=== PATIENT | male | born 1935 | race Hispanic/Latino ===

== ENCOUNTER 2016-05-22 13:51 | Inpatient (IN) | payer MEDICARE ==
[2016-05-22] MEDS ORDERED: PROVENTIL IH ONE ×2 (14:00→14:07)
[2016-05-22] MEDS ORDERED: NACL 0.9% 1000 ML 1,000 ML IV ONE (14:00)
[2016-05-22] MEDS ORDERED: ATROVENT IH ONE (14:08)
--- NOTE | 2016-05-22 14:25 | Emergency Department Report ---
ED Shortness of Breath HPI - General Chief Complaint: Dyspnea/Respdistress Stated Complaint: PRINCE Time Seen by Provider: 05/22/16 14:02 Source: police, EMS Mode of arrival: Stretcher Limitations: No Limitations - History of Present Illness Initial Comments: 80-year-old male presents to the emergency department via EMS complaining of difficulty breathing. Patient reports symptoms have been present for the past 3 days and have progressively gotten worse. He reports occasional cough productive of white sputum. He denies chest pain, fever, nausea, or vomiting. Patient normally wears 3 L of oxygen at home via nasal cannula. EMS administered 5 mg of albuterol, 125 mg of site Medrol, and 2 g of IV magnesium prior to arrival. There are no other complaints. MD Complaint: shortness of breath, cough -: Gradual, days(s) (3) Severity: severe Pain Scale: 0 Consistency: constant Improves With: nothing Worsens With: nothing Known History Of: COPD, diabetes Associated Symptoms: denies other symptoms Treatments Prior to Arrival: oxygen, bronchodilator - Related Data Home Oxygen Therapy: Yes Home Oxygen Amount: 3 Liters Allergies Allergy/AdvReac Type Severity Reaction Status Date / Time No Known Allergies Allergy Unverified 05/22/16 14:00 ED Review of Systems ROS: Stated complaint: PRINCE Other details as noted in HPI Comment: All other systems reviewed and negative Respiratory: cough, shortness of breath ED Past Medical Hx - Past Medical History Previous Medical History?: Yes Hx Hypertension: Yes Hx Diabetes: Yes Hx COPD: Yes - Surgical History Additional Surgical History: unknown - Family History Family history: no significant - Social History Smoking Status: Unknown if ever smoked Substance Use Type: None ED Physical Exam - General Limitations: Physical Limitation General appearance: alert, in distress (moderate respiratory distress) - Head Head exam: Present: atraumatic, normocephalic - Eye Eye exam: Present: normal appearance, PERRL, EOMI - ENT ENT exam: Present: normal exam, normal orophraynx, mucous membranes moist - Neck Neck exam: Present: normal inspection, full ROM. Absent: tenderness - Respiratory Respiratory exam: Present: respiratory distress (moderate tachypnea), wheezes ( diffuse posterior), accessory muscle use - Cardiovascular Cardiovascular Exam: Present: normal rhythm, tachycardia, normal heart sounds - GI/Abdominal GI/Abdominal exam: Present: soft, normal bowel sounds. Absent: distended, tenderness - Extremities Exam Extremities exam: Present: normal inspection, full ROM. Absent: tenderness - Back Exam Back exam: Present: normal inspection, full ROM. Absent: tenderness - Neurological Exam Neurological exam: Present: alert, oriented X3. Absent: motor sensory deficit - Skin Skin exam: Present: warm, dry, intact ED Course Vital Signs 05/22/16 05/22/16 05/22/16 13:57 14:01 14:05 Temperature 97.3 F L Pulse Rate 138 H 115 H Pulse Rate [ Anterior Bilateral Throughout] Respiratory 44 H 28 H Rate Respiratory Rate [Anterior Bilateral Throughout] Blood Pressure 170/110 O2 Sat by Pulse 90 100 Oximetry 05/22/16 05/22/16 05/22/16 14:18 15:17 15:19 Temperature Pulse Rate 108 H Pulse Rate [ 113 H 107 H Anterior Bilateral Throughout] Respiratory 31 H Rate Respiratory 34 H 31 H Rate [Anterior Bilateral Throughout] Blood Pressure 111/62 O2 Sat by Pulse 100 Oximetry 05/22/16 15:22 Temperature Pulse Rate Pulse Rate [ Anterior Bilateral Throughout] Respiratory Rate Respiratory Rate [Anterior Bilateral Throughout] Blood Pressure O2 Sat by Pulse 99 Oximetry - Reevaluation(s) Reevaluation #1: 05/22/16 14:24 Patient was immediately placed on NIPPV on arrival. This resulted in a decreased work of breathing. Administering an hour long nebulizer treatment. We will continue to monitor. Reevaluation #2: 05/22/16 15:35 Lab and imaging results reviewed and discussed with the patient. Patient reported feeling better on the BiPAP machine. Patient was given a trial off of the BiPAP, but certainly began having increased work of breathing and worsening shortness of breath. Patient will be placed back on the BiPAP machine. Having IV Levaquin. Patient is to be admitted by the hospitalist. ED Medical Decision Making - Lab Data Result diagrams: 05/22/16 14:25 05/22/16 14:24 - EKG Data -: EKG Interpreted by Me EKG shows normal: sinus rhythm, axis, QRS complexes Rate: tachycardia - EKG Data When compared to previous EKG there are: previous EKG unavailable Interpretation: nonspecific ST-T wave juan c, other (sinus tachycardia with first- degree AV block) - Radiology Data Radiology results: report reviewed, image reviewed Chest x-ray shows changes consistent with COPD. There is no acute cardiopulmonary abnormality. - Differential Diagnosis COPD exacerbation, pneumonia, ACS Critical care attestation.: If time is entered above; I have spent that time in minutes in the direct care of this critically ill patient, excluding procedure time. ED Disposition Clinical Impression: COPD exacerbation Disposition: OP ADMITTED IP TO THIS HOSP Is pt being admited?: Yes Condition: Stable Instructions: Chronic Obstructive Pulmonary Disease (ED) Time of Disposition: 15:36
[2016-05-22 14:33] LABS: Basophils % (Auto) 0.6 % (0.0-1.8); Eosinophils % (Auto) 1.1 % (0.0-4.3); Hematocrit 28.7 % (35.5-45.6); Hemoglobin 9.5 gm/dl (11.8-15.2); Mean Corpuscular HGB Conc 33 % (32-34); Mean Corpuscular Hemoglobin 29 pg (28-32); Mean Corpuscular Volume 88 fl (84-94); Platelet Count 272 K/mm3 (140-440); Red Blood Count 3.24 M/mm3 (3.65-5.03); Red Cell Distribution Width 15.5 % (13.2-15.2)
[2016-05-22 14:43] LABS: INR 1.09 (0.87-1.13)
--- NOTE | 2016-05-22 14:52 | XRay Report ---
AP CHEST: HISTORY: Sepsis AP view of the chest demonstrates a normal mediastinal and cardiac contour with clear lungs and normal bony and soft tissue structures. IMPRESSION: No acute cardiopulmonary process appreciated.
[2016-05-22 14:59] LABS: Creatine Kinase MB 2.1 ng/mL (0.0-4.0)
[2016-05-22 15:02] LABS: Albumin 3.5 g/dL (3.9-5); Albumin/Globulin Ratio 1.1 %; BUN/Creatinine Ratio 14.61; Bilirubin,Total 0.2 mg/dL (0.1-1.2); Calcium 8.5 mg/dL (8.4-10.2); Chloride 93.4 mmol/L (98-107); Potassium 4.3 mmol/L (3.6-5.0); Total Protein 6.8 g/dL (6.3-8.2)
[2016-05-22] MEDS ORDERED: LEVAQUIN 750MG/150ML 150 ML IV ONE (15:31)
[2016-05-22 23:46] LABS: Bilirubin,Urine NEG (Negative); Blood,Urine NEG (Negative); Ketones,Urine TR mg/dL (Negative); Leukocyte Esterase,Urine NEG (Negative); Mucus,Urine FEW /HPF; Nitrite,Urine NEG (Negative); Urobilinogen,Urine < 2.0 mg/dL (<2.0)
[2016-05-23] MEDS: ATIVAN IV PRN ×2 (03:16→14:20)
--- NOTE | 2016-05-23 04:10 | Event Note ---
Date: 05/22/16 See H/p in reports COPD exacerbation HTN T2DM HLD
[2016-05-23] MEDS ORDERED: PROAIR IH PRN (04:19)
[2016-05-23] MEDS ORDERED: ZOFRAN IV PRN (04:22)
[2016-05-23] MEDS ORDERED: DULCOLAX PR PRN (04:22)
[2016-05-23] MEDS ORDERED: MILK OF MAGNESIA PO PRN (04:22)
[2016-05-23] MEDS ORDERED: TYLENOL PO PRN (04:22)
[2016-05-23] MEDS ORDERED: PERCOCET 5/325 PO PRN (04:22)
[2016-05-23] MEDS ORDERED: DUONEB 0.5 MG-3 MG/3 ML SOLN IH PRN (04:24)
[2016-05-23] MEDS ORDERED: PROVENTIL IH PRN ×2 (04:32→09:04)
--- NOTE | 2016-05-23 05:05 | History and Physical Report ---
CHIEF COMPLAINT: Difficulty breathing. HISTORY OF PRESENT ILLNESS: An 80-year-old male, who presents via EMS for progressively worsening shortness of breath for three days. Reports cough, productive of mucoid sputum. Denies fever or chills. He was having shortness of breath. Normally wears 3 liters of oxygen at home via nasal cannula. The patient continues to be short of breath. EMS gave a nebulizer treatment and was Solu-Medrol and IV magnesium, but with no relief. Worsening shortness of breath. PAST MEDICAL HISTORY: Significant for hypertension, diabetes, COPD, hyperlipidemia, asthma, and vitamin D deficiency. PAST SURGICAL HISTORY: None known. FAMILY HISTORY: No hypertension. SOCIAL HISTORY: Does not smoke. No alcohol, no recreational drugs. REVIEW OF SYSTEMS: Significant for worsening shortness of breath. Cough productive of mucoid sputum. PHYSICAL EXAMINATION: GENERAL: On examination, well-developed, well-nourished male, in moderate respiratory distress. VITAL SIGNS: Blood pressure is 111/62, temperature is 97.3, blood pressure is 170/110, it has come down to 111/62, respiratory rate is 34. HEENT: Unremarkable. Pupils equal and reactive. NECK: Supple, no lymphadenopathy, no thyromegaly. Accessory muscles of respiration are prominent. LUNGS: Bilateral inspiratory and expiratory rhonchi present. CARDIOVASCULAR: S1, S2 heard. No gallop, no murmur, no rub. Apical impulse in left fifth intercostal space and midclavicular line. ABDOMEN: Soft and benign. No hepatosplenomegaly. No guarding, no rigidity. Hernial orifices are normal. EXTREMITIES: Good pedal pulses. No pedal edema. CENTRAL NERVOUS SYSTEM: Alert and oriented x 4, nonfocal exam. SKIN: Normal. LABORATORY DATA: White count is 6000, H and H is 9.5 and 28.7, platelet count is 272,000. Sodium is 133, potassium is 4.3, chloride is 93.4, bicarbonate is 19, BUN and creatinine is 19 and 1.3, glucose is 121, total CK is 53. Urine was negative. EKG shows normal sinus rhythm, nonspecific ST-T wave changes. Sinus tachycardia with first-degree AV block present. Chest x-ray shows changes consistent with COPD. No infiltrates. ASSESSMENT AND PLAN: 1. Chronic obstructive pulmonary disease excerebration with hypoxia. The patient on BiPAP. Continue DuoNeb, Solu-Medrol and Levaquin. Pulmonary consult by requested. 2. Hypertension. Continue Maxzide 37.5/25 and diltiazem 120 mg p.o. b.i.d. 3. Hyperlipidemia. Continue pravastatin 40 mg p.o. daily. 4. Non insulin-dependent diabetes. Continue metformin 500 mg twice a day. 5. Asthma/chronic obstructive pulmonary disease. Continue Singulair 10 mg daily, and Flonase 2 sprays daily and Advair Diskus 500/50, 1 puff b.i.d. 6. Allergic rhinitis. Loratadine 10 mg daily. 7. Deep venous thrombosis prophylaxis, Lovenox 40 mg subcutaneous daily. JOB# [id number] LARRY/ROQUE
[2016-05-23] MEDS: DUONEB 0.5 MG-3 MG/3 ML SOLN IH SCH ×4 (05:46→20:35)
[2016-05-23] MEDS ORDERED: PULMICORT IH SCH (08:00)
[2016-05-23] MEDS ORDERED: BROVANA NEBU IH SCH ×2 (08:00→20:00)
[2016-05-23] MEDS ORDERED: NON-FORMULARY (Fluticasone/Salmeterol [Advair Diskus 500-50 Mcg] 1 PUFF) IH SCH (10:00)
[2016-05-23] MEDS: LEVAQUIN 750MG/150ML 150 ML IV SCH (10:45)
[2016-05-23] MEDS: COZAAR PO SCH (10:46)
[2016-05-23] MEDS: MAXZIDE-25 PO SCH (10:47)
[2016-05-23] MEDS: CARDIZEM CD PO SCH ×2 (10:47→22:50)
[2016-05-23] MEDS: VITAMIN D2 PO SCH (10:47)
[2016-05-23] MEDS: ASPIRIN PO SCH (10:47)
[2016-05-23] MEDS: FLONASE NS SCH (10:48)
[2016-05-23] MEDS: NOVOLOG SUB-Q SCH ×4 (10:49→23:45)
[2016-05-23] MEDS: GLUCOPHAGE PO SCH ×2 (10:51→17:12)
--- NOTE | 2016-05-23 11:17 | Consultation ---
History of Present Illness Consult date: 05/23/16 Requesting physician: NOMI BAUTISTA Reason for consult: COPD History of present illness: PULMONARY/CCM CONSULT NOTE (Full dictation # [id number]) Please see dictated notes for full details Medications and Allergies Allergies Allergy/AdvReac Type Severity Reaction Status Date / Time No Known Allergies Allergy Unverified 05/22/16 14:00 Home Medications Medication Instructions Recorded Confirmed Last Taken Type Albuterol Sulfate [Ventolin HFA] 2 puff IH Q4H PRN 05/22/16 05/22/16 05/21/16 History Alendronate Sodium [Fosamax] 70 mg PO QWEEK 05/22/16 05/22/16 05/21/16 History Aspirin [Aspirin TAB] 325 mg PO QDAY 05/22/16 05/22/16 05/21/16 History Diltiazem HCl [Diltiazem ER] 120 mg PO BID 05/22/16 05/22/16 05/21/16 History Ergocalciferol [Vitamin D2] 1 cap PO QWEEK 05/22/16 05/22/16 05/21/16 History Fluticasone [Flonase] 2 spray NS QDAY 05/22/16 05/22/16 05/21/16 History Fluticasone/Salmeterol [Advair 1 puff IH BID 05/22/16 05/22/16 05/21/16 History Diskus 500-50 mcg] Ipratropium/Albuterol Sulfate 1 ampul IH Q6HR PRN 05/22/16 05/22/16 05/21/16 History [Duoneb 0.5 mg-3 mg/3 ml Soln] Ketoconazole 2% [Nizoral] 1 applicatio TP QDAY 05/22/16 05/22/16 05/21/16 History Loratadine [Claritin] 10 mg PO DAILY 05/22/16 05/22/16 05/21/16 History Losartan [Cozaar] 50 mg PO QDAY 05/22/16 05/22/16 05/21/16 History Meclizine HCl [Meclizine CHEW] 25 mg PO QDAY PRN 05/22/16 05/22/16 05/21/16 History Montelukast [Singulair] 10 mg PO QPM 05/22/16 05/22/16 05/21/16 History Pravastatin Sodium [Pravastatin] 40 mg PO QHS 05/22/16 05/22/16 05/21/16 History Triamter/Hctz 37.5-25 mg 1 tab PO QDAY 05/22/16 05/22/16 05/21/16 History [Maxzide-25] metFORMIN [Glucophage] 500 mg PO BID 05/22/16 05/22/16 05/21/16 History Active Meds: Active Medications Acetaminophen (Tylenol) 650 mg PO Q4H PRN PRN Reason: Pain MILD(1-3)/Fever >100.5/PÉREZ Albuterol (Proventil) 2.5 mg IH Q4HRT PRN PRN Reason: Shortness Of Breath Albuterol/Ipratropium (Duoneb 0.5 Mg-3 Mg/3 Ml Soln) 1 ampul IH Q6HRT [facility] Arformoterol Tartrate (Brovana Nebu) 15 mcg IH Q12HRT [facility] Aspirin (Aspirin) 325 mg PO QDAY [facility] Last Admin: 05/23/16 10:47 Dose: 325 mg Bisacodyl (Dulcolax) 10 mg NE QDAY PRN PRN Reason: Constipation unrelieved by MOM Budesonide (Pulmicort) 0.5 mg IH Q12HRT [facility] Diltiazem HCl (Cardizem Cd) 120 mg PO BID [facility] Last Admin: 05/23/16 10:47 Dose: 120 mg Ergocalciferol (Vitamin D2) 50,000 unit PO Sa [facility] Last Admin: 05/23/16 10:47 Dose: 50,000 unit Fluticasone Propionate (Flonase) 100 mcg NS QDAY [facility] Last Admin: 05/23/16 10:48 Dose: 100 mcg Hydromorphone HCl (Dilaudid) 0.5 mg IV Q3H PRN PRN Reason: Pain , Severe (7-10) Levofloxacin/Dextrose (Levaquin 750mg/150ml) 150 mls @ 100 mls/hr IV Q24HR [facility] PRN Reason: Protocol Last Admin: 05/23/16 10:45 Dose: 100 mls/hr Insulin Aspart (Novolog) 0 units SUB-Q ACHS [facility] PRN Reason: Protocol Last Admin: 05/23/16 10:49 Dose: Not Given Lorazepam (Ativan) 1 mg IV Q2H PRN PRN Reason: Anxiety Last Admin: 05/23/16 03:16 Dose: 1 mg Losartan Potassium (Cozaar) 50 mg PO QDAY [facility] Last Admin: 05/23/16 10:46 Dose: 50 mg Magnesium Hydroxide (Milk Of Magnesia) 30 ml PO Q4H PRN PRN Reason: Constipation Metformin HCl (Glucophage) 500 mg PO BIDDIAB [facility] Last Admin: 05/23/16 10:51 Dose: 500 mg Methylprednisolone Sodium Succinate (Solu-Medrol) 60 mg IV Q8HR [facility] Last Admin: 05/23/16 05:21 Dose: 60 mg Montelukast Sodium (Singulair) 10 mg PO QPM [facility] Ondansetron HCl (Zofran) 4 mg IV Q8H PRN PRN Reason: N/V unrelieved by Reglan Oxycodone/Acetaminophen (Percocet 5/325) 1 tab PO Q6H PRN PRN Reason: Pain, Moderate (4-6) Simvastatin (Zocor) 20 mg PO QHS [facility] Triamterene/HCTZ (Maxzide-25) 1 each PO QDAY [facility] Last Admin: 05/23/16 10:47 Dose: 1 each Physical Examination Vital signs: Vital Signs Temp Pulse BP Pulse Ox 97.3 F L 138 H 170/110 90 05/22/16 13:57 05/22/16 13:57 05/22/16 13:57 05/22/16 13:57 Results - Laboratory Findings CBC and BMP: 05/22/16 14:25 05/22/16 14:24 PT/INR, D-dimer PT 14.0 Sec. (12.2-14.9) 05/22/16 14:24 INR 1.09 (0.87-1.13) 05/22/16 14:24 Abnormal lab findings: Abnormal Labs 05/23/16 06:02 Hemoglobin A1c 6.4 H
--- NOTE | 2016-05-23 13:16 | Progress Note ---
Assessment and Plan Assessment and plan: 80-year-old male admitted with shortness of breath for 3 days reported cough with productive sputum on admission. With no chills. Normally on 3 L of oxygen at home. Requiring BiPAP. * Acute on chronic hypoxic respiratory failure * COPD exacerbation/+-asthma * Diabetes mellitus uncontrolled * Hypertension * Tremor * Hyperlipidemia * Allergic rhinitis * Metabolic acidosis * Sinus tachycardia Plan * Patient currently on BiPAP will continue this point suspicion does not have good air movement. Continues on Solu-Medrol with Levaquin. * Pulmonary input appreciated * Continue systemic IV steroids and inhaled steroids and also nebulizer treatments * We'll continue to monitor blood glucose is 6. * Prognosis guarded * SODIUM bicarbonate medication list monitor. * Tremor noted with movement patient denies history of Parkinson oral require further evaluation of the patient's versus if this is secondary to steroids I doubt the latter. * DVT and GI prophylaxis * The high probability of a clinically significant, sudden or life threatening deterioration of the [respiratory] system(s) required my full and direct attention, intervention and personal management. The aggregate critical care time was [35] minutes. This time is in addition to time spent performing reported procedures but includes the following: [x] Data Review and interpretation [x] Patient assessment and monitoring of vital signs [x] Documentation [x] Medication orders and management History Interval history: Patient seen and examined this morning in moderate respiratory distress Denies any chest pain, nausea, vomiting, diarrhea, but patient still has significant shortness of breath continues on BiPAP. No fever noted blood pressure controlled No adverse events reported to me by nursing staff Hospitalist Physical - Physical exam Narrative exam: VITAL SIGNS: Reviewed. GENERAL: The patient appeared well nourished and normally developed on BiPAP, anxious moderate respiratory distress. Vital signs as documented. HEAD: No signs of head trauma. EYES: Pupils are equal. Extraocular motions intact. EARS: Hearing grossly intact. MOUTH: Oropharynx is normal. NECK: No adenopathy, no JVD. CHEST: Chest with diminished with expiratory wheezes breath sounds bilaterally CARDIAC: Regular rate and rhythm. S1 and S2, without murmurs, gallops, or rubs. VASCULAR: No Edema. Peripheral pulses normal and equal in all extremities. ABDOMEN: Soft, without detectable tenderness. No sign of distention. No rebound or guarding, and no masses palpated. Bowel Sounds normal. MUSCULOSKELETAL: Good range of motion of all major joints. Extremities without clubbing, cyanosis or edema. NEUROLOGIC EXAM: Alert and oriented x 3. No focal sensory or strength deficits. Speech normal. Follows commands. PSYCHIATRIC: Mood normal. SKIN: No rash or lesions. - Constitutional Vitals: Temp Pulse Resp BP Pulse Ox 98.6 F 131 H 29 H 134/93 99 05/23/16 12:32 05/23/16 12:32 05/23/16 12:32 05/23/16 12:32 05/23/16 10:39 Results - Labs CBC & Chem 7: 05/22/16 14:25 05/22/16 14:24 Labs: Laboratory Last Values WBC 6.0 K/mm3 (4.5-11.0) 05/22/16 14:25 RBC 3.24 M/mm3 (3.65-5.03) L 05/22/16 14:25 Hgb 9.5 gm/dl (11.8-15.2) L 05/22/16 14:25 Hct 28.7 % (35.5-45.6) L 05/22/16 14:25 MCV 88 fl (84-94) 05/22/16 14:25 MCH 29 pg (28-32) 05/22/16 14:25 MCHC 33 % (32-34) 05/22/16 14:25 RDW 15.5 % (13.2-15.2) H 05/22/16 14:25 Plt Count 272 K/mm3 (140-440) 05/22/16 14:25 Lymph % (Auto) 13.0 % (13.4-35.0) L 05/22/16 14:25 [place] % (Auto) 13.1 % (0.0-7.3) H 05/22/16 14:25 Eos % (Auto) 1.1 % (0.0-4.3) 05/22/16 14:25 Baso % (Auto) 0.6 % (0.0-1.8) 05/22/16 14:25 Lymph # 0.8 K/mm3 (1.2-5.4) L 05/22/16 14:25 [place] # 0.8 K/mm3 (0.0-0.8) 05/22/16 14:25 Eos # 0.1 K/mm3 (0.0-0.4) 05/22/16 14:25 Baso # 0.0 K/mm3 (0.0-0.1) 05/22/16 14:25 Seg Neutrophils % 72.2 % (40.0-70.0) H 05/22/16 14:25 Seg Neutrophils # 4.4 K/mm3 (1.8-7.7) 05/22/16 14:25 PT 14.0 Sec. (12.2-14.9) 05/22/16 14:24 INR 1.09 (0.87-1.13) 05/22/16 14:24 VBG pH 7.403 (7.320-7.420) 05/22/16 14:24 Sodium 133 mmol/L (137-145) L 05/22/16 14:24 Potassium 4.3 mmol/L (3.6-5.0) 05/22/16 14:24 Chloride 93.4 mmol/L (98-107) L 05/22/16 14:24 Carbon Dioxide 19 mmol/L (22-30) L 05/22/16 14:24 Anion Gap 25 mmol/L 05/22/16 14:24 BUN 19 mg/dL (9-20) 05/22/16 14:24 Creatinine 1.3 mg/dL (0.8-1.5) 05/22/16 14:24 Estimated GFR 53 ml/min 05/22/16 14:24 BUN/Creatinine Ratio 14.61 % 05/22/16 14:24 Glucose 121 mg/dL (75-100) H 05/22/16 14:24 Hemoglobin A1c 6.4 % (4-6) H 05/23/16 06:02 Lactic Acid 1.5 mmol/L (0.7-2.0) 05/22/16 17:24 Calcium 8.5 mg/dL (8.4-10.2) 05/22/16 14:24 Total Bilirubin 0.2 mg/dL (0.1-1.2) 05/22/16 14:24 AST 16 units/L (5-40) 05/22/16 14:24 ALT 12 units/L (7-56) 05/22/16 14:24 Alkaline Phosphatase 107 units/L (35-129) 05/22/16 14:24 Total Creatine Kinase 53 units/L (55-170) L 05/22/16 14:24 CK-MB (CK-2) 2.1 ng/mL (0.0-4.0) 05/22/16 14:24 CK-MB (CK-2) Rel Index 3.9 (0-4) 05/22/16 14:24 Troponin T 0.023 ng/mL (0.00-0.029) 05/22/16 14:24 NT-Pro-B Natriuret Pep 316.0 pg/mL (0-900) 05/22/16 14:24 Total Protein 6.8 g/dL (6.3-8.2) 05/22/16 14:24 Albumin 3.5 g/dL (3.9-5) L 05/22/16 14:24 Albumin/Globulin Ratio 1.1 % 05/22/16 14:24 Urine Color Yellow (Yellow) 05/22/16 22:30 Urine Turbidity Clear (Clear) 05/22/16 22:30 Urine pH 5.0 (5.0-7.0) 05/22/16 22:30 Ur Specific [place] 1.016 (1.003-1.030) 05/22/16 22:30 Urine Protein 30 mg/dl mg/dL (Negative) 05/22/16 22:30 Urine Glucose (UA) Neg mg/dL (Negative) 05/22/16 22:30 Urine Ketones Tr mg/dL (Negative) 05/22/16 22:30 Urine Blood Neg (Negative) 05/22/16 22:30 Urine Nitrite Neg (Negative) 05/22/16 22:30 Urine Bilirubin Neg (Negative) 05/22/16 22:30 Urine Urobilinogen < 2.0 mg/dL (<2.0) 05/22/16 22:30 Ur Leukocyte Esterase Neg (Negative) 05/22/16 22:30 Urine WBC (Auto) 3.0 /HPF (0.0-6.0) 05/22/16 22:30 Urine RBC (Auto) 1.0 /HPF (0.0-6.0) 05/22/16 22:30 U Epithel Cells (Auto) < 1.0 /HPF (0-13.0) 05/22/16 22:30 Hyaline Casts 1 /LPF 05/22/16 22:30 Urine Mucus Few /HPF 05/22/16 22:30 - Imaging and Cardiology EKG: image reviewed (sinus tachycardia) Chest x-ray: image reviewed (personally reviewed chest x-ray COPD appearance of the)
[2016-05-23] MEDS: SINGULAIR PO SCH (17:12)
[2016-05-23] MEDS: PEPCID IV SCH (17:14)
[2016-05-23] MEDS: PULMICORT IH SCH (20:35)
[2016-05-23] MEDS: ZOCOR PO SCH (22:50)
[2016-05-23] MEDS: LOVENOX SUB-Q SCH (22:51)
[2016-05-24] MEDS: DUONEB 0.5 MG-3 MG/3 ML SOLN IH SCH ×4 (01:47→21:34)
[2016-05-24] MEDS: ATIVAN IV PRN ×3 (04:03→20:01)
[2016-05-24] MEDS: PULMICORT IH SCH ×2 (07:14→21:34)
[2016-05-24 09:04] LABS: Hematocrit 28.6 % (35.5-45.6); Hemoglobin 9.6 gm/dl (11.8-15.2); Mean Corpuscular HGB Conc 34 % (32-34); Mean Corpuscular Hemoglobin 30 pg (28-32); Mean Corpuscular Volume 88 fl (84-94); Platelet Count 323 K/mm3 (140-440); Red Blood Count 3.24 M/mm3 (3.65-5.03); Red Cell Distribution Width 15.7 % (13.2-15.2); White Blood Count 10.8 K/mm3 (4.5-11.0)
[2016-05-24 09:11] LABS: BUN/Creatinine Ratio 27.85; Calcium 8.6 mg/dL (8.4-10.2); Chloride 93.9 mmol/L (98-107); Potassium 4.3 mmol/L (3.6-5.0)
[2016-05-24 11:06] LABS: Basophils % (Manual) 0 % (0.0-1.8); Blastocytes % (Manual) 0 %; Eosinophils % (Manual) 0 % (0.0-4.3)
[2016-05-24 11:07] LABS: Anisocytosis 1+; Diff Status Complete; Tear Drop Cells Rare
[2016-05-24] MEDS: ASPIRIN PO SCH (11:30)
[2016-05-24] MEDS: COZAAR PO SCH (11:31)
[2016-05-24] MEDS: CARDIZEM CD PO SCH ×2 (11:31→22:40)
[2016-05-24] MEDS: PEPCID IV SCH (11:32)
[2016-05-24] MEDS: LEVAQUIN 750MG/150ML 150 ML IV SCH (11:32)
[2016-05-24] MEDS: NOVOLOG SUB-Q SCH ×3 (11:33→23:55)
--- NOTE | 2016-05-24 12:04 | Consultation ---
CONSULTING PHYSICIAN: Dr. Romo. REASON FOR CONSULTATION: Acute on chronic respiratory failure, hypoxemic, acute COPD exacerbation. CHIEF COMPLAINT AND HISTORY OF PRESENT ILLNESS: The patient is an 80-year-old male with past medical history significant amongst other things with a diagnosis of COPD-home oxygen dependent. He came in complaining of increasing shortness of breath, it had been going on over 3-4 days. He denied any sudden onset of the symptoms, he denied any chest pain. He denied any hemoptysis. He was producing white sputum more than his usual baseline. He did admit to some sick contacts at home. He denies running out of his home oxygen or bronchodilators. In the Emergency Room, he was found to indeed be significantly short of breath, placed on BiPAP and admitted to telemetry floor. When I stopped by to see him, he remained on the BiPAP mask was feeling a little bit better, but states that he needed the mask to breathe at this time. He denied any nausea, vomiting. Denied fevers or chills. When asked about his tobacco use or abuse history he has a 30+ pack year tobacco smoking history, but quit smoking in 2011. Really this is much of the history at presentation as I have. PAST MEDICAL HISTORY: Chronic obstructive lung disease, diabetes. He is obese. He also has a history of hypertension. PAST SURGICAL HISTORY: Unknown. MEDICATIONS: He was on at the time I stopped by to see him, according to the medication administration record included the following: Tylenol 650 mg p.o. q.4 hours p.r.n., DuoNeb treatments scheduled q.6 hours, aspirin 325 mg p.o. daily, p.r.n. Dulcolax, Pulmicort 0.5 mg inhaled q.12 hours, Cardizem CD 120 mg p.o. b.i.d., vitamin D2 of 50,000 units p.o. I believe once a week, Flonase 100 mcg each nostril daily, Dilaudid 0.5 mg IV q.3 hours p.r.n., insulin via sliding scale, Levaquin 750 mg IV daily, lorazepam 1 mg IV q.12 hours p.r.n. anxiety, losartan 50 mg p.o. daily, p.r.n. milk of magnesia, Glucophage 500 mg p.o. b.i.d., Solu-Medrol 60 mg IV q.8 hours, Singulair 10 mg p.o. at bedtime, Zofran 4 mg IV q.8 hours p.r.n. nausea and vomiting, p.r.n. Percocet 1 tablet q.6 hours p.r.n. moderate pain, Zocor 20 mg p.o. at bedtime, and Maxzide 25 one tablet p.o. daily. ALLERGIES: No known drug allergies. DIET: Obese gentleman. Denies significant weight loss or gain preceding few weeks to months. FAMILY AND SOCIAL HISTORY: Lives in the community, 30+ pack year tobacco smoking history. Denies alcohol or illicit drug use or abuse. REVIEW OF SYSTEMS: No loss of consciousness. No new onset seizures. No new onset focal weakness. No gross hematochezia or melena. No gross hematuria or dysuria. No hematemesis. No hemoptysis. No palpitations. Complete review of systems obtained. Pertinent positives and/or negatives as in body of history above, otherwise they are noncontributory. PHYSICAL EXAMINATION: VITAL SIGNS: At initial presentation in the Emergency Room review of his vital signs shows that he was afebrile, temperature 97.3, pulse was 138, respiratory rate 40, short of breath, accessory muscle use, nasal flaring, blood pressure 170/110, oxygen sats were 90%, inspired oxygen concentration was not recorded. HEAD, EYES, EARS, NOSE AND THROAT: Pupils are equal, round, about 4 mm, reactive to light. Extraocular muscle movements are intact. Oropharynx is a Mallampati 3. Oropharynx with mild oropharyngeal pallor. Grossly, no palpable lymph nodes in the supraclavicular or submandibular lymph node chains. No gross jugular venous distention. LUNGS: Auscultation of both lung wilson significant for diminished bilateral breath sounds, prolonged expiratory phase, faint expiratory wheezing in the upper lung zones and occasional basilar rales. HEART: Heart sounds 1 and 2 are heard at the time of my evaluation, regular rate and rhythm. ABDOMEN: Soft, bowel sounds are positive, did not appear tender. EXTREMITIES: Without overt digital clubbing, cyanosis, or pedal edema. NEUROLOGIC: The exam was grossly nonfocal. LABORATORY DATA: From my review, white cell count 6000, hemoglobin 9.5, hematocrit 28.7, platelets 272. INR 1.09. Venous blood gas was 7.40 in the pH, serum sodium 133, potassium 4.3, chloride 93, bicarb 19, BUN 19, creatinine 1.3, glucose 121. Hemoglobin A1c is slightly elevated at 6.4, cardiac enzymes essentially within normal limits. Liver function tests essentially within normal limits. Urine nitrites and leukocyte esterase are negative ____. Radiographic studies have been reviewed. I have also reviewed the radiologist's interpretation and certainly, no acute cardiopulmonary process, but chronic increased interstitial markings in a chronic looking pattern, flattening of both hemidiaphragms, consistent with the hyperinflation. No gross pneumothorax, no gross bony fracture. ASSESSMENT AND PLAN: We have an elderly gentleman in with an acute chronic obstructive pulmonary disease exacerbation. It is unclear if there is hypercapnia included and this we will find out. We will get an arterial blood gas and use those to adjust the bilevel positive air pressure ventilation settings as necessary, he is currently on 16 I believe and tolerating well. We will continue the same. Aspiration precautions will be maintained. Bronchodilators will be continued, ____ short acting. I will also add long acting bronchodilators in the form of Brovana and systemic steroids will be continued for now. He will be placed on gastrointestinal prophylaxis as well as deep venous thrombosis prophylaxis. D-dimer level will be ordered. ____ rule out venous thromboembolic phenomenon. Flu and pneumonia will be per protocol vaccination. Thank you very much for the consult. I should mention he quit smoking in 2011. He is up to date on his flu and pneumonia vaccination. We will follow along. We will make further recommendations as picture progresses/becomes clearer. JOB# [id number] AJTrinity/[email or web address]
[2016-05-24] MEDS ORDERED: D50W (25GM) IV PRN (12:30)
--- NOTE | 2016-05-24 13:30 | Progress Note ---
Assessment and Plan Assessment and plan: 80-year-old male admitted with shortness of breath for 3 days reported cough with productive sputum on admission. With no chills. Normally on 3 L of oxygen at home. Requiring BiPAP. * Acute on chronic hypoxic respiratory failure * COPD exacerbation/+-asthma * Diabetes mellitus uncontrolled * Elevated d-dimer * Hypertension * Tremor * Hyperlipidemia * Allergic rhinitis * Metabolic acidosis * Sinus tachycardia Plan * Patient currently on BiPAP will continue this point suspicion does not have good air movement. Continues on Solu-Medrol with Levaquin. * Pulmonary input appreciated * We'll obtain a stat CTA to rule out PE * Continue systemic IV steroids and inhaled steroids and also nebulizer treatments * We'll continue to monitor blood glucose . * Prognosis guarded * SODIUM bicarbonate medication list monitor. * Tremor noted with movement patient denies history of Parkinson oral require further evaluation of the patient's versus if this is secondary to steroids I doubt the latter. * DVT and GI prophylaxis * The high probability of a clinically significant, sudden or life threatening deterioration of the [respiratory] system(s) required my full and direct attention, intervention and personal management. The aggregate critical care time was [35] minutes. This time is in addition to time spent performing reported procedures but includes the following: [x] Data Review and interpretation [x] Patient assessment and monitoring of vital signs [x] Documentation [x] Medication orders and management History Interval history: Patient seen and examined this morning in moderate respiratory distress Denies any chest pain, nausea, vomiting, diarrhea, but patient still has significant shortness of breath continues on BiPAP. No fever noted blood pressure controlled No adverse events reported to me by nursing staff Hospitalist Physical - Physical exam Narrative exam: VITAL SIGNS: Reviewed. GENERAL: The patient appeared well nourished and normally developed on BiPAP, moderate respiratory distress. Vital signs as documented. HEAD: No signs of head trauma. EYES: Pupils are equal. Extraocular motions intact. EARS: Hearing grossly intact. MOUTH: Oropharynx is normal. NECK: No adenopathy, no JVD. CHEST: Chest with diminished with expiratory wheezes breath sounds bilaterally , with increased work of breathing CARDIAC: Regular rate and rhythm. S1 and S2, without murmurs, gallops, or rubs. VASCULAR: No Edema. Peripheral pulses normal and equal in all extremities. ABDOMEN: Soft, without detectable tenderness. No sign of distention. No rebound or guarding, and no masses palpated. Bowel Sounds normal. MUSCULOSKELETAL: Good range of motion of all major joints. Extremities without clubbing, cyanosis or edema. NEUROLOGIC EXAM: Alert and oriented x 3. No focal sensory or strength deficits. Speech normal. Follows commands. PSYCHIATRIC: Mood normal. SKIN: No rash or lesions. - Constitutional Vitals: Temp Pulse Resp BP Pulse Ox 97.6 F 104 H 18 160/74 93 05/24/16 11:30 05/24/16 11:31 05/24/16 11:30 05/24/16 11:31 05/24/16 08:00 Results - Labs CBC & Chem 7: 05/24/16 08:08 05/24/16 08:08 Labs: Laboratory Last Values WBC 10.8 K/mm3 (4.5-11.0) 05/24/16 08:08 RBC 3.24 M/mm3 (3.65-5.03) L 05/24/16 08:08 Hgb 9.6 gm/dl (11.8-15.2) L 05/24/16 08:08 Hct 28.6 % (35.5-45.6) L 05/24/16 08:08 MCV 88 fl (84-94) 05/24/16 08:08 MCH 30 pg (28-32) 05/24/16 08:08 MCHC 34 % (32-34) 05/24/16 08:08 RDW 15.7 % (13.2-15.2) H 05/24/16 08:08 Plt Count 323 K/mm3 (140-440) 05/24/16 08:08 Lymph % (Auto) 13.0 % (13.4-35.0) L 05/22/16 14:25 [place] % (Auto) 13.1 % (0.0-7.3) H 05/22/16 14:25 Eos % (Auto) 1.1 % (0.0-4.3) 05/22/16 14:25 Baso % (Auto) 0.6 % (0.0-1.8) 05/22/16 14:25 Lymph # 0.8 K/mm3 (1.2-5.4) L 05/22/16 14:25 [place] # 0.8 K/mm3 (0.0-0.8) 05/22/16 14:25 Eos # 0.1 K/mm3 (0.0-0.4) 05/22/16 14:25 Baso # 0.0 K/mm3 (0.0-0.1) 05/22/16 14:25 Add Manual Diff Complete 05/24/16 08:08 Total Counted 100 05/24/16 08:08 Seg Neutrophils % Rehabilitation Program Manager 05/24/16 08:08 Seg Neuts % (Manual) 71.0 % (40.0-70.0) H 05/24/16 08:08 Band Neutrophils % 19.0 % 05/24/16 08:08 Lymphocytes % (Manual) 7.0 % (13.4-35.0) L 05/24/16 08:08 Reactive Lymphs % (Man) 0 % 05/24/16 08:08 Monocytes % (Manual) 3.0 % (0.0-7.3) 05/24/16 08:08 Eosinophils % (Manual) 0 % (0.0-4.3) 05/24/16 08:08 Basophils % (Manual) 0 % (0.0-1.8) 05/24/16 08:08 Metamyelocytes % 0 % 05/24/16 08:08 Myelocytes % 0 % 05/24/16 08:08 Promyelocytes % 0 % 05/24/16 08:08 Blast Cells % 0 % 05/24/16 08:08 Nucleated RBC % Not Reportable 05/24/16 08:08 Seg Neutrophils # 4.4 K/mm3 (1.8-7.7) 05/22/16 14:25 Seg Neutrophils # Man 7.7 K/mm3 (1.8-7.7) 05/24/16 08:08 Band Neutrophils # 2.1 K/mm3 05/24/16 08:08 Lymphocytes # (Manual) 0.8 K/mm3 (1.2-5.4) L 05/24/16 08:08 Abs React Lymphs (Man) 0.0 K/mm3 05/24/16 08:08 Monocytes # (Manual) 0.3 K/mm3 (0.0-0.8) 05/24/16 08:08 Eosinophils # (Manual) 0.0 K/mm3 (0.0-0.4) 05/24/16 08:08 Basophils # (Manual) 0.0 K/mm3 (0.0-0.1) 05/24/16 08:08 Metamyelocytes # 0.0 K/mm3 05/24/16 08:08 Myelocytes # 0.0 K/mm3 05/24/16 08:08 Promyelocytes # 0.0 K/mm3 05/24/16 08:08 Blast Cells # 0.0 K/mm3 05/24/16 08:08 WBC Morphology Not Reportable 05/24/16 08:08 Hypersegmented Neuts Not Reportable 05/24/16 08:08 Hyposegmented Neuts Not Reportable 05/24/16 08:08 Hypogranular Neuts Not Reportable 05/24/16 08:08 Smudge Cells Not Reportable 05/24/16 08:08 Toxic Granulation Not Reportable 05/24/16 08:08 Toxic Vacuolation Not Reportable 05/24/16 08:08 Dohle Bodies Not Reportable 05/24/16 08:08 Pelger-Huet Anomaly Not Reportable 05/24/16 08:08 Bari Rods Not Reportable 05/24/16 08:08 Platelet Estimate Not Reportable 05/24/16 08:08 Clumped Platelets Not Reportable 05/24/16 08:08 Plt Clumps, EDTA Not Reportable 05/24/16 08:08 Large Platelets Not Reportable 05/24/16 08:08 Giant Platelets Not Reportable 05/24/16 08:08 Platelet Satelliting Not Reportable 05/24/16 08:08 Plt Morphology Comment Not Reportable 05/24/16 08:08 RBC Morphology Not Reportable 05/24/16 08:08 Dimorphic RBCs Not Reportable 05/24/16 08:08 Polychromasia Not Reportable 05/24/16 08:08 Hypochromasia Not Reportable 05/24/16 08:08 Poikilocytosis Not Reportable 05/24/16 08:08 Anisocytosis 1+ 05/24/16 08:08 Microcytosis Not Reportable 05/24/16 08:08 Macrocytosis Not Reportable 05/24/16 08:08 Spherocytes Not Reportable 05/24/16 08:08 Pappenheimer Bodies Not Reportable 05/24/16 08:08 Sickle Cells Not Reportable 05/24/16 08:08 Target Cells Not Reportable 05/24/16 08:08 Tear Drop Cells Rare 05/24/16 08:08 Ovalocytes Not Reportable 05/24/16 08:08 Helmet Cells Not Reportable 05/24/16 08:08 [place] Bodies Not Reportable 05/24/16 08:08 [place] Rings Not Reportable 05/24/16 08:08 [place] Cells Not Reportable 05/24/16 08:08 Bite Cells Not Reportable 05/24/16 08:08 Crenated Cell Not Reportable 05/24/16 08:08 Elliptocytes Not Reportable 05/24/16 08:08 Acanthocytes (Spur) Not Reportable 05/24/16 08:08 Rouleaux Not Reportable 05/24/16 08:08 Hemoglobin C Crystals Not Reportable 05/24/16 08:08 Schistocytes Not Reportable 05/24/16 08:08 Malaria parasites Not Reportable 05/24/16 08:08 Andrea Bodies Not Reportable 05/24/16 08:08 Hem Pathologist Commnt No 05/24/16 08:08 PT 14.0 Sec. (12.2-14.9) 05/22/16 14:24 INR 1.09 (0.87-1.13) 05/22/16 14:24 D-Dimer 239.48 ng/mlDDU (0-234) H 05/23/16 14:16 VBG pH 7.403 (7.320-7.420) 05/22/16 14:24 Sodium 132 mmol/L (137-145) L 05/24/16 08:08 Potassium 4.3 mmol/L (3.6-5.0) 05/24/16 08:08 Chloride 93.9 mmol/L (98-107) L 05/24/16 08:08 Carbon Dioxide 18 mmol/L (22-30) L 05/24/16 08:08 Anion Gap 24 mmol/L 05/24/16 08:08 BUN 39 mg/dL (9-20) H 05/24/16 08:08 Creatinine 1.4 mg/dL (0.8-1.5) 05/24/16 08:08 Estimated GFR 49 ml/min 05/24/16 08:08 BUN/Creatinine Ratio 27.85 % 05/24/16 08:08 Glucose 166 mg/dL (75-100) H 05/24/16 08:08 POC Glucose 173 (70-105) H 05/24/16 08:19 Hemoglobin A1c 6.4 % (4-6) H 05/23/16 06:02 Lactic Acid 1.5 mmol/L (0.7-2.0) 05/22/16 17:24 Calcium 8.6 mg/dL (8.4-10.2) 05/24/16 08:08 Total Bilirubin 0.2 mg/dL (0.1-1.2) 05/22/16 14:24 AST 16 units/L (5-40) 05/22/16 14:24 ALT 12 units/L (7-56) 05/22/16 14:24 Alkaline Phosphatase 107 units/L (35-129) 05/22/16 14:24 Total Creatine Kinase 53 units/L (55-170) L 05/22/16 14:24 CK-MB (CK-2) 2.1 ng/mL (0.0-4.0) 05/22/16 14:24 CK-MB (CK-2) Rel Index 3.9 (0-4) 05/22/16 14:24 Troponin T 0.023 ng/mL (0.00-0.029) 05/22/16 14:24 NT-Pro-B Natriuret Pep 316.0 pg/mL (0-900) 05/22/16 14:24 Total Protein 6.8 g/dL (6.3-8.2) 05/22/16 14:24 Albumin 3.5 g/dL (3.9-5) L 05/22/16 14:24 Albumin/Globulin Ratio 1.1 % 05/22/16 14:24 Urine Color Yellow (Yellow) 05/22/16 22:30 Urine Turbidity Clear (Clear) 05/22/16 22:30 Urine pH 5.0 (5.0-7.0) 05/22/16 22:30 Ur Specific [place] 1.016 (1.003-1.030) 05/22/16 22:30 Urine Protein 30 mg/dl mg/dL (Negative) 05/22/16 22:30 Urine Glucose (UA) Neg mg/dL (Negative) 05/22/16 22:30 Urine Ketones Tr mg/dL (Negative) 05/22/16 22:30 Urine Blood Neg (Negative) 05/22/16 22:30 Urine Nitrite Neg (Negative) 05/22/16 22:30 Urine Bilirubin Neg (Negative) 05/22/16 22:30 Urine Urobilinogen < 2.0 mg/dL (<2.0) 05/22/16 22:30 Ur Leukocyte Esterase Neg (Negative) 05/22/16 22:30 Urine WBC (Auto) 3.0 /HPF (0.0-6.0) 05/22/16 22:30 Urine RBC (Auto) 1.0 /HPF (0.0-6.0) 05/22/16 22:30 U Epithel Cells (Auto) < 1.0 /HPF (0-13.0) 05/22/16 22:30 Hyaline Casts 1 /LPF 05/22/16 22:30 Urine Mucus Few /HPF 05/22/16 22:30
--- NOTE | 2016-05-24 14:02 | Progress Note ---
Assessment and Plan - Patient Problems (1) Acute exacerbation of chronic obstructive pulmonary disease (COPD) Current Visit: Yes Status: Acute Plan to address problem: - continue supplemental oxygen to keep sats >/= 92% - continue empiric AB's and follow cultures - continue qhs & prn BIPAP in daytime - continue ALIN and LABA - systemic steroids slow taper - complete VTE w/up (2) Acute on chronic respiratory failure with hypoxemia Current Visit: Yes Status: Acute Plan to address problem: - as above (3) Obesity Current Visit: Yes Status: Acute Plan to address problem: - weight loss - outpatient PSG Subjective Date of service: 05/24/16 Principal diagnosis: Acute on Chronic Hypoxemic Respiratory Failure Interval history: Seen and examined at bedside; 24 hour events reviewed; nursing and respiratory care staff consulted; no adverse overnight events reported to me; sitting in bed ; on BIPAP but wants to come off to eat; feels a little better; no N/V/F/C Objective Vital Signs - 12hr 05/24/16 05/24/16 05/24/16 06:00 07:11 07:15 Temperature 97.8 F Pulse Rate 109 H Pulse Rate [ 105 H Anterior Bilateral Middle Lobe] Pulse Rate [ From Monitor] Pulse Rate [ 104 H Left Radial] Respiratory 30 H 31 H Rate Respiratory 23 Rate [Anterior Bilateral Middle Lobe] Blood Pressure Blood Pressure 139/77 [Left Arm] O2 Sat by Pulse 100 Oximetry 05/24/16 05/24/16 05/24/16 07:27 08:00 11:30 Temperature 97.8 F 97.6 F Pulse Rate Pulse Rate [ 107 H Anterior Bilateral Middle Lobe] Pulse Rate [ 105 H From Monitor] Pulse Rate [ 110 H Left Radial] Respiratory 20 18 Rate Respiratory 25 H Rate [Anterior Bilateral Middle Lobe] Blood Pressure Blood Pressure 160/74 154/83 [Left Arm] O2 Sat by Pulse 93 Oximetry 05/24/16 11:31 Temperature Pulse Rate 101 H Pulse Rate [ Anterior Bilateral Middle Lobe] Pulse Rate [ From Monitor] Pulse Rate [ Left Radial] Respiratory Rate Respiratory Rate [Anterior Bilateral Middle Lobe] Blood Pressure 160/74 Blood Pressure [Left Arm] O2 Sat by Pulse Oximetry Constitutional: alert, appears uncomfortable Eyes: non-icteric ENT: oropharynx moist Neck: supple, no lymphadenopathy Effort: mildly labored Ascultation: Bilateral: diminished breath sounds, rhonchi Cardiovascular: regular rate and rhythm Gastrointestinal: normoactive bowel sounds, soft, non-tender, non-distended Integumentary: normal Extremities: no cyanosis, no edema, pink and warm, pulses normal Neurologic: normal mental status, non-focal exam, pupils equal and round, motor strength normal and Psychiatric: mood appropriate, affect normal CBC and BMP: 05/24/16 08:08 05/24/16 08:08 ABG, PT/INR, D-dimer: PT/INR, D-dimer PT 14.0 Sec. (12.2-14.9) 05/22/16 14:24 INR 1.09 (0.87-1.13) 05/22/16 14:24 D-Dimer 239.48 ng/mlDDU (0-234) H 05/23/16 14:16 Abnormal lab findings: Abnormal Labs 05/23/16 05/23/16 05/23/16 06:02 09:35 11:22 RBC Hgb Hct RDW Seg Neuts % (Manual) Lymphocytes % (Manual) Lymphocytes # (Manual) D-Dimer Sodium Chloride Carbon Dioxide BUN Glucose POC Glucose 174 H 232 H Hemoglobin A1c 6.4 H 05/23/16 05/23/16 05/23/16 14:16 16:07 22:23 RBC Hgb Hct RDW Seg Neuts % (Manual) Lymphocytes % (Manual) Lymphocytes # (Manual) D-Dimer 239.48 H Sodium Chloride Carbon Dioxide BUN Glucose POC Glucose 126 H 171 H Hemoglobin A1c 05/24/16 05/24/16 05/24/16 08:08 08:08 08:19 RBC 3.24 L Hgb 9.6 L Hct 28.6 L RDW 15.7 H Seg Neuts % (Manual) 71.0 H Lymphocytes % (Manual) 7.0 L Lymphocytes # (Manual) 0.8 L D-Dimer Sodium 132 L Chloride 93.9 L Carbon Dioxide 18 L BUN 39 H Glucose 166 H POC Glucose 173 H Hemoglobin A1c Chest x-ray: image reviewed
[2016-05-24] MEDS ORDERED: LEVEMIR SUB-Q SCH (22:00)
[2016-05-24] MEDS: LOVENOX SUB-Q SCH (22:41)
[2016-05-24] MEDS: ZOCOR PO SCH (22:42)
[2016-05-25] MEDS: DUONEB 0.5 MG-3 MG/3 ML SOLN IH SCH ×4 (02:51→19:50)
[2016-05-25] MEDS: ATIVAN IV PRN (04:02)
[2016-05-25] MEDS: PULMICORT IH SCH ×2 (09:14→19:50)
[2016-05-25] MEDS: FLONASE NS SCH (09:32)
[2016-05-25] MEDS: MAXZIDE-25 PO SCH (09:33)
[2016-05-25] MEDS: NOVOLOG SUB-Q SCH ×4 (09:34→21:49)
[2016-05-25] MEDS: ASPIRIN PO SCH (09:35)
[2016-05-25] MEDS: COZAAR PO SCH (09:35)
[2016-05-25] MEDS: CARDIZEM CD PO SCH ×2 (09:35→21:45)
[2016-05-25] MEDS: LEVAQUIN PO SCH (09:36)
[2016-05-25] MEDS: PEPCID PO SCH (09:36)
--- NOTE | 2016-05-25 12:12 | Progress Note ---
Assessment and Plan Assessment and plan: 80-year-old male admitted with shortness of breath for 3 days reported cough with productive sputum on admission. With no chills. Normally on 3 L of oxygen at home. Requiring BiPAP. * Acute on chronic hypoxic respiratory failure * COPD exacerbation/+-asthma * Diabetes mellitus uncontrolled * Elevated d-dimer * Hypertension * Tremor * Hyperlipidemia * Allergic rhinitis * Metabolic acidosis * Sinus tachycardia Plan * Patient currently on BiPAP will continue this point suspicion does not have good air movement. Continues on Solu-Medrol with Levaquin. * Pulmonary input appreciated * CT chest could not be obtained due to COPD and down VQ scan is ordered. I within the VQ scan report. * Continue systemic IV steroids and inhaled steroids and also nebulizer treatments * We'll continue to monitor blood glucose . * Prognosis guarded * SODIUM bicarbonate medication list monitor. * Tremor noted with movement patient denies history of Parkinson oral require further evaluation of the patient's versus if this is secondary to steroids I doubt the latter. * DVT and GI prophylaxis History Interval history: Patient seen and examined this morning in moderate respiratory distress Denies any chest pain, nausea, vomiting, diarrhea, but patient still has significant shortness of breath continues on BiPAP. No fever noted blood pressure controlled No adverse events reported to me by nursing staff Hospitalist Physical - Physical exam Narrative exam: VITAL SIGNS: Reviewed. GENERAL: The patient appeared well nourished and normally developed on BiPAP, moderate respiratory distress. Vital signs as documented. HEAD: No signs of head trauma. EYES: Pupils are equal. Extraocular motions intact. EARS: Hearing grossly intact. MOUTH: Oropharynx is normal. NECK: No adenopathy, no JVD. CHEST: Chest with diminished with expiratory wheezes breath sounds bilaterally , with increased work of breathing CARDIAC: Regular rate and rhythm. S1 and S2, without murmurs, gallops, or rubs. VASCULAR: No Edema. Peripheral pulses normal and equal in all extremities. ABDOMEN: Soft, without detectable tenderness. No sign of distention. No rebound or guarding, and no masses palpated. Bowel Sounds normal. MUSCULOSKELETAL: Good range of motion of all major joints. Extremities without clubbing, cyanosis or edema. NEUROLOGIC EXAM: Alert and oriented x 3. No focal sensory or strength deficits. Speech normal. Follows commands. PSYCHIATRIC: Mood normal. SKIN: No rash or lesions. - Constitutional Vitals: Temp Pulse Resp BP Pulse Ox 97.8 F 119 H 18 186/89 99 05/25/16 09:14 05/25/16 09:35 05/25/16 09:14 05/25/16 09:35 05/25/16 09:14 Results - Labs CBC & Chem 7: 05/24/16 08:08 05/24/16 08:08 Labs: Laboratory Last Values WBC 10.8 K/mm3 (4.5-11.0) 05/24/16 08:08 RBC 3.24 M/mm3 (3.65-5.03) L 05/24/16 08:08 Hgb 9.6 gm/dl (11.8-15.2) L 05/24/16 08:08 Hct 28.6 % (35.5-45.6) L 05/24/16 08:08 MCV 88 fl (84-94) 05/24/16 08:08 MCH 30 pg (28-32) 05/24/16 08:08 MCHC 34 % (32-34) 05/24/16 08:08 RDW 15.7 % (13.2-15.2) H 05/24/16 08:08 Plt Count 323 K/mm3 (140-440) 05/24/16 08:08 Lymph % (Auto) 13.0 % (13.4-35.0) L 05/22/16 14:25 [place] % (Auto) 13.1 % (0.0-7.3) H 05/22/16 14:25 Eos % (Auto) 1.1 % (0.0-4.3) 05/22/16 14:25 Baso % (Auto) 0.6 % (0.0-1.8) 05/22/16 14:25 Lymph # 0.8 K/mm3 (1.2-5.4) L 05/22/16 14:25 [place] # 0.8 K/mm3 (0.0-0.8) 05/22/16 14:25 Eos # 0.1 K/mm3 (0.0-0.4) 05/22/16 14:25 Baso # 0.0 K/mm3 (0.0-0.1) 05/22/16 14:25 Add Manual Diff Complete 05/24/16 08:08 Total Counted 100 05/24/16 08:08 Seg Neutrophils % [employer] 05/24/16 08:08 Seg Neuts % (Manual) 71.0 % (40.0-70.0) H 05/24/16 08:08 Band Neutrophils % 19.0 % 05/24/16 08:08 Lymphocytes % (Manual) 7.0 % (13.4-35.0) L 05/24/16 08:08 Reactive Lymphs % (Man) 0 % 05/24/16 08:08 Monocytes % (Manual) 3.0 % (0.0-7.3) 05/24/16 08:08 Eosinophils % (Manual) 0 % (0.0-4.3) 05/24/16 08:08 Basophils % (Manual) 0 % (0.0-1.8) 05/24/16 08:08 Metamyelocytes % 0 % 05/24/16 08:08 Myelocytes % 0 % 05/24/16 08:08 Promyelocytes % 0 % 05/24/16 08:08 Blast Cells % 0 % 05/24/16 08:08 Nucleated RBC % Not Reportable 05/24/16 08:08 Seg Neutrophils # 4.4 K/mm3 (1.8-7.7) 05/22/16 14:25 Seg Neutrophils # Man 7.7 K/mm3 (1.8-7.7) 05/24/16 08:08 Band Neutrophils # 2.1 K/mm3 05/24/16 08:08 Lymphocytes # (Manual) 0.8 K/mm3 (1.2-5.4) L 05/24/16 08:08 Abs React Lymphs (Man) 0.0 K/mm3 05/24/16 08:08 Monocytes # (Manual) 0.3 K/mm3 (0.0-0.8) 05/24/16 08:08 Eosinophils # (Manual) 0.0 K/mm3 (0.0-0.4) 05/24/16 08:08 Basophils # (Manual) 0.0 K/mm3 (0.0-0.1) 05/24/16 08:08 Metamyelocytes # 0.0 K/mm3 05/24/16 08:08 Myelocytes # 0.0 K/mm3 05/24/16 08:08 Promyelocytes # 0.0 K/mm3 05/24/16 08:08 Blast Cells # 0.0 K/mm3 05/24/16 08:08 WBC Morphology Not Reportable 05/24/16 08:08 Hypersegmented Neuts Not Reportable 05/24/16 08:08 Hyposegmented Neuts Not Reportable 05/24/16 08:08 Hypogranular Neuts Not Reportable 05/24/16 08:08 Smudge Cells Not Reportable 05/24/16 08:08 Toxic Granulation Not Reportable 05/24/16 08:08 Toxic Vacuolation Not Reportable 05/24/16 08:08 Dohle Bodies Not Reportable 05/24/16 08:08 Pelger-Huet Anomaly Not Reportable 05/24/16 08:08 Bari Rods Not Reportable 05/24/16 08:08 Platelet Estimate Not Reportable 05/24/16 08:08 Clumped Platelets Not Reportable 05/24/16 08:08 Plt Clumps, EDTA Not Reportable 05/24/16 08:08 Large Platelets Not Reportable 05/24/16 08:08 Giant Platelets Not Reportable 05/24/16 08:08 Platelet Satelliting Not Reportable 05/24/16 08:08 Plt Morphology Comment Not Reportable 05/24/16 08:08 RBC Morphology Not Reportable 05/24/16 08:08 Dimorphic RBCs Not Reportable 05/24/16 08:08 Polychromasia Not Reportable 05/24/16 08:08 Hypochromasia Not Reportable 05/24/16 08:08 Poikilocytosis Not Reportable 05/24/16 08:08 Anisocytosis 1+ 05/24/16 08:08 Microcytosis Not Reportable 05/24/16 08:08 Macrocytosis Not Reportable 05/24/16 08:08 Spherocytes Not Reportable 05/24/16 08:08 Pappenheimer Bodies Not Reportable 05/24/16 08:08 Sickle Cells Not Reportable 05/24/16 08:08 Target Cells Not Reportable 05/24/16 08:08 Tear Drop Cells Rare 05/24/16 08:08 Ovalocytes Not Reportable 05/24/16 08:08 Helmet Cells Not Reportable 05/24/16 08:08 [place] Bodies Not Reportable 05/24/16 08:08 [place] Rings Not Reportable 05/24/16 08:08 [place] Cells Not Reportable 05/24/16 08:08 Bite Cells Not Reportable 05/24/16 08:08 Crenated Cell Not Reportable 05/24/16 08:08 Elliptocytes Not Reportable 05/24/16 08:08 Acanthocytes (Spur) Not Reportable 05/24/16 08:08 Rouleaux Not Reportable 05/24/16 08:08 Hemoglobin C Crystals Not Reportable 05/24/16 08:08 Schistocytes Not Reportable 05/24/16 08:08 Malaria parasites Not Reportable 05/24/16 08:08 Andrea Bodies Not Reportable 05/24/16 08:08 Hem Pathologist Commnt No 05/24/16 08:08 PT 14.0 Sec. (12.2-14.9) 05/22/16 14:24 INR 1.09 (0.87-1.13) 05/22/16 14:24 D-Dimer 239.48 ng/mlDDU (0-234) H 05/23/16 14:16 VBG pH 7.403 (7.320-7.420) 05/22/16 14:24 Sodium 132 mmol/L (137-145) L 05/24/16 08:08 Potassium 4.3 mmol/L (3.6-5.0) 05/24/16 08:08 Chloride 93.9 mmol/L (98-107) L 05/24/16 08:08 Carbon Dioxide 18 mmol/L (22-30) L 05/24/16 08:08 Anion Gap 24 mmol/L 05/24/16 08:08 BUN 39 mg/dL (9-20) H 05/24/16 08:08 Creatinine 1.4 mg/dL (0.8-1.5) 05/24/16 08:08 Estimated GFR 49 ml/min 05/24/16 08:08 BUN/Creatinine Ratio 27.85 % 05/24/16 08:08 Glucose 166 mg/dL (75-100) H 05/24/16 08:08 POC Glucose 163 (70-105) H 05/24/16 22:18 Hemoglobin A1c 6.4 % (4-6) H 05/23/16 06:02 Lactic Acid 1.5 mmol/L (0.7-2.0) 05/22/16 17:24 Calcium 8.6 mg/dL (8.4-10.2) 05/24/16 08:08 Total Bilirubin 0.2 mg/dL (0.1-1.2) 05/22/16 14:24 AST 16 units/L (5-40) 05/22/16 14:24 ALT 12 units/L (7-56) 05/22/16 14:24 Alkaline Phosphatase 107 units/L (35-129) 05/22/16 14:24 Total Creatine Kinase 53 units/L (55-170) L 05/22/16 14:24 CK-MB (CK-2) 2.1 ng/mL (0.0-4.0) 05/22/16 14:24 CK-MB (CK-2) Rel Index 3.9 (0-4) 05/22/16 14:24 Troponin T 0.023 ng/mL (0.00-0.029) 05/22/16 14:24 NT-Pro-B Natriuret Pep 316.0 pg/mL (0-900) 05/22/16 14:24 Total Protein 6.8 g/dL (6.3-8.2) 05/22/16 14:24 Albumin 3.5 g/dL (3.9-5) L 05/22/16 14:24 Albumin/Globulin Ratio 1.1 % 05/22/16 14:24 Urine Color Yellow (Yellow) 05/22/16 22:30 Urine Turbidity Clear (Clear) 05/22/16 22:30 Urine pH 5.0 (5.0-7.0) 05/22/16 22:30 Ur Specific [place] 1.016 (1.003-1.030) 05/22/16 22:30 Urine Protein 30 mg/dl mg/dL (Negative) 05/22/16 22:30 Urine Glucose (UA) Neg mg/dL (Negative) 05/22/16 22:30 Urine Ketones Tr mg/dL (Negative) 05/22/16 22:30 Urine Blood Neg (Negative) 05/22/16 22:30 Urine Nitrite Neg (Negative) 05/22/16 22:30 Urine Bilirubin Neg (Negative) 05/22/16 22:30 Urine Urobilinogen < 2.0 mg/dL (<2.0) 05/22/16 22:30 Ur Leukocyte Esterase Neg (Negative) 05/22/16 22:30 Urine WBC (Auto) 3.0 /HPF (0.0-6.0) 05/22/16 22:30 Urine RBC (Auto) 1.0 /HPF (0.0-6.0) 05/22/16 22:30 U Epithel Cells (Auto) < 1.0 /HPF (0-13.0) 05/22/16 22:30 Hyaline Casts 1 /LPF 05/22/16 22:30 Urine Mucus Few /HPF 05/22/16 22:30
[2016-05-25] MEDS ORDERED: HEPARIN 10,000 UNITS/10 ML IV ONE (13:21)
[2016-05-25 14:13] LABS: Hematocrit 30.4 % (35.5-45.6)
[2016-05-25 14:21] LABS: INR 1.03 (0.87-1.13); Partial Thromboplastin Time 29.5 Sec. (24.2-36.6)
--- NOTE | 2016-05-25 14:56 | Progress Note ---
Assessment and Plan Patient resting on BIPAP. Tolerating Alright. No acute respiratory distress. - Patient Problems (1) Acute exacerbation of chronic obstructive pulmonary disease (COPD) Current Visit: Yes Status: Acute Plan to address problem: Albuterol/atrovent aerosol treatments q 6 hours. Continue I/V solumedral. (2) Acute on chronic respiratory failure with hypoxemia Current Visit: Yes Status: Acute Plan to address problem: Continue BIPAP Continue S/C Lovenox. Continue Pepcid. (3) Obesity Current Visit: Yes Status: Acute Plan to address problem: Consult nutrition for weight reduction diet. (4) Elevated d-dimer Current Visit: Yes Status: Acute Plan to address problem: V/Q scan Venous doppler studies of legs. Subjective Date of service: 05/25/16 Principal diagnosis: Acute on Chronic Hypoxemic Respiratory Failure Interval history: Patient resting on BIPAP. Tolerating Alright. No acute respiratory distress. Objective Vital Signs - 12hr 05/25/16 05/25/16 05/25/16 02:56 09:14 09:25 Temperature 97.8 F Pulse Rate Pulse Rate [ 90 115 H 120 H Anterior Bilateral Throughout] Pulse Rate [ 119 H Right Dorsalis Pedis] Respiratory 18 Rate Respiratory 20 20 20 Rate [Anterior Bilateral Throughout] Blood Pressure Blood Pressure 186/89 [Left Arm] O2 Sat by Pulse 100 Oximetry 05/25/16 09:35 Temperature Pulse Rate 119 H Pulse Rate [ Anterior Bilateral Throughout] Pulse Rate [ Right Dorsalis Pedis] Respiratory Rate Respiratory Rate [Anterior Bilateral Throughout] Blood Pressure 186/89 Blood Pressure [Left Arm] O2 Sat by Pulse Oximetry Constitutional: alert, appears uncomfortable Eyes: non-icteric ENT: oropharynx moist Neck: supple, no lymphadenopathy Effort: mildly labored Ascultation: Bilateral: diminished breath sounds, rhonchi Cardiovascular: regular rate and rhythm Gastrointestinal: normoactive bowel sounds, soft, non-tender, non-distended Integumentary: normal Extremities: no cyanosis, no edema, pink and warm, pulses normal Neurologic: normal mental status, non-focal exam, pupils equal and round, motor strength normal and Psychiatric: mood appropriate, affect normal CBC and BMP: 05/25/16 13:38 05/24/16 08:08 ABG, PT/INR, D-dimer: PT/INR, D-dimer PT 13.4 Sec. (12.2-14.9) 05/25/16 13:38 INR 1.03 (0.87-1.13) 05/25/16 13:38 D-Dimer 239.48 ng/mlDDU (0-234) H 05/23/16 14:16 Abnormal lab findings: Abnormal Labs 05/23/16 05/23/16 05/23/16 06:02 09:35 11:22 RBC Hgb Hct RDW Seg Neuts % (Manual) Lymphocytes % (Manual) Lymphocytes # (Manual) D-Dimer Sodium Chloride Carbon Dioxide BUN Glucose POC Glucose 174 H 232 H Hemoglobin A1c 6.4 H 05/23/16 05/23/16 05/23/16 14:16 16:07 22:23 RBC Hgb Hct RDW Seg Neuts % (Manual) Lymphocytes % (Manual) Lymphocytes # (Manual) D-Dimer 239.48 H Sodium Chloride Carbon Dioxide BUN Glucose POC Glucose 126 H 171 H Hemoglobin A1c 05/24/16 05/24/16 05/24/16 08:08 08:08 08:19 RBC 3.24 L Hgb 9.6 L Hct 28.6 L RDW 15.7 H Seg Neuts % (Manual) 71.0 H Lymphocytes % (Manual) 7.0 L Lymphocytes # (Manual) 0.8 L D-Dimer Sodium 132 L Chloride 93.9 L Carbon Dioxide 18 L BUN 39 H Glucose 166 H POC Glucose 173 H Hemoglobin A1c 05/24/16 05/24/16 05/24/16 11:55 17:15 22:18 RBC Hgb Hct RDW Seg Neuts % (Manual) Lymphocytes % (Manual) Lymphocytes # (Manual) D-Dimer Sodium Chloride Carbon Dioxide BUN Glucose POC Glucose 210 H 147 H 163 H Hemoglobin A1c 05/25/16 13:38 RBC Hgb 10.0 L Hct 30.4 L RDW Seg Neuts % (Manual) Lymphocytes % (Manual) Lymphocytes # (Manual) D-Dimer Sodium Chloride Carbon Dioxide BUN Glucose POC Glucose Hemoglobin A1c Chest x-ray: report reviewed (No acute cardiopulmonary process.), image reviewed
[2016-05-25] MEDS: HEPARIN/ 0.45% NACL-25,000 UNIT/500 ML 500 ML IV SCH (15:56)
[2016-05-25 16:41] LABS: ISTAT Base Excess -2; ISTAT HCO3 22.2; ISTAT PCO2 34.3 (35-45); ISTAT PH 7.418 (7.35-7.45); ISTAT PO2 114 (80-105); ISTAT SO2 99; ISTAT TCO2 23
[2016-05-25] MEDS: SINGULAIR PO SCH (19:38)
[2016-05-25] MEDS: ZOCOR PO SCH (21:45)
[2016-05-25] MEDS: LEVEMIR SUB-Q SCH (21:46)
[2016-05-25] MEDS: LOVENOX SUB-Q SCH (21:46)
[2016-05-26] MEDS: ATIVAN IV PRN (00:35)
[2016-05-26] MEDS: DUONEB 0.5 MG-3 MG/3 ML SOLN IH SCH ×4 (02:10→20:21)
[2016-05-26] MEDS: NOVOLOG SUB-Q SCH ×4 (04:21→22:19)
[2016-05-26] MEDS: SINGULAIR PO SCH ×2 (04:21→19:19)
[2016-05-26] MEDS: MAXZIDE-25 PO SCH (04:21)
[2016-05-26] MEDS: FLONASE NS SCH (04:22)
[2016-05-26] MEDS: PULMICORT IH SCH ×2 (07:26→20:21)
[2016-05-26] MEDS: ASPIRIN PO SCH (10:09)
[2016-05-26] MEDS: LEVAQUIN PO SCH (10:09)
[2016-05-26] MEDS: PEPCID PO SCH (10:09)
[2016-05-26] MEDS: COZAAR PO SCH (10:10)
[2016-05-26] MEDS: CARDIZEM CD PO SCH (10:11)
[2016-05-26] MEDS ORDERED: NACL 0.9% 1000 ML 1,000 ML ONE (12:21)
[2016-05-26] MEDS ORDERED: NACL 0.9% 500 ML 500 ML IV ONE ×2 (12:30→16:33)
[2016-05-26 12:58] LABS: ISTAT Base Excess -13; ISTAT HCO3 13.6; ISTAT PCO2 27.8 (35-45); ISTAT PH 7.298 (7.35-7.45); ISTAT PO2 132 (80-105); ISTAT SO2 99; ISTAT TCO2 14
[2016-05-26] MEDS ORDERED: LEVOPHED DRIP 4 MG/NS 250 ML 250 ML IV ONE (14:00)
[2016-05-26] MEDS: LEVOPHED DRIP 4 MG/NS 250 ML 250 ML IV SCH ×5 (14:00→23:07)
[2016-05-26 14:15] LABS: Hematocrit 23.2 % (35.5-45.6); Hemoglobin 7.4 gm/dl (11.8-15.2); Mean Corpuscular HGB Conc 32 % (32-34); Mean Corpuscular Hemoglobin 29 pg (28-32); Mean Corpuscular Volume 91 fl (84-94); Platelet Count 354 K/mm3 (140-440); Red Blood Count 2.56 M/mm3 (3.65-5.03); Red Cell Distribution Width 15.8 % (13.2-15.2); White Blood Count 19.7 K/mm3 (4.5-11.0)
--- NOTE | 2016-05-26 14:33 | Progress Note ---
Assessment and Plan - Patient Problems (1) Acute exacerbation of chronic obstructive pulmonary disease (COPD) Current Visit: Yes Status: Acute Plan to address problem: - continue supplemental oxygen to keep sats >/= 92% - continue empiric AB's and follow cultures - transferred to ICU - continue ALIN and LABA - continue systemic steroids slow taper - complete VTE w/up - repeat ABG - short leash to intubate (2) Acute on chronic respiratory failure with hypoxemia Current Visit: Yes Status: Acute Plan to address problem: - as above - if intubated begin ventilator bundles (3) Obesity Current Visit: Yes Status: Acute Plan to address problem: - weight loss - outpatient PSG (4) Sepsis syndrome Current Visit: Yes Status: Acute Plan to address problem: - get CRP and lactate - hold on broadening AB's - get labs and r/o significant bleeding occultly - aggressive volume resuscitation - central venous access - get Arterial and venous blood gases re: SvO2 (5) Discharge planning issues Current Visit: Yes Status: Acute Plan to address problem: - hopefully can turn around and transfer back to floor shortly but if getes intubated may be a difficult wean re: severe COPD baseline ...he is critically ill on life sustaining interventions including MVS and at high risk for further deterioration including ...33' CCT Subjective Date of service: 05/26/16 Principal diagnosis: Acute on Chronic Hypoxemic Respiratory Failure Interval history: Seen and examined at bedside; 24 hour events reviewed; nursing and respiratory care staff consulted; no adverse overnight events reported to me; however decompensation earlier today with increased work of brerathinng, hypotension and AMS; transfered to ICU; No emesis or overt aspiration reported Objective Vital Signs - 12hr 05/26/16 05/26/16 05/26/16 03:00 05:37 07:00 Temperature 97.4 F L Pulse Rate 116 H 110 H Pulse Rate [ Anterior Bilateral Middle Lobe] Pulse Rate [ 114 H From Monitor] Pulse Rate [ Left Radial] Pulse Rate [ Right Radial] Respiratory 22 27 H Rate Respiratory Rate [Anterior Bilateral Middle Lobe] Blood Pressure Blood Pressure 153/92 [Left Arm] Blood Pressure [Right Arm] O2 Sat by Pulse 97 99 Oximetry 05/26/16 05/26/16 05/26/16 07:26 07:27 07:43 Temperature 97.4 F L Pulse Rate Pulse Rate [ 110 H Anterior Bilateral Middle Lobe] Pulse Rate [ From Monitor] Pulse Rate [ Left Radial] Pulse Rate [ 106 H Right Radial] Respiratory 26 H Rate Respiratory 25 H Rate [Anterior Bilateral Middle Lobe] Blood Pressure Blood Pressure [Left Arm] Blood Pressure 131/83 [Right Arm] O2 Sat by Pulse 99 Oximetry 05/26/16 05/26/16 05/26/16 10:00 10:10 10:11 Temperature Pulse Rate 106 H 106 H Pulse Rate [ Anterior Bilateral Middle Lobe] Pulse Rate [ 106 H From Monitor] Pulse Rate [ 106 H Left Radial] Pulse Rate [ Right Radial] Respiratory 24 Rate Respiratory Rate [Anterior Bilateral Middle Lobe] Blood Pressure 131/83 133/81 Blood Pressure [Left Arm] Blood Pressure [Right Arm] O2 Sat by Pulse 100 Oximetry 05/26/16 05/26/16 11:12 12:00 Temperature 97.4 F L Pulse Rate 112 H Pulse Rate [ Anterior Bilateral Middle Lobe] Pulse Rate [ From Monitor] Pulse Rate [ 96 H Left Radial] Pulse Rate [ Right Radial] Respiratory 32 H Rate Respiratory Rate [Anterior Bilateral Middle Lobe] Blood Pressure Blood Pressure 66/45 [Left Arm] Blood Pressure [Right Arm] O2 Sat by Pulse Oximetry Constitutional: lethargic, appears uncomfortable Eyes: non-icteric ENT: oropharynx moist Neck: supple, no lymphadenopathy Effort: mildly labored Ascultation: Bilateral: diminished breath sounds, rales Cardiovascular: regular rate and rhythm Gastrointestinal: normoactive bowel sounds, soft, non-tender, non-distended Integumentary: normal Extremities: no cyanosis, no edema, pink and warm, pulses normal Neurologic: normal mental status, non-focal exam, pupils equal and round, motor strength normal and Psychiatric: mood appropriate (to assess), other CBC and BMP: 05/26/16 17:53 05/24/16 08:08 ABG, PT/INR, D-dimer: ABG POC ABG pH 7.298 (7.35-7.45) L 05/26/16 12:38 POC ABG pCO2 27.8 (35-45) L 05/26/16 12:38 POC ABG pO2 132 (80-105) H 05/26/16 12:38 POC ABG HCO3 13.6 05/26/16 12:38 POC ABG Total CO2 14 05/26/16 12:38 POC ABG O2 Sat 99 05/26/16 12:38 PT/INR, D-dimer PT 13.4 Sec. (12.2-14.9) 05/25/16 13:38 INR 1.03 (0.87-1.13) 05/25/16 13:38 D-Dimer 239.48 ng/mlDDU (0-234) H 05/23/16 14:16 Abnormal lab findings: Abnormal Labs 05/23/16 05/23/16 05/23/16 06:02 09:35 11:22 WBC RBC Hgb Hct RDW Seg Neuts % (Manual) Lymphocytes % (Manual) Lymphocytes # (Manual) D-Dimer Heparin Anti-Xa Level POC ABG pH POC ABG pCO2 POC ABG pO2 Sodium Chloride Carbon Dioxide BUN Glucose POC Glucose 174 H 232 H Hemoglobin A1c 6.4 H 05/23/16 05/23/16 05/23/16 14:16 16:07 22:23 WBC RBC Hgb Hct RDW Seg Neuts % (Manual) Lymphocytes % (Manual) Lymphocytes # (Manual) D-Dimer 239.48 H Heparin Anti-Xa Level POC ABG pH POC ABG pCO2 POC ABG pO2 Sodium Chloride Carbon Dioxide BUN Glucose POC Glucose 126 H 171 H Hemoglobin A1c 05/24/16 05/24/16 05/24/16 08:08 08:08 08:19 WBC RBC 3.24 L Hgb 9.6 L Hct 28.6 L RDW 15.7 H Seg Neuts % (Manual) 71.0 H Lymphocytes % (Manual) 7.0 L Lymphocytes # (Manual) 0.8 L D-Dimer Heparin Anti-Xa Level POC ABG pH POC ABG pCO2 POC ABG pO2 Sodium 132 L Chloride 93.9 L Carbon Dioxide 18 L BUN 39 H Glucose 166 H POC Glucose 173 H Hemoglobin A1c 05/24/16 05/24/16 05/24/16 11:55 17:15 22:18 WBC RBC Hgb Hct RDW Seg Neuts % (Manual) Lymphocytes % (Manual) Lymphocytes # (Manual) D-Dimer Heparin Anti-Xa Level POC ABG pH POC ABG pCO2 POC ABG pO2 Sodium Chloride Carbon Dioxide BUN Glucose POC Glucose 210 H 147 H 163 H Hemoglobin A1c 05/25/16 05/25/16 05/25/16 08:43 13:38 14:19 WBC RBC Hgb 10.0 L Hct 30.4 L RDW Seg Neuts % (Manual) Lymphocytes % (Manual) Lymphocytes # (Manual) D-Dimer Heparin Anti-Xa Level POC ABG pH POC ABG pCO2 POC ABG pO2 Sodium Chloride Carbon Dioxide BUN Glucose POC Glucose 177 H 180 H Hemoglobin A1c 05/25/16 05/25/16 05/25/16 16:16 16:25 21:32 WBC RBC Hgb Hct RDW Seg Neuts % (Manual) Lymphocytes % (Manual) Lymphocytes # (Manual) D-Dimer Heparin Anti-Xa Level POC ABG pH POC ABG pCO2 34.3 L POC ABG pO2 114 H Sodium Chloride Carbon Dioxide BUN Glucose POC Glucose 193 H 183 H Hemoglobin A1c 05/26/16 05/26/16 05/26/16 00:06 07:42 10:17 WBC RBC Hgb Hct RDW Seg Neuts % (Manual) Lymphocytes % (Manual) Lymphocytes # (Manual) D-Dimer Heparin Anti-Xa Level 1.23 H 0.98 H POC ABG pH POC ABG pCO2 POC ABG pO2 Sodium Chloride Carbon Dioxide BUN Glucose POC Glucose 206 H Hemoglobin A1c 05/26/16 05/26/16 05/26/16 11:57 12:38 13:52 WBC 19.7 H RBC 2.56 L Hgb 7.4 L Hct 23.2 L D RDW 15.8 H Seg Neuts % (Manual) Lymphocytes % (Manual) Lymphocytes # (Manual) D-Dimer Heparin Anti-Xa Level POC ABG pH 7.298 L POC ABG pCO2 27.8 L POC ABG pO2 132 H Sodium Chloride Carbon Dioxide BUN Glucose POC Glucose 338 H Hemoglobin A1c
[2016-05-26] MEDS ORDERED: VASELINE LIP THERAPY TP PRN (14:36)
--- NOTE | 2016-05-26 14:59 | XRay Report ---
PORTABLE CHEST INDICATION: Right PICC placement. COMPARISON: 05/22/2016 FINDINGS: Portable, frontal chest radiograph demonstrates new right upper extremity PICC tip about the cavoatrial junction. Normal cardiomediastinal silhouette with aortic atherosclerotic calcifications, somewhat prominent lung markings and biapical scarring/pleural thickening again noted. No pleural effusion or CHF. Stable bones, including possible right humeral neck deformity. CONCLUSION: Interval uncomplicated right upper extremity PICC placement, as described. Thank you for the opportunity to participate in this patient's care.
[2016-05-26] MEDS ORDERED: VERSED/NS 100MG/100ML 100 ML IV SCH (15:00)
[2016-05-26] MEDS ORDERED: NACL 0.9% 500 ML IV SCH (15:00)
[2016-05-26] MEDS ORDERED: INTROPIN DRIP 800 MG/D5W 250 ML 250 ML IV ONE (15:16)
[2016-05-26] MEDS ORDERED: VERSED IV ONE (15:30)
[2016-05-26] MEDS: HEPARIN/ 0.45% NACL-25,000 UNIT/500 ML 500 ML IV SCH (15:37)
[2016-05-26] MEDS: PITRESSin 20 UNIT in NACL 0.9% 100 ML IV SCH ×2 (15:38→22:14)
[2016-05-26] MEDS ORDERED: INTROPIN DRIP 800 MG/D5W 250 ML 250 ML IV SCH (16:00)
--- NOTE | 2016-05-26 16:35 | Progress Note ---
Assessment and Plan Assessment and plan: 80-year-old male admitted with shortness of breath for 3 days reported cough with productive sputum on admission. With no chills. Normally on 3 L of oxygen at home. Requiring BiPAP. * Acute blood loss anemia -suspect possible GI bleed. Patient started on heparin for elevated d-dimer. * Acute on chronic hypoxic respiratory failure * COPD exacerbation/+-asthma * Diabetes mellitus uncontrolled * Elevated d-dimer * Hypertension * Tremor * Hyperlipidemia * Allergic rhinitis * Metabolic acidosis * Sinus tachycardia Plan * Transfer patient to ICU discussed with tobacco curer will discontinue heparin drip. In light of decrease in hemoglobin. We'll consult GI. We'll just send stool for occult blood. We'll transfuse 2 units packed red blood cells. We'll start patient on Protonix drip. * Patient currently on BiPAP will continue this point suspicion does not have good air movement. Continues on Solu-Medrol with Levaquin. * Pulmonary input appreciated * CT chest could not be obtained due to COPD and down VQ scan is ordered. I within the VQ scan report. * Continue systemic IV steroids and inhaled steroids and also nebulizer treatments * We'll continue to monitor blood glucose . * Prognosis guarded * SODIUM bicarbonate medication list monitor. * Tremor noted with movement patient denies history of Parkinson oral require further evaluation of the patient's versus if this is secondary to steroids I doubt the latter. * DVT and GI prophylaxis The high probability of a clinically significant, sudden or life threatening deterioration of the [pulmonary, hematologic] system(s) required my full and direct attention, intervention and personal management. The aggregate critical care time was [45] minutes. This time is in addition to time spent performing reported procedures but includes the following: [x] Data Review and interpretation [x] Patient assessment and monitoring of vital signs [x] Documentation [x] Medication orders and management History Interval history: Patient seen and examined this morning was an increase in distress. Also was noted to have systolic hypotension with blood pressure in the 60s. No fever noted blood pressure controlled No adverse events reported to me by nursing staff Hospitalist Physical - Physical exam Narrative exam: VITAL SIGNS: Reviewed. GENERAL: The patient appeared well nourished and normally developed on BiPAP, moderate respiratory distress. Vital signs as documented. HEAD: No signs of head trauma. EYES: Pupils are equal. Extraocular motions intact. EARS: Hearing grossly intact. MOUTH: Oropharynx is normal. NECK: No adenopathy, no JVD. CHEST: Chest with diminished with expiratory wheezes breath sounds bilaterally , with increased work of breathing CARDIAC: Regular rate and rhythm. S1 and S2, without murmurs, gallops, or rubs. VASCULAR: No Edema. Peripheral pulses normal and equal in all extremities. ABDOMEN: Soft, without detectable tenderness. No sign of distention. No rebound or guarding, and no masses palpated. Bowel Sounds normal. MUSCULOSKELETAL: Good range of motion of all major joints. Extremities without clubbing, cyanosis or edema. NEUROLOGIC EXAM: Very lethargic. Speech slow and not following commands PSYCHIATRIC: Mood normal. SKIN: No rash or lesions. - Constitutional Vitals: Temp Pulse Resp BP Pulse Ox 97.4 F L 97 H 32 H 86/32 99 05/26/16 12:00 05/26/16 15:51 05/26/16 12:00 05/26/16 15:51 05/26/16 15:51 Results - Labs CBC & Chem 7: 05/26/16 13:52 05/24/16 08:08 Labs: Laboratory Last Values WBC 19.7 K/mm3 (4.5-11.0) H 05/26/16 13:52 RBC 2.56 M/mm3 (3.65-5.03) L 05/26/16 13:52 Hgb 7.4 gm/dl (11.8-15.2) L 05/26/16 13:52 Hct 23.2 % (35.5-45.6) L D 05/26/16 13:52 MCV 91 fl (84-94) D 05/26/16 13:52 MCH 29 pg (28-32) 05/26/16 13:52 MCHC 32 % (32-34) 05/26/16 13:52 RDW 15.8 % (13.2-15.2) H 05/26/16 13:52 Plt Count 354 K/mm3 (140-440) 05/26/16 13:52 Lymph % (Auto) 13.0 % (13.4-35.0) L 05/22/16 14:25 [place] % (Auto) 13.1 % (0.0-7.3) H 05/22/16 14:25 Eos % (Auto) 1.1 % (0.0-4.3) 05/22/16 14:25 Baso % (Auto) 0.6 % (0.0-1.8) 05/22/16 14:25 Lymph # 0.8 K/mm3 (1.2-5.4) L 05/22/16 14:25 [place] # 0.8 K/mm3 (0.0-0.8) 05/22/16 14:25 Eos # 0.1 K/mm3 (0.0-0.4) 05/22/16 14:25 Baso # 0.0 K/mm3 (0.0-0.1) 05/22/16 14:25 Add Manual Diff Complete 05/24/16 08:08 Total Counted 100 05/24/16 08:08 Seg Neutrophils % Floral Arranger 05/24/16 08:08 Seg Neuts % (Manual) 71.0 % (40.0-70.0) H 05/24/16 08:08 Band Neutrophils % 19.0 % 05/24/16 08:08 Lymphocytes % (Manual) 7.0 % (13.4-35.0) L 05/24/16 08:08 Reactive Lymphs % (Man) 0 % 05/24/16 08:08 Monocytes % (Manual) 3.0 % (0.0-7.3) 05/24/16 08:08 Eosinophils % (Manual) 0 % (0.0-4.3) 05/24/16 08:08 Basophils % (Manual) 0 % (0.0-1.8) 05/24/16 08:08 Metamyelocytes % 0 % 05/24/16 08:08 Myelocytes % 0 % 05/24/16 08:08 Promyelocytes % 0 % 05/24/16 08:08 Blast Cells % 0 % 05/24/16 08:08 Nucleated RBC % Not Reportable 05/24/16 08:08 Seg Neutrophils # 4.4 K/mm3 (1.8-7.7) 05/22/16 14:25 Seg Neutrophils # Man 7.7 K/mm3 (1.8-7.7) 05/24/16 08:08 Band Neutrophils # 2.1 K/mm3 05/24/16 08:08 Lymphocytes # (Manual) 0.8 K/mm3 (1.2-5.4) L 05/24/16 08:08 Abs React Lymphs (Man) 0.0 K/mm3 05/24/16 08:08 Monocytes # (Manual) 0.3 K/mm3 (0.0-0.8) 05/24/16 08:08 Eosinophils # (Manual) 0.0 K/mm3 (0.0-0.4) 05/24/16 08:08 Basophils # (Manual) 0.0 K/mm3 (0.0-0.1) 05/24/16 08:08 Metamyelocytes # 0.0 K/mm3 05/24/16 08:08 Myelocytes # 0.0 K/mm3 05/24/16 08:08 Promyelocytes # 0.0 K/mm3 05/24/16 08:08 Blast Cells # 0.0 K/mm3 05/24/16 08:08 WBC Morphology Not Reportable 05/24/16 08:08 Hypersegmented Neuts Not Reportable 05/24/16 08:08 Hyposegmented Neuts Not Reportable 05/24/16 08:08 Hypogranular Neuts Not Reportable 05/24/16 08:08 Smudge Cells Not Reportable 05/24/16 08:08 Toxic Granulation Not Reportable 05/24/16 08:08 Toxic Vacuolation Not Reportable 05/24/16 08:08 Dohle Bodies Not Reportable 05/24/16 08:08 Pelger-Huet Anomaly Not Reportable 05/24/16 08:08 Bari Rods Not Reportable 05/24/16 08:08 Platelet Estimate Not Reportable 05/24/16 08:08 Clumped Platelets Not Reportable 05/24/16 08:08 Plt Clumps, EDTA Not Reportable 05/24/16 08:08 Large Platelets Not Reportable 05/24/16 08:08 Giant Platelets Not Reportable 05/24/16 08:08 Platelet Satelliting Not Reportable 05/24/16 08:08 Plt Morphology Comment Not Reportable 05/24/16 08:08 RBC Morphology Not Reportable 05/24/16 08:08 Dimorphic RBCs Not Reportable 05/24/16 08:08 Polychromasia Not Reportable 05/24/16 08:08 Hypochromasia Not Reportable 05/24/16 08:08 Poikilocytosis Not Reportable 05/24/16 08:08 Anisocytosis 1+ 05/24/16 08:08 Microcytosis Not Reportable 05/24/16 08:08 Macrocytosis Not Reportable 05/24/16 08:08 Spherocytes Not Reportable 05/24/16 08:08 Pappenheimer Bodies Not Reportable 05/24/16 08:08 Sickle Cells Not Reportable 05/24/16 08:08 Target Cells Not Reportable 05/24/16 08:08 Tear Drop Cells Rare 05/24/16 08:08 Ovalocytes Not Reportable 05/24/16 08:08 Helmet Cells Not Reportable 05/24/16 08:08 [place] Bodies Not Reportable 05/24/16 08:08 [place] Rings Not Reportable 05/24/16 08:08 [place] Cells Not Reportable 05/24/16 08:08 Bite Cells Not Reportable 05/24/16 08:08 Crenated Cell Not Reportable 05/24/16 08:08 Elliptocytes Not Reportable 05/24/16 08:08 Acanthocytes (Spur) Not Reportable 05/24/16 08:08 Rouleaux Not Reportable 05/24/16 08:08 Hemoglobin C Crystals Not Reportable 05/24/16 08:08 Schistocytes Not Reportable 05/24/16 08:08 Malaria parasites Not Reportable 05/24/16 08:08 Andrea Bodies Not Reportable 05/24/16 08:08 Hem Pathologist Commnt No 05/24/16 08:08 PT 13.4 Sec. (12.2-14.9) 05/25/16 13:38 INR 1.03 (0.87-1.13) 05/25/16 13:38 APTT 29.5 Sec. (24.2-36.6) 05/25/16 13:38 D-Dimer 239.48 ng/mlDDU (0-234) H 05/23/16 14:16 Heparin Anti-Xa Level 1.35 U.I./ml (0.3-0.7) H 05/26/16 15:47 POC ABG pH 7.298 (7.35-7.45) L 05/26/16 12:38 POC ABG pCO2 27.8 (35-45) L 05/26/16 12:38 POC ABG pO2 132 (80-105) H 05/26/16 12:38 POC ABG HCO3 13.6 05/26/16 12:38 POC ABG Total CO2 14 05/26/16 12:38 POC ABG O2 Sat 99 05/26/16 12:38 POC ABG Base Excess -13 05/26/16 12:38 VBG pH 7.403 (7.320-7.420) 05/22/16 14:24 FiO2 30 % 05/26/16 12:38 Sodium 132 mmol/L (137-145) L 05/24/16 08:08 Potassium 4.3 mmol/L (3.6-5.0) 05/24/16 08:08 Chloride 93.9 mmol/L (98-107) L 05/24/16 08:08 Carbon Dioxide 18 mmol/L (22-30) L 05/24/16 08:08 Anion Gap 24 mmol/L 05/24/16 08:08 BUN 39 mg/dL (9-20) H 05/24/16 08:08 Creatinine 1.4 mg/dL (0.8-1.5) 05/24/16 08:08 Estimated GFR 49 ml/min 05/24/16 08:08 BUN/Creatinine Ratio 27.85 % 05/24/16 08:08 Glucose 166 mg/dL (75-100) H 05/24/16 08:08 POC Glucose 338 (70-105) H 05/26/16 11:57 Hemoglobin A1c 6.4 % (4-6) H 05/23/16 06:02 Lactic Acid 1.5 mmol/L (0.7-2.0) 05/22/16 17:24 Calcium 8.6 mg/dL (8.4-10.2) 05/24/16 08:08 Total Bilirubin 0.2 mg/dL (0.1-1.2) 05/22/16 14:24 AST 16 units/L (5-40) 05/22/16 14:24 ALT 12 units/L (7-56) 05/22/16 14:24 Alkaline Phosphatase 107 units/L (35-129) 05/22/16 14:24 Total Creatine Kinase 53 units/L (55-170) L 05/22/16 14:24 CK-MB (CK-2) 2.1 ng/mL (0.0-4.0) 05/22/16 14:24 CK-MB (CK-2) Rel Index 3.9 (0-4) 05/22/16 14:24 Troponin T 0.023 ng/mL (0.00-0.029) 05/22/16 14:24 C-Reactive Protein 0.70 mg/dL (0.00-1.30) 05/26/16 15:47 NT-Pro-B Natriuret Pep 316.0 pg/mL (0-900) 05/22/16 14:24 Total Protein 6.8 g/dL (6.3-8.2) 05/22/16 14:24 Albumin 3.5 g/dL (3.9-5) L 05/22/16 14:24 Albumin/Globulin Ratio 1.1 % 05/22/16 14:24 Urine Color Yellow (Yellow) 05/22/16 22:30 Urine Turbidity Clear (Clear) 05/22/16 22:30 Urine pH 5.0 (5.0-7.0) 05/22/16 22:30 Ur Specific [place] 1.016 (1.003-1.030) 05/22/16 22:30 Urine Protein 30 mg/dl mg/dL (Negative) 05/22/16 22:30 Urine Glucose (UA) Neg mg/dL (Negative) 05/22/16 22:30 Urine Ketones Tr mg/dL (Negative) 05/22/16 22:30 Urine Blood Neg (Negative) 05/22/16 22:30 Urine Nitrite Neg (Negative) 05/22/16 22:30 Urine Bilirubin Neg (Negative) 05/22/16 22:30 Urine Urobilinogen < 2.0 mg/dL (<2.0) 05/22/16 22:30 Ur Leukocyte Esterase Neg (Negative) 05/22/16 22:30 Urine WBC (Auto) 3.0 /HPF (0.0-6.0) 05/22/16 22:30 Urine RBC (Auto) 1.0 /HPF (0.0-6.0) 05/22/16 22:30 U Epithel Cells (Auto) < 1.0 /HPF (0-13.0) 05/22/16 22:30 Hyaline Casts 1 /LPF 05/22/16 22:30 Urine Mucus Few /HPF 05/22/16 22:30 ABG reviewed in detail
[2016-05-26] MEDS ORDERED: BUMINATE-5 IV ONE (16:42)
[2016-05-26] MEDS ORDERED: NEO-SYNEPHRINE 100 MG in NACL 0.9% 90 ML IV SCH (16:45)
--- NOTE | 2016-05-26 17:11 | Consultation ---
History of Present Illness - Reason for Consult Consult date: 05/26/16 Anemia Medications and Allergies Allergies Allergy/AdvReac Type Severity Reaction Status Date / Time No Known Allergies Allergy Unverified 05/22/16 14:00 Home Medications Medication Instructions Recorded Confirmed Last Taken Type Albuterol Sulfate [Ventolin HFA] 2 puff IH Q4H PRN 05/22/16 05/22/16 05/21/16 History Alendronate Sodium [Fosamax] 70 mg PO QWEEK 05/22/16 05/22/16 05/21/16 History Aspirin [Aspirin TAB] 325 mg PO QDAY 05/22/16 05/22/16 05/21/16 History Diltiazem HCl [Diltiazem ER] 120 mg PO BID 05/22/16 05/22/16 05/21/16 History Ergocalciferol [Vitamin D2] 1 cap PO QWEEK 05/22/16 05/22/16 05/21/16 History Fluticasone [Flonase] 2 spray NS QDAY 05/22/16 05/22/16 05/21/16 History Fluticasone/Salmeterol [Advair 1 puff IH BID 05/22/16 05/22/16 05/21/16 History Diskus 500-50 mcg] Ipratropium/Albuterol Sulfate 1 ampul IH Q6HR PRN 05/22/16 05/22/16 05/21/16 History [Duoneb 0.5 mg-3 mg/3 ml Soln] Ketoconazole 2% [Nizoral] 1 applicatio TP QDAY 05/22/16 05/22/16 05/21/16 History Loratadine [Claritin] 10 mg PO DAILY 05/22/16 05/22/16 05/21/16 History Losartan [Cozaar] 50 mg PO QDAY 05/22/16 05/22/16 05/21/16 History Meclizine HCl [Meclizine CHEW] 25 mg PO QDAY PRN 05/22/16 05/22/16 05/21/16 History Montelukast [Singulair] 10 mg PO QPM 05/22/16 05/22/16 05/21/16 History Pravastatin Sodium [Pravastatin] 40 mg PO QHS 05/22/16 05/22/1605/21/16 History Triamter/Hctz 37.5-25 mg 1 tab PO QDAY 05/22/16 05/22/16 05/21/16 History [Maxzide-25] metFORMIN [Glucophage] 500 mg PO BID 05/22/16 05/22/16 05/21/16 History Active Meds: Active Medications Acetaminophen (Tylenol) 650 mg PO Q4H PRN PRN Reason: Pain MILD(1-3)/Fever >100.5/PÉREZ Albuterol (Proventil) 2.5 mg IH Q4HRT PRN PRN Reason: Shortness Of Breath Albuterol/Ipratropium (Duoneb 0.5 Mg-3 Mg/3 Ml Soln) 1 ampul IH Q6HRT [facility] Last Admin: 05/26/16 07:26 Dose: 1 ampul Bisacodyl (Dulcolax) 10 mg MS QDAY PRN PRN Reason: Constipation unrelieved by MOM Budesonide (Pulmicort) 0.5 mg IH Q12HRT [facility] Last Admin: 05/26/16 07:26 Dose: 0.5 mg Dextrose (D50w (25gm)) 50 ml IV PRN PRN PRN Reason: Hypoglycemia Ergocalciferol (Vitamin D2) 50,000 unit PO Sa [facility] Last Admin: 05/23/16 10:47 Dose: 50,000 unit Famotidine (Pepcid) 20 mg PO DAILY [facility] Last Admin: 05/26/16 10:09 Dose: 20 mg Fluticasone Propionate (Flonase) 100 mcg NS QDAY [facility] Last Admin: 05/26/16 04:22 Dose: Not Given Hydromorphone HCl (Dilaudid) 0.5 mg IV Q3H PRN PRN Reason: Pain , Severe (7-10) Hydrophilic Ointment (Vaseline Lip Therapy) 1 applic TP Q2HR PRN PRN Reason: Dry Lips Fentanyl Citrate (Fentanyl Drip Premix) 100 mls @ 4.1 mls/hr IV TITR ARLYN; 1 MCG /KG/HR PRN Reason: Protocol Midazolam HCl (Versed/Ns 100mg/100ml) 100 mls @ 1 mls/hr IV TITR ARLYN; 1 MG/HR PRN Reason: Protocol Norepinephrine (Levophed Drip 4 Mg/Ns 250 Ml) 250 mls @ 7.5 mls/hr IV TITR ARLYN ; 2 MCG/MIN PRN Reason: Protocol Last Titration: 05/26/16 15:30 Dose: 30 mcg/min Dopamine HCl/Dextrose (Intropin Drip 800 Mg/D5w 250 Ml) 250 mls @ 3.075 mls/hr IV TITR ARLYN; 2 MCG/KG/MIN PRN Reason: Protocol Last Admin: 05/26/16 15:30 Dose: 7.685 mls/hr Vasopressin 20 unit/ Sodium (Chloride) 101 mls @ 12.12 mls/hr IV TITR ARLYN; 0.04 UNITS/MIN PRN Reason: Protocol Last Admin: 05/26/16 15:38 Dose: 12.12 mls/hr Pantoprazole Sodium 80 mg/ (Sodium Chloride) 100 mls @ 10 mls/hr IV Q10H ARLYN PRN Reason: 8 MG/HR Phenylephrine HCl 100 mg/ (Sodium Chloride) 100 mls @ 3 mls/hr IV TITR ARLYN; 50 MCG/MIN PRN Reason: Protocol Insulin Aspart (Novolog) 0 units SUB-Q ACHS [facility] PRN Reason: Protocol Last Admin: 05/26/16 10:07 Dose: 3 units Insulin Detemir (Levemir) 10 units SUB-Q QHS [facility] Last Admin: 05/25/16 21:46 Dose: 10 units Levofloxacin (Levaquin) 750 mg PO Q24HR [facility] Last Admin: 05/26/16 10:09 Dose: 750 mg Magnesium Hydroxide (Milk Of Magnesia) 30 ml PO Q4H PRN PRN Reason: Constipation Methylprednisolone Sodium Succinate (Solu-Medrol) 60 mg IV Q8HR [facility] Last Admin: 05/26/16 15:10 Dose: 60 mg Montelukast Sodium (Singulair) 10 mg PO QPM [facility] Last Admin: 05/26/16 04:21 Dose: Not Given Multi-Ingred Cream/Lotion/Oil/Oint (Artificial Tears Ophth Oint) 1 applic OU Q4HR PRN PRN Reason: Dry Eye(s) Ondansetron HCl (Zofran) 4 mg IV Q8H PRN PRN Reason: N/V unrelieved by Reglan Oxycodone/Acetaminophen (Percocet 5/325) 1 tab PO Q6H PRN PRN Reason: Pain, Moderate (4-6) Simvastatin (Zocor) 20 mg PO QHS [facility] Last Admin: 05/25/16 21:45 Dose: 20 mg Sodium Chloride (Nacl 0.9% 500 Ml) 1 ml IV DIRECT ARLYN Exam - Constitutional Vitals: Temp Pulse Resp BP Pulse Ox 97.4 F L 97 H 32 H 86/32 99 05/26/16 12:00 05/26/16 15:51 05/26/16 12:00 05/26/16 15:51 05/26/16 15:51 Results - Labs CBC & Chem 7: 05/26/16 13:52 05/24/16 08:08 Labs: Abnormal lab results 05/25/16 05/25/16 05/25/16 Range/Units 08:43 14:19 16:25 WBC (4.5-11.0) K/mm3 RBC (3.65-5.03) M/mm3 Hgb (11.8-15.2) gm/dl Hct (35.5-45.6) % RDW (13.2-15.2) % Heparin Anti-Xa Level (0.3-0.7) U.I./ml POC ABG pH (7.35-7.45) POC ABG pCO2 (35-45) POC ABG pO2 (80-105) POC Glucose 177 H 180 H 193 H (70-105) Lactic Acid (0.7-2.0) mmol/L 05/25/16 05/26/16 05/26/16 Range/Units 21:32 00:06 07:42 WBC (4.5-11.0) K/mm3 RBC (3.65-5.03) M/mm3 Hgb (11.8-15.2) gm/dl Hct (35.5-45.6) % RDW (13.2-15.2) % Heparin Anti-Xa Level 1.23 H (0.3-0.7) U.I./ml POC ABG pH (7.35-7.45) POC ABG pCO2 (35-45) POC ABG pO2 (80-105) POC Glucose 183 H 206 H (70-105) Lactic Acid (0.7-2.0) mmol/L 05/26/16 05/26/16 05/26/16 Range/Units 10:17 11:57 12:38 WBC (4.5-11.0) K/mm3 RBC (3.65-5.03) M/mm3 Hgb (11.8-15.2) gm/dl Hct (35.5-45.6) % RDW (13.2-15.2) % Heparin Anti-Xa Level 0.98 H (0.3-0.7) U.I./ml POC ABG pH 7.298 L (7.35-7.45) POC ABG pCO2 27.8 L (35-45) POC ABG pO2 132 H (80-105) POC Glucose 338 H (70-105) Lactic Acid (0.7-2.0) mmol/L 05/26/16 05/26/16 05/26/16 Range/Units 13:52 15:47 15:47 WBC 19.7 H (4.5-11.0) K/mm3 RBC 2.56 L (3.65-5.03) M/mm3 Hgb 7.4 L (11.8-15.2) gm/dl Hct 23.2 L D (35.5-45.6) % RDW 15.8 H (13.2-15.2) % Heparin Anti-Xa Level 1.35 H (0.3-0.7) U.I./ml POC ABG pH (7.35-7.45) POC ABG pCO2 (35-45) POC ABG pO2 (80-105) POC Glucose (70-105) Lactic Acid 9.0 H* (0.7-2.0) mmol/L Assessment and Plan See Dictated Consult note. Pt with acute drop in H/H, and hypotension, who was admitted with COPD exacerbation and was on a heparin drip. Pt was on PUD prophylaxis with Pepcid. Currently intubated and unresponsive to verbal stimuli. Dobhoff aspirate - greenish debris, small amount. No raoul blood. Abd - benign Rectal - no masses, brown stool. No aroul blood. Imp - NO evidence of acute GI bleed Rec - Transfuse and monitor H/H - agree with empiric PPI, possibly bid - consider CT to exclude retroperitoneal hematoma Discussed with Dr. Couch.
--- NOTE | 2016-05-26 17:18 | Echocardiography Report ---
Transthoracic Echocardiogram Indication: HYPOTENSIVE BP: 66/45 HR: 96 Conclusions *This is a technically poor quality study due to limited echocardiographic windows. *Although the left ventricle is not adequately visualized, the left ventricular cavity appears normal in size with probably normal global systolic function. *There is grade 1 left ventricular diastolic dysfunction (impaired relaxation). *The right ventricle is not well visualized. *If further information about cardiac structure and function is required, RADHA may be helpful. Findings Procedure Info: The study quality is technically difficult. The study is technically limited due to poor acoustic windows. The study was technically limited due to the patient's inability to lay in the left lateral decubitus position. Left Ventricle: The left ventricle is not well visualized. The left ventricular chamber size is normal. Global left ventricular systolic function is normal. Abnormal left ventricular diastolic filling is observed, consistent with impaired relaxation. Left Atrium: The left atrium is not well visualized. Right Ventricle: The right ventricle is not well visualized. Right Atrium: The right atrium is not well visualized. Aortic Valve: The aortic valve is not well visualized. Mitral Valve: The mitral valve is not well visualized. There is no evidence of mitral regurgitation. Tricuspid Valve: The tricuspid valve is not well visualized. There is no evidence of tricuspid valve regurgitation. There is no tricuspid stenosis. Pulmonic Valve: The pulmonic valve is not well visualized. There is no pulmonic stenosis. Pericardium: There is no pericardial effusion. No pleural effusion is present. Aorta: The aortic root is not well visualized. Pulmonary Artery: The main pulmonary artery is not well visualized. Venous: The inferior vena cava appears normal in size. Measurements Diastolic/Systolic Function Name Value Normal Range MV E-wave Vmax 0.46 m/sec - MV deceleration time 398 msec - MV A-wave Vmax 0.86 m/sec - MV E:A ratio 0.5 ratio - Aortic Valve Name Value Normal Range AV VTI 14.3 cm - AV mean gradient 3 mmHg - LVOT diameter 2.1 cm - LVOT VTI 21.2 cm - LVOT mean gradient 4 mmHg - SV LVOT 73 ml - MARIANO (continuity VTI) 5.13 cm2 - Mitral Valve Name Value Normal Range MV Vmax 1.01 m/sec - MV VTI 28.1 cm - MV peak gradient 4 mmHg - MV mean gradient 1 mmHg - MVA (continuity VTI) 2.61 cm2 - Pulmonic Valve/Qp:Qs Name Value Normal Range PV Vmax 1.25 m/sec - PV peak gradient 6 mmHg - GA end-diastolic Vmax 1.27 m/sec - PV acceleration time 113 msec -
[2016-05-26] MEDS ORDERED: SODIUM BICARBONATE IV ONE ×2 (17:42→18:00)
[2016-05-26 18:07] LABS: ISTAT Base Excess -17; ISTAT HCO3 13.4; ISTAT PCO2 47.3 (35-45); ISTAT PH 7.061 (7.35-7.45); ISTAT PO2 35 (80-105); ISTAT SO2 45; ISTAT TCO2 15
[2016-05-26 18:07] LABS: ISTAT Base Excess -17; ISTAT HCO3 12.8; ISTAT PCO2 40.5 (35-45); ISTAT PH 7.108 (7.35-7.45); ISTAT PO2 287 (80-105); ISTAT SO2 100; ISTAT TCO2 14
[2016-05-26] MEDS: PROTONIX 80 MG in NACL 0.9% 100 ML IV SCH (18:13)
[2016-05-26 18:21] LABS: Hematocrit 22.3 % (35.5-45.6); Hemoglobin 6.7 gm/dl (11.8-15.2)
[2016-05-26] MEDS: SODIUM BICARBONATE 150 MEQ in D5W 1,000 ML IV SCH (19:39)
[2016-05-26] MEDS: DILAUDID IV PRN (19:58)
--- NOTE | 2016-05-26 21:16 | Event Note ---
Date: 05/26/16 seen and re-examined on levophed at 30 mics/min, vasopressin at 0.04units/min and dopamine at 15 mics /kg/min but now with acceptable MAP's - ABG revealed severe acidosis and bicarbonate supplementation ongoing - acute anemia (Likely ABLA) noted and receiving PRBC's which will also help blood pressure - stopped Heparin - responding appropriately - trend lactate
[2016-05-26] MEDS: LEVEMIR SUB-Q SCH (22:26)
[2016-05-26] MEDS: ZOCOR PO SCH (22:57)
[2016-05-26] MEDS ORDERED: SODIUM BICARBONATE IV STA (23:10)
[2016-05-26 23:19] LABS: ISTAT Base Excess -13; ISTAT HCO3 15.4; ISTAT PCO2 39.9 (35-45); ISTAT PH 7.195 (7.35-7.45); ISTAT PO2 129 (80-105); ISTAT SO2 98; ISTAT TCO2 17
[2016-05-27 00:31] LABS: ISTAT Base Excess -10; ISTAT HCO3 17.2; ISTAT PCO2 37.2 (35-45); ISTAT PH 7.273 (7.35-7.45); ISTAT PO2 80 (80-105); ISTAT SO2 94; ISTAT TCO2 18
[2016-05-27] MEDS: PITRESSin 20 UNIT in NACL 0.9% 100 ML IV SCH ×2 (01:50→06:45)
[2016-05-27] MEDS: LEVOPHED DRIP 4 MG/NS 250 ML 250 ML IV SCH ×6 (01:55→21:45)
--- NOTE | 2016-05-27 02:15 | Consultation ---
REASON FOR CONSULTATION: Anemia. REFERRING PHYSICIAN: David Couch MD HISTORY OF PRESENT ILLNESS: The patient is an 80-year-old man who presented to the Emergency Room on 05/22/2016 and was admitted on 05/23/2016 with COPD exacerbation and shortness of breath. This has been going on for 3 days prior to admission. He was normally on 3 liters of home O2. In the Emergency Room, he was placed on BiPAP and admitted to telemetry. Today, the patient was noted to decompensate with increased work of breathing, hypotension, and altered mental status. He was therefore transferred to the ICU and intubated. He had been on IV heparin drip for elevated D-dimer studies and workup for PE was ongoing. Today, his hemoglobin was noted to drop from 10 to 7 and because of that and hypotension, the patient was moved to the ICU, the heparin was stopped, and GI consultation was obtained. Of note, the patient was on GI prophylaxis with Pepcid, which was started on the day of admission. PAST HISTORY: Obtained from the chart as the patient is currently intubated and not responsive to verbal stimuli. He has a history of; 1. Hypertension. 2. Diabetes. 3. COPD-- on home O2 at 3 liters. 4. Hyperlipidemia. 5. Asthma. 6. No known surgery. ALLERGIES: He has no known drug allergies. HOME MEDICATIONS: Consist of vitamin D, Maxzide, Singulair, Ventolin, Glucophage, pravastatin, meclizine, Cozaar, Claritin, DuoNeb inhalers, Flonase, diltiazem, 325 mg aspirin, Fosamax, and Advair. FAMILY HISTORY: Unobtainable at the present time due to the patient being intubated. REVIEW OF SYSTEMS: Unobtainable at the present time due to the patient being intubated. PHYSICAL EXAMINATION: GENERAL: This is an obese elderly white male lying in bed, intubated, and on norepinephrine drip. VITAL SIGNS: He is afebrile with a heart rate of 88 and a blood pressure of 75/57. HEENT: He is anicteric. Pupils are round and reactive. Oropharynx shows ET tube in place with a Dobbhoff in place in the nose. LUNGS: Clear bilaterally anteriorly with decreased breath sounds. CARDIOVASCULAR: Regular with no extra heart sounds. ABDOMEN: Obese but soft, good bowel sounds and no organomegaly or tenderness to deep palpation. RECTAL: Revealed no masses and brownish yellow stool with no raoul blood noted. EXTREMITIES: Reveal no edema. LABORATORY DATA: His white count is 19.7, hemoglobin 7.4, hematocrit , MCV of 91, platelet count of 354,000. On admission, his hemoglobin was 9.5 and yesterday was 10.0. Blood gas today showed pH of 7.3, pCO2 of 28 and pO2 of 132. His BMP on 05/24/2016 showed sodium 132, potassium 4.3, chloride 18, bicarbonate 94, BUN ____, creatinine 1.4, glucose 166. On admission, his AST was 16, ALT 12, alkaline phosphatase 107, total bilirubin of 0.2 and albumin of 3.5. IMPRESSION: Anemia -- the patient has had an acute drop in H and H. Etiology is unclear, but worrisome for possible acute blood loss. The patient was on a heparin drip, which has been discontinued. His Dobbhoff was aspirated and had greenish liquid with some debris and no raoul blood. Based on this and the negative rectal exam, there is no evidence of severe acute GI bleed. However, his stool output should be monitored. Other possibilities to consider are a retroperitoneal bleed. Drop in a hemoglobin could be due to other factors such as hemodilution. RECOMMENDATIONS: 1. Monitor H and H and transfuse as needed. 2. Agree with stopping heparin. 3. IV PPI b.i.d. or daily is appropriate for now. 4. Monitor stool output for evidence of GI blood loss. 5. Consider CT scan when the patient is stable, to evaluate for retroperitoneal hematoma. Case was discussed with Dr. Couch. JOB# [id number] C/NTS
[2016-05-27] MEDS: DUONEB 0.5 MG-3 MG/3 ML SOLN IH SCH ×4 (02:32→20:38)
[2016-05-27] MEDS: PROTONIX 80 MG in NACL 0.9% 100 ML IV SCH (03:15)
[2016-05-27] MEDS: DILAUDID IV PRN ×3 (03:58→16:54)
[2016-05-27] MEDS ORDERED: PROTONIX 80 MG in NACL 0.9% 100 ML IV SCH (04:00)
[2016-05-27] MEDS: SODIUM BICARBONATE 150 MEQ in D5W 1,000 ML IV SCH (04:05)
[2016-05-27 05:33] LABS: ISTAT Base Excess -3; ISTAT HCO3 21.8; ISTAT PCO2 36.1 (35-45); ISTAT PO2 62 (80-105); ISTAT SO2 91; ISTAT TCO2 23
[2016-05-27 06:00] LABS: Hematocrit 23.1 % (35.5-45.6); Hemoglobin 7.6 gm/dl (11.8-15.2)
[2016-05-27] MEDS ORDERED: LEVOPHED DRIP 4 MG/NS 250 ML 250 ML IV SCH ×3 (06:00)
[2016-05-27] MEDS: NOVOLOG SUB-Q SCH ×4 (06:20→17:01)
[2016-05-27] MEDS ORDERED: NACL 0.9% 500 ML 500 ML IV ONE (06:37)
[2016-05-27] MEDS: PULMICORT IH SCH ×2 (08:11→20:38)
[2016-05-27 08:59] LABS: BUN/Creatinine Ratio 21.03; Bilirubin,Total 0.5 mg/dL (0.1-1.2); Calcium 6.3 mg/dL (8.4-10.2); Potassium 4.1 mmol/L (3.6-5.0); Total Protein 4.5 g/dL (6.3-8.2)
[2016-05-27 09:00] LABS: Chloride 94.8 mmol/L (98-107)
--- NOTE | 2016-05-27 09:45 | XRay Report ---
KUB for Dobbhoff tube placement. Findings: A Dobbhoff tube terminates in proximal stomach.
[2016-05-27] MEDS ORDERED: PEPCID PO SCH (10:00)
--- NOTE | 2016-05-27 10:55 | XRay Report ---
FINAL REPORT EXAM: XR CHEST 1V AP HISTORY: ETT placement TECHNIQUE: AP portable view of the chest PRIORS: None. FINDINGS: Lines, tubes, and devices: The endotracheal tube terminates at the level of the aortic arch, approximately 3.5 cm above the ziggy.. A feeding tube terminates in the left upper quadrant of the abdomen, likely in the stomach. A right subclavian venous catheter terminates in the mid superior vena cava. Lungs and pleura: Trachea is normal in position. Apical pleural thickening on the right is present. Lungs are clear of infiltrate, pleural effusion, vascular congestion, or pneumothorax. Cardiomediastinal silhouette: Calcification of the aortic arch is again noted. Cardiac and mediastinal silhouettes are unremarkable. Other: Bony structures are intact. IMPRESSION: Satisfactory lines and tubes placement. No acute cardiopulmonary process seen. Apical pleural thickening on the right is noted.
--- NOTE | 2016-05-27 11:31 | Progress Note ---
Assessment and Plan - Patient Problems (1) Acute exacerbation of chronic obstructive pulmonary disease (COPD) Current Visit: Yes Status: Acute Plan to address problem: - continue supplemental oxygen to keep sats >/= 92% - continue empiric AB's and follow cultures - transferred to ICU - continue ALIN and LABA - continue systemic steroids slow taper - complete VTE w/up - repeat ABG - intubated yesterday and on MVS - reduce set minute ventilation - hopefully weaning from tomorrow am (2) Acute on chronic respiratory failure with hypoxemia Current Visit: Yes Status: Acute Plan to address problem: - as above - continue aspiration precautions / VAP bundles - continue bronchodilators and pulmonary toilet (3) Obesity Current Visit: Yes Status: Acute Plan to address problem: - weight loss - outpatient PSG (4) Sepsis syndrome Current Visit: Yes Status: Acute Plan to address problem: - CRP unremarkable - Lactate trending down - hold on broadening AB's - get labs and r/o significant bleeding occultly - aggressive volume resuscitation - central venous access obtained - stop alkalanized fluids now - switch to more conservative volume management at this point (5) Anemia Current Visit: Yes Status: Acute Plan to address problem: - suspect inappropriate rise in Hb post 2 units PRBC's is due to hemodilution - will follow and hold on transfusion except Hb < 7.0 at this point - GI evaluation noted - change to bid PPI dosing (6) RUBIA (acute kidney injury) Current Visit: Yes Status: Acute Plan to address problem: - non oliguric - will consult nephrology sooner rather than later - likely ATN component in setting of IVVD (7) Discharge planning issues Current Visit: Yes Status: Acute Plan to address problem: - hopefully weans well; if does not may need LTAC evaluation but not at this point ...he is critically ill on life sustaining interventions including MVS and at high risk for further deterioration including ...35' CCT .....care plan discussed with relative at bedside (daughter) Subjective Date of service: 05/27/16 Principal diagnosis: Acute on Chronic Hypoxemic Respiratory Failure Interval history: Seen and examined at bedside; 24 hour events reviewed; nursing and respiratory care staff consulted; no adverse overnight events reported to me;doing better overall; AMS is improved and he is appropriate; no gross bleeding; weaning off vasopressors (Off dopamine); denies acute chest pains; no emesis or overt aspiration; no high grade fevers Objective Vital Signs - 12hr 05/26/16 05/26/16 05/26/16 23:31 23:40 23:58 Temperature 96.0 F L Pulse Rate 118 H 118 H 115 H Pulse Rate [ Anterior Bilateral Throughout] Pulse Rate [ From Monitor] Respiratory 18 18 Rate Respiratory Rate [Anterior Bilateral Throughout] Blood Pressure 125/58 125/58 114/55 O2 Sat by Pulse 100 100 100 Oximetry 05/27/16 05/27/16 05/27/16 00:00 00:01 00:21 Temperature 96.0 F L 97.7 F Pulse Rate 117 H 118 H 119 H Pulse Rate [ Anterior Bilateral Throughout] Pulse Rate [ From Monitor] Respiratory 19 18 21 Rate Respiratory Rate [Anterior Bilateral Throughout] Blood Pressure 107/60 107/60 127/64 O2 Sat by Pulse 100 100 100 Oximetry 05/27/16 05/27/16 05/27/16 00:31 00:45 01:00 Temperature 96.9 F L 96.9 F L Pulse Rate 121 H 118 H 114 H Pulse Rate [ Anterior Bilateral Throughout] Pulse Rate [ From Monitor] Respiratory 17 18 20 Rate Respiratory Rate [Anterior Bilateral Throughout] Blood Pressure 105/50 105/50 133/61 O2 Sat by Pulse 96 100 100 Oximetry 05/27/16 05/27/16 05/27/16 01:03 01:30 02:00 Temperature 96.9 F L 96.9 F L Pulse Rate 119 H 112 H 115 H Pulse Rate [ Anterior Bilateral Throughout] Pulse Rate [ From Monitor] Respiratory 18 25 H 21 Rate Respiratory Rate [Anterior Bilateral Throughout] Blood Pressure 131/56 113/54 126/54 O2 Sat by Pulse 100 100 100 Oximetry 05/27/16 05/27/16 05/27/16 02:30 02:39 02:50 Temperature 96.9 F L Pulse Rate 113 H Pulse Rate [ 115 H 113 H Anterior Bilateral Throughout] Pulse Rate [ From Monitor] Respiratory 19 Rate Respiratory 25 H 25 H Rate [Anterior Bilateral Throughout] Blood Pressure 115/57 O2 Sat by Pulse 100 Oximetry 05/27/16 05/27/16 05/27/16 03:00 03:11 03:13 Temperature 96.9 F L Pulse Rate 110 H 109 H 108 H Pulse Rate [ Anterior Bilateral Throughout] Pulse Rate [ From Monitor] Respiratory 18 16 21 Rate Respiratory Rate [Anterior Bilateral Throughout] Blood Pressure 130/67 130/67 130/67 O2 Sat by Pulse 100 100 100 Oximetry 05/27/16 05/27/16 05/27/16 03:17 03:21 03:30 Temperature 96.9 F L Pulse Rate 114 H 113 H 113 H Pulse Rate [ Anterior Bilateral Throughout] Pulse Rate [ From Monitor] Respiratory 20 26 H 26 H Rate Respiratory Rate [Anterior Bilateral Throughout] Blood Pressure 133/61 133/61 130/67 O2 Sat by Pulse 100 100 100 Oximetry 05/27/16 05/27/16 05/27/16 03:31 03:58 04:00 Temperature 98.7 F Pulse Rate 114 H 107 H Pulse Rate [ Anterior Bilateral Throughout] Pulse Rate [ From Monitor] Respiratory 31 H 25 H 22 Rate Respiratory Rate [Anterior Bilateral Throughout] Blood Pressure 108/75 145/55 O2 Sat by Pulse 99 98 Oximetry 05/27/16 05/27/16 05/27/16 04:15 04:28 04:30 Temperature Pulse Rate 96 H Pulse Rate [ Anterior Bilateral Throughout] Pulse Rate [ From Monitor] Respiratory 21 17 Rate Respiratory Rate [Anterior Bilateral Throughout] Blood Pressure 82/47 O2 Sat by Pulse 96 98 Oximetry 05/27/16 05/27/16 05/27/16 04:57 05:00 05:04 Temperature Pulse Rate 94 H 94 H 96 H Pulse Rate [ Anterior Bilateral Throughout] Pulse Rate [ From Monitor] Respiratory 21 17 Rate Respiratory Rate [Anterior Bilateral Throughout] Blood Pressure 90/50 98/49 98/49 O2 Sat by Pulse 97 97 96 Oximetry 05/27/16 05/27/16 05/27/16 05:21 05:30 06:00 Temperature Pulse Rate 92 H 92 H 97 H Pulse Rate [ Anterior Bilateral Throughout] Pulse Rate [ From Monitor] Respiratory 18 19 18 Rate Respiratory Rate [Anterior Bilateral Throughout] Blood Pressure 103/53 107/56 111/55 O2 Sat by Pulse 99 100 99 Oximetry 05/27/16 05/27/16 05/27/16 06:08 06:30 07:30 Temperature 97.5 F L Pulse Rate 93 H Pulse Rate [ Anterior Bilateral Throughout] Pulse Rate [ 92 H From Monitor] Respiratory 18 18 Rate Respiratory Rate [Anterior Bilateral Throughout] Blood Pressure 124/57 O2 Sat by Pulse 100 100 Oximetry 05/27/16 05/27/16 08:00 08:12 Temperature Pulse Rate 93 H Pulse Rate [ 94 H Anterior Bilateral Throughout] Pulse Rate [ From Monitor] Respiratory Rate Respiratory 28 H Rate [Anterior Bilateral Throughout] Blood Pressure 124/57 O2 Sat by Pulse 100 Oximetry Constitutional: no acute distress, other (somnolent) Eyes: non-icteric ENT: oropharynx moist Neck: supple, no lymphadenopathy Effort: mildly labored Ascultation: Bilateral: diminished breath sounds, rales Cardiovascular: regular rate and rhythm Gastrointestinal: normoactive bowel sounds, soft, non-tender, non-distended Integumentary: normal Extremities: no cyanosis, no edema, pink and warm, pulses normal Neurologic: normal mental status, non-focal exam, pupils equal and round, motor strength normal and Psychiatric: mood appropriate (to assess), other CBC and BMP: 05/27/16 05:50 05/27/16 08:30 ABG, PT/INR, D-dimer: ABG POC ABG pH 7.390 (7.35-7.45) 05/27/16 05:13 POC ABG pCO2 36.1 (35-45) 05/27/16 05:13 POC ABG pO2 62 (80-105) L 05/27/16 05:13 POC ABG HCO3 21.8 05/27/16 05:13 POC ABG Total CO2 23 05/27/16 05:13 POC ABG O2 Sat 91 05/27/16 05:13 PT/INR, D-dimer PT 13.4 Sec. (12.2-14.9) 05/25/16 13:38 INR 1.03 (0.87-1.13) 05/25/16 13:38 D-Dimer 239.48 ng/mlDDU (0-234) H 05/23/16 14:16 Abnormal lab findings: Abnormal Labs 05/23/16 05/23/16 05/23/16 06:02 09:35 11:22 WBC RBC Hgb Hct RDW Seg Neuts % (Manual) Lymphocytes % (Manual) Lymphocytes # (Manual) D-Dimer Heparin Anti-Xa Level POC ABG pH POC ABG pCO2 POC ABG pO2 Sodium Chloride Carbon Dioxide BUN Creatinine Glucose POC Glucose 174 H 232 H Hemoglobin A1c 6.4 H Lactic Acid Calcium AST ALT Total Protein Albumin Crossmatch 05/23/16 05/23/16 05/23/16 14:16 16:07 22:23 WBC RBC Hgb Hct RDW Seg Neuts % (Manual) Lymphocytes % (Manual) Lymphocytes # (Manual) D-Dimer 239.48 H Heparin Anti-Xa Level POC ABG pH POC ABG pCO2 POC ABG pO2 Sodium Chloride Carbon Dioxide BUN Creatinine Glucose POC Glucose 126 H 171 H Hemoglobin A1c Lactic Acid Calcium AST ALT Total Protein Albumin Crossmatch 05/24/16 05/24/16 05/24/16 08:08 08:08 08:19 WBC RBC 3.24 L Hgb 9.6 L Hct 28.6 L RDW 15.7 H Seg Neuts % (Manual) 71.0 H Lymphocytes % (Manual) 7.0 L Lymphocytes # (Manual) 0.8 L D-Dimer Heparin Anti-Xa Level POC ABG pH POC ABG pCO2 POC ABG pO2 Sodium 132 L Chloride 93.9 L Carbon Dioxide 18 L BUN 39 H Creatinine Glucose 166 H POC Glucose 173 H Hemoglobin A1c Lactic Acid Calcium AST ALT Total Protein Albumin Crossmatch 05/24/16 05/24/16 05/24/16 11:55 17:15 22:18 WBC RBC Hgb Hct RDW Seg Neuts % (Manual) Lymphocytes % (Manual) Lymphocytes # (Manual) D-Dimer Heparin Anti-Xa Level POC ABG pH POC ABG pCO2 POC ABG pO2 Sodium Chloride Carbon Dioxide BUN Creatinine Glucose POC Glucose 210 H 147 H 163 H Hemoglobin A1c Lactic Acid Calcium AST ALT Total Protein Albumin Crossmatch 05/25/16 05/25/16 05/25/16 08:43 13:38 14:19 WBC RBC Hgb 10.0 L Hct 30.4 L RDW Seg Neuts % (Manual) Lymphocytes % (Manual) Lymphocytes # (Manual) D-Dimer Heparin Anti-Xa Level POC ABG pH POC ABG pCO2 POC ABG pO2 Sodium Chloride Carbon Dioxide BUN Creatinine Glucose POC Glucose 177 H 180 H Hemoglobin A1c Lactic Acid Calcium AST ALT Total Protein Albumin Crossmatch 05/25/16 05/25/16 05/25/16 16:16 16:25 21:32 WBC RBC Hgb Hct RDW Seg Neuts % (Manual) Lymphocytes % (Manual) Lymphocytes # (Manual) D-Dimer Heparin Anti-Xa Level POC ABG pH POC ABG pCO2 34.3 L POC ABG pO2 114 H Sodium Chloride Carbon Dioxide BUN Creatinine Glucose POC Glucose 193 H 183 H Hemoglobin A1c Lactic Acid Calcium AST ALT Total Protein Albumin Crossmatch 05/26/16 05/26/16 05/26/16 00:06 07:42 10:17 WBC RBC Hgb Hct RDW Seg Neuts % (Manual) Lymphocytes % (Manual) Lymphocytes # (Manual) D-Dimer Heparin Anti-Xa Level 1.23 H 0.98 H POC ABG pH POC ABG pCO2 POC ABG pO2 Sodium Chloride Carbon Dioxide BUN Creatinine Glucose POC Glucose 206 H Hemoglobin A1c Lactic Acid Calcium AST ALT Total Protein Albumin Crossmatch 05/26/16 05/26/16 05/26/16 11:57 12:38 13:52 WBC 19.7 H RBC 2.56 L Hgb 7.4 L Hct 23.2 L D RDW 15.8 H Seg Neuts % (Manual) Lymphocytes % (Manual) Lymphocytes # (Manual) D-Dimer Heparin Anti-Xa Level POC ABG pH 7.298 L POC ABG pCO2 27.8 L POC ABG pO2 132 H Sodium Chloride Carbon Dioxide BUN Creatinine Glucose POC Glucose 338 H Hemoglobin A1c Lactic Acid Calcium AST ALT Total Protein Albumin Crossmatch 05/26/16 05/26/16 05/26/16 15:47 15:47 17:06 WBC RBC Hgb Hct RDW Seg Neuts % (Manual) Lymphocytes % (Manual) Lymphocytes # (Manual) D-Dimer Heparin Anti-Xa Level 1.35 H POC ABG pH 7.108 L POC ABG pCO2 POC ABG pO2 287 H Sodium Chloride Carbon Dioxide BUN Creatinine Glucose POC Glucose Hemoglobin A1c Lactic Acid 9.0 H* Calcium AST ALT Total Protein Albumin Crossmatch 05/26/16 05/26/16 05/26/16 17:12 17:15 17:53 WBC RBC Hgb Hct RDW Seg Neuts % (Manual) Lymphocytes % (Manual) Lymphocytes # (Manual) D-Dimer Heparin Anti-Xa Level POC ABG pH 7.061 L POC ABG pCO2 47.3 H POC ABG pO2 35 L Sodium Chloride Carbon Dioxide BUN Creatinine Glucose POC Glucose 275 H Hemoglobin A1c Lactic Acid Calcium AST ALT Total Protein Albumin Crossmatch See Detail 05/26/16 05/26/16 05/26/16 17:53 22:08 23:00 WBC RBC Hgb 6.7 L Hct 22.3 L RDW Seg Neuts % (Manual) Lymphocytes % (Manual) Lymphocytes # (Manual) D-Dimer Heparin Anti-Xa Level POC ABG pH 7.195 L POC ABG pCO2 POC ABG pO2 129 H Sodium Chloride Carbon Dioxide BUN Creatinine Glucose POC Glucose 250 H Hemoglobin A1c Lactic Acid Calcium AST ALT Total Protein Albumin Crossmatch 05/27/16 05/27/16 05/27/16 00:26 05:13 05:50 WBC RBC Hgb 7.6 L Hct 23.1 L RDW Seg Neuts % (Manual) Lymphocytes % (Manual) Lymphocytes # (Manual) D-Dimer Heparin Anti-Xa Level POC ABG pH 7.273 L POC ABG pCO2 POC ABG pO2 62 L Sodium Chloride Carbon Dioxide BUN Creatinine Glucose POC Glucose Hemoglobin A1c Lactic Acid Calcium AST ALT Total Protein Albumin Crossmatch 05/27/16 05/27/16 05/27/16 05:50 07:54 08:30 WBC RBC Hgb Hct RDW Seg Neuts % (Manual) Lymphocytes % (Manual) Lymphocytes # (Manual) D-Dimer Heparin Anti-Xa Level POC ABG pH POC ABG pCO2 POC ABG pO2 Sodium Chloride 94.8 L Carbon Dioxide BUN 61 H Creatinine 2.9 H D Glucose 411 H POC Glucose 385 H Hemoglobin A1c Lactic Acid 4.0 H* Calcium 6.3 L D AST 7200 H ALT 4300 H Total Protein 4.5 L D Albumin 3.0 L Crossmatch Chest x-ray: image reviewed
[2016-05-27] MEDS ORDERED: LEVEMIR SUB-Q ONE (12:00)
[2016-05-27] MEDS: HEPARIN SUB-Q SCH (12:51)
--- NOTE | 2016-05-27 12:55 | Consultation ---
History of Present Illness - Reason for Consult Consult date: 05/27/16 acute renal failure, metabolic acidosis - History of Present Illness Patient is a 80 year old WM with pmh significant for Obesity, DM type 2, HTN, COPD on home O2 and Hyperlipidemia presented to the ER via EMS complaining of difficulty breathing. Unable to obtain any history from patient and information obtained from previous documentation. Patient had symptoms for about 3 days prior to the ER visit. He was admitted for COPD exacerbation. He had an acute drop in Hb and became hypotensive requiring multiple pressors, IV fluids and tranfusion of PRBC. Curently he is on Levophed IV and ventilator. His creatinine went upto 2.9 today from 1.3 on admission. Past History Past Medical History: COPD, diabetes, hypertension, hyperlipidemia Medications and Allergies Allergies Allergy/AdvReac Type Severity Reaction Status Date / Time No Known Allergies Allergy Unverified 05/22/16 14:00 Home Medications Medication Instructions Recorded Confirmed Last Taken Type Albuterol Sulfate [Ventolin HFA] 2 puff IH Q4H PRN 05/22/16 05/22/16 05/21/16 History Alendronate Sodium [Fosamax] 70 mg PO QWEEK 05/22/16 05/22/16 05/21/16 History Aspirin [Aspirin TAB] 325 mg PO QDAY 05/22/16 05/22/16 05/21/16 History Diltiazem HCl [Diltiazem ER] 120 mg PO BID 05/22/16 05/22/16 05/21/16 History Ergocalciferol [Vitamin D2] 1 cap PO QWEEK 05/22/16 05/22/16 05/21/16 History Fluticasone [Flonase] 2 spray NS QDAY 05/22/16 05/22/16 05/21/16 History Fluticasone/Salmeterol [Advair 1 puff IH BID 05/22/16 05/22/16 05/21/16 History Diskus 500-50 mcg] Ipratropium/Albuterol Sulfate 1 ampul IH Q6HR PRN 05/22/16 05/22/16 05/21/16 History [Duoneb 0.5 mg-3 mg/3 ml Soln] Ketoconazole 2% [Nizoral] 1 applicatio TP QDAY 1205/22/16 05/21/16 History Loratadine [Claritin] 10 mg PO DAILY 05/22/16 05/22/16 05/21/16 History Losartan [Cozaar] 50 mg PO QDAY 05/22/16 05/22/16 05/21/16 History Meclizine HCl [Meclizine CHEW] 25 mg PO QDAY PRN 05/22/16 05/22/16 05/21/16 History Montelukast [Singulair] 10 mg PO QPM 05/22/16 05/22/16 05/21/16 History Pravastatin Sodium [Pravastatin] 40 mg PO QHS 05/22/16 05/22/16 05/21/16 History Triamter/Hctz 37.5-25 mg 1 tab PO QDAY 05/22/16 05/22/16 05/21/16 History [Maxzide-25] metFORMIN [Glucophage] 500 mg PO BID 05/22/16 05/22/16 05/21/16 History Active Meds: Active Medications Acetaminophen (Tylenol) 650 mg PO Q4H PRN PRN Reason: Pain MILD(1-3)/Fever >100.5/PÉREZ Albuterol (Proventil) 2.5 mg IH Q4HRT PRN PRN Reason: Shortness Of Breath Albuterol/Ipratropium (Duoneb 0.5 Mg-3 Mg/3 Ml Soln) 1 ampul IH Q6HRT [facility] Last Admin: 05/27/16 08:11 Dose: 1 ampul Bisacodyl (Dulcolax) 10 mg PA QDAY PRN PRN Reason: Constipation unrelieved by MOM Budesonide (Pulmicort) 0.5 mg IH Q12HRT [facility] Last Admin: 05/27/16 08:11 Dose: 0.5 mg Dextrose (D50w (25gm)) 50 ml IV PRN PRN PRN Reason: Hypoglycemia Ergocalciferol (Vitamin D2) 50,000 unit PO Sa [facility] Last Admin: 05/23/16 10:47 Dose: 50,000 unit Heparin Sodium (Porcine) (Heparin) 5,000 unit SUB-Q BID [facility] Last Admin: 05/27/16 12:51 Dose: 5,000 unit Hydromorphone HCl (Dilaudid) 0.5 mg IV Q3H PRN PRN Reason: Pain , Severe (7-10) Last Admin: 05/27/16 10:09 Dose: 0.5 mg Hydrophilic Ointment (Vaseline Lip Therapy) 1 applic TP Q2HR PRN PRN Reason: Dry Lips Fentanyl Citrate (Fentanyl Drip Premix) 100 mls @ 4.1 mls/hr IV TITR ARLYN; 1 MCG /KG/HR PRN Reason: Protocol Midazolam HCl (Versed/Ns 100mg/100ml) 100 mls @ 1 mls/hr IV TITR ARLYN; 1 MG/HR PRN Reason: Protocol Dopamine HCl/Dextrose (Intropin Drip 800 Mg/D5w 250 Ml) 250 mls @ 3.075 mls/hr IV TITR ARLYN; 2 MCG/KG/MIN PRN Reason: Protocol Last Titration: 05/27/16 03:00 Dose: 0 mcg/kg/min Vasopressin 20 unit/ Sodium (Chloride) 101 mls @ 12.12 mls/hr IV TITR ARLYN; 0.04 UNITS/MIN PRN Reason: Protocol Last Admin: 05/27/16 06:45 Dose: 12.12 mls/hr Phenylephrine HCl 100 mg/ (Sodium Chloride) 100 mls @ 3 mls/hr IV TITR ARLYN; 50 MCG/MIN PRN Reason: Protocol Norepinephrine (Levophed Drip 4 Mg/Ns 250 Ml) 250 mls @ 7.5 mls/hr IV TITR ARLYN ; 2 MCG/MIN PRN Reason: Protocol Last Admin: 05/27/16 12:45 Dose: 37.5 mls/hr Insulin Aspart (Novolog) 0 units SUB-Q ACHS ARLYN PRN Reason: Protocol Last Admin: 05/27/16 12:38 Dose: 8 units Insulin Detemir (Levemir) 20 units SUB-Q QHS ARLYN Magnesium Hydroxide (Milk Of Magnesia) 30 ml PO Q4H PRN PRN Reason: Constipation Methylprednisolone Sodium Succinate (Solu-Medrol) 60 mg IV Q8HR [facility] Last Admin: 05/27/16 05:12 Dose: 60 mg Montelukast Sodium (Singulair) 10 mg PO QPM [facility] Last Admin: 05/26/16 19:19 Dose: Not Given Multi-Ingred Cream/Lotion/Oil/Oint (Artificial Tears Ophth Oint) 1 applic OU Q4HR PRN PRN Reason: Dry Eye(s) Ondansetron HCl (Zofran) 4 mg IV Q8H PRN PRN Reason: N/V unrelieved by Reglan Oxycodone/Acetaminophen (Percocet 5/325) 1 tab PO Q6H PRN PRN Reason: Pain, Moderate (4-6) Pantoprazole Sodium (Protonix) 40 mg IV BID ARLYN Simvastatin (Zocor) 20 mg PO QHS ARLYN Last Admin: 05/26/16 22:57 Dose: Not Given Sodium Chloride (Nacl 0.9% 500 Ml) 1 ml IV DIRECT ARLYN Review of Systems ROS unobtainable: due to endotracheal tube Exam - Vital Signs Vital signs: Vital Signs Temp Pulse BP Pulse Ox 97.3 F L 138 H 170/110 90 05/22/16 13:57 05/22/16 13:57 05/22/16 13:57 05/22/16 13:57 - General Appearance General appearance: well-developed, well-nourished, obese, sedated on ventilator (FiO2 35%), intubated, other EENT: PERRL Neck: Present: neck supple Respiratory: Other (coarse breath sounds) Heart: regular, S1S2, no murmurs Gastrointestinal: Present: normoactive bowel sounds. Absent: tenderness, distended, guarding Integumentary: warm and dry Neurologic: other (sedated / not following any command) Musculoskeletal: Present: other (no edema) Results - Lab Results 05/27/16 05:50 05/27/16 08:30 Most recent lab results Calcium 6.3 mg/dL (8.4-10.2) L D 05/27/16 08:30 Assessment and Plan - Patient Problems (1) RUBIA (acute kidney injury) Current Visit: Yes Status: Acute Plan to address problem: Acute Kidney Injury in the setting of hypotension and anemia. Patient remain on levophed. Start on IV fluids. Urine studies ordered. CKD stage 3. (2) Shock Current Visit: Yes Status: Acute Plan to address problem: On levophed. (3) Lactic acidosis Current Visit: Yes Status: Acute (4) Acute on chronic respiratory failure with hypoxemia Current Visit: Yes Status: Acute (5) Anemia Current Visit: Yes Status: Acute Plan to address problem: S/p PRBC. (6) Shock liver Current Visit: Yes Status: Acute
[2016-05-27] MEDS ORDERED: PANCREAZE DR 10,500 UNIT FEEDTUBE PRN (13:07)
[2016-05-27] MEDS ORDERED: SIMPLE SYRUP FEEDTUBE PRN ×2 (13:07)
[2016-05-27] MEDS ORDERED: SODIUM BICARBONATE FEEDTUBE PRN (13:07)
--- NOTE | 2016-05-27 13:31 | Progress Note ---
Assessment and Plan Assessment and plan: 80-year-old male admitted with shortness of breath for 3 days reported cough with productive sputum on admission. With no chills. Normally on 3 L of oxygen at home. Requiring BiPAP. * Acute on chronic hypoxic respiratory failure * Acute blood loss anemia * Acute kidney injury * COPD exacerbation/+-asthma * Diabetes mellitus uncontrolled * Hypertension * Tremor * Hyperlipidemia * Allergic rhinitis * Metabolic acidosis * Sinus tachycardia Plan * Intubated-mechanical ventilator support * Consult assistant corporate controller * Discussed with nuclear physics professor and also with the pharmacy technologist * S/P 2 UNIT PRBC * HGB Relatively stable * continue to wean pressors * continue emperic PPI Drip, * no overt evidence of GI bleed, but will need definitive study to r/o retroperitoneal bleed * DVT and GI prophylaxis The high probability of a clinically significant, sudden or life threatening deterioration of the [pulmonary, hematologic] system(s) required my full and direct attention, intervention and personal management. The aggregate critical care time was [35] minutes. This time is in addition to time spent performing reported procedures but includes the following: [x] Data Review and interpretation [x] Patient assessment and monitoring of vital signs [x] Documentation [x] Medication orders and management History Interval history: Patient seen and examined this morning remains intubated, following commands, No adverse events reported to me by nursing staff Hospitalist Physical - Physical exam Narrative exam: VITAL SIGNS: Reviewed. GENERAL: intubated HEAD: No signs of head trauma. EYES: Pupils are equal. Extraocular motions intact. EARS: Hearing grossly intact. MOUTH: Oropharynx is normal. NECK: No adenopathy, no JVD. CHEST: Chest with clear, transmitted breath sounds bilaterally-Intubated CARDIAC: Regular rate and rhythm. S1 and S2, without murmurs, gallops, or rubs. VASCULAR: No Edema. Peripheral pulses normal and equal in all extremities. ABDOMEN: Soft, without detectable tenderness. No sign of distention. No rebound or guarding, and no masses palpated. Bowel Sounds normal. MUSCULOSKELETAL: Extremities without clubbing, cyanosis or edema. NEUROLOGIC EXAM: intubated PSYCHIATRIC: Mood normal. SKIN: No rash or lesions. - Constitutional Vitals: Temp Pulse Resp BP Pulse Ox 97.8 F 98 H 20 132/65 100 05/27/16 12:00 05/27/16 13:17 05/27/16 13:17 05/27/16 11:38 05/27/16 11:38 Results - Labs CBC & Chem 7: 05/27/16 17:15 05/27/16 08:30 Labs: Laboratory Last Values WBC 19.7 K/mm3 (4.5-11.0) H 05/26/16 13:52 RBC 2.56 M/mm3 (3.65-5.03) L 05/26/16 13:52 Hgb 7.6 gm/dl (11.8-15.2) L 05/27/16 05:50 Hct 23.1 % (35.5-45.6) L 05/27/16 05:50 MCV 91 fl (84-94) D 05/26/16 13:52 MCH 29 pg (28-32) 05/26/16 13:52 MCHC 32 % (32-34) 05/26/16 13:52 RDW 15.8 % (13.2-15.2) H 05/26/16 13:52 Plt Count 171 K/mm3 (140-440) 05/27/16 05:50 Lymph % (Auto) 13.0 % (13.4-35.0) L 05/22/16 14:25 [place] % (Auto) 13.1 % (0.0-7.3) H 05/22/16 14:25 Eos % (Auto) 1.1 % (0.0-4.3) 05/22/16 14:25 Baso % (Auto) 0.6 % (0.0-1.8) 05/22/16 14:25 Lymph # 0.8 K/mm3 (1.2-5.4) L 05/22/16 14:25 [place] # 0.8 K/mm3 (0.0-0.8) 05/22/16 14:25 Eos # 0.1 K/mm3 (0.0-0.4) 05/22/16 14:25 Baso # 0.0 K/mm3 (0.0-0.1) 05/22/16 14:25 Add Manual Diff Complete 05/24/16 08:08 Total Counted 100 05/24/16 08:08 Seg Neutrophils % Ham Facer 05/24/16 08:08 Seg Neuts % (Manual) 71.0 % (40.0-70.0) H 05/24/16 08:08 Band Neutrophils % 19.0 % 05/24/16 08:08 Lymphocytes % (Manual) 7.0 % (13.4-35.0) L 05/24/16 08:08 Reactive Lymphs % (Man) 0 % 05/24/16 08:08 Monocytes % (Manual) 3.0 % (0.0-7.3) 05/24/16 08:08 Eosinophils % (Manual) 0 % (0.0-4.3) 05/24/16 08:08 Basophils % (Manual) 0 % (0.0-1.8) 05/24/16 08:08 Metamyelocytes % 0 % 05/24/16 08:08 Myelocytes % 0 % 05/24/16 08:08 Promyelocytes % 0 % 05/24/16 08:08 Blast Cells % 0 % 05/24/16 08:08 Nucleated RBC % Not Reportable 05/24/16 08:08 Seg Neutrophils # 4.4 K/mm3 (1.8-7.7) 05/22/16 14:25 Seg Neutrophils # Man 7.7 K/mm3 (1.8-7.7) 05/24/16 08:08 Band Neutrophils # 2.1 K/mm3 05/24/16 08:08 Lymphocytes # (Manual) 0.8 K/mm3 (1.2-5.4) L 05/24/16 08:08 Abs React Lymphs (Man) 0.0 K/mm3 05/24/16 08:08 Monocytes # (Manual) 0.3 K/mm3 (0.0-0.8) 05/24/16 08:08 Eosinophils # (Manual) 0.0 K/mm3 (0.0-0.4) 05/24/16 08:08 Basophils # (Manual) 0.0 K/mm3 (0.0-0.1) 05/24/16 08:08 Metamyelocytes # 0.0 K/mm3 05/24/16 08:08 Myelocytes # 0.0 K/mm3 05/24/16 08:08 Promyelocytes # 0.0 K/mm3 05/24/16 08:08 Blast Cells # 0.0 K/mm3 05/24/16 08:08 WBC Morphology Not Reportable 05/24/16 08:08 Hypersegmented Neuts Not Reportable 05/24/16 08:08 Hyposegmented Neuts Not Reportable 05/24/16 08:08 Hypogranular Neuts Not Reportable 05/24/16 08:08 Smudge Cells Not Reportable 05/24/16 08:08 Toxic Granulation Not Reportable 05/24/16 08:08 Toxic Vacuolation Not Reportable 05/24/16 08:08 Dohle Bodies Not Reportable 05/24/16 08:08 Pelger-Huet Anomaly Not Reportable 05/24/16 08:08 Bari Rods Not Reportable 05/24/16 08:08 Platelet Estimate Not Reportable 05/24/16 08:08 Clumped Platelets Not Reportable 05/24/16 08:08 Plt Clumps, EDTA Not Reportable 05/24/16 08:08 Large Platelets Not Reportable 05/24/16 08:08 Giant Platelets Not Reportable 05/24/16 08:08 Platelet Satelliting Not Reportable 05/24/16 08:08 Plt Morphology Comment Not Reportable 05/24/16 08:08 RBC Morphology Not Reportable 05/24/16 08:08 Dimorphic RBCs Not Reportable 05/24/16 08:08 Polychromasia Not Reportable 05/24/16 08:08 Hypochromasia Not Reportable 05/24/16 08:08 Poikilocytosis Not Reportable 05/24/16 08:08 Anisocytosis 1+ 05/24/16 08:08 Microcytosis Not Reportable 05/24/16 08:08 Macrocytosis Not Reportable 05/24/16 08:08 Spherocytes Not Reportable 05/24/16 08:08 Pappenheimer Bodies Not Reportable 05/24/16 08:08 Sickle Cells Not Reportable 05/24/16 08:08 Target Cells Not Reportable 05/24/16 08:08 Tear Drop Cells Rare 05/24/16 08:08 Ovalocytes Not Reportable 05/24/16 08:08 Helmet Cells Not Reportable 05/24/16 08:08 [place] Bodies Not Reportable 05/24/16 08:08 [place] Rings Not Reportable 05/24/16 08:08 [place] Cells Not Reportable 05/24/16 08:08 Bite Cells Not Reportable 05/24/16 08:08 Crenated Cell Not Reportable 05/24/16 08:08 Elliptocytes Not Reportable 05/24/16 08:08 Acanthocytes (Spur) Not Reportable 05/24/16 08:08 Rouleaux Not Reportable 05/24/16 08:08 Hemoglobin C Crystals Not Reportable 05/24/16 08:08 Schistocytes Not Reportable 05/24/16 08:08 Malaria parasites Not Reportable 05/24/16 08:08 [place] Bodies Not Reportable 05/24/16 08:08 Hem Pathologist Commnt No 05/24/16 08:08 PT 13.4 Sec. (12.2-14.9) 05/25/16 13:38 INR 1.03 (0.87-1.13) 05/25/16 13:38 APTT 29.5 Sec. (24.2-36.6) 05/25/16 13:38 D-Dimer 239.48 ng/mlDDU (0-234) H 05/23/16 14:16 Heparin Anti-Xa Level 1.35 U.I./ml (0.3-0.7) H 05/26/16 15:47 POC ABG pH 7.390 (7.35-7.45) 05/27/16 05:13 POC ABG pCO2 36.1 (35-45) 05/27/16 05:13 POC ABG pO2 62 (80-105) L 05/27/16 05:13 POC ABG HCO3 21.8 05/27/16 05:13 POC ABG Total CO2 23 05/27/16 05:13 POC ABG O2 Sat 91 05/27/16 05:13 POC ABG Base Excess -3 05/27/16 05:13 VBG pH 7.403 (7.320-7.420) 05/22/16 14:24 FiO2 30 % 05/27/16 05:13 Sodium 138 mmol/L (137-145) 05/27/16 08:30 Potassium 4.1 mmol/L (3.6-5.0) 05/27/16 08:30 Chloride 94.8 mmol/L (98-107) L 05/27/16 08:30 Carbon Dioxide 24 mmol/L (22-30) 05/27/16 08:30 Anion Gap 23 mmol/L 05/27/16 08:30 BUN 61 mg/dL (9-20) H 05/27/16 08:30 Creatinine 2.9 mg/dL (0.8-1.5) H D 05/27/16 08:30 Estimated GFR 21 ml/min 05/27/16 08:30 BUN/Creatinine Ratio 21.03 % 05/27/16 08:30 Glucose 411 mg/dL (75-100) H 05/27/16 08:30 POC Glucose 394 (70-105) H 05/27/16 11:57 Hemoglobin A1c 6.4 % (4-6) H 05/23/16 06:02 Lactic Acid 4.0 mmol/L (0.7-2.0) H* 05/27/16 05:50 Calcium 6.3 mg/dL (8.4-10.2) L D 05/27/16 08:30 Total Bilirubin 0.5 mg/dL (0.1-1.2) 05/27/16 08:30 AST 7200 units/L (5-40) H 05/27/16 08:30 ALT 4300 units/L (7-56) H 05/27/16 08:30 Alkaline Phosphatase 58 units/L (35-129) 05/27/16 08:30 Total Creatine Kinase 53 units/L (55-170) L 05/22/16 14:24 CK-MB (CK-2) 2.1 ng/mL (0.0-4.0) 05/22/16 14:24 CK-MB (CK-2) Rel Index 3.9 (0-4) 05/22/16 14:24 Troponin T 0.023 ng/mL (0.00-0.029) 05/22/16 14:24 C-Reactive Protein 0.70 mg/dL (0.00-1.30) 05/26/16 15:47 NT-Pro-B Natriuret Pep 316.0 pg/mL (0-900) 05/22/16 14:24 Total Protein 4.5 g/dL (6.3-8.2) L D 05/27/16 08:30 Albumin 3.0 g/dL (3.9-5) L 05/27/16 08:30 Albumin/Globulin Ratio 2.0 % 05/27/16 08:30 Urine Color Yellow (Yellow) 05/22/16 22:30 Urine Turbidity Clear (Clear) 05/22/16 22:30 Urine pH 5.0 (5.0-7.0) 05/22/16 22:30 Ur Specific [place] 1.016 (1.003-1.030) 05/22/16 22:30 Urine Protein 30 mg/dl mg/dL (Negative) 05/22/16 22:30 Urine Glucose (UA) Neg mg/dL (Negative) 05/22/16 22:30 Urine Ketones Tr mg/dL (Negative) 05/22/16 22:30 Urine Blood Neg (Negative) 05/22/16 22:30 Urine Nitrite Neg (Negative) 05/22/16 22:30 Urine Bilirubin Neg (Negative) 05/22/16 22:30 Urine Urobilinogen < 2.0 mg/dL (<2.0) 05/22/16 22:30 Ur Leukocyte Esterase Neg (Negative) 05/22/16 22:30 Urine WBC (Auto) 3.0 /HPF (0.0-6.0) 05/22/16 22:30 Urine RBC (Auto) 1.0 /HPF (0.0-6.0) 05/22/16 22:30 U Epithel Cells (Auto) < 1.0 /HPF (0-13.0) 05/22/16 22:30 Hyaline Casts 1 /LPF 05/22/16 22:30 Urine Mucus Few /HPF 05/22/16 22:30 Blood Type O POSITIVE 05/26/16 17:53 Antibody Screen Negative 05/26/16 17:53 Crossmatch See Detail 05/26/16 17:53 - Imaging and Cardiology Chest x-ray: report reviewed
--- NOTE | 2016-05-27 16:03 | Gastroenterology Progress Note ---
<SAMSON CLARK - Last Filed: 05/27/16 16:03> Assessment and Plan 1. Anemia -S/P 2 units of PRBC, increase in H/H not appropriate 2/2 hemodilution -Pt with acute drop in H/H, and hypotension, who was admitted with COPD exacerbation and was on a heparin drip. Transferred to ICU requiring pressor support. Intubated. -Dobhoff in place. no evidence of bleeding. -Transfuse as needed -Empiric PPI -CT when stable to asses for RP bleeding. Subjective Date of service: 05/27/16 Principal diagnosis: Acute on Chronic Hypoxemic Respiratory Failure Interval history: Patient intubated. Currently being weaned off of presors. Objective - Constitutional Vitals: Temp Pulse Resp BP Pulse Ox 97.8 F 96 H 20 132/65 100 05/27/16 12:00 05/27/16 13:36 05/27/16 13:36 05/27/16 11:38 05/27/16 11:38 General appearance: mild distress - Respiratory Respiratory: bilateral: diminished - Cardiovascular Rhythm: regular (tachycardia) - Gastrointestinal General gastrointestinal: Present: non-tender, distended, hypoactive bowel sounds - Integumentary Integumentary: Present: warm, dry - Neurologic Neurological: other (intubated, agitated) - Labs CBC & Chem 7: 05/27/16 05:50 05/27/16 08:30 Labs: Laboratory Results - last 24 hr 05/26/16 05/26/16 05/26/16 15:47 15:47 15:47 Hgb Hct Plt Count Heparin Anti-Xa Level 1.35 H POC ABG pH POC ABG pCO2 POC ABG pO2 POC ABG HCO3 POC ABG Total CO2 POC ABG O2 Sat POC ABG Base Excess FiO2 Sodium Potassium Chloride Carbon Dioxide Anion Gap BUN Creatinine Estimated GFR BUN/Creatinine Ratio Glucose POC Glucose Lactic Acid 9.0 H* Calcium Total Bilirubin AST ALT Alkaline Phosphatase C-Reactive Protein 0.70 Total Protein Albumin Albumin/Globulin Ratio Blood Type Antibody Screen Crossmatch 05/26/16 05/26/16 05/26/16 17:06 17:12 17:15 Hgb Hct Plt Count Heparin Anti-Xa Level POC ABG pH 7.108 L 7.061 L POC ABG pCO2 40.5 47.3 H POC ABG pO2 287 H 35 L POC ABG HCO3 12.8 13.4 POC ABG Total CO2 14 15 POC ABG O2 Sat 100 45 POC ABG Base Excess -17 -17 FiO2 60 Sodium Potassium Chloride Carbon Dioxide Anion Gap BUN Creatinine Estimated GFR BUN/Creatinine Ratio Glucose POC Glucose 275 H Lactic Acid Calcium Total Bilirubin AST ALT Alkaline Phosphatase C-Reactive Protein Total Protein Albumin Albumin/Globulin Ratio Blood Type Antibody Screen Crossmatch 05/26/16 05/26/16 05/26/16 17:53 17:53 22:08 Hgb 6.7 L Hct 22.3 L Plt Count Heparin Anti-Xa Level POC ABG pH POC ABG pCO2 POC ABG pO2 POC ABG HCO3 POC ABG Total CO2 POC ABG O2 Sat POC ABG Base Excess FiO2 Sodium Potassium Chloride Carbon Dioxide Anion Gap BUN Creatinine Estimated GFR BUN/Creatinine Ratio Glucose POC Glucose 250 H Lactic Acid Calcium Total Bilirubin AST ALT Alkaline Phosphatase C-Reactive Protein Total Protein Albumin Albumin/Globulin Ratio Blood Type O POSITIVE Antibody Screen Negative Crossmatch See Detail 05/26/16 05/27/16 05/27/16 23:00 00:26 05:13 Hgb Hct Plt Count Heparin Anti-Xa Level POC ABG pH 7.195 L 7.273 L 7.390 POC ABG pCO2 39.9 37.2 36.1 POC ABG pO2 129 H 80 62 L POC ABG HCO3 15.4 17.2 21.8 POC ABG Total CO2 17 18 23 POC ABG O2 Sat 98 94 91 POC ABG Base Excess -13 -10 -3 FiO2 35 30 30 Sodium Potassium Chloride Carbon Dioxide Anion Gap BUN Creatinine Estimated GFR BUN/Creatinine Ratio Glucose POC Glucose Lactic Acid Calcium Total Bilirubin AST ALT Alkaline Phosphatase C-Reactive Protein Total Protein Albumin Albumin/Globulin Ratio Blood Type Antibody Screen Crossmatch 05/27/16 05/27/16 05/27/16 05:50 05:50 07:54 Hgb 7.6 L Hct 23.1 L Plt Count 171 Heparin Anti-Xa Level POC ABG pH POC ABG pCO2 POC ABG pO2 POC ABG HCO3 POC ABG Total CO2 POC ABG O2 Sat POC ABG Base Excess FiO2 Sodium Potassium Chloride Carbon Dioxide Anion Gap BUN Creatinine Estimated GFR BUN/Creatinine Ratio Glucose POC Glucose 385 H Lactic Acid 4.0 H* Calcium Total Bilirubin AST ALT Alkaline Phosphatase C-Reactive Protein Total Protein Albumin Albumin/Globulin Ratio Blood Type Antibody Screen Crossmatch 05/27/16 05/27/16 08:30 11:57 Hgb Hct Plt Count Heparin Anti-Xa Level POC ABG pH POC ABG pCO2 POC ABG pO2 POC ABG HCO3 POC ABG Total CO2 POC ABG O2 Sat POC ABG Base Excess FiO2 Sodium 138 Potassium 4.1 Chloride 94.8 L Carbon Dioxide 24 Anion Gap 23 BUN 61 H Creatinine 2.9 H D Estimated GFR 21 BUN/Creatinine Ratio 21.03 Glucose 411 H POC Glucose 394 H Lactic Acid Calcium 6.3 L D Total Bilirubin 0.5 AST 7200 H ALT 4300 H Alkaline Phosphatase 58 C-Reactive Protein Total Protein 4.5 L D Albumin 3.0 L Albumin/Globulin Ratio 2.0 Blood Type Antibody Screen Crossmatch <KENDAL EDMONDS R - Last Filed: 05/27/16 16:50> Assessment and Plan As per note. Discussed with Dr. Couch. Subjective Date of service: 05/27/16 Objective - Constitutional Vitals: Temp Pulse Resp BP Pulse Ox 98.1 F 112 H 20 94/43 100 05/27/16 16:00 05/27/16 16:00 05/27/16 13:36 05/27/16 16:00 05/27/16 16:00 - Labs CBC & Chem 7: 05/27/16 05:50 05/27/16 08:30 Labs: Laboratory Results - last 24 hr 05/26/16 05/26/16 05/26/16 15:47 17:06 17:12 Hgb Hct Plt Count POC ABG pH 7.108 L 7.061 L POC ABG pCO2 40.5 47.3 H POC ABG pO2 287 H 35 L POC ABG HCO3 12.8 13.4 POC ABG Total CO2 14 15 POC ABG O2 Sat 100 45 POC ABG Base Excess -17 -17 FiO2 60 Sodium Potassium Chloride Carbon Dioxide Anion Gap BUN Creatinine Estimated GFR BUN/Creatinine Ratio Glucose POC Glucose Lactic Acid 9.0 H* Calcium Total Bilirubin AST ALT Alkaline Phosphatase Total Protein Albumin Albumin/Globulin Ratio Blood Type Antibody Screen Crossmatch 05/26/16 05/26/16 05/26/16 17:15 17:53 17:53 Hgb 6.7 L Hct 22.3 L Plt Count POC ABG pH POC ABG pCO2 POC ABG pO2 POC ABG HCO3 POC ABG Total CO2 POC ABG O2 Sat POC ABG Base Excess FiO2 Sodium Potassium Chloride Carbon Dioxide Anion Gap BUN Creatinine Estimated GFR BUN/Creatinine Ratio Glucose POC Glucose 275 H Lactic Acid Calcium Total Bilirubin AST ALT Alkaline Phosphatase Total Protein Albumin Albumin/Globulin Ratio Blood Type O POSITIVE Antibody Screen Negative Crossmatch See Detail 05/26/16 05/26/16 05/27/16 22:08 23:00 00:26 Hgb Hct Plt Count POC ABG pH 7.195 L 7.273 L POC ABG pCO2 39.9 37.2 POC ABG pO2 129 H 80 POC ABG HCO3 15.4 17.2 POC ABG Total CO2 17 18 POC ABG O2 Sat 98 94 POC ABG Base Excess -13 -10 FiO2 35 30 Sodium Potassium Chloride Carbon Dioxide Anion Gap BUN Creatinine Estimated GFR BUN/Creatinine Ratio Glucose POC Glucose 250 H Lactic Acid Calcium Total Bilirubin AST ALT Alkaline Phosphatase Total Protein Albumin Albumin/Globulin Ratio Blood Type Antibody Screen Crossmatch 05/27/16 05/27/16 05/27/16 05:13 05:50 05:50 Hgb 7.6 L Hct 23.1 L Plt Count 171 POC ABG pH 7.390 POC ABG pCO2 36.1 POC ABG pO2 62 L POC ABG HCO3 21.8 POC ABG Total CO2 23 POC ABG O2 Sat 91 POC ABG Base Excess -3 FiO2 30 Sodium Potassium Chloride Carbon Dioxide Anion Gap BUN Creatinine Estimated GFR BUN/Creatinine Ratio Glucose POC Glucose Lactic Acid 4.0 H* Calcium Total Bilirubin AST ALT Alkaline Phosphatase Total Protein Albumin Albumin/Globulin Ratio Blood Type Antibody Screen Crossmatch 05/27/16 05/27/16 05/27/16 07:54 08:30 11:57 Hgb Hct Plt Count POC ABG pH POC ABG pCO2 POC ABG pO2 POC ABG HCO3 POC ABG Total CO2 POC ABG O2 Sat POC ABG Base Excess FiO2 Sodium 138 Potassium 4.1 Chloride 94.8 L Carbon Dioxide 24 Anion Gap 23 BUN 61 H Creatinine 2.9 H D Estimated GFR 21 BUN/Creatinine Ratio 21.03 Glucose 411 H POC Glucose 385 H 394 H Lactic Acid Calcium 6.3 L D Total Bilirubin 0.5 AST 7200 H ALT 4300 H Alkaline Phosphatase 58 Total Protein 4.5 L D Albumin 3.0 L Albumin/Globulin Ratio 2.0 Blood Type Antibody Screen Crossmatch 05/27/16 05/27/16 16:04 16:37 Hgb Hct Plt Count POC ABG pH 7.396 POC ABG pCO2 42.8 POC ABG pO2 98 POC ABG HCO3 26.2 POC ABG Total CO2 28 POC ABG O2 Sat 98 POC ABG Base Excess 1 FiO2 35 Sodium Potassium Chloride Carbon Dioxide Anion Gap BUN Creatinine Estimated GFR BUN/Creatinine Ratio Glucose POC Glucose 292 H Lactic Acid Calcium Total Bilirubin AST ALT Alkaline Phosphatase Total Protein Albumin Albumin/Globulin Ratio Blood Type Antibody Screen Crossmatch
[2016-05-27 16:42] LABS: ISTAT Base Excess 1; ISTAT HCO3 26.2; ISTAT PCO2 42.8 (35-45); ISTAT PH 7.396 (7.35-7.45); ISTAT PO2 98 (80-105); ISTAT SO2 98; ISTAT TCO2 28
[2016-05-27] MEDS: NACL 0.9% 1000 ML 1,000 ML IV SCH (16:55)
[2016-05-27] MEDS: SINGULAIR PO SCH (17:02)
[2016-05-27 17:49] LABS: Hematocrit 22.5 % (35.5-45.6); Hemoglobin 7.5 gm/dl (11.8-15.2)
[2016-05-27 19:09] LABS: Albumin 2.8 g/dL (3.9-5); Albumin/Globulin Ratio 1.6 %; Bilirubin,Direct 0.2 mg/dL (0-0.2); Bilirubin,Indirect 0.2 mg/dL; Bilirubin,Total 0.4 mg/dL (0.1-1.2); Total Protein 4.6 g/dL (6.3-8.2)
[2016-05-27] MEDS ORDERED: PROTONIX IV SCH (22:00)
[2016-05-28] MEDS: NOVOLOG SUB-Q SCH ×5 (00:36→22:41)
[2016-05-28] MEDS: HEPARIN SUB-Q SCH ×3 (00:40→22:40)
[2016-05-28 01:48] LABS: Hematocrit 24.6 % (35.5-45.6)
[2016-05-28] MEDS: DUONEB 0.5 MG-3 MG/3 ML SOLN IH SCH ×4 (02:29→20:19)
[2016-05-28 05:25] LABS: Hematocrit 23.3 % (35.5-45.6); Hemoglobin 7.6 gm/dl (11.8-15.2); Mean Corpuscular HGB Conc 33 % (32-34); Mean Corpuscular Hemoglobin 29 pg (28-32); Mean Corpuscular Volume 88 fl (84-94); Platelet Count 101 K/mm3 (140-440); Red Blood Count 2.66 M/mm3 (3.65-5.03); Red Cell Distribution Width 15.4 % (13.2-15.2); White Blood Count 19.9 K/mm3 (4.5-11.0)
[2016-05-28 05:36] LABS: Albumin 2.9 g/dL (3.9-5); Albumin/Globulin Ratio 1.5 %; BUN/Creatinine Ratio 20.25; Bilirubin,Total 0.5 mg/dL (0.1-1.2); Calcium 6.3 mg/dL (8.4-10.2); Chloride 99.2 mmol/L (98-107); Potassium 4.5 mmol/L (3.6-5.0); Total Protein 4.8 g/dL (6.3-8.2)
[2016-05-28 05:59] LABS: ISTAT Base Excess 1; ISTAT HCO3 25.3; ISTAT PCO2 38.8 (35-45); ISTAT PH 7.422 (7.35-7.45); ISTAT PO2 115 (80-105); ISTAT SO2 99; ISTAT TCO2 26
[2016-05-28] MEDS: LEVEMIR SUB-Q SCH ×2 (06:01→22:40)
[2016-05-28] MEDS: ZOCOR PO SCH ×2 (06:04→22:19)
[2016-05-28] MEDS: LEVOPHED DRIP 4 MG/NS 250 ML 250 ML IV SCH ×3 (06:16→22:12)
[2016-05-28] MEDS: PULMICORT IH SCH ×2 (07:49→20:19)
--- NOTE | 2016-05-28 08:13 | Progress Note ---
Assessment and Plan - Patient Problems (1) RUBIA (acute kidney injury) Current Visit: Yes Status: Acute Plan to address problem: Acute Kidney Injury in the setting of hypotension and anemia. Patient remain on levophed. Continue IV fluids. CKD stage 3. Creatinine continue to increase. Patient is non-oliguric. Elevated CK level noted. (2) Shock Current Visit: Yes Status: Acute Plan to address problem: On levophed. (3) Lactic acidosis Current Visit: Yes Status: Acute (4) Acute on chronic respiratory failure with hypoxemia Current Visit: Yes Status: Acute Plan to address problem: On vent. (5) Anemia Current Visit: Yes Status: Acute (6) Shock liver Current Visit: Yes Status: Acute Plan to address problem: LFTs improving. Subjective Date of service: 05/28/16 Principal diagnosis: Acute on Chronic Hypoxemic Respiratory Failure Interval history: Patient remain on the vent. Objective - Vital Signs Vital signs: Vital Signs - 12hr 05/27/16 05/27/16 05/27/16 20:15 20:31 20:40 Temperature Pulse Rate 117 H 114 H Pulse Rate [ 114 H Anterior Bilateral Throughout] Pulse Rate [ From Monitor] Respiratory 27 H 27 H Rate Respiratory 24 Rate [Anterior Bilateral Throughout] Blood Pressure 107/47 107/47 O2 Sat by Pulse 98 98 Oximetry 05/27/16 05/27/16 05/27/16 20:41 20:45 20:48 Temperature Pulse Rate 109 H 112 H Pulse Rate [ 118 H Anterior Bilateral Throughout] Pulse Rate [ From Monitor] Respiratory 20 Rate Respiratory 23 Rate [Anterior Bilateral Throughout] Blood Pressure 125/71 102/60 O2 Sat by Pulse 100 100 Oximetry 05/27/16 05/27/16 05/27/16 21:00 21:15 21:30 Temperature Pulse Rate 109 H 106 H 103 H Pulse Rate [ Anterior Bilateral Throughout] Pulse Rate [ From Monitor] Respiratory 17 17 17 Rate Respiratory Rate [Anterior Bilateral Throughout] Blood Pressure 102/60 116/54 105/54 O2 Sat by Pulse 100 100 100 Oximetry 05/27/16 05/27/16 05/27/16 21:45 22:00 22:15 Temperature Pulse Rate 105 H 103 H 99 H Pulse Rate [ Anterior Bilateral Throughout] Pulse Rate [ From Monitor] Respiratory 17 14 14 Rate Respiratory Rate [Anterior Bilateral Throughout] Blood Pressure 99/53 114/54 108/50 O2 Sat by Pulse 100 100 100 Oximetry 05/27/16 05/27/16 05/27/16 22:30 22:45 23:00 Temperature Pulse Rate 98 H 97 H 94 H Pulse Rate [ Anterior Bilateral Throughout] Pulse Rate [ From Monitor] Respiratory 16 15 12 Rate Respiratory Rate [Anterior Bilateral Throughout] Blood Pressure 113/56 117/53 117/55 O2 Sat by Pulse 100 100 100 Oximetry 05/27/16 05/27/16 05/27/16 23:15 23:22 23:30 Temperature Pulse Rate 95 H 106 H Pulse Rate [ Anterior Bilateral Throughout] Pulse Rate [ 110 H From Monitor] Respiratory 15 27 H Rate Respiratory Rate [Anterior Bilateral Throughout] Blood Pressure 119/54 119/54 O2 Sat by Pulse 100 98 100 Oximetry 05/27/16 05/28/16 05/28/16 23:45 00:00 00:01 Temperature 98.6 F Pulse Rate 105 H 120 H Pulse Rate [ Anterior Bilateral Throughout] Pulse Rate [ From Monitor] Respiratory 23 35 H Rate Respiratory Rate [Anterior Bilateral Throughout] Blood Pressure 112/80 112/80 O2 Sat by Pulse 100 97 Oximetry 05/28/16 05/28/16 05/28/16 00:15 00:31 00:35 Temperature Pulse Rate 120 H 126 H 124 H Pulse Rate [ Anterior Bilateral Throughout] Pulse Rate [ From Monitor] Respiratory 34 H 29 H Rate Respiratory Rate [Anterior Bilateral Throughout] Blood Pressure 98/48 141/90 135/65 O2 Sat by Pulse 99 97 98 Oximetry 05/28/16 05/28/16 05/28/16 00:45 01:01 01:15 Temperature Pulse Rate 122 H 120 H 120 H Pulse Rate [ Anterior Bilateral Throughout] Pulse Rate [ From Monitor] Respiratory 31 H 34 H 27 H Rate Respiratory Rate [Anterior Bilateral Throughout] Blood Pressure 113/86 116/53 126/57 O2 Sat by Pulse 100 98 99 Oximetry 05/28/16 05/28/16 05/28/16 01:31 01:45 02:00 Temperature Pulse Rate 122 H 119 H 120 H Pulse Rate [ Anterior Bilateral Throughout] Pulse Rate [ From Monitor] Respiratory 36 H 32 H 25 H Rate Respiratory Rate [Anterior Bilateral Throughout] Blood Pressure 130/58 138/54 128/55 O2 Sat by Pulse 99 100 99 Oximetry 05/28/16 05/28/16 05/28/16 02:15 02:30 02:31 Temperature Pulse Rate 119 H 118 H Pulse Rate [ 120 H Anterior Bilateral Throughout] Pulse Rate [ From Monitor] Respiratory 31 H 29 H Rate Respiratory 35 H Rate [Anterior Bilateral Throughout] Blood Pressure 126/53 138/55 O2 Sat by Pulse 100 100 Oximetry 05/28/16 05/28/16 05/28/16 02:45 02:47 03:00 Temperature Pulse Rate 117 H 117 H Pulse Rate [ 116 H Anterior Bilateral Throughout] Pulse Rate [ From Monitor] Respiratory 33 H 28 H Rate Respiratory 25 H Rate [Anterior Bilateral Throughout] Blood Pressure 132/56 136/52 O2 Sat by Pulse 100 99 Oximetry 05/28/16 05/28/16 05/28/16 03:05 03:15 03:31 Temperature Pulse Rate 120 H 118 H Pulse Rate [ Anterior Bilateral Throughout] Pulse Rate [ 121 H From Monitor] Respiratory 34 H 30 H Rate Respiratory Rate [Anterior Bilateral Throughout] Blood Pressure 127/64 136/51 O2 Sat by Pulse 99 99 99 Oximetry 05/28/16 05/28/16 05/28/16 03:45 04:00 04:15 Temperature 99.5 F Pulse Rate 119 H 120 H 121 H Pulse Rate [ Anterior Bilateral Throughout] Pulse Rate [ From Monitor] Respiratory 35 H 36 H 37 H Rate Respiratory Rate [Anterior Bilateral Throughout] Blood Pressure 139/62 145/61 136/64 O2 Sat by Pulse 99 99 99 Oximetry 05/28/16 05/28/16 05/28/16 04:30 04:45 05:01 Temperature Pulse Rate 122 H 122 H 121 H Pulse Rate [ Anterior Bilateral Throughout] Pulse Rate [ From Monitor] Respiratory 39 H 41 H 31 H Rate Respiratory Rate [Anterior Bilateral Throughout] Blood Pressure 128/54 131/61 143/65 O2 Sat by Pulse 98 98 99 Oximetry 05/28/16 05/28/16 05/28/16 05:15 05:16 05:31 Temperature Pulse Rate 122 H 123 H 125 H Pulse Rate [ Anterior Bilateral Throughout] Pulse Rate [ From Monitor] Respiratory 36 H 40 H Rate Respiratory Rate [Anterior Bilateral Throughout] Blood Pressure 143/65 157/75 O2 Sat by Pulse 98 98 99 Oximetry 05/28/16 05/28/16 05/28/16 05:45 06:01 06:15 Temperature Pulse Rate 122 H 124 H 117 H Pulse Rate [ Anterior Bilateral Throughout] Pulse Rate [ From Monitor] Respiratory 37 H 40 H 28 H Rate Respiratory Rate [Anterior Bilateral Throughout] Blood Pressure 155/72 148/67 134/56 O2 Sat by Pulse 99 99 99 Oximetry 05/28/16 05/28/16 05/28/16 06:31 06:45 07:00 Temperature Pulse Rate 124 H 124 H 123 H Pulse Rate [ Anterior Bilateral Throughout] Pulse Rate [ From Monitor] Respiratory 40 H 38 H 39 H Rate Respiratory Rate [Anterior Bilateral Throughout] Blood Pressure 140/62 140/62 143/66 O2 Sat by Pulse 98 98 99 Oximetry 05/28/16 05/28/16 05/28/16 07:15 07:31 07:45 Temperature Pulse Rate 128 H 124 H 119 H Pulse Rate [ Anterior Bilateral Throughout] Pulse Rate [ From Monitor] Respiratory 40 H 37 H 13 Rate Respiratory Rate [Anterior Bilateral Throughout] Blood Pressure 149/74 138/58 126/57 O2 Sat by Pulse 98 99 98 Oximetry 05/28/16 05/28/16 07:47 07:49 Temperature 98.7 F Pulse Rate Pulse Rate [ 117 H Anterior Bilateral Throughout] Pulse Rate [ From Monitor] Respiratory Rate Respiratory 39 H Rate [Anterior Bilateral Throughout] Blood Pressure O2 Sat by Pulse Oximetry - General Appearance General appearance: well-developed, well-nourished, obese, intubated (FiO2 25%) , other (alert) EENT: PERRL, mucous membranes moist Neck: supple Respiratory: Present: Other (coarse breath sounds) Cardiology: regular, S1S2, no murmurs Gastrointestinal: normoactive bowel sounds, no tenderness, no distended, no guarding Integumentary: no rash, warm and dry Neurologic: other (exam limited as patient is intubated) Musculoskeletal: other (no edema) - Lab 05/28/16 04:50 05/28/16 04:50 Most recent lab results Calcium 6.3 mg/dL (8.4-10.2) L 05/28/16 04:50 Urine Creatinine 69.9 mg/dL (0.1-20.0) H 05/27/16 18:00 Urine Sodium 46 mEq/L 05/27/16 18:00
--- NOTE | 2016-05-28 08:37 | XRay Report ---
Portable chest: There are no infiltrates or nodules identified. There is a slightly coarse overall interstitial pulmonary pattern throughout both lungs. Multiple life support lines are in good positions including right PICC line, endotracheal tube, nasogastric tube. Compared to prior study of May 26 there are no significant changes. Impression: Chronic pulmonary changes. Well-positioned life support tubes. No acute finding.
--- NOTE | 2016-05-28 08:52 | Vascular Lab Report ---
LOWER EXTREMITY VENOUS DUPLEX: REASON FOR EXAM: Elevated d-dimer. COMMENTS ON THE RIGHT: All veins visualized are freely compressible without evidence of internal echogenicity. Flow is spontaneous and phasic throughout. COMMENTS ON THE LEFT: All veins visualized are freely compressible without evidence of internal echogenicity. Flow is spontaneous and phasic throughout. IMPRESSION: No evidence of acute or chronic deep venous thrombosis in either lower extremity.
--- NOTE | 2016-05-28 09:06 | Progress Note ---
Assessment and Plan Assessment and plan: 80-year-old male admitted with shortness of breath for 3 days reported cough with productive sputum on admission. With no chills. Normally on 3 L of oxygen at home. Admitted as noted was no shortness of breath. Patient was also noted to have elevated d-dimer. Attempt to obtain CTA was delayed and was started on heparin drip until this could be ruled out. Patient subsequently decompensated with decreased blood pressure and hemoglobin are prior to this mario blood cells also to the ICU and was intubated for support. Continues to improve today within procedures have been started. * Acute on chronic hypoxic respiratory failure * Acute blood loss anemia * Acute kidney injury- creatning still increaseing, likely secondary to ATN. 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 The aggregate critical care time was [31] minutes. This time is in addition to time spent performing reported procedures but includes the following: [x] Data Review and interpretation [x] Patient assessment and monitoring of vital signs [x] Documentation [x] Medication orders and management History Interval history: Patient seen and examined this morning remains intubated, following commands, No adverse events reported to me by nursing staff Hospitalist Physical - Physical exam Narrative exam: VITAL SIGNS: Reviewed. GENERAL: intubated HEAD: No signs of head trauma. EYES: Pupils are equal. Extraocular motions intact. EARS: Hearing grossly intact. MOUTH: Oropharynx is normal. NECK: No adenopathy, no JVD. CHEST: Chest with clear, transmitted breath sounds bilaterally-Intubated CARDIAC: Regular rate and rhythm. S1 and S2, without murmurs, gallops, or rubs. VASCULAR: No Edema. Peripheral pulses normal and equal in all extremities. ABDOMEN: Soft, without detectable tenderness. Distended. No rebound or guarding, and no masses palpated. Bowel Sounds normal. MUSCULOSKELETAL: Extremities without clubbing, cyanosis or edema. NEUROLOGIC EXAM: intubated PSYCHIATRIC: Mood normal. SKIN: No rash or lesions. - Constitutional Vitals: Temp Pulse Resp BP Pulse Ox 98.7 F 119 H 36 H 126/57 100 05/28/16 07:47 05/28/16 08:19 05/28/16 08:18 05/28/16 08:19 05/28/16 08:19 Results - Labs CBC & Chem 7: 05/28/16 04:50 05/28/16 04:50 Labs: Laboratory Last Values WBC 19.9 K/mm3 (4.5-11.0) H 05/28/16 04:50 RBC 2.66 M/mm3 (3.65-5.03) L 05/28/16 04:50 Hgb 7.6 gm/dl (11.8-15.2) L 05/28/16 04:50 Hct 23.3 % (35.5-45.6) L 05/28/16 04:50 MCV 88 fl (84-94) D 05/28/16 04:50 MCH 29 pg (28-32) 05/28/16 04:50 MCHC 33 % (32-34) 05/28/16 04:50 RDW 15.4 % (13.2-15.2) H 05/28/16 04:50 Plt Count 101 K/mm3 (140-440) L 05/28/16 04:50 Lymph % (Auto) 13.0 % (13.4-35.0) L 05/22/16 14:25 Tucker % (Auto) 13.1 % (0.0-7.3) H 05/22/16 14:25 Eos % (Auto) 1.1 % (0.0-4.3) 05/22/16 14:25 Baso % (Auto) 0.6 % (0.0-1.8) 05/22/16 14:25 Lymph # 0.8 K/mm3 (1.2-5.4) L 05/22/16 14:25 Tucker # 0.8 K/mm3 (0.0-0.8) 05/22/16 14:25 Eos # 0.1 K/mm3 (0.0-0.4) 05/22/16 14:25 Baso # 0.0 K/mm3 (0.0-0.1) 05/22/16 14:25 Add Manual Diff Complete 05/24/16 08:08 Total Counted 100 05/24/16 08:08 Seg Neutrophils % Product Development Intern 05/24/16 08:08 Seg Neuts % (Manual) 71.0 % (40.0-70.0) H 05/24/16 08:08 Band Neutrophils % 19.0 % 05/24/16 08:08 Lymphocytes % (Manual) 7.0 % (13.4-35.0) L 05/24/16 08:08 Reactive Lymphs % (Man) 0 % 05/24/16 08:08 Monocytes % (Manual) 3.0 % (0.0-7.3) 05/24/16 08:08 Eosinophils % (Manual) 0 % (0.0-4.3) 05/24/16 08:08 Basophils % (Manual) 0 % (0.0-1.8) 05/24/16 08:08 Metamyelocytes % 0 % 05/24/16 08:08 Myelocytes % 0 % 05/24/16 08:08 Promyelocytes % 0 % 05/24/16 08:08 Blast Cells % 0 % 05/24/16 08:08 Nucleated RBC % Not Reportable 05/24/16 08:08 Seg Neutrophils # 4.4 K/mm3 (1.8-7.7) 05/22/16 14:25 Seg Neutrophils # Man 7.7 K/mm3 (1.8-7.7) 05/24/16 08:08 Band Neutrophils # 2.1 K/mm3 05/24/16 08:08 Lymphocytes # (Manual) 0.8 K/mm3 (1.2-5.4) L 05/24/16 08:08 Abs React Lymphs (Man) 0.0 K/mm3 05/24/16 08:08 Monocytes # (Manual) 0.3 K/mm3 (0.0-0.8) 05/24/16 08:08 Eosinophils # (Manual) 0.0 K/mm3 (0.0-0.4) 05/24/16 08:08 Basophils # (Manual) 0.0 K/mm3 (0.0-0.1) 05/24/16 08:08 Metamyelocytes # 0.0 K/mm3 05/24/16 08:08 Myelocytes # 0.0 K/mm3 05/24/16 08:08 Promyelocytes # 0.0 K/mm3 05/24/16 08:08 Blast Cells # 0.0 K/mm3 05/24/16 08:08 WBC Morphology Not Reportable 05/24/16 08:08 Hypersegmented Neuts Not Reportable 05/24/16 08:08 Hyposegmented Neuts Not Reportable 05/24/16 08:08 Hypogranular Neuts Not Reportable 05/24/16 08:08 Smudge Cells Not Reportable 05/24/16 08:08 Toxic Granulation Not Reportable 05/24/16 08:08 Toxic Vacuolation Not Reportable 05/24/16 08:08 Dohle Bodies Not Reportable 05/24/16 08:08 Pelger-Huet Anomaly Not Reportable 05/24/16 08:08 Bari Rods Not Reportable 05/24/16 08:08 Platelet Estimate Not Reportable 05/24/16 08:08 Clumped Platelets Not Reportable 05/24/16 08:08 Plt Clumps, EDTA Not Reportable 05/24/16 08:08 Large Platelets Not Reportable 05/24/16 08:08 Giant Platelets Not Reportable 05/24/16 08:08 Platelet Satelliting Not Reportable 05/24/16 08:08 Plt Morphology Comment Not Reportable 05/24/16 08:08 RBC Morphology Not Reportable 05/24/16 08:08 Dimorphic RBCs Not Reportable 05/24/16 08:08 Polychromasia Not Reportable 05/24/16 08:08 Hypochromasia Not Reportable 05/24/16 08:08 Poikilocytosis Not Reportable 05/24/16 08:08 Anisocytosis 1+ 05/24/16 08:08 Microcytosis Not Reportable 05/24/16 08:08 Macrocytosis Not Reportable 05/24/16 08:08 Spherocytes Not Reportable 05/24/16 08:08 Pappenheimer Bodies Not Reportable 05/24/16 08:08 Sickle Cells Not Reportable 05/24/16 08:08 Target Cells Not Reportable 05/24/16 08:08 Tear Drop Cells Rare 05/24/16 08:08 Ovalocytes Not Reportable 05/24/16 08:08 Helmet Cells Not Reportable 05/24/16 08:08 [place] Bodies Not Reportable 05/24/16 08:08 Lockney Rings Not Reportable 05/24/16 08:08 Benny Cells Not Reportable 05/24/16 08:08 Bite Cells Not Reportable 05/24/16 08:08 Crenated Cell Not Reportable 05/24/16 08:08 Elliptocytes Not Reportable 05/24/16 08:08 Acanthocytes (Spur) Not Reportable 05/24/16 08:08 Rouleaux Not Reportable 05/24/16 08:08 Hemoglobin C Crystals Not Reportable 05/24/16 08:08 Schistocytes Not Reportable 05/24/16 08:08 Malaria parasites Not Reportable 05/24/16 08:08 Andrea Bodies Not Reportable 05/24/16 08:08 Hem Pathologist Commnt No 05/24/16 08:08 PT 13.4 Sec. (12.2-14.9) 05/25/16 13:38 INR 1.03 (0.87-1.13) 05/25/16 13:38 APTT 29.5 Sec. (24.2-36.6) 05/25/16 13:38 D-Dimer 239.48 ng/mlDDU (0-234) H 05/23/16 14:16 Heparin Anti-Xa Level 1.35 U.I./ml (0.3-0.7) H 05/26/16 15:47 POC ABG pH 7.422 (7.35-7.45) 05/28/16 05:17 POC ABG pCO2 38.8 (35-45) 05/28/16 05:17 POC ABG pO2 115 (80-105) H 05/28/16 05:17 POC ABG HCO3 25.3 05/28/16 05:17 POC ABG Total CO2 26 05/28/16 05:17 POC ABG O2 Sat 99 05/28/16 05:17 POC ABG Base Excess 1 05/28/16 05:17 VBG pH 7.403 (7.320-7.420) 05/22/16 14:24 FiO2 35 % 05/28/16 05:17 Sodium 142 mmol/L (137-145) 05/28/16 04:50 Potassium 4.5 mmol/L (3.6-5.0) 05/28/16 04:50 Chloride 99.2 mmol/L (98-107) 05/28/16 04:50 Carbon Dioxide 25 mmol/L (22-30) 05/28/16 04:50 Anion Gap 22 mmol/L 05/28/16 04:50 BUN 79 mg/dL (9-20) H 05/28/16 04:50 Creatinine 3.9 mg/dL (0.8-1.5) H 05/28/16 04:50 Estimated GFR 15 ml/min 05/28/16 04:50 BUN/Creatinine Ratio 20.25 % 05/28/16 04:50 Glucose 166 mg/dL (75-100) H 05/28/16 04:50 POC Glucose 168 (70-105) H 05/28/16 07:38 Hemoglobin A1c 6.4 % (4-6) H 05/23/16 06:02 Lactic Acid 2.0 mmol/L (0.7-2.0) 05/28/16 04:50 Calcium 6.3 mg/dL (8.4-10.2) L 05/28/16 04:50 Total Bilirubin 0.5 mg/dL (0.1-1.2) 05/28/16 04:50 Direct Bilirubin 0.2 mg/dL (0-0.2) 05/27/16 18:25 Indirect Bilirubin 0.2 mg/dL 05/27/16 18:25 AST 5609 units/L (5-40) H 05/28/16 04:50 ALT 4060 units/L (7-56) H 05/28/16 04:50 Alkaline Phosphatase 68 units/L (35-129) 05/28/16 04:50 Total Creatine Kinase 929 units/L (55-170) H 05/28/16 04:50 CK-MB (CK-2) 2.1 ng/mL (0.0-4.0) 05/22/16 14:24 CK-MB (CK-2) Rel Index 3.9 (0-4) 05/22/16 14:24 Troponin T 0.023 ng/mL (0.00-0.029) 05/22/16 14:24 C-Reactive Protein 0.70 mg/dL (0.00-1.30) 05/26/16 15:47 NT-Pro-B Natriuret Pep 316.0 pg/mL (0-900) 05/22/16 14:24 Total Protein 4.8 g/dL (6.3-8.2) L 05/28/16 04:50 Albumin 2.9 g/dL (3.9-5) L 05/28/16 04:50 Albumin/Globulin Ratio 1.5 % 05/28/16 04:50 Urine Color Yellow (Yellow) 05/22/16 22:30 Urine Turbidity Clear (Clear) 05/22/16 22:30 Urine pH 5.0 (5.0-7.0) 05/22/16 22:30 Ur Specific [place] 1.016 (1.003-1.030) 05/22/16 22:30 Urine Protein 30 mg/dl mg/dL (Negative) 05/22/16 22:30 Urine Glucose (UA) Neg mg/dL (Negative) 05/22/16 22:30 Urine Ketones Tr mg/dL (Negative) 05/22/16 22:30 Urine Blood Neg (Negative) 05/22/16 22:30 Urine Nitrite Neg (Negative) 05/22/16 22:30 Urine Bilirubin Neg (Negative) 05/22/16 22:30 Urine Urobilinogen < 2.0 mg/dL (<2.0) 05/22/16 22:30 Ur Leukocyte Esterase Neg (Negative) 05/22/16 22:30 Urine WBC (Auto) 3.0 /HPF (0.0-6.0) 05/22/16 22:30 Urine RBC (Auto) 1.0 /HPF (0.0-6.0) 05/22/16 22:30 U Epithel Cells (Auto) < 1.0 /HPF (0-13.0) 05/22/16 22:30 Hyaline Casts 1 /LPF 05/22/16 22:30 Urine Mucus Few /HPF 05/22/16 22:30 Urine Creatinine 69.9 mg/dL (0.1-20.0) H 05/27/16 18:00 Urine Sodium 46 mEq/L 05/27/16 18:00 Blood Type O POSITIVE 05/26/16 17:53 Antibody Screen Negative 05/26/16 17:53 Crossmatch See Detail 05/26/16 17:53
[2016-05-28] MEDS: PROTONIX PO SCH ×2 (09:51→22:18)
[2016-05-28] MEDS: fentaNYL DRIP Premix 100 ML IV SCH ×2 (13:21→22:16)
--- NOTE | 2016-05-28 13:27 | Progress Note ---
Assessment and Plan - Patient Problems (1) Acute exacerbation of chronic obstructive pulmonary disease (COPD) Current Visit: Yes Status: Acute Plan to address problem: - continue supplemental oxygen to keep sats >/= 92% - continue empiric AB's and follow cultures - transferred to ICU - continue ALIN and LABA - continue systemic steroids slow taper - complete VTE w/up - repeat ABG - intubated yesterday and on MVS - reduce set minute ventilation - hopefully weaning from tomorrow am - add brovana (2) Acute on chronic respiratory failure with hypoxemia Current Visit: Yes Status: Acute Plan to address problem: - as above - continue aspiration precautions / VAP bundles - continue bronchodilators and pulmonary toilet - resume fentanyl drip for sedation/analgesia - get KUB and decompress abdomen if necessary (will give simethicone in short term +/- reglan) - add seroquel and prn xanax for anxiolysis (3) Obesity Current Visit: Yes Status: Acute Plan to address problem: - weight loss - outpatient PSG (4) Sepsis syndrome Current Visit: Yes Status: Acute Plan to address problem: - CRP unremarkable - Lactate trending down - hold on broadening AB's - get labs and r/o significant bleeding occultly - aggressive volume resuscitation - central venous access obtained - stopped alkalanized fluids - switch to more conservative volume management at this point (5) Anemia Current Visit: Yes Status: Acute Plan to address problem: - suspect inappropriate rise in Hb post 2 units PRBC's is due to hemodilution - will follow and hold on transfusion except Hb < 7.0 at this point - GI evaluation noted - change to bid PPI dosing - H&H holding (6) RUIBA (acute kidney injury) Current Visit: Yes Status: Acute Plan to address problem: - non oliguric - will consult nephrology sooner rather than later - likely ATN component in setting of IVVD - nephrology consulted and evaluation ongoing (7) Discharge planning issues Current Visit: Yes Status: Acute Plan to address problem: - weaning tenuously not unexpectedly so far; if does not wean well may need LTAC evaluation but not at this point ...he is critically ill on life sustaining interventions including MVS and at high risk for further deterioration including ...31' CCT Subjective Date of service: 05/28/16 Principal diagnosis: Acute on Chronic Hypoxemic Respiratory Failure Interval history: Seen and examined at bedside; 24 hour events reviewed; nursing and respiratory care staff consulted; no adverse overnight events reported to me; labored breathing on AC mode; tenuously tolerated weaning trial earlier; denies acute chest pains or increased SOB; looks anxious; abdomen distended, firm but not tense. Objective Vital Signs - 12hr 05/28/16 05/28/16 05/28/16 01:31 01:45 02:00 Temperature Pulse Rate 122 H 119 H 120 H Pulse Rate [ Anterior Bilateral Throughout] Pulse Rate [ From Monitor] Respiratory 36 H 32 H 25 H Rate Respiratory Rate [Anterior Bilateral Throughout] Blood Pressure 130/58 138/54 128/55 O2 Sat by Pulse 99 100 99 Oximetry 05/28/16 05/28/16 05/28/16 02:15 02:30 02:31 Temperature Pulse Rate 119 H 118 H Pulse Rate [ 120 H Anterior Bilateral Throughout] Pulse Rate [ From Monitor] Respiratory 31 H 29 H Rate Respiratory 35 H Rate [Anterior Bilateral Throughout] Blood Pressure 126/53 138/55 O2 Sat by Pulse 100 100 Oximetry 05/28/16 05/28/16 05/28/16 02:45 02:47 03:00 Temperature Pulse Rate 117 H 117 H Pulse Rate [ 116 H Anterior Bilateral Throughout] Pulse Rate [ From Monitor] Respiratory 33 H 28 H Rate Respiratory 25 H Rate [Anterior Bilateral Throughout] Blood Pressure 132/56 136/52 O2 Sat by Pulse 100 99 Oximetry 05/28/16 05/28/16 05/28/16 03:05 03:15 03:31 Temperature Pulse Rate 120 H 118 H Pulse Rate [ Anterior Bilateral Throughout] Pulse Rate [ 121 H From Monitor] Respiratory 34 H 30 H Rate Respiratory Rate [Anterior Bilateral Throughout] Blood Pressure 127/64 136/51 O2 Sat by Pulse 99 99 99 Oximetry 05/28/16 05/28/16 05/28/16 03:45 04:00 04:15 Temperature 99.5 F Pulse Rate 119 H 120 H 121 H Pulse Rate [ Anterior Bilateral Throughout] Pulse Rate [ From Monitor] Respiratory 35 H 36 H 37 H Rate Respiratory Rate [Anterior Bilateral Throughout] Blood Pressure 139/62 145/61 136/64 O2 Sat by Pulse 99 99 99 Oximetry 05/28/16 05/28/16 05/28/16 04:30 04:45 05:01 Temperature Pulse Rate 122 H 122 H 121 H Pulse Rate [ Anterior Bilateral Throughout] Pulse Rate [ From Monitor] Respiratory 39 H 41 H 31 H Rate Respiratory Rate [Anterior Bilateral Throughout] Blood Pressure 128/54 131/61 143/65 O2 Sat by Pulse 98 98 99 Oximetry 05/28/16 05/28/16 05/28/16 05:15 05:16 05:31 Temperature Pulse Rate 122 H 123 H 125 H Pulse Rate [ Anterior Bilateral Throughout] Pulse Rate [ From Monitor] Respiratory 36 H 40 H Rate Respiratory Rate [Anterior Bilateral Throughout] Blood Pressure 143/65 157/75 O2 Sat by Pulse 98 98 99 Oximetry 05/28/16 05/28/16 05/28/16 05:45 06:01 06:15 Temperature Pulse Rate 122 H 124 H 117 H Pulse Rate [ Anterior Bilateral Throughout] Pulse Rate [ From Monitor] Respiratory 37 H 40 H 28 H Rate Respiratory Rate [Anterior Bilateral Throughout] Blood Pressure 155/72 148/67 134/56 O2 Sat by Pulse 99 99 99 Oximetry 05/28/16 05/28/16 05/28/16 06:31 06:45 07:00 Temperature Pulse Rate 124 H 124 H 123 H Pulse Rate [ Anterior Bilateral Throughout] Pulse Rate [ From Monitor] Respiratory 40 H 38 H 39 H Rate Respiratory Rate [Anterior Bilateral Throughout] Blood Pressure 140/62 140/62 143/66 O2 Sat by Pulse 98 98 99 Oximetry 05/28/16 05/28/16 05/28/16 07:15 07:31 07:45 Temperature Pulse Rate 128 H 124 H 119 H Pulse Rate [ Anterior Bilateral Throughout] Pulse Rate [ From Monitor] Respiratory 40 H 37 H 13 Rate Respiratory Rate [Anterior Bilateral Throughout] Blood Pressure 149/74 138/58 126/57 O2 Sat by Pulse 98 99 98 Oximetry 05/28/16 05/28/16 05/28/16 07:46 07:47 07:49 Temperature 98.7 F Pulse Rate 117 H Pulse Rate [ 117 H Anterior Bilateral Throughout] Pulse Rate [ From Monitor] Respiratory 15 Rate Respiratory 39 H Rate [Anterior Bilateral Throughout] Blood Pressure 126/57 O2 Sat by Pulse 99 Oximetry 05/28/16 05/28/16 05/28/16 08:00 08:15 08:18 Temperature Pulse Rate 114 H 115 H Pulse Rate [ 115 H Anterior Bilateral Throughout] Pulse Rate [ 124 H From Monitor] Respiratory 16 19 Rate Respiratory 36 H Rate [Anterior Bilateral Throughout] Blood Pressure 126/58 126/58 O2 Sat by Pulse 100 100 Oximetry 05/28/16 05/28/16 05/28/16 08:19 08:30 08:45 Temperature Pulse Rate 119 H 113 H 115 H Pulse Rate [ Anterior Bilateral Throughout] Pulse Rate [ From Monitor] Respiratory 13 17 Rate Respiratory Rate [Anterior Bilateral Throughout] Blood Pressure 126/57 99/53 102/52 O2 Sat by Pulse 100 100 96 Oximetry 05/28/16 05/28/16 05/28/16 09:00 09:15 09:30 Temperature Pulse Rate 113 H 113 H 114 H Pulse Rate [ Anterior Bilateral Throughout] Pulse Rate [ From Monitor] Respiratory 11 L 16 13 Rate Respiratory Rate [Anterior Bilateral Throughout] Blood Pressure 94/47 84/48 95/44 O2 Sat by Pulse 95 80 L Oximetry 05/28/16 05/28/16 05/28/16 09:45 10:00 10:15 Temperature Pulse Rate 110 H 111 H 108 H Pulse Rate [ Anterior Bilateral Throughout] Pulse Rate [ From Monitor] Respiratory 12 12 10 L Rate Respiratory Rate [Anterior Bilateral Throughout] Blood Pressure 104/52 102/59 107/56 O2 Sat by Pulse Oximetry 05/28/16 05/28/16 05/28/16 10:30 10:42 10:45 Temperature Pulse Rate 116 H 117 H 123 H Pulse Rate [ Anterior Bilateral Throughout] Pulse Rate [ From Monitor] Respiratory 30 H 28 H Rate Respiratory Rate [Anterior Bilateral Throughout] Blood Pressure 104/65 126/57 104/65 O2 Sat by Pulse 100 92 Oximetry 05/28/16 05/28/16 05/28/16 11:01 11:15 11:31 Temperature Pulse Rate 129 H 130 H 129 H Pulse Rate [ Anterior Bilateral Throughout] Pulse Rate [ From Monitor] Respiratory 44 H 40 H 40 H Rate Respiratory Rate [Anterior Bilateral Throughout] Blood Pressure 155/101 155/101 148/63 O2 Sat by Pulse 91 92 93 Oximetry 05/28/16 05/28/16 05/28/16 11:45 12:01 12:15 Temperature Pulse Rate 130 H 130 H 129 H Pulse Rate [ Anterior Bilateral Throughout] Pulse Rate [ From Monitor] Respiratory 37 H 39 H 40 H Rate Respiratory Rate [Anterior Bilateral Throughout] Blood Pressure 148/63 155/76 155/76 O2 Sat by Pulse 93 93 94 Oximetry 05/28/16 05/28/16 05/28/16 12:31 12:45 13:00 Temperature 99.7 F H Pulse Rate 129 H 128 H Pulse Rate [ Anterior Bilateral Throughout] Pulse Rate [ From Monitor] Respiratory 39 H 39 H Rate Respiratory Rate [Anterior Bilateral Throughout] Blood Pressure 152/72 152/72 O2 Sat by Pulse 94 94 Oximetry 05/28/16 13:01 Temperature Pulse Rate 128 H Pulse Rate [ Anterior Bilateral Throughout] Pulse Rate [ From Monitor] Respiratory 39 H Rate Respiratory Rate [Anterior Bilateral Throughout] Blood Pressure 135/63 O2 Sat by Pulse 94 Oximetry Constitutional: no acute distress, other (anxious) Eyes: non-icteric ENT: oropharynx moist Neck: supple, no lymphadenopathy Effort: mildly labored Ascultation: Bilateral: diminished breath sounds, rales Cardiovascular: regular rate and rhythm Gastrointestinal: normoactive bowel sounds, non-tender, other (distended, firm but not tense) Integumentary: normal Extremities: no cyanosis, no edema, pink and warm, pulses normal Neurologic: normal mental status, non-focal exam, pupils equal and round, motor strength normal and Psychiatric: anxious CBC and BMP: 05/28/16 04:50 05/28/16 04:50 ABG, PT/INR, D-dimer: ABG POC ABG pH 7.422 (7.35-7.45) 05/28/16 05:17 POC ABG pCO2 38.8 (35-45) 05/28/16 05:17 POC ABG pO2 115 (80-105) H 05/28/16 05:17 POC ABG HCO3 25.3 05/28/16 05:17 POC ABG Total CO2 26 05/28/16 05:17 POC ABG O2 Sat 99 05/28/16 05:17 PT/INR, D-dimer PT 13.4 Sec. (12.2-14.9) 05/25/16 13:38 INR 1.03 (0.87-1.13) 05/25/16 13:38 D-Dimer 239.48 ng/mlDDU (0-234) H 05/23/16 14:16 Abnormal lab findings: Abnormal Labs 05/23/16 05/23/16 05/23/16 06:02 09:35 11:22 WBC RBC Hgb Hct RDW Plt Count Seg Neuts % (Manual) Lymphocytes % (Manual) Lymphocytes # (Manual) D-Dimer Heparin Anti-Xa Level POC ABG pH POC ABG pCO2 POC ABG pO2 Sodium Chloride Carbon Dioxide BUN Creatinine Glucose POC Glucose 174 H 232 H Hemoglobin A1c 6.4 H Lactic Acid Calcium AST ALT Total Creatine Kinase Total Protein Albumin Urine Creatinine Crossmatch 05/23/16 05/23/16 05/23/16 14:16 16:07 22:23 WBC RBC Hgb Hct RDW Plt Count Seg Neuts % (Manual) Lymphocytes % (Manual) Lymphocytes # (Manual) D-Dimer 239.48 H Heparin Anti-Xa Level POC ABG pH POC ABG pCO2 POC ABG pO2 Sodium Chloride Carbon Dioxide BUN Creatinine Glucose POC Glucose 126 H 171 H Hemoglobin A1c Lactic Acid Calcium AST ALT Total Creatine Kinase Total Protein Albumin Urine Creatinine Crossmatch 05/24/16 05/24/16 05/24/16 08:08 08:08 08:19 WBC RBC 3.24 L Hgb 9.6 L Hct 28.6 L RDW 15.7 H Plt Count Seg Neuts % (Manual) 71.0 H Lymphocytes % (Manual) 7.0 L Lymphocytes # (Manual) 0.8 L D-Dimer Heparin Anti-Xa Level POC ABG pH POC ABG pCO2 POC ABG pO2 Sodium 132 L Chloride 93.9 L Carbon Dioxide 18 L BUN 39 H Creatinine Glucose 166 H POC Glucose 173 H Hemoglobin A1c Lactic Acid Calcium AST ALT Total Creatine Kinase Total Protein Albumin Urine Creatinine Crossmatch 05/24/16 05/24/16 05/24/16 11:55 17:15 22:18 WBC RBC Hgb Hct RDW Plt Count Seg Neuts % (Manual) Lymphocytes % (Manual) Lymphocytes # (Manual) D-Dimer Heparin Anti-Xa Level POC ABG pH POC ABG pCO2 POC ABG pO2 Sodium Chloride Carbon Dioxide BUN Creatinine Glucose POC Glucose 210 H 147 H 163 H Hemoglobin A1c Lactic Acid Calcium AST ALT Total Creatine Kinase Total Protein Albumin Urine Creatinine Crossmatch 05/25/16 05/25/16 05/25/16 08:43 13:38 14:19 WBC RBC Hgb 10.0 L Hct 30.4 L RDW Plt Count Seg Neuts % (Manual) Lymphocytes % (Manual) Lymphocytes # (Manual) D-Dimer Heparin Anti-Xa Level POC ABG pH POC ABG pCO2 POC ABG pO2 Sodium Chloride Carbon Dioxide BUN Creatinine Glucose POC Glucose 177 H 180 H Hemoglobin A1c Lactic Acid Calcium AST ALT Total Creatine Kinase Total Protein Albumin Urine Creatinine Crossmatch 05/25/16 05/25/16 05/25/16 16:16 16:25 21:32 WBC RBC Hgb Hct RDW Plt Count Seg Neuts % (Manual) Lymphocytes % (Manual) Lymphocytes # (Manual) D-Dimer Heparin Anti-Xa Level POC ABG pH POC ABG pCO2 34.3 L POC ABG pO2 114 H Sodium Chloride Carbon Dioxide BUN Creatinine Glucose POC Glucose 193 H 183 H Hemoglobin A1c Lactic Acid Calcium AST ALT Total Creatine Kinase Total Protein Albumin Urine Creatinine Crossmatch 05/26/16 05/26/16 05/26/16 00:06 07:42 10:17 WBC RBC Hgb Hct RDW Plt Count Seg Neuts % (Manual) Lymphocytes % (Manual) Lymphocytes # (Manual) D-Dimer Heparin Anti-Xa Level 1.23 H 0.98 H POC ABG pH POC ABG pCO2 POC ABG pO2 Sodium Chloride Carbon Dioxide BUN Creatinine Glucose POC Glucose 206 H Hemoglobin A1c Lactic Acid Calcium AST ALT Total Creatine Kinase Total Protein Albumin Urine Creatinine Crossmatch 05/26/16 05/26/16 05/26/16 11:57 12:38 13:52 WBC 19.7 H RBC 2.56 L Hgb 7.4 L Hct 23.2 L D RDW 15.8 H Plt Count Seg Neuts % (Manual) Lymphocytes % (Manual) Lymphocytes # (Manual) D-Dimer Heparin Anti-Xa Level POC ABG pH 7.298 L POC ABG pCO2 27.8 L POC ABG pO2 132 H Sodium Chloride Carbon Dioxide BUN Creatinine Glucose POC Glucose 338 H Hemoglobin A1c Lactic Acid Calcium AST ALT Total Creatine Kinase Total Protein Albumin Urine Creatinine Crossmatch 05/26/16 05/26/16 05/26/16 15:47 15:47 17:06 WBC RBC Hgb Hct RDW Plt Count Seg Neuts % (Manual) Lymphocytes % (Manual) Lymphocytes # (Manual) D-Dimer Heparin Anti-Xa Level 1.35 H POC ABG pH 7.108 L POC ABG pCO2 POC ABG pO2 287 H Sodium Chloride Carbon Dioxide BUN Creatinine Glucose POC Glucose Hemoglobin A1c Lactic Acid 9.0 H* Calcium AST ALT Total Creatine Kinase Total Protein Albumin Urine Creatinine Crossmatch 05/26/16 05/26/16 05/26/16 17:12 17:15 17:53 WBC RBC Hgb Hct RDW Plt Count Seg Neuts % (Manual) Lymphocytes % (Manual) Lymphocytes # (Manual) D-Dimer Heparin Anti-Xa Level POC ABG pH 7.061 L POC ABG pCO2 47.3 H POC ABG pO2 35 L Sodium Chloride Carbon Dioxide BUN Creatinine Glucose POC Glucose 275 H Hemoglobin A1c Lactic Acid Calcium AST ALT Total Creatine Kinase Total Protein Albumin Urine Creatinine Crossmatch See Detail 05/26/16 05/26/16 05/26/16 17:53 22:08 23:00 WBC RBC Hgb 6.7 L Hct 22.3 L RDW Plt Count Seg Neuts % (Manual) Lymphocytes % (Manual) Lymphocytes # (Manual) D-Dimer Heparin Anti-Xa Level POC ABG pH 7.195 L POC ABG pCO2 POC ABG pO2 129 H Sodium Chloride Carbon Dioxide BUN Creatinine Glucose POC Glucose 250 H Hemoglobin A1c Lactic Acid Calcium AST ALT Total Creatine Kinase Total Protein Albumin Urine Creatinine Crossmatch 05/27/16 05/27/16 05/27/16 00:26 01:00 05:13 WBC RBC Hgb 8.0 L Hct 24.6 L RDW Plt Count Seg Neuts % (Manual) Lymphocytes % (Manual) Lymphocytes # (Manual) D-Dimer Heparin Anti-Xa Level POC ABG pH 7.273 L POC ABG pCO2 POC ABG pO2 62 L Sodium Chloride Carbon Dioxide BUN Creatinine Glucose POC Glucose Hemoglobin A1c Lactic Acid Calcium AST ALT Total Creatine Kinase Total Protein Albumin Urine Creatinine Crossmatch 05/27/16 05/27/16 05/27/16 05:50 05:50 07:54 WBC RBC Hgb 7.6 L Hct 23.1 L RDW Plt Count Seg Neuts % (Manual) Lymphocytes % (Manual) Lymphocytes # (Manual) D-Dimer Heparin Anti-Xa Level POC ABG pH POC ABG pCO2 POC ABG pO2 Sodium Chloride Carbon Dioxide BUN Creatinine Glucose POC Glucose 385 H Hemoglobin A1c Lactic Acid 4.0 H* Calcium AST ALT Total Creatine Kinase Total Protein Albumin Urine Creatinine Crossmatch 05/27/16 05/27/16 05/27/16 08:30 11:57 16:04 WBC RBC Hgb Hct RDW Plt Count Seg Neuts % (Manual) Lymphocytes % (Manual) Lymphocytes # (Manual) D-Dimer Heparin Anti-Xa Level POC ABG pH POC ABG pCO2 POC ABG pO2 Sodium Chloride 94.8 L Carbon Dioxide BUN 61 H Creatinine 2.9 H D Glucose 411 H POC Glucose 394 H 292 H Hemoglobin A1c Lactic Acid Calcium 6.3 L D AST 7200 H ALT 4300 H Total Creatine Kinase Total Protein 4.5 L D Albumin 3.0 L Urine Creatinine Crossmatch 05/27/16 05/27/16 05/27/16 17:15 18:00 18:25 WBC RBC Hgb 7.5 L Hct 22.5 L RDW Plt Count Seg Neuts % (Manual) Lymphocytes % (Manual) Lymphocytes # (Manual) D-Dimer Heparin Anti-Xa Level POC ABG pH POC ABG pCO2 POC ABG pO2 Sodium Chloride Carbon Dioxide BUN Creatinine Glucose POC Glucose Hemoglobin A1c Lactic Acid Calcium AST 8515 H ALT 4517 H Total Creatine Kinase Total Protein 4.6 L Albumin 2.8 L Urine Creatinine 69.9 H Crossmatch 05/27/16 05/28/16 05/28/16 21:44 04:50 04:50 WBC 19.9 H RBC 2.66 L Hgb 7.6 L Hct 23.3 L RDW 15.4 H Plt Count 101 L Seg Neuts % (Manual) Lymphocytes % (Manual) Lymphocytes # (Manual) D-Dimer Heparin Anti-Xa Level POC ABG pH POC ABG pCO2 POC ABG pO2 Sodium Chloride Carbon Dioxide BUN 79 H Creatinine 3.9 H Glucose 166 H POC Glucose 176 H Hemoglobin A1c Lactic Acid Calcium 6.3 L AST 5609 H ALT 4060 H Total Creatine Kinase 929 H Total Protein 4.8 L Albumin 2.9 L Urine Creatinine Crossmatch 05/28/16 05/28/16 05/28/16 05:17 07:38 12:41 WBC RBC Hgb Hct RDW Plt Count Seg Neuts % (Manual) Lymphocytes % (Manual) Lymphocytes # (Manual) D-Dimer Heparin Anti-Xa Level POC ABG pH POC ABG pCO2 POC ABG pO2 115 H Sodium Chloride Carbon Dioxide BUN Creatinine Glucose POC Glucose 168 H 173 H Hemoglobin A1c Lactic Acid Calcium AST ALT Total Creatine Kinase Total Protein Albumin Urine Creatinine Crossmatch Chest x-ray: image reviewed
--- NOTE | 2016-05-28 14:11 | Progress Note ---
Assessment and Plan 1. Anemia - drop in H/H acutely, of unclear etiology. no evid of active GI bleed. may have retroperitoneal hematoma given that he was on anticoagulation. Would get CT abd once stable. Meantime, monitor H/H and transfuse as needed. Empiric PPI. Subjective Date of service: 05/28/16 Principal diagnosis: Acute on Chronic Hypoxemic Respiratory Failure Interval history: No evidence of active GI bleed. Pt intubated. Denies abd pain. Objective - Constitutional Vitals: Vital Signs - 12hr 05/28/16 05/28/16 05/28/16 02:15 02:30 02:31 Temperature Pulse Rate 119 H 118 H Pulse Rate [ 120 H Anterior Bilateral Throughout] Pulse Rate [ From Monitor] Respiratory 31 H 29 H Rate Respiratory 35 H Rate [Anterior Bilateral Throughout] Blood Pressure 126/53 138/55 O2 Sat by Pulse 100 100 Oximetry 05/28/16 05/28/16 05/28/16 02:45 02:47 03:00 Temperature Pulse Rate 117 H 117 H Pulse Rate [ 116 H Anterior Bilateral Throughout] Pulse Rate [ From Monitor] Respiratory 33 H 28 H Rate Respiratory 25 H Rate [Anterior Bilateral Throughout] Blood Pressure 132/56 136/52 O2 Sat by Pulse 100 99 Oximetry 05/28/16 05/28/16 05/28/16 03:05 03:15 03:31 Temperature Pulse Rate 120 H 118 H Pulse Rate [ Anterior Bilateral Throughout] Pulse Rate [ 121 H From Monitor] Respiratory 34 H 30 H Rate Respiratory Rate [Anterior Bilateral Throughout] Blood Pressure 127/64 136/51 O2 Sat by Pulse 99 99 99 Oximetry 05/28/16 05/28/16 05/28/16 03:45 04:00 04:15 Temperature 99.5 F Pulse Rate 119 H 120 H 121 H Pulse Rate [ Anterior Bilateral Throughout] Pulse Rate [ From Monitor] Respiratory 35 H 36 H 37 H Rate Respiratory Rate [Anterior Bilateral Throughout] Blood Pressure 139/62 145/61 136/64 O2 Sat by Pulse 99 99 99 Oximetry 05/28/16 05/28/16 05/28/16 04:30 04:45 05:01 Temperature Pulse Rate 122 H 122 H 121 H Pulse Rate [ Anterior Bilateral Throughout] Pulse Rate [ From Monitor] Respiratory 39 H 41 H 31 H Rate Respiratory Rate [Anterior Bilateral Throughout] Blood Pressure 128/54 131/61 143/65 O2 Sat by Pulse 98 98 99 Oximetry 05/28/16 05/28/16 05/28/16 05:15 05:16 05:31 Temperature Pulse Rate 122 H 123 H 125 H Pulse Rate [ Anterior Bilateral Throughout] Pulse Rate [ From Monitor] Respiratory 36 H 40 H Rate Respiratory Rate [Anterior Bilateral Throughout] Blood Pressure 143/65 157/75 O2 Sat by Pulse 98 98 99 Oximetry 05/28/16 05/28/16 05/28/16 05:45 06:01 06:15 Temperature Pulse Rate 122 H 124 H 117 H Pulse Rate [ Anterior Bilateral Throughout] Pulse Rate [ From Monitor] Respiratory 37 H 40 H 28 H Rate Respiratory Rate [Anterior Bilateral Throughout] Blood Pressure 155/72 148/67 134/56 O2 Sat by Pulse 99 99 99 Oximetry 05/28/16 05/28/16 05/28/16 06:31 06:45 07:00 Temperature Pulse Rate 124 H 124 H 123 H Pulse Rate [ Anterior Bilateral Throughout] Pulse Rate [ From Monitor] Respiratory 40 H 38 H 39 H Rate Respiratory Rate [Anterior Bilateral Throughout] Blood Pressure 140/62 140/62 143/66 O2 Sat by Pulse 98 98 99 Oximetry 05/28/16 05/28/16 05/28/16 07:15 07:31 07:45 Temperature Pulse Rate 128 H 124 H 119 H Pulse Rate [ Anterior Bilateral Throughout] Pulse Rate [ From Monitor] Respiratory 40 H 37 H 13 Rate Respiratory Rate [Anterior Bilateral Throughout] Blood Pressure 149/74 138/58 126/57 O2 Sat by Pulse 98 99 98 Oximetry 05/28/16 05/28/16 05/28/16 07:46 07:47 07:49 Temperature 98.7 F Pulse Rate 117 H Pulse Rate [ 117 H Anterior Bilateral Throughout] Pulse Rate [ From Monitor] Respiratory 15 Rate Respiratory 39 H Rate [Anterior Bilateral Throughout] Blood Pressure 126/57 O2 Sat by Pulse 99 Oximetry 05/28/16 05/28/16 05/28/16 08:00 08:15 08:18 Temperature Pulse Rate 114 H 115 H Pulse Rate [ 115 H Anterior Bilateral Throughout] Pulse Rate [ 124 H From Monitor] Respiratory 16 19 Rate Respiratory 36 H Rate [Anterior Bilateral Throughout] Blood Pressure 126/58 126/58 O2 Sat by Pulse 100 100 Oximetry 05/28/16 05/28/16 05/28/16 08:19 08:30 08:45 Temperature Pulse Rate 119 H 113 H 115 H Pulse Rate [ Anterior Bilateral Throughout] Pulse Rate [ From Monitor] Respiratory 13 17 Rate Respiratory Rate [Anterior Bilateral Throughout] Blood Pressure 126/57 99/53 102/52 O2 Sat by Pulse 100 100 96 Oximetry 05/28/16 05/28/16 05/28/16 09:00 09:15 09:30 Temperature Pulse Rate 113 H 113 H 114 H Pulse Rate [ Anterior Bilateral Throughout] Pulse Rate [ From Monitor] Respiratory 11 L 16 13 Rate Respiratory Rate [Anterior Bilateral Throughout] Blood Pressure 94/47 84/48 95/44 O2 Sat by Pulse 95 80 L Oximetry 05/28/16 05/28/16 05/28/16 09:45 10:00 10:15 Temperature Pulse Rate 110 H 111 H 108 H Pulse Rate [ Anterior Bilateral Throughout] Pulse Rate [ From Monitor] Respiratory 12 12 10 L Rate Respiratory Rate [Anterior Bilateral Throughout] Blood Pressure 104/52 102/59 107/56 O2 Sat by Pulse Oximetry 05/28/16 05/28/16 05/28/16 10:30 10:42 10:45 Temperature Pulse Rate 116 H 117 H 123 H Pulse Rate [ Anterior Bilateral Throughout] Pulse Rate [ From Monitor] Respiratory 30 H 28 H Rate Respiratory Rate [Anterior Bilateral Throughout] Blood Pressure 104/65 126/57 104/65 O2 Sat by Pulse 100 92 Oximetry 05/28/16 05/28/16 05/28/16 11:01 11:15 11:31 Temperature Pulse Rate 129 H 130 H 129 H Pulse Rate [ Anterior Bilateral Throughout] Pulse Rate [ From Monitor] Respiratory 44 H 40 H 40 H Rate Respiratory Rate [Anterior Bilateral Throughout] Blood Pressure 155/101 155/101 148/63 O2 Sat by Pulse 91 92 93 Oximetry 05/28/16 05/28/16 05/28/16 11:45 12:01 12:15 Temperature Pulse Rate 130 H 130 H 129 H Pulse Rate [ Anterior Bilateral Throughout] Pulse Rate [ From Monitor] Respiratory 37 H 39 H 40 H Rate Respiratory Rate [Anterior Bilateral Throughout] Blood Pressure 148/63 155/76 155/76 O2 Sat by Pulse 93 93 94 Oximetry 05/28/16 05/28/16 05/28/16 12:31 12:45 13:00 Temperature 99.7 F H Pulse Rate 129 H 128 H Pulse Rate [ Anterior Bilateral Throughout] Pulse Rate [ From Monitor] Respiratory 39 H 39 H Rate Respiratory Rate [Anterior Bilateral Throughout] Blood Pressure 152/72 152/72 O2 Sat by Pulse 94 94 Oximetry 05/28/16 13:01 Temperature Pulse Rate 128 H Pulse Rate [ Anterior Bilateral Throughout] Pulse Rate [ From Monitor] Respiratory 39 H Rate Respiratory Rate [Anterior Bilateral Throughout] Blood Pressure 135/63 O2 Sat by Pulse 94 Oximetry General appearance: Present: no acute distress - EENT Eyes: PERRL, EOM intact ENT: hearing intact - Gastrointestinal General gastrointestinal: Present: non-tender, distended, hypoactive bowel sounds - Labs CBC & Chem 7: 05/28/16 04:50 05/28/16 04:50 Labs: Abnormal lab results 05/27/16 05/27/16 05/27/16 Range/Units 01:00 16:04 17:15 WBC (4.5-11.0) K/mm3 RBC (3.65-5.03) M/mm3 Hgb 8.0 L 7.5 L (11.8-15.2) gm/dl Hct 24.6 L 22.5 L (35.5-45.6) % RDW (13.2-15.2) % Plt Count (140-440) K/mm3 POC ABG pO2 (80-105) BUN (9-20) mg/dL Creatinine (0.8-1.5) mg/dL Glucose (75-100) mg/dL POC Glucose 292 H (70-105) Calcium (8.4-10.2) mg/dL AST (5-40) units/L ALT (7-56) units/L Total Creatine Kinase (55-170) units/L Total Protein (6.3-8.2) g/dL Albumin (3.9-5) g/dL Urine Creatinine (0.1-20.0) mg/dL 05/27/16 05/27/16 05/27/16 Range/Units 18:00 18:25 21:44 WBC (4.5-11.0) K/mm3 RBC (3.65-5.03) M/mm3 Hgb (11.8-15.2) gm/dl Hct (35.5-45.6) % RDW (13.2-15.2) % Plt Count (140-440) K/mm3 POC ABG pO2 (80-105) BUN (9-20) mg/dL Creatinine (0.8-1.5) mg/dL Glucose (75-100) mg/dL POC Glucose 176 H (70-105) Calcium (8.4-10.2) mg/dL AST 8515 H (5-40) units/L ALT 4517 H (7-56) units/L Total Creatine Kinase (55-170) units/L Total Protein 4.6 L (6.3-8.2) g/dL Albumin 2.8 L (3.9-5) g/dL Urine Creatinine 69.9 H (0.1-20.0) mg/dL 05/28/16 05/28/16 05/28/16 Range/Units 04:50 04:50 05:17 WBC 19.9 H (4.5-11.0) K/mm3 RBC 2.66 L (3.65-5.03) M/mm3 Hgb 7.6 L (11.8-15.2) gm/dl Hct 23.3 L (35.5-45.6) % RDW 15.4 H (13.2-15.2) % Plt Count 101 L (140-440) K/mm3 POC ABG pO2 115 H (80-105) BUN 79 H (9-20) mg/dL Creatinine 3.9 H (0.8-1.5) mg/dL Glucose 166 H (75-100) mg/dL POC Glucose (70-105) Calcium 6.3 L (8.4-10.2) mg/dL AST 5609 H (5-40) units/L ALT 4060 H (7-56) units/L Total Creatine Kinase 929 H (55-170) units/L Total Protein 4.8 L (6.3-8.2) g/dL Albumin 2.9 L (3.9-5) g/dL Urine Creatinine (0.1-20.0) mg/dL 05/28/16 05/28/16 Range/Units 07:38 12:41 WBC (4.5-11.0) K/mm3 RBC (3.65-5.03) M/mm3 Hgb (11.8-15.2) gm/dl Hct (35.5-45.6) % RDW (13.2-15.2) % Plt Count (140-440) K/mm3 POC ABG pO2 (80-105) BUN (9-20) mg/dL Creatinine (0.8-1.5) mg/dL Glucose (75-100) mg/dL POC Glucose 168 H 173 H (70-105) Calcium (8.4-10.2) mg/dL AST (5-40) units/L ALT (7-56) units/L Total Creatine Kinase (55-170) units/L Total Protein (6.3-8.2) g/dL Albumin (3.9-5) g/dL Urine Creatinine (0.1-20.0) mg/dL
[2016-05-28] MEDS: MYLICON FEEDTUBE SCH ×2 (14:46→22:11)
[2016-05-28] MEDS: REGLAN IV SCH (14:46)
--- NOTE | 2016-05-28 15:21 | XRay Report ---
KUB: Comparison is made to the prior study of May 26. There's a Dobbhoff catheter in the moderately dilated gas-filled stomach. There is generalized gaseous distention of small bowel. The colon is decompressed. No free air identified. The findings do not appear significantly different than the prior exam. Impressions: Diffuse gaseous distention. Small bowel obstruction cannot be excluded.
[2016-05-28] MEDS: SINGULAIR PO SCH (17:46)
[2016-05-28] MEDS: NACL 0.9% 1000 ML 1,000 ML IV SCH (19:15)
[2016-05-29] MEDS: DUONEB 0.5 MG-3 MG/3 ML SOLN IH SCH ×4 (02:39→19:57)
[2016-05-29] MEDS: MYLICON FEEDTUBE SCH ×3 (02:42→19:40)
[2016-05-29] MEDS: LEVOPHED DRIP 4 MG/NS 250 ML 250 ML IV SCH ×2 (05:00→22:00)
[2016-05-29] MEDS: REGLAN IV SCH ×2 (05:02→17:47)
[2016-05-29 05:04] LABS: Albumin 2.8 g/dL (3.9-5); Albumin/Globulin Ratio 1.6 %; BUN/Creatinine Ratio 20.85; Bilirubin,Total 0.3 mg/dL (0.1-1.2); Chloride 100.8 mmol/L (98-107); Potassium 4.8 mmol/L (3.6-5.0); Total Protein 4.5 g/dL (6.3-8.2)
[2016-05-29 05:12] LABS: Calcium 5.8 mg/dL (8.4-10.2)
[2016-05-29 06:41] LABS: ISTAT Base Excess -6; ISTAT HCO3 20.7; ISTAT PCO2 43.5 (35-45); ISTAT PH 7.285 (7.35-7.45); ISTAT PO2 63 (80-105); ISTAT SO2 89; ISTAT TCO2 22
--- NOTE | 2016-05-29 08:02 | Gastroenterology Progress Note ---
Addendum entered and electronically signed by SAMSON CLARK NP 05/29/16 08:04: LFTS trending down. Original Note: Assessment and Plan 1. Anemia -Follow up CBC today, no bleeding noted per nursing. -Pt with acute drop in H/H, and hypotension, who was admitted with COPD exacerbation and was on a heparin drip. Transferred to ICU requiring pressor support. Intubated/sedated -Dobhoff in place. no evidence of bleeding. -Transfuse as needed -Empiric PPI -CT when stable to asses for RP bleeding. Subjective Date of service: 05/29/16 Principal diagnosis: Acute on Chronic Hypoxemic Respiratory Failure Interval history: Patient intubated. Continues on Levophed and Sedation. Objective - Constitutional Vitals: Temp Pulse Resp BP Pulse Ox 98.3 F 97 H 13 101/48 93 05/29/16 07:45 05/29/16 06:00 05/29/16 06:00 05/29/16 06:00 05/29/16 06:00 General appearance: no acute distress, other (intubated, sedated) - Neck Neck: supple - Respiratory Respiratory: bilateral: diminished - Cardiovascular Rhythm: regular - Gastrointestinal General gastrointestinal: Present: soft, distended, normal bowel sounds - Integumentary Integumentary: Present: warm, dry - Labs CBC & Chem 7: 05/29/16 04:15 05/29/16 04:15 Labs: Laboratory Results - last 24 hr 05/28/16 05/28/16 05/28/16 12:41 16:12 21:45 Plt Count POC ABG pH POC ABG pCO2 POC ABG pO2 POC ABG HCO3 POC ABG Total CO2 POC ABG O2 Sat POC ABG Base Excess FiO2 Sodium Potassium Chloride Carbon Dioxide Anion Gap BUN Creatinine Estimated GFR BUN/Creatinine Ratio Glucose POC Glucose 173 H 210 H 221 H Calcium Total Bilirubin AST ALT Alkaline Phosphatase Total Creatine Kinase Total Protein Albumin Albumin/Globulin Ratio 05/29/16 05/29/16 05/29/16 04:15 04:15 06:14 Plt Count 71 L POC ABG pH 7.285 L POC ABG pCO2 43.5 POC ABG pO2 63 L POC ABG HCO3 20.7 POC ABG Total CO2 22 POC ABG O2 Sat 89 POC ABG Base Excess -6 FiO2 25 Sodium 142 Potassium 4.8 Chloride 100.8 Carbon Dioxide 21 L Anion Gap 25 BUN 98 H Creatinine 4.7 H Estimated GFR 12 BUN/Creatinine Ratio 20.85 Glucose 220 H POC Glucose Calcium 5.8 L* Total Bilirubin 0.3 AST 1464 H ALT 2628 H Alkaline Phosphatase 69 Total Creatine Kinase 792 H Total Protein 4.5 L Albumin 2.8 L Albumin/Globulin Ratio 1.6 05/29/16 07:28 Plt Count POC ABG pH POC ABG pCO2 POC ABG pO2 POC ABG HCO3 POC ABG Total CO2 POC ABG O2 Sat POC ABG Base Excess FiO2 Sodium Potassium Chloride Carbon Dioxide Anion Gap BUN Creatinine Estimated GFR BUN/Creatinine Ratio Glucose POC Glucose 232 H Calcium Total Bilirubin AST ALT Alkaline Phosphatase Total Creatine Kinase Total Protein Albumin Albumin/Globulin Ratio
[2016-05-29] MEDS: NOVOLOG SUB-Q SCH ×3 (08:05→19:43)
[2016-05-29] MEDS: PULMICORT IH SCH ×2 (08:13→19:57)
--- NOTE | 2016-05-29 08:21 | Progress Note ---
Assessment and Plan - Patient Problems (1) RUBIA (acute kidney injury) Current Visit: Yes Status: Acute Plan to address problem: Acute Kidney Injury superimpoed on CKD stage 3 in the setting of hypotension and anemia. Creatinine continue to increase. Renal US ordered. Patient remain on levophed. Continue IV fluids. Patient is non-oliguric. Monitor CK level. (2) Shock Current Visit: Yes Status: Acute Plan to address problem: On levophed. (3) Lactic acidosis Current Visit: Yes Status: Acute (4) Acute on chronic respiratory failure with hypoxemia Current Visit: Yes Status: Acute Plan to address problem: On vent. (5) Anemia Current Visit: Yes Status: Acute (6) Shock liver Current Visit: Yes Status: Acute Plan to address problem: LFTs improving. Subjective Date of service: 05/29/16 Principal diagnosis: Acute on Chronic Hypoxemic Respiratory Failure Interval history: Patient remain on the vent. Objective - Vital Signs Vital signs: Vital Signs - 12hr 05/28/16 05/28/16 05/28/16 20:22 20:30 20:45 Temperature Pulse Rate 97 H 100 H 98 H Pulse Rate [ 100 H Anterior Bilateral Throughout] Pulse Rate [ From Monitor] Respiratory 19 14 Rate Respiratory 16 Rate [Anterior Bilateral Throughout] Blood Pressure 115/53 94/58 100/46 O2 Sat by Pulse 96 100 95 Oximetry 05/28/16 05/28/16 05/28/16 21:00 21:15 21:31 Temperature Pulse Rate 103 H 113 H 116 H Pulse Rate [ Anterior Bilateral Throughout] Pulse Rate [ From Monitor] Respiratory 13 22 27 H Rate Respiratory Rate [Anterior Bilateral Throughout] Blood Pressure 97/49 97/49 121/52 O2 Sat by Pulse 88 84 84 Oximetry 05/28/16 05/28/16 05/28/16 21:45 22:00 22:15 Temperature Pulse Rate 118 H 115 H 112 H Pulse Rate [ Anterior Bilateral Throughout] Pulse Rate [ From Monitor] Respiratory 26 H 24 19 Rate Respiratory Rate [Anterior Bilateral Throughout] Blood Pressure 122/56 121/50 92/40 O2 Sat by Pulse 83 L 85 86 Oximetry 05/28/16 05/28/16 05/28/16 22:30 22:45 23:00 Temperature Pulse Rate 110 H 111 H 108 H Pulse Rate [ Anterior Bilateral Throughout] Pulse Rate [ From Monitor] Respiratory 16 19 14 Rate Respiratory Rate [Anterior Bilateral Throughout] Blood Pressure 88/39 87/42 81/41 O2 Sat by Pulse 87 83 L 89 Oximetry 05/28/16 05/28/16 05/28/16 23:13 23:15 23:24 Temperature Pulse Rate 106 H 106 H Pulse Rate [ Anterior Bilateral Throughout] Pulse Rate [ 105 H From Monitor] Respiratory 13 13 16 Rate Respiratory Rate [Anterior Bilateral Throughout] Blood Pressure 87/42 90/42 O2 Sat by Pulse 90 90 90 Oximetry 05/28/16 05/28/16 05/28/16 23:30 23:45 23:54 Temperature 98.0 F Pulse Rate 104 H 102 H Pulse Rate [ Anterior Bilateral Throughout] Pulse Rate [ From Monitor] Respiratory 14 13 Rate Respiratory Rate [Anterior Bilateral Throughout] Blood Pressure 94/43 97/47 O2 Sat by Pulse 91 91 Oximetry 05/29/16 05/29/16 05/29/16 00:00 00:05 00:15 Temperature Pulse Rate 101 H 102 H 101 H Pulse Rate [ Anterior Bilateral Throughout] Pulse Rate [ From Monitor] Respiratory 13 12 Rate Respiratory Rate [Anterior Bilateral Throughout] Blood Pressure 94/45 94/45 98/43 O2 Sat by Pulse 91 100 95 Oximetry 05/29/16 05/29/16 05/29/16 00:30 00:45 01:00 Temperature Pulse Rate 103 H 102 H 101 H Pulse Rate [ Anterior Bilateral Throughout] Pulse Rate [ From Monitor] Respiratory 14 12 11 L Rate Respiratory Rate [Anterior Bilateral Throughout] Blood Pressure 99/46 98/44 99/45 O2 Sat by Pulse 91 92 92 Oximetry 05/29/16 05/29/16 05/29/16 01:15 01:30 01:45 Temperature Pulse Rate 101 H 99 H 112 H Pulse Rate [ Anterior Bilateral Throughout] Pulse Rate [ From Monitor] Respiratory 10 L 14 17 Rate Respiratory Rate [Anterior Bilateral Throughout] Blood Pressure 97/42 104/45 120/59 O2 Sat by Pulse 91 92 84 Oximetry 05/29/16 05/29/16 05/29/16 02:00 02:12 02:15 Temperature Pulse Rate 108 H 104 H Pulse Rate [ 103 H Anterior Bilateral Throughout] Pulse Rate [ From Monitor] Respiratory 12 16 Rate Respiratory 16 Rate [Anterior Bilateral Throughout] Blood Pressure 105/47 96/45 O2 Sat by Pulse 89 93 Oximetry 05/29/16 05/29/16 05/29/16 02:22 02:30 02:43 Temperature Pulse Rate 100 H 99 H Pulse Rate [ 103 H Anterior Bilateral Throughout] Pulse Rate [ From Monitor] Respiratory 13 12 Rate Respiratory 15 Rate [Anterior Bilateral Throughout] Blood Pressure 103/50 105/47 O2 Sat by Pulse 100 100 Oximetry 05/29/16 05/29/16 05/29/16 02:45 03:00 03:15 Temperature Pulse Rate 100 H 100 H 99 H Pulse Rate [ Anterior Bilateral Throughout] Pulse Rate [ From Monitor] Respiratory 11 L 10 L 10 L Rate Respiratory Rate [Anterior Bilateral Throughout] Blood Pressure 104/51 95/45 105/47 O2 Sat by Pulse 97 92 93 Oximetry 05/29/16 05/29/16 05/29/16 03:30 03:45 04:00 Temperature Pulse Rate 99 H 100 H 98 H Pulse Rate [ Anterior Bilateral Throughout] Pulse Rate [ 95 H From Monitor] Respiratory 14 13 11 L Rate Respiratory Rate [Anterior Bilateral Throughout] Blood Pressure 102/48 102/49 101/49 O2 Sat by Pulse 92 92 92 Oximetry 05/29/16 05/29/16 05/29/16 04:15 04:22 04:31 Temperature Pulse Rate 100 H 113 H 111 H Pulse Rate [ Anterior Bilateral Throughout] Pulse Rate [ From Monitor] Respiratory 11 L 15 Rate Respiratory Rate [Anterior Bilateral Throughout] Blood Pressure 93/46 93/46 122/63 O2 Sat by Pulse 92 96 99 Oximetry 05/29/16 05/29/16 05/29/16 04:45 04:55 05:00 Temperature 98.5 F Pulse Rate 113 H 105 H Pulse Rate [ Anterior Bilateral Throughout] Pulse Rate [ From Monitor] Respiratory 17 13 Rate Respiratory Rate [Anterior Bilateral Throughout] Blood Pressure 122/63 103/38 O2 Sat by Pulse 82 L 93 Oximetry 05/29/16 05/29/16 05/29/16 05:15 05:30 05:45 Temperature Pulse Rate 101 H 100 H 97 H Pulse Rate [ Anterior Bilateral Throughout] Pulse Rate [ From Monitor] Respiratory 15 14 17 Rate Respiratory Rate [Anterior Bilateral Throughout] Blood Pressure 94/46 97/47 99/48 O2 Sat by Pulse 91 92 93 Oximetry 05/29/16 05/29/16 05/29/16 05:59 06:00 07:45 Temperature 98.3 F Pulse Rate 97 H 97 H Pulse Rate [ Anterior Bilateral Throughout] Pulse Rate [ From Monitor] Respiratory 14 13 Rate Respiratory Rate [Anterior Bilateral Throughout] Blood Pressure 99/48 101/48 O2 Sat by Pulse 93 93 Oximetry 05/29/16 05/29/16 08:09 08:13 Temperature Pulse Rate 101 H Pulse Rate [ 101 H Anterior Bilateral Throughout] Pulse Rate [ From Monitor] Respiratory Rate Respiratory 19 Rate [Anterior Bilateral Throughout] Blood Pressure 115/58 O2 Sat by Pulse 97 Oximetry - General Appearance General appearance: well-developed, well-nourished, obese, sedated on ventilator , intubated EENT: PERRL Neck: supple Respiratory: Present: Other (coarse breath sounds) Cardiology: regular, S1S2, no murmurs Gastrointestinal: normoactive bowel sounds, no tenderness, no distended, no guarding Integumentary: warm and dry Neurologic: other (sedated) Musculoskeletal: other (no edema) Psychiatric: other (sedated) - Lab 05/29/16 04:15 05/29/16 04:15 Most recent lab results Calcium 5.8 mg/dL (8.4-10.2) L* 05/29/16 04:15 Urine Creatinine 69.9 mg/dL (0.1-20.0) H 05/27/16 18:00 Urine Sodium 46 mEq/L 05/27/16 18:00
[2016-05-29] MEDS: fentaNYL DRIP Premix 100 ML IV SCH (09:00)
--- NOTE | 2016-05-29 09:00 | XRay Report ---
CHEST 1 VIEW INDICATION: Respiratory failure. COMPARISON: Yesterday. FINDINGS: Portable, frontal chest radiograph, 1:34 AM, 05/29/2016 reveals stable cardiomediastinal silhouette, supporting devices, appearance of the lungs and osseous structures, providing for the difference in technique. CONCLUSION: No significant interval change. Thank you for the opportunity to participate in this patient's care.
[2016-05-29] MEDS: NACL 0.9% 1000 ML 1,000 ML IV SCH ×2 (09:09→22:00)
[2016-05-29] MEDS: PROTONIX PO SCH (09:14)
--- NOTE | 2016-05-29 11:11 | XRay Report ---
Portable chest: There is a slightly coarse overall interstitial pattern bilaterally. There is focal apical pleural thickening on the right. No focal infiltrate or nodule noted. The heart is probably normal for positioning and is no vascular congestion. An endotracheal and nasogastric tube are both in good position as is a right PICC line. These findings are all unchanged from prior study of May 26. Impression: Chronic pulmonary findings. Well-positioned life-support tubes. No interval change.
--- NOTE | 2016-05-29 11:23 | Progress Note ---
Assessment and Plan - Patient Problems (1) Acute exacerbation of chronic obstructive pulmonary disease (COPD) Current Visit: Yes Status: Acute Plan to address problem: - continue supplemental oxygen to keep sats >/= 92% - continue empiric AB's and follow cultures - transferred to ICU - continue ALIN and LABA - continue systemic steroids slow taper - complete VTE w/up - repeat ABG - intubated yesterday and on MVS - reduce set minute ventilation - hopefully weaning from tomorrow am - added brovana - continue daily PSV trials - will hold on adjusting minute volumes acutely and accept current pH (2) Acute on chronic respiratory failure with hypoxemia Current Visit: Yes Status: Acute Plan to address problem: - as above - continue aspiration precautions / VAP bundles - continue bronchodilators and pulmonary toilet - resume fentanyl drip for sedation/analgesia - get KUB and decompress abdomen if necessary (will give simethicone in short term +/- reglan) - added seroquel and prn xanax for anxiolysis (3) Obesity Current Visit: Yes Status: Acute Plan to address problem: - weight loss - outpatient PSG (4) Sepsis syndrome Current Visit: Yes Status: Acute Plan to address problem: - CRP unremarkable - Lactate trending down - hold on broadening AB's - get labs and r/o significant bleeding occultly - aggressive volume resuscitation - central venous access obtained - stopped alkalanized fluids - switch to more conservative volume management at this point - follow off AB's - wean levophed to keep MAP > 60-65mmHg (5) Anemia Current Visit: Yes Status: Acute Plan to address problem: - suspect inappropriate rise in Hb post 2 units PRBC's is due to hemodilution - will follow and hold on transfusion except Hb < 7.0 at this point - GI evaluation noted - change to bid PPI dosing - H&H holding - CBC in am (6) RUBIA (acute kidney injury) Current Visit: Yes Status: Acute Plan to address problem: - non oliguric - will consult nephrology sooner rather than later - likely ATN component in setting of IVVD - nephrology consulted and evaluation ongoing - non oliguric (7) Discharge planning issues Current Visit: Yes Status: Acute Plan to address problem: - weaning tenuously not unexpectedly so far; if does not wean well may need LTAC evaluation but not at this point ...he is critically ill on life sustaining interventions including MVS and at high risk for further deterioration including ...34' CCT Subjective Date of service: 05/29/16 Principal diagnosis: Acute on Chronic Hypoxemic Respiratory Failure Interval history: Seen and examined at bedside; 24 hour events reviewed; nursing and respiratory care staff consulted; no adverse overnight events reported to me; remains on MVS ; sedate; still requiring levophed and at 4mics/min; not tolerating PSV trials though Objective Vital Signs - 12hr 05/28/16 05/28/16 05/28/16 23:24 23:30 23:45 Temperature Pulse Rate 104 H 102 H Pulse Rate [ Anterior Bilateral Throughout] Pulse Rate [ 105 H From Monitor] Respiratory 16 14 13 Rate Respiratory Rate [Anterior Bilateral Throughout] Blood Pressure 94/43 97/47 O2 Sat by Pulse 90 91 91 Oximetry 05/28/16 05/29/16 05/29/16 23:54 00:00 00:05 Temperature 98.0 F Pulse Rate 101 H 102 H Pulse Rate [ Anterior Bilateral Throughout] Pulse Rate [ From Monitor] Respiratory 13 Rate Respiratory Rate [Anterior Bilateral Throughout] Blood Pressure 94/45 94/45 O2 Sat by Pulse 91 100 Oximetry 05/29/16 05/29/16 05/29/16 00:15 00:30 00:45 Temperature Pulse Rate 101 H 103 H 102 H Pulse Rate [ Anterior Bilateral Throughout] Pulse Rate [ From Monitor] Respiratory 12 14 12 Rate Respiratory Rate [Anterior Bilateral Throughout] Blood Pressure 98/43 99/46 98/44 O2 Sat by Pulse 95 91 92 Oximetry 05/29/16 05/29/16 05/29/16 01:00 01:15 01:30 Temperature Pulse Rate 101 H 101 H 99 H Pulse Rate [ Anterior Bilateral Throughout] Pulse Rate [ From Monitor] Respiratory 11 L 10 L 14 Rate Respiratory Rate [Anterior Bilateral Throughout] Blood Pressure 99/45 97/42 104/45 O2 Sat by Pulse 92 91 92 Oximetry 05/29/16 05/29/16 05/29/16 01:45 02:00 02:12 Temperature Pulse Rate 112 H 108 H Pulse Rate [ 103 H Anterior Bilateral Throughout] Pulse Rate [ From Monitor] Respiratory 17 12 Rate Respiratory 16 Rate [Anterior Bilateral Throughout] Blood Pressure 120/59 105/47 O2 Sat by Pulse 84 89 Oximetry 05/29/16 05/29/16 05/29/16 02:15 02:22 02:30 Temperature Pulse Rate 104 H 100 H Pulse Rate [ 103 H Anterior Bilateral Throughout] Pulse Rate [ From Monitor] Respiratory 16 13 Rate Respiratory 15 Rate [Anterior Bilateral Throughout] Blood Pressure 96/45 103/50 O2 Sat by Pulse 93 100 Oximetry 05/29/16 05/29/16 05/29/16 02:43 02:45 03:00 Temperature Pulse Rate 99 H 100 H 100 H Pulse Rate [ Anterior Bilateral Throughout] Pulse Rate [ From Monitor] Respiratory 12 11 L 10 L Rate Respiratory Rate [Anterior Bilateral Throughout] Blood Pressure 105/47 104/51 95/45 O2 Sat by Pulse 100 97 92 Oximetry 05/29/16 05/29/16 05/29/16 03:15 03:30 03:45 Temperature Pulse Rate 99 H 99 H 100 H Pulse Rate [ Anterior Bilateral Throughout] Pulse Rate [ From Monitor] Respiratory 10 L 14 13 Rate Respiratory Rate [Anterior Bilateral Throughout] Blood Pressure 105/47 102/48 102/49 O2 Sat by Pulse 93 92 92 Oximetry 05/29/16 05/29/16 05/29/16 04:00 04:15 04:22 Temperature Pulse Rate 98 H 100 H 113 H Pulse Rate [ Anterior Bilateral Throughout] Pulse Rate [ 95 H From Monitor] Respiratory 11 L 11 L Rate Respiratory Rate [Anterior Bilateral Throughout] Blood Pressure 101/49 93/46 93/46 O2 Sat by Pulse 92 92 96 Oximetry 05/29/16 05/29/16 05/29/16 04:31 04:45 04:55 Temperature 98.5 F Pulse Rate 111 H 113 H Pulse Rate [ Anterior Bilateral Throughout] Pulse Rate [ From Monitor] Respiratory 15 17 Rate Respiratory Rate [Anterior Bilateral Throughout] Blood Pressure 122/63 122/63 O2 Sat by Pulse 99 82 L Oximetry 05/29/16 05/29/16 05/29/16 05:00 05:15 05:30 Temperature Pulse Rate 105 H 101 H 100 H Pulse Rate [ Anterior Bilateral Throughout] Pulse Rate [ From Monitor] Respiratory 13 15 14 Rate Respiratory Rate [Anterior Bilateral Throughout] Blood Pressure 103/38 94/46 97/47 O2 Sat by Pulse 93 91 92 Oximetry 05/29/16 05/29/16 05/29/16 05:45 05:59 06:00 Temperature Pulse Rate 97 H 97 H 97 H Pulse Rate [ Anterior Bilateral Throughout] Pulse Rate [ From Monitor] Respiratory 17 14 13 Rate Respiratory Rate [Anterior Bilateral Throughout] Blood Pressure 99/48 99/48 101/48 O2 Sat by Pulse 93 93 93 Oximetry 05/29/16 05/29/16 05/29/16 06:01 06:15 06:30 Temperature Pulse Rate 96 H 96 H 96 H Pulse Rate [ Anterior Bilateral Throughout] Pulse Rate [ From Monitor] Respiratory 14 16 11 L Rate Respiratory Rate [Anterior Bilateral Throughout] Blood Pressure 101/48 107/49 106/52 O2 Sat by Pulse 92 94 94 Oximetry 05/29/16 05/29/16 05/29/16 06:45 07:00 07:15 Temperature Pulse Rate 96 H 96 H 97 H Pulse Rate [ Anterior Bilateral Throughout] Pulse Rate [ From Monitor] Respiratory 13 14 14 Rate Respiratory Rate [Anterior Bilateral Throughout] Blood Pressure 113/54 112/51 117/57 O2 Sat by Pulse 93 93 94 Oximetry 05/29/16 05/29/16 05/29/16 07:30 07:45 08:00 Temperature 98.3 F Pulse Rate 96 H 95 H 95 H Pulse Rate [ Anterior Bilateral Throughout] Pulse Rate [ 96 H From Monitor] Respiratory 12 14 15 Rate Respiratory Rate [Anterior Bilateral Throughout] Blood Pressure 118/54 117/59 115/58 O2 Sat by Pulse 94 99 99 Oximetry 05/29/16 05/29/16 05/29/16 08:09 08:13 08:15 Temperature Pulse Rate 101 H 97 H Pulse Rate [ 101 H Anterior Bilateral Throughout] Pulse Rate [ From Monitor] Respiratory 15 Rate Respiratory 19 Rate [Anterior Bilateral Throughout] Blood Pressure 115/58 120/58 O2 Sat by Pulse 97 100 Oximetry 05/29/16 05/29/16 05/29/16 08:30 08:45 08:49 Temperature Pulse Rate 96 H 96 H 95 H Pulse Rate [ 95 H Anterior Bilateral Throughout] Pulse Rate [ From Monitor] Respiratory 13 17 16 Rate Respiratory 18 Rate [Anterior Bilateral Throughout] Blood Pressure 115/59 125/62 125/62 O2 Sat by Pulse 100 100 100 Oximetry 05/29/16 05/29/16 05/29/16 08:59 09:00 11:14 Temperature Pulse Rate 95 H 95 H 96 H Pulse Rate [ Anterior Bilateral Throughout] Pulse Rate [ From Monitor] Respiratory 16 14 Rate Respiratory Rate [Anterior Bilateral Throughout] Blood Pressure 125/62 118/58 109/54 O2 Sat by Pulse 100 100 98 Oximetry Constitutional: no acute distress, other (sedated) Eyes: non-icteric ENT: oropharynx moist Neck: supple, no lymphadenopathy Effort: mildly labored Ascultation: Bilateral: diminished breath sounds, rales Cardiovascular: regular rate and rhythm Gastrointestinal: normoactive bowel sounds, non-tender, other (distended, firm but not tense) Integumentary: normal Extremities: no cyanosis, no edema, pink and warm, pulses normal Neurologic: normal mental status, non-focal exam, pupils equal and round, motor strength normal and Psychiatric: other (sedated) CBC and BMP: 05/29/16 04:15 05/29/16 04:15 ABG, PT/INR, D-dimer: ABG POC ABG pH 7.285 (7.35-7.45) L 05/29/16 06:14 POC ABG pCO2 43.5 (35-45) 05/29/16 06:14 POC ABG pO2 63 (80-105) L 05/29/16 06:14 POC ABG HCO3 20.7 05/29/16 06:14 POC ABG Total CO2 22 05/29/16 06:14 POC ABG O2 Sat 89 05/29/16 06:14 PT/INR, D-dimer PT 13.4 Sec. (12.2-14.9) 05/25/16 13:38 INR 1.03 (0.87-1.13) 05/25/16 13:38 D-Dimer 239.48 ng/mlDDU (0-234) H 05/23/16 14:16 Abnormal lab findings: Abnormal Labs 05/23/16 05/23/16 05/23/16 06:02 09:35 11:22 WBC RBC Hgb Hct RDW Plt Count Seg Neuts % (Manual) Lymphocytes % (Manual) Lymphocytes # (Manual) D-Dimer Heparin Anti-Xa Level POC ABG pH POC ABG pCO2 POC ABG pO2 Sodium Chloride Carbon Dioxide BUN Creatinine Glucose POC Glucose 174 H 232 H Hemoglobin A1c 6.4 H Lactic Acid Calcium AST ALT Total Creatine Kinase Total Protein Albumin Urine Creatinine Crossmatch 05/23/16 05/23/16 05/23/16 14:16 16:07 22:23 WBC RBC Hgb Hct RDW Plt Count Seg Neuts % (Manual) Lymphocytes % (Manual) Lymphocytes # (Manual) D-Dimer 239.48 H Heparin Anti-Xa Level POC ABG pH POC ABG pCO2 POC ABG pO2 Sodium Chloride Carbon Dioxide BUN Creatinine Glucose POC Glucose 126 H 171 H Hemoglobin A1c Lactic Acid Calcium AST ALT Total Creatine Kinase Total Protein Albumin Urine Creatinine Crossmatch 05/24/16 05/24/16 05/24/16 08:08 08:08 08:19 WBC RBC 3.24 L Hgb 9.6 L Hct 28.6 L RDW 15.7 H Plt Count Seg Neuts % (Manual) 71.0 H Lymphocytes % (Manual) 7.0 L Lymphocytes # (Manual) 0.8 L D-Dimer Heparin Anti-Xa Level POC ABG pH POC ABG pCO2 POC ABG pO2 Sodium 132 L Chloride 93.9 L Carbon Dioxide 18 L BUN 39 H Creatinine Glucose 166 H POC Glucose 173 H Hemoglobin A1c Lactic Acid Calcium AST ALT Total Creatine Kinase Total Protein Albumin Urine Creatinine Crossmatch 05/24/16 05/24/16 05/24/16 11:55 17:15 22:18 WBC RBC Hgb Hct RDW Plt Count Seg Neuts % (Manual) Lymphocytes % (Manual) Lymphocytes # (Manual) D-Dimer Heparin Anti-Xa Level POC ABG pH POC ABG pCO2 POC ABG pO2 Sodium Chloride Carbon Dioxide BUN Creatinine Glucose POC Glucose 210 H 147 H 163 H Hemoglobin A1c Lactic Acid Calcium AST ALT Total Creatine Kinase Total Protein Albumin Urine Creatinine Crossmatch 05/25/16 05/25/16 05/25/16 08:43 13:38 14:19 WBC RBC Hgb 10.0 L Hct 30.4 L RDW Plt Count Seg Neuts % (Manual) Lymphocytes % (Manual) Lymphocytes # (Manual) D-Dimer Heparin Anti-Xa Level POC ABG pH POC ABG pCO2 POC ABG pO2 Sodium Chloride Carbon Dioxide BUN Creatinine Glucose POC Glucose 177 H 180 H Hemoglobin A1c Lactic Acid Calcium AST ALT Total Creatine Kinase Total Protein Albumin Urine Creatinine Crossmatch 05/25/16 05/25/16 05/25/16 16:16 16:25 21:32 WBC RBC Hgb Hct RDW Plt Count Seg Neuts % (Manual) Lymphocytes % (Manual) Lymphocytes # (Manual) D-Dimer Heparin Anti-Xa Level POC ABG pH POC ABG pCO2 34.3 L POC ABG pO2 114 H Sodium Chloride Carbon Dioxide BUN Creatinine Glucose POC Glucose 193 H 183 H Hemoglobin A1c Lactic Acid Calcium AST ALT Total Creatine Kinase Total Protein Albumin Urine Creatinine Crossmatch 05/26/16 05/26/16 05/26/16 00:06 07:42 10:17 WBC RBC Hgb Hct RDW Plt Count Seg Neuts % (Manual) Lymphocytes % (Manual) Lymphocytes # (Manual) D-Dimer Heparin Anti-Xa Level 1.23 H 0.98 H POC ABG pH POC ABG pCO2 POC ABG pO2 Sodium Chloride Carbon Dioxide BUN Creatinine Glucose POC Glucose 206 H Hemoglobin A1c Lactic Acid Calcium AST ALT Total Creatine Kinase Total Protein Albumin Urine Creatinine Crossmatch 05/26/16 05/26/16 05/26/16 11:57 12:38 13:52 WBC 19.7 H RBC 2.56 L Hgb 7.4 L Hct 23.2 L D RDW 15.8 H Plt Count Seg Neuts % (Manual) Lymphocytes % (Manual) Lymphocytes # (Manual) D-Dimer Heparin Anti-Xa Level POC ABG pH 7.298 L POC ABG pCO2 27.8 L POC ABG pO2 132 H Sodium Chloride Carbon Dioxide BUN Creatinine Glucose POC Glucose 338 H Hemoglobin A1c Lactic Acid Calcium AST ALT Total Creatine Kinase Total Protein Albumin Urine Creatinine Crossmatch 05/26/16 05/26/16 05/26/16 15:47 15:47 17:06 WBC RBC Hgb Hct RDW Plt Count Seg Neuts % (Manual) Lymphocytes % (Manual) Lymphocytes # (Manual) D-Dimer Heparin Anti-Xa Level 1.35 H POC ABG pH 7.108 L POC ABG pCO2 POC ABG pO2 287 H Sodium Chloride Carbon Dioxide BUN Creatinine Glucose POC Glucose Hemoglobin A1c Lactic Acid 9.0 H* Calcium AST ALT Total Creatine Kinase Total Protein Albumin Urine Creatinine Crossmatch 05/26/16 05/26/16 05/26/16 17:12 17:15 17:53 WBC RBC Hgb Hct RDW Plt Count Seg Neuts % (Manual) Lymphocytes % (Manual) Lymphocytes # (Manual) D-Dimer Heparin Anti-Xa Level POC ABG pH 7.061 L POC ABG pCO2 47.3 H POC ABG pO2 35 L Sodium Chloride Carbon Dioxide BUN Creatinine Glucose POC Glucose 275 H Hemoglobin A1c Lactic Acid Calcium AST ALT Total Creatine Kinase Total Protein Albumin Urine Creatinine Crossmatch See Detail 05/26/16 05/26/16 05/26/16 17:53 22:08 23:00 WBC RBC Hgb 6.7 L Hct 22.3 L RDW Plt Count Seg Neuts % (Manual) Lymphocytes % (Manual) Lymphocytes # (Manual) D-Dimer Heparin Anti-Xa Level POC ABG pH 7.195 L POC ABG pCO2 POC ABG pO2 129 H Sodium Chloride Carbon Dioxide BUN Creatinine Glucose POC Glucose 250 H Hemoglobin A1c Lactic Acid Calcium AST ALT Total Creatine Kinase Total Protein Albumin Urine Creatinine Crossmatch 05/27/16 05/27/16 05/27/16 00:26 01:00 05:13 WBC RBC Hgb 8.0 L Hct 24.6 L RDW Plt Count Seg Neuts % (Manual) Lymphocytes % (Manual) Lymphocytes # (Manual) D-Dimer Heparin Anti-Xa Level POC ABG pH 7.273 L POC ABG pCO2 POC ABG pO2 62 L Sodium Chloride Carbon Dioxide BUN Creatinine Glucose POC Glucose Hemoglobin A1c Lactic Acid Calcium AST ALT Total Creatine Kinase Total Protein Albumin Urine Creatinine Crossmatch 05/27/16 05/27/16 05/27/16 05:50 05:50 07:54 WBC RBC Hgb 7.6 L Hct 23.1 L RDW Plt Count Seg Neuts % (Manual) Lymphocytes % (Manual) Lymphocytes # (Manual) D-Dimer Heparin Anti-Xa Level POC ABG pH POC ABG pCO2 POC ABG pO2 Sodium Chloride Carbon Dioxide BUN Creatinine Glucose POC Glucose 385 H Hemoglobin A1c Lactic Acid 4.0 H* Calcium AST ALT Total Creatine Kinase Total Protein Albumin Urine Creatinine Crossmatch 05/27/16 05/27/16 05/27/16 08:30 11:57 16:04 WBC RBC Hgb Hct RDW Plt Count Seg Neuts % (Manual) Lymphocytes % (Manual) Lymphocytes # (Manual) D-Dimer Heparin Anti-Xa Level POC ABG pH POC ABG pCO2 POC ABG pO2 Sodium Chloride 94.8 L Carbon Dioxide BUN 61 H Creatinine 2.9 H D Glucose 411 H POC Glucose 394 H 292 H Hemoglobin A1c Lactic Acid Calcium 6.3 L D AST 7200 H ALT 4300 H Total Creatine Kinase Total Protein 4.5 L D Albumin 3.0 L Urine Creatinine Crossmatch 05/27/16 05/27/16 05/27/16 17:15 18:00 18:25 WBC RBC Hgb 7.5 L Hct 22.5 L RDW Plt Count Seg Neuts % (Manual) Lymphocytes % (Manual) Lymphocytes # (Manual) D-Dimer Heparin Anti-Xa Level POC ABG pH POC ABG pCO2 POC ABG pO2 Sodium Chloride Carbon Dioxide BUN Creatinine Glucose POC Glucose Hemoglobin A1c Lactic Acid Calcium AST 8515 H ALT 4517 H Total Creatine Kinase Total Protein 4.6 L Albumin 2.8 L Urine Creatinine 69.9 H Crossmatch 05/27/16 05/28/16 05/28/16 21:44 04:50 04:50 WBC 19.9 H RBC 2.66 L Hgb 7.6 L Hct 23.3 L RDW 15.4 H Plt Count 101 L Seg Neuts % (Manual) Lymphocytes % (Manual) Lymphocytes # (Manual) D-Dimer Heparin Anti-Xa Level POC ABG pH POC ABG pCO2 POC ABG pO2 Sodium Chloride Carbon Dioxide BUN 79 H Creatinine 3.9 H Glucose 166 H POC Glucose 176 H Hemoglobin A1c Lactic Acid Calcium 6.3 L AST 5609 H ALT 4060 H Total Creatine Kinase 929 H Total Protein 4.8 L Albumin 2.9 L Urine Creatinine Crossmatch 05/28/16 05/28/16 05/28/16 05:17 07:38 12:41 WBC RBC Hgb Hct RDW Plt Count Seg Neuts % (Manual) Lymphocytes % (Manual) Lymphocytes # (Manual) D-Dimer Heparin Anti-Xa Level POC ABG pH POC ABG pCO2 POC ABG pO2 115 H Sodium Chloride Carbon Dioxide BUN Creatinine Glucose POC Glucose 168 H 173 H Hemoglobin A1c Lactic Acid Calcium AST ALT Total Creatine Kinase Total Protein Albumin Urine Creatinine Crossmatch 05/28/16 05/28/16 05/29/16 16:12 21:45 04:15 WBC RBC Hgb Hct RDW Plt Count 71 L Seg Neuts % (Manual) Lymphocytes % (Manual) Lymphocytes # (Manual) D-Dimer Heparin Anti-Xa Level POC ABG pH POC ABG pCO2 POC ABG pO2 Sodium Chloride Carbon Dioxide BUN Creatinine Glucose POC Glucose 210 H 221 H Hemoglobin A1c Lactic Acid Calcium AST ALT Total Creatine Kinase Total Protein Albumin Urine Creatinine Crossmatch 05/29/16 05/29/16 05/29/16 04:15 06:14 07:28 WBC RBC Hgb Hct RDW Plt Count Seg Neuts % (Manual) Lymphocytes % (Manual) Lymphocytes # (Manual) D-Dimer Heparin Anti-Xa Level POC ABG pH 7.285 L POC ABG pCO2 POC ABG pO2 63 L Sodium Chloride Carbon Dioxide 21 L BUN 98 H Creatinine 4.7 H Glucose 220 H POC Glucose 232 H Hemoglobin A1c Lactic Acid Calcium 5.8 L* AST 1464 H ALT 2628 H Total Creatine Kinase 792 H Total Protein 4.5 L Albumin 2.8 L Urine Creatinine Crossmatch
--- NOTE | 2016-05-29 11:37 | Ultrasound Report ---
Renal ultrasound: The right renal length is 11.9 cm. The left renal length is 11.8 cm. The echogenicity of the parenchyma of both kidneys may be slightly increased. There is no thinning of the parenchyma. There is no solid mass. There is an echolucent 12 mm peripheral mass in the right kidney and a 3 cm similar mass in the superior left kidney. There is some question concerning a tiny echogenic focus also in the left kidney. There is no hydronephrosis in either kidney. Impressions: 1. Slightly echogenic kidneys raising suspicion of medical renal disease. 2. Bilateral simple renal cysts. 3. Questionable tiny nonobstructing left renal calculus.
[2016-05-29 12:14] LABS: ISTAT Base Excess -5; ISTAT HCO3 21.8; ISTAT PCO2 45.3 (35-45); ISTAT PH 7.291 (7.35-7.45); ISTAT PO2 91 (80-105); ISTAT SO2 96; ISTAT TCO2 23
--- NOTE | 2016-05-29 14:21 | Progress Note ---
Assessment and Plan Assessment and plan: Patient is a 80-year-old man who presented with shortness of breath and productive cough. Normally on 3 L of oxygen at home. Admitted as noted was no shortness of breath. Patient was also noted to have elevated d-dimer. Attempt to obtain CTA was delayed and was started on heparin drip until this could be ruled out. Patient subsequently decompensated with decreased blood pressure and hemoglobin are prior to this mario blood cells also to the ICU and was intubated for support. Continues to improve today within procedures have been started. * Acute on chronic hypoxic respiratory failure * Acute blood loss anemia * Acute kidney injury- creatning still increaseing, likely secondary to ATN. neprhology following * COPD exacerbation/+-asthma * Diabetes mellitus uncontrolled * Leukocytosis- could be secondary to steroids, r/o spesis * Hypertension * Tremor * Hyperlipidemia * Allergic rhinitis * Metabolic acidosis * Sinus tachycardia Plan * Intubated-mechanical ventilator support * ALIN, LABA * Fentanyl for sedation * lactate continues to improve * Consulted income tax consultant * Discussed with farm loan representative * S/P 2 UNIT PRBC * HGB Relatively stable * continue to wean pressors * continue emperic PPI Drip, * no overt evidence of GI bleed, but will need definitive study to r/o retroperitoneal bleed * DVT and GI prophylaxis History Interval history: Patient seen and examined. Follow up on respiratory failure, patient is still intubated. Overnight uneventful. Imaging, old records, testing, labs, nursing notes reviewed. Hospitalist Physical - Physical exam Narrative exam: GEN: Ill-appearing intubated sedated CVS: RRR, NORMAL S1S2 LUNGS/CHEST: NORMAL CHEST EXPANSION B, GOOD AIR ENTRY B ABD: SOFT NTND, GBS, NO REBOUND OR GUARDING NEURO: CN 2-12 GROSSLY INTACT, NO NEW FOCAL DEFICITS - Constitutional Vitals: Temp Pulse Resp BP Pulse Ox 98.4 F 100 H 18 92/53 97 05/29/16 11:55 05/29/16 14:18 05/29/16 14:18 05/29/16 11:58 05/29/16 14:03 General appearance: Present: no acute distress Results - Labs CBC & Chem 7: 05/29/16 04:15 05/29/16 04:15 Labs: Laboratory Last Values WBC 19.9 K/mm3 (4.5-11.0) H 05/28/16 04:50 RBC 2.66 M/mm3 (3.65-5.03) L 05/28/16 04:50 Hgb 7.6 gm/dl (11.8-15.2) L 05/28/16 04:50 Hct 23.3 % (35.5-45.6) L 05/28/16 04:50 MCV 88 fl (84-94) D 05/28/16 04:50 MCH 29 pg (28-32) 05/28/16 04:50 MCHC 33 % (32-34) 05/28/16 04:50 RDW 15.4 % (13.2-15.2) H 05/28/16 04:50 Plt Count 71 K/mm3 (140-440) L 05/29/16 04:15 Lymph % (Auto) 13.0 % (13.4-35.0) L 05/22/16 14:25 [place] % (Auto) 13.1 % (0.0-7.3) H 05/22/16 14:25 Eos % (Auto) 1.1 % (0.0-4.3) 05/22/16 14:25 Baso % (Auto) 0.6 % (0.0-1.8) 05/22/16 14:25 Lymph # 0.8 K/mm3 (1.2-5.4) L 05/22/16 14:25 [place] # 0.8 K/mm3 (0.0-0.8) 05/22/16 14:25 Eos # 0.1 K/mm3 (0.0-0.4) 05/22/16 14:25 Baso # 0.0 K/mm3 (0.0-0.1) 05/22/16 14:25 Add Manual Diff Complete 05/24/16 08:08 Total Counted 100 05/24/16 08:08 Seg Neutrophils % Still Photographer 05/24/16 08:08 Seg Neuts % (Manual) 71.0 % (40.0-70.0) H 05/24/16 08:08 Band Neutrophils % 19.0 % 05/24/16 08:08 Lymphocytes % (Manual) 7.0 % (13.4-35.0) L 05/24/16 08:08 Reactive Lymphs % (Man) 0 % 05/24/16 08:08 Monocytes % (Manual) 3.0 % (0.0-7.3) 05/24/16 08:08 Eosinophils % (Manual) 0 % (0.0-4.3) 05/24/16 08:08 Basophils % (Manual) 0 % (0.0-1.8) 05/24/16 08:08 Metamyelocytes % 0 % 05/24/16 08:08 Myelocytes % 0 % 05/24/16 08:08 Promyelocytes % 0 % 05/24/16 08:08 Blast Cells % 0 % 05/24/16 08:08 Nucleated RBC % Not Reportable 05/24/16 08:08 Seg Neutrophils # 4.4 K/mm3 (1.8-7.7) 05/22/16 14:25 Seg Neutrophils # Man 7.7 K/mm3 (1.8-7.7) 05/24/16 08:08 Band Neutrophils # 2.1 K/mm3 05/24/16 08:08 Lymphocytes # (Manual) 0.8 K/mm3 (1.2-5.4) L 05/24/16 08:08 Abs React Lymphs (Man) 0.0 K/mm3 05/24/16 08:08 Monocytes # (Manual) 0.3 K/mm3 (0.0-0.8) 05/24/16 08:08 Eosinophils # (Manual) 0.0 K/mm3 (0.0-0.4) 05/24/16 08:08 Basophils # (Manual) 0.0 K/mm3 (0.0-0.1) 05/24/16 08:08 Metamyelocytes # 0.0 K/mm3 05/24/16 08:08 Myelocytes # 0.0 K/mm3 05/24/16 08:08 Promyelocytes # 0.0 K/mm3 05/24/16 08:08 Blast Cells # 0.0 K/mm3 05/24/16 08:08 WBC Morphology Not Reportable 05/24/16 08:08 Hypersegmented Neuts Not Reportable 05/24/16 08:08 Hyposegmented Neuts Not Reportable 05/24/16 08:08 Hypogranular Neuts Not Reportable 05/24/16 08:08 Smudge Cells Not Reportable 05/24/16 08:08 Toxic Granulation Not Reportable 05/24/16 08:08 Toxic Vacuolation Not Reportable 05/24/16 08:08 Dohle Bodies Not Reportable 05/24/16 08:08 [place]-Huet Anomaly Not Reportable 05/24/16 08:08 Bari Rods Not Reportable 05/24/16 08:08 Platelet Estimate Not Reportable 05/24/16 08:08 Clumped Platelets Not Reportable 05/24/16 08:08 Plt Clumps, EDTA Not Reportable 05/24/16 08:08 Large Platelets Not Reportable 05/24/16 08:08 Giant Platelets Not Reportable 05/24/16 08:08 Platelet Satelliting Not Reportable 05/24/16 08:08 Plt Morphology Comment Not Reportable 05/24/16 08:08 RBC Morphology Not Reportable 05/24/16 08:08 Dimorphic RBCs Not Reportable 05/24/16 08:08 Polychromasia Not Reportable 05/24/16 08:08 Hypochromasia Not Reportable 05/24/16 08:08 Poikilocytosis Not Reportable 05/24/16 08:08 Anisocytosis 1+ 05/24/16 08:08 Microcytosis Not Reportable 05/24/16 08:08 Macrocytosis Not Reportable 05/24/16 08:08 Spherocytes Not Reportable 05/24/16 08:08 Pappenheimer Bodies Not Reportable 05/24/16 08:08 Sickle Cells Not Reportable 05/24/16 08:08 Target Cells Not Reportable 05/24/16 08:08 Tear Drop Cells Rare 05/24/16 08:08 Ovalocytes Not Reportable 05/24/16 08:08 Helmet Cells Not Reportable 05/24/16 08:08 [place]ushy Bodies Not Reportable 05/24/16 08:08 [place] Rings Not Reportable 05/24/16 08:08 [place] Cells Not Reportable 05/24/16 08:08 Bite Cells Not Reportable 05/24/16 08:08 Crenated Cell Not Reportable 05/24/16 08:08 Elliptocytes Not Reportable 05/24/16 08:08 Acanthocytes (Spur) Not Reportable 05/24/16 08:08 Rouleaux Not Reportable 05/24/16 08:08 Hemoglobin C Crystals Not Reportable 05/24/16 08:08 Schistocytes Not Reportable 05/24/16 08:08 Malaria parasites Not Reportable 05/24/16 08:08 Andrea Bodies Not Reportable 05/24/16 08:08 Hem Pathologist Commnt No 05/24/16 08:08 PT 13.4 Sec. (12.2-14.9) 05/25/16 13:38 INR 1.03 (0.87-1.13) 05/25/16 13:38 APTT 29.5 Sec. (24.2-36.6) 05/25/16 13:38 D-Dimer 239.48 ng/mlDDU (0-234) H 05/23/16 14:16 Heparin Anti-Xa Level 1.35 U.I./ml (0.3-0.7) H 05/26/16 15:47 POC ABG pH 7.291 (7.35-7.45) L 05/29/16 11:58 POC ABG pCO2 45.3 (35-45) H 05/29/16 11:58 POC ABG pO2 91 (80-105) 05/29/16 11:58 POC ABG HCO3 21.8 05/29/16 11:58 POC ABG Total CO2 23 05/29/16 11:58 POC ABG O2 Sat 96 05/29/16 11:58 POC ABG Base Excess -5 05/29/16 11:58 VBG pH 7.403 (7.320-7.420) 05/22/16 14:24 FiO2 35 % 05/29/16 11:58 Sodium 142 mmol/L (137-145) 05/29/16 04:15 Potassium 4.8 mmol/L (3.6-5.0) 05/29/16 04:15 Chloride 100.8 mmol/L (98-107) 05/29/16 04:15 Carbon Dioxide 21 mmol/L (22-30) L 05/29/16 04:15 Anion Gap 25 mmol/L 05/29/16 04:15 BUN 98 mg/dL (9-20) H 05/29/16 04:15 Creatinine 4.7 mg/dL (0.8-1.5) H 05/29/16 04:15 Estimated GFR 12 ml/min 05/29/16 04:15 BUN/Creatinine Ratio 20.85 % 05/29/16 04:15 Glucose 220 mg/dL (75-100) H 05/29/16 04:15 POC Glucose 196 (70-105) H 05/29/16 11:33 Hemoglobin A1c 6.4 % (4-6) H 05/23/16 06:02 Lactic Acid 2.0 mmol/L (0.7-2.0) 05/28/16 04:50 Calcium 5.8 mg/dL (8.4-10.2) L* 05/29/16 04:15 Total Bilirubin 0.3 mg/dL (0.1-1.2) 05/29/16 04:15 Direct Bilirubin 0.2 mg/dL (0-0.2) 05/27/16 18:25 Indirect Bilirubin 0.2 mg/dL 05/27/16 18:25 AST 1464 units/L (5-40) H 05/29/16 04:15 ALT 2628 units/L (7-56) H 05/29/16 04:15 Alkaline Phosphatase 69 units/L (35-129) 05/29/16 04:15 Total Creatine Kinase 792 units/L (55-170) H 05/29/16 04:15 CK-MB (CK-2) 2.1 ng/mL (0.0-4.0) 05/22/16 14:24 CK-MB (CK-2) Rel Index 3.9 (0-4) 05/22/16 14:24 Troponin T 0.023 ng/mL (0.00-0.029) 05/22/16 14:24 C-Reactive Protein 0.70 mg/dL (0.00-1.30) 05/26/16 15:47 NT-Pro-B Natriuret Pep 316.0 pg/mL (0-900) 05/22/16 14:24 Total Protein 4.5 g/dL (6.3-8.2) L 05/29/16 04:15 Albumin 2.8 g/dL (3.9-5) L 05/29/16 04:15 Albumin/Globulin Ratio 1.6 % 05/29/16 04:15 Urine Color Yellow (Yellow) 05/22/16 22:30 Urine Turbidity Clear (Clear) 05/22/16 22:30 Urine pH 5.0 (5.0-7.0) 05/22/16 22:30 Ur Specific [place] 1.016 (1.003-1.030) 05/22/16 22:30 Urine Protein 30 mg/dl mg/dL (Negative) 05/22/16 22:30 Urine Glucose (UA) Neg mg/dL (Negative) 05/22/16 22:30 Urine Ketones Tr mg/dL (Negative) 05/22/16 22:30 Urine Blood Neg (Negative) 05/22/16 22:30 Urine Nitrite Neg (Negative) 05/22/16 22:30 Urine Bilirubin Neg (Negative) 05/22/16 22:30 Urine Urobilinogen < 2.0 mg/dL (<2.0) 05/22/16 22:30 Ur Leukocyte Esterase Neg (Negative) 05/22/16 22:30 Urine WBC (Auto) 3.0 /HPF (0.0-6.0) 05/22/16 22:30 Urine RBC (Auto) 1.0 /HPF (0.0-6.0) 05/22/16 22:30 U Epithel Cells (Auto) < 1.0 /HPF (0-13.0) 05/22/16 22:30 Hyaline Casts 1 /LPF 05/22/16 22:30 Urine Mucus Few /HPF 05/22/16 22:30 Urine Creatinine 69.9 mg/dL (0.1-20.0) H 05/27/16 18:00 Urine Sodium 46 mEq/L 05/27/16 18:00 Blood Type O POSITIVE 05/26/16 17:53 Antibody Screen Negative 05/26/16 17:53 Crossmatch See Detail 05/26/16 17:53 - Imaging and Cardiology Chest x-ray: report reviewed
[2016-05-29] MEDS: SINGULAIR PO SCH (18:05)
[2016-05-30] MEDS: NOVOLOG SUB-Q SCH ×5 (00:33→22:32)
[2016-05-30] MEDS: LEVEMIR SUB-Q SCH ×2 (00:35→22:32)
[2016-05-30] MEDS: PROTONIX PO SCH ×3 (00:37→22:14)
[2016-05-30] MEDS: ZOCOR PO SCH ×2 (01:16→22:14)
[2016-05-30] MEDS: DUONEB 0.5 MG-3 MG/3 ML SOLN IH SCH ×4 (01:16→19:56)
[2016-05-30] MEDS: ARTIFICIAL TEARS OPHTH OINT OU PRN (01:17)
[2016-05-30] MEDS: LEVOPHED DRIP 4 MG/NS 250 ML 250 ML IV SCH ×2 (01:18→05:30)
[2016-05-30] MEDS: MYLICON FEEDTUBE SCH ×5 (01:21→22:37)
[2016-05-30] MEDS: REGLAN IV SCH ×2 (03:00→14:59)
[2016-05-30 04:59] LABS: ISTAT Base Excess -6; ISTAT HCO3 20.7; ISTAT PCO2 41.9 (35-45); ISTAT PH 7.303 (7.35-7.45); ISTAT PO2 91 (80-105); ISTAT SO2 96; ISTAT TCO2 22
[2016-05-30 06:10] LABS: Mean Corpuscular HGB Conc 32 % (32-34); Mean Corpuscular Hemoglobin 29 pg (28-32); Mean Corpuscular Volume 90 fl (84-94); Red Blood Count 2.45 M/mm3 (3.65-5.03); Red Cell Distribution Width 16.1 % (13.2-15.2); White Blood Count 15.4 K/mm3 (4.5-11.0)
[2016-05-30 06:13] LABS: Platelet Count 51 K/mm3 (140-440)
[2016-05-30 06:28] LABS: Albumin 2.8 g/dL (3.9-5); Albumin/Globulin Ratio 1.8 %; Bilirubin,Total 0.3 mg/dL (0.1-1.2); Chloride 100.9 mmol/L (98-107); Phosphorous 6.6 mg/dL (2.5-4.5); Potassium 5.5 mmol/L (3.6-5.0); Total Protein 4.4 g/dL (6.3-8.2)
[2016-05-30 06:32] LABS: Calcium 5.5 mg/dL (8.4-10.2)
[2016-05-30 06:40] LABS: BUN/Creatinine Ratio 21.32
[2016-05-30 07:26] LABS: Basophils % (Manual) 0 % (0.0-1.8); Blastocytes % (Manual) 0 %; Eosinophils % (Manual) 0 % (0.0-4.3)
[2016-05-30 07:27] LABS: Anisocytosis 1+; Hypochromasia 1+
[2016-05-30 07:28] LABS: Diff Status Complete; Elliptocytes Rare; Large Platelets Rare; Platelet Estimate Consistent w Auto; Polychromasia Rare
[2016-05-30] MEDS ORDERED: NACL 0.9% 500 ML 500 ML IV ONE (08:11)
[2016-05-30] MEDS: PULMICORT IH SCH ×2 (08:20→19:56)
[2016-05-30] MEDS: LEVOPHED 8 MG in NACL 0.9% 250ML 242 ML IV SCH ×3 (09:00→22:33)
--- NOTE | 2016-05-30 09:45 | Progress Note ---
Assessment and Plan - Patient Problems (1) RUBIA (acute kidney injury) Current Visit: Yes Status: Acute Plan to address problem: Acute Kidney Injury superimposed on CKD stage 3 in the setting of hypotension and anemia. Renal function continue to decline. Patient remain on levophed. Patient is oliguric. D/w his daughter Luzmaria over the phone regarding the treatment options for Acute renal failure associated with hyperkalemia. Recommended hemodialysis. Explained the indications, benefits and risks involved in hemodialysis. She agreed to proceed with hemodialysis. Vascular consulted for placement of temporary hemodialysis catheter. (2) Shock Current Visit: Yes Status: Acute Plan to address problem: On levophed. (3) Lactic acidosis Current Visit: Yes Status: Acute (4) Acute on chronic respiratory failure with hypoxemia Current Visit: Yes Status: Acute Plan to address problem: On vent. (5) Anemia Current Visit: Yes Status: Acute (6) Shock liver Current Visit: Yes Status: Acute Plan to address problem: LFTs improving. Subjective Date of service: 05/30/16 Principal diagnosis: Acute on Chronic Hypoxemic Respiratory Failure Interval history: Patient remain on the vent. Objective - Vital Signs Vital signs: Vital Signs - 12hr 05/29/16 05/29/16 05/29/16 22:00 22:15 22:30 Pulse Rate 105 H 105 H 105 H Pulse Rate [ Anterior Bilateral Throughout] Pulse Rate [ From Monitor] Respiratory 15 15 17 Rate Respiratory Rate [Anterior Bilateral Throughout] Blood Pressure 101/42 100/40 100/40 O2 Sat by Pulse 96 96 96 Oximetry 05/29/16 05/29/16 05/29/16 22:45 22:57 23:00 Pulse Rate 105 H 105 H 106 H Pulse Rate [ Anterior Bilateral Throughout] Pulse Rate [ From Monitor] Respiratory 15 17 14 Rate Respiratory Rate [Anterior Bilateral Throughout] Blood Pressure 106/40 106/40 99/42 O2 Sat by Pulse 97 97 97 Oximetry 05/29/16 05/29/16 05/29/16 23:15 23:21 23:30 Pulse Rate 105 H 105 H 105 H Pulse Rate [ Anterior Bilateral Throughout] Pulse Rate [ From Monitor] Respiratory 17 15 13 Rate Respiratory Rate [Anterior Bilateral Throughout] Blood Pressure 107/40 107/40 107/41 O2 Sat by Pulse 96 97 97 Oximetry 05/29/16 05/29/16 05/30/16 23:40 23:45 00:00 Pulse Rate 104 H 102 H 104 H Pulse Rate [ Anterior Bilateral Throughout] Pulse Rate [ 103 H From Monitor] Respiratory 12 16 Rate Respiratory Rate [Anterior Bilateral Throughout] Blood Pressure 107/41 112/45 107/44 O2 Sat by Pulse 97 100 97 Oximetry 05/30/16 05/30/16 05/30/16 00:15 00:30 00:45 Pulse Rate 105 H 105 H 104 H Pulse Rate [ Anterior Bilateral Throughout] Pulse Rate [ From Monitor] Respiratory 17 16 16 Rate Respiratory Rate [Anterior Bilateral Throughout] Blood Pressure 109/44 106/43 110/44 O2 Sat by Pulse 97 97 97 Oximetry 05/30/16 05/30/16 05/30/16 01:00 01:15 01:16 Pulse Rate 105 H 104 H Pulse Rate [ 104 H Anterior Bilateral Throughout] Pulse Rate [ From Monitor] Respiratory 18 15 Rate Respiratory 16 Rate [Anterior Bilateral Throughout] Blood Pressure 110/41 107/46 O2 Sat by Pulse 97 97 Oximetry 05/30/16 05/30/16 05/30/16 01:26 01:31 01:45 Pulse Rate 108 H 107 H Pulse Rate [ 102 H Anterior Bilateral Throughout] Pulse Rate [ From Monitor] Respiratory 14 16 Rate Respiratory 16 Rate [Anterior Bilateral Throughout] Blood Pressure 98/44 110/46 O2 Sat by Pulse 94 96 Oximetry 05/30/16 05/30/16 05/30/16 02:00 02:15 02:30 Pulse Rate 109 H 108 H 108 H Pulse Rate [ Anterior Bilateral Throughout] Pulse Rate [ From Monitor] Respiratory 16 17 15 Rate Respiratory Rate [Anterior Bilateral Throughout] Blood Pressure 108/42 110/43 105/42 O2 Sat by Pulse 95 96 97 Oximetry 05/30/16 05/30/16 05/30/16 02:45 03:00 03:05 Pulse Rate 105 H 106 H 107 H Pulse Rate [ Anterior Bilateral Throughout] Pulse Rate [ From Monitor] Respiratory 17 16 13 Rate Respiratory Rate [Anterior Bilateral Throughout] Blood Pressure 106/40 109/41 109/41 O2 Sat by Pulse 97 97 97 Oximetry 05/30/16 05/30/16 05/30/16 03:15 03:30 03:45 Pulse Rate 105 H 104 H 108 H Pulse Rate [ Anterior Bilateral Throughout] Pulse Rate [ From Monitor] Respiratory 16 16 16 Rate Respiratory Rate [Anterior Bilateral Throughout] Blood Pressure 108/44 106/44 106/44 O2 Sat by Pulse 97 96 96 Oximetry 05/30/16 05/30/16 05/30/16 03:54 04:00 04:01 Pulse Rate 108 H 111 H Pulse Rate [ Anterior Bilateral Throughout] Pulse Rate [ 97 H From Monitor] Respiratory 18 12 Rate Respiratory Rate [Anterior Bilateral Throughout] Blood Pressure 100/45 106/44 O2 Sat by Pulse 95 98 93 Oximetry 05/30/16 05/30/16 05/30/16 04:15 04:30 04:45 Pulse Rate 108 H 104 H 97 H Pulse Rate [ Anterior Bilateral Throughout] Pulse Rate [ From Monitor] Respiratory 18 17 15 Rate Respiratory Rate [Anterior Bilateral Throughout] Blood Pressure 111/46 110/44 110/44 O2 Sat by Pulse 97 97 97 Oximetry 05/30/16 05/30/16 05/30/16 05:00 05:15 05:30 Pulse Rate 102 H 72 99 H Pulse Rate [ Anterior Bilateral Throughout] Pulse Rate [ From Monitor] Respiratory 17 27 H 15 Rate Respiratory Rate [Anterior Bilateral Throughout] Blood Pressure 101/48 81/35 116/51 O2 Sat by Pulse 98 97 98 Oximetry 05/30/16 05/30/16 05/30/16 05:45 06:00 06:15 Pulse Rate 99 H 100 H 99 H Pulse Rate [ Anterior Bilateral Throughout] Pulse Rate [ From Monitor] Respiratory 15 14 15 Rate Respiratory Rate [Anterior Bilateral Throughout] Blood Pressure 115/50 121/50 123/50 O2 Sat by Pulse 97 98 97 Oximetry 05/30/16 05/30/16 05/30/16 06:30 06:45 07:00 Pulse Rate 98 H 97 H 97 H Pulse Rate [ Anterior Bilateral Throughout] Pulse Rate [ From Monitor] Respiratory 15 16 16 Rate Respiratory Rate [Anterior Bilateral Throughout] Blood Pressure 116/50 121/49 118/48 O2 Sat by Pulse 98 98 97 Oximetry 05/30/16 05/30/16 05/30/16 07:15 07:30 08:20 Pulse Rate 97 H 96 H Pulse Rate [ 97 H Anterior Bilateral Throughout] Pulse Rate [ From Monitor] Respiratory 16 13 Rate Respiratory 25 H Rate [Anterior Bilateral Throughout] Blood Pressure 117/49 116/50 O2 Sat by Pulse 97 98 Oximetry - General Appearance General appearance: well-developed, well-nourished, sedated on ventilator, intubated EENT: PERRL Neck: supple Respiratory: Present: Other (coarse breath sounds) Cardiology: regular, S1S2, no murmurs Gastrointestinal: normoactive bowel sounds, no tenderness, no distended, no guarding Integumentary: no rash, warm and dry Neurologic: other (sedated) Musculoskeletal: other (no edema) Psychiatric: other (sedated) - Lab 05/30/16 05:30 05/30/16 05:30 Most recent lab results Calcium 5.5 mg/dL (8.4-10.2) L* 05/30/16 05:30 Phosphorus 6.6 mg/dL (2.5-4.5) H 05/30/16 05:30 Urine Creatinine 69.9 mg/dL (0.1-20.0) H 05/27/16 18:00 Urine Sodium 46 mEq/L 05/27/16 18:00
[2016-05-30] MEDS: VITAMIN D2 PO SCH (09:53)
--- NOTE | 2016-05-30 11:31 | Progress Note ---
Assessment and Plan - Patient Problems (1) Acute exacerbation of chronic obstructive pulmonary disease (COPD) Current Visit: Yes Status: Acute Plan to address problem: - continue supplemental oxygen to keep sats >/= 92% - continue empiric AB's and follow cultures - transferred to ICU - continue ALIN and LABA - continue systemic steroids slow taper - complete VTE w/up - repeat ABG - intubated yesterday and on MVS - reduced set minute ventilation prior - added brovana - continue daily PSV trials - will hold on adjusting minute volumes acutely and accept current pH - pH slightly improved and breathing less labored - Hold on weaning till more stable (2) Acute on chronic respiratory failure with hypoxemia Current Visit: Yes Status: Acute Plan to address problem: - as above - continue aspiration precautions / VAP bundles - continue bronchodilators and pulmonary toilet - resume fentanyl drip for sedation/analgesia - get KUB and decompress abdomen if necessary (will give simethicone in short term +/- reglan) - added seroquel and prn xanax for anxiolysis (3) Obesity Current Visit: Yes Status: Acute Plan to address problem: - weight loss - outpatient PSG (4) Sepsis syndrome Current Visit: Yes Status: Acute Plan to address problem: - CRP unremarkable - Lactate trending down - hold on broadening AB's - get labs and r/o significant bleeding occultly - aggressive volume resuscitation - central venous access obtained - stopped alkalanized fluids - switch to more conservative volume management at this point - continue to follow off AB's - continue to wean levophed to keep MAP > 60-65mmHg (5) Anemia Current Visit: Yes Status: Acute Plan to address problem: - suspect inappropriate rise in Hb post 2 units PRBC's is due to hemodilution - will follow and hold on transfusion except Hb < 7.0 at this point - GI evaluation noted - change to bid PPI dosing - H&H holding - CBC in am - CBC reviewd and Hb 7.0 - PRBC's ordered earlier (6) RUBIA (acute kidney injury) Current Visit: Yes Status: Acute Plan to address problem: - will consult nephrology sooner rather than later - likely ATN component in setting of IVVD - nephrology consulted and evaluation ongoing - oliguria developing now - will get vascath - discussed with personal financial advisor and will likely need SMOKE TESTER (7) Thrombocytopenia Current Visit: Yes Status: Acute Plan to address problem: - likely related to sepsis and azotemia - stop heparinoids - get HIT assay (8) Discharge planning issues Current Visit: Yes Status: Acute Plan to address problem: - weaning tenuously not unexpectedly so far; if does not wean well may need LTAC evaluation but not at this point ...he is critically ill on life sustaining interventions including MVS and at high risk for further deterioration including ...35' CCT Subjective Date of service: 05/30/16 Principal diagnosis: Acute on Chronic Hypoxemic Respiratory Failure; Severe Sepsis Interval history: seen and examined at bedside; 24hour events reviewed; nursing and respiratory care staff consulted; no adverse overnight events reported to me; remains on MVS ; oliguria setting in; arousable; levophed at 20mics/min now; no emesis or overt aspiration and no gross bleeding; thrombocytopenia noted Objective Vital Signs - 12hr 05/29/16 05/29/16 05/30/16 23:40 23:45 00:00 Temperature Pulse Rate 104 H 102 H 104 H Pulse Rate [ Anterior Bilateral Throughout] Pulse Rate [ 103 H From Monitor] Respiratory 12 16 Rate Respiratory Rate [Anterior Bilateral Throughout] Blood Pressure 107/41 112/45 107/44 O2 Sat by Pulse 97 100 97 Oximetry 05/30/16 05/30/16 05/30/16 00:15 00:30 00:45 Temperature Pulse Rate 105 H 105 H 104 H Pulse Rate [ Anterior Bilateral Throughout] Pulse Rate [ From Monitor] Respiratory 17 16 16 Rate Respiratory Rate [Anterior Bilateral Throughout] Blood Pressure 109/44 106/43 110/44 O2 Sat by Pulse 97 97 97 Oximetry 05/30/16 05/30/16 05/30/16 01:00 01:15 01:16 Temperature Pulse Rate 105 H 104 H Pulse Rate [ 104 H Anterior Bilateral Throughout] Pulse Rate [ From Monitor] Respiratory 18 15 Rate Respiratory 16 Rate [Anterior Bilateral Throughout] Blood Pressure 110/41 107/46 O2 Sat by Pulse 97 97 Oximetry 05/30/16 05/30/16 05/30/16 01:26 01:31 01:45 Temperature Pulse Rate 108 H 107 H Pulse Rate [ 102 H Anterior Bilateral Throughout] Pulse Rate [ From Monitor] Respiratory 14 16 Rate Respiratory 16 Rate [Anterior Bilateral Throughout] Blood Pressure 98/44 110/46 O2 Sat by Pulse 94 96 Oximetry 05/30/16 05/30/16 05/30/16 02:00 02:15 02:30 Temperature Pulse Rate 109 H 108 H 108 H Pulse Rate [ Anterior Bilateral Throughout] Pulse Rate [ From Monitor] Respiratory 16 17 15 Rate Respiratory Rate [Anterior Bilateral Throughout] Blood Pressure 108/42 110/43 105/42 O2 Sat by Pulse 95 96 97 Oximetry 05/30/16 05/30/16 05/30/16 02:45 03:00 03:05 Temperature Pulse Rate 105 H 106 H 107 H Pulse Rate [ Anterior Bilateral Throughout] Pulse Rate [ From Monitor] Respiratory 17 16 13 Rate Respiratory Rate [Anterior Bilateral Throughout] Blood Pressure 106/40 109/41 109/41 O2 Sat by Pulse 97 97 97 Oximetry 05/30/16 05/30/16 05/30/16 03:15 03:30 03:45 Temperature Pulse Rate 105 H 104 H 108 H Pulse Rate [ Anterior Bilateral Throughout] Pulse Rate [ From Monitor] Respiratory 16 16 16 Rate Respiratory Rate [Anterior Bilateral Throughout] Blood Pressure 108/44 106/44 106/44 O2 Sat by Pulse 97 96 96 Oximetry 05/30/16 05/30/16 05/30/16 03:54 04:00 04:01 Temperature Pulse Rate 108 H 111 H Pulse Rate [ Anterior Bilateral Throughout] Pulse Rate [ 97 H From Monitor] Respiratory 18 12 Rate Respiratory Rate [Anterior Bilateral Throughout] Blood Pressure 100/45 106/44 O2 Sat by Pulse 95 98 93 Oximetry 05/30/16 05/30/16 05/30/16 04:15 04:30 04:45 Temperature Pulse Rate 108 H 104 H 97 H Pulse Rate [ Anterior Bilateral Throughout] Pulse Rate [ From Monitor] Respiratory 18 17 15 Rate Respiratory Rate [Anterior Bilateral Throughout] Blood Pressure 111/46 110/44 110/44 O2 Sat by Pulse 97 97 97 Oximetry 05/30/16 05/30/16 05/30/16 05:00 05:15 05:30 Temperature Pulse Rate 102 H 72 99 H Pulse Rate [ Anterior Bilateral Throughout] Pulse Rate [ From Monitor] Respiratory 17 27 H 15 Rate Respiratory Rate [Anterior Bilateral Throughout] Blood Pressure 101/48 81/35 116/51 O2 Sat by Pulse 98 97 98 Oximetry 05/30/16 05/30/16 05/30/16 05:45 06:00 06:15 Temperature Pulse Rate 99 H 100 H 99 H Pulse Rate [ Anterior Bilateral Throughout] Pulse Rate [ From Monitor] Respiratory 15 14 15 Rate Respiratory Rate [Anterior Bilateral Throughout] Blood Pressure 115/50 121/50 123/50 O2 Sat by Pulse 97 98 97 Oximetry 05/30/16 05/30/16 05/30/16 06:30 06:45 07:00 Temperature Pulse Rate 98 H 97 H 97 H Pulse Rate [ Anterior Bilateral Throughout] Pulse Rate [ From Monitor] Respiratory 15 16 16 Rate Respiratory Rate [Anterior Bilateral Throughout] Blood Pressure 116/50 121/49 118/48 O2 Sat by Pulse 98 98 97 Oximetry 05/30/16 05/30/16 05/30/16 07:15 07:30 07:43 Temperature Pulse Rate 97 H 96 H 96 H Pulse Rate [ Anterior Bilateral Throughout] Pulse Rate [ From Monitor] Respiratory 16 13 15 Rate Respiratory Rate [Anterior Bilateral Throughout] Blood Pressure 117/49 116/50 116/50 O2 Sat by Pulse 97 98 97 Oximetry 05/30/16 05/30/16 05/30/16 07:45 08:00 08:10 Temperature Pulse Rate 96 H 96 H 96 H Pulse Rate [ Anterior Bilateral Throughout] Pulse Rate [ From Monitor] Respiratory 16 14 Rate Respiratory Rate [Anterior Bilateral Throughout] Blood Pressure 120/47 118/48 121/47 O2 Sat by Pulse 98 98 98 Oximetry 05/30/16 05/30/16 05/30/16 08:15 08:20 08:30 Temperature Pulse Rate 96 H 93 H Pulse Rate [ 97 H 92 H Anterior Bilateral Throughout] Pulse Rate [ From Monitor] Respiratory 14 16 Rate Respiratory 25 H 16 Rate [Anterior Bilateral Throughout] Blood Pressure 116/51 95/45 O2 Sat by Pulse 98 100 Oximetry 05/30/16 05/30/16 05/30/16 08:45 09:00 09:15 Temperature Pulse Rate 94 H 98 H 96 H Pulse Rate [ Anterior Bilateral Throughout] Pulse Rate [ From Monitor] Respiratory 17 15 14 Rate Respiratory Rate [Anterior Bilateral Throughout] Blood Pressure 101/42 101/44 106/43 O2 Sat by Pulse 99 97 98 Oximetry 05/30/16 05/30/16 05/30/16 09:30 09:45 10:00 Temperature Pulse Rate 98 H 97 H 98 H Pulse Rate [ Anterior Bilateral Throughout] Pulse Rate [ From Monitor] Respiratory 15 16 16 Rate Respiratory Rate [Anterior Bilateral Throughout] Blood Pressure 112/48 115/47 121/48 O2 Sat by Pulse 98 98 98 Oximetry 05/30/16 05/30/16 05/30/16 10:15 10:55 11:10 Temperature 98.9 F 98.2 F Pulse Rate 100 H 101 H 102 H Pulse Rate [ Anterior Bilateral Throughout] Pulse Rate [ From Monitor] Respiratory 15 18 18 Rate Respiratory Rate [Anterior Bilateral Throughout] Blood Pressure 114/46 121/46 114/42 O2 Sat by Pulse 97 96 96 Oximetry Constitutional: no acute distress, other (sedated) Eyes: non-icteric ENT: oropharynx moist Neck: supple, no lymphadenopathy Effort: mildly labored Ascultation: Bilateral: diminished breath sounds, rales Cardiovascular: regular rate and rhythm Gastrointestinal: normoactive bowel sounds, non-tender, other (distended, firm but not tense) Integumentary: normal Extremities: no cyanosis, no edema, pink and warm, pulses normal Neurologic: normal mental status, non-focal exam, pupils equal and round, motor strength normal and Psychiatric: other (sedated) CBC and BMP: 05/30/16 05:30 05/30/16 05:30 ABG, PT/INR, D-dimer: ABG POC ABG pH 7.303 (7.35-7.45) L 05/30/16 04:53 POC ABG pCO2 41.9 (35-45) 05/30/16 04:53 POC ABG pO2 91 (80-105) 05/30/16 04:53 POC ABG HCO3 20.7 05/30/16 04:53 POC ABG Total CO2 22 05/30/16 04:53 POC ABG O2 Sat 96 05/30/16 04:53 PT/INR, D-dimer PT 13.4 Sec. (12.2-14.9) 05/25/16 13:38 INR 1.03 (0.87-1.13) 05/25/16 13:38 D-Dimer 239.48 ng/mlDDU (0-234) H 05/23/16 14:16 Abnormal lab findings: Abnormal Labs 05/23/16 05/23/16 05/23/16 06:02 09:35 11:22 WBC RBC Hgb Hct RDW Plt Count Seg Neuts % (Manual) Lymphocytes % (Manual) Nucleated RBC % Seg Neutrophils # Man Lymphocytes # (Manual) D-Dimer Heparin Anti-Xa Level POC ABG pH POC ABG pCO2 POC ABG pO2 Sodium Potassium Chloride Carbon Dioxide BUN Creatinine Glucose POC Glucose 174 H 232 H Hemoglobin A1c 6.4 H Lactic Acid Calcium Phosphorus AST ALT Total Creatine Kinase Total Protein Albumin Urine Creatinine Crossmatch 05/23/16 05/23/16 05/23/16 14:16 16:07 22:23 WBC RBC Hgb Hct RDW Plt Count Seg Neuts % (Manual) Lymphocytes % (Manual) Nucleated RBC % Seg Neutrophils # Man Lymphocytes # (Manual) D-Dimer 239.48 H Heparin Anti-Xa Level POC ABG pH POC ABG pCO2 POC ABG pO2 Sodium Potassium Chloride Carbon Dioxide BUN Creatinine Glucose POC Glucose 126 H 171 H Hemoglobin A1c Lactic Acid Calcium Phosphorus AST ALT Total Creatine Kinase Total Protein Albumin Urine Creatinine Crossmatch 05/24/16 05/24/16 05/24/16 08:08 08:08 08:19 WBC RBC 3.24 L Hgb 9.6 L Hct 28.6 L RDW 15.7 H Plt Count Seg Neuts % (Manual) 71.0 H Lymphocytes % (Manual) 7.0 L Nucleated RBC % Seg Neutrophils # Man Lymphocytes # (Manual) 0.8 L D-Dimer Heparin Anti-Xa Level POC ABG pH POC ABG pCO2 POC ABG pO2 Sodium 132 L Potassium Chloride 93.9 L Carbon Dioxide 18 L BUN 39 H Creatinine Glucose 166 H POC Glucose 173 H Hemoglobin A1c Lactic Acid Calcium Phosphorus AST ALT Total Creatine Kinase Total Protein Albumin Urine Creatinine Crossmatch 05/24/16 05/24/16 05/24/16 11:55 17:15 22:18 WBC RBC Hgb Hct RDW Plt Count Seg Neuts % (Manual) Lymphocytes % (Manual) Nucleated RBC % Seg Neutrophils # Man Lymphocytes # (Manual) D-Dimer Heparin Anti-Xa Level POC ABG pH POC ABG pCO2 POC ABG pO2 Sodium Potassium Chloride Carbon Dioxide BUN Creatinine Glucose POC Glucose 210 H 147 H 163 H Hemoglobin A1c Lactic Acid Calcium Phosphorus AST ALT Total Creatine Kinase Total Protein Albumin Urine Creatinine Crossmatch 05/25/16 05/25/16 05/25/16 08:43 13:38 14:19 WBC RBC Hgb 10.0 L Hct 30.4 L RDW Plt Count Seg Neuts % (Manual) Lymphocytes % (Manual) Nucleated RBC % Seg Neutrophils # Man Lymphocytes # (Manual) D-Dimer Heparin Anti-Xa Level POC ABG pH POC ABG pCO2 POC ABG pO2 Sodium Potassium Chloride Carbon Dioxide BUN Creatinine Glucose POC Glucose 177 H 180 H Hemoglobin A1c Lactic Acid Calcium Phosphorus AST ALT Total Creatine Kinase Total Protein Albumin Urine Creatinine Crossmatch 05/25/16 05/25/16 05/25/16 16:16 16:25 21:32 WBC RBC Hgb Hct RDW Plt Count Seg Neuts % (Manual) Lymphocytes % (Manual) Nucleated RBC % Seg Neutrophils # Man Lymphocytes # (Manual) D-Dimer Heparin Anti-Xa Level POC ABG pH POC ABG pCO2 34.3 L POC ABG pO2 114 H Sodium Potassium Chloride Carbon Dioxide BUN Creatinine Glucose POC Glucose 193 H 183 H Hemoglobin A1c Lactic Acid Calcium Phosphorus AST ALT Total Creatine Kinase Total Protein Albumin Urine Creatinine Crossmatch 05/26/16 05/26/16 05/26/16 00:06 07:42 10:17 WBC RBC Hgb Hct RDW Plt Count Seg Neuts % (Manual) Lymphocytes % (Manual) Nucleated RBC % Seg Neutrophils # Man Lymphocytes # (Manual) D-Dimer Heparin Anti-Xa Level 1.23 H 0.98 H POC ABG pH POC ABG pCO2 POC ABG pO2 Sodium Potassium Chloride Carbon Dioxide BUN Creatinine Glucose POC Glucose 206 H Hemoglobin A1c Lactic Acid Calcium Phosphorus AST ALT Total Creatine Kinase Total Protein Albumin Urine Creatinine Crossmatch 05/26/16 05/26/16 05/26/16 11:57 12:38 13:52 WBC 19.7 H RBC 2.56 L Hgb 7.4 L Hct 23.2 L D RDW 15.8 H Plt Count Seg Neuts % (Manual) Lymphocytes % (Manual) Nucleated RBC % Seg Neutrophils # Man Lymphocytes # (Manual) D-Dimer Heparin Anti-Xa Level POC ABG pH 7.298 L POC ABG pCO2 27.8 L POC ABG pO2 132 H Sodium Potassium Chloride Carbon Dioxide BUN Creatinine Glucose POC Glucose 338 H Hemoglobin A1c Lactic Acid Calcium Phosphorus AST ALT Total Creatine Kinase Total Protein Albumin Urine Creatinine Crossmatch 05/26/16 05/26/16 05/26/16 15:47 15:47 17:06 WBC RBC Hgb Hct RDW Plt Count Seg Neuts % (Manual) Lymphocytes % (Manual) Nucleated RBC % Seg Neutrophils # Man Lymphocytes # (Manual) D-Dimer Heparin Anti-Xa Level 1.35 H POC ABG pH 7.108 L POC ABG pCO2 POC ABG pO2 287 H Sodium Potassium Chloride Carbon Dioxide BUN Creatinine Glucose POC Glucose Hemoglobin A1c Lactic Acid 9.0 H* Calcium Phosphorus AST ALT Total Creatine Kinase Total Protein Albumin Urine Creatinine Crossmatch 05/26/16 05/26/16 05/26/16 17:12 17:15 17:53 WBC RBC Hgb Hct RDW Plt Count Seg Neuts % (Manual) Lymphocytes % (Manual) Nucleated RBC % Seg Neutrophils # Man Lymphocytes # (Manual) D-Dimer Heparin Anti-Xa Level POC ABG pH 7.061 L POC ABG pCO2 47.3 H POC ABG pO2 35 L Sodium Potassium Chloride Carbon Dioxide BUN Creatinine Glucose POC Glucose 275 H Hemoglobin A1c Lactic Acid Calcium Phosphorus AST ALT Total Creatine Kinase Total Protein Albumin Urine Creatinine Crossmatch See Detail 05/26/16 05/26/16 05/26/16 17:53 22:08 23:00 WBC RBC Hgb 6.7 L Hct 22.3 L RDW Plt Count Seg Neuts % (Manual) Lymphocytes % (Manual) Nucleated RBC % Seg Neutrophils # Man Lymphocytes # (Manual) D-Dimer Heparin Anti-Xa Level POC ABG pH 7.195 L POC ABG pCO2 POC ABG pO2 129 H Sodium Potassium Chloride Carbon Dioxide BUN Creatinine Glucose POC Glucose 250 H Hemoglobin A1c Lactic Acid Calcium Phosphorus AST ALT Total Creatine Kinase Total Protein Albumin Urine Creatinine Crossmatch 05/27/16 05/27/16 05/27/16 00:26 01:00 05:13 WBC RBC Hgb 8.0 L Hct 24.6 L RDW Plt Count Seg Neuts % (Manual) Lymphocytes % (Manual) Nucleated RBC % Seg Neutrophils # Man Lymphocytes # (Manual) D-Dimer Heparin Anti-Xa Level POC ABG pH 7.273 L POC ABG pCO2 POC ABG pO2 62 L Sodium Potassium Chloride Carbon Dioxide BUN Creatinine Glucose POC Glucose Hemoglobin A1c Lactic Acid Calcium Phosphorus AST ALT Total Creatine Kinase Total Protein Albumin Urine Creatinine Crossmatch 05/27/16 05/27/16 05/27/16 05:50 05:50 07:54 WBC RBC Hgb 7.6 L Hct 23.1 L RDW Plt Count Seg Neuts % (Manual) Lymphocytes % (Manual) Nucleated RBC % Seg Neutrophils # Man Lymphocytes # (Manual) D-Dimer Heparin Anti-Xa Level POC ABG pH POC ABG pCO2 POC ABG pO2 Sodium Potassium Chloride Carbon Dioxide BUN Creatinine Glucose POC Glucose 385 H Hemoglobin A1c Lactic Acid 4.0 H* Calcium Phosphorus AST ALT Total Creatine Kinase Total Protein Albumin Urine Creatinine Crossmatch 05/27/16 05/27/16 05/27/16 08:30 11:57 16:04 WBC RBC Hgb Hct RDW Plt Count Seg Neuts % (Manual) Lymphocytes % (Manual) Nucleated RBC % Seg Neutrophils # Man Lymphocytes # (Manual) D-Dimer Heparin Anti-Xa Level POC ABG pH POC ABG pCO2 POC ABG pO2 Sodium Potassium Chloride 94.8 L Carbon Dioxide BUN 61 H Creatinine 2.9 H D Glucose 411 H POC Glucose 394 H 292 H Hemoglobin A1c Lactic Acid Calcium 6.3 L D Phosphorus AST 7200 H ALT 4300 H Total Creatine Kinase Total Protein 4.5 L D Albumin 3.0 L Urine Creatinine Crossmatch 05/27/16 05/27/16 05/27/16 17:15 18:00 18:25 WBC RBC Hgb 7.5 L Hct 22.5 L RDW Plt Count Seg Neuts % (Manual) Lymphocytes % (Manual) Nucleated RBC % Seg Neutrophils # Man Lymphocytes # (Manual) D-Dimer Heparin Anti-Xa Level POC ABG pH POC ABG pCO2 POC ABG pO2 Sodium Potassium Chloride Carbon Dioxide BUN Creatinine Glucose POC Glucose Hemoglobin A1c Lactic Acid Calcium Phosphorus AST 8515 H ALT 4517 H Total Creatine Kinase Total Protein 4.6 L Albumin 2.8 L Urine Creatinine 69.9 H Crossmatch 05/27/16 05/28/16 05/28/16 21:44 04:50 04:50 WBC 19.9 H RBC 2.66 L Hgb 7.6 L Hct 23.3 L RDW 15.4 H Plt Count 101 L Seg Neuts % (Manual) Lymphocytes % (Manual) Nucleated RBC % Seg Neutrophils # Man Lymphocytes # (Manual) D-Dimer Heparin Anti-Xa Level POC ABG pH POC ABG pCO2 POC ABG pO2 Sodium Potassium Chloride Carbon Dioxide BUN 79 H Creatinine 3.9 H Glucose 166 H POC Glucose 176 H Hemoglobin A1c Lactic Acid Calcium 6.3 L Phosphorus AST 5609 H ALT 4060 H Total Creatine Kinase 929 H Total Protein 4.8 L Albumin 2.9 L Urine Creatinine Crossmatch 05/28/16 05/28/16 05/28/16 05:17 07:38 12:41 WBC RBC Hgb Hct RDW Plt Count Seg Neuts % (Manual) Lymphocytes % (Manual) Nucleated RBC % Seg Neutrophils # Man Lymphocytes # (Manual) D-Dimer Heparin Anti-Xa Level POC ABG pH POC ABG pCO2 POC ABG pO2 115 H Sodium Potassium Chloride Carbon Dioxide BUN Creatinine Glucose POC Glucose 168 H 173 H Hemoglobin A1c Lactic Acid Calcium Phosphorus AST ALT Total Creatine Kinase Total Protein Albumin Urine Creatinine Crossmatch 05/28/16 05/28/16 05/29/16 16:12 21:45 04:15 WBC RBC Hgb Hct RDW Plt Count 71 L Seg Neuts % (Manual) Lymphocytes % (Manual) Nucleated RBC % Seg Neutrophils # Man Lymphocytes # (Manual) D-Dimer Heparin Anti-Xa Level POC ABG pH POC ABG pCO2 POC ABG pO2 Sodium Potassium Chloride Carbon Dioxide BUN Creatinine Glucose POC Glucose 210 H 221 H Hemoglobin A1c Lactic Acid Calcium Phosphorus AST ALT Total Creatine Kinase Total Protein Albumin Urine Creatinine Crossmatch 05/29/16 05/29/16 05/29/16 04:15 06:14 07:28 WBC RBC Hgb Hct RDW Plt Count Seg Neuts % (Manual) Lymphocytes % (Manual) Nucleated RBC % Seg Neutrophils # Man Lymphocytes # (Manual) D-Dimer Heparin Anti-Xa Level POC ABG pH 7.285 L POC ABG pCO2 POC ABG pO2 63 L Sodium Potassium Chloride Carbon Dioxide 21 L BUN 98 H Creatinine 4.7 H Glucose 220 H POC Glucose 232 H Hemoglobin A1c Lactic Acid Calcium 5.8 L* Phosphorus AST 1464 H ALT 2628 H Total Creatine Kinase 792 H Total Protein 4.5 L Albumin 2.8 L Urine Creatinine Crossmatch 05/29/16 05/29/16 05/29/16 11:33 11:58 15:22 WBC RBC Hgb Hct RDW Plt Count Seg Neuts % (Manual) Lymphocytes % (Manual) Nucleated RBC % Seg Neutrophils # Man Lymphocytes # (Manual) D-Dimer Heparin Anti-Xa Level POC ABG pH 7.291 L POC ABG pCO2 45.3 H POC ABG pO2 Sodium Potassium Chloride Carbon Dioxide BUN Creatinine Glucose POC Glucose 196 H 184 H Hemoglobin A1c Lactic Acid Calcium Phosphorus AST ALT Total Creatine Kinase Total Protein Albumin Urine Creatinine Crossmatch 05/29/16 05/30/16 05/30/16 22:16 04:53 05:30 WBC RBC Hgb Hct RDW Plt Count Seg Neuts % (Manual) Lymphocytes % (Manual) Nucleated RBC % Seg Neutrophils # Man Lymphocytes # (Manual) D-Dimer Heparin Anti-Xa Level POC ABG pH 7.303 L POC ABG pCO2 POC ABG pO2 Sodium Potassium 5.5 H Chloride Carbon Dioxide BUN 113 H Creatinine 5.3 H Glucose 240 H POC Glucose 274 H Hemoglobin A1c Lactic Acid Calcium 5.5 L* Phosphorus 6.6 H AST 380 H ALT 1647 H Total Creatine Kinase 2131 H Total Protein 4.4 L Albumin 2.8 L Urine Creatinine Crossmatch 05/30/16 05/30/16 05/30/16 05:30 06:01 08:25 WBC 15.4 H RBC 2.45 L Hgb 7.0 L Hct 22.0 L RDW 16.1 H Plt Count 51 L Seg Neuts % (Manual) Lymphocytes % (Manual) 9.0 L Nucleated RBC % 7.0 H Seg Neutrophils # Man 8.5 H Lymphocytes # (Manual) D-Dimer Heparin Anti-Xa Level POC ABG pH POC ABG pCO2 POC ABG pO2 Sodium Potassium Chloride Carbon Dioxide BUN Creatinine Glucose POC Glucose 268 H Hemoglobin A1c Lactic Acid Calcium Phosphorus AST ALT Total Creatine Kinase Total Protein Albumin Urine Creatinine Crossmatch See Detail
[2016-05-30] MEDS ORDERED: PROCRIT IV PRN (12:06)
[2016-05-30] MEDS ORDERED: NACL 0.9% 1000 ML 100 ML IV PRN (12:06)
[2016-05-30] MEDS ORDERED: ALBURX 25% (ALBUMIN) IV PRN (12:06)
--- NOTE | 2016-05-30 13:23 | Progress Note ---
Assessment and Plan Assessment and plan: Patient is a 80-year-old man with a history of type 2 diabetes mellitus, hypertension, dyslipidemia and chronic respiratory failure on 3 L oxygen at home due to COPD who presented with shortness breath and a cough on 05/22/2016. He was admitted for COPD exacerbation, He was placed on BiPAP. Initial chest x-ray was unremarkable. Imaging study was ordered but the machine was broken until 05/27/2016 but he unable to get now because patient was unstable and intubated on May 26, 2016. So, he was treated with iv heparin. During his hospital course hematocrit started dropping, requiring blood transfusion and consultation with gastroenterology. Also, Renal function is deteriorating questionable needing dialysis per Dr. Nice. * Acute on chronic hypoxic respiratory failure * Acute blood loss anemia * Acute kidney injury- creatning still increaseing, likely secondary to ATN. neprhology following * COPD exacerbation/+-asthma * Diabetes mellitus uncontrolled * Leukocytosis- could be secondary to steroids, r/o sepsis * Hypertension * Tremor * Hyperlipidemia * Allergic rhinitis * Metabolic acidosis * Sinus tachycardia Plan * Intubated-mechanical ventilator support * ALIN, LABA * Fentanyl for sedation * lactate continues to improve * Consulted planning management it specialist * Discussed with merchandise shopper * S/P 2 UNIT PRBC * HGB Relatively stable * continue to wean pressors * continue emperic PPI Drip, * no overt evidence of GI bleed, but will need definitive study to r/o retroperitoneal bleed==to unstable for test currently, on 20 mcg of Levophed, intubated. * DVT and GI prophylaxis History Interval history: Patient seen and examined. Follow up on respiratory failure, patient is still intubated. Overnight uneventful. Imaging, old records, testing, labs, nursing notes reviewed. Hospitalist Physical - Physical exam Narrative exam: GEN: Ill-appearing intubated sedated CVS: regular tachycardia, NORMAL S1S2 LUNGS/CHEST: NORMAL CHEST EXPANSION B, GOOD AIR ENTRY B ABD: SOFT, more distended with hypoactive, NO REBOUND OR GUARDING NEURO: CN 2-12 GROSSLY INTACT, sedated - Constitutional Vitals: Temp Pulse Resp BP Pulse Ox 98.4 F 105 H 16 121/50 97 05/30/16 13:10 05/30/16 13:10 05/30/16 13:10 05/30/16 13:10 05/30/16 13:10 General appearance: Present: no acute distress Results - Labs CBC & Chem 7: 05/30/16 05:30 05/30/16 05:30 Labs: Laboratory Last Values WBC 15.4 K/mm3 (4.5-11.0) H 05/30/16 05:30 RBC 2.45 M/mm3 (3.65-5.03) L 05/30/16 05:30 Hgb 7.0 gm/dl (11.8-15.2) L 05/30/16 05:30 Hct 22.0 % (35.5-45.6) L 05/30/16 05:30 MCV 90 fl (84-94) 05/30/16 05:30 MCH 29 pg (28-32) 05/30/16 05:30 MCHC 32 % (32-34) 05/30/16 05:30 RDW 16.1 % (13.2-15.2) H 05/30/16 05:30 Plt Count 51 K/mm3 (140-440) L 05/30/16 05:30 Lymph % (Auto) 13.0 % (13.4-35.0) L 05/22/16 14:25 [place] % (Auto) 13.1 % (0.0-7.3) H 05/22/16 14:25 Eos % (Auto) 1.1 % (0.0-4.3) 05/22/16 14:25 Baso % (Auto) 0.6 % (0.0-1.8) 05/22/16 14:25 Lymph # 0.8 K/mm3 (1.2-5.4) L 05/22/16 14:25 [place] # 0.8 K/mm3 (0.0-0.8) 05/22/16 14:25 Eos # 0.1 K/mm3 (0.0-0.4) 05/22/16 14:25 Baso # 0.0 K/mm3 (0.0-0.1) 05/22/16 14:25 Add Manual Diff Complete 05/30/16 05:30 Total Counted 100 05/30/16 05:30 Seg Neutrophils % Mall Manager 05/30/16 05:30 Seg Neuts % (Manual) 55.0 % (40.0-70.0) 05/30/16 05:30 Band Neutrophils % 30.0 % 05/30/16 05:30 Lymphocytes % (Manual) 9.0 % (13.4-35.0) L 05/30/16 05:30 Reactive Lymphs % (Man) 1.0 % 05/30/16 05:30 Monocytes % (Manual) 5.0 % (0.0-7.3) 05/30/16 05:30 Eosinophils % (Manual) 0 % (0.0-4.3) 05/30/16 05:30 Basophils % (Manual) 0 % (0.0-1.8) 05/30/16 05:30 Metamyelocytes % 0 % 05/30/16 05:30 Myelocytes % 0 % 05/30/16 05:30 Promyelocytes % 0 % 05/30/16 05:30 Blast Cells % 0 % 05/30/16 05:30 Nucleated RBC % 7.0 % (0.0-0.9) H 05/30/16 05:30 Seg Neutrophils # 4.4 K/mm3 (1.8-7.7) 05/22/16 14:25 Seg Neutrophils # Man 8.5 K/mm3 (1.8-7.7) H 05/30/16 05:30 Band Neutrophils # 4.6 K/mm3 05/30/16 05:30 Lymphocytes # (Manual) 1.4 K/mm3 (1.2-5.4) 05/30/16 05:30 Abs React Lymphs (Man) 0.2 K/mm3 05/30/16 05:30 Monocytes # (Manual) 0.8 K/mm3 (0.0-0.8) 05/30/16 05:30 Eosinophils # (Manual) 0.0 K/mm3 (0.0-0.4) 05/30/16 05:30 Basophils # (Manual) 0.0 K/mm3 (0.0-0.1) 05/30/16 05:30 Metamyelocytes # 0.0 K/mm3 05/30/16 05:30 Myelocytes # 0.0 K/mm3 05/30/16 05:30 Promyelocytes # 0.0 K/mm3 05/30/16 05:30 Blast Cells # 0.0 K/mm3 05/30/16 05:30 WBC Morphology Not Reportable 05/30/16 05:30 Hypersegmented Neuts Not Reportable 05/30/16 05:30 Hyposegmented Neuts Not Reportable 05/30/16 05:30 Hypogranular Neuts Not Reportable 05/30/16 05:30 Smudge Cells Not Reportable 05/30/16 05:30 Toxic Granulation Not Reportable 05/30/16 05:30 Toxic Vacuolation Not Reportable 05/30/16 05:30 Dohle Bodies Not Reportable 05/30/16 05:30 Pelger-Huet Anomaly Not Reportable 05/30/16 05:30 Bari Rods Not Reportable 05/30/16 05:30 Platelet Estimate Consistent w auto 05/30/16 05:30 Clumped Platelets Not Reportable 05/30/16 05:30 Plt Clumps, EDTA Not Reportable 05/30/16 05:30 Large Platelets Rare 05/30/16 05:30 Giant Platelets Not Reportable 05/30/16 05:30 Platelet Satelliting Not Reportable 05/30/16 05:30 Plt Morphology Comment Not Reportable 05/30/16 05:30 RBC Morphology Not Reportable 05/30/16 05:30 Dimorphic RBCs Not Reportable 05/30/16 05:30 Polychromasia Rare 05/30/16 05:30 Hypochromasia 1+ 05/30/16 05:30 Poikilocytosis Not Reportable 05/30/16 05:30 Anisocytosis 1+ 05/30/16 05:30 Microcytosis Not Reportable 05/30/16 05:30 Macrocytosis Not Reportable 05/30/16 05:30 Spherocytes Not Reportable 05/30/16 05:30 Pappenheimer Bodies Not Reportable 05/30/16 05:30 Sickle Cells Not Reportable 05/30/16 05:30 Target Cells Not Reportable 05/30/16 05:30 Tear Drop Cells Not Reportable 05/30/16 05:30 Ovalocytes Not Reportable 05/30/16 05:30 Helmet Cells Not Reportable 05/30/16 05:30 [place] Bodies Not Reportable 05/30/16 05:30 [place] Rings Not Reportable 05/30/16 05:30 [place] Cells Not Reportable 05/30/16 05:30 Bite Cells Not Reportable 05/30/16 05:30 Crenated Cell Not Reportable 05/30/16 05:30 Elliptocytes Rare 05/30/16 05:30 Acanthocytes (Spur) Not Reportable 05/30/16 05:30 Rouleaux Not Reportable 05/30/16 05:30 Hemoglobin C Crystals Not Reportable 05/30/16 05:30 Schistocytes Not Reportable 05/30/16 05:30 Malaria parasites Not Reportable 05/30/16 05:30 Andrea Bodies Not Reportable 05/30/16 05:30 Hem Pathologist Commnt No 05/30/16 05:30 PT 13.4 Sec. (12.2-14.9) 05/25/16 13:38 INR 1.03 (0.87-1.13) 05/25/16 13:38 APTT 29.5 Sec. (24.2-36.6) 05/25/16 13:38 D-Dimer 239.48 ng/mlDDU (0-234) H 05/23/16 14:16 Heparin Anti-Xa Level 1.35 U.I./ml (0.3-0.7) H 05/26/16 15:47 POC ABG pH 7.303 (7.35-7.45) L 05/30/16 04:53 POC ABG pCO2 41.9 (35-45) 05/30/16 04:53 POC ABG pO2 91 (80-105) 05/30/16 04:53 POC ABG HCO3 20.7 05/30/16 04:53 POC ABG Total CO2 22 05/30/16 04:53 POC ABG O2 Sat 96 05/30/16 04:53 POC ABG Base Excess -6 05/30/16 04:53 VBG pH 7.403 (7.320-7.420) 05/22/16 14:24 FiO2 35 % 05/30/16 04:53 Sodium 138 mmol/L (137-145) 05/30/16 05:30 Potassium 5.5 mmol/L (3.6-5.0) H 05/30/16 05:30 Chloride 100.9 mmol/L (98-107) 05/30/16 05:30 Carbon Dioxide 22 mmol/L (22-30) 05/30/16 05:30 Anion Gap 21 mmol/L 05/30/16 05:30 BUN 113 mg/dL (9-20) H 05/30/16 05:30 Creatinine 5.3 mg/dL (0.8-1.5) H 05/30/16 05:30 Estimated GFR 10 ml/min 05/30/16 05:30 BUN/Creatinine Ratio 21.32 % 05/30/16 05:30 Glucose 240 mg/dL (75-100) H 05/30/16 05:30 POC Glucose 268 (70-105) H 05/30/16 06:01 Hemoglobin A1c 6.4 % (4-6) H 05/23/16 06:02 Lactic Acid 2.0 mmol/L (0.7-2.0) 05/28/16 04:50 Calcium 5.5 mg/dL (8.4-10.2) L* 05/30/16 05:30 Phosphorus 6.6 mg/dL (2.5-4.5) H 05/30/16 05:30 Total Bilirubin 0.3 mg/dL (0.1-1.2) 05/30/16 05:30 Direct Bilirubin 0.2 mg/dL (0-0.2) 05/27/16 18:25 Indirect Bilirubin 0.2 mg/dL 05/27/16 18:25 AST 380 units/L (5-40) H 05/30/16 05:30 ALT 1647 units/L (7-56) H 05/30/16 05:30 Alkaline Phosphatase 92 units/L (35-129) 05/30/16 05:30 Total Creatine Kinase 2131 units/L (55-170) H 05/30/16 05:30 CK-MB (CK-2) 2.1 ng/mL (0.0-4.0) 05/22/16 14:24 CK-MB (CK-2) Rel Index 3.9 (0-4) 05/22/16 14:24 Troponin T 0.023 ng/mL (0.00-0.029) 05/22/16 14:24 C-Reactive Protein 0.70 mg/dL (0.00-1.30) 05/26/16 15:47 NT-Pro-B Natriuret Pep 316.0 pg/mL (0-900) 05/22/16 14:24 Total Protein 4.4 g/dL (6.3-8.2) L 05/30/16 05:30 Albumin 2.8 g/dL (3.9-5) L 05/30/16 05:30 Albumin/Globulin Ratio 1.8 % 05/30/16 05:30 Urine Color Yellow (Yellow) 05/22/16 22:30 Urine Turbidity Clear (Clear) 05/22/16 22:30 Urine pH 5.0 (5.0-7.0) 05/22/16 22:30 Ur Specific [place] 1.016 (1.003-1.030) 05/22/16 22:30 Urine Protein 30 mg/dl mg/dL (Negative) 05/22/16 22:30 Urine Glucose (UA) Neg mg/dL (Negative) 05/22/16 22:30 Urine Ketones Tr mg/dL (Negative) 05/22/16 22:30 Urine Blood Neg (Negative) 05/22/16 22:30 Urine Nitrite Neg (Negative) 05/22/16 22:30 Urine Bilirubin Neg (Negative) 05/22/16 22:30 Urine Urobilinogen < 2.0 mg/dL (<2.0) 05/22/16 22:30 Ur Leukocyte Esterase Neg (Negative) 05/22/16 22:30 Urine WBC (Auto) 3.0 /HPF (0.0-6.0) 05/22/16 22:30 Urine RBC (Auto) 1.0 /HPF (0.0-6.0) 05/22/16 22:30 U Epithel Cells (Auto) < 1.0 /HPF (0-13.0) 05/22/16 22:30 Hyaline Casts 1 /LPF 05/22/16 22:30 Urine Mucus Few /HPF 05/22/16 22:30 Urine Creatinine 69.9 mg/dL (0.1-20.0) H 05/27/16 18:00 Urine Sodium 46 mEq/L 05/27/16 18:00 Blood Type O POSITIVE 05/30/16 08:25 Antibody Screen Negative 05/30/16 08:25 Crossmatch See Detail 05/30/16 08:25
--- NOTE | 2016-05-30 14:54 | Operative Report ---
Operative Report Operative Report: EXAM: ULTRASOUND-GUIDED PLACEMENT OF VAS-CATH CLINICAL INDICATION: ACUTE RENAL FAILURE REQUIRING DIALYSIS ACCESS DATE: 05/30/2016 PROCEDURE: Following an explanation of the risks, benefits and alternatives; written informed consent was obtained. The procedure was performed at bedside in the ICU. Given the patient's low platelets, a decision was made to place a femoral Vas-Cath. The patient's right groin was evaluated with ultrasound and a widely patent right common femoral vein was identified. The patient's right groin was prepped and draped in the usual sterile fashion. 1% lidocaine was used for anesthesia. Under ultrasound guidance, the right common femoral vein was cannulated with a 7 cm 18-gauge needle. A 0.035 guidewire was advanced centrally easily. The needle was removed. Following serial dilation, a 30 cm dialysis catheter was placed over the guidewire and advanced centrally easily. Nonpulsatile blood return from all 3 ports. Ultrasound imaging performed at the conclusion of the catheter placement demonstrated placement of the catheter within the vein. The catheter was flushed with sterile saline and securely fastened of the skin surface using 2-0 nylon suture. A sterile dressing was then applied. The patient tolerated the procedure well. There were no immediate post procedure complications. IMPRESSION: Ultrasound-guided placement of Vas-Cath via the right common femoral vein.
[2016-05-30] MEDS: HEPARIN IV PRN (18:50)
[2016-05-30] MEDS: SINGULAIR PO SCH (19:00)
[2016-05-30] MEDS: NACL 0.9% 1000 ML 1,000 ML IV SCH (22:19)
[2016-05-30] MEDS: DILAUDID IV PRN (22:20)
[2016-05-31] MEDS: DILAUDID IV PRN ×4 (02:32→19:49)
[2016-05-31] MEDS: REGLAN IV SCH ×2 (02:33→15:10)
[2016-05-31] MEDS: MYLICON FEEDTUBE SCH ×2 (02:33→09:48)
[2016-05-31] MEDS: DUONEB 0.5 MG-3 MG/3 ML SOLN IH SCH ×4 (04:02→19:36)
[2016-05-31 06:12] LABS: Hematocrit 31.9 % (35.5-45.6); Hemoglobin 10.3 gm/dl (11.8-15.2); Mean Corpuscular HGB Conc 32 % (32-34); Mean Corpuscular Hemoglobin 29 pg (28-32); Mean Corpuscular Volume 88 fl (84-94); Red Blood Count 3.61 M/mm3 (3.65-5.03); Red Cell Distribution Width 15.6 % (13.2-15.2)
[2016-05-31 06:13] LABS: Platelet Count 42 K/mm3 (140-440)
[2016-05-31 06:24] LABS: ISTAT Base Excess -3; ISTAT HCO3 23.3; ISTAT PCO2 45.2 (35-45); ISTAT PO2 100 (80-105); ISTAT SO2 97; ISTAT TCO2 25
[2016-05-31 06:36] LABS: Albumin 2.7 g/dL (3.9-5); Albumin/Globulin Ratio 1.5 %; BUN/Creatinine Ratio 21.38; Bilirubin,Total 0.4 mg/dL (0.1-1.2); Potassium 5.1 mmol/L (3.6-5.0); Total Protein 4.5 g/dL (6.3-8.2)
--- NOTE | 2016-05-31 09:00 | Progress Note ---
Assessment and Plan - Patient Problems (1) RUBIA (acute kidney injury) Current Visit: Yes Status: Acute Plan to address problem: Acute Kidney Injury superimposed on CKD stage 3 in the setting of hypotension and anemia. Patient was started on hemodialysis yesterday due to worsening renal function, oliguria and Hyperkalemia. Patient remain on levophed. Monitor for COLLISION ESTIMATOR needs. D/w his son who was at the bedside. (2) Shock Current Visit: Yes Status: Acute Plan to address problem: On levophed. (3) Lactic acidosis Current Visit: Yes Status: Acute (4) Acute on chronic respiratory failure with hypoxemia Current Visit: Yes Status: Acute Plan to address problem: On vent. (5) Anemia Current Visit: Yes Status: Acute Plan to address problem: S/p PRBC. (6) Shock liver Current Visit: Yes Status: Acute Plan to address problem: LFTs improving. Subjective Date of service: 05/31/16 Principal diagnosis: Acute on Chronic Hypoxemic Respiratory Failure Interval history: Patient remain on the vent. Objective - Vital Signs Vital signs: Vital Signs - 12hr 05/30/16 05/30/16 05/30/16 21:00 21:15 21:30 Temperature Pulse Rate 106 H 105 H 105 H Pulse Rate [ Anterior Bilateral Throughout] Respiratory 17 17 16 Rate Respiratory Rate [Anterior Bilateral Throughout] Blood Pressure 131/61 130/58 131/58 O2 Sat by Pulse 99 99 98 Oximetry 05/30/16 05/30/16 05/30/16 21:45 22:00 22:15 Temperature Pulse Rate 106 H 103 H 102 H Pulse Rate [ Anterior Bilateral Throughout] Respiratory 14 14 17 Rate Respiratory Rate [Anterior Bilateral Throughout] Blood Pressure 134/59 133/58 133/59 O2 Sat by Pulse 99 99 99 Oximetry 05/30/16 05/30/16 05/30/16 22:30 22:45 23:00 Temperature Pulse Rate 102 H 102 H 102 H Pulse Rate [ Anterior Bilateral Throughout] Respiratory 15 14 17 Rate Respiratory Rate [Anterior Bilateral Throughout] Blood Pressure 133/60 132/57 132/60 O2 Sat by Pulse 99 99 99 Oximetry 05/30/16 05/30/16 05/30/16 23:15 23:25 23:30 Temperature Pulse Rate 102 H 99 H 103 H Pulse Rate [ Anterior Bilateral Throughout] Respiratory 16 17 Rate Respiratory Rate [Anterior Bilateral Throughout] Blood Pressure 137/58 137/58 138/59 O2 Sat by Pulse 99 99 99 Oximetry 05/30/16 05/31/16 05/31/16 23:45 00:00 00:15 Temperature Pulse Rate 101 H 103 H 103 H Pulse Rate [ Anterior Bilateral Throughout] Respiratory 14 18 15 Rate Respiratory Rate [Anterior Bilateral Throughout] Blood Pressure 135/55 135/60 129/59 O2 Sat by Pulse 99 99 99 Oximetry 05/31/16 05/31/16 05/31/16 00:30 00:45 01:00 Temperature Pulse Rate 103 H 103 H 103 H Pulse Rate [ Anterior Bilateral Throughout] Respiratory 16 16 16 Rate Respiratory Rate [Anterior Bilateral Throughout] Blood Pressure 132/59 131/58 131/58 O2 Sat by Pulse 99 99 99 Oximetry 05/31/16 05/31/16 05/31/16 01:15 01:30 01:45 Temperature Pulse Rate 102 H 102 H 102 H Pulse Rate [ Anterior Bilateral Throughout] Respiratory 14 16 18 Rate Respiratory Rate [Anterior Bilateral Throughout] Blood Pressure 128/59 130/56 131/57 O2 Sat by Pulse 99 99 99 Oximetry 05/31/16 05/31/16 05/31/16 02:00 02:15 02:30 Temperature Pulse Rate 111 H 118 H 119 H Pulse Rate [ Anterior Bilateral Throughout] Respiratory 14 18 16 Rate Respiratory Rate [Anterior Bilateral Throughout] Blood Pressure 134/67 131/68 143/62 O2 Sat by Pulse 97 98 99 Oximetry 05/31/16 05/31/16 05/31/16 02:45 03:00 03:15 Temperature Pulse Rate 118 H 116 H 119 H Pulse Rate [ Anterior Bilateral Throughout] Respiratory 18 17 17 Rate Respiratory Rate [Anterior Bilateral Throughout] Blood Pressure 127/59 123/58 137/64 O2 Sat by Pulse 98 98 99 Oximetry 05/31/16 05/31/16 05/31/16 03:30 03:45 04:00 Temperature Pulse Rate 110 H 111 H 115 H Pulse Rate [ Anterior Bilateral Throughout] Respiratory 16 17 16 Rate Respiratory Rate [Anterior Bilateral Throughout] Blood Pressure 124/56 122/54 120/76 O2 Sat by Pulse 98 98 98 Oximetry 05/31/16 05/31/16 05/31/16 04:03 04:15 04:28 Temperature Pulse Rate 112 H Pulse Rate [ 114 H 112 H Anterior Bilateral Throughout] Respiratory 16 Rate Respiratory 17 14 Rate [Anterior Bilateral Throughout] Blood Pressure 126/64 O2 Sat by Pulse 100 Oximetry 05/31/16 05/31/16 05/31/16 04:31 04:45 05:00 Temperature Pulse Rate 114 H 118 H 114 H Pulse Rate [ Anterior Bilateral Throughout] Respiratory 14 16 15 Rate Respiratory Rate [Anterior Bilateral Throughout] Blood Pressure 144/59 143/59 140/56 O2 Sat by Pulse 99 99 99 Oximetry 05/31/16 05/31/16 05/31/16 05:15 05:30 05:40 Temperature Pulse Rate 113 H 115 H Pulse Rate [ Anterior Bilateral Throughout] Respiratory 17 19 18 Rate Respiratory Rate [Anterior Bilateral Throughout] Blood Pressure 124/59 120/64 O2 Sat by Pulse 99 99 Oximetry 05/31/16 05/31/16 05/31/16 05:45 06:00 06:15 Temperature Pulse Rate 115 H 113 H 119 H Pulse Rate [ Anterior Bilateral Throughout] Respiratory 17 16 16 Rate Respiratory Rate [Anterior Bilateral Throughout] Blood Pressure 113/58 117/51 117/63 O2 Sat by Pulse 98 98 99 Oximetry 05/31/16 05/31/16 05/31/16 06:30 06:45 07:00 Temperature Pulse Rate 117 H 112 H 112 H Pulse Rate [ Anterior Bilateral Throughout] Respiratory 16 17 15 Rate Respiratory Rate [Anterior Bilateral Throughout] Blood Pressure 109/58 108/60 123/60 O2 Sat by Pulse 99 99 99 Oximetry 05/31/16 05/31/16 05/31/16 07:15 07:30 07:45 Temperature Pulse Rate 111 H 112 H 115 H Pulse Rate [ Anterior Bilateral Throughout] Respiratory 17 16 16 Rate Respiratory Rate [Anterior Bilateral Throughout] Blood Pressure 121/56 128/55 132/63 O2 Sat by Pulse 99 99 99 Oximetry 05/31/16 05/31/16 05/31/16 08:00 08:15 08:30 Temperature 98.7 F Pulse Rate 113 H 116 H 120 H Pulse Rate [ Anterior Bilateral Throughout] Respiratory 15 16 19 Rate Respiratory Rate [Anterior Bilateral Throughout] Blood Pressure 134/58 139/59 143/58 O2 Sat by Pulse 99 99 99 Oximetry 05/31/16 08:45 Temperature Pulse Rate 119 H Pulse Rate [ Anterior Bilateral Throughout] Respiratory 17 Rate Respiratory Rate [Anterior Bilateral Throughout] Blood Pressure 137/66 O2 Sat by Pulse 98 Oximetry - General Appearance General appearance: well-developed, well-nourished, obese, sedated on ventilator , intubated, other (right groin hemodialysis catheter noted) EENT: PERRL, other Neck: supple Respiratory: Present: Other (coarse breath sounds heard) Cardiology: regular, S1S2, no murmurs Gastrointestinal: normoactive bowel sounds, no tenderness, no distended, no guarding Integumentary: no rash, warm and dry Neurologic: other (opens eyes) Musculoskeletal: other (no edema) Psychiatric: other (sedated) - Lab 05/31/16 05:50 05/31/16 05:50 Most recent lab results Calcium 6.0 mg/dL (8.4-10.2) L 05/31/16 05:50 Phosphorus 6.6 mg/dL (2.5-4.5) H 05/30/16 05:30 Urine Creatinine 69.9 mg/dL (0.1-20.0) H 05/27/16 18:00 Urine Sodium 46 mEq/L 05/27/16 18:00
[2016-05-31] MEDS: PULMICORT IH SCH ×2 (09:05→19:36)
[2016-05-31] MEDS: NOVOLOG SUB-Q SCH ×4 (09:48→21:48)
[2016-05-31] MEDS: PROTONIX PO SCH ×2 (09:49→21:24)
[2016-05-31] MEDS: KAYEXALATE PO SCH ×2 (09:50→15:09)
--- NOTE | 2016-05-31 09:51 | XRay Report ---
AP chest History: Followup respiratory failure. Findings: The endotracheal tube, feeding tube and right arm PICC remain in the same position. Heart size remains normal. Mild pulmonary venous congestion or mild chronic interstitial changes are stable. The lungs are generally clear. No acute process is noted. Impression: No acute process. No change.
--- NOTE | 2016-05-31 11:06 | XRay Report ---
AP chest History: Followup respiratory failure. Findings: The endotracheal tube and right venous catheter and Dobbhoff tube are unchanged in position. Heart size remains within normal limits. Mild pulmonary venous congestion or chronic interstitial changes are suspected. No consolidation, pleural effusion or pneumothorax.
[2016-05-31 12:40] LABS: ISTAT Base Excess -5; ISTAT HCO3 21.8; ISTAT PCO2 44.5 (35-45); ISTAT PH 7.298 (7.35-7.45); ISTAT PO2 98 (80-105); ISTAT SO2 97; ISTAT TCO2 23
--- NOTE | 2016-05-31 12:52 | Progress Note ---
Assessment and Plan - Patient Problems (1) Acute exacerbation of chronic obstructive pulmonary disease (COPD) Current Visit: Yes Status: Acute Plan to address problem: - continue supplemental oxygen to keep sats >/= 92% - continue empiric AB's and follow cultures - continue ALIN and LABA - continue systemic steroids with slow taper - complete VTE w/up (Unable to do VQ or CTA re: azotemia - repeat ABG prn - Holding on weaning till more stable - failed bedside SBT (2) Acute on chronic respiratory failure with hypoxemia Current Visit: Yes Status: Acute Plan to address problem: - as above - continue aspiration precautions / VAP bundles - continue bronchodilators and pulmonary toilet - resume fentanyl drip for sedation/analgesia - get KUB and decompress abdomen if necessary (will give simethicone in short term +/- reglan) - added seroquel and prn xanax for anxiolysis - resume IV versed if still agitated and intolerant (3) Obesity Current Visit: Yes Status: Acute Plan to address problem: - weight loss - outpatient PSG (4) Sepsis syndrome Current Visit: Yes Status: Acute Plan to address problem: - CRP unremarkable - Lactate trended down - hold on broadening AB's - get labs and r/o significant bleeding occultly - aggressive volume resuscitation - central venous access obtained - stopped alkalanized fluids - switch to more conservative volume management at this point - continue to follow off AB's - continue to wean levophed to keep MAP > 60-65mmHg (5) Anemia Current Visit: Yes Status: Acute Plan to address problem: - suspect inappropriate rise in Hb post 2 units PRBC's is due to hemodilution - will follow and hold on transfusion except Hb < 7.0 at this point - GI evaluation noted - change to bid PPI dosing - H&H holding - CBC in am (6) RUBIA (acute kidney injury) Current Visit: Yes Status: Acute Plan to address problem: - will consult nephrology sooner rather than later - likely ATN component in setting of IVVD - nephrology consulted and evaluation ongoing - oliguria developing now - will get vascath - discussed with results technician and will likely need LATEXER - tolerated Dialysis - still making some urine (7) Thrombocytopenia Current Visit: Yes Status: Acute Plan to address problem: - likely related to sepsis and azotemia - stopped heparinoids - sent HIT assay (8) Discharge planning issues Current Visit: Yes Status: Acute Plan to address problem: - weaning tenuously not unexpectedly so far; if does not wean well may need LTAC evaluation but not at this point ...he is critically ill on life sustaining interventions including MVS and at high risk for further deterioration including ...32' CCT Subjective Date of service: 05/31/16 Principal diagnosis: Acute on Chronic Hypoxemic Respiratory Failure Interval history: seen and examined at bedside; 24hour events reviewed; nursing and respiratory care staff consulted; no adverse overnight events reported to me; tolerating PSV trials much better today; s/p HD/UF; no emesis or overt aspiration and no gross bleeding Objective Vital Signs - 12hr 05/31/16 05/31/16 05/31/16 01:00 01:15 01:30 Temperature Pulse Rate 103 H 102 H 102 H Pulse Rate [ Anterior Bilateral Throughout] Respiratory 16 14 16 Rate Respiratory Rate [Anterior Bilateral Throughout] Blood Pressure 131/58 128/59 130/56 O2 Sat by Pulse 99 99 99 Oximetry 05/31/16 05/31/16 05/31/16 01:45 02:00 02:15 Temperature Pulse Rate 102 H 111 H 118 H Pulse Rate [ Anterior Bilateral Throughout] Respiratory 18 14 18 Rate Respiratory Rate [Anterior Bilateral Throughout] Blood Pressure 131/57 134/67 131/68 O2 Sat by Pulse 99 97 98 Oximetry 05/31/16 05/31/16 05/31/16 02:30 02:45 03:00 Temperature Pulse Rate 119 H 118 H 116 H Pulse Rate [ Anterior Bilateral Throughout] Respiratory 16 18 17 Rate Respiratory Rate [Anterior Bilateral Throughout] Blood Pressure 143/62 127/59 123/58 O2 Sat by Pulse 99 98 98 Oximetry 05/31/16 05/31/16 05/31/16 03:15 03:30 03:45 Temperature Pulse Rate 119 H 110 H 111 H Pulse Rate [ Anterior Bilateral Throughout] Respiratory 17 16 17 Rate Respiratory Rate [Anterior Bilateral Throughout] Blood Pressure 137/64 124/56 122/54 O2 Sat by Pulse 99 98 98 Oximetry 05/31/16 05/31/16 05/31/16 04:00 04:03 04:15 Temperature Pulse Rate 115 H 112 H Pulse Rate [ 114 H Anterior Bilateral Throughout] Respiratory 16 16 Rate Respiratory 17 Rate [Anterior Bilateral Throughout] Blood Pressure 120/76 126/64 O2 Sat by Pulse 98 100 Oximetry 05/31/16 05/31/16 05/31/16 04:28 04:31 04:45 Temperature Pulse Rate 114 H 118 H Pulse Rate [ 112 H Anterior Bilateral Throughout] Respiratory 14 16 Rate Respiratory 14 Rate [Anterior Bilateral Throughout] Blood Pressure 144/59 143/59 O2 Sat by Pulse 99 99 Oximetry 05/31/16 05/31/16 05/31/16 05:00 05:15 05:30 Temperature Pulse Rate 114 H 113 H 115 H Pulse Rate [ Anterior Bilateral Throughout] Respiratory 15 17 19 Rate Respiratory Rate [Anterior Bilateral Throughout] Blood Pressure 140/56 124/59 120/64 O2 Sat by Pulse 99 99 99 Oximetry 05/31/16 05/31/16 05/31/16 05:40 05:45 06:00 Temperature Pulse Rate 115 H 113 H Pulse Rate [ Anterior Bilateral Throughout] Respiratory 18 17 16 Rate Respiratory Rate [Anterior Bilateral Throughout] Blood Pressure 113/58 117/51 O2 Sat by Pulse 98 98 Oximetry 05/31/16 05/31/16 05/31/16 06:15 06:30 06:45 Temperature Pulse Rate 119 H 117 H 112 H Pulse Rate [ Anterior Bilateral Throughout] Respiratory 16 16 17 Rate Respiratory Rate [Anterior Bilateral Throughout] Blood Pressure 117/63 109/58 108/60 O2 Sat by Pulse 99 99 99 Oximetry 05/31/16 05/31/16 05/31/16 07:00 07:10 07:15 Temperature Pulse Rate 112 H 111 H Pulse Rate [ Anterior Bilateral Throughout] Respiratory 15 18 17 Rate Respiratory Rate [Anterior Bilateral Throughout] Blood Pressure 123/60 121/56 O2 Sat by Pulse 99 99 Oximetry 05/31/16 05/31/16 05/31/16 07:30 07:45 08:00 Temperature 98.7 F Pulse Rate 112 H 115 H 113 H Pulse Rate [ Anterior Bilateral Throughout] Respiratory 16 16 15 Rate Respiratory Rate [Anterior Bilateral Throughout] Blood Pressure 128/55 132/63 134/58 O2 Sat by Pulse 99 99 99 Oximetry 05/31/16 05/31/16 05/31/16 08:15 08:30 08:45 Temperature Pulse Rate 116 H 120 H 119 H Pulse Rate [ Anterior Bilateral Throughout] Respiratory 16 19 17 Rate Respiratory Rate [Anterior Bilateral Throughout] Blood Pressure 139/59 143/58 137/66 O2 Sat by Pulse 99 99 98 Oximetry 05/31/16 05/31/16 05/31/16 08:49 08:51 09:00 Temperature Pulse Rate 119 H 120 H 120 H Pulse Rate [ Anterior Bilateral Throughout] Respiratory 18 18 Rate Respiratory Rate [Anterior Bilateral Throughout] Blood Pressure 137/66 137/66 143/67 O2 Sat by Pulse 99 99 99 Oximetry 05/31/16 05/31/16 05/31/16 09:05 09:15 09:20 Temperature Pulse Rate 113 H Pulse Rate [ 118 H 120 H Anterior Bilateral Throughout] Respiratory 16 Rate Respiratory 18 14 Rate [Anterior Bilateral Throughout] Blood Pressure 133/58 O2 Sat by Pulse 100 Oximetry 05/31/16 05/31/16 05/31/16 09:26 09:30 09:45 Temperature Pulse Rate 116 H 117 H 114 H Pulse Rate [ Anterior Bilateral Throughout] Respiratory 13 12 12 Rate Respiratory Rate [Anterior Bilateral Throughout] Blood Pressure 125/58 125/58 116/58 O2 Sat by Pulse 99 99 99 Oximetry 05/31/16 05/31/16 05/31/16 10:00 10:15 10:31 Temperature Pulse Rate 117 H 118 H 121 H Pulse Rate [ Anterior Bilateral Throughout] Respiratory 16 19 16 Rate Respiratory Rate [Anterior Bilateral Throughout] Blood Pressure 131/59 124/49 126/55 O2 Sat by Pulse 99 99 99 Oximetry 05/31/16 05/31/16 05/31/16 10:45 11:00 11:15 Temperature Pulse Rate 123 H 127 H 132 H Pulse Rate [ Anterior Bilateral Throughout] Respiratory 17 19 22 Rate Respiratory Rate [Anterior Bilateral Throughout] Blood Pressure 123/52 138/58 138/58 O2 Sat by Pulse 99 99 99 Oximetry 05/31/16 05/31/16 05/31/16 11:19 11:30 11:45 Temperature 99.9 F H Pulse Rate 126 H 126 H Pulse Rate [ Anterior Bilateral Throughout] Respiratory 23 17 16 Rate Respiratory Rate [Anterior Bilateral Throughout] Blood Pressure 147/54 147/54 O2 Sat by Pulse 98 98 Oximetry 05/31/16 05/31/16 05/31/16 11:47 12:00 12:15 Temperature Pulse Rate 122 H 120 H 119 H Pulse Rate [ Anterior Bilateral Throughout] Respiratory 16 14 13 Rate Respiratory Rate [Anterior Bilateral Throughout] Blood Pressure 127/49 108/47 111/49 O2 Sat by Pulse 98 98 98 Oximetry 05/31/16 05/31/16 12:30 12:45 Temperature Pulse Rate 121 H 120 H Pulse Rate [ Anterior Bilateral Throughout] Respiratory 15 15 Rate Respiratory Rate [Anterior Bilateral Throughout] Blood Pressure 114/51 107/54 O2 Sat by Pulse 98 99 Oximetry Constitutional: no acute distress, other (sedated) Eyes: non-icteric ENT: oropharynx moist Neck: supple, no lymphadenopathy Effort: mildly labored Ascultation: Bilateral: diminished breath sounds, rales (bases) Cardiovascular: regular rate and rhythm Gastrointestinal: normoactive bowel sounds, non-tender, other (distended, firm but not tense) Integumentary: normal Extremities: no cyanosis, no edema, pink and warm, pulses normal Neurologic: normal mental status, non-focal exam, pupils equal and round, motor strength normal and Psychiatric: other (sedated) CBC and BMP: 06/02/16 04:00 06/02/16 04:00 ABG, PT/INR, D-dimer: ABG POC ABG pH 7.298 (7.35-7.45) L 05/31/16 12:34 POC ABG pCO2 44.5 (35-45) 05/31/16 12:34 POC ABG pO2 98 (80-105) 05/31/16 12:34 POC ABG HCO3 21.8 05/31/16 12:34 POC ABG Total CO2 23 05/31/16 12:34 POC ABG O2 Sat 97 05/31/16 12:34 PT/INR, D-dimer PT 13.4 Sec. (12.2-14.9) 05/25/16 13:38 INR 1.03 (0.87-1.13) 05/25/16 13:38 D-Dimer 239.48 ng/mlDDU (0-234) H 05/23/16 14:16 Abnormal lab findings: Abnormal Labs 05/23/16 05/23/16 05/23/16 06:02 09:35 11:22 WBC RBC Hgb Hct RDW Plt Count Seg Neuts % (Manual) Lymphocytes % (Manual) Nucleated RBC % Seg Neutrophils # Man Lymphocytes # (Manual) D-Dimer Heparin Anti-Xa Level POC ABG pH POC ABG pCO2 POC ABG pO2 Sodium Potassium Chloride Carbon Dioxide BUN Creatinine Glucose POC Glucose 174 H 232 H Hemoglobin A1c 6.4 H Lactic Acid Calcium Phosphorus AST ALT Total Creatine Kinase Total Protein Albumin Urine Creatinine Crossmatch 05/23/16 05/23/16 05/23/16 14:16 16:07 22:23 WBC RBC Hgb Hct RDW Plt Count Seg Neuts % (Manual) Lymphocytes % (Manual) Nucleated RBC % Seg Neutrophils # Man Lymphocytes # (Manual) D-Dimer 239.48 H Heparin Anti-Xa Level POC ABG pH POC ABG pCO2 POC ABG pO2 Sodium Potassium Chloride Carbon Dioxide BUN Creatinine Glucose POC Glucose 126 H 171 H Hemoglobin A1c Lactic Acid Calcium Phosphorus AST ALT Total Creatine Kinase Total Protein Albumin Urine Creatinine Crossmatch 05/24/16 05/24/16 05/24/16 08:08 08:08 08:19 WBC RBC 3.24 L Hgb 9.6 L Hct 28.6 L RDW 15.7 H Plt Count Seg Neuts % (Manual) 71.0 H Lymphocytes % (Manual) 7.0 L Nucleated RBC % Seg Neutrophils # Man Lymphocytes # (Manual) 0.8 L D-Dimer Heparin Anti-Xa Level POC ABG pH POC ABG pCO2 POC ABG pO2 Sodium 132 L Potassium Chloride 93.9 L Carbon Dioxide 18 L BUN 39 H Creatinine Glucose 166 H POC Glucose 173 H Hemoglobin A1c Lactic Acid Calcium Phosphorus AST ALT Total Creatine Kinase Total Protein Albumin Urine Creatinine Crossmatch 05/24/16 05/24/16 05/24/16 11:55 17:15 22:18 WBC RBC Hgb Hct RDW Plt Count Seg Neuts % (Manual) Lymphocytes % (Manual) Nucleated RBC % Seg Neutrophils # Man Lymphocytes # (Manual) D-Dimer Heparin Anti-Xa Level POC ABG pH POC ABG pCO2 POC ABG pO2 Sodium Potassium Chloride Carbon Dioxide BUN Creatinine Glucose POC Glucose 210 H 147 H 163 H Hemoglobin A1c Lactic Acid Calcium Phosphorus AST ALT Total Creatine Kinase Total Protein Albumin Urine Creatinine Crossmatch 05/25/16 05/25/16 05/25/16 08:43 13:38 14:19 WBC RBC Hgb 10.0 L Hct 30.4 L RDW Plt Count Seg Neuts % (Manual) Lymphocytes % (Manual) Nucleated RBC % Seg Neutrophils # Man Lymphocytes # (Manual) D-Dimer Heparin Anti-Xa Level POC ABG pH POC ABG pCO2 POC ABG pO2 Sodium Potassium Chloride Carbon Dioxide BUN Creatinine Glucose POC Glucose 177 H 180 H Hemoglobin A1c Lactic Acid Calcium Phosphorus AST ALT Total Creatine Kinase Total Protein Albumin Urine Creatinine Crossmatch 05/25/16 05/25/16 05/25/16 16:16 16:25 21:32 WBC RBC Hgb Hct RDW Plt Count Seg Neuts % (Manual) Lymphocytes % (Manual) Nucleated RBC % Seg Neutrophils # Man Lymphocytes # (Manual) D-Dimer Heparin Anti-Xa Level POC ABG pH POC ABG pCO2 34.3 L POC ABG pO2 114 H Sodium Potassium Chloride Carbon Dioxide BUN Creatinine Glucose POC Glucose 193 H 183 H Hemoglobin A1c Lactic Acid Calcium Phosphorus AST ALT Total Creatine Kinase Total Protein Albumin Urine Creatinine Crossmatch 05/26/16 05/26/16 05/26/16 00:06 07:42 10:17 WBC RBC Hgb Hct RDW Plt Count Seg Neuts % (Manual) Lymphocytes % (Manual) Nucleated RBC % Seg Neutrophils # Man Lymphocytes # (Manual) D-Dimer Heparin Anti-Xa Level 1.23 H 0.98 H POC ABG pH POC ABG pCO2 POC ABG pO2 Sodium Potassium Chloride Carbon Dioxide BUN Creatinine Glucose POC Glucose 206 H Hemoglobin A1c Lactic Acid Calcium Phosphorus AST ALT Total Creatine Kinase Total Protein Albumin Urine Creatinine Crossmatch 05/26/16 05/26/16 05/26/16 11:57 12:38 13:52 WBC 19.7 H RBC 2.56 L Hgb 7.4 L Hct 23.2 L D RDW 15.8 H Plt Count Seg Neuts % (Manual) Lymphocytes % (Manual) Nucleated RBC % Seg Neutrophils # Man Lymphocytes # (Manual) D-Dimer Heparin Anti-Xa Level POC ABG pH 7.298 L POC ABG pCO2 27.8 L POC ABG pO2 132 H Sodium Potassium Chloride Carbon Dioxide BUN Creatinine Glucose POC Glucose 338 H Hemoglobin A1c Lactic Acid Calcium Phosphorus AST ALT Total Creatine Kinase Total Protein Albumin Urine Creatinine Crossmatch 05/26/16 05/26/16 05/26/16 15:47 15:47 17:06 WBC RBC Hgb Hct RDW Plt Count Seg Neuts % (Manual) Lymphocytes % (Manual) Nucleated RBC % Seg Neutrophils # Man Lymphocytes # (Manual) D-Dimer Heparin Anti-Xa Level 1.35 H POC ABG pH 7.108 L POC ABG pCO2 POC ABG pO2 287 H Sodium Potassium Chloride Carbon Dioxide BUN Creatinine Glucose POC Glucose Hemoglobin A1c Lactic Acid 9.0 H* Calcium Phosphorus AST ALT Total Creatine Kinase Total Protein Albumin Urine Creatinine Crossmatch 05/26/16 05/26/16 05/26/16 17:12 17:15 17:53 WBC RBC Hgb Hct RDW Plt Count Seg Neuts % (Manual) Lymphocytes % (Manual) Nucleated RBC % Seg Neutrophils # Man Lymphocytes # (Manual) D-Dimer Heparin Anti-Xa Level POC ABG pH 7.061 L POC ABG pCO2 47.3 H POC ABG pO2 35 L Sodium Potassium Chloride Carbon Dioxide BUN Creatinine Glucose POC Glucose 275 H Hemoglobin A1c Lactic Acid Calcium Phosphorus AST ALT Total Creatine Kinase Total Protein Albumin Urine Creatinine Crossmatch See Detail 05/26/16 05/26/16 05/26/16 17:53 22:08 23:00 WBC RBC Hgb 6.7 L Hct 22.3 L RDW Plt Count Seg Neuts % (Manual) Lymphocytes % (Manual) Nucleated RBC % Seg Neutrophils # Man Lymphocytes # (Manual) D-Dimer Heparin Anti-Xa Level POC ABG pH 7.195 L POC ABG pCO2 POC ABG pO2 129 H Sodium Potassium Chloride Carbon Dioxide BUN Creatinine Glucose POC Glucose 250 H Hemoglobin A1c Lactic Acid Calcium Phosphorus AST ALT Total Creatine Kinase Total Protein Albumin Urine Creatinine Crossmatch 05/27/16 05/27/16 05/27/16 00:26 01:00 05:13 WBC RBC Hgb 8.0 L Hct 24.6 L RDW Plt Count Seg Neuts % (Manual) Lymphocytes % (Manual) Nucleated RBC % Seg Neutrophils # Man Lymphocytes # (Manual) D-Dimer Heparin Anti-Xa Level POC ABG pH 7.273 L POC ABG pCO2 POC ABG pO2 62 L Sodium Potassium Chloride Carbon Dioxide BUN Creatinine Glucose POC Glucose Hemoglobin A1c Lactic Acid Calcium Phosphorus AST ALT Total Creatine Kinase Total Protein Albumin Urine Creatinine Crossmatch 05/27/16 05/27/16 05/27/16 05:50 05:50 07:54 WBC RBC Hgb 7.6 L Hct 23.1 L RDW Plt Count Seg Neuts % (Manual) Lymphocytes % (Manual) Nucleated RBC % Seg Neutrophils # Man Lymphocytes # (Manual) D-Dimer Heparin Anti-Xa Level POC ABG pH POC ABG pCO2 POC ABG pO2 Sodium Potassium Chloride Carbon Dioxide BUN Creatinine Glucose POC Glucose 385 H Hemoglobin A1c Lactic Acid 4.0 H* Calcium Phosphorus AST ALT Total Creatine Kinase Total Protein Albumin Urine Creatinine Crossmatch 05/27/16 05/27/16 05/27/16 08:30 11:57 16:04 WBC RBC Hgb Hct RDW Plt Count Seg Neuts % (Manual) Lymphocytes % (Manual) Nucleated RBC % Seg Neutrophils # Man Lymphocytes # (Manual) D-Dimer Heparin Anti-Xa Level POC ABG pH POC ABG pCO2 POC ABG pO2 Sodium Potassium Chloride 94.8 L Carbon Dioxide BUN 61 H Creatinine 2.9 H D Glucose 411 H POC Glucose 394 H 292 H Hemoglobin A1c Lactic Acid Calcium 6.3 L D Phosphorus AST 7200 H ALT 4300 H Total Creatine Kinase Total Protein 4.5 L D Albumin 3.0 L Urine Creatinine Crossmatch 05/27/16 05/27/16 05/27/16 17:15 18:00 18:25 WBC RBC Hgb 7.5 L Hct 22.5 L RDW Plt Count Seg Neuts % (Manual) Lymphocytes % (Manual) Nucleated RBC % Seg Neutrophils # Man Lymphocytes # (Manual) D-Dimer Heparin Anti-Xa Level POC ABG pH POC ABG pCO2 POC ABG pO2 Sodium Potassium Chloride Carbon Dioxide BUN Creatinine Glucose POC Glucose Hemoglobin A1c Lactic Acid Calcium Phosphorus AST 8515 H ALT 4517 H Total Creatine Kinase Total Protein 4.6 L Albumin 2.8 L Urine Creatinine 69.9 H Crossmatch 05/27/16 05/28/16 05/28/16 21:44 04:50 04:50 WBC 19.9 H RBC 2.66 L Hgb 7.6 L Hct 23.3 L RDW 15.4 H Plt Count 101 L Seg Neuts % (Manual) Lymphocytes % (Manual) Nucleated RBC % Seg Neutrophils # Man Lymphocytes # (Manual) D-Dimer Heparin Anti-Xa Level POC ABG pH POC ABG pCO2 POC ABG pO2 Sodium Potassium Chloride Carbon Dioxide BUN 79 H Creatinine 3.9 H Glucose 166 H POC Glucose 176 H Hemoglobin A1c Lactic Acid Calcium 6.3 L Phosphorus AST 5609 H ALT 4060 H Total Creatine Kinase 929 H Total Protein 4.8 L Albumin 2.9 L Urine Creatinine Crossmatch 05/28/16 05/28/16 05/28/16 05:17 07:38 12:41 WBC RBC Hgb Hct RDW Plt Count Seg Neuts % (Manual) Lymphocytes % (Manual) Nucleated RBC % Seg Neutrophils # Man Lymphocytes # (Manual) D-Dimer Heparin Anti-Xa Level POC ABG pH POC ABG pCO2 POC ABG pO2 115 H Sodium Potassium Chloride Carbon Dioxide BUN Creatinine Glucose POC Glucose 168 H 173 H Hemoglobin A1c Lactic Acid Calcium Phosphorus AST ALT Total Creatine Kinase Total Protein Albumin Urine Creatinine Crossmatch 05/28/16 05/28/16 05/29/16 16:12 21:45 04:15 WBC RBC Hgb Hct RDW Plt Count 71 L Seg Neuts % (Manual) Lymphocytes % (Manual) Nucleated RBC % Seg Neutrophils # Man Lymphocytes # (Manual) D-Dimer Heparin Anti-Xa Level POC ABG pH POC ABG pCO2 POC ABG pO2 Sodium Potassium Chloride Carbon Dioxide BUN Creatinine Glucose POC Glucose 210 H 221 H Hemoglobin A1c Lactic Acid Calcium Phosphorus AST ALT Total Creatine Kinase Total Protein Albumin Urine Creatinine Crossmatch 05/29/16 05/29/16 05/29/16 04:15 06:14 07:28 WBC RBC Hgb Hct RDW Plt Count Seg Neuts % (Manual) Lymphocytes % (Manual) Nucleated RBC % Seg Neutrophils # Man Lymphocytes # (Manual) D-Dimer Heparin Anti-Xa Level POC ABG pH 7.285 L POC ABG pCO2 POC ABG pO2 63 L Sodium Potassium Chloride Carbon Dioxide 21 L BUN 98 H Creatinine 4.7 H Glucose 220 H POC Glucose 232 H Hemoglobin A1c Lactic Acid Calcium 5.8 L* Phosphorus AST 1464 H ALT 2628 H Total Creatine Kinase 792 H Total Protein 4.5 L Albumin 2.8 L Urine Creatinine Crossmatch 05/29/16 05/29/16 05/29/16 11:33 11:58 15:22 WBC RBC Hgb Hct RDW Plt Count Seg Neuts % (Manual) Lymphocytes % (Manual) Nucleated RBC % Seg Neutrophils # Man Lymphocytes # (Manual) D-Dimer Heparin Anti-Xa Level POC ABG pH 7.291 L POC ABG pCO2 45.3 H POC ABG pO2 Sodium Potassium Chloride Carbon Dioxide BUN Creatinine Glucose POC Glucose 196 H 184 H Hemoglobin A1c Lactic Acid Calcium Phosphorus AST ALT Total Creatine Kinase Total Protein Albumin Urine Creatinine Crossmatch 05/29/16 05/30/16 05/30/16 22:16 04:53 05:30 WBC RBC Hgb Hct RDW Plt Count Seg Neuts % (Manual) Lymphocytes % (Manual) Nucleated RBC % Seg Neutrophils # Man Lymphocytes # (Manual) D-Dimer Heparin Anti-Xa Level POC ABG pH 7.303 L POC ABG pCO2 POC ABG pO2 Sodium Potassium 5.5 H Chloride Carbon Dioxide BUN 113 H Creatinine 5.3 H Glucose 240 H POC Glucose 274 H Hemoglobin A1c Lactic Acid Calcium 5.5 L* Phosphorus 6.6 H AST 380 H ALT 1647 H Total Creatine Kinase 2131 H Total Protein 4.4 L Albumin 2.8 L Urine Creatinine Crossmatch 05/30/16 05/30/16 05/30/16 05:30 06:01 08:25 WBC 15.4 H RBC 2.45 L Hgb 7.0 L Hct 22.0 L RDW 16.1 H Plt Count 51 L Seg Neuts % (Manual) Lymphocytes % (Manual) 9.0 L Nucleated RBC % 7.0 H Seg Neutrophils # Man 8.5 H Lymphocytes # (Manual) D-Dimer Heparin Anti-Xa Level POC ABG pH POC ABG pCO2 POC ABG pO2 Sodium Potassium Chloride Carbon Dioxide BUN Creatinine Glucose POC Glucose 268 H Hemoglobin A1c Lactic Acid Calcium Phosphorus AST ALT Total Creatine Kinase Total Protein Albumin Urine Creatinine Crossmatch See Detail 05/30/16 05/30/16 05/30/16 12:04 18:54 22:23 WBC RBC Hgb Hct RDW Plt Count Seg Neuts % (Manual) Lymphocytes % (Manual) Nucleated RBC % Seg Neutrophils # Man Lymphocytes # (Manual) D-Dimer Heparin Anti-Xa Level POC ABG pH POC ABG pCO2 POC ABG pO2 Sodium Potassium Chloride Carbon Dioxide BUN Creatinine Glucose POC Glucose 251 H 210 H 199 H Hemoglobin A1c Lactic Acid Calcium Phosphorus AST ALT Total Creatine Kinase Total Protein Albumin Urine Creatinine Crossmatch 05/31/16 05/31/16 05/31/16 05:50 05:50 06:19 WBC 22.0 H RBC 3.61 L Hgb 10.3 L D Hct 31.9 L D RDW 15.6 H Plt Count 42 L Seg Neuts % (Manual) Lymphocytes % (Manual) Nucleated RBC % Seg Neutrophils # Man Lymphocytes # (Manual) D-Dimer Heparin Anti-Xa Level POC ABG pH 7.320 L POC ABG pCO2 45.2 H POC ABG pO2 Sodium 134 L Potassium 5.1 H Chloride 97.0 L Carbon Dioxide BUN 77 H Creatinine 3.6 H Glucose 225 H POC Glucose Hemoglobin A1c Lactic Acid Calcium 6.0 L Phosphorus AST 133 H ALT 1165 H Total Creatine Kinase 1486 H Total Protein 4.5 L Albumin 2.7 L Urine Creatinine Crossmatch 05/31/16 05/31/16 05/31/16 07:42 12:13 12:34 WBC RBC Hgb Hct RDW Plt Count Seg Neuts % (Manual) Lymphocytes % (Manual) Nucleated RBC % Seg Neutrophils # Man Lymphocytes # (Manual) D-Dimer Heparin Anti-Xa Level POC ABG pH 7.298 L POC ABG pCO2 POC ABG pO2 Sodium Potassium Chloride Carbon Dioxide BUN Creatinine Glucose POC Glucose 250 H 209 H Hemoglobin A1c Lactic Acid Calcium Phosphorus AST ALT Total Creatine Kinase Total Protein Albumin Urine Creatinine Crossmatch Chest x-ray: image reviewed
--- NOTE | 2016-05-31 13:05 | Progress Note ---
Assessment and Plan Assessment and plan: Patient is a 80-year-old man with a history of type 2 diabetes mellitus, hypertension, dyslipidemia and chronic respiratory failure on 3 L oxygen at home due to COPD who presented with shortness breath and a cough on 05/22/2016. He was admitted for COPD exacerbation, He was placed on BiPAP. Initial chest x-ray was unremarkable. Imaging study was ordered but the machine was broken until 05/27/2016 but he unable to get now because patient was unstable and intubated on May 26, 2016. So, he was treated with iv heparin. During his hospital course hematocrit started dropping, requiring blood transfusion and consultation with gastroenterology. Also, Renal function is deteriorating questionable needing dialysis per Dr. Nice. * Acute on chronic hypoxic respiratory failure * Acute blood loss anemia * Acute kidney injury- creatning still increaseing, likely secondary to ATN. neprhology following * COPD exacerbation/+-asthma * Diabetes mellitus uncontrolled * Leukocytosis- could be secondary to steroids, r/o sepsis * Hypertension * Tremor * Hyperlipidemia * Allergic rhinitis * Metabolic acidosis * Sinus tachycardia Plan * Intubated-mechanical ventilator support * ALIN, LABA * Fentanyl for sedation * lactate continues to improve * Consulted talent development coordinator * Discussed with shop fitter * S/P 2 UNIT PRBC * HGB Relatively stable * continue to wean pressors * continue emperic PPI Drip, * no overt evidence of GI bleed, but will need definitive study to r/o retroperitoneal bleed==to unstable for test currently, on 11 mcg of Levophed, intubated. * DVT and GI prophylaxis History Interval history: Patient seen and examined. Follow up on respiratory failure, patient is still intubated. Overnight uneventful. Imaging, old records, testing, labs, nursing notes reviewed. Hospitalist Physical - Physical exam Narrative exam: GEN: Ill-appearing intubated sedated CVS: regular tachycardia, NORMAL S1S2 LUNGS/CHEST: NORMAL CHEST EXPANSION B, GOOD AIR ENTRY B ABD: SOFT, more distended with hypoactive, NO REBOUND OR GUARDING NEURO: CN 2-12 GROSSLY INTACT, sedated - Constitutional Vitals: Temp Pulse Resp BP Pulse Ox 99.9 F H 120 H 15 107/54 99 05/31/16 11:30 05/31/16 12:45 05/31/16 12:45 05/31/16 12:45 05/31/16 12:45 General appearance: Present: no acute distress Results - Labs CBC & Chem 7: 05/31/16 05:50 05/31/16 05:50 Labs: Laboratory Last Values WBC 22.0 K/mm3 (4.5-11.0) H 05/31/16 05:50 RBC 3.61 M/mm3 (3.65-5.03) L 05/31/16 05:50 Hgb 10.3 gm/dl (11.8-15.2) L D 05/31/16 05:50 Hct 31.9 % (35.5-45.6) L D 05/31/16 05:50 MCV 88 fl (84-94) 05/31/16 05:50 MCH 29 pg (28-32) 05/31/16 05:50 MCHC 32 % (32-34) 05/31/16 05:50 RDW 15.6 % (13.2-15.2) H 05/31/16 05:50 Plt Count 42 K/mm3 (140-440) L 05/31/16 05:50 Lymph % (Auto) 13.0 % (13.4-35.0) L 05/22/16 14:25 [place] % (Auto) 13.1 % (0.0-7.3) H 05/22/16 14:25 Eos % (Auto) 1.1 % (0.0-4.3) 05/22/16 14:25 Baso % (Auto) 0.6 % (0.0-1.8) 05/22/16 14:25 Lymph # 0.8 K/mm3 (1.2-5.4) L 05/22/16 14:25 [place] # 0.8 K/mm3 (0.0-0.8) 05/22/16 14:25 Eos # 0.1 K/mm3 (0.0-0.4) 05/22/16 14:25 Baso # 0.0 K/mm3 (0.0-0.1) 05/22/16 14:25 Add Manual Diff Complete 05/30/16 05:30 Total Counted 100 05/30/16 05:30 Seg Neutrophils % Resident Program Specialist 05/30/16 05:30 Seg Neuts % (Manual) 55.0 % (40.0-70.0) 05/30/16 05:30 Band Neutrophils % 30.0 % 05/30/16 05:30 Lymphocytes % (Manual) 9.0 % (13.4-35.0) L 05/30/16 05:30 Reactive Lymphs % (Man) 1.0 % 05/30/16 05:30 Monocytes % (Manual) 5.0 % (0.0-7.3) 05/30/16 05:30 Eosinophils % (Manual) 0 % (0.0-4.3) 05/30/16 05:30 Basophils % (Manual) 0 % (0.0-1.8) 05/30/16 05:30 Metamyelocytes % 0 % 05/30/16 05:30 Myelocytes % 0 % 05/30/16 05:30 Promyelocytes % 0 % 05/30/16 05:30 Blast Cells % 0 % 05/30/16 05:30 Nucleated RBC % 7.0 % (0.0-0.9) H 05/30/16 05:30 Seg Neutrophils # 4.4 K/mm3 (1.8-7.7) 05/22/16 14:25 Seg Neutrophils # Man 8.5 K/mm3 (1.8-7.7) H 05/30/16 05:30 Band Neutrophils # 4.6 K/mm3 05/30/16 05:30 Lymphocytes # (Manual) 1.4 K/mm3 (1.2-5.4) 05/30/16 05:30 Abs React Lymphs (Man) 0.2 K/mm3 05/30/16 05:30 Monocytes # (Manual) 0.8 K/mm3 (0.0-0.8) 05/30/16 05:30 Eosinophils # (Manual) 0.0 K/mm3 (0.0-0.4) 05/30/16 05:30 Basophils # (Manual) 0.0 K/mm3 (0.0-0.1) 05/30/16 05:30 Metamyelocytes # 0.0 K/mm3 05/30/16 05:30 Myelocytes # 0.0 K/mm3 05/30/16 05:30 Promyelocytes # 0.0 K/mm3 05/30/16 05:30 Blast Cells # 0.0 K/mm3 05/30/16 05:30 WBC Morphology Not Reportable 05/30/16 05:30 Hypersegmented Neuts Not Reportable 05/30/16 05:30 Hyposegmented Neuts Not Reportable 05/30/16 05:30 Hypogranular Neuts Not Reportable 05/30/16 05:30 Smudge Cells Not Reportable 05/30/16 05:30 Toxic Granulation Not Reportable 05/30/16 05:30 Toxic Vacuolation Not Reportable 05/30/16 05:30 Dohle Bodies Not Reportable 05/30/16 05:30 Pelger-Huet Anomaly Not Reportable 05/30/16 05:30 Bari Rods Not Reportable 05/30/16 05:30 Platelet Estimate Consistent w auto 05/30/16 05:30 Clumped Platelets Not Reportable 05/30/16 05:30 Plt Clumps, EDTA Not Reportable 05/30/16 05:30 Large Platelets Rare 05/30/16 05:30 Giant Platelets Not Reportable 05/30/16 05:30 Platelet Satelliting Not Reportable 05/30/16 05:30 Plt Morphology Comment Not Reportable 05/30/16 05:30 RBC Morphology Not Reportable 05/30/16 05:30 Dimorphic RBCs Not Reportable 05/30/16 05:30 Polychromasia Rare 05/30/16 05:30 Hypochromasia 1+ 05/30/16 05:30 Poikilocytosis Not Reportable 05/30/16 05:30 Anisocytosis 1+ 05/30/16 05:30 Microcytosis Not Reportable 05/30/16 05:30 Macrocytosis Not Reportable 05/30/16 05:30 Spherocytes Not Reportable 05/30/16 05:30 Pappenheimer Bodies Not Reportable 05/30/16 05:30 Sickle Cells Not Reportable 05/30/16 05:30 Target Cells Not Reportable 05/30/16 05:30 Tear Drop Cells Not Reportable 05/30/16 05:30 Ovalocytes Not Reportable 05/30/16 05:30 Helmet Cells Not Reportable 05/30/16 05:30 [place] Bodies Not Reportable 05/30/16 05:30 [place] Rings Not Reportable 05/30/16 05:30 Benny Cells Not Reportable 05/30/16 05:30 Bite Cells Not Reportable 05/30/16 05:30 Crenated Cell Not Reportable 05/30/16 05:30 Elliptocytes Rare 05/30/16 05:30 Acanthocytes (Spur) Not Reportable 05/30/16 05:30 Rouleaux Not Reportable 05/30/16 05:30 Hemoglobin C Crystals Not Reportable 05/30/16 05:30 Schistocytes Not Reportable 05/30/16 05:30 Malaria parasites Not Reportable 05/30/16 05:30 Andrea Bodies Not Reportable 05/30/16 05:30 Hem Pathologist Commnt No 05/30/16 05:30 PT 13.4 Sec. (12.2-14.9) 05/25/16 13:38 INR 1.03 (0.87-1.13) 05/25/16 13:38 APTT 29.5 Sec. (24.2-36.6) 05/25/16 13:38 D-Dimer 239.48 ng/mlDDU (0-234) H 05/23/16 14:16 Heparin Anti-Xa Level 1.35 U.I./ml (0.3-0.7) H 05/26/16 15:47 POC ABG pH 7.298 (7.35-7.45) L 05/31/16 12:34 POC ABG pCO2 44.5 (35-45) 05/31/16 12:34 POC ABG pO2 98 (80-105) 05/31/16 12:34 POC ABG HCO3 21.8 05/31/16 12:34 POC ABG Total CO2 23 05/31/16 12:34 POC ABG O2 Sat 97 05/31/16 12:34 POC ABG Base Excess -5 05/31/16 12:34 VBG pH 7.403 (7.320-7.420) 05/22/16 14:24 FiO2 35 % 05/31/16 12:34 Sodium 134 mmol/L (137-145) L 05/31/16 05:50 Potassium 5.1 mmol/L (3.6-5.0) H 05/31/16 05:50 Chloride 97.0 mmol/L (98-107) L 05/31/16 05:50 Carbon Dioxide 25 mmol/L (22-30) 05/31/16 05:50 Anion Gap 17 mmol/L 05/31/16 05:50 BUN 77 mg/dL (9-20) H 05/31/16 05:50 Creatinine 3.6 mg/dL (0.8-1.5) H 05/31/16 05:50 Estimated GFR 16 ml/min 05/31/16 05:50 BUN/Creatinine Ratio 21.38 % 05/31/16 05:50 Glucose 225 mg/dL (75-100) H 05/31/16 05:50 POC Glucose 209 (70-105) H 05/31/16 12:13 Hemoglobin A1c 6.4 % (4-6) H 05/23/16 06:02 Lactic Acid 2.0 mmol/L (0.7-2.0) 05/28/16 04:50 Calcium 6.0 mg/dL (8.4-10.2) L 05/31/16 05:50 Phosphorus 6.6 mg/dL (2.5-4.5) H 05/30/16 05:30 Total Bilirubin 0.4 mg/dL (0.1-1.2) 05/31/16 05:50 Direct Bilirubin 0.2 mg/dL (0-0.2) 05/27/16 18:25 Indirect Bilirubin 0.2 mg/dL 05/27/16 18:25 AST 133 units/L (5-40) H 05/31/16 05:50 ALT 1165 units/L (7-56) H 05/31/16 05:50 Alkaline Phosphatase 101 units/L (35-129) 05/31/16 05:50 Total Creatine Kinase 1486 units/L (55-170) H 05/31/16 05:50 CK-MB (CK-2) 2.1 ng/mL (0.0-4.0) 05/22/16 14:24 CK-MB (CK-2) Rel Index 3.9 (0-4) 05/22/16 14:24 Troponin T 0.023 ng/mL (0.00-0.029) 05/22/16 14:24 C-Reactive Protein 0.70 mg/dL (0.00-1.30) 05/26/16 15:47 NT-Pro-B Natriuret Pep 316.0 pg/mL (0-900) 05/22/16 14:24 Total Protein 4.5 g/dL (6.3-8.2) L 05/31/16 05:50 Albumin 2.7 g/dL (3.9-5) L 05/31/16 05:50 Albumin/Globulin Ratio 1.5 % 05/31/16 05:50 Urine Color Yellow (Yellow) 05/22/16 22:30 Urine Turbidity Clear (Clear) 05/22/16 22:30 Urine pH 5.0 (5.0-7.0) 05/22/16 22:30 Ur Specific [place] 1.016 (1.003-1.030) 05/22/16 22:30 Urine Protein 30 mg/dl mg/dL (Negative) 05/22/16 22:30 Urine Glucose (UA) Neg mg/dL (Negative) 05/22/16 22:30 Urine Ketones Tr mg/dL (Negative) 05/22/16 22:30 Urine Blood Neg (Negative) 05/22/16 22:30 Urine Nitrite Neg (Negative) 05/22/16 22:30 Urine Bilirubin Neg (Negative) 05/22/16 22:30 Urine Urobilinogen < 2.0 mg/dL (<2.0) 05/22/16 22:30 Ur Leukocyte Esterase Neg (Negative) 05/22/16 22:30 Urine WBC (Auto) 3.0 /HPF (0.0-6.0) 05/22/16 22:30 Urine RBC (Auto) 1.0 /HPF (0.0-6.0) 05/22/16 22:30 U Epithel Cells (Auto) < 1.0 /HPF (0-13.0) 05/22/16 22:30 Hyaline Casts 1 /LPF 05/22/16 22:30 Urine Mucus Few /HPF 05/22/16 22:30 Urine Creatinine 69.9 mg/dL (0.1-20.0) H 05/27/16 18:00 Urine Sodium 46 mEq/L 05/27/16 18:00 Hepatitis A IgM Ab -1 (NonReactive) 05/30/16 12:00 Hep Bs Antigen Non-reactive (Negative) 05/30/16 12:00 Hep B Core IgM Ab Non-reactive (NonReactive) 05/30/16 12:00 Hepatitis C Antibody Non-reactive (NonReactive) 05/30/16 12:00 Blood Type O POSITIVE 05/30/16 08:25 Antibody Screen Negative 05/30/16 08:25 Crossmatch See Detail 05/30/16 08:25
[2016-05-31] MEDS: LEVOPHED 8 MG in NACL 0.9% 250ML 242 ML IV SCH (13:33)
[2016-05-31] MEDS: NACL 0.9% 1000 ML 1,000 ML IV SCH (13:41)
--- NOTE | 2016-05-31 15:53 | Event Note ---
Date: 05/31/16 No evidence of ongoing GI bleed. Rec as outlined, with CT once pt stable, to check for retroperitoneal hematoma. Meantime, monitor H/H and transfuse as needed. Minimize anticoagulants. Will sign off. Please call as needed. Thanks.
[2016-05-31] MEDS: SINGULAIR PO SCH (17:56)
[2016-05-31] MEDS: ZOCOR PO SCH (21:24)
[2016-05-31] MEDS: LEVEMIR SUB-Q SCH (21:48)
[2016-06-01] MEDS: NACL 0.9% 1000 ML 1,000 ML IV SCH ×2 (02:00→15:45)
[2016-06-01] MEDS: DUONEB 0.5 MG-3 MG/3 ML SOLN IH SCH ×4 (02:33→19:15)
[2016-06-01] MEDS: DILAUDID IV PRN ×2 (03:15→06:59)
[2016-06-01] MEDS: REGLAN IV SCH ×2 (03:46→14:13)
[2016-06-01 03:53] LABS: Hematocrit 31.2 % (35.5-45.6); Mean Corpuscular HGB Conc 32 % (32-34); Mean Corpuscular Hemoglobin 29 pg (28-32); Mean Corpuscular Volume 89 fl (84-94); Red Blood Count 3.51 M/mm3 (3.65-5.03); Red Cell Distribution Width 15.3 % (13.2-15.2)
[2016-06-01 04:06] LABS: White Blood Count 28.8 K/mm3 (4.5-11.0)
[2016-06-01 04:07] LABS: Platelet Count 42 K/mm3 (140-440)
[2016-06-01 04:18] LABS: Albumin 2.4 g/dL (3.9-5); Albumin/Globulin Ratio 1.3 %; BUN/Creatinine Ratio 24.87; Bilirubin,Total 0.4 mg/dL (0.1-1.2); Total Protein 4.3 g/dL (6.3-8.2)
[2016-06-01 04:19] LABS: Chloride 104.2 mmol/L (98-107)
[2016-06-01 04:25] LABS: Calcium 5.4 mg/dL (8.4-10.2)
[2016-06-01 04:42] LABS: ISTAT Base Excess -3; ISTAT HCO3 23.4; ISTAT PCO2 44.2 (35-45); ISTAT PH 7.332 (7.35-7.45); ISTAT PO2 56 (80-105); ISTAT SO2 87; ISTAT TCO2 25
[2016-06-01 04:54] LABS: Anisocytosis 1+; Basophils % (Manual) 0 % (0.0-1.8); Blastocytes % (Manual) 0 %; Eosinophils % (Manual) 0 % (0.0-4.3)
[2016-06-01 04:55] LABS: Diff Status Complete; Hypochromasia 1+; Platelet Estimate Consistent w Auto
[2016-06-01] MEDS: NOVOLOG SUB-Q SCH ×2 (08:39→17:27)
[2016-06-01] MEDS: PULMICORT IH SCH ×2 (09:00→19:15)
[2016-06-01] MEDS ORDERED: NACL 0.9% 1000 ML 100 ML IV PRN (09:16)
--- NOTE | 2016-06-01 09:18 | Progress Note ---
Assessment and Plan - Patient Problems (1) RUBIA (acute kidney injury) Current Visit: Yes Status: Acute Plan to address problem: Acute Kidney Injury superimposed on CKD stage 3 in the setting of hypotension and anemia. Patient was off levophed today morning but started back on. Patient was started on hemodialysis 2 days ago due to worsening renal function, oliguria and Hyperkalemia. Due to tachycardia and unstable BP will hold off hemodialysis since the potential risks outweighs benefits. 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 Renal prognosis guarded. (2) Shock Current Visit: Yes Status: Acute Plan to address problem: On Levophed. (3) Lactic acidosis Current Visit: Yes Status: Acute (4) Acute on chronic respiratory failure with hypoxemia Current Visit: Yes Status: Acute Plan to address problem: On vent. (5) Anemia Current Visit: Yes Status: Acute Plan to address problem: S/p PRBC. (6) Shock liver Current Visit: Yes Status: Acute Plan to address problem: LFTs improving. Subjective Date of service: 06/01/16 Principal diagnosis: Acute on Chronic Hypoxemic Respiratory Failure Interval history: Patient remain on the vent. Objective - Vital Signs Vital signs: Vital Signs - 12hr 05/31/16 05/31/16 05/31/16 21:30 21:45 22:00 Temperature Pulse Rate 129 H 127 H 124 H Pulse Rate [ Anterior Bilateral Throughout] Pulse Rate [ From Monitor] Respiratory 22 18 14 Rate Respiratory Rate [Anterior Bilateral Throughout] Blood Pressure 147/63 134/56 134/56 O2 Sat by Pulse 98 98 98 Oximetry 05/31/16 05/31/16 05/31/16 22:06 22:08 22:15 Temperature Pulse Rate 125 H 125 H 124 H Pulse Rate [ Anterior Bilateral Throughout] Pulse Rate [ From Monitor] Respiratory 16 15 15 Rate Respiratory Rate [Anterior Bilateral Throughout] Blood Pressure 130/57 130/57 122/55 O2 Sat by Pulse 98 98 98 Oximetry 05/31/16 05/31/16 05/31/16 22:30 22:45 23:00 Temperature Pulse Rate 119 H 116 H 114 H Pulse Rate [ Anterior Bilateral Throughout] Pulse Rate [ From Monitor] Respiratory 15 15 15 Rate Respiratory Rate [Anterior Bilateral Throughout] Blood Pressure 111/52 115/54 120/51 O2 Sat by Pulse 98 99 99 Oximetry 05/31/16 05/31/16 05/31/16 23:15 23:30 23:45 Temperature Pulse Rate 113 H 114 H 112 H Pulse Rate [ Anterior Bilateral Throughout] Pulse Rate [ From Monitor] Respiratory 16 14 16 Rate Respiratory Rate [Anterior Bilateral Throughout] Blood Pressure 110/55 117/55 112/54 O2 Sat by Pulse 99 99 99 Oximetry 06/01/16 06/01/16 06/01/16 00:00 00:16 00:18 Temperature Pulse Rate 135 H 125 H 125 H Pulse Rate [ Anterior Bilateral Throughout] Pulse Rate [ 123 H From Monitor] Respiratory 13 18 15 Rate Respiratory Rate [Anterior Bilateral Throughout] Blood Pressure 151/69 122/61 122/61 O2 Sat by Pulse 99 99 98 Oximetry 06/01/16 06/01/16 06/01/16 00:30 00:45 01:00 Temperature Pulse Rate 124 H 126 H 127 H Pulse Rate [ Anterior Bilateral Throughout] Pulse Rate [ From Monitor] Respiratory 21 21 20 Rate Respiratory Rate [Anterior Bilateral Throughout] Blood Pressure 141/63 147/62 147/62 O2 Sat by Pulse 99 99 99 Oximetry 06/01/16 06/01/16 06/01/16 01:12 01:15 01:19 Temperature 98.3 F Pulse Rate 126 H 124 H Pulse Rate [ Anterior Bilateral Throughout] Pulse Rate [ From Monitor] Respiratory 15 17 Rate Respiratory Rate [Anterior Bilateral Throughout] Blood Pressure 142/60 127/52 O2 Sat by Pulse 99 99 Oximetry 06/01/16 06/01/16 06/01/16 01:30 01:45 02:00 Temperature Pulse Rate 125 H 128 H 129 H Pulse Rate [ Anterior Bilateral Throughout] Pulse Rate [ From Monitor] Respiratory 17 21 23 Rate Respiratory Rate [Anterior Bilateral Throughout] Blood Pressure 138/54 139/57 139/57 O2 Sat by Pulse 99 99 99 Oximetry 06/01/16 06/01/16 06/01/16 02:15 02:30 02:45 Temperature Pulse Rate 133 H 134 H 134 H Pulse Rate [ Anterior Bilateral Throughout] Pulse Rate [ From Monitor] Respiratory 23 25 H 27 H Rate Respiratory Rate [Anterior Bilateral Throughout] Blood Pressure 152/65 151/69 153/65 O2 Sat by Pulse 99 99 99 Oximetry 06/01/16 06/01/16 06/01/16 03:00 03:15 03:16 Temperature Pulse Rate 136 H 139 H Pulse Rate [ Anterior Bilateral Throughout] Pulse Rate [ From Monitor] Respiratory 27 H 24 29 H Rate Respiratory Rate [Anterior Bilateral Throughout] Blood Pressure 153/65 153/65 O2 Sat by Pulse 99 99 Oximetry 06/01/16 06/01/16 06/01/16 03:30 03:45 04:00 Temperature Pulse Rate 136 H 136 H 135 H Pulse Rate [ Anterior Bilateral Throughout] Pulse Rate [ 135 H From Monitor] Respiratory 26 H 28 H 28 H Rate Respiratory Rate [Anterior Bilateral Throughout] Blood Pressure 127/57 140/64 140/64 O2 Sat by Pulse 99 99 98 Oximetry 06/01/16 06/01/16 06/01/16 04:10 04:15 04:30 Temperature Pulse Rate 137 H 135 H 137 H Pulse Rate [ Anterior Bilateral Throughout] Pulse Rate [ From Monitor] Respiratory 28 H 25 H 22 Rate Respiratory Rate [Anterior Bilateral Throughout] Blood Pressure 137/63 135/58 135/58 O2 Sat by Pulse 99 99 99 Oximetry 06/01/16 06/01/16 06/01/16 04:46 05:00 05:16 Temperature Pulse Rate 138 H 139 H 139 H Pulse Rate [ Anterior Bilateral Throughout] Pulse Rate [ From Monitor] Respiratory 28 H 30 H 33 H Rate Respiratory Rate [Anterior Bilateral Throughout] Blood Pressure 135/63 135/63 136/70 O2 Sat by Pulse 98 99 99 Oximetry 06/01/16 06/01/16 06/01/16 05:30 05:45 06:00 Temperature Pulse Rate 139 H 139 H 139 H Pulse Rate [ Anterior Bilateral Throughout] Pulse Rate [ From Monitor] Respiratory 35 H 34 H 31 H Rate Respiratory Rate [Anterior Bilateral Throughout] Blood Pressure 134/63 135/69 151/71 O2 Sat by Pulse 98 98 98 Oximetry 06/01/16 06/01/16 06/01/16 06:15 06:30 06:45 Temperature Pulse Rate 140 H 140 H 141 H Pulse Rate [ Anterior Bilateral Throughout] Pulse Rate [ From Monitor] Respiratory 32 H 25 H 34 H Rate Respiratory Rate [Anterior Bilateral Throughout] Blood Pressure 149/71 149/71 150/75 O2 Sat by Pulse 99 99 99 Oximetry 06/01/16 06/01/16 06/01/16 07:00 07:16 07:44 Temperature 100.7 F H Pulse Rate 136 H 137 H Pulse Rate [ Anterior Bilateral Throughout] Pulse Rate [ From Monitor] Respiratory 26 H 27 H Rate Respiratory Rate [Anterior Bilateral Throughout] Blood Pressure 150/75 121/51 O2 Sat by Pulse 98 98 Oximetry 06/01/16 06/01/16 09:00 09:08 Temperature Pulse Rate 139 H Pulse Rate [ 132 H 132 H Anterior Bilateral Throughout] Pulse Rate [ From Monitor] Respiratory Rate Respiratory 28 H 28 H Rate [Anterior Bilateral Throughout] Blood Pressure 133/64 O2 Sat by Pulse 99 Oximetry - General Appearance General appearance: well-developed, well-nourished, obese, sedated on ventilator (FiO2 35%), intubated, other (right groin hemodialysis catheter noted ) EENT: PERRL Neck: supple Respiratory: Present: Wheezes Cardiology: regular, tachycardia, S1S2 Gastrointestinal: normoactive bowel sounds, no tenderness, no distended, no guarding, obese Integumentary: no rash Neurologic: other (sedated, opens eyes) Musculoskeletal: other (no edema) Psychiatric: other (sedated) - Lab 06/01/16 03:35 06/01/16 03:35 Most recent lab results Calcium 5.4 mg/dL (8.4-10.2) L* 06/01/16 03:35 Phosphorus 6.6 mg/dL (2.5-4.5) H 05/30/16 05:30 Urine Creatinine 69.9 mg/dL (0.1-20.0) H 05/27/16 18:00 Urine Sodium 46 mEq/L 05/27/16 18:00
--- NOTE | 2016-06-01 09:23 | XRay Report ---
AP CHEST: HISTORY: Follow-up respiratory failure. FINDINGS: Lines and support devices are unchanged since yesterday's exam. Mild bibasilar atelectasis has developed. The upper lung zones are clear. Normal heart size and borderline pulmonary venous congestion are stable. IMPRESSION: Mild bibasilar atelectasis has developed. Otherwise, no change.
[2016-06-01] MEDS: fentaNYL DRIP Premix 100 ML IV SCH ×2 (10:01→18:30)
[2016-06-01] MEDS: PROTONIX PO SCH (10:05)
[2016-06-01] MEDS ORDERED: VANCOMYCIN PHARMACY TO DOSE IV SCH (11:00)
--- NOTE | 2016-06-01 11:48 | Progress Note ---
Assessment and Plan Assessment and plan: Echocardiogram from May 26 shows diastolic dysfunction, systolic dysfunction is grossly normal Patient is a 80-year-old man with a history of type 2 diabetes mellitus, hypertension, dyslipidemia and chronic respiratory failure on 3 L oxygen at home due to COPD who presented with shortness breath and a cough on 05/22/2016. He was admitted for COPD exacerbation, He was placed on BiPAP. And then intubated on May 26, 2016. So, he was treated with iv heparin for suspected thromboembolism while awaiting VQ scan versus CTA chest. During his hospital course hematocrit started dropping, requiring blood transfusion and consultation with gastroenterology. Also, Renal function is deteriorating questionable needing dialysis Acute on chronic hypoxic respiratory failure/ COPD exacerbation Continue abx, continue steroids and nebulizer treatments, continue daily chest x -ray, patient will benefit from a trial of Lasix Acute blood loss anemia No sign of acute blood loss, most likely due to sepsis/acute illness. Patient has been transfused, and heparin was discontinued. Patient will most likely benefit from retroperitoneal CT when clinically stable Acute kidney injury- Status post Vas-Cath placement, and has received renal replacement therapy Diabetes mellitus uncontrolled Continuing insulin Abdominal distention Obtain a KUB, suspect SBO, will put OG tube to suction Sepsis obtain UA, blood cx, CXR did not show infiltrate, add zosyn vanc Critical care time spent: 35 minutes History Interval history: The patient has been weaned off levo fed drip. He continues to have abdominal distention, he continues to appear to have distress with breathing. He spiked fevers overnight. He remains tachycardic. Hospitalist Physical - Physical exam Narrative exam: General: Moderate respiratory distress, taking deep breaths with sighs HEENT: MMM, EOMI cardiac: S1-S2 heard lungs: Bibasilar crackles, ventilated breath sounds abdomen: Distended, bowel sounds positive extremities: 2+ edema in all extremities Skin: no rash or lesion Neuro: Intubated sedated - Constitutional Vitals: Temp Pulse Resp BP Pulse Ox 100.7 F H 132 H 28 H 133/64 99 06/01/16 07:44 06/01/16 09:08 06/01/16 09:08 06/01/16 09:00 06/01/16 09:00 General appearance: Present: no acute distress Results - Labs CBC & Chem 7: 06/01/16 03:35 06/01/16 03:35 Labs: Laboratory Last Values WBC 28.8 K/mm3 (4.5-11.0) H 06/01/16 03:35 RBC 3.51 M/mm3 (3.65-5.03) L 06/01/16 03:35 Hgb 10.0 gm/dl (11.8-15.2) L 06/01/16 03:35 Hct 31.2 % (35.5-45.6) L 06/01/16 03:35 MCV 89 fl (84-94) 06/01/16 03:35 MCH 29 pg (28-32) 06/01/16 03:35 MCHC 32 % (32-34) 06/01/16 03:35 RDW 15.3 % (13.2-15.2) H 06/01/16 03:35 Plt Count 42 K/mm3 (140-440) L 06/01/16 03:35 Lymph % (Auto) 13.0 % (13.4-35.0) L 05/22/16 14:25 [place] % (Auto) 13.1 % (0.0-7.3) H 05/22/16 14:25 Eos % (Auto) 1.1 % (0.0-4.3) 05/22/16 14:25 Baso % (Auto) 0.6 % (0.0-1.8) 05/22/16 14:25 Lymph # 0.8 K/mm3 (1.2-5.4) L 05/22/16 14:25 [place] # 0.8 K/mm3 (0.0-0.8) 05/22/16 14:25 Eos # 0.1 K/mm3 (0.0-0.4) 05/22/16 14:25 Baso # 0.0 K/mm3 (0.0-0.1) 05/22/16 14:25 Add Manual Diff Complete 06/01/16 03:35 Total Counted 100 06/01/16 03:35 Seg Neutrophils % Dairy Helper 06/01/16 03:35 Seg Neuts % (Manual) 74.0 % (40.0-70.0) H 06/01/16 03:35 Band Neutrophils % 15.0 % 06/01/16 03:35 Lymphocytes % (Manual) 3.0 % (13.4-35.0) L 06/01/16 03:35 Reactive Lymphs % (Man) 0 % 06/01/16 03:35 Monocytes % (Manual) 6.0 % (0.0-7.3) 06/01/16 03:35 Eosinophils % (Manual) 0 % (0.0-4.3) 06/01/16 03:35 Basophils % (Manual) 0 % (0.0-1.8) 06/01/16 03:35 Metamyelocytes % 2.0 % 06/01/16 03:35 Myelocytes % 0 % 06/01/16 03:35 Promyelocytes % 0 % 06/01/16 03:35 Blast Cells % 0 % 06/01/16 03:35 Nucleated RBC % 2.0 % (0.0-0.9) H 06/01/16 03:35 Seg Neutrophils # 4.4 K/mm3 (1.8-7.7) 05/22/16 14:25 Seg Neutrophils # Man 21.3 K/mm3 (1.8-7.7) H 06/01/16 03:35 Band Neutrophils # 4.3 K/mm3 06/01/16 03:35 Lymphocytes # (Manual) 0.9 K/mm3 (1.2-5.4) L 06/01/16 03:35 Abs React Lymphs (Man) 0.0 K/mm3 06/01/16 03:35 Monocytes # (Manual) 1.7 K/mm3 (0.0-0.8) H 06/01/16 03:35 Eosinophils # (Manual) 0.0 K/mm3 (0.0-0.4) 06/01/16 03:35 Basophils # (Manual) 0.0 K/mm3 (0.0-0.1) 06/01/16 03:35 Metamyelocytes # 0.6 K/mm3 06/01/16 03:35 Myelocytes # 0.0 K/mm3 06/01/16 03:35 Promyelocytes # 0.0 K/mm3 06/01/16 03:35 Blast Cells # 0.0 K/mm3 06/01/16 03:35 WBC Morphology Not Reportable 06/01/16 03:35 Hypersegmented Neuts Not Reportable 06/01/16 03:35 Hyposegmented Neuts Not Reportable 06/01/16 03:35 Hypogranular Neuts Not Reportable 06/01/16 03:35 Smudge Cells Not Reportable 06/01/16 03:35 Toxic Granulation Not Reportable 06/01/16 03:35 Toxic Vacuolation Not Reportable 06/01/16 03:35 Dohle Bodies Not Reportable 06/01/16 03:35 Pelger-Huet Anomaly Not Reportable 06/01/16 03:35 Bari Rods Not Reportable 06/01/16 03:35 Platelet Estimate Consistent w auto 06/01/16 03:35 Clumped Platelets Not Reportable 06/01/16 03:35 Plt Clumps, EDTA Not Reportable 06/01/16 03:35 Large Platelets Not Reportable 06/01/16 03:35 Giant Platelets Not Reportable 06/01/16 03:35 Platelet Satelliting Not Reportable 06/01/16 03:35 Plt Morphology Comment Not Reportable 06/01/16 03:35 RBC Morphology Not Reportable 06/01/16 03:35 Dimorphic RBCs Not Reportable 06/01/16 03:35 Polychromasia Not Reportable 06/01/16 03:35 Hypochromasia 1+ 06/01/16 03:35 Poikilocytosis Not Reportable 06/01/16 03:35 Anisocytosis 1+ 06/01/16 03:35 Microcytosis Not Reportable 06/01/16 03:35 Macrocytosis Not Reportable 06/01/16 03:35 Spherocytes Not Reportable 06/01/16 03:35 Pappenheimer Bodies Not Reportable 06/01/16 03:35 Sickle Cells Not Reportable 06/01/16 03:35 Target Cells Not Reportable 06/01/16 03:35 Tear Drop Cells Not Reportable 06/01/16 03:35 Ovalocytes Not Reportable 06/01/16 03:35 Helmet Cells Not Reportable 06/01/16 03:35 [place] Bodies Not Reportable 06/01/16 03:35 [place] Rings Not Reportable 06/01/16 03:35 Benny Cells Not Reportable 06/01/16 03:35 Bite Cells Not Reportable 06/01/16 03:35 Crenated Cell Not Reportable 06/01/16 03:35 Elliptocytes Not Reportable 06/01/16 03:35 Acanthocytes (Spur) Not Reportable 06/01/16 03:35 Rouleaux Not Reportable 06/01/16 03:35 Hemoglobin C Crystals Not Reportable 06/01/16 03:35 Schistocytes Not Reportable 06/01/16 03:35 Malaria parasites Not Reportable 06/01/16 03:35 Andrea Bodies Not Reportable 06/01/16 03:35 Hem Pathologist Commnt No 06/01/16 03:35 PT 13.4 Sec. (12.2-14.9) 05/25/16 13:38 INR 1.03 (0.87-1.13) 05/25/16 13:38 APTT 29.5 Sec. (24.2-36.6) 05/25/16 13:38 D-Dimer 239.48 ng/mlDDU (0-234) H 05/23/16 14:16 Heparin Anti-Xa Level 1.35 U.I./ml (0.3-0.7) H 05/26/16 15:47 POC ABG pH 7.332 (7.35-7.45) L 06/01/16 04:16 POC ABG pCO2 44.2 (35-45) 06/01/16 04:16 POC ABG pO2 56 (80-105) L 06/01/16 04:16 POC ABG HCO3 23.4 06/01/16 04:16 POC ABG Total CO2 25 06/01/16 04:16 POC ABG O2 Sat 87 06/01/16 04:16 POC ABG Base Excess -3 06/01/16 04:16 VBG pH 7.403 (7.320-7.420) 05/22/16 14:24 FiO2 35 % 06/01/16 04:16 Sodium 141 mmol/L (137-145) D 06/01/16 03:35 Potassium 5.0 mmol/L (3.6-5.0) 06/01/16 03:35 Chloride 104.2 mmol/L (98-107) 06/01/16 03:35 Carbon Dioxide 21 mmol/L (22-30) L 06/01/16 03:35 Anion Gap 21 mmol/L 06/01/16 03:35 BUN 97 mg/dL (9-20) H 06/01/16 03:35 Creatinine 3.9 mg/dL (0.8-1.5) H 06/01/16 03:35 Estimated GFR 15 ml/min 06/01/16 03:35 BUN/Creatinine Ratio 24.87 % 06/01/16 03:35 Glucose 206 mg/dL (75-100) H 06/01/16 03:35 POC Glucose 232 (70-105) H 06/01/16 07:31 Hemoglobin A1c 6.4 % (4-6) H 05/23/16 06:02 Lactic Acid 1.2 mmol/L (0.7-2.0) 05/31/16 13:45 Calcium 5.4 mg/dL (8.4-10.2) L* 06/01/16 03:35 Phosphorus 6.6 mg/dL (2.5-4.5) H 05/30/16 05:30 Total Bilirubin 0.4 mg/dL (0.1-1.2) 06/01/16 03:35 Direct Bilirubin 0.2 mg/dL (0-0.2) 05/27/16 18:25 Indirect Bilirubin 0.2 mg/dL 05/27/16 18:25 AST 70 units/L (5-40) H 06/01/16 03:35 ALT 732 units/L (7-56) H 06/01/16 03:35 Alkaline Phosphatase 103 units/L (35-129) 06/01/16 03:35 Total Creatine Kinase 1486 units/L (55-170) H 05/31/16 05:50 CK-MB (CK-2) 2.1 ng/mL (0.0-4.0) 05/22/16 14:24 CK-MB (CK-2) Rel Index 3.9 (0-4) 05/22/16 14:24 Troponin T 0.023 ng/mL (0.00-0.029) 05/22/16 14:24 C-Reactive Protein 4.10 mg/dL (0.00-1.30) H 05/31/16 13:45 NT-Pro-B Natriuret Pep 316.0 pg/mL (0-900) 05/22/16 14:24 Total Protein 4.3 g/dL (6.3-8.2) L 06/01/16 03:35 Albumin 2.4 g/dL (3.9-5) L 06/01/16 03:35 Albumin/Globulin Ratio 1.3 % 06/01/16 03:35 Urine Color Yellow (Yellow) 05/22/16 22:30 Urine Turbidity Clear (Clear) 05/22/16 22:30 Urine pH 5.0 (5.0-7.0) 05/22/16 22:30 Ur Specific [place] 1.016 (1.003-1.030) 05/22/16 22:30 Urine Protein 30 mg/dl mg/dL (Negative) 05/22/16 22:30 Urine Glucose (UA) Neg mg/dL (Negative) 05/22/16 22:30 Urine Ketones Tr mg/dL (Negative) 05/22/16 22:30 Urine Blood Neg (Negative) 05/22/16 22:30 Urine Nitrite Neg (Negative) 05/22/16 22:30 Urine Bilirubin Neg (Negative) 05/22/16 22:30 Urine Urobilinogen < 2.0 mg/dL (<2.0) 05/22/16 22:30 Ur Leukocyte Esterase Neg (Negative) 05/22/16 22:30 Urine WBC (Auto) 3.0 /HPF (0.0-6.0) 05/22/16 22:30 Urine RBC (Auto) 1.0 /HPF (0.0-6.0) 05/22/16 22:30 U Epithel Cells (Auto) < 1.0 /HPF (0-13.0) 05/22/16 22:30 Hyaline Casts 1 /LPF 05/22/16 22:30 Urine Mucus Few /HPF 05/22/16 22:30 Urine Creatinine 69.9 mg/dL (0.1-20.0) H 05/27/16 18:00 Urine Sodium 46 mEq/L 05/27/16 18:00 Hepatitis A IgM Ab -1 (NonReactive) 05/30/16 12:00 Hep Bs Antigen Non-reactive (Negative) 05/30/16 12:00 Hep B Core IgM Ab Non-reactive (NonReactive) 05/30/16 12:00 Hepatitis C Antibody Non-reactive (NonReactive) 05/30/16 12:00 Blood Type O POSITIVE 05/30/16 08:25 Antibody Screen Negative 05/30/16 08:25 Crossmatch See Detail 05/30/16 08:25
--- NOTE | 2016-06-01 11:54 | Progress Note ---
Assessment and Plan - Patient Problems (1) Acute exacerbation of chronic obstructive pulmonary disease (COPD) Current Visit: Yes Status: Acute Plan to address problem: - continue supplemental oxygen to keep sats >/= 92% - continue empiric AB's and follow cultures - continue ALIN and LABA - continue systemic steroids with slow taper - complete VTE w/up (Unable to do VQ or CTA re: azotemia - repeat ABG prn - Holding on weaning till more stable - failed bedside SBT - add versed and increase sedation for now with daily sedation vacations (2) Acute on chronic respiratory failure with hypoxemia Current Visit: Yes Status: Acute Plan to address problem: - as above - continue aspiration precautions / VAP bundles - continue bronchodilators and pulmonary toilet - resume fentanyl drip for sedation/analgesia - get KUB and decompress abdomen if necessary (will give simethicone in short term +/- reglan) - added seroquel and prn xanax for anxiolysis - resumed IV versed (3) Obesity Current Visit: Yes Status: Acute Plan to address problem: - weight loss - outpatient PSG (4) Sepsis syndrome Current Visit: Yes Status: Acute Plan to address problem: - CRP unremarkable - Lactate trended down - hold on broadening AB's - get labs and r/o significant bleeding occultly - aggressive volume resuscitation - central venous access obtained - stopped alkalanized fluids - switch to more conservative volume management at this point - continue to follow off AB's - continue to wean levophed to keep MAP > 60-65mmHg (5) Anemia Current Visit: Yes Status: Acute Plan to address problem: - suspect inappropriate rise in Hb post 2 units PRBC's is due to hemodilution - will follow and hold on transfusion except Hb < 7.0 at this point - GI evaluation noted - change to bid PPI dosing - H&H holding - CBC in am (6) RUBIA (acute kidney injury) Current Visit: Yes Status: Acute Plan to address problem: - will consult nephrology sooner rather than later - likely ATN component in setting of IVVD - nephrology consulted and evaluation ongoing - oliguria developing now - will get vascath - discussed with [facility] and will likely need [facility] - tolerated Dialysis - still making some urine - HD/UF held today due to tachycardia per nephrology (7) Thrombocytopenia Current Visit: Yes Status: Acute Plan to address problem: - likely related to sepsis and azotemia - stopped heparinoids - sent HIT assay (8) Tachycardia Current Visit: Yes Status: Acute Plan to address problem: - 12 lead EKG - consulted cardiology (9) Discharge planning issues Current Visit: Yes Status: Acute Plan to address problem: - weaning tenuously not unexpectedly so far; if does not wean well may need LTAC evaluation but not at this point ...he is critically ill on life sustaining interventions including MVS and at high risk for further deterioration including ...35' CCT Subjective Date of service: 06/01/16 Principal diagnosis: Acute on Chronic Hypoxemic Respiratory Failure Interval history: seen and examined at bedside; 24hour events reviewed; nursing and respiratory care staff consulted; no adverse overnight events reported to me; agitated with increased work of breathing today; + tachycardia Objective Vital Signs - 12hr 06/01/16 06/01/16 06/01/16 00:00 00:16 00:18 Temperature Pulse Rate 135 H 125 H 125 H Pulse Rate [ Anterior Bilateral Throughout] Pulse Rate [ 123 H From Monitor] Respiratory 13 18 15 Rate Respiratory Rate [Anterior Bilateral Throughout] Blood Pressure 151/69 122/61 122/61 O2 Sat by Pulse 99 99 98 Oximetry 06/01/16 06/01/16 06/01/16 00:30 00:45 01:00 Temperature Pulse Rate 124 H 126 H 127 H Pulse Rate [ Anterior Bilateral Throughout] Pulse Rate [ From Monitor] Respiratory 21 21 20 Rate Respiratory Rate [Anterior Bilateral Throughout] Blood Pressure 141/63 147/62 147/62 O2 Sat by Pulse 99 99 99 Oximetry 06/01/16 06/01/16 06/01/16 01:12 01:15 01:19 Temperature 98.3 F Pulse Rate 126 H 124 H Pulse Rate [ Anterior Bilateral Throughout] Pulse Rate [ From Monitor] Respiratory 15 17 Rate Respiratory Rate [Anterior Bilateral Throughout] Blood Pressure 142/60 127/52 O2 Sat by Pulse 99 99 Oximetry 06/01/16 06/01/16 06/01/16 01:30 01:45 02:00 Temperature Pulse Rate 125 H 128 H 129 H Pulse Rate [ Anterior Bilateral Throughout] Pulse Rate [ From Monitor] Respiratory 17 21 23 Rate Respiratory Rate [Anterior Bilateral Throughout] Blood Pressure 138/54 139/57 139/57 O2 Sat by Pulse 99 99 99 Oximetry 06/01/16 06/01/1617 02:15 02:30 02:45 Temperature Pulse Rate 133 H 134 H 134 H Pulse Rate [ Anterior Bilateral Throughout] Pulse Rate [ From Monitor] Respiratory 23 25 H 27 H Rate Respiratory Rate [Anterior Bilateral Throughout] Blood Pressure 152/65 151/69 153/65 O2 Sat by Pulse 99 99 99 Oximetry 06/01/16 06/01/16 06/01/16 03:00 03:15 03:16 Temperature Pulse Rate 136 H 139 H Pulse Rate [ Anterior Bilateral Throughout] Pulse Rate [ From Monitor] Respiratory 27 H 24 29 H Rate Respiratory Rate [Anterior Bilateral Throughout] Blood Pressure 153/65 153/65 O2 Sat by Pulse 99 99 Oximetry 06/01/16 06/01/16 06/01/16 03:30 03:45 04:00 Temperature Pulse Rate 136 H 136 H 135 H Pulse Rate [ Anterior Bilateral Throughout] Pulse Rate [ 135 H From Monitor] Respiratory 26 H 28 H 28 H Rate Respiratory Rate [Anterior Bilateral Throughout] Blood Pressure 127/57 140/64 140/64 O2 Sat by Pulse 99 99 98 Oximetry 06/01/16 06/01/16 06/01/16 04:10 04:15 04:30 Temperature Pulse Rate 137 H 135 H 137 H Pulse Rate [ Anterior Bilateral Throughout] Pulse Rate [ From Monitor] Respiratory 28 H 25 H 22 Rate Respiratory Rate [Anterior Bilateral Throughout] Blood Pressure 137/63 135/58 135/58 O2 Sat by Pulse 99 99 99 Oximetry 06/01/16 06/01/16 06/01/16 04:46 05:00 05:16 Temperature Pulse Rate 138 H 139 H 139 H Pulse Rate [ Anterior Bilateral Throughout] Pulse Rate [ From Monitor] Respiratory 28 H 30 H 33 H Rate Respiratory Rate [Anterior Bilateral Throughout] Blood Pressure 135/63 135/63 136/70 O2 Sat by Pulse 98 99 99 Oximetry 06/01/16 06/01/16 06/01/16 05:30 05:45 06:00 Temperature Pulse Rate 139 H 139 H 139 H Pulse Rate [ Anterior Bilateral Throughout] Pulse Rate [ From Monitor] Respiratory 35 H 34 H 31 H Rate Respiratory Rate [Anterior Bilateral Throughout] Blood Pressure 134/63 135/69 151/71 O2 Sat by Pulse 98 98 98 Oximetry 06/01/16 06/01/16 06/01/16 06:15 06:30 06:45 Temperature Pulse Rate 140 H 140 H 141 H Pulse Rate [ Anterior Bilateral Throughout] Pulse Rate [ From Monitor] Respiratory 32 H 25 H 34 H Rate Respiratory Rate [Anterior Bilateral Throughout] Blood Pressure 149/71 149/71 150/75 O2 Sat by Pulse 99 99 99 Oximetry 06/01/16 06/01/16 06/01/16 07:00 07:16 07:44 Temperature 100.7 F H Pulse Rate 136 H 137 H Pulse Rate [ Anterior Bilateral Throughout] Pulse Rate [ From Monitor] Respiratory 26 H 27 H Rate Respiratory Rate [Anterior Bilateral Throughout] Blood Pressure 150/75 121/51 O2 Sat by Pulse 98 98 Oximetry 06/01/16 06/01/16 09:00 09:08 Temperature Pulse Rate 139 H Pulse Rate [ 132 H 132 H Anterior Bilateral Throughout] Pulse Rate [ From Monitor] Respiratory Rate Respiratory 28 H 28 H Rate [Anterior Bilateral Throughout] Blood Pressure 133/64 O2 Sat by Pulse 99 Oximetry Constitutional: no acute distress, other (sedated) Eyes: non-icteric ENT: oropharynx moist Neck: supple, no lymphadenopathy Effort: very labored Ascultation: Bilateral: diminished breath sounds, rales (bases) Cardiovascular: regular rate and rhythm Gastrointestinal: normoactive bowel sounds, non-tender, other (distended, firm but not tense) Integumentary: normal Extremities: no cyanosis, no edema, pink and warm, pulses normal Neurologic: normal mental status, non-focal exam, pupils equal and round, motor strength normal and, unable to assess Psychiatric: other (sedated) CBC and BMP: 06/02/16 04:00 06/02/16 04:00 ABG, PT/INR, D-dimer: ABG POC ABG pH 7.332 (7.35-7.45) L 06/01/16 04:16 POC ABG pCO2 44.2 (35-45) 06/01/16 04:16 POC ABG pO2 56 (80-105) L 06/01/16 04:16 POC ABG HCO3 23.4 06/01/16 04:16 POC ABG Total CO2 25 06/01/16 04:16 POC ABG O2 Sat 87 06/01/16 04:16 PT/INR, D-dimer PT 13.4 Sec. (12.2-14.9) 05/25/16 13:38 INR 1.03 (0.87-1.13) 05/25/16 13:38 D-Dimer 239.48 ng/mlDDU (0-234) H 05/23/16 14:16 Abnormal lab findings: Abnormal Labs 05/23/16 05/23/16 05/23/16 06:02 09:35 11:22 WBC RBC Hgb Hct RDW Plt Count Seg Neuts % (Manual) Lymphocytes % (Manual) Nucleated RBC % Seg Neutrophils # Man Lymphocytes # (Manual) Monocytes # (Manual) D-Dimer Heparin Anti-Xa Level POC ABG pH POC ABG pCO2 POC ABG pO2 Sodium Potassium Chloride Carbon Dioxide BUN Creatinine Glucose POC Glucose 174 H 232 H Hemoglobin A1c 6.4 H Lactic Acid Calcium Phosphorus AST ALT Total Creatine Kinase C-Reactive Protein Total Protein Albumin Urine Creatinine Crossmatch 05/23/16 05/23/16 05/23/16 14:16 16:07 22:23 WBC RBC Hgb Hct RDW Plt Count Seg Neuts % (Manual) Lymphocytes % (Manual) Nucleated RBC % Seg Neutrophils # Man Lymphocytes # (Manual) Monocytes # (Manual) D-Dimer 239.48 H Heparin Anti-Xa Level POC ABG pH POC ABG pCO2 POC ABG pO2 Sodium Potassium Chloride Carbon Dioxide BUN Creatinine Glucose POC Glucose 126 H 171 H Hemoglobin A1c Lactic Acid Calcium Phosphorus AST ALT Total Creatine Kinase C-Reactive Protein Total Protein Albumin Urine Creatinine Crossmatch 05/24/16 05/24/16 05/24/16 08:08 08:08 08:19 WBC RBC 3.24 L Hgb 9.6 L Hct 28.6 L RDW 15.7 H Plt Count Seg Neuts % (Manual) 71.0 H Lymphocytes % (Manual) 7.0 L Nucleated RBC % Seg Neutrophils # Man Lymphocytes # (Manual) 0.8 L Monocytes # (Manual) D-Dimer Heparin Anti-Xa Level POC ABG pH POC ABG pCO2 POC ABG pO2 Sodium 132 L Potassium Chloride 93.9 L Carbon Dioxide 18 L BUN 39 H Creatinine Glucose 166 H POC Glucose 173 H Hemoglobin A1c Lactic Acid Calcium Phosphorus AST ALT Total Creatine Kinase C-Reactive Protein Total Protein Albumin Urine Creatinine Crossmatch 05/24/16 05/24/16 05/24/16 11:55 17:15 22:18 WBC RBC Hgb Hct RDW Plt Count Seg Neuts % (Manual) Lymphocytes % (Manual) Nucleated RBC % Seg Neutrophils # Man Lymphocytes # (Manual) Monocytes # (Manual) D-Dimer Heparin Anti-Xa Level POC ABG pH POC ABG pCO2 POC ABG pO2 Sodium Potassium Chloride Carbon Dioxide BUN Creatinine Glucose POC Glucose 210 H 147 H 163 H Hemoglobin A1c Lactic Acid Calcium Phosphorus AST ALT Total Creatine Kinase C-Reactive Protein Total Protein Albumin Urine Creatinine Crossmatch 05/25/16 05/25/16 05/25/16 08:43 13:38 14:19 WBC RBC Hgb 10.0 L Hct 30.4 L RDW Plt Count Seg Neuts % (Manual) Lymphocytes % (Manual) Nucleated RBC % Seg Neutrophils # Man Lymphocytes # (Manual) Monocytes # (Manual) D-Dimer Heparin Anti-Xa Level POC ABG pH POC ABG pCO2 POC ABG pO2 Sodium Potassium Chloride Carbon Dioxide BUN Creatinine Glucose POC Glucose 177 H 180 H Hemoglobin A1c Lactic Acid Calcium Phosphorus AST ALT Total Creatine Kinase C-Reactive Protein Total Protein Albumin Urine Creatinine Crossmatch 05/25/16 05/25/16 05/25/16 16:16 16:25 21:32 WBC RBC Hgb Hct RDW Plt Count Seg Neuts % (Manual) Lymphocytes % (Manual) Nucleated RBC % Seg Neutrophils # Man Lymphocytes # (Manual) Monocytes # (Manual) D-Dimer Heparin Anti-Xa Level POC ABG pH POC ABG pCO2 34.3 L POC ABG pO2 114 H Sodium Potassium Chloride Carbon Dioxide BUN Creatinine Glucose POC Glucose 193 H 183 H Hemoglobin A1c Lactic Acid Calcium Phosphorus AST ALT Total Creatine Kinase C-Reactive Protein Total Protein Albumin Urine Creatinine Crossmatch 05/26/16 05/26/16 05/26/16 00:06 07:42 10:17 WBC RBC Hgb Hct RDW Plt Count Seg Neuts % (Manual) Lymphocytes % (Manual) Nucleated RBC % Seg Neutrophils # Man Lymphocytes # (Manual) Monocytes # (Manual) D-Dimer Heparin Anti-Xa Level 1.23 H 0.98 H POC ABG pH POC ABG pCO2 POC ABG pO2 Sodium Potassium Chloride Carbon Dioxide BUN Creatinine Glucose POC Glucose 206 H Hemoglobin A1c Lactic Acid Calcium Phosphorus AST ALT Total Creatine Kinase C-Reactive Protein Total Protein Albumin Urine Creatinine Crossmatch 05/26/16 05/26/16 05/26/16 11:57 12:38 13:52 WBC 19.7 H RBC 2.56 L Hgb 7.4 L Hct 23.2 L D RDW 15.8 H Plt Count Seg Neuts % (Manual) Lymphocytes % (Manual) Nucleated RBC % Seg Neutrophils # Man Lymphocytes # (Manual) Monocytes # (Manual) D-Dimer Heparin Anti-Xa Level POC ABG pH 7.298 L POC ABG pCO2 27.8 L POC ABG pO2 132 H Sodium Potassium Chloride Carbon Dioxide BUN Creatinine Glucose POC Glucose 338 H Hemoglobin A1c Lactic Acid Calcium Phosphorus AST ALT Total Creatine Kinase C-Reactive Protein Total Protein Albumin Urine Creatinine Crossmatch 05/26/16 05/26/16 05/26/16 15:47 15:47 17:06 WBC RBC Hgb Hct RDW Plt Count Seg Neuts % (Manual) Lymphocytes % (Manual) Nucleated RBC % Seg Neutrophils # Man Lymphocytes # (Manual) Monocytes # (Manual) D-Dimer Heparin Anti-Xa Level 1.35 H POC ABG pH 7.108 L POC ABG pCO2 POC ABG pO2 287 H Sodium Potassium Chloride Carbon Dioxide BUN Creatinine Glucose POC Glucose Hemoglobin A1c Lactic Acid 9.0 H* Calcium Phosphorus AST ALT Total Creatine Kinase C-Reactive Protein Total Protein Albumin Urine Creatinine Crossmatch 05/26/16 05/26/16 05/26/16 17:12 17:15 17:53 WBC RBC Hgb Hct RDW Plt Count Seg Neuts % (Manual) Lymphocytes % (Manual) Nucleated RBC % Seg Neutrophils # Man Lymphocytes # (Manual) Monocytes # (Manual) D-Dimer Heparin Anti-Xa Level POC ABG pH 7.061 L POC ABG pCO2 47.3 H POC ABG pO2 35 L Sodium Potassium Chloride Carbon Dioxide BUN Creatinine Glucose POC Glucose 275 H Hemoglobin A1c Lactic Acid Calcium Phosphorus AST ALT Total Creatine Kinase C-Reactive Protein Total Protein Albumin Urine Creatinine Crossmatch See Detail 05/26/16 05/26/16 05/26/16 17:53 22:08 23:00 WBC RBC Hgb 6.7 L Hct 22.3 L RDW Plt Count Seg Neuts % (Manual) Lymphocytes % (Manual) Nucleated RBC % Seg Neutrophils # Man Lymphocytes # (Manual) Monocytes # (Manual) D-Dimer Heparin Anti-Xa Level POC ABG pH 7.195 L POC ABG pCO2 POC ABG pO2 129 H Sodium Potassium Chloride Carbon Dioxide BUN Creatinine Glucose POC Glucose 250 H Hemoglobin A1c Lactic Acid Calcium Phosphorus AST ALT Total Creatine Kinase C-Reactive Protein Total Protein Albumin Urine Creatinine Crossmatch 05/27/16 05/27/16 05/27/16 00:26 01:00 05:13 WBC RBC Hgb 8.0 L Hct 24.6 L RDW Plt Count Seg Neuts % (Manual) Lymphocytes % (Manual) Nucleated RBC % Seg Neutrophils # Man Lymphocytes # (Manual) Monocytes # (Manual) D-Dimer Heparin Anti-Xa Level POC ABG pH 7.273 L POC ABG pCO2 POC ABG pO2 62 L Sodium Potassium Chloride Carbon Dioxide BUN Creatinine Glucose POC Glucose Hemoglobin A1c Lactic Acid Calcium Phosphorus AST ALT Total Creatine Kinase C-Reactive Protein Total Protein Albumin Urine Creatinine Crossmatch 05/27/16 05/27/16 05/27/16 05:50 05:50 07:54 WBC RBC Hgb 7.6 L Hct 23.1 L RDW Plt Count Seg Neuts % (Manual) Lymphocytes % (Manual) Nucleated RBC % Seg Neutrophils # Man Lymphocytes # (Manual) Monocytes # (Manual) D-Dimer Heparin Anti-Xa Level POC ABG pH POC ABG pCO2 POC ABG pO2 Sodium Potassium Chloride Carbon Dioxide BUN Creatinine Glucose POC Glucose 385 H Hemoglobin A1c Lactic Acid 4.0 H* Calcium Phosphorus AST ALT Total Creatine Kinase C-Reactive Protein Total Protein Albumin Urine Creatinine Crossmatch 05/27/16 05/27/16 05/27/16 08:30 11:57 16:04 WBC RBC Hgb Hct RDW Plt Count Seg Neuts % (Manual) Lymphocytes % (Manual) Nucleated RBC % Seg Neutrophils # Man Lymphocytes # (Manual) Monocytes # (Manual) D-Dimer Heparin Anti-Xa Level POC ABG pH POC ABG pCO2 POC ABG pO2 Sodium Potassium Chloride 94.8 L Carbon Dioxide BUN 61 H Creatinine 2.9 H D Glucose 411 H POC Glucose 394 H 292 H Hemoglobin A1c Lactic Acid Calcium 6.3 L D Phosphorus AST 7200 H ALT 4300 H Total Creatine Kinase C-Reactive Protein Total Protein 4.5 L D Albumin 3.0 L Urine Creatinine Crossmatch 05/27/16 05/27/16 05/27/16 17:15 18:00 18:25 WBC RBC Hgb 7.5 L Hct 22.5 L RDW Plt Count Seg Neuts % (Manual) Lymphocytes % (Manual) Nucleated RBC % Seg Neutrophils # Man Lymphocytes # (Manual) Monocytes # (Manual) D-Dimer Heparin Anti-Xa Level POC ABG pH POC ABG pCO2 POC ABG pO2 Sodium Potassium Chloride Carbon Dioxide BUN Creatinine Glucose POC Glucose Hemoglobin A1c Lactic Acid Calcium Phosphorus AST 8515 H ALT 4517 H Total Creatine Kinase C-Reactive Protein Total Protein 4.6 L Albumin 2.8 L Urine Creatinine 69.9 H Crossmatch 05/27/16 05/28/16 05/28/16 21:44 04:50 04:50 WBC 19.9 H RBC 2.66 L Hgb 7.6 L Hct 23.3 L RDW 15.4 H Plt Count 101 L Seg Neuts % (Manual) Lymphocytes % (Manual) Nucleated RBC % Seg Neutrophils # Man Lymphocytes # (Manual) Monocytes # (Manual) D-Dimer Heparin Anti-Xa Level POC ABG pH POC ABG pCO2 POC ABG pO2 Sodium Potassium Chloride Carbon Dioxide BUN 79 H Creatinine 3.9 H Glucose 166 H POC Glucose 176 H Hemoglobin A1c Lactic Acid Calcium 6.3 L Phosphorus AST 5609 H ALT 4060 H Total Creatine Kinase 929 H C-Reactive Protein Total Protein 4.8 L Albumin 2.9 L Urine Creatinine Crossmatch 05/28/16 05/28/16 05/28/16 05:17 07:38 12:41 WBC RBC Hgb Hct RDW Plt Count Seg Neuts % (Manual) Lymphocytes % (Manual) Nucleated RBC % Seg Neutrophils # Man Lymphocytes # (Manual) Monocytes # (Manual) D-Dimer Heparin Anti-Xa Level POC ABG pH POC ABG pCO2 POC ABG pO2 115 H Sodium Potassium Chloride Carbon Dioxide BUN Creatinine Glucose POC Glucose 168 H 173 H Hemoglobin A1c Lactic Acid Calcium Phosphorus AST ALT Total Creatine Kinase C-Reactive Protein Total Protein Albumin Urine Creatinine Crossmatch 05/28/16 05/28/16 05/29/16 16:12 21:45 04:15 WBC RBC Hgb Hct RDW Plt Count 71 L Seg Neuts % (Manual) Lymphocytes % (Manual) Nucleated RBC % Seg Neutrophils # Man Lymphocytes # (Manual) Monocytes # (Manual) D-Dimer Heparin Anti-Xa Level POC ABG pH POC ABG pCO2 POC ABG pO2 Sodium Potassium Chloride Carbon Dioxide BUN Creatinine Glucose POC Glucose 210 H 221 H Hemoglobin A1c Lactic Acid Calcium Phosphorus AST ALT Total Creatine Kinase C-Reactive Protein Total Protein Albumin Urine Creatinine Crossmatch 05/29/16 05/29/16 05/29/16 04:15 06:14 07:28 WBC RBC Hgb Hct RDW Plt Count Seg Neuts % (Manual) Lymphocytes % (Manual) Nucleated RBC % Seg Neutrophils # Man Lymphocytes # (Manual) Monocytes # (Manual) D-Dimer Heparin Anti-Xa Level POC ABG pH 7.285 L POC ABG pCO2 POC ABG pO2 63 L Sodium Potassium Chloride Carbon Dioxide 21 L BUN 98 H Creatinine 4.7 H Glucose 220 H POC Glucose 232 H Hemoglobin A1c Lactic Acid Calcium 5.8 L* Phosphorus AST 1464 H ALT 2628 H Total Creatine Kinase 792 H C-Reactive Protein Total Protein 4.5 L Albumin 2.8 L Urine Creatinine Crossmatch 05/29/16 05/29/16 05/29/16 11:33 11:58 15:22 WBC RBC Hgb Hct RDW Plt Count Seg Neuts % (Manual) Lymphocytes % (Manual) Nucleated RBC % Seg Neutrophils # Man Lymphocytes # (Manual) Monocytes # (Manual) D-Dimer Heparin Anti-Xa Level POC ABG pH 7.291 L POC ABG pCO2 45.3 H POC ABG pO2 Sodium Potassium Chloride Carbon Dioxide BUN Creatinine Glucose POC Glucose 196 H 184 H Hemoglobin A1c Lactic Acid Calcium Phosphorus AST ALT Total Creatine Kinase C-Reactive Protein Total Protein Albumin Urine Creatinine Crossmatch 05/29/16 05/30/16 05/30/16 22:16 04:53 05:30 WBC RBC Hgb Hct RDW Plt Count Seg Neuts % (Manual) Lymphocytes % (Manual) Nucleated RBC % Seg Neutrophils # Man Lymphocytes # (Manual) Monocytes # (Manual) D-Dimer Heparin Anti-Xa Level POC ABG pH 7.303 L POC ABG pCO2 POC ABG pO2 Sodium Potassium 5.5 H Chloride Carbon Dioxide BUN 113 H Creatinine 5.3 H Glucose 240 H POC Glucose 274 H Hemoglobin A1c Lactic Acid Calcium 5.5 L* Phosphorus 6.6 H AST 380 H ALT 1647 H Total Creatine Kinase 2131 H C-Reactive Protein Total Protein 4.4 L Albumin 2.8 L Urine Creatinine Crossmatch 05/30/16 05/30/16 05/30/16 05:30 06:01 08:25 WBC 15.4 H RBC 2.45 L Hgb 7.0 L Hct 22.0 L RDW 16.1 H Plt Count 51 L Seg Neuts % (Manual) Lymphocytes % (Manual) 9.0 L Nucleated RBC % 7.0 H Seg Neutrophils # Man 8.5 H Lymphocytes # (Manual) Monocytes # (Manual) D-Dimer Heparin Anti-Xa Level POC ABG pH POC ABG pCO2 POC ABG pO2 Sodium Potassium Chloride Carbon Dioxide BUN Creatinine Glucose POC Glucose 268 H Hemoglobin A1c Lactic Acid Calcium Phosphorus AST ALT Total Creatine Kinase C-Reactive Protein Total Protein Albumin Urine Creatinine Crossmatch See Detail 05/30/16 05/30/16 05/30/16 12:04 18:54 22:23 WBC RBC Hgb Hct RDW Plt Count Seg Neuts % (Manual) Lymphocytes % (Manual) Nucleated RBC % Seg Neutrophils # Man Lymphocytes # (Manual) Monocytes # (Manual) D-Dimer Heparin Anti-Xa Level POC ABG pH POC ABG pCO2 POC ABG pO2 Sodium Potassium Chloride Carbon Dioxide BUN Creatinine Glucose POC Glucose 251 H 210 H 199 H Hemoglobin A1c Lactic Acid Calcium Phosphorus AST ALT Total Creatine Kinase C-Reactive Protein Total Protein Albumin Urine Creatinine Crossmatch 05/31/16 05/31/16 05/31/16 05:50 05:50 06:19 WBC 22.0 H RBC 3.61 L Hgb 10.3 L D Hct 31.9 L D RDW 15.6 H Plt Count 42 L Seg Neuts % (Manual) Lymphocytes % (Manual) Nucleated RBC % Seg Neutrophils # Man Lymphocytes # (Manual) Monocytes # (Manual) D-Dimer Heparin Anti-Xa Level POC ABG pH 7.320 L POC ABG pCO2 45.2 H POC ABG pO2 Sodium 134 L Potassium 5.1 H Chloride 97.0 L Carbon Dioxide BUN 77 H Creatinine 3.6 H Glucose 225 H POC Glucose Hemoglobin A1c Lactic Acid Calcium 6.0 L Phosphorus AST 133 H ALT 1165 H Total Creatine Kinase 1486 H C-Reactive Protein Total Protein 4.5 L Albumin 2.7 L Urine Creatinine Crossmatch 05/31/16 05/31/16 05/31/16 07:42 12:13 12:34 WBC RBC Hgb Hct RDW Plt Count Seg Neuts % (Manual) Lymphocytes % (Manual) Nucleated RBC % Seg Neutrophils # Man Lymphocytes # (Manual) Monocytes # (Manual) D-Dimer Heparin Anti-Xa Level POC ABG pH 7.298 L POC ABG pCO2 POC ABG pO2 Sodium Potassium Chloride Carbon Dioxide BUN Creatinine Glucose POC Glucose 250 H 209 H Hemoglobin A1c Lactic Acid Calcium Phosphorus AST ALT Total Creatine Kinase C-Reactive Protein Total Protein Albumin Urine Creatinine Crossmatch 05/31/16 05/31/16 05/31/16 13:45 17:43 21:38 WBC RBC Hgb Hct RDW Plt Count Seg Neuts % (Manual) Lymphocytes % (Manual) Nucleated RBC % Seg Neutrophils # Man Lymphocytes # (Manual) Monocytes # (Manual) D-Dimer Heparin Anti-Xa Level POC ABG pH POC ABG pCO2 POC ABG pO2 Sodium Potassium Chloride Carbon Dioxide BUN Creatinine Glucose POC Glucose 242 H 248 H Hemoglobin A1c Lactic Acid Calcium Phosphorus AST ALT Total Creatine Kinase C-Reactive Protein 4.10 H Total Protein Albumin Urine Creatinine Crossmatch 06/01/16 06/01/16 06/01/16 03:35 03:35 04:16 WBC 28.8 H RBC 3.51 L Hgb 10.0 L Hct 31.2 L RDW 15.3 H Plt Count 42 L Seg Neuts % (Manual) 74.0 H Lymphocytes % (Manual) 3.0 L Nucleated RBC % 2.0 H Seg Neutrophils # Man 21.3 H Lymphocytes # (Manual) 0.9 L Monocytes # (Manual) 1.7 H D-Dimer Heparin Anti-Xa Level POC ABG pH 7.332 L POC ABG pCO2 POC ABG pO2 56 L Sodium Potassium Chloride Carbon Dioxide 21 L BUN 97 H Creatinine 3.9 H Glucose 206 H POC Glucose Hemoglobin A1c Lactic Acid Calcium 5.4 L* Phosphorus AST 70 H ALT 732 H Total Creatine Kinase C-Reactive Protein Total Protein 4.3 L Albumin 2.4 L Urine Creatinine Crossmatch 06/01/16 07:31 WBC RBC Hgb Hct RDW Plt Count Seg Neuts % (Manual) Lymphocytes % (Manual) Nucleated RBC % Seg Neutrophils # Man Lymphocytes # (Manual) Monocytes # (Manual) D-Dimer Heparin Anti-Xa Level POC ABG pH POC ABG pCO2 POC ABG pO2 Sodium Potassium Chloride Carbon Dioxide BUN Creatinine Glucose POC Glucose 232 H Hemoglobin A1c Lactic Acid Calcium Phosphorus AST ALT Total Creatine Kinase C-Reactive Protein Total Protein Albumin Urine Creatinine Crossmatch
[2016-06-01] MEDS ORDERED: LASIX IV ONE (13:00)
[2016-06-01] MEDS ORDERED: VANCOMYCIN VIAL 1,500 MG in NACL 0.9% 500 ML 500 ML IV ONE (13:00)
--- NOTE | 2016-06-01 13:11 | Consultation ---
Addendum entered and electronically signed by RONY STEWARD MD 06/01/16 19:18 : Sinus tachycardia is a secondary response to sepsis, respiratory failure and fever. No further intervention is indicated for sinus tachycardia in this setting, it should resolve with resolution of the primary exacerbating factors. Original Note: History of Present Illness Consult date: 06/01/16 Consult reason: tachycardia History of present illness: Patient is an 80yr old man who presented to this hospital 05/22 with shortness of breath, admitted with COPD exacerbation. Patient is currently in CCU, intubated on mechanical ventilation. Hospital course complicated by severe anemia requiring blood transfusion, hypotension currently on pressor support, acute renal failure with hyperkalemia requiring hemodialysis. Cardiac consultation requested for sinus tachycardia. Patient febrile with a temperature of 102.1. His presenting ECG shows sinus rhythm with first degree AV block. An echocardiogram this admission reports a technical difficulty study , normal left ventricular systolic function. Past History Past Medical History: COPD, diabetes, hypertension, hyperlipidemia Medications and Allergies Allergies Allergy/AdvReac Type Severity Reaction Status Date / Time No Known Allergies Allergy Unverified 05/22/16 14:00 Home Medications Medication Instructions Recorded Confirmed Last Taken Type Albuterol Sulfate [Ventolin HFA] 2 puff IH Q4H PRN 05/22/16 05/22/16 05/21/16 History Alendronate Sodium [Fosamax] 70 mg PO QWEEK 05/22/16 05/22/16 05/21/16 History Aspirin [Aspirin TAB] 325 mg PO QDAY 05/22/16 05/22/16 05/21/16 History Diltiazem HCl [Diltiazem ER] 120 mg PO BID 05/22/16 05/22/16 05/21/16 History Ergocalciferol [Vitamin D2] 1 cap PO QWEEK 05/22/16 05/22/16 05/21/16 History Fluticasone [Flonase] 2 spray NS QDAY 05/22/16 05/22/16 05/21/16 History Fluticasone/Salmeterol [Advair 1 puff IH BID 05/22/16 05/22/16 05/21/16 History Diskus 500-50 mcg] Ipratropium/Albuterol Sulfate 1 ampul IH Q6HR PRN 05/22/16 05/22/1605/21/16 History [Duoneb 0.5 mg-3 mg/3 ml Soln] Ketoconazole 2% [Nizoral] 1 applicatio TP QDAY 05/22/16 05/22/16 05/21/16 History Loratadine [Claritin] 10 mg PO DAILY 05/22/16 05/22/16 05/21/16 History Losartan [Cozaar] 50 mg PO QDAY 05/22/16 05/22/16 05/21/16 History Meclizine HCl [Meclizine CHEW] 25 mg PO QDAY PRN 05/22/16 05/22/16 05/21/16 History Montelukast [Singulair] 10 mg PO QPM 05/22/16 05/22/16 05/21/16 History Pravastatin Sodium [Pravastatin] 40 mg PO QHS 05/22/16 05/22/16 05/21/16 History Triamter/Hctz 37.5-25 mg 1 tab PO QDAY 05/22/16 05/22/16 05/21/16 History [Maxzide-25] metFORMIN [Glucophage] 500 mg PO BID 05/22/16 05/22/16 05/21/16 History Active Meds: Active Medications Acetaminophen (Tylenol) 650 mg PO Q4H PRN PRN Reason: Pain MILD(1-3)/Fever >100.5/PÉREZ Albumin Human (Alburx 25% (Albumin)) 25 gm IV RED PRN PRN Reason: Hypotension Albuterol (Proventil) 2.5 mg IH Q4HRT PRN PRN Reason: Shortness Of Breath Albuterol/Ipratropium (Duoneb 0.5 Mg-3 Mg/3 Ml Soln) 1 ampul IH Q6HRT [facility] Last Admin: 06/01/16 09:01 Dose: 1 ampul Lipase/Protease/Amylase (Denise Hernandez 10,500 Unit) 1 each FEEDTUBE PRN PRN PRN Reason: For Clogged Feeding Tube Bisacodyl (Dulcolax) 10 mg AL QDAY PRN PRN Reason: Constipation unrelieved by MOM Budesonide (Pulmicort) 0.5 mg IH Q12HRT [facility] Last Admin: 06/01/16 09:00 Dose: 0.5 mg Dextrose (D50w (25gm)) 50 ml IV PRN PRN PRN Reason: Hypoglycemia Epoetin Ld (Epogen) 20,000 unit IV RED PRN PRN Reason: hemoglobin Last Admin: 05/30/16 17:11 Dose: 20,000 unit Ergocalciferol (Vitamin D2) 50,000 unit PO Sa ARLYN Last Admin: 05/30/16 09:53 Dose: 50,000 unit Heparin Sodium (Porcine) (Heparin) 5,000 unit IV RED PRN PRN Reason: hemodialysis Last Admin: 05/30/16 18:50 Dose: 5,000 unit Hydrophilic Ointment (Vaseline Lip Therapy) 1 applic TP Q2HR PRN PRN Reason: Dry Lips Fentanyl Citrate (Fentanyl Drip Premix) 100 mls @ 4.1 mls/hr IV TITR ARLYN; 1 MCG /KG/HR PRN Reason: Protocol Last Admin: 06/01/16 10:01 Dose: 4.1 mls/hr Midazolam HCl (Versed/Ns 100mg/100ml) 100 mls @ 1 mls/hr IV TITR ARLYN; 1 MG/HR PRN Reason: Protocol Sodium Chloride (Nacl 0.9% 1000 Ml) 1,000 mls @ 75 mls/hr IV DIRECT ARLYN Last Admin: 06/01/16 02:00 Dose: 75 mls/hr Norepinephrine 8 mg/ Sodium (Chloride) 250 mls @ 3.75 mls/hr IV TITR ARLYN; 2 MCG /MIN PRN Reason: Protocol Last Admin: 05/31/16 13:33 Dose: 11.25 mls/hr Sodium Chloride (Nacl 0.9% 1000 Ml) 100 mls @ 999 mls/hr IV RED PRN PRN Reason: Hypotension Piperacillin Sod/Tazobactam Sod (Zosyn/Ns 2.25 Gm/50ml) 50 mls @ 100 mls/hr IV Q8HR ARLYN Vancomycin HCl 1,500 mg/ (Sodium Chloride) 500 mls @ 333.333 mls/hr IV ONCE ONE Stop: 06/01/16 14:29 Insulin Aspart (Novolog) 0 units SUB-Q ACHS ARL[facility] PRN Reason: Protocol Last Admin: 06/01/16 08:39 Dose: 6 units Insulin Detemir (Levemir) 25 units SUB-Q DAILY A[facility] Magnesium Hydroxide (Milk Of Magnesia) 30 ml PO Q4H PRN PRN Reason: Constipation Methylprednisolone Sodium Succinate (Solu-Medrol) 60 mg IV Q8HR [facility] Last Admin: 06/01/16 05:37 Dose: 60 mg Metoclopramide HCl (Reglan) 10 mg IV Q12H [facility] Last Admin: 06/01/16 03:46 Dose: 10 mg Montelukast Sodium (Singulair) 10 mg PO QPM [facility] Last Admin: 05/31/16 17:56 Dose: 10 mg Multi-Ingred Cream/Lotion/Oil/Oint (Artificial Tears Ophth Oint) 1 applic OU Q4HR PRN PRN Reason: Dry Eye(s) Last Admin: 05/30/16 01:17 Dose: 1 applic Ondansetron HCl (Zofran) 4 mg IV Q8H PRN PRN Reason: N/V unrelieved by Reglan Pantoprazole (Protonix) 40 mg PO BID [facility] Last Admin: 06/01/16 10:05 Dose: 40 mg Quetiapine Fumarate (Seroquel) 100 mg PO BID [facility] Stop: 06/02/16 13:59 Last Admin: 06/01/16 10:05 Dose: 100 mg Simple Syrup (Simple Syrup) 15 ml FEEDTUBE PRN PRN PRN Reason: Hypoglycemia Simple Syrup (Simple Syrup) 30 ml FEEDTUBE PRN PRN PRN Reason: Hypoglycemia Simvastatin (Zocor) 20 mg PO QHS [facility] Last Admin: 05/31/16 21:24 Dose: 20 mg Sodium Bicarbonate (Sodium Bicarbonate) 325 mg FEEDTUBE PRN PRN PRN Reason: For Clogged Feeding Tube Sodium Chloride (Nacl 0.9% 500 Ml) 1 ml IV DIRECT [facility] Vancomycin HCl (Vancomycin Pharmacy To Dose) 1 each IV PKCONSULT [facility] PRN Reason: Protocol Physical Examination Vital Signs Temp Pulse BP Pulse Ox 97.3 F L 138 H 170/110 90 05/22/16 13:57 05/22/16 13:57 05/22/16 13:57 05/22/16 13:57 General appearance: other (intubated on the vent) Cardiac: Positive: Tachycardia Results 06/01/16 03:35 06/01/16 03:35 Cardiac Enzymes 06/01/16 Range/Units 03:35 AST 70 H (5-40) units/L CBC 06/01/16 Range/Units 03:35 WBC 28.8 H (4.5-11.0) K/mm3 RBC 3.51 L (3.65-5.03) M/mm3 Hgb 10.0 L (11.8-15.2) gm/dl Hct 31.2 L (35.5-45.6) % Plt Count 42 L (140-440) K/mm3 Comprehensive Metabolic Panel 06/01/16 Range/Units 03:35 Sodium 141 D (137-145) mmol/L Potassium 5.0 (3.6-5.0) mmol/L Chloride 104.2 (98-107) mmol/L Carbon Dioxide 21 L (22-30) mmol/L BUN 97 H (9-20) mg/dL Creatinine 3.9 H (0.8-1.5) mg/dL Glucose 206 H (75-100) mg/dL Calcium 5.4 L* (8.4-10.2) mg/dL AST 70 H (5-40) units/L ALT 732 H (7-56) units/L Alkaline Phosphatase 103 (35-129) units/L Total Protein 4.3 L (6.3-8.2) g/dL Albumin 2.4 L (3.9-5) g/dL Assessment and Plan Acute hypoxic respiratory failure intubated on the vent COPD exacerbation Sepsis Acute blood loss anemia s/p transfusion of PRBCs Acute kidney injury initiated on HD this admission Diabetes mellitus Hypertension Metabolic acidosis Sinus tachycardia-a physiological response to underlying condition. No treatment indicated. Normal systolic function on echocardiogram. Recommend: No treatment indicated for sinus tachycardia as a response to underlying condition. Conservative cardiac management.
--- NOTE | 2016-06-01 13:49 | XRay Report ---
AP ABDOMEN: HISTORY: Abdominal distention. FINDINGS: Compared to 05/28/16. A feeding tube is coiled in the proximal stomach which is unchanged. There are multiple dilated small bowel loops throughout the visualized abdomen measuring up to 5 cm in diameter. There appears to be normal stool and gas in the colon. No convincing free air on this limited exam. IMPRESSION: Findings consistent with a partial small bowel obstruction. No overwhelming change since the exam 4 days ago. Consider further evaluation with CT with IV and oral contrast, if possible.
[2016-06-01] MEDS: ZOSYN/NS 2.25 GM/50ML 50 ML IV SCH ×2 (13:54→23:50)
[2016-06-01] MEDS ORDERED: ZOSYN/NS 4.5GM/100ML 100 ML IV SCH (14:00)
[2016-06-01] MEDS: LEVEMIR SUB-Q SCH (15:46)
[2016-06-01] MEDS: LEVOPHED 8 MG in NACL 0.9% 250ML 242 ML IV SCH (17:26)
[2016-06-01] MEDS: SINGULAIR PO SCH (17:31)
[2016-06-01 18:11] LABS: Bacteria,Urine 3+ /HPF (Negative); Bilirubin,Urine NEG (Negative); Blood,Urine LG (Negative); Granular Casts,Urine 30 /LPF; Ketones,Urine NEG (Negative); Leukocyte Esterase,Urine MOD (Negative); Mucus,Urine FEW /HPF; Nitrite,Urine NEG (Negative); Urobilinogen,Urine < 2.0 mg/dL (<2.0)
[2016-06-02] MEDS: NOVOLOG SUB-Q SCH ×4 (00:57→18:23)
[2016-06-02] MEDS: DUONEB 0.5 MG-3 MG/3 ML SOLN IH SCH ×4 (01:53→19:54)
[2016-06-02] MEDS: REGLAN IV SCH (02:00)
[2016-06-02 03:48] LABS: ISTAT Base Excess -3; ISTAT HCO3 22.3; ISTAT PCO2 41.2 (35-45); ISTAT PH 7.341 (7.35-7.45); ISTAT PO2 98 (80-105); ISTAT SO2 97; ISTAT TCO2 24
[2016-06-02 04:40] LABS: Hematocrit 28.5 % (35.5-45.6); Hemoglobin 9.2 gm/dl (11.8-15.2); Mean Corpuscular HGB Conc 32 % (32-34); Mean Corpuscular Hemoglobin 29 pg (28-32); Mean Corpuscular Volume 90 fl (84-94); Red Blood Count 3.18 M/mm3 (3.65-5.03); Red Cell Distribution Width 15.2 % (13.2-15.2)
[2016-06-02 04:57] LABS: Albumin 2.3 g/dL (3.9-5); Albumin/Globulin Ratio 1.3 %; Bilirubin,Total 0.3 mg/dL (0.1-1.2); Chloride 102.3 mmol/L (98-107); Potassium 5.9 mmol/L (3.6-5.0); Total Protein 4.1 g/dL (6.3-8.2)
[2016-06-02 05:01] LABS: Calcium 5.3 mg/dL (8.4-10.2); Platelet Count 49 K/mm3 (140-440); White Blood Count 37.1 K/mm3 (4.5-11.0)
[2016-06-02 05:10] LABS: BUN/Creatinine Ratio 24.8
[2016-06-02] MEDS: ZOSYN/NS 2.25 GM/50ML 50 ML IV SCH ×3 (05:31→22:39)
[2016-06-02] MEDS: ZOCOR PO SCH ×2 (05:32→22:39)
[2016-06-02] MEDS: PROTONIX PO SCH (05:33)
[2016-06-02] MEDS: NACL 0.9% 1000 ML 1,000 ML IV SCH ×2 (05:51→12:00)
[2016-06-02] MEDS: LEVOPHED 8 MG in NACL 0.9% 250ML 242 ML IV SCH ×2 (05:52→18:18)
--- NOTE | 2016-06-02 07:53 | XRay Report ---
AP chest History: Followup respiratory failure Findings: Lines and support devices are unchanged since yesterday's exam. Mild bibasilar atelectasis is unchanged. The upper lung zones remain clear. Normal heart size and borderline pulmonary vascularity are stable. Impression: No change.
[2016-06-02] MEDS: PULMICORT IH SCH ×2 (08:08→19:54)
--- NOTE | 2016-06-02 08:55 | XRay Report ---
AP ABDOMEN: HISTORY: Nasogastric tube placement. FINDINGS: A nasogastric tube has been inserted which terminates in the antrum of the stomach. The feeding tube has been removed. Multiple dilated loops of small bowel are again identified suggesting a partial small bowel obstruction. There appears to be normal gas and stool in the colon. IMPRESSION: The nasogastric tube terminates in the distal stomach. Persistent partial small bowel obstruction pattern.
--- NOTE | 2016-06-02 09:09 | Progress Note ---
Assessment and Plan - Patient Problems (1) RUBIA (acute kidney injury) Current Visit: Yes Status: Acute Plan to address problem: Acute Kidney Injury superimposed on CKD stage 3 in the setting of hypotension and anemia. Patient remain on levophed. Patient was started on hemodialysis due to worsening renal function, oliguria and Hyperkalemia. Unable to do hemodialysis yesterday due to tachycardia and unstable BP. Plan to do hemodialysis today. 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 Renal prognosis guarded. (2) Shock Current Visit: Yes Status: Acute Plan to address problem: On Levophed. (3) Lactic acidosis Current Visit: Yes Status: Acute (4) Acute on chronic respiratory failure with hypoxemia Current Visit: Yes Status: Acute Plan to address problem: On vent. (5) Anemia Current Visit: Yes Status: Acute Plan to address problem: S/p PRBC. (6) Shock liver Current Visit: Yes Status: Acute Plan to address problem: LFTs improving. Subjective Date of service: 06/02/16 Principal diagnosis: Acute on Chronic Hypoxemic Respiratory Failure Interval history: Patient remain on the vent. Objective - Vital Signs Vital signs: Vital Signs - 12hr 06/01/16 06/01/16 06/01/16 21:15 21:30 21:45 Temperature Pulse Rate 110 H 109 H 104 H Pulse Rate [ Anterior Bilateral Throughout] Pulse Rate [ From Monitor] Respiratory 16 25 H 25 H Rate Respiratory Rate [Anterior Bilateral Throughout] Blood Pressure 109/54 109/54 119/49 O2 Sat by Pulse 98 99 99 Oximetry 06/01/16 06/01/16 06/01/16 22:00 22:15 22:30 Temperature Pulse Rate 103 H 101 H 101 H Pulse Rate [ Anterior Bilateral Throughout] Pulse Rate [ From Monitor] Respiratory 25 H 25 H 25 H Rate Respiratory Rate [Anterior Bilateral Throughout] Blood Pressure 112/51 114/50 109/50 O2 Sat by Pulse 99 99 99 Oximetry 06/01/16 06/01/16 06/01/16 22:45 23:00 23:09 Temperature Pulse Rate 101 H 101 H 100 H Pulse Rate [ Anterior Bilateral Throughout] Pulse Rate [ From Monitor] Respiratory 25 H 25 H Rate Respiratory Rate [Anterior Bilateral Throughout] Blood Pressure 110/52 118/51 118/51 O2 Sat by Pulse 99 99 99 Oximetry 06/01/16 06/01/16 06/01/16 23:15 23:30 23:45 Temperature Pulse Rate 100 H 100 H 99 H Pulse Rate [ Anterior Bilateral Throughout] Pulse Rate [ From Monitor] Respiratory 25 H 25 H 25 H Rate Respiratory Rate [Anterior Bilateral Throughout] Blood Pressure 115/52 121/54 111/52 O2 Sat by Pulse 99 99 99 Oximetry 06/02/16 06/02/16 06/02/16 00:00 00:15 00:16 Temperature Pulse Rate 100 H 100 H 100 H Pulse Rate [ Anterior Bilateral Throughout] Pulse Rate [ 97 H From Monitor] Respiratory 25 H 25 H 25 H Rate Respiratory Rate [Anterior Bilateral Throughout] Blood Pressure 122/53 125/52 125/52 O2 Sat by Pulse 99 99 99 Oximetry 06/02/16 06/02/16 06/02/16 00:30 00:45 01:00 Temperature Pulse Rate 98 H 100 H 98 H Pulse Rate [ Anterior Bilateral Throughout] Pulse Rate [ From Monitor] Respiratory 25 H 25 H 25 H Rate Respiratory Rate [Anterior Bilateral Throughout] Blood Pressure 122/53 123/54 128/52 O2 Sat by Pulse 99 99 99 Oximetry 06/02/16 06/02/16 06/02/16 01:14 01:15 01:30 Temperature Pulse Rate 97 H 97 H 97 H Pulse Rate [ Anterior Bilateral Throughout] Pulse Rate [ From Monitor] Respiratory 25 H 25 H 25 H Rate Respiratory Rate [Anterior Bilateral Throughout] Blood Pressure 128/52 122/54 126/56 O2 Sat by Pulse 99 99 99 Oximetry 06/02/16 06/02/16 06/02/16 01:45 02:00 02:10 Temperature Pulse Rate 97 H 109 H Pulse Rate [ 104 H Anterior Bilateral Throughout] Pulse Rate [ From Monitor] Respiratory 25 H 25 H Rate Respiratory 20 Rate [Anterior Bilateral Throughout] Blood Pressure 126/54 144/63 O2 Sat by Pulse 99 99 Oximetry 06/02/16 06/02/16 06/02/16 02:15 02:30 02:45 Temperature Pulse Rate 111 H 109 H 111 H Pulse Rate [ Anterior Bilateral Throughout] Pulse Rate [ From Monitor] Respiratory 25 H 25 H 25 H Rate Respiratory Rate [Anterior Bilateral Throughout] Blood Pressure 138/56 134/58 128/55 O2 Sat by Pulse 99 99 99 Oximetry 06/02/16 06/02/16 06/02/16 02:59 03:00 03:15 Temperature Pulse Rate 104 H 105 H 106 H Pulse Rate [ Anterior Bilateral Throughout] Pulse Rate [ From Monitor] Respiratory 25 H 25 H Rate Respiratory Rate [Anterior Bilateral Throughout] Blood Pressure 128/55 121/55 125/55 O2 Sat by Pulse 99 99 99 Oximetry 06/02/16 06/02/16 06/02/16 03:30 03:45 04:00 Temperature 98.7 F Pulse Rate 101 H 96 H 94 H Pulse Rate [ Anterior Bilateral Throughout] Pulse Rate [ 88 From Monitor] Respiratory 25 H 25 H 25 H Rate Respiratory Rate [Anterior Bilateral Throughout] Blood Pressure 125/50 110/49 110/49 O2 Sat by Pulse 99 99 99 Oximetry 06/02/16 06/02/16 06/02/16 04:15 04:30 04:46 Temperature Pulse Rate 92 H 103 H 109 H Pulse Rate [ Anterior Bilateral Throughout] Pulse Rate [ From Monitor] Respiratory 24 25 H 10 L Rate Respiratory Rate [Anterior Bilateral Throughout] Blood Pressure 115/51 122/59 122/59 O2 Sat by Pulse 99 99 97 Oximetry 06/02/16 06/02/16 06/02/16 05:00 05:15 05:30 Temperature Pulse Rate 96 H 91 H 90 Pulse Rate [ Anterior Bilateral Throughout] Pulse Rate [ From Monitor] Respiratory 25 H 25 H 25 H Rate Respiratory Rate [Anterior Bilateral Throughout] Blood Pressure 122/59 109/49 108/48 O2 Sat by Pulse 99 99 99 Oximetry 06/02/16 06/02/16 06/02/16 05:32 05:45 06:00 Temperature Pulse Rate 90 89 89 Pulse Rate [ Anterior Bilateral Throughout] Pulse Rate [ From Monitor] Respiratory 25 H 25 H 25 H Rate Respiratory Rate [Anterior Bilateral Throughout] Blood Pressure 108/48 116/50 119/51 O2 Sat by Pulse 99 100 99 Oximetry 06/02/16 06/02/16 06/02/16 06:15 06:30 06:36 Temperature Pulse Rate 87 86 85 Pulse Rate [ Anterior Bilateral Throughout] Pulse Rate [ From Monitor] Respiratory 25 H 25 H 25 H Rate Respiratory Rate [Anterior Bilateral Throughout] Blood Pressure 117/50 119/51 119/51 O2 Sat by Pulse 100 100 100 Oximetry 06/02/16 06/02/16 06/02/16 06:45 07:00 07:15 Temperature Pulse Rate 84 84 83 Pulse Rate [ Anterior Bilateral Throughout] Pulse Rate [ From Monitor] Respiratory 25 H 25 H 25 H Rate Respiratory Rate [Anterior Bilateral Throughout] Blood Pressure 113/51 118/52 120/55 O2 Sat by Pulse 100 100 100 Oximetry 06/02/16 06/02/16 06/02/16 07:30 07:45 07:58 Temperature Pulse Rate 83 82 84 Pulse Rate [ Anterior Bilateral Throughout] Pulse Rate [ From Monitor] Respiratory 25 H 25 H 25 H Rate Respiratory Rate [Anterior Bilateral Throughout] Blood Pressure 117/53 121/55 121/55 O2 Sat by Pulse 100 100 100 Oximetry 06/02/16 06/02/16 06/02/16 08:00 08:09 08:15 Temperature Pulse Rate 84 89 Pulse Rate [ 88 Anterior Bilateral Throughout] Pulse Rate [ 100 H From Monitor] Respiratory 12 25 H Rate Respiratory 20 Rate [Anterior Bilateral Throughout] Blood Pressure 122/52 122/50 O2 Sat by Pulse 100 100 Oximetry 06/02/16 06/02/16 08:24 08:30 Temperature Pulse Rate 89 Pulse Rate [ 90 Anterior Bilateral Throughout] Pulse Rate [ From Monitor] Respiratory 17 Rate Respiratory 18 Rate [Anterior Bilateral Throughout] Blood Pressure 122/50 O2 Sat by Pulse 100 Oximetry - General Appearance General appearance: well-developed, well-nourished, obese, sedated on ventilator (FiO2 35%), intubated, other (right groin hemodialysis catheter) EENT: PERRL Neck: supple Respiratory: Present: Other (coarse breath sounds) Cardiology: regular, S1S2, no murmurs Gastrointestinal: normoactive bowel sounds, obese Integumentary: no rash Neurologic: other (sedated) Musculoskeletal: other (no edema) Psychiatric: other (sedated) - Lab 06/02/16 04:00 06/02/16 04:00 Most recent lab results Calcium 5.3 mg/dL (8.4-10.2) L* 06/02/16 04:00 Phosphorus 6.6 mg/dL (2.5-4.5) H 05/30/16 05:30 Urine Creatinine 69.9 mg/dL (0.1-20.0) H 05/27/16 18:00 Urine Sodium 46 mEq/L 05/27/16 18:00
[2016-06-02] MEDS: LEVEMIR SUB-Q SCH (10:23)
[2016-06-02] MEDS: PROTONIX IV SCH (10:23)
--- NOTE | 2016-06-02 10:24 | Progress Note ---
Assessment and Plan - Patient Problems (1) Acute exacerbation of chronic obstructive pulmonary disease (COPD) Current Visit: Yes Status: Acute Plan to address problem: - continue supplemental oxygen to keep sats >/= 92% - continue empiric AB's and follow cultures - continue ALIN and LABA - continue systemic steroids with slow taper - complete VTE w/up (Unable to do VQ or CTA re: azotemia - repeat ABG prn - Holding on weaning till more stable - failed bedside SBT - added versed and increased sedation for now with daily sedation vacations - resume daily weaning trials (failed bedside SBT today) (2) Acute on chronic respiratory failure with hypoxemia Current Visit: Yes Status: Acute Plan to address problem: - as above - continue aspiration precautions / VAP bundles - continue bronchodilators and pulmonary toilet - resume fentanyl drip for sedation/analgesia - get KUB and decompress abdomen if necessary (will give simethicone in short term +/- reglan) - added seroquel and prn xanax for anxiolysis - resumed IV versed - weaning tenuously not unexpectedly so far; if does not wean well may need LTAC evaluation but not at this point ...he is critically ill on life sustaining interventions including MVS and at high risk for further deterioration including ...35' CCT (3) Obesity Current Visit: Yes Status: Acute Plan to address problem: - weight loss - outpatient PSG (4) Sepsis syndrome Current Visit: Yes Status: Acute Plan to address problem: - CRP unremarkable - Lactate trended down - hold on broadening AB's - get labs and r/o significant bleeding occultly - aggressive volume resuscitation - central venous access obtained - stopped alkalanized fluids - switch to more conservative volume management at this point - continue to follow off AB's - continue to wean levophed to keep MAP > 60-65mmHg - WBC up to 37k and pancultured yesterday due to fevers; all cultures NGTD and started on empiric AB's per primary - will get ID input (5) Anemia Current Visit: Yes Status: Acute Plan to address problem: - suspect inappropriate rise in Hb post 2 units PRBC's is due to hemodilution - will follow and hold on transfusion except Hb < 7.0 at this point - GI evaluation noted - change to bid PPI dosing - H&H holding - CBC in am (6) RUBIA (acute kidney injury) Current Visit: Yes Status: Acute Plan to address problem: - will consult nephrology sooner rather than later - likely ATN component in setting of IVVD - nephrology consulted and evaluation ongoing - oliguria developing now - will get vascath - 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 and will likely need [employer] - tolerated Dialysis - still making some urine - HD/UF held yesday due to tachycardia per nephrology - hopefully dialysis today (7) Thrombocytopenia Current Visit: Yes Status: Acute Plan to address problem: - likely related to sepsis and azotemia - stopped heparinoids - sent HIT assay (8) Tachycardia Current Visit: Yes Status: Acute Plan to address problem: - resolved - per cardiology (9) Small bowel obstruction Current Visit: Yes Status: Acute Plan to address problem: - re consult GI - consult surgery (10) Discharge planning issues Current Visit: Yes Status: Acute Plan to address problem: - weaning tenuously not unexpectedly so far; if does not wean well may need LTAC evaluation but not at this point ...he is critically ill on life sustaining interventions including MVS and at high risk for further deterioration including ...36' CCT Subjective Date of service: 06/02/16 Principal diagnosis: Acute on Chronic Hypoxemic Respiratory Failure Interval history: seen and examined at bedside; 24hour events reviewed; nursing and respiratory care staff consulted; no adverse overnight events reported to me; sedated now; RASS -1 to -2; tachycardia improved; KUB reportedly read as partial SBO and tube feeds held Objective Vital Signs - 12hr 06/01/16 06/01/16 06/01/16 22:30 22:45 23:00 Temperature Pulse Rate 101 H 101 H 101 H Pulse Rate [ Anterior Bilateral Throughout] Pulse Rate [ From Monitor] Respiratory 25 H 25 H 25 H Rate Respiratory Rate [Anterior Bilateral Throughout] Blood Pressure 109/50 110/52 118/51 O2 Sat by Pulse 99 99 99 Oximetry 06/01/16 06/01/16 06/01/16 23:09 23:15 23:30 Temperature Pulse Rate 100 H 100 H 100 H Pulse Rate [ Anterior Bilateral Throughout] Pulse Rate [ From Monitor] Respiratory 25 H 25 H Rate Respiratory Rate [Anterior Bilateral Throughout] Blood Pressure 118/51 115/52 121/54 O2 Sat by Pulse 99 99 99 Oximetry 06/01/16 06/02/16 06/02/16 23:45 00:00 00:15 Temperature Pulse Rate 99 H 100 H 100 H Pulse Rate [ Anterior Bilateral Throughout] Pulse Rate [ 97 H From Monitor] Respiratory 25 H 25 H 25 H Rate Respiratory Rate [Anterior Bilateral Throughout] Blood Pressure 111/52 122/53 125/52 O2 Sat by Pulse 99 99 99 Oximetry 06/02/16 06/02/16 06/02/16 00:16 00:30 00:45 Temperature Pulse Rate 100 H 98 H 100 H Pulse Rate [ Anterior Bilateral Throughout] Pulse Rate [ From Monitor] Respiratory 25 H 25 H 25 H Rate Respiratory Rate [Anterior Bilateral Throughout] Blood Pressure 125/52 122/53 123/54 O2 Sat by Pulse 99 99 99 Oximetry 06/02/16 06/02/16 06/02/16 01:00 01:14 01:15 Temperature Pulse Rate 98 H 97 H 97 H Pulse Rate [ Anterior Bilateral Throughout] Pulse Rate [ From Monitor] Respiratory 25 H 25 H 25 H Rate Respiratory Rate [Anterior Bilateral Throughout] Blood Pressure 128/52 128/52 122/54 O2 Sat by Pulse 99 99 99 Oximetry 06/02/16 06/02/16 06/02/16 01:30 01:45 02:00 Temperature Pulse Rate 97 H 97 H 109 H Pulse Rate [ Anterior Bilateral Throughout] Pulse Rate [ From Monitor] Respiratory 25 H 25 H 25 H Rate Respiratory Rate [Anterior Bilateral Throughout] Blood Pressure 126/56 126/54 144/63 O2 Sat by Pulse 99 99 99 Oximetry 06/02/16 06/02/16 06/02/16 02:10 02:15 02:30 Temperature Pulse Rate 111 H 109 H Pulse Rate [ 104 H Anterior Bilateral Throughout] Pulse Rate [ From Monitor] Respiratory 25 H 25 H Rate Respiratory 20 Rate [Anterior Bilateral Throughout] Blood Pressure 138/56 134/58 O2 Sat by Pulse 99 99 Oximetry 06/02/16 06/02/16 06/02/16 02:45 02:59 03:00 Temperature Pulse Rate 111 H 104 H 105 H Pulse Rate [ Anterior Bilateral Throughout] Pulse Rate [ From Monitor] Respiratory 25 H 25 H Rate Respiratory Rate [Anterior Bilateral Throughout] Blood Pressure 128/55 128/55 121/55 O2 Sat by Pulse 99 99 99 Oximetry 06/02/16 06/02/16 06/02/16 03:15 03:30 03:45 Temperature Pulse Rate 106 H 101 H 96 H Pulse Rate [ Anterior Bilateral Throughout] Pulse Rate [ From Monitor] Respiratory 25 H 25 H 25 H Rate Respiratory Rate [Anterior Bilateral Throughout] Blood Pressure 125/55 125/50 110/49 O2 Sat by Pulse 99 99 99 Oximetry 06/02/16 06/02/16 06/02/16 04:00 04:15 04:30 Temperature 98.7 F Pulse Rate 94 H 92 H 103 H Pulse Rate [ Anterior Bilateral Throughout] Pulse Rate [ 88 From Monitor] Respiratory 25 H 24 25 H Rate Respiratory Rate [Anterior Bilateral Throughout] Blood Pressure 110/49 115/51 122/59 O2 Sat by Pulse 99 99 99 Oximetry 06/02/16 06/02/16 06/02/16 04:46 05:00 05:15 Temperature Pulse Rate 109 H 96 H 91 H Pulse Rate [ Anterior Bilateral Throughout] Pulse Rate [ From Monitor] Respiratory 10 L 25 H 25 H Rate Respiratory Rate [Anterior Bilateral Throughout] Blood Pressure 122/59 122/59 109/49 O2 Sat by Pulse 97 99 99 Oximetry 06/02/16 06/02/16 06/02/16 05:30 05:32 05:45 Temperature Pulse Rate 90 90 89 Pulse Rate [ Anterior Bilateral Throughout] Pulse Rate [ From Monitor] Respiratory 25 H 25 H 25 H Rate Respiratory Rate [Anterior Bilateral Throughout] Blood Pressure 108/48 108/48 116/50 O2 Sat by Pulse 99 99 100 Oximetry 06/02/16 06/02/16 06/02/16 06:00 06:15 06:30 Temperature Pulse Rate 89 87 86 Pulse Rate [ Anterior Bilateral Throughout] Pulse Rate [ From Monitor] Respiratory 25 H 25 H 25 H Rate Respiratory Rate [Anterior Bilateral Throughout] Blood Pressure 119/51 117/50 119/51 O2 Sat by Pulse 99 100 100 Oximetry 06/02/16 06/02/16 06/02/16 06:36 06:45 07:00 Temperature Pulse Rate 85 84 84 Pulse Rate [ Anterior Bilateral Throughout] Pulse Rate [ From Monitor] Respiratory 25 H 25 H 25 H Rate Respiratory Rate [Anterior Bilateral Throughout] Blood Pressure 119/51 113/51 118/52 O2 Sat by Pulse 100 100 100 Oximetry 06/02/16 06/02/16 06/02/16 07:15 07:30 07:45 Temperature Pulse Rate 83 83 82 Pulse Rate [ Anterior Bilateral Throughout] Pulse Rate [ From Monitor] Respiratory 25 H 25 H 25 H Rate Respiratory Rate [Anterior Bilateral Throughout] Blood Pressure 120/55 117/53 121/55 O2 Sat by Pulse 100 100 100 Oximetry 06/02/16 06/02/16 06/02/16 07:58 08:00 08:09 Temperature Pulse Rate 84 84 Pulse Rate [ 88 Anterior Bilateral Throughout] Pulse Rate [ 100 H From Monitor] Respiratory 25 H 12 Rate Respiratory 20 Rate [Anterior Bilateral Throughout] Blood Pressure 121/55 122/52 O2 Sat by Pulse 100 100 Oximetry 06/02/16 06/02/16 06/02/16 08:15 08:24 08:30 Temperature Pulse Rate 89 89 Pulse Rate [ 90 Anterior Bilateral Throughout] Pulse Rate [ From Monitor] Respiratory 25 H 17 Rate Respiratory 18 Rate [Anterior Bilateral Throughout] Blood Pressure 122/50 122/50 O2 Sat by Pulse 100 100 Oximetry Constitutional: no acute distress, other (sedated) Eyes: non-icteric ENT: oropharynx moist Neck: supple, no lymphadenopathy Effort: mildly labored Ascultation: Bilateral: diminished breath sounds, rales (bases) Cardiovascular: regular rate and rhythm Gastrointestinal: normoactive bowel sounds, non-tender, other (distended, firm but not tense) Integumentary: normal Extremities: no cyanosis, no edema, pink and warm, pulses normal Neurologic: non-focal exam (grossly), unable to assess Psychiatric: other (sedated) CBC and BMP: 06/02/16 04:00 06/02/16 04:00 ABG, PT/INR, D-dimer: ABG POC ABG pH 7.341 (7.35-7.45) L 06/02/16 03:17 POC ABG pCO2 41.2 (35-45) 06/02/16 03:17 POC ABG pO2 98 (80-105) 06/02/16 03:17 POC ABG HCO3 22.3 06/02/16 03:17 POC ABG Total CO2 24 06/02/16 03:17 POC ABG O2 Sat 97 06/02/16 03:17 PT/INR, D-dimer PT 13.4 Sec. (12.2-14.9) 05/25/16 13:38 INR 1.03 (0.87-1.13) 05/25/16 13:38 D-Dimer 239.48 ng/mlDDU (0-234) H 05/23/16 14:16 Abnormal lab findings: Abnormal Labs 05/23/16 05/23/16 05/23/16 06:02 09:35 11:22 WBC RBC Hgb Hct RDW Plt Count Seg Neuts % (Manual) Lymphocytes % (Manual) Nucleated RBC % Seg Neutrophils # Man Lymphocytes # (Manual) Monocytes # (Manual) D-Dimer Heparin Anti-Xa Level POC ABG pH POC ABG pCO2 POC ABG pO2 Sodium Potassium Chloride Carbon Dioxide BUN Creatinine Glucose POC Glucose 174 H 232 H Hemoglobin A1c 6.4 H Lactic Acid Calcium Phosphorus AST ALT Total Creatine Kinase C-Reactive Protein Total Protein Albumin Urine WBC (Auto) Urine Creatinine Crossmatch 05/23/16 05/23/16 05/23/16 14:16 16:07 22:23 WBC RBC Hgb Hct RDW Plt Count Seg Neuts % (Manual) Lymphocytes % (Manual) Nucleated RBC % Seg Neutrophils # Man Lymphocytes # (Manual) Monocytes # (Manual) D-Dimer 239.48 H Heparin Anti-Xa Level POC ABG pH POC ABG pCO2 POC ABG pO2 Sodium Potassium Chloride Carbon Dioxide BUN Creatinine Glucose POC Glucose 126 H 171 H Hemoglobin A1c Lactic Acid Calcium Phosphorus AST ALT Total Creatine Kinase C-Reactive Protein Total Protein Albumin Urine WBC (Auto) Urine Creatinine Crossmatch 05/24/16 05/24/16 05/24/16 08:08 08:08 08:19 WBC RBC 3.24 L Hgb 9.6 L Hct 28.6 L RDW 15.7 H Plt Count Seg Neuts % (Manual) 71.0 H Lymphocytes % (Manual) 7.0 L Nucleated RBC % Seg Neutrophils # Man Lymphocytes # (Manual) 0.8 L Monocytes # (Manual) D-Dimer Heparin Anti-Xa Level POC ABG pH POC ABG pCO2 POC ABG pO2 Sodium 132 L Potassium Chloride 93.9 L Carbon Dioxide 18 L BUN 39 H Creatinine Glucose 166 H POC Glucose 173 H Hemoglobin A1c Lactic Acid Calcium Phosphorus AST ALT Total Creatine Kinase C-Reactive Protein Total Protein Albumin Urine WBC (Auto) Urine Creatinine Crossmatch 05/24/16 05/24/16 05/24/16 11:55 17:15 22:18 WBC RBC Hgb Hct RDW Plt Count Seg Neuts % (Manual) Lymphocytes % (Manual) Nucleated RBC % Seg Neutrophils # Man Lymphocytes # (Manual) Monocytes # (Manual) D-Dimer Heparin Anti-Xa Level POC ABG pH POC ABG pCO2 POC ABG pO2 Sodium Potassium Chloride Carbon Dioxide BUN Creatinine Glucose POC Glucose 210 H 147 H 163 H Hemoglobin A1c Lactic Acid Calcium Phosphorus AST ALT Total Creatine Kinase C-Reactive Protein Total Protein Albumin Urine WBC (Auto) Urine Creatinine Crossmatch 05/25/16 05/25/16 05/25/16 08:43 13:38 14:19 WBC RBC Hgb 10.0 L Hct 30.4 L RDW Plt Count Seg Neuts % (Manual) Lymphocytes % (Manual) Nucleated RBC % Seg Neutrophils # Man Lymphocytes # (Manual) Monocytes # (Manual) D-Dimer Heparin Anti-Xa Level POC ABG pH POC ABG pCO2 POC ABG pO2 Sodium Potassium Chloride Carbon Dioxide BUN Creatinine Glucose POC Glucose 177 H 180 H Hemoglobin A1c Lactic Acid Calcium Phosphorus AST ALT Total Creatine Kinase C-Reactive Protein Total Protein Albumin Urine WBC (Auto) Urine Creatinine Crossmatch 05/25/16 05/25/16 05/25/16 16:16 16:25 21:32 WBC RBC Hgb Hct RDW Plt Count Seg Neuts % (Manual) Lymphocytes % (Manual) Nucleated RBC % Seg Neutrophils # Man Lymphocytes # (Manual) Monocytes # (Manual) D-Dimer Heparin Anti-Xa Level POC ABG pH POC ABG pCO2 34.3 L POC ABG pO2 114 H Sodium Potassium Chloride Carbon Dioxide BUN Creatinine Glucose POC Glucose 193 H 183 H Hemoglobin A1c Lactic Acid Calcium Phosphorus AST ALT Total Creatine Kinase C-Reactive Protein Total Protein Albumin Urine WBC (Auto) Urine Creatinine Crossmatch 05/26/16 05/26/16 05/26/16 00:06 07:42 10:17 WBC RBC Hgb Hct RDW Plt Count Seg Neuts % (Manual) Lymphocytes % (Manual) Nucleated RBC % Seg Neutrophils # Man Lymphocytes # (Manual) Monocytes # (Manual) D-Dimer Heparin Anti-Xa Level 1.23 H 0.98 H POC ABG pH POC ABG pCO2 POC ABG pO2 Sodium Potassium Chloride Carbon Dioxide BUN Creatinine Glucose POC Glucose 206 H Hemoglobin A1c Lactic Acid Calcium Phosphorus AST ALT Total Creatine Kinase C-Reactive Protein Total Protein Albumin Urine WBC (Auto) Urine Creatinine Crossmatch 05/26/16 05/26/16 05/26/16 11:57 12:38 13:52 WBC 19.7 H RBC 2.56 L Hgb 7.4 L Hct 23.2 L D RDW 15.8 H Plt Count Seg Neuts % (Manual) Lymphocytes % (Manual) Nucleated RBC % Seg Neutrophils # Man Lymphocytes # (Manual) Monocytes # (Manual) D-Dimer Heparin Anti-Xa Level POC ABG pH 7.298 L POC ABG pCO2 27.8 L POC ABG pO2 132 H Sodium Potassium Chloride Carbon Dioxide BUN Creatinine Glucose POC Glucose 338 H Hemoglobin A1c Lactic Acid Calcium Phosphorus AST ALT Total Creatine Kinase C-Reactive Protein Total Protein Albumin Urine WBC (Auto) Urine Creatinine Crossmatch 05/26/16 05/26/16 05/26/16 15:47 15:47 17:06 WBC RBC Hgb Hct RDW Plt Count Seg Neuts % (Manual) Lymphocytes % (Manual) Nucleated RBC % Seg Neutrophils # Man Lymphocytes # (Manual) Monocytes # (Manual) D-Dimer Heparin Anti-Xa Level 1.35 H POC ABG pH 7.108 L POC ABG pCO2 POC ABG pO2 287 H Sodium Potassium Chloride Carbon Dioxide BUN Creatinine Glucose POC Glucose Hemoglobin A1c Lactic Acid 9.0 H* Calcium Phosphorus AST ALT Total Creatine Kinase C-Reactive Protein Total Protein Albumin Urine WBC (Auto) Urine Creatinine Crossmatch 05/26/16 05/26/16 05/26/16 17:12 17:15 17:53 WBC RBC Hgb Hct RDW Plt Count Seg Neuts % (Manual) Lymphocytes % (Manual) Nucleated RBC % Seg Neutrophils # Man Lymphocytes # (Manual) Monocytes # (Manual) D-Dimer Heparin Anti-Xa Level POC ABG pH 7.061 L POC ABG pCO2 47.3 H POC ABG pO2 35 L Sodium Potassium Chloride Carbon Dioxide BUN Creatinine Glucose POC Glucose 275 H Hemoglobin A1c Lactic Acid Calcium Phosphorus AST ALT Total Creatine Kinase C-Reactive Protein Total Protein Albumin Urine WBC (Auto) Urine Creatinine Crossmatch See Detail 05/26/16 05/26/16 05/26/16 17:53 22:08 23:00 WBC RBC Hgb 6.7 L Hct 22.3 L RDW Plt Count Seg Neuts % (Manual) Lymphocytes % (Manual) Nucleated RBC % Seg Neutrophils # Man Lymphocytes # (Manual) Monocytes # (Manual) D-Dimer Heparin Anti-Xa Level POC ABG pH 7.195 L POC ABG pCO2 POC ABG pO2 129 H Sodium Potassium Chloride Carbon Dioxide BUN Creatinine Glucose POC Glucose 250 H Hemoglobin A1c Lactic Acid Calcium Phosphorus AST ALT Total Creatine Kinase C-Reactive Protein Total Protein Albumin Urine WBC (Auto) Urine Creatinine Crossmatch 05/27/16 05/27/16 05/27/16 00:26 01:00 05:13 WBC RBC Hgb 8.0 L Hct 24.6 L RDW Plt Count Seg Neuts % (Manual) Lymphocytes % (Manual) Nucleated RBC % Seg Neutrophils # Man Lymphocytes # (Manual) Monocytes # (Manual) D-Dimer Heparin Anti-Xa Level POC ABG pH 7.273 L POC ABG pCO2 POC ABG pO2 62 L Sodium Potassium Chloride Carbon Dioxide BUN Creatinine Glucose POC Glucose Hemoglobin A1c Lactic Acid Calcium Phosphorus AST ALT Total Creatine Kinase C-Reactive Protein Total Protein Albumin Urine WBC (Auto) Urine Creatinine Crossmatch 05/27/16 05/27/16 05/27/16 05:50 05:50 07:54 WBC RBC Hgb 7.6 L Hct 23.1 L RDW Plt Count Seg Neuts % (Manual) Lymphocytes % (Manual) Nucleated RBC % Seg Neutrophils # Man Lymphocytes # (Manual) Monocytes # (Manual) D-Dimer Heparin Anti-Xa Level POC ABG pH POC ABG pCO2 POC ABG pO2 Sodium Potassium Chloride Carbon Dioxide BUN Creatinine Glucose POC Glucose 385 H Hemoglobin A1c Lactic Acid 4.0 H* Calcium Phosphorus AST ALT Total Creatine Kinase C-Reactive Protein Total Protein Albumin Urine WBC (Auto) Urine Creatinine Crossmatch 05/27/16 05/27/16 05/27/16 08:30 11:57 16:04 WBC RBC Hgb Hct RDW Plt Count Seg Neuts % (Manual) Lymphocytes % (Manual) Nucleated RBC % Seg Neutrophils # Man Lymphocytes # (Manual) Monocytes # (Manual) D-Dimer Heparin Anti-Xa Level POC ABG pH POC ABG pCO2 POC ABG pO2 Sodium Potassium Chloride 94.8 L Carbon Dioxide BUN 61 H Creatinine 2.9 H D Glucose 411 H POC Glucose 394 H 292 H Hemoglobin A1c Lactic Acid Calcium 6.3 L D Phosphorus AST 7200 H ALT 4300 H Total Creatine Kinase C-Reactive Protein Total Protein 4.5 L D Albumin 3.0 L Urine WBC (Auto) Urine Creatinine Crossmatch 05/27/16 05/27/16 05/27/16 17:15 18:00 18:25 WBC RBC Hgb 7.5 L Hct 22.5 L RDW Plt Count Seg Neuts % (Manual) Lymphocytes % (Manual) Nucleated RBC % Seg Neutrophils # Man Lymphocytes # (Manual) Monocytes # (Manual) D-Dimer Heparin Anti-Xa Level POC ABG pH POC ABG pCO2 POC ABG pO2 Sodium Potassium Chloride Carbon Dioxide BUN Creatinine Glucose POC Glucose Hemoglobin A1c Lactic Acid Calcium Phosphorus AST 8515 H ALT 4517 H Total Creatine Kinase C-Reactive Protein Total Protein 4.6 L Albumin 2.8 L Urine WBC (Auto) Urine Creatinine 69.9 H Crossmatch 05/27/16 05/28/16 05/28/16 21:44 04:50 04:50 WBC 19.9 H RBC 2.66 L Hgb 7.6 L Hct 23.3 L RDW 15.4 H Plt Count 101 L Seg Neuts % (Manual) Lymphocytes % (Manual) Nucleated RBC % Seg Neutrophils # Man Lymphocytes # (Manual) Monocytes # (Manual) D-Dimer Heparin Anti-Xa Level POC ABG pH POC ABG pCO2 POC ABG pO2 Sodium Potassium Chloride Carbon Dioxide BUN 79 H Creatinine 3.9 H Glucose 166 H POC Glucose 176 H Hemoglobin A1c Lactic Acid Calcium 6.3 L Phosphorus AST 5609 H ALT 4060 H Total Creatine Kinase 929 H C-Reactive Protein Total Protein 4.8 L Albumin 2.9 L Urine WBC (Auto) Urine Creatinine Crossmatch 05/28/16 05/28/16 05/28/16 05:17 07:38 12:41 WBC RBC Hgb Hct RDW Plt Count Seg Neuts % (Manual) Lymphocytes % (Manual) Nucleated RBC % Seg Neutrophils # Man Lymphocytes # (Manual) Monocytes # (Manual) D-Dimer Heparin Anti-Xa Level POC ABG pH POC ABG pCO2 POC ABG pO2 115 H Sodium Potassium Chloride Carbon Dioxide BUN Creatinine Glucose POC Glucose 168 H 173 H Hemoglobin A1c Lactic Acid Calcium Phosphorus AST ALT Total Creatine Kinase C-Reactive Protein Total Protein Albumin Urine WBC (Auto) Urine Creatinine Crossmatch 05/28/16 05/28/16 05/29/16 16:12 21:45 04:15 WBC RBC Hgb Hct RDW Plt Count 71 L Seg Neuts % (Manual) Lymphocytes % (Manual) Nucleated RBC % Seg Neutrophils # Man Lymphocytes # (Manual) Monocytes # (Manual) D-Dimer Heparin Anti-Xa Level POC ABG pH POC ABG pCO2 POC ABG pO2 Sodium Potassium Chloride Carbon Dioxide BUN Creatinine Glucose POC Glucose 210 H 221 H Hemoglobin A1c Lactic Acid Calcium Phosphorus AST ALT Total Creatine Kinase C-Reactive Protein Total Protein Albumin Urine WBC (Auto) Urine Creatinine Crossmatch 05/29/16 05/29/16 05/29/16 04:15 06:14 07:28 WBC RBC Hgb Hct RDW Plt Count Seg Neuts % (Manual) Lymphocytes % (Manual) Nucleated RBC % Seg Neutrophils # Man Lymphocytes # (Manual) Monocytes # (Manual) D-Dimer Heparin Anti-Xa Level POC ABG pH 7.285 L POC ABG pCO2 POC ABG pO2 63 L Sodium Potassium Chloride Carbon Dioxide 21 L BUN 98 H Creatinine 4.7 H Glucose 220 H POC Glucose 232 H Hemoglobin A1c Lactic Acid Calcium 5.8 L* Phosphorus AST 1464 H ALT 2628 H Total Creatine Kinase 792 H C-Reactive Protein Total Protein 4.5 L Albumin 2.8 L Urine WBC (Auto) Urine Creatinine Crossmatch 05/29/16 05/29/16 05/29/16 11:33 11:58 15:22 WBC RBC Hgb Hct RDW Plt Count Seg Neuts % (Manual) Lymphocytes % (Manual) Nucleated RBC % Seg Neutrophils # Man Lymphocytes # (Manual) Monocytes # (Manual) D-Dimer Heparin Anti-Xa Level POC ABG pH 7.291 L POC ABG pCO2 45.3 H POC ABG pO2 Sodium Potassium Chloride Carbon Dioxide BUN Creatinine Glucose POC Glucose 196 H 184 H Hemoglobin A1c Lactic Acid Calcium Phosphorus AST ALT Total Creatine Kinase C-Reactive Protein Total Protein Albumin Urine WBC (Auto) Urine Creatinine Crossmatch 05/29/16 05/30/16 05/30/16 22:16 04:53 05:30 WBC RBC Hgb Hct RDW Plt Count Seg Neuts % (Manual) Lymphocytes % (Manual) Nucleated RBC % Seg Neutrophils # Man Lymphocytes # (Manual) Monocytes # (Manual) D-Dimer Heparin Anti-Xa Level POC ABG pH 7.303 L POC ABG pCO2 POC ABG pO2 Sodium Potassium 5.5 H Chloride Carbon Dioxide BUN 113 H Creatinine 5.3 H Glucose 240 H POC Glucose 274 H Hemoglobin A1c Lactic Acid Calcium 5.5 L* Phosphorus 6.6 H AST 380 H ALT 1647 H Total Creatine Kinase 2131 H C-Reactive Protein Total Protein 4.4 L Albumin 2.8 L Urine WBC (Auto) Urine Creatinine Crossmatch 05/30/16 05/30/16 05/30/16 05:30 06:01 08:25 WBC 15.4 H RBC 2.45 L Hgb 7.0 L Hct 22.0 L RDW 16.1 H Plt Count 51 L Seg Neuts % (Manual) Lymphocytes % (Manual) 9.0 L Nucleated RBC % 7.0 H Seg Neutrophils # Man 8.5 H Lymphocytes # (Manual) Monocytes # (Manual) D-Dimer Heparin Anti-Xa Level POC ABG pH POC ABG pCO2 POC ABG pO2 Sodium Potassium Chloride Carbon Dioxide BUN Creatinine Glucose POC Glucose 268 H Hemoglobin A1c Lactic Acid Calcium Phosphorus AST ALT Total Creatine Kinase C-Reactive Protein Total Protein Albumin Urine WBC (Auto) Urine Creatinine Crossmatch See Detail 05/30/16 05/30/16 05/30/16 12:04 18:54 22:23 WBC RBC Hgb Hct RDW Plt Count Seg Neuts % (Manual) Lymphocytes % (Manual) Nucleated RBC % Seg Neutrophils # Man Lymphocytes # (Manual) Monocytes # (Manual) D-Dimer Heparin Anti-Xa Level POC ABG pH POC ABG pCO2 POC ABG pO2 Sodium Potassium Chloride Carbon Dioxide BUN Creatinine Glucose POC Glucose 251 H 210 H 199 H Hemoglobin A1c Lactic Acid Calcium Phosphorus AST ALT Total Creatine Kinase C-Reactive Protein Total Protein Albumin Urine WBC (Auto) Urine Creatinine Crossmatch 05/31/16 05/31/16 05/31/16 05:50 05:50 06:19 WBC 22.0 H RBC 3.61 L Hgb 10.3 L D Hct 31.9 L D RDW 15.6 H Plt Count 42 L Seg Neuts % (Manual) Lymphocytes % (Manual) Nucleated RBC % Seg Neutrophils # Man Lymphocytes # (Manual) Monocytes # (Manual) D-Dimer Heparin Anti-Xa Level POC ABG pH 7.320 L POC ABG pCO2 45.2 H POC ABG pO2 Sodium 134 L Potassium 5.1 H Chloride 97.0 L Carbon Dioxide BUN 77 H Creatinine 3.6 H Glucose 225 H POC Glucose Hemoglobin A1c Lactic Acid Calcium 6.0 L Phosphorus AST 133 H ALT 1165 H Total Creatine Kinase 1486 H C-Reactive Protein Total Protein 4.5 L Albumin 2.7 L Urine WBC (Auto) Urine Creatinine Crossmatch 05/31/16 05/31/16 05/31/16 07:42 12:13 12:34 WBC RBC Hgb Hct RDW Plt Count Seg Neuts % (Manual) Lymphocytes % (Manual) Nucleated RBC % Seg Neutrophils # Man Lymphocytes # (Manual) Monocytes # (Manual) D-Dimer Heparin Anti-Xa Level POC ABG pH 7.298 L POC ABG pCO2 POC ABG pO2 Sodium Potassium Chloride Carbon Dioxide BUN Creatinine Glucose POC Glucose 250 H 209 H Hemoglobin A1c Lactic Acid Calcium Phosphorus AST ALT Total Creatine Kinase C-Reactive Protein Total Protein Albumin Urine WBC (Auto) Urine Creatinine Crossmatch 05/31/16 05/31/16 05/31/16 13:45 17:43 21:38 WBC RBC Hgb Hct RDW Plt Count Seg Neuts % (Manual) Lymphocytes % (Manual) Nucleated RBC % Seg Neutrophils # Man Lymphocytes # (Manual) Monocytes # (Manual) D-Dimer Heparin Anti-Xa Level POC ABG pH POC ABG pCO2 POC ABG pO2 Sodium Potassium Chloride Carbon Dioxide BUN Creatinine Glucose POC Glucose 242 H 248 H Hemoglobin A1c Lactic Acid Calcium Phosphorus AST ALT Total Creatine Kinase C-Reactive Protein 4.10 H Total Protein Albumin Urine WBC (Auto) Urine Creatinine Crossmatch 06/01/16 06/01/16 06/01/16 03:35 03:35 04:16 WBC 28.8 H RBC 3.51 L Hgb 10.0 L Hct 31.2 L RDW 15.3 H Plt Count 42 L Seg Neuts % (Manual) 74.0 H Lymphocytes % (Manual) 3.0 L Nucleated RBC % 2.0 H Seg Neutrophils # Man 21.3 H Lymphocytes # (Manual) 0.9 L Monocytes # (Manual) 1.7 H D-Dimer Heparin Anti-Xa Level POC ABG pH 7.332 L POC ABG pCO2 POC ABG pO2 56 L Sodium Potassium Chloride Carbon Dioxide 21 L BUN 97 H Creatinine 3.9 H Glucose 206 H POC Glucose Hemoglobin A1c Lactic Acid Calcium 5.4 L* Phosphorus AST 70 H ALT 732 H Total Creatine Kinase C-Reactive Protein Total Protein 4.3 L Albumin 2.4 L Urine WBC (Auto) Urine Creatinine Crossmatch 06/01/16 06/01/16 06/01/16 07:31 11:38 15:23 WBC RBC Hgb Hct RDW Plt Count Seg Neuts % (Manual) Lymphocytes % (Manual) Nucleated RBC % Seg Neutrophils # Man Lymphocytes # (Manual) Monocytes # (Manual) D-Dimer Heparin Anti-Xa Level POC ABG pH POC ABG pCO2 POC ABG pO2 Sodium Potassium Chloride Carbon Dioxide BUN Creatinine Glucose POC Glucose 232 H 230 H 239 H Hemoglobin A1c Lactic Acid Calcium Phosphorus AST ALT Total Creatine Kinase C-Reactive Protein Total Protein Albumin Urine WBC (Auto) Urine Creatinine Crossmatch 06/01/16 06/02/16 06/02/16 17:15 00:32 03:17 WBC RBC Hgb Hct RDW Plt Count Seg Neuts % (Manual) Lymphocytes % (Manual) Nucleated RBC % Seg Neutrophils # Man Lymphocytes # (Manual) Monocytes # (Manual) D-Dimer Heparin Anti-Xa Level POC ABG pH 7.341 L POC ABG pCO2 POC ABG pO2 Sodium Potassium Chloride Carbon Dioxide BUN Creatinine Glucose POC Glucose 256 H Hemoglobin A1c Lactic Acid Calcium Phosphorus AST ALT Total Creatine Kinase C-Reactive Protein Total Protein Albumin Urine WBC (Auto) 63.0 H Urine Creatinine Crossmatch 06/02/16 06/02/16 04:00 04:00 WBC 37.1 H RBC 3.18 L Hgb 9.2 L Hct 28.5 L RDW Plt Count 49 L Seg Neuts % (Manual) Lymphocytes % (Manual) Nucleated RBC % Seg Neutrophils # Man Lymphocytes # (Manual) Monocytes # (Manual) D-Dimer Heparin Anti-Xa Level POC ABG pH POC ABG pCO2 POC ABG pO2 Sodium Potassium Chloride Carbon Dioxide BUN 124 H Creatinine 5.0 H Glucose 242 H POC Glucose Hemoglobin A1c Lactic Acid Calcium 5.3 L* Phosphorus AST 50 H ALT 458 H Total Creatine Kinase C-Reactive Protein Total Protein 4.1 L Albumin 2.3 L Urine WBC (Auto) Urine Creatinine Crossmatch Chest x-ray: image reviewed
--- NOTE | 2016-06-02 11:32 | Progress Note ---
Assessment and Plan Assessment and plan: Echocardiogram from May 26 shows diastolic dysfunction, systolic dysfunction is grossly normal Patient is a 80-year-old man with a history of type 2 diabetes mellitus, hypertension, dyslipidemia and chronic respiratory failure on 3 L oxygen at home due to COPD who presented with shortness breath and a cough on 05/22/2016. He was admitted for COPD exacerbation, He was placed on BiPAP. And then intubated on May 26, 2016. So, he was treated with iv heparin for suspected thromboembolism while awaiting VQ scan versus CTA chest. During his hospital course hematocrit started dropping, requiring blood transfusion and consultation with gastroenterology, heparin was dc. Also, Renal function is deteriorating questionable needing dialysis Acute on chronic hypoxic respiratory failure/ COPD exacerbation Continue abx, continue steroids and nebulizer treatments, continue daily chest x -ray, will need VQ scan vs CTA (depening on renal function )when stable enough to do the test Acute blood loss anemia No sign of acute blood loss, most likely due to sepsis/acute illness. Patient has been transfused, and heparin was discontinued. Patient will most likely benefit from retroperitoneal CT when clinically stable for study Acute kidney injury- Status post Vas-Cath placement, and has received renal replacement therapy Diabetes mellitus uncontrolled Continuing insulin SBO continue NG Tube to suction, Consult Surgery and GI Sepsis Continue abx, add flagyl fup blood cx and urine cx, no infiltrate seen on CXR, send stool for c diff Hypocalcemia corrected Ca is 6.6, IV CaCl ordered Critical care time spent: 35 minutes History Interval history: The patient has been weaned off levo fed drip x2 days. He continues to have abdominal distention, he continues to appear to have distress with breathing. He spiked fevers overnight. sp NG tube to suction for SBO Hospitalist Physical - Physical exam Narrative exam: General: Moderate respiratory distress, taking deep breaths with sighs HEENT: MMM, EOMI cardiac: S1-S2 heard lungs: Bibasilar crackles, ventilated breath sounds abdomen: Distended, bowel sounds positive extremities: 2+ edema in all extremities Skin: no rash or lesion Neuro: Intubated sedated - Constitutional Vitals: Temp Pulse Resp BP Pulse Ox 98.7 F 89 17 122/50 100 06/02/16 04:00 06/02/16 08:30 06/02/16 08:30 06/02/16 08:30 06/02/16 08:30 General appearance: Present: no acute distress Results - Labs CBC & Chem 7: 06/02/16 04:00 06/02/16 04:00 Labs: Laboratory Last Values WBC 37.1 K/mm3 (4.5-11.0) H 06/02/16 04:00 RBC 3.18 M/mm3 (3.65-5.03) L 06/02/16 04:00 Hgb 9.2 gm/dl (11.8-15.2) L 06/02/16 04:00 Hct 28.5 % (35.5-45.6) L 06/02/16 04:00 MCV 90 fl (84-94) 06/02/16 04:00 MCH 29 pg (28-32) 06/02/16 04:00 MCHC 32 % (32-34) 06/02/16 04:00 RDW 15.2 % (13.2-15.2) 06/02/16 04:00 Plt Count 49 K/mm3 (140-440) L 06/02/16 04:00 Lymph % (Auto) 13.0 % (13.4-35.0) L 05/22/16 14:25 [place] % (Auto) 13.1 % (0.0-7.3) H 05/22/16 14:25 Eos % (Auto) 1.1 % (0.0-4.3) 05/22/16 14:25 Baso % (Auto) 0.6 % (0.0-1.8) 05/22/16 14:25 Lymph # 0.8 K/mm3 (1.2-5.4) L 05/22/16 14:25 [place] # 0.8 K/mm3 (0.0-0.8) 05/22/16 14:25 Eos # 0.1 K/mm3 (0.0-0.4) 05/22/16 14:25 Baso # 0.0 K/mm3 (0.0-0.1) 05/22/16 14:25 Add Manual Diff Complete 06/01/16 03:35 Total Counted 100 06/01/16 03:35 Seg Neutrophils % Lens Polisher 06/01/16 03:35 Seg Neuts % (Manual) 74.0 % (40.0-70.0) H 06/01/16 03:35 Band Neutrophils % 15.0 % 06/01/16 03:35 Lymphocytes % (Manual) 3.0 % (13.4-35.0) L 06/01/16 03:35 Reactive Lymphs % (Man) 0 % 06/01/16 03:35 Monocytes % (Manual) 6.0 % (0.0-7.3) 06/01/16 03:35 Eosinophils % (Manual) 0 % (0.0-4.3) 06/01/16 03:35 Basophils % (Manual) 0 % (0.0-1.8) 06/01/16 03:35 Metamyelocytes % 2.0 % 06/01/16 03:35 Myelocytes % 0 % 06/01/16 03:35 Promyelocytes % 0 % 06/01/16 03:35 Blast Cells % 0 % 06/01/16 03:35 Nucleated RBC % 2.0 % (0.0-0.9) H 06/01/16 03:35 Seg Neutrophils # 4.4 K/mm3 (1.8-7.7) 05/22/16 14:25 Seg Neutrophils # Man 21.3 K/mm3 (1.8-7.7) H 06/01/16 03:35 Band Neutrophils # 4.3 K/mm3 06/01/16 03:35 Lymphocytes # (Manual) 0.9 K/mm3 (1.2-5.4) L 06/01/16 03:35 Abs React Lymphs (Man) 0.0 K/mm3 06/01/16 03:35 Monocytes # (Manual) 1.7 K/mm3 (0.0-0.8) H 06/01/16 03:35 Eosinophils # (Manual) 0.0 K/mm3 (0.0-0.4) 06/01/16 03:35 Basophils # (Manual) 0.0 K/mm3 (0.0-0.1) 06/01/16 03:35 Metamyelocytes # 0.6 K/mm3 06/01/16 03:35 Myelocytes # 0.0 K/mm3 06/01/16 03:35 Promyelocytes # 0.0 K/mm3 06/01/16 03:35 Blast Cells # 0.0 K/mm3 06/01/16 03:35 WBC Morphology Not Reportable 06/01/16 03:35 Hypersegmented Neuts Not Reportable 06/01/16 03:35 Hyposegmented Neuts Not Reportable 06/01/16 03:35 Hypogranular Neuts Not Reportable 06/01/16 03:35 Smudge Cells Not Reportable 06/01/16 03:35 Toxic Granulation Not Reportable 06/01/16 03:35 Toxic Vacuolation Not Reportable 06/01/16 03:35 Dohle Bodies Not Reportable 06/01/16 03:35 Pelger-Huet Anomaly Not Reportable 06/01/16 03:35 Bari Rods Not Reportable 06/01/16 03:35 Platelet Estimate Consistent w auto 06/01/16 03:35 Clumped Platelets Not Reportable 06/01/16 03:35 Plt Clumps, EDTA Not Reportable 06/01/16 03:35 Large Platelets Not Reportable 06/01/16 03:35 Giant Platelets Not Reportable 06/01/16 03:35 Platelet Satelliting Not Reportable 06/01/16 03:35 Plt Morphology Comment Not Reportable 06/01/16 03:35 RBC Morphology Not Reportable 06/01/16 03:35 Dimorphic RBCs Not Reportable 06/01/16 03:35 Polychromasia Not Reportable 06/01/16 03:35 Hypochromasia 1+ 06/01/16 03:35 Poikilocytosis Not Reportable 06/01/16 03:35 Anisocytosis 1+ 06/01/16 03:35 Microcytosis Not Reportable 06/01/16 03:35 Macrocytosis Not Reportable 06/01/16 03:35 Spherocytes Not Reportable 06/01/16 03:35 Pappenheimer Bodies Not Reportable 06/01/16 03:35 Sickle Cells Not Reportable 06/01/16 03:35 Target Cells Not Reportable 06/01/16 03:35 Tear Drop Cells Not Reportable 06/01/16 03:35 Ovalocytes Not Reportable 06/01/16 03:35 Helmet Cells Not Reportable 06/01/16 03:35 [place] Bodies Not Reportable 06/01/16 03:35 [place] Rings Not Reportable 06/01/16 03:35 Benny Cells Not Reportable 06/01/16 03:35 Bite Cells Not Reportable 06/01/16 03:35 Crenated Cell Not Reportable 06/01/16 03:35 Elliptocytes Not Reportable 06/01/16 03:35 Acanthocytes (Spur) Not Reportable 06/01/16 03:35 Rouleaux Not Reportable 06/01/16 03:35 Hemoglobin C Crystals Not Reportable 06/01/16 03:35 Schistocytes Not Reportable 06/01/16 03:35 Malaria parasites Not Reportable 06/01/16 03:35 Andrea Bodies Not Reportable 06/01/16 03:35 Hem Pathologist Commnt No 06/01/16 03:35 PT 13.4 Sec. (12.2-14.9) 05/25/16 13:38 INR 1.03 (0.87-1.13) 05/25/16 13:38 APTT 29.5 Sec. (24.2-36.6) 05/25/16 13:38 D-Dimer 239.48 ng/mlDDU (0-234) H 05/23/16 14:16 Heparin Anti-Xa Level 1.35 U.I./ml (0.3-0.7) H 05/26/16 15:47 POC ABG pH 7.341 (7.35-7.45) L 06/02/16 03:17 POC ABG pCO2 41.2 (35-45) 06/02/16 03:17 POC ABG pO2 98 (80-105) 06/02/16 03:17 POC ABG HCO3 22.3 06/02/16 03:17 POC ABG Total CO2 24 06/02/16 03:17 POC ABG O2 Sat 97 06/02/16 03:17 POC ABG Base Excess -3 06/02/16 03:17 VBG pH 7.403 (7.320-7.420) 05/22/16 14:24 FiO2 35 % 06/02/16 03:17 Sodium 141 mmol/L (137-145) D 06/01/16 03:35 Potassium 5.0 mmol/L (3.6-5.0) 06/01/16 03:35 Chloride 104.2 mmol/L (98-107) 06/01/16 03:35 Carbon Dioxide 22 mmol/L (22-30) 06/02/16 04:00 Anion Gap 21 mmol/L 06/01/16 03:35 BUN 124 mg/dL (9-20) H 06/02/16 04:00 Creatinine 5.0 mg/dL (0.8-1.5) H 06/02/16 04:00 Estimated GFR 11 ml/min 06/02/16 04:00 BUN/Creatinine Ratio 24.80 % 06/02/16 04:00 Glucose 242 mg/dL (75-100) H 06/02/16 04:00 POC Glucose 256 (70-105) H 06/02/16 00:32 Hemoglobin A1c 6.4 % (4-6) H 05/23/16 06:02 Lactic Acid 1.2 mmol/L (0.7-2.0) 05/31/16 13:45 Calcium 5.3 mg/dL (8.4-10.2) L* 06/02/16 04:00 Phosphorus 6.6 mg/dL (2.5-4.5) H 05/30/16 05:30 Total Bilirubin 0.3 mg/dL (0.1-1.2) 06/02/16 04:00 Direct Bilirubin 0.2 mg/dL (0-0.2) 05/27/16 18:25 Indirect Bilirubin 0.2 mg/dL 05/27/16 18:25 AST 50 units/L (5-40) H 06/02/16 04:00 ALT 458 units/L (7-56) H 06/02/16 04:00 Alkaline Phosphatase 94 units/L (35-129) 06/02/16 04:00 Total Creatine Kinase 1486 units/L (55-170) H 05/31/16 05:50 CK-MB (CK-2) 2.1 ng/mL (0.0-4.0) 05/22/16 14:24 CK-MB (CK-2) Rel Index 3.9 (0-4) 05/22/16 14:24 Troponin T 0.023 ng/mL (0.00-0.029) 05/22/16 14:24 C-Reactive Protein 4.10 mg/dL (0.00-1.30) H 05/31/16 13:45 NT-Pro-B Natriuret Pep 316.0 pg/mL (0-900) 05/22/16 14:24 Total Protein 4.1 g/dL (6.3-8.2) L 06/02/16 04:00 Albumin 2.3 g/dL (3.9-5) L 06/02/16 04:00 Albumin/Globulin Ratio 1.3 % 06/02/16 04:00 Urine Color Yellow (Yellow) 06/01/16 17:15 Urine Turbidity Cloudy (Clear) 06/01/16 17:15 Urine pH 5.0 (5.0-7.0) 06/01/16 17:15 Ur Specific [place] 1.016 (1.003-1.030) 06/01/16 17:15 Urine Protein 30 mg/dl mg/dL (Negative) 06/01/16 17:15 Urine Glucose (UA) Neg mg/dL (Negative) 06/01/16 17:15 Urine Ketones Neg mg/dL (Negative) 06/01/16 17:15 Urine Blood Lg (Negative) 06/01/16 17:15 Urine Nitrite Neg (Negative) 06/01/16 17:15 Urine Bilirubin Neg (Negative) 06/01/16 17:15 Urine Urobilinogen < 2.0 mg/dL (<2.0) 06/01/16 17:15 Ur Leukocyte Esterase Mod (Negative) 06/01/16 17:15 Urine WBC (Auto) 63.0 /HPF (0.0-6.0) H 06/01/16 17:15 Urine RBC (Auto) 83.0 /HPF (0.0-6.0) 06/01/16 17:15 U Epithel Cells (Auto) 1.0 /HPF (0-13.0) 06/01/16 17:15 Urine Bacteria (Auto) 3+ /HPF (Negative) 06/01/16 17:15 Hyaline Casts 4 /LPF 06/01/16 17:15 Granular Casts 30 /LPF 06/01/16 17:15 Urine Mucus Few /HPF 06/01/16 17:15 Urine Yeast (Budding) 3+ /HPF 06/01/16 17:15 Urine Creatinine 69.9 mg/dL (0.1-20.0) H 05/27/16 18:00 Urine Sodium 46 mEq/L 05/27/16 18:00 Hepatitis A IgM Ab -1 (NonReactive) 05/30/16 12:00 Hep Bs Antigen Non-reactive (Negative) 05/30/16 12:00 Hep B Core IgM Ab Non-reactive (NonReactive) 05/30/16 12:00 Hepatitis C Antibody Non-reactive (NonReactive) 05/30/16 12:00 Blood Type O POSITIVE 05/30/16 08:25 Antibody Screen Negative 05/30/16 08:25 Crossmatch See Detail 05/30/16 08:25
[2016-06-02] MEDS ORDERED: CALCIUM CHLORIDE IV ONE ×2 (12:00→15:30)
[2016-06-02] MEDS ORDERED: LEVEMIR SUB-Q ONE (13:00)
--- NOTE | 2016-06-02 15:04 | Progress Note ---
Addendum entered and electronically signed by RONY STEWARD MD 06/02/16 20:14 : Conservative cardiac management. Original Note: Assessment and Plan Acute hypoxic respiratory failure intubated on the vent COPD exacerbation Sepsis Acute blood loss anemia s/p transfusion of PRBCs Acute kidney injury initiated on HD this admission Diabetes mellitus Hypertension Metabolic acidosis Sinus tachycardia-a physiological response to underlying condition. No treatment indicated. Normal systolic function on echocardiogram. Conservative cardiac management. Subjective Date of service: 06/02/16 Principal diagnosis: Acute on Chronic Hypoxemic Respiratory Failure Interval history: Remains intubated on the vent. Objective Vital Signs Temp Pulse Pulse Pulse Pulse Resp Resp 06/02/16 14:45 127 H 06/02/16 14:30 119 H 06/02/16 14:15 121 H 06/02/16 14:07 117 H 12 06/02/16 14:00 119 H 15 06/02/16 13:45 131 H 17 06/02/16 13:31 126 H 16 06/02/16 13:30 126 H 06/02/16 13:15 125 H 17 06/02/16 13:01 125 H 15 06/02/16 13:00 125 H 06/02/16 12:45 119 H 15 06/02/16 12:30 98.1 F 108 H 15 06/02/16 12:15 105 H 16 06/02/16 12:00 91 H 25 H 06/02/16 11:45 91 H 25 H 06/02/16 11:44 91 H 06/02/16 11:30 91 H 12 06/02/16 11:15 93 H 25 H 06/02/16 11:00 92 H 19 06/02/16 10:45 91 H 17 06/02/16 10:30 92 H 16 06/02/16 10:15 93 H 17 06/02/16 10:00 95 H 9 L 06/02/16 09:45 95 H 16 06/02/16 09:30 96 H 15 06/02/16 09:15 99 H 11 L 06/02/16 09:00 103 H 10 L 06/02/16 08:45 98 H 12 06/02/16 08:40 95 H 15 06/02/16 08:30 89 17 06/02/16 08:24 90 18 06/02/16 08:15 89 25 H 06/02/16 08:09 88 20 06/02/16 08:00 98.4 F 84 100 H 12 06/02/16 07:58 84 25 H 06/02/16 07:45 82 25 H 06/02/16 07:30 83 25 H 06/02/16 07:15 83 25 H 06/02/16 07:00 84 25 H 06/02/16 06:45 84 25 H 06/02/16 06:36 85 25 H 06/02/16 06:30 86 25 H 06/02/16 06:15 87 25 H 06/02/16 06:00 89 25 H 06/02/16 05:45 89 25 H 06/02/16 05:32 90 25 H 06/02/16 05:30 90 25 H 06/02/16 05:15 91 H 25 H 06/02/16 05:00 96 H 25 H 06/02/16 04:46 109 H 10 L 06/02/16 04:30 103 H 25 H 06/02/16 04:15 92 H 24 06/02/16 04:00 98.7 F 94 H 88 25 H 06/02/16 03:45 96 H 25 H 06/02/16 03:30 101 H 25 H 06/02/16 03:15 106 H 25 H 06/02/16 03:00 105 H 25 H 06/02/16 02:59 104 H 06/02/16 02:45 111 H 25 H 06/02/16 02:30 109 H 25 H 06/02/16 02:15 111 H 25 H 06/02/16 02:10 104 H 20 06/02/16 02:00 109 H 25 H 06/02/16 01:45 97 H 25 H 06/02/16 01:30 97 H 25 H 06/02/16 01:15 97 H 25 H 06/02/16 01:14 97 H 25 H 06/02/16 01:00 98 H 25 H 06/02/16 00:45 100 H 25 H 06/02/16 00:30 98 H 25 H 06/02/16 00:16 100 H 25 H 06/02/16 00:15 100 H 25 H 06/02/16 00:00 100 H 97 H 25 H 06/01/16 23:45 99 H 25 H 06/01/16 23:30 100 H 25 H 06/01/16 23:15 100 H 25 H 06/01/16 23:09 100 H 06/01/16 23:00 101 H 25 H 06/01/16 22:45 101 H 25 H 06/01/16 22:30 101 H 25 H 06/01/16 22:15 101 H 25 H 06/01/16 22:00 103 H 25 H 06/01/16 21:45 104 H 25 H 06/01/16 21:30 109 H 25 H 06/01/16 21:15 110 H 16 06/01/16 21:01 101.6 F H 06/01/16 21:00 101 H 25 H 06/01/16 20:58 101 H 25 H 06/01/16 20:45 102 H 25 H 06/01/16 20:30 101 H 25 H 06/01/16 20:15 101 H 25 H 06/01/16 20:00 99 H 101 H 25 H 06/01/16 19:46 101 H 25 H 06/01/16 19:40 105 H 25 H 06/01/16 19:30 112 H 25 H 06/01/16 19:16 105 H 06/01/16 19:15 105 H 25 H 06/01/16 19:00 107 H 25 H 06/01/16 18:45 112 H 21 06/01/16 18:30 107 H 25 H 06/01/16 18:15 106 H 25 H 06/01/16 18:00 109 H 25 H 06/01/16 17:54 112 H 25 H 06/01/16 17:45 111 H 25 H 06/01/16 17:30 113 H 25 H 06/01/16 17:15 117 H 25 H 06/01/16 17:00 116 H 25 H 06/01/16 16:56 115 H 06/01/16 16:45 109 H 25 H 06/01/16 16:30 109 H 25 H 06/01/16 16:15 110 H 25 H 06/01/16 16:00 101.7 F H 110 H 25 H 06/01/16 15:52 109 H 109 H 25 H 06/01/16 15:45 111 H 25 H 06/01/16 15:30 110 H 25 H 06/01/16 15:15 109 H 25 H BP Pulse Ox Pulse Ox 06/02/16 14:45 140/72 06/02/16 14:30 103/65 06/02/16 14:15 113/57 06/02/16 14:07 114/58 100 06/02/16 14:00 114/58 100 06/02/16 13:45 120/53 100 06/02/16 13:31 120/53 99 06/02/16 13:30 120/53 06/02/16 13:15 90/42 98 06/02/16 13:01 99/51 98 06/02/16 13:00 90/42 06/02/16 12:45 146/59 98 06/02/16 12:30 128/65 99 99 06/02/16 12:15 128/65 99 06/02/16 12:00 123/53 99 06/02/16 11:45 124/56 100 06/02/16 11:44 121/53 100 06/02/16 11:30 121/53 100 06/02/16 11:15 123/53 99 06/02/16 11:00 115/52 100 06/02/16 10:45 123/53 100 06/02/16 10:30 115/50 100 06/02/16 10:15 111/52 100 06/02/16 10:00 120/52 100 06/02/16 09:45 116/50 100 06/02/16 09:30 117/54 99 06/02/16 09:15 124/52 99 06/02/16 09:00 127/54 98 06/02/16 08:45 123/47 99 06/02/16 08:40 122/50 98 06/02/16 08:30 122/50 100 06/02/16 08:24 06/02/16 08:15 122/50 100 06/02/16 08:09 06/02/16 08:00 122/52 100 06/02/16 07:58 121/55 100 06/02/16 07:45 121/55 100 06/02/16 07:30 117/53 100 06/02/16 07:15 120/55 100 06/02/16 07:00 118/52 100 06/02/16 06:45 113/51 100 06/02/16 06:36 119/51 100 06/02/16 06:30 119/51 100 06/02/16 06:15 117/50 100 06/02/16 06:00 119/51 99 06/02/16 05:45 116/50 100 06/02/16 05:32 108/48 99 06/02/16 05:30 108/48 99 06/02/16 05:15 109/49 99 06/02/16 05:00 122/59 99 06/02/16 04:46 122/59 97 06/02/16 04:30 122/59 99 06/02/16 04:15 115/51 99 06/02/16 04:00 110/49 99 06/02/16 03:45 110/49 99 06/02/16 03:30 125/50 99 06/02/16 03:15 125/55 99 06/02/16 03:00 121/55 99 06/02/16 02:59 128/55 99 06/02/16 02:45 128/55 99 06/02/16 02:30 134/58 99 06/02/16 02:15 138/56 99 06/02/16 02:10 06/02/16 02:00 144/63 99 06/02/16 01:45 126/54 99 06/02/16 01:30 126/56 99 06/02/16 01:15 122/54 99 06/02/16 01:14 128/52 99 06/02/16 01:00 128/52 99 06/02/16 00:45 123/54 99 06/02/16 00:30 122/53 99 06/02/16 00:16 125/52 99 06/02/16 00:15 125/52 99 06/02/16 00:00 122/53 99 06/01/16 23:45 111/52 99 06/01/16 23:30 121/54 99 06/01/16 23:15 115/52 99 06/01/16 23:09 118/51 99 06/01/16 23:00 118/51 99 06/01/16 22:45 110/52 99 06/01/16 22:30 109/50 99 06/01/16 22:15 114/50 99 06/01/16 22:00 112/51 99 06/01/16 21:45 119/49 99 06/01/16 21:30 109/54 99 06/01/16 21:15 109/54 98 06/01/16 21:01 06/01/16 21:00 89/40 98 06/01/16 20:58 101/46 98 06/01/16 20:45 101/46 99 06/01/16 20:30 99/44 99 06/01/16 20:15 95/44 98 06/01/16 20:00 95/45 99 06/01/16 19:46 99/40 100 06/01/16 19:40 06/01/16 19:30 126/53 98 06/01/16 19:16 103/45 99 06/01/16 19:15 107/41 99 06/01/16 19:00 103/43 99 06/01/16 18:45 110/51 99 06/01/16 18:30 102/42 99 06/01/16 18:15 103/37 98 06/01/16 18:00 103/42 99 06/01/16 17:54 110/42 99 06/01/16 17:45 110/42 99 06/01/16 17:30 98/38 98 06/01/16 17:15 150/42 98 06/01/16 17:00 113/42 99 06/01/16 16:56 135/51 99 06/01/16 16:45 113/42 98 06/01/16 16:30 107/42 99 06/01/16 16:15 104/40 98 06/01/16 16:00 106/42 98 06/01/16 15:52 100 06/01/16 15:45 120/50 99 06/01/16 15:30 115/46 99 06/01/16 15:15 112/46 99 - Physical Examination General: Other (intubated on the vent) Cardiac: Positive: Tachycardia - Labs and Meds Cardiac Enzymes 06/02/16 Range/Units 04:00 AST 50 H (5-40) units/L CBC 06/02/16 Range/Units 04:00 WBC 37.1 H (4.5-11.0) K/mm3 RBC 3.18 L (3.65-5.03) M/mm3 Hgb 9.2 L (11.8-15.2) gm/dl Hct 28.5 L (35.5-45.6) % Plt Count 49 L (140-440) K/mm3 Comprehensive Metabolic Panel 06/02/16 Range/Units 04:00 Carbon Dioxide 22 (22-30) mmol/L BUN 124 H (9-20) mg/dL Creatinine 5.0 H (0.8-1.5) mg/dL Glucose 242 H (75-100) mg/dL Calcium 5.3 L* (8.4-10.2) mg/dL AST 50 H (5-40) units/L ALT 458 H (7-56) units/L Alkaline Phosphatase 94 (35-129) units/L Total Protein 4.1 L (6.3-8.2) g/dL Albumin 2.3 L (3.9-5) g/dL - Imaging and Cardiology EKG: image reviewed (sinus tachycardia)
[2016-06-02] MEDS: HEPARIN IV PRN (15:16)
[2016-06-02] MEDS ORDERED: NACL 0.9% 1000 ML 100 ML IV PRN (15:30)
[2016-06-02] MEDS: FLAGYL 500 MG/100 ML 100 ML IV SCH ×2 (15:33→22:39)
--- NOTE | 2016-06-02 15:53 | Progress Note ---
Assessment and Plan Full consult dictated. 80 y/o obese male. COPD, DM, ARF, electrolye abnormalities including hypocalcemia. r/o pyelo Abd distended. non, tender Abd series - partial SBO vs ileus. pt extremely high surgical risk possible ileus secondary to pyelo? hypocalcemia? rec - ID eval. urine cults. electrolye correction. CT abd with po contrast thru NG r/o ileus vs partial sbo. r/o other intra abd process as possible source of ileus. will follow condition - critical prognosis poor Objective Vital Signs - 12hr 06/02/16 06/02/16 06/02/16 04:00 04:15 04:30 Temperature 98.7 F Pulse Rate 94 H 92 H 103 H Pulse Rate [ Anterior Bilateral Throughout] Pulse Rate [ 88 From Monitor] Respiratory 25 H 24 25 H Rate Respiratory Rate [Anterior Bilateral Throughout] Blood Pressure 110/49 115/51 122/59 O2 Sat by Pulse 99 99 99 Oximetry O2 Sat by Pulse Oximetry [ Anterior Bilateral Throughout] 06/02/16 06/02/16 06/02/16 04:46 05:00 05:15 Temperature Pulse Rate 109 H 96 H 91 H Pulse Rate [ Anterior Bilateral Throughout] Pulse Rate [ From Monitor] Respiratory 10 L 25 H 25 H Rate Respiratory Rate [Anterior Bilateral Throughout] Blood Pressure 122/59 122/59 109/49 O2 Sat by Pulse 97 99 99 Oximetry O2 Sat by Pulse Oximetry [ Anterior Bilateral Throughout] 06/02/16 06/02/16 06/02/16 05:30 05:32 05:45 Temperature Pulse Rate 90 90 89 Pulse Rate [ Anterior Bilateral Throughout] Pulse Rate [ From Monitor] Respiratory 25 H 25 H 25 H Rate Respiratory Rate [Anterior Bilateral Throughout] Blood Pressure 108/48 108/48 116/50 O2 Sat by Pulse 99 99 100 Oximetry O2 Sat by Pulse Oximetry [ Anterior Bilateral Throughout] 06/02/16 06/02/16 06/02/16 06:00 06:15 06:30 Temperature Pulse Rate 89 87 86 Pulse Rate [ Anterior Bilateral Throughout] Pulse Rate [ From Monitor] Respiratory 25 H 25 H 25 H Rate Respiratory Rate [Anterior Bilateral Throughout] Blood Pressure 119/51 117/50 119/51 O2 Sat by Pulse 99 100 100 Oximetry O2 Sat by Pulse Oximetry [ Anterior Bilateral Throughout] 06/02/16 06/02/16 06/02/16 06:36 06:45 07:00 Temperature Pulse Rate 85 84 84 Pulse Rate [ Anterior Bilateral Throughout] Pulse Rate [ From Monitor] Respiratory 25 H 25 H 25 H Rate Respiratory Rate [Anterior Bilateral Throughout] Blood Pressure 119/51 113/51 118/52 O2 Sat by Pulse 100 100 100 Oximetry O2 Sat by Pulse Oximetry [ Anterior Bilateral Throughout] 06/02/16 06/02/16 06/02/16 07:15 07:30 07:45 Temperature Pulse Rate 83 83 82 Pulse Rate [ Anterior Bilateral Throughout] Pulse Rate [ From Monitor] Respiratory 25 H 25 H 25 H Rate Respiratory Rate [Anterior Bilateral Throughout] Blood Pressure 120/55 117/53 121/55 O2 Sat by Pulse 100 100 100 Oximetry O2 Sat by Pulse Oximetry [ Anterior Bilateral Throughout] 06/02/16 06/02/16 06/02/16 07:58 08:00 08:09 Temperature 98.4 F Pulse Rate 84 84 Pulse Rate [ 88 Anterior Bilateral Throughout] Pulse Rate [ 100 H From Monitor] Respiratory 25 H 12 Rate Respiratory 20 Rate [Anterior Bilateral Throughout] Blood Pressure 121/55 122/52 O2 Sat by Pulse 100 100 Oximetry O2 Sat by Pulse Oximetry [ Anterior Bilateral Throughout] 06/02/16 06/02/16 06/02/16 08:15 08:24 08:30 Temperature Pulse Rate 89 89 Pulse Rate [ 90 Anterior Bilateral Throughout] Pulse Rate [ From Monitor] Respiratory 25 H 17 Rate Respiratory 18 Rate [Anterior Bilateral Throughout] Blood Pressure 122/50 122/50 O2 Sat by Pulse 100 100 Oximetry O2 Sat by Pulse Oximetry [ Anterior Bilateral Throughout] 06/02/16 06/02/16 06/02/16 08:40 08:45 09:00 Temperature Pulse Rate 95 H 98 H 103 H Pulse Rate [ Anterior Bilateral Throughout] Pulse Rate [ From Monitor] Respiratory 15 12 10 L Rate Respiratory Rate [Anterior Bilateral Throughout] Blood Pressure 122/50 123/47 127/54 O2 Sat by Pulse 98 99 98 Oximetry O2 Sat by Pulse Oximetry [ Anterior Bilateral Throughout] 06/02/16 06/02/16 06/02/16 09:15 09:30 09:45 Temperature Pulse Rate 99 H 96 H 95 H Pulse Rate [ Anterior Bilateral Throughout] Pulse Rate [ From Monitor] Respiratory 11 L 15 16 Rate Respiratory Rate [Anterior Bilateral Throughout] Blood Pressure 124/52 117/54 116/50 O2 Sat by Pulse 99 99 100 Oximetry O2 Sat by Pulse Oximetry [ Anterior Bilateral Throughout] 06/02/16 06/02/16 06/02/16 10:00 10:15 10:30 Temperature Pulse Rate 95 H 93 H 92 H Pulse Rate [ Anterior Bilateral Throughout] Pulse Rate [ From Monitor] Respiratory 9 L 17 16 Rate Respiratory Rate [Anterior Bilateral Throughout] Blood Pressure 120/52 111/52 115/50 O2 Sat by Pulse 100 100 100 Oximetry O2 Sat by Pulse Oximetry [ Anterior Bilateral Throughout] 06/02/16 06/02/16 06/02/16 10:45 11:00 11:15 Temperature Pulse Rate 91 H 92 H 93 H Pulse Rate [ Anterior Bilateral Throughout] Pulse Rate [ From Monitor] Respiratory 17 19 25 H Rate Respiratory Rate [Anterior Bilateral Throughout] Blood Pressure 123/53 115/52 123/53 O2 Sat by Pulse 100 100 99 Oximetry O2 Sat by Pulse Oximetry [ Anterior Bilateral Throughout] 06/02/16 06/02/16 06/02/16 11:30 11:44 11:45 Temperature Pulse Rate 91 H 91 H 91 H Pulse Rate [ Anterior Bilateral Throughout] Pulse Rate [ From Monitor] Respiratory 12 25 H Rate Respiratory Rate [Anterior Bilateral Throughout] Blood Pressure 121/53 121/53 124/56 O2 Sat by Pulse 100 100 100 Oximetry O2 Sat by Pulse Oximetry [ Anterior Bilateral Throughout] 06/02/16 06/02/16 06/02/16 12:00 12:15 12:30 Temperature 98.1 F Pulse Rate 91 H 105 H 108 H Pulse Rate [ Anterior Bilateral Throughout] Pulse Rate [ From Monitor] Respiratory 25 H 16 15 Rate Respiratory Rate [Anterior Bilateral Throughout] Blood Pressure 123/53 128/65 128/65 O2 Sat by Pulse 99 99 99 Oximetry O2 Sat by Pulse 99 Oximetry [ Anterior Bilateral Throughout] 06/02/16 06/02/16 06/02/16 12:45 13:00 13:01 Temperature Pulse Rate 119 H 125 H 125 H Pulse Rate [ Anterior Bilateral Throughout] Pulse Rate [ From Monitor] Respiratory 15 15 Rate Respiratory Rate [Anterior Bilateral Throughout] Blood Pressure 146/59 90/42 99/51 O2 Sat by Pulse 98 98 Oximetry O2 Sat by Pulse Oximetry [ Anterior Bilateral Throughout] 06/02/16 06/02/16 06/02/16 13:15 13:30 13:31 Temperature Pulse Rate 125 H 126 H 126 H Pulse Rate [ Anterior Bilateral Throughout] Pulse Rate [ From Monitor] Respiratory 17 16 Rate Respiratory Rate [Anterior Bilateral Throughout] Blood Pressure 90/42 120/53 120/53 O2 Sat by Pulse 98 99 Oximetry O2 Sat by Pulse Oximetry [ Anterior Bilateral Throughout] 06/02/16 06/02/16 06/02/16 13:45 14:00 14:07 Temperature Pulse Rate 131 H 119 H 117 H Pulse Rate [ Anterior Bilateral Throughout] Pulse Rate [ From Monitor] Respiratory 17 15 12 Rate Respiratory Rate [Anterior Bilateral Throughout] Blood Pressure 120/53 114/58 114/58 O2 Sat by Pulse 100 100 100 Oximetry O2 Sat by Pulse Oximetry [ Anterior Bilateral Throughout] 06/02/16 06/02/16 06/02/16 14:15 14:30 14:45 Temperature Pulse Rate 121 H 119 H 127 H Pulse Rate [ Anterior Bilateral Throughout] Pulse Rate [ From Monitor] Respiratory Rate Respiratory Rate [Anterior Bilateral Throughout] Blood Pressure 113/57 103/65 140/72 O2 Sat by Pulse Oximetry O2 Sat by Pulse Oximetry [ Anterior Bilateral Throughout] - Labs 06/02/16 04:00 06/02/16 04:00 Diabetes panel 06/02/16 Range/Units 04:00 Carbon Dioxide 22 (22-30) mmol/L BUN 124 H (9-20) mg/dL Creatinine 5.0 H (0.8-1.5) mg/dL Glucose 242 H (75-100) mg/dL Calcium 5.3 L* (8.4-10.2) mg/dL AST 50 H (5-40) units/L ALT 458 H (7-56) units/L Alkaline Phosphatase 94 (35-129) units/L Total Protein 4.1 L (6.3-8.2) g/dL Albumin 2.3 L (3.9-5) g/dL Calcium panel 06/02/16 Range/Units 04:00 Calcium 5.3 L* (8.4-10.2) mg/dL Albumin 2.3 L (3.9-5) g/dL Pituitary panel 06/02/16 Range/Units 04:00 Carbon Dioxide 22 (22-30) mmol/L BUN 124 H (9-20) mg/dL Creatinine 5.0 H (0.8-1.5) mg/dL Glucose 242 H (75-100) mg/dL Calcium 5.3 L* (8.4-10.2) mg/dL Adrenal panel 06/02/16 Range/Units 04:00 Carbon Dioxide 22 (22-30) mmol/L BUN 124 H (9-20) mg/dL Creatinine 5.0 H (0.8-1.5) mg/dL Glucose 242 H (75-100) mg/dL Calcium 5.3 L* (8.4-10.2) mg/dL Total Bilirubin 0.3 (0.1-1.2) mg/dL AST 50 H (5-40) units/L ALT 458 H (7-56) units/L Alkaline Phosphatase 94 (35-129) units/L Total Protein 4.1 L (6.3-8.2) g/dL Albumin 2.3 L (3.9-5) g/dL
[2016-06-02] MEDS ORDERED: CALCIUM CHLORIDE 1,000 MG in NACL 0.9% 100 ML IV ONE (16:00)
[2016-06-02] MEDS: SINGULAIR PO SCH (18:26)
--- NOTE | 2016-06-02 23:46 | Consultation ---
REASON FOR CONSULTATION: Rule out partial small bowel obstruction. HISTORY OF PRESENT ILLNESS: The patient is an 80-year-old gentleman who is currently intubated in ICU. Family is not present, and I have not been able to speak to the physician yet, so really no history is obtainable at this time. In reviewing the chart, it appears the patient has a chronic COPD who had exacerbation of COPD and thus was intubated and transferred here to ICU. PAST MEDICAL HISTORY: As per chart history of hypertension, diabetes, COPD as previously mentioned, hyperlipidemia, asthma. PAST SURGICAL HISTORY: Negative. The patient was worked up for PE and DVT, which apparently is negative at this time. Recent abdominal series was done which was portable and poor technique, but it is read as persistent partial small-bowel obstruction pattern. PHYSICAL EXAMINATION: GENERAL: At this time reveals the patient to be intubated and on pressor for blood pressure support. VITAL SIGNS: Show his most recent pressure be 140/72. The patient currently is on dialysis. ABDOMEN: Reveals it to be obese. There are no visible scars which concur with a history of no previous abdominal surgeries. The patient is difficult to exam at this time as he is on the vent and also sedated. However, during expiration phase of the vent the abdomen does appear to be slightly distended, but not firm. No pain can be elicited on exam. Bowel sounds are hypoactive to absent. LABORATORY DATA: Most recent blood work reveals a high white count of 37, H and H is 92 and 28.5. Electrolytes show very low calcium of 5.3. Also, last potassium was 5.4, but the patient currently is on dialysis. BUN is 124, creatinine is 5. Sodium 141, chloride is 104. I do not see a magnesium on the chart. It is noted also that there was 3+ bacteria and a cath urine consistent with possible pyelonephritis. IMPRESSION: At this time is that of an 80-year-old gentleman extremely high surgical risk, COPD, diabetes, morbidly obese. Rule out partial bowel obstruction versus ileus. The patient has multiple causes for possible ileus including a low calcium as well as a possible pyelonephritis. RECOMMENDATION: At this time, I would recommend a CT scan with p.o. contrast once the patient is clinically stable to try to rule out partial obstruction versus an ileus, also electrolyte correction. Also, ID evaluation and urine cultures and appropriate antibiotic treatment. The patient's condition is critical and prognosis is poor at this time. We will follow with you and await CT results. [facility]# [id number] LORRI/ROQUE
[2016-06-03] MEDS: NOVOLOG SUB-Q SCH ×5 (00:33→23:31)
[2016-06-03] MEDS: NACL 0.9% 1000 ML 1,000 ML IV SCH ×2 (00:35→21:00)
[2016-06-03] MEDS: DUONEB 0.5 MG-3 MG/3 ML SOLN IH SCH ×4 (02:41→20:07)
[2016-06-03 05:35] LABS: Hematocrit 24.5 % (35.5-45.6); Hemoglobin 7.8 gm/dl (11.8-15.2); Mean Corpuscular HGB Conc 32 % (32-34); Mean Corpuscular Hemoglobin 29 pg (28-32); Mean Corpuscular Volume 90 fl (84-94); Red Blood Count 2.72 M/mm3 (3.65-5.03)
[2016-06-03 05:36] LABS: Platelet Count 48 K/mm3 (140-440); White Blood Count 37.6 K/mm3 (4.5-11.0)
[2016-06-03 05:55] LABS: Albumin 2.3 g/dL (3.9-5); Albumin/Globulin Ratio 1.4 %; BUN/Creatinine Ratio 21.71; Bilirubin,Total 0.3 mg/dL (0.1-1.2); Chloride 105.8 mmol/L (98-107); Potassium 4.8 mmol/L (3.6-5.0)
[2016-06-03] MEDS: ZOSYN/NS 2.25 GM/50ML 50 ML IV SCH ×3 (06:15→21:01)
[2016-06-03] MEDS: FLAGYL 500 MG/100 ML 100 ML IV SCH ×3 (06:15→21:00)
[2016-06-03 06:19] LABS: Calcium 5.2 mg/dL (8.4-10.2)
[2016-06-03 07:38] LABS: Basophils % (Manual) 0 % (0.0-1.8); Blastocytes % (Manual) 0 %; Eosinophils % (Manual) 0 % (0.0-4.3); Total Cells Counted Percent 2.5
[2016-06-03 07:41] LABS: Diff Status Complete; Platelet Estimate Consistent w Auto; RBC Morphology Normal
[2016-06-03] MEDS: PULMICORT IH SCH ×2 (08:38→20:07)
--- NOTE | 2016-06-03 08:46 | Progress Note ---
Assessment and Plan - Patient Problems (1) RUBIA (acute kidney injury) Current Visit: Yes Status: Acute Plan to address problem: Acute Kidney Injury superimposed on CKD stage 3 in the setting of hypotension and anemia. Patient remain on levophed. Patient was started on hemodialysis yesterday due to worsening renal function, oliguria and Hyperkalemia. Plan to do hemodialysis tomorrow. 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 Renal prognosis guarded. (2) Shock Current Visit: Yes Status: Acute Plan to address problem: On Levophed. (3) Lactic acidosis Current Visit: Yes Status: Acute (4) Acute on chronic respiratory failure with hypoxemia Current Visit: Yes Status: Acute Plan to address problem: On vent. (5) Anemia Current Visit: Yes Status: Acute Qualifiers: Other causes of anemia: other cause, not classified Plan to address problem: Patient is found to have right retroperitoneal hematoma. Monitor H/H. (6) Shock liver Current Visit: Yes Status: Acute Plan to address problem: LFTs improving. Subjective Date of service: 06/03/16 Principal diagnosis: Acute on Chronic Hypoxemic Respiratory Failure Interval history: Patient is in the vent. Objective - Vital Signs Vital signs: Vital Signs - 12hr 06/02/16 06/02/16 06/02/16 21:00 21:15 21:30 Temperature Pulse Rate 119 H 123 H 122 H Pulse Rate [ Anterior Bilateral Throughout] Respiratory 15 16 16 Rate Respiratory Rate [Anterior Bilateral Throughout] Blood Pressure 154/64 149/56 132/57 O2 Sat by Pulse 99 99 99 Oximetry 06/02/16 06/02/16 06/02/16 21:45 22:00 22:15 Temperature Pulse Rate 123 H 117 H 112 H Pulse Rate [ Anterior Bilateral Throughout] Respiratory 15 25 H 15 Rate Respiratory Rate [Anterior Bilateral Throughout] Blood Pressure 143/50 133/52 119/47 O2 Sat by Pulse 98 98 99 Oximetry 06/02/16 06/02/16 06/02/16 22:30 22:45 23:00 Temperature Pulse Rate 124 H 125 H 125 H Pulse Rate [ Anterior Bilateral Throughout] Respiratory 15 18 15 Rate Respiratory Rate [Anterior Bilateral Throughout] Blood Pressure 126/55 138/73 111/56 O2 Sat by Pulse 98 99 99 Oximetry 06/02/16 06/02/16 06/02/16 23:15 23:23 23:30 Temperature Pulse Rate 121 H 119 H 116 H Pulse Rate [ Anterior Bilateral Throughout] Respiratory 15 19 15 Rate Respiratory Rate [Anterior Bilateral Throughout] Blood Pressure 122/54 122/54 106/46 O2 Sat by Pulse 98 99 99 Oximetry 06/02/16 06/03/16 06/03/16 23:45 00:00 00:15 Temperature 99.5 F Pulse Rate 118 H 120 H 125 H Pulse Rate [ Anterior Bilateral Throughout] Respiratory 12 16 18 Rate Respiratory Rate [Anterior Bilateral Throughout] Blood Pressure 106/61 109/59 124/53 O2 Sat by Pulse 99 98 99 Oximetry 06/03/16 06/03/16 06/03/16 00:17 00:30 00:45 Temperature Pulse Rate 125 H 121 H 121 H Pulse Rate [ Anterior Bilateral Throughout] Respiratory 14 15 Rate Respiratory Rate [Anterior Bilateral Throughout] Blood Pressure 124/53 127/49 127/54 O2 Sat by Pulse 98 98 98 Oximetry 06/03/16 06/03/16 06/03/16 01:00 01:15 01:31 Temperature Pulse Rate 121 H 123 H 121 H Pulse Rate [ Anterior Bilateral Throughout] Respiratory 16 12 14 Rate Respiratory Rate [Anterior Bilateral Throughout] Blood Pressure 138/57 119/59 111/54 O2 Sat by Pulse 98 98 98 Oximetry 06/03/16 06/03/16 06/03/16 01:45 01:47 02:00 Temperature Pulse Rate 122 H 120 H 124 H Pulse Rate [ Anterior Bilateral Throughout] Respiratory 18 16 16 Rate Respiratory Rate [Anterior Bilateral Throughout] Blood Pressure 102/56 102/56 98/55 O2 Sat by Pulse 99 98 98 Oximetry 06/03/16 06/03/16 06/03/16 02:15 02:30 02:40 Temperature Pulse Rate 116 H 120 H Pulse Rate [ 118 H Anterior Bilateral Throughout] Respiratory 13 16 Rate Respiratory 19 Rate [Anterior Bilateral Throughout] Blood Pressure 91/46 110/53 O2 Sat by Pulse 99 99 Oximetry 06/03/16 06/03/16 06/03/16 02:45 02:49 03:00 Temperature Pulse Rate 117 H 119 H Pulse Rate [ 121 H Anterior Bilateral Throughout] Respiratory 17 18 Rate Respiratory 17 Rate [Anterior Bilateral Throughout] Blood Pressure 123/54 120/51 O2 Sat by Pulse 100 99 Oximetry 06/03/16 06/03/16 06/03/16 03:15 03:30 03:45 Temperature Pulse Rate 118 H 121 H 113 H Pulse Rate [ Anterior Bilateral Throughout] Respiratory 15 16 14 Rate Respiratory Rate [Anterior Bilateral Throughout] Blood Pressure 114/54 121/56 122/47 O2 Sat by Pulse 99 98 99 Oximetry 06/03/16 06/03/16 06/03/16 04:00 04:15 04:26 Temperature 100.5 F H Pulse Rate 120 H 117 H 119 H Pulse Rate [ Anterior Bilateral Throughout] Respiratory 16 12 Rate Respiratory Rate [Anterior Bilateral Throughout] Blood Pressure 113/49 121/50 117/53 O2 Sat by Pulse 97 98 98 Oximetry 06/03/16 06/03/16 06/03/16 04:30 04:45 05:00 Temperature Pulse Rate 120 H 120 H 117 H Pulse Rate [ Anterior Bilateral Throughout] Respiratory 16 15 Rate Respiratory Rate [Anterior Bilateral Throughout] Blood Pressure 117/53 121/54 O2 Sat by Pulse 99 98 Oximetry 06/03/16 06/03/16 06/03/16 05:01 05:12 05:15 Temperature Pulse Rate 120 H 123 H 121 H Pulse Rate [ Anterior Bilateral Throughout] Respiratory 16 15 16 Rate Respiratory Rate [Anterior Bilateral Throughout] Blood Pressure 132/52 132/52 144/54 O2 Sat by Pulse 98 98 98 Oximetry 06/03/16 06/03/16 06/03/16 05:23 05:31 05:45 Temperature Pulse Rate 117 H 118 H 121 H Pulse Rate [ Anterior Bilateral Throughout] Respiratory 21 14 18 Rate Respiratory Rate [Anterior Bilateral Throughout] Blood Pressure 132/52 110/54 120/56 O2 Sat by Pulse 98 98 98 Oximetry 06/03/16 06/03/16 06/03/16 06:00 08:31 08:38 Temperature Pulse Rate 120 H 131 H Pulse Rate [ 132 H Anterior Bilateral Throughout] Respiratory 14 Rate Respiratory 18 Rate [Anterior Bilateral Throughout] Blood Pressure 131/57 112/60 O2 Sat by Pulse 98 98 Oximetry - General Appearance General appearance: well-developed, obese, sedated on ventilator (FiO2 35%), intubated, other (right groin hemodialysis catheter) EENT: PERRL Neck: supple Respiratory: Present: Other (coarse breath sounds) Cardiology: regular, S1S2 Gastrointestinal: normoactive bowel sounds, obese Integumentary: no rash, warm and dry Neurologic: other (sedated) Musculoskeletal: other (no edema) Psychiatric: other (sedated) - Lab 06/03/16 19:30 06/03/16 04:50 Most recent lab results Calcium 5.2 mg/dL (8.4-10.2) L* 06/03/16 04:50 Phosphorus 6.6 mg/dL (2.5-4.5) H 05/30/16 05:30 Magnesium 1.7 mg/dL (1.7-2.3) 06/02/16 20:00 Urine Creatinine 69.9 mg/dL (0.1-20.0) H 05/27/16 18:00 Urine Sodium 46 mEq/L 05/27/16 18:00
--- NOTE | 2016-06-03 09:47 | Consultation ---
History of Present Illness - Reason for Consult Consult date: 06/03/16 sepsis - History of Present Illness Mr Hansen is an 80-year-old male followed with a known history of COPD on home O2, HTN, HLD, obesity, and DM2, who presents for admission to [facility] on 05/22/2017 with worsening shortness of breath and probable COPD exacerbation. He has developed sepsis syndrome now and is seen for further ID follow. History is taken from the chart. The patient has developed evidence of sepsis on pressors with respiratory failure (intubated on the ventilator), AMS, lactic acidosis, RUBIA/HD, marked leukocytosis, elevated liver profile (? Shock liver), anemia (status post PRBCs ), and thrombocytopenia. Mr. Hansen has developed worsening abdominal distention with x-ray evidence of ileus versus small bowel obstruction. Cultures to date include positive blood culture on 06/01/16 with one of 4 bottles with gram-positive cocci in clusters. Urinalysis, with indwelling Griffin, shows bacteriuria and funguria with pyuria. An echocardiogram performed was a poor study but was without obvious vegetations. Lower extremity venous Doppler studies showed no evidence of DVT The patient is on Solu-Medrol 60 mg every 8 hours starting on 05/23/16. He is otherwise followed now on IV vancomycin, metronidazole and Zosyn. Past History Past Medical History: COPD, diabetes, hypertension, hyperlipidemia Medications and Allergies Allergies Allergy/AdvReac Type Severity Reaction Status Date / Time No Known Allergies Allergy Unverified 05/22/16 14:00 Home Medications Medication Instructions Recorded Confirmed Last Taken Type Albuterol Sulfate [Ventolin HFA] 2 puff IH Q4H PRN 05/22/16 05/22/16 05/21/16 History Alendronate Sodium [Fosamax] 70 mg PO QWEEK 05/22/16 05/22/16 05/21/16 History Aspirin [Aspirin TAB] 325 mg PO QDAY 05/22/16 05/22/16 05/21/16 History Diltiazem HCl [Diltiazem ER] 120 mg PO BID 05/22/16 05/22/16 05/21/16 History Ergocalciferol [Vitamin D2] 1 cap PO QWEEK 05/22/16 05/22/16 05/21/16 History Fluticasone [Flonase] 2 spray NS QDAY 05/22/16 05/22/16 05/21/16 History Fluticasone/Salmeterol [Advair 1 puff IH BID 05/22/16 05/22/16 05/21/16 History Diskus 500-50 mcg] Ipratropium/Albuterol Sulfate 1 ampul IH Q6HR PRN 05/22/16 05/22/16 05/21/16 History [Duoneb 0.5 mg-3 mg/3 ml Soln] Ketoconazole 2% [Nizoral] 1 applicatio TP QDAY 05/22/16 05/22/16 05/21/16 History Loratadine [Claritin] 10 mg PO DAILY 05/22/16 05/22/16 05/21/16 History Losartan [Cozaar] 50 mg PO QDAY 05/22/16 05/22/16 05/21/16 History Meclizine HCl [Meclizine CHEW] 25 mg PO QDAY PRN 05/22/16 05/22/16 05/21/16 History Montelukast [Singulair] 10 mg PO QPM 05/22/16 05/22/16 05/21/16 History Pravastatin Sodium [Pravastatin] 40 mg PO QHS 05/22/16 05/22/16 05/21/16 History Triamter/Hctz 37.5-25 mg 1 tab PO QDAY 05/22/16 05/22/16 05/21/16 History [Maxzide-25] metFORMIN [Glucophage] 500 mg PO BID 05/22/16 05/22/16 05/21/16 History Active Meds: Active Medications Acetaminophen (Tylenol) 650 mg PO Q4H PRN PRN Reason: Pain MILD(1-3)/Fever >100.5/PÉREZ Last Admin: 06/01/16 17:35 Dose: 650 mg Albumin Human (Alburx 25% (Albumin)) 25 gm IV RED PRN PRN Reason: Hypotension Albuterol (Proventil) 2.5 mg IH Q4HRT PRN PRN Reason: Shortness Of Breath Albuterol/Ipratropium (Duoneb 0.5 Mg-3 Mg/3 Ml Soln) 1 ampul IH Q6HRT ARLYN Last Admin: 06/03/16 08:37 Dose: 1 ampul Lipase/Protease/Amylase (Pancreaze Dr 10,500 Unit) 1 each FEEDTUBE PRN PRN PRN Reason: For Clogged Feeding Tube Bisacodyl (Dulcolax) 10 mg [place] QDAY PRN PRN Reason: Constipation unrelieved by MOM Budesonide (Pulmicort) 0.5 mg IH Q12HRT ARLYN Last Admin: 06/03/16 08:38 Dose: 0.5 mg Dextrose (D50w (25gm)) 50 ml IV PRN PRN PRN Reason: Hypoglycemia Epoetin Ld (Epogen) 20,000 unit IV RED PRN PRN Reason: hemoglobin Last Admin: 06/02/16 15:01 Dose: 20,000 unit Ergocalciferol (Vitamin D2) 50,000 unit PO Sa ARLYN Last Admin: 05/30/16 09:53 Dose: 50,000 unit Heparin Sodium (Porcine) (Heparin) 5,000 unit IV RED PRN PRN Reason: hemodialysis Last Admin: 06/02/16 15:16 Dose: 5,000 unit Hydrophilic Ointment (Vaseline Lip Therapy) 1 applic TP Q2HR PRN PRN Reason: Dry Lips Fentanyl Citrate (Fentanyl Drip Premix) 100 mls @ 4.1 mls/hr IV TITR ARLYN; 1 MCG /KG/HR PRN Reason: Protocol Last Admin: 06/01/16 18:30 Dose: 8.2 mls/hr Midazolam HCl (Versed/Ns 100mg/100ml) 100 mls @ 1 mls/hr IV TITR ARLYN; 1 MG/HR PRN Reason: Protocol Last Admin: 06/01/16 18:42 Dose: 1 mls/hr Sodium Chloride (Nacl 0.9% 1000 Ml) 1,000 mls @ 75 mls/hr IV DIRECT ARLYN Last Admin: 06/03/16 00:35 Dose: 75 mls/hr Norepinephrine 8 mg/ Sodium (Chloride) 250 mls @ 3.75 mls/hr IV TITR ARLYN; 2 MCG /MIN PRN Reason: Protocol Last Titration: 06/02/16 22:00 Dose: 6 mcg/min Sodium Chloride (Nacl 0.9% 1000 Ml) 100 mls @ 999 mls/hr IV RED PRN PRN Reason: Hypotension Piperacillin Sod/Tazobactam Sod (Zosyn/Ns 2.25 Gm/50ml) 50 mls @ 100 mls/hr IV Q8HR [facility] [place] Last Admin: 06/03/16 06:15 Dose: 100 mls/hr Metronidazole (Flagyl 500 Mg/100 Ml) 100 mls @ 100 mls/hr IV Q8HR [facility] [place] Last Admin: 06/03/16 06:15 Dose: 100 mls/hr Sodium Chloride (Nacl 0.9% 1000 Ml) 100 mls @ 999 mls/hr IV RED PRN PRN Reason: Hypotension Vancomycin HCl 1,500 mg/ (Sodium Chloride) 500 mls @ 333.333 mls/hr IV ONCE ONE Stop: 06/03/16 11:29 Insulin Aspart (Novolog) 0 units SUB-Q Q6HR ARLYN PRN Reason: Protocol Last Admin: 06/03/16 06:07 Dose: Not Given Insulin Detemir (Levemir) 35 units SUB-Q DAILY [facility] [place] Magnesium Hydroxide (Milk Of Magnesia) 30 ml PO Q4H PRN PRN Reason: Constipation Methylprednisolone Sodium Succinate (Solu-Medrol) 60 mg IV Q8HR [facility] [place] Last Admin: 06/03/16 06:15 Dose: 60 mg Montelukast Sodium (Singulair) 10 mg PO QPM [facility] [place] Last Admin: 06/02/16 18:26 Dose: Not Given Multi-Ingred Cream/Lotion/Oil/Oint (Artificial Tears Ophth Oint) 1 applic OU Q4HR PRN PRN Reason: Dry Eye(s) Last Admin: 05/30/16 01:17 Dose: 1 applic Ondansetron HCl (Zofran) 4 mg IV Q8H PRN PRN Reason: N/V unrelieved by Reglan Pantoprazole Sodium (Protonix) 40 mg IV QDAY [facility] [place] Last Admin: 06/02/16 10:23 Dose: 40 mg Simple Syrup (Simple Syrup) 15 ml FEEDTUBE PRN PRN PRN Reason: Hypoglycemia Simple Syrup (Simple Syrup) 30 ml FEEDTUBE PRN PRN PRN Reason: Hypoglycemia Simvastatin (Zocor) 20 mg PO QHS [facility] [place] Last Admin: 06/02/16 22:39 Dose: Not Given Sodium Bicarbonate (Sodium Bicarbonate) 325 mg FEEDTUBE PRN PRN PRN Reason: For Clogged Feeding Tube Sodium Chloride (Nacl 0.9% 500 Ml) 1 ml IV DIRECT ARLYN Vancomycin HCl (Vancomycin Pharmacy To Dose) 1 each IV PKCONSULT ARLYN PRN Reason: Protocol Review of Systems ROS unobtainable: due to endotracheal tube Physical Examination - Physical Exam Narrative exam: Obese male. Awakes easily.? Following commands. Orally intubated on the ventilator. On Levophed 6 g HEENT: Pupils are small and minimally reactive. Conjunctiva clear. Left nares NG tube in place. Orally intubated. NECK: No enlargement of the thyroid gland. No significant cervical lymphadenopathy. No jugular venous distention at 30. LUNGS: Decreased anterior breath sounds. No wheezes or rales.. HEART: Regular rate. S1 and S2 are normal. There are no murmurs, gallops, clicks or rubs heard. ABDOMEN: Soft. Moderate distention without focal point tenderness. No appreciable organomegaly, masses or ascites. Bowel sounds not heard. Right groin vas cath in place. Griffin catheter in place with dark yellow urine. EXTREMITIES: 1+ generalized edema. No evidence of distal cyanosis. Right upper extremity PICC dressings clean. SKIN: No other rash, ulcers or wounds. 3 sacral site with mild erythema. No skin breakdown. NEUROLOGIC: No focal findings. Awake.? Following commands. - Constitutional Vitals: Vital Signs Temp Pulse Resp BP Pulse Ox 99.6 F 132 H 18 112/60 98 06/03/16 08:00 06/03/16 08:38 06/03/16 08:38 06/03/16 08:31 06/03/16 08:31 Temperature -Last 24 Hours Temperature 99.6 F Temperature 100.5 F Temperature 99.5 F Temperature 97.8 F Temperature 98.1 F Temperature 98.1 F Results - Labs CBC & Chem 7: 06/03/16 04:50 06/03/16 04:50 Labs: Abnormal lab results 06/02/16 06/02/16 06/02/16 Range/Units 07:51 11:41 16:10 WBC (4.5-11.0) K/mm3 RBC (3.65-5.03) M/mm3 Hgb (11.8-15.2) gm/dl Hct (35.5-45.6) % Plt Count (140-440) K/mm3 Seg Neuts % (Manual) (40.0-70.0) % Lymphocytes % (Manual) (13.4-35.0) % Seg Neutrophils # Man (1.8-7.7) K/mm3 Lymphocytes # (Manual) (1.2-5.4) K/mm3 BUN (9-20) mg/dL Creatinine (0.8-1.5) mg/dL POC Glucose 245 H 254 H 215 H (70-105) Calcium (8.4-10.2) mg/dL ALT (7-56) units/L Total Protein (6.3-8.2) g/dL Albumin (3.9-5) g/dL 06/02/16 06/03/16 06/03/16 Range/Units 23:57 04:50 04:50 WBC 37.6 H (4.5-11.0) K/mm3 RBC 2.72 L (3.65-5.03) M/mm3 Hgb 7.8 L (11.8-15.2) gm/dl Hct 24.5 L (35.5-45.6) % Plt Count 48 L (140-440) K/mm3 Seg Neuts % (Manual) 96.0 H (40.0-70.0) % Lymphocytes % (Manual) 1.5 L (13.4-35.0) % Seg Neutrophils # Man 36.1 H (1.8-7.7) K/mm3 Lymphocytes # (Manual) 0.6 L (1.2-5.4) K/mm3 BUN 76 H (9-20) mg/dL Creatinine 3.5 H (0.8-1.5) mg/dL POC Glucose 162 H (70-105) Calcium 5.2 L* (8.4-10.2) mg/dL ALT 307 H (7-56) units/L Total Protein 4.0 L (6.3-8.2) g/dL Albumin 2.3 L (3.9-5) g/dL Assessment and Plan Assessment: Mr Hansen is an 80-year-old male followed with a known history of COPD on home O2, HTN, HLD, obesity, and DM2, who presents for admission to [facility] on 05/22/2017 with worsening shortness of breath and probable COPD exacerbation. He has developed sepsis syndrome now and is seen for further ID follow. Antibiotics: Vancomycin IV (1/9 -> Zosyn 2.25 g IV every 8 hour ( 06/01 - > Metronidazole 500 mg IV every 8 hour ( 06/02- > s/p Levaquin 750 mg IV daily (05/22- 05/26) Conclusions: 1. Sepsis syndrome - unclear etiology - Respiratory failure, AMS, pressors, lactic acidosis, RUBIA/HD, marked leukocytosis, elevated liver profile ( ? Shock liver), thrombocytopenia - R/O GI//Respiratory source 2. Leukocytosis -R/O 2nd to above -R/O 2nd to high-dose steroids 3. Positive blood culture -05/27 bottles on 06/01/16- gram-positive cocci in clusters; suspect contaminant 4. Ileus versus SBO 5. Anemia- probably multi-factorial - s/p PRBC transfusion 6. Hypercalcemia 7. Bacteriuria/funguria - Probable colonization with indwelling Griffin catheter 8. Hx COPD, DM, HTN, HLD, obesity Recommendations: - Continue broad-spectrum antibiotics to include vancomycin, Zosyn, metronidazole - Will add IV Diflucan 200 mg daily for empiric yeast coverage - Await CT abdomen - Await further culture data - Electrolytes and supportive therapy as per Medicine/Consultants
[2016-06-03] MEDS ORDERED: VANCOMYCIN VIAL 1,500 MG in NACL 0.9% 500 ML 500 ML IV ONE (10:00)
[2016-06-03] MEDS: PROTONIX IV SCH (10:36)
--- NOTE | 2016-06-03 11:33 | Progress Note ---
Assessment and Plan Acute hypoxic respiratory failure intubated on the vent COPD exacerbation Sepsis Ileus versus SBO Acute blood loss anemia s/p transfusion of PRBCs Acute kidney injury initiated on HD this admission Diabetes mellitus Hypertension Metabolic acidosis Sinus tachycardia-a physiological response to underlying condition. No treatment indicated. Normal systolic function on echocardiogram. Conservative cardiac management. Subjective Date of service: 06/03/16 Principal diagnosis: Acute on Chronic Hypoxemic Respiratory Failure Interval history: Remains intubated on the vent. Objective Vital Signs Temp Pulse Pulse Pulse Resp Resp BP 06/03/16 08:38 132 H 18 06/03/16 08:31 131 H 112/60 06/03/16 08:00 99.6 F 132 H 28 H 06/03/16 06:00 120 H 14 131/57 06/03/16 05:45 121 H 18 120/56 06/03/16 05:31 118 H 14 110/54 06/03/16 05:23 117 H 21 132/52 06/03/16 05:15 121 H 16 144/54 06/03/16 05:12 123 H 15 132/52 06/03/16 05:01 120 H 16 132/52 06/03/16 05:00 117 H 06/03/16 04:45 120 H 15 121/54 06/03/16 04:30 120 H 16 117/53 06/03/16 04:26 119 H 117/53 06/03/16 04:15 117 H 12 121/50 06/03/16 04:00 100.5 F H 120 H 16 113/49 06/03/16 03:45 113 H 14 122/47 06/03/16 03:30 121 H 16 121/56 06/03/16 03:15 118 H 15 114/54 06/03/16 03:00 119 H 18 120/51 06/03/16 02:49 121 H 17 06/03/16 02:45 117 H 17 123/54 06/03/16 02:40 118 H 19 06/03/16 02:30 120 H 16 110/53 06/03/16 02:15 116 H 13 91/46 06/03/16 02:00 124 H 16 98/55 06/03/16 01:47 120 H 16 102/56 06/03/16 01:45 122 H 18 102/56 06/03/16 01:31 121 H 14 111/54 01/11/17 01:15 123 H 12 119/59 06/03/16 01:00 121 H 16 138/57 06/03/16 00:45 121 H 15 127/54 06/03/16 00:30 121 H 14 127/49 06/03/16 00:17 125 H 124/53 06/03/16 00:15 125 H 18 124/53 06/03/16 00:00 99.5 F 120 H 16 109/59 06/02/16 23:45 118 H 12 106/61 06/02/16 23:30 116 H 15 106/46 06/02/16 23:23 119 H 19 122/54 06/02/16 23:15 121 H 15 122/54 06/02/16 23:00 125 H 15 111/56 06/02/16 22:45 125 H 18 138/73 06/02/16 22:30 124 H 15 126/55 06/02/16 22:15 112 H 15 119/47 06/02/16 22:00 117 H 25 H 133/52 06/02/16 21:45 123 H 15 143/50 06/02/16 21:30 122 H 16 132/57 06/02/16 21:15 123 H 16 149/56 06/02/16 21:00 119 H 15 154/64 06/02/16 20:45 116 H 15 148/59 06/02/16 20:30 109 H 25 H 144/53 06/02/16 20:15 120 H 15 137/55 06/02/16 20:05 114 H 15 06/02/16 20:00 110 H 101 H 14 120/55 06/02/16 19:55 106 H 131/59 06/02/16 19:54 113 H 13 06/02/16 19:53 97.8 F 06/02/16 19:45 106 H 13 131/59 06/02/16 19:30 101 H 14 134/56 06/02/16 19:15 102 H 17 137/53 06/02/16 19:00 100 H 15 133/60 06/02/16 18:45 103 H 13 124/61 06/02/16 18:30 105 H 14 138/60 06/02/16 18:15 108 H 13 145/61 06/02/16 18:00 116 H 19 131/71 06/02/16 17:45 125 H 14 127/61 06/02/16 17:31 120 H 15 127/61 06/02/16 17:15 120 H 17 127/61 06/02/16 17:00 111 H 12 115/55 06/02/16 16:45 112 H 15 114/53 06/02/16 16:30 115 H 12 123/54 06/02/16 16:15 117 H 15 114/51 06/02/16 16:00 119 H 14 116/58 06/02/16 15:50 130 H 125/65 06/02/16 15:45 122 H 15 133/55 06/02/16 15:30 130 H 16 125/65 06/02/16 15:15 127 H 16 111/72 06/02/16 15:00 128 H 16 139/68 06/02/16 14:45 126 H 16 111/63 06/02/16 14:31 129 H 16 111/63 06/02/16 14:30 119 H 103/65 06/02/16 14:15 115 H 13 113/57 06/02/16 14:07 117 H 12 114/58 06/02/16 14:00 119 H 15 114/58 06/02/16 13:51 134 H 17 103/65 06/02/16 13:45 131 H 17 120/53 06/02/16 13:31 126 H 16 120/53 06/02/16 13:30 126 H 120/53 06/02/16 13:15 125 H 17 90/42 06/02/16 13:01 125 H 15 99/51 06/02/16 13:00 125 H 90/42 06/02/16 12:45 119 H 15 146/59 06/02/16 12:30 98.1 F 108 H 15 128/65 06/02/16 12:15 105 H 16 128/65 06/02/16 12:00 91 H 25 H 123/53 06/02/16 11:45 91 H 25 H 124/56 06/02/16 11:44 91 H 121/53 Pulse Ox Pulse Ox 06/03/16 08:38 06/03/16 08:31 98 06/03/16 08:00 98 06/03/16 06:00 98 06/03/16 05:45 98 06/03/16 05:31 98 06/03/16 05:23 98 06/03/16 05:15 98 06/03/16 05:12 98 06/03/16 05:01 98 06/03/16 05:00 06/03/16 04:45 98 06/03/16 04:30 99 06/03/16 04:26 98 06/03/16 04:15 98 06/03/16 04:00 97 06/03/16 03:45 99 06/03/16 03:30 98 06/03/16 03:15 99 06/03/16 03:00 99 06/03/16 02:49 06/03/16 02:45 100 06/03/16 02:40 06/03/16 02:30 99 06/03/16 02:15 99 06/03/16 02:00 98 06/03/16 01:47 98 06/03/16 01:45 99 06/03/16 01:31 98 06/03/16 01:15 98 06/03/16 01:00 98 06/03/16 00:45 98 06/03/16 00:30 98 06/03/16 00:17 98 06/03/16 00:15 99 06/03/16 00:00 98 06/02/16 23:45 99 06/02/16 23:30 99 06/02/16 23:23 99 06/02/16 23:15 98 06/02/16 23:00 99 06/02/16 22:45 99 06/02/16 22:30 98 06/02/16 22:15 99 06/02/16 22:00 98 06/02/16 21:45 98 06/02/16 21:30 99 06/02/16 21:15 99 06/02/16 21:00 99 06/02/16 20:45 99 06/02/16 20:30 100 06/02/16 20:15 100 06/02/16 20:05 06/02/16 20:00 100 06/02/16 19:55 100 06/02/16 19:54 06/02/16 19:53 06/02/16 19:45 99 06/02/16 19:30 100 06/02/16 19:15 100 06/02/16 19:00 100 06/02/16 18:45 100 06/02/16 18:30 100 06/02/16 18:15 100 06/02/16 18:00 99 06/02/16 17:45 100 06/02/16 17:31 97 06/02/16 17:15 98 06/02/16 17:00 98 06/02/16 16:45 100 06/02/16 16:30 99 06/02/16 16:15 99 06/02/16 16:00 99 06/02/16 15:50 06/02/16 15:45 99 06/02/16 15:30 100 06/02/16 15:15 99 06/02/16 15:00 100 06/02/16 14:45 100 06/02/16 14:31 100 06/02/16 14:30 06/02/16 14:15 100 06/02/16 14:07 100 06/02/16 14:00 100 06/02/16 13:51 100 06/02/16 13:45 100 06/02/16 13:31 99 06/02/16 13:30 06/02/16 13:15 98 06/02/16 13:01 98 06/02/16 13:00 06/02/16 12:45 98 06/02/16 12:30 99 99 06/02/16 12:15 99 06/02/16 12:00 99 06/02/16 11:45 100 06/02/16 11:44 100 - Physical Examination General: Other (intubated on the vent) Cardiac: Positive: Tachycardia - Labs and Meds Cardiac Enzymes 06/03/16 Range/Units 04:50 AST 39 (5-40) units/L CBC 06/03/16 Range/Units 04:50 WBC 37.6 H (4.5-11.0) K/mm3 RBC 2.72 L (3.65-5.03) M/mm3 Hgb 7.8 L (11.8-15.2) gm/dl Hct 24.5 L (35.5-45.6) % Plt Count 48 L (140-440) K/mm3 Comprehensive Metabolic Panel 06/03/16 Range/Units 04:50 Sodium 144 (137-145) mmol/L Potassium 4.8 (3.6-5.0) mmol/L Chloride 105.8 (98-107) mmol/L Carbon Dioxide 23 (22-30) mmol/L BUN 76 H (9-20) mg/dL Creatinine 3.5 H (0.8-1.5) mg/dL Glucose 84 (75-100) mg/dL Calcium 5.2 L* (8.4-10.2) mg/dL AST 39 (5-40) units/L ALT 307 H (7-56) units/L Alkaline Phosphatase 76 (35-129) units/L Total Protein 4.0 L (6.3-8.2) g/dL Albumin 2.3 L (3.9-5) g/dL - Imaging and Cardiology EKG: image reviewed (sinus tachycardia)
[2016-06-03] MEDS: LEVEMIR SUB-Q SCH (12:06)
[2016-06-03] MEDS ORDERED: NACL 0.9% 500 ML 500 ML IV SCH (12:36)
--- NOTE | 2016-06-03 12:38 | Progress Note ---
Assessment and Plan - Patient Problems (1) Acute exacerbation of chronic obstructive pulmonary disease (COPD) Current Visit: Yes Status: Acute Plan to address problem: - continue supplemental oxygen to keep sats >/= 92% - continue empiric AB's and follow cultures - continue ALIN and LABA - continue systemic steroids with slow taper - complete VTE w/up (Unable to do VQ or CTA re: azotemia) - repeat ABG prn - Holding on weaning till more stable - failed bedside SBT - added versed and increased sedation for now with daily sedation vacations - resumed daily weaning trials (but failed bedside SBT today) (2) Acute on chronic respiratory failure with hypoxemia Current Visit: Yes Status: Acute Plan to address problem: - as above - continue aspiration precautions / VAP bundles - continue bronchodilators and pulmonary toilet - resume fentanyl drip for sedation/analgesia - get KUB and decompress abdomen if necessary (will give simethicone in short term +/- reglan) - added seroquel and prn xanax for anxiolysis - resumed IV versed - weaning tenuously not unexpectedly so far; if does not wean well may need LTAC evaluation but not at this point - continue daily PSV trials as tolerated (3) Obesity Current Visit: Yes Status: Acute Plan to address problem: - weight loss - outpatient PSG (4) Sepsis syndrome Current Visit: Yes Status: Acute Plan to address problem: - CRP unremarkable - Lactate trended down - hold on broadening AB's - get labs and r/o significant bleeding occultly - aggressive volume resuscitation - central venous access obtained - stopped alkalanized fluids - switch to more conservative volume management at this point - continue to follow off AB's - continue to wean levophed to keep MAP > 60-65mmHg - WBC up to 37k and pancultured yesterday due to fevers; all cultures NGTD and started on empiric AB's per primary - will get ID input - Anti-infectives per ID recs (5) Anemia Current Visit: Yes Status: Acute Qualifiers: Other causes of anemia: other cause, not classified Plan to address problem: - suspect inappropriate rise in Hb post 2 units PRBC's is due to hemodilution - will follow and hold on transfusion except Hb < 7.0 at this point - GI evaluation noted - change to bid PPI dosing - Hb noted but will hold on transfusion and trend - follow CT abd/pelvis (6) RUBIA (acute kidney injury) Current Visit: Yes Status: Acute Plan to address problem: - will consult nephrology sooner rather than later - likely ATN component in setting of IVVD - nephrology consulted and evaluation ongoing - oliguria developing now - will get vascath - discussed with funeral car chauffeur and will likely need POLL WATCHER - tolerated Dialysis - still making some urine - continue HD/UF per nephrology recs (7) Thrombocytopenia Current Visit: Yes Status: Acute Plan to address problem: - likely related to sepsis and azotemia - stopped heparinoids - await HIT assay result (8) Tachycardia Current Visit: Yes Status: Acute Plan to address problem: - improved - cardiology on case (9) Small bowel obstruction Current Visit: Yes Status: Acute Plan to address problem: - follow CT abd / pelvis especially re: retroperitoneal hematoma (10) Discharge planning issues Current Visit: Yes Status: Acute Plan to address problem: - weaning tenuously but not unexpectedly so far; if does not wean well may need LTAC evaluation but not at this point ...he is critically ill on life sustaining interventions including MVS and at high risk for further deterioration including ...32' CCT Subjective Date of service: 06/03/16 Principal diagnosis: Acute on Chronic Hypoxemic Respiratory Failure Interval history: seen and examined at bedside; 24hour events reviewed; nursing and respiratory care staff consulted; no adverse overnight events reported to me; resting on MVS ; tachycardia better; no emesis or overt aspiration; tolerated last HD session well; H&H dropping and will send for CT abd/pelvis Objective Vital Signs - 12hr 06/03/16 06/03/16 06/03/16 00:45 01:00 01:15 Temperature Pulse Rate 121 H 121 H 123 H Pulse Rate [ Anterior Bilateral Throughout] Pulse Rate [ From Monitor] Respiratory 15 16 12 Rate Respiratory Rate [Anterior Bilateral Throughout] Blood Pressure 127/54 138/57 119/59 O2 Sat by Pulse 98 98 98 Oximetry 06/03/16 06/03/16 06/03/16 01:31 01:45 01:47 Temperature Pulse Rate 121 H 122 H 120 H Pulse Rate [ Anterior Bilateral Throughout] Pulse Rate [ From Monitor] Respiratory 14 18 16 Rate Respiratory Rate [Anterior Bilateral Throughout] Blood Pressure 111/54 102/56 102/56 O2 Sat by Pulse 98 99 98 Oximetry 06/03/16 06/03/16 06/03/16 02:00 02:15 02:30 Temperature Pulse Rate 124 H 116 H 120 H Pulse Rate [ Anterior Bilateral Throughout] Pulse Rate [ From Monitor] Respiratory 16 13 16 Rate Respiratory Rate [Anterior Bilateral Throughout] Blood Pressure 98/55 91/46 110/53 O2 Sat by Pulse 98 99 99 Oximetry 06/03/16 06/03/16 06/03/16 02:40 02:45 02:49 Temperature Pulse Rate 117 H Pulse Rate [ 118 H 121 H Anterior Bilateral Throughout] Pulse Rate [ From Monitor] Respiratory 17 Rate Respiratory 19 17 Rate [Anterior Bilateral Throughout] Blood Pressure 123/54 O2 Sat by Pulse 100 Oximetry 06/03/16 06/03/16 06/03/16 03:00 03:15 03:30 Temperature Pulse Rate 119 H 118 H 121 H Pulse Rate [ Anterior Bilateral Throughout] Pulse Rate [ From Monitor] Respiratory 18 15 16 Rate Respiratory Rate [Anterior Bilateral Throughout] Blood Pressure 120/51 114/54 121/56 O2 Sat by Pulse 99 99 98 Oximetry 06/03/16 06/03/16 06/03/16 03:45 04:00 04:15 Temperature 100.5 F H Pulse Rate 113 H 120 H 117 H Pulse Rate [ Anterior Bilateral Throughout] Pulse Rate [ From Monitor] Respiratory 14 16 12 Rate Respiratory Rate [Anterior Bilateral Throughout] Blood Pressure 122/47 113/49 121/50 O2 Sat by Pulse 99 97 98 Oximetry 06/03/16 06/03/16 06/03/16 04:26 04:30 04:45 Temperature Pulse Rate 119 H 120 H 120 H Pulse Rate [ Anterior Bilateral Throughout] Pulse Rate [ From Monitor] Respiratory 16 15 Rate Respiratory Rate [Anterior Bilateral Throughout] Blood Pressure 117/53 117/53 121/54 O2 Sat by Pulse 98 99 98 Oximetry 06/03/16 06/03/16 06/03/16 05:00 05:01 05:12 Temperature Pulse Rate 117 H 120 H 123 H Pulse Rate [ Anterior Bilateral Throughout] Pulse Rate [ From Monitor] Respiratory 16 15 Rate Respiratory Rate [Anterior Bilateral Throughout] Blood Pressure 132/52 132/52 O2 Sat by Pulse 98 98 Oximetry 06/03/16 06/03/16 06/03/16 05:15 05:23 05:31 Temperature Pulse Rate 121 H 117 H 118 H Pulse Rate [ Anterior Bilateral Throughout] Pulse Rate [ From Monitor] Respiratory 16 21 14 Rate Respiratory Rate [Anterior Bilateral Throughout] Blood Pressure 144/54 132/52 110/54 O2 Sat by Pulse 98 98 98 Oximetry 06/03/16 06/03/16 06/03/16 05:45 06:00 06:05 Temperature Pulse Rate 121 H 120 H 123 H Pulse Rate [ Anterior Bilateral Throughout] Pulse Rate [ From Monitor] Respiratory 18 14 15 Rate Respiratory Rate [Anterior Bilateral Throughout] Blood Pressure 120/56 131/57 131/57 O2 Sat by Pulse 98 98 98 Oximetry 06/03/16 06/03/16 06/03/16 06:15 06:30 06:45 Temperature Pulse Rate 120 H 120 H 125 H Pulse Rate [ Anterior Bilateral Throughout] Pulse Rate [ From Monitor] Respiratory 15 13 13 Rate Respiratory Rate [Anterior Bilateral Throughout] Blood Pressure 119/57 118/55 109/57 O2 Sat by Pulse 99 98 98 Oximetry 06/03/16 06/03/16 06/03/16 07:00 07:15 07:30 Temperature Pulse Rate 122 H 124 H 124 H Pulse Rate [ Anterior Bilateral Throughout] Pulse Rate [ From Monitor] Respiratory 15 20 20 Rate Respiratory Rate [Anterior Bilateral Throughout] Blood Pressure 102/54 118/65 108/41 O2 Sat by Pulse 98 98 98 Oximetry 06/03/16 06/03/16 06/03/16 07:45 08:00 08:15 Temperature 99.6 F Pulse Rate 126 H 133 H 135 H Pulse Rate [ Anterior Bilateral Throughout] Pulse Rate [ 132 H From Monitor] Respiratory 17 15 14 Rate Respiratory Rate [Anterior Bilateral Throughout] Blood Pressure 122/47 111/51 115/60 O2 Sat by Pulse 97 97 98 Oximetry 06/03/16 06/03/16 06/03/16 08:30 08:31 08:38 Temperature Pulse Rate 131 H 131 H Pulse Rate [ 132 H Anterior Bilateral Throughout] Pulse Rate [ From Monitor] Respiratory 14 Rate Respiratory 18 Rate [Anterior Bilateral Throughout] Blood Pressure 112/60 112/60 O2 Sat by Pulse 98 98 Oximetry 06/03/16 06/03/16 06/03/16 08:45 09:00 09:15 Temperature Pulse Rate 129 H 128 H 120 H Pulse Rate [ Anterior Bilateral Throughout] Pulse Rate [ From Monitor] Respiratory 25 H 25 H 25 H Rate Respiratory Rate [Anterior Bilateral Throughout] Blood Pressure 106/52 104/45 109/53 O2 Sat by Pulse 100 100 100 Oximetry 06/03/16 06/03/16 06/03/16 09:30 09:45 10:00 Temperature Pulse Rate 133 H 135 H 134 H Pulse Rate [ Anterior Bilateral Throughout] Pulse Rate [ From Monitor] Respiratory 23 23 22 Rate Respiratory Rate [Anterior Bilateral Throughout] Blood Pressure 104/59 120/63 117/56 O2 Sat by Pulse 100 100 100 Oximetry 06/03/16 06/03/16 06/03/16 10:15 10:30 10:45 Temperature Pulse Rate 134 H 131 H 133 H Pulse Rate [ Anterior Bilateral Throughout] Pulse Rate [ From Monitor] Respiratory 16 25 H 22 Rate Respiratory Rate [Anterior Bilateral Throughout] Blood Pressure 108/42 106/47 110/53 O2 Sat by Pulse 100 100 100 Oximetry 06/03/16 06/03/16 06/03/16 11:01 11:15 11:22 Temperature Pulse Rate 137 H 135 H 135 H Pulse Rate [ Anterior Bilateral Throughout] Pulse Rate [ From Monitor] Respiratory 11 L 22 14 Rate Respiratory Rate [Anterior Bilateral Throughout] Blood Pressure 107/56 123/65 123/65 O2 Sat by Pulse 100 100 100 Oximetry 06/03/16 06/03/16 06/03/16 11:30 11:31 11:45 Temperature Pulse Rate 132 H 128 H 125 H Pulse Rate [ Anterior Bilateral Throughout] Pulse Rate [ From Monitor] Respiratory 22 18 15 Rate Respiratory Rate [Anterior Bilateral Throughout] Blood Pressure 129/60 129/60 122/54 O2 Sat by Pulse 100 100 98 Oximetry 06/03/16 06/03/16 11:49 12:00 Temperature Pulse Rate 124 H 135 H Pulse Rate [ Anterior Bilateral Throughout] Pulse Rate [ From Monitor] Respiratory 11 L 15 Rate Respiratory Rate [Anterior Bilateral Throughout] Blood Pressure 122/54 130/62 O2 Sat by Pulse 99 99 Oximetry Constitutional: no acute distress, other (sedated) Eyes: non-icteric ENT: oropharynx moist Neck: supple, no lymphadenopathy Effort: mildly labored Ascultation: Bilateral: diminished breath sounds, rales (bases) Cardiovascular: regular rate and rhythm Gastrointestinal: normoactive bowel sounds, non-tender, other (distended, firm but not tense) Integumentary: normal Extremities: no cyanosis, no edema, pink and warm, pulses normal Neurologic: non-focal exam (grossly), unable to assess Psychiatric: other (sedated) CBC and BMP: 06/04/16 05:25 06/04/16 05:25 ABG, PT/INR, D-dimer: ABG POC ABG pH 7.341 (7.35-7.45) L 06/02/16 03:17 POC ABG pCO2 41.2 (35-45) 06/02/16 03:17 POC ABG pO2 98 (80-105) 06/02/16 03:17 POC ABG HCO3 22.3 06/02/16 03:17 POC ABG Total CO2 24 06/02/16 03:17 POC ABG O2 Sat 97 06/02/16 03:17 PT/INR, D-dimer PT 13.4 Sec. (12.2-14.9) 05/25/16 13:38 INR 1.03 (0.87-1.13) 05/25/16 13:38 D-Dimer 239.48 ng/mlDDU (0-234) H 05/23/16 14:16 Abnormal lab findings: Abnormal Labs 05/23/16 05/23/16 05/23/16 06:02 09:35 11:22 WBC RBC Hgb Hct RDW Plt Count Seg Neuts % (Manual) Lymphocytes % (Manual) Nucleated RBC % Seg Neutrophils # Man Lymphocytes # (Manual) Monocytes # (Manual) D-Dimer Heparin Anti-Xa Level POC ABG pH POC ABG pCO2 POC ABG pO2 Sodium Potassium Chloride Carbon Dioxide BUN Creatinine Glucose POC Glucose 174 H 232 H Hemoglobin A1c 6.4 H Lactic Acid Calcium Phosphorus AST ALT Total Creatine Kinase C-Reactive Protein Total Protein Albumin Urine WBC (Auto) Urine Creatinine Crossmatch 05/23/16 05/23/16 05/23/16 14:16 16:07 22:23 WBC RBC Hgb Hct RDW Plt Count Seg Neuts % (Manual) Lymphocytes % (Manual) Nucleated RBC % Seg Neutrophils # Man Lymphocytes # (Manual) Monocytes # (Manual) D-Dimer 239.48 H Heparin Anti-Xa Level POC ABG pH POC ABG pCO2 POC ABG pO2 Sodium Potassium Chloride Carbon Dioxide BUN Creatinine Glucose POC Glucose 126 H 171 H Hemoglobin A1c Lactic Acid Calcium Phosphorus AST ALT Total Creatine Kinase C-Reactive Protein Total Protein Albumin Urine WBC (Auto) Urine Creatinine Crossmatch 05/24/16 05/24/16 05/24/16 08:08 08:08 08:19 WBC RBC 3.24 L Hgb 9.6 L Hct 28.6 L RDW 15.7 H Plt Count Seg Neuts % (Manual) 71.0 H Lymphocytes % (Manual) 7.0 L Nucleated RBC % Seg Neutrophils # Man Lymphocytes # (Manual) 0.8 L Monocytes # (Manual) D-Dimer Heparin Anti-Xa Level POC ABG pH POC ABG pCO2 POC ABG pO2 Sodium 132 L Potassium Chloride 93.9 L Carbon Dioxide 18 L BUN 39 H Creatinine Glucose 166 H POC Glucose 173 H Hemoglobin A1c Lactic Acid Calcium Phosphorus AST ALT Total Creatine Kinase C-Reactive Protein Total Protein Albumin Urine WBC (Auto) Urine Creatinine Crossmatch 05/24/16 05/24/16 05/24/16 11:55 17:15 22:18 WBC RBC Hgb Hct RDW Plt Count Seg Neuts % (Manual) Lymphocytes % (Manual) Nucleated RBC % Seg Neutrophils # Man Lymphocytes # (Manual) Monocytes # (Manual) D-Dimer Heparin Anti-Xa Level POC ABG pH POC ABG pCO2 POC ABG pO2 Sodium Potassium Chloride Carbon Dioxide BUN Creatinine Glucose POC Glucose 210 H 147 H 163 H Hemoglobin A1c Lactic Acid Calcium Phosphorus AST ALT Total Creatine Kinase C-Reactive Protein Total Protein Albumin Urine WBC (Auto) Urine Creatinine Crossmatch 05/25/16 05/25/16 05/25/16 08:43 13:38 14:19 WBC RBC Hgb 10.0 L Hct 30.4 L RDW Plt Count Seg Neuts % (Manual) Lymphocytes % (Manual) Nucleated RBC % Seg Neutrophils # Man Lymphocytes # (Manual) Monocytes # (Manual) D-Dimer Heparin Anti-Xa Level POC ABG pH POC ABG pCO2 POC ABG pO2 Sodium Potassium Chloride Carbon Dioxide BUN Creatinine Glucose POC Glucose 177 H 180 H Hemoglobin A1c Lactic Acid Calcium Phosphorus AST ALT Total Creatine Kinase C-Reactive Protein Total Protein Albumin Urine WBC (Auto) Urine Creatinine Crossmatch 05/25/16 05/25/16 05/25/16 16:16 16:25 21:32 WBC RBC Hgb Hct RDW Plt Count Seg Neuts % (Manual) Lymphocytes % (Manual) Nucleated RBC % Seg Neutrophils # Man Lymphocytes # (Manual) Monocytes # (Manual) D-Dimer Heparin Anti-Xa Level POC ABG pH POC ABG pCO2 34.3 L POC ABG pO2 114 H Sodium Potassium Chloride Carbon Dioxide BUN Creatinine Glucose POC Glucose 193 H 183 H Hemoglobin A1c Lactic Acid Calcium Phosphorus AST ALT Total Creatine Kinase C-Reactive Protein Total Protein Albumin Urine WBC (Auto) Urine Creatinine Crossmatch 05/26/16 05/26/16 05/26/16 00:06 07:42 10:17 WBC RBC Hgb Hct RDW Plt Count Seg Neuts % (Manual) Lymphocytes % (Manual) Nucleated RBC % Seg Neutrophils # Man Lymphocytes # (Manual) Monocytes # (Manual) D-Dimer Heparin Anti-Xa Level 1.23 H 0.98 H POC ABG pH POC ABG pCO2 POC ABG pO2 Sodium Potassium Chloride Carbon Dioxide BUN Creatinine Glucose POC Glucose 206 H Hemoglobin A1c Lactic Acid Calcium Phosphorus AST ALT Total Creatine Kinase C-Reactive Protein Total Protein Albumin Urine WBC (Auto) Urine Creatinine Crossmatch 05/26/16 05/26/16 05/26/16 11:57 12:38 13:52 WBC 19.7 H RBC 2.56 L Hgb 7.4 L Hct 23.2 L D RDW 15.8 H Plt Count Seg Neuts % (Manual) Lymphocytes % (Manual) Nucleated RBC % Seg Neutrophils # Man Lymphocytes # (Manual) Monocytes # (Manual) D-Dimer Heparin Anti-Xa Level POC ABG pH 7.298 L POC ABG pCO2 27.8 L POC ABG pO2 132 H Sodium Potassium Chloride Carbon Dioxide BUN Creatinine Glucose POC Glucose 338 H Hemoglobin A1c Lactic Acid Calcium Phosphorus AST ALT Total Creatine Kinase C-Reactive Protein Total Protein Albumin Urine WBC (Auto) Urine Creatinine Crossmatch 05/26/16 05/26/16 05/26/16 15:47 15:47 17:06 WBC RBC Hgb Hct RDW Plt Count Seg Neuts % (Manual) Lymphocytes % (Manual) Nucleated RBC % Seg Neutrophils # Man Lymphocytes # (Manual) Monocytes # (Manual) D-Dimer Heparin Anti-Xa Level 1.35 H POC ABG pH 7.108 L POC ABG pCO2 POC ABG pO2 287 H Sodium Potassium Chloride Carbon Dioxide BUN Creatinine Glucose POC Glucose Hemoglobin A1c Lactic Acid 9.0 H* Calcium Phosphorus AST ALT Total Creatine Kinase C-Reactive Protein Total Protein Albumin Urine WBC (Auto) Urine Creatinine Crossmatch 05/26/16 05/26/16 05/26/16 17:12 17:15 17:53 WBC RBC Hgb Hct RDW Plt Count Seg Neuts % (Manual) Lymphocytes % (Manual) Nucleated RBC % Seg Neutrophils # Man Lymphocytes # (Manual) Monocytes # (Manual) D-Dimer Heparin Anti-Xa Level POC ABG pH 7.061 L POC ABG pCO2 47.3 H POC ABG pO2 35 L Sodium Potassium Chloride Carbon Dioxide BUN Creatinine Glucose POC Glucose 275 H Hemoglobin A1c Lactic Acid Calcium Phosphorus AST ALT Total Creatine Kinase C-Reactive Protein Total Protein Albumin Urine WBC (Auto) Urine Creatinine Crossmatch See Detail 05/26/16 05/26/16 05/26/16 17:53 22:08 23:00 WBC RBC Hgb 6.7 L Hct 22.3 L RDW Plt Count Seg Neuts % (Manual) Lymphocytes % (Manual) Nucleated RBC % Seg Neutrophils # Man Lymphocytes # (Manual) Monocytes # (Manual) D-Dimer Heparin Anti-Xa Level POC ABG pH 7.195 L POC ABG pCO2 POC ABG pO2 129 H Sodium Potassium Chloride Carbon Dioxide BUN Creatinine Glucose POC Glucose 250 H Hemoglobin A1c Lactic Acid Calcium Phosphorus AST ALT Total Creatine Kinase C-Reactive Protein Total Protein Albumin Urine WBC (Auto) Urine Creatinine Crossmatch 05/27/16 05/27/16 05/27/16 00:26 01:00 05:13 WBC RBC Hgb 8.0 L Hct 24.6 L RDW Plt Count Seg Neuts % (Manual) Lymphocytes % (Manual) Nucleated RBC % Seg Neutrophils # Man Lymphocytes # (Manual) Monocytes # (Manual) D-Dimer Heparin Anti-Xa Level POC ABG pH 7.273 L POC ABG pCO2 POC ABG pO2 62 L Sodium Potassium Chloride Carbon Dioxide BUN Creatinine Glucose POC Glucose Hemoglobin A1c Lactic Acid Calcium Phosphorus AST ALT Total Creatine Kinase C-Reactive Protein Total Protein Albumin Urine WBC (Auto) Urine Creatinine Crossmatch 05/27/16 05/27/16 05/27/16 05:50 05:50 07:54 WBC RBC Hgb 7.6 L Hct 23.1 L RDW Plt Count Seg Neuts % (Manual) Lymphocytes % (Manual) Nucleated RBC % Seg Neutrophils # Man Lymphocytes # (Manual) Monocytes # (Manual) D-Dimer Heparin Anti-Xa Level POC ABG pH POC ABG pCO2 POC ABG pO2 Sodium Potassium Chloride Carbon Dioxide BUN Creatinine Glucose POC Glucose 385 H Hemoglobin A1c Lactic Acid 4.0 H* Calcium Phosphorus AST ALT Total Creatine Kinase C-Reactive Protein Total Protein Albumin Urine WBC (Auto) Urine Creatinine Crossmatch 05/27/16 05/27/1617 08:30 11:57 16:04 WBC RBC Hgb Hct RDW Plt Count Seg Neuts % (Manual) Lymphocytes % (Manual) Nucleated RBC % Seg Neutrophils # Man Lymphocytes # (Manual) Monocytes # (Manual) D-Dimer Heparin Anti-Xa Level POC ABG pH POC ABG pCO2 POC ABG pO2 Sodium Potassium Chloride 94.8 L Carbon Dioxide BUN 61 H Creatinine 2.9 H D Glucose 411 H POC Glucose 394 H 292 H Hemoglobin A1c Lactic Acid Calcium 6.3 L D Phosphorus AST 7200 H ALT 4300 H Total Creatine Kinase C-Reactive Protein Total Protein 4.5 L D Albumin 3.0 L Urine WBC (Auto) Urine Creatinine Crossmatch 05/27/16 05/27/16 05/27/16 17:15 18:00 18:25 WBC RBC Hgb 7.5 L Hct 22.5 L RDW Plt Count Seg Neuts % (Manual) Lymphocytes % (Manual) Nucleated RBC % Seg Neutrophils # Man Lymphocytes # (Manual) Monocytes # (Manual) D-Dimer Heparin Anti-Xa Level POC ABG pH POC ABG pCO2 POC ABG pO2 Sodium Potassium Chloride Carbon Dioxide BUN Creatinine Glucose POC Glucose Hemoglobin A1c Lactic Acid Calcium Phosphorus AST 8515 H ALT 4517 H Total Creatine Kinase C-Reactive Protein Total Protein 4.6 L Albumin 2.8 L Urine WBC (Auto) Urine Creatinine 69.9 H Crossmatch 05/27/16 05/28/16 05/28/16 21:44 04:50 04:50 WBC 19.9 H RBC 2.66 L Hgb 7.6 L Hct 23.3 L RDW 15.4 H Plt Count 101 L Seg Neuts % (Manual) Lymphocytes % (Manual) Nucleated RBC % Seg Neutrophils # Man Lymphocytes # (Manual) Monocytes # (Manual) D-Dimer Heparin Anti-Xa Level POC ABG pH POC ABG pCO2 POC ABG pO2 Sodium Potassium Chloride Carbon Dioxide BUN 79 H Creatinine 3.9 H Glucose 166 H POC Glucose 176 H Hemoglobin A1c Lactic Acid Calcium 6.3 L Phosphorus AST 5609 H ALT 4060 H Total Creatine Kinase 929 H C-Reactive Protein Total Protein 4.8 L Albumin 2.9 L Urine WBC (Auto) Urine Creatinine Crossmatch 05/28/16 05/28/16 05/28/16 05:17 07:38 12:41 WBC RBC Hgb Hct RDW Plt Count Seg Neuts % (Manual) Lymphocytes % (Manual) Nucleated RBC % Seg Neutrophils # Man Lymphocytes # (Manual) Monocytes # (Manual) D-Dimer Heparin Anti-Xa Level POC ABG pH POC ABG pCO2 POC ABG pO2 115 H Sodium Potassium Chloride Carbon Dioxide BUN Creatinine Glucose POC Glucose 168 H 173 H Hemoglobin A1c Lactic Acid Calcium Phosphorus AST ALT Total Creatine Kinase C-Reactive Protein Total Protein Albumin Urine WBC (Auto) Urine Creatinine Crossmatch 05/28/16 05/28/16 05/29/16 16:12 21:45 04:15 WBC RBC Hgb Hct RDW Plt Count 71 L Seg Neuts % (Manual) Lymphocytes % (Manual) Nucleated RBC % Seg Neutrophils # Man Lymphocytes # (Manual) Monocytes # (Manual) D-Dimer Heparin Anti-Xa Level POC ABG pH POC ABG pCO2 POC ABG pO2 Sodium Potassium Chloride Carbon Dioxide BUN Creatinine Glucose POC Glucose 210 H 221 H Hemoglobin A1c Lactic Acid Calcium Phosphorus AST ALT Total Creatine Kinase C-Reactive Protein Total Protein Albumin Urine WBC (Auto) Urine Creatinine Crossmatch 05/29/16 05/29/16 05/29/16 04:15 06:14 07:28 WBC RBC Hgb Hct RDW Plt Count Seg Neuts % (Manual) Lymphocytes % (Manual) Nucleated RBC % Seg Neutrophils # Man Lymphocytes # (Manual) Monocytes # (Manual) D-Dimer Heparin Anti-Xa Level POC ABG pH 7.285 L POC ABG pCO2 POC ABG pO2 63 L Sodium Potassium Chloride Carbon Dioxide 21 L BUN 98 H Creatinine 4.7 H Glucose 220 H POC Glucose 232 H Hemoglobin A1c Lactic Acid Calcium 5.8 L* Phosphorus AST 1464 H ALT 2628 H Total Creatine Kinase 792 H C-Reactive Protein Total Protein 4.5 L Albumin 2.8 L Urine WBC (Auto) Urine Creatinine Crossmatch 05/29/16 05/29/16 05/29/16 11:33 11:58 15:22 WBC RBC Hgb Hct RDW Plt Count Seg Neuts % (Manual) Lymphocytes % (Manual) Nucleated RBC % Seg Neutrophils # Man Lymphocytes # (Manual) Monocytes # (Manual) D-Dimer Heparin Anti-Xa Level POC ABG pH 7.291 L POC ABG pCO2 45.3 H POC ABG pO2 Sodium Potassium Chloride Carbon Dioxide BUN Creatinine Glucose POC Glucose 196 H 184 H Hemoglobin A1c Lactic Acid Calcium Phosphorus AST ALT Total Creatine Kinase C-Reactive Protein Total Protein Albumin Urine WBC (Auto) Urine Creatinine Crossmatch 05/29/16 05/30/16 05/30/16 22:16 04:53 05:30 WBC RBC Hgb Hct RDW Plt Count Seg Neuts % (Manual) Lymphocytes % (Manual) Nucleated RBC % Seg Neutrophils # Man Lymphocytes # (Manual) Monocytes # (Manual) D-Dimer Heparin Anti-Xa Level POC ABG pH 7.303 L POC ABG pCO2 POC ABG pO2 Sodium Potassium 5.5 H Chloride Carbon Dioxide BUN 113 H Creatinine 5.3 H Glucose 240 H POC Glucose 274 H Hemoglobin A1c Lactic Acid Calcium 5.5 L* Phosphorus 6.6 H AST 380 H ALT 1647 H Total Creatine Kinase 2131 H C-Reactive Protein Total Protein 4.4 L Albumin 2.8 L Urine WBC (Auto) Urine Creatinine Crossmatch 05/30/16 05/30/16 05/30/16 05:30 06:01 08:25 WBC 15.4 H RBC 2.45 L Hgb 7.0 L Hct 22.0 L RDW 16.1 H Plt Count 51 L Seg Neuts % (Manual) Lymphocytes % (Manual) 9.0 L Nucleated RBC % 7.0 H Seg Neutrophils # Man 8.5 H Lymphocytes # (Manual) Monocytes # (Manual) D-Dimer Heparin Anti-Xa Level POC ABG pH POC ABG pCO2 POC ABG pO2 Sodium Potassium Chloride Carbon Dioxide BUN Creatinine Glucose POC Glucose 268 H Hemoglobin A1c Lactic Acid Calcium Phosphorus AST ALT Total Creatine Kinase C-Reactive Protein Total Protein Albumin Urine WBC (Auto) Urine Creatinine Crossmatch See Detail 05/30/16 05/30/16 05/30/16 12:04 18:54 22:23 WBC RBC Hgb Hct RDW Plt Count Seg Neuts % (Manual) Lymphocytes % (Manual) Nucleated RBC % Seg Neutrophils # Man Lymphocytes # (Manual) Monocytes # (Manual) D-Dimer Heparin Anti-Xa Level POC ABG pH POC ABG pCO2 POC ABG pO2 Sodium Potassium Chloride Carbon Dioxide BUN Creatinine Glucose POC Glucose 251 H 210 H 199 H Hemoglobin A1c Lactic Acid Calcium Phosphorus AST ALT Total Creatine Kinase C-Reactive Protein Total Protein Albumin Urine WBC (Auto) Urine Creatinine Crossmatch 05/31/16 05/31/16 05/31/16 05:50 05:50 06:19 WBC 22.0 H RBC 3.61 L Hgb 10.3 L D Hct 31.9 L D RDW 15.6 H Plt Count 42 L Seg Neuts % (Manual) Lymphocytes % (Manual) Nucleated RBC % Seg Neutrophils # Man Lymphocytes # (Manual) Monocytes # (Manual) D-Dimer Heparin Anti-Xa Level POC ABG pH 7.320 L POC ABG pCO2 45.2 H POC ABG pO2 Sodium 134 L Potassium 5.1 H Chloride 97.0 L Carbon Dioxide BUN 77 H Creatinine 3.6 H Glucose 225 H POC Glucose Hemoglobin A1c Lactic Acid Calcium 6.0 L Phosphorus AST 133 H ALT 1165 H Total Creatine Kinase 1486 H C-Reactive Protein Total Protein 4.5 L Albumin 2.7 L Urine WBC (Auto) Urine Creatinine Crossmatch 05/31/16 05/31/16 05/31/16 07:42 12:13 12:34 WBC RBC Hgb Hct RDW Plt Count Seg Neuts % (Manual) Lymphocytes % (Manual) Nucleated RBC % Seg Neutrophils # Man Lymphocytes # (Manual) Monocytes # (Manual) D-Dimer Heparin Anti-Xa Level POC ABG pH 7.298 L POC ABG pCO2 POC ABG pO2 Sodium Potassium Chloride Carbon Dioxide BUN Creatinine Glucose POC Glucose 250 H 209 H Hemoglobin A1c Lactic Acid Calcium Phosphorus AST ALT Total Creatine Kinase C-Reactive Protein Total Protein Albumin Urine WBC (Auto) Urine Creatinine Crossmatch 05/31/16 05/31/16 05/31/16 13:45 17:43 21:38 WBC RBC Hgb Hct RDW Plt Count Seg Neuts % (Manual) Lymphocytes % (Manual) Nucleated RBC % Seg Neutrophils # Man Lymphocytes # (Manual) Monocytes # (Manual) D-Dimer Heparin Anti-Xa Level POC ABG pH POC ABG pCO2 POC ABG pO2 Sodium Potassium Chloride Carbon Dioxide BUN Creatinine Glucose POC Glucose 242 H 248 H Hemoglobin A1c Lactic Acid Calcium Phosphorus AST ALT Total Creatine Kinase C-Reactive Protein 4.10 H Total Protein Albumin Urine WBC (Auto) Urine Creatinine Crossmatch 06/01/16 06/01/16 06/01/16 03:35 03:35 04:16 WBC 28.8 H RBC 3.51 L Hgb 10.0 L Hct 31.2 L RDW 15.3 H Plt Count 42 L Seg Neuts % (Manual) 74.0 H Lymphocytes % (Manual) 3.0 L Nucleated RBC % 2.0 H Seg Neutrophils # Man 21.3 H Lymphocytes # (Manual) 0.9 L Monocytes # (Manual) 1.7 H D-Dimer Heparin Anti-Xa Level POC ABG pH 7.332 L POC ABG pCO2 POC ABG pO2 56 L Sodium Potassium Chloride Carbon Dioxide 21 L BUN 97 H Creatinine 3.9 H Glucose 206 H POC Glucose Hemoglobin A1c Lactic Acid Calcium 5.4 L* Phosphorus AST 70 H ALT 732 H Total Creatine Kinase C-Reactive Protein Total Protein 4.3 L Albumin 2.4 L Urine WBC (Auto) Urine Creatinine Crossmatch 06/01/16 06/01/16 06/01/16 07:31 11:38 15:23 WBC RBC Hgb Hct RDW Plt Count Seg Neuts % (Manual) Lymphocytes % (Manual) Nucleated RBC % Seg Neutrophils # Man Lymphocytes # (Manual) Monocytes # (Manual) D-Dimer Heparin Anti-Xa Level POC ABG pH POC ABG pCO2 POC ABG pO2 Sodium Potassium Chloride Carbon Dioxide BUN Creatinine Glucose POC Glucose 232 H 230 H 239 H Hemoglobin A1c Lactic Acid Calcium Phosphorus AST ALT Total Creatine Kinase C-Reactive Protein Total Protein Albumin Urine WBC (Auto) Urine Creatinine Crossmatch 06/01/16 06/02/16 06/02/16 17:15 00:32 03:17 WBC RBC Hgb Hct RDW Plt Count Seg Neuts % (Manual) Lymphocytes % (Manual) Nucleated RBC % Seg Neutrophils # Man Lymphocytes # (Manual) Monocytes # (Manual) D-Dimer Heparin Anti-Xa Level POC ABG pH 7.341 L POC ABG pCO2 POC ABG pO2 Sodium Potassium Chloride Carbon Dioxide BUN Creatinine Glucose POC Glucose 256 H Hemoglobin A1c Lactic Acid Calcium Phosphorus AST ALT Total Creatine Kinase C-Reactive Protein Total Protein Albumin Urine WBC (Auto) 63.0 H Urine Creatinine Crossmatch 06/02/16 06/02/16 06/02/16 04:00 04:00 07:51 WBC 37.1 H RBC 3.18 L Hgb 9.2 L Hct 28.5 L RDW Plt Count 49 L Seg Neuts % (Manual) Lymphocytes % (Manual) Nucleated RBC % Seg Neutrophils # Man Lymphocytes # (Manual) Monocytes # (Manual) D-Dimer Heparin Anti-Xa Level POC ABG pH POC ABG pCO2 POC ABG pO2 Sodium Potassium Chloride Carbon Dioxide BUN 124 H Creatinine 5.0 H Glucose 242 H POC Glucose 245 H Hemoglobin A1c Lactic Acid Calcium 5.3 L* Phosphorus AST 50 H ALT 458 H Total Creatine Kinase C-Reactive Protein Total Protein 4.1 L Albumin 2.3 L Urine WBC (Auto) Urine Creatinine Crossmatch 06/02/16 06/02/16 06/02/16 11:41 16:10 23:57 WBC RBC Hgb Hct RDW Plt Count Seg Neuts % (Manual) Lymphocytes % (Manual) Nucleated RBC % Seg Neutrophils # Man Lymphocytes # (Manual) Monocytes # (Manual) D-Dimer Heparin Anti-Xa Level POC ABG pH POC ABG pCO2 POC ABG pO2 Sodium Potassium Chloride Carbon Dioxide BUN Creatinine Glucose POC Glucose 254 H 215 H 162 H Hemoglobin A1c Lactic Acid Calcium Phosphorus AST ALT Total Creatine Kinase C-Reactive Protein Total Protein Albumin Urine WBC (Auto) Urine Creatinine Crossmatch 06/03/16 06/03/16 04:50 04:50 WBC 37.6 H RBC 2.72 L Hgb 7.8 L Hct 24.5 L RDW Plt Count 48 L Seg Neuts % (Manual) 96.0 H Lymphocytes % (Manual) 1.5 L Nucleated RBC % Seg Neutrophils # Man 36.1 H Lymphocytes # (Manual) 0.6 L Monocytes # (Manual) D-Dimer Heparin Anti-Xa Level POC ABG pH POC ABG pCO2 POC ABG pO2 Sodium Potassium Chloride Carbon Dioxide BUN 76 H Creatinine 3.5 H Glucose POC Glucose Hemoglobin A1c Lactic Acid Calcium 5.2 L* Phosphorus AST ALT 307 H Total Creatine Kinase C-Reactive Protein Total Protein 4.0 L Albumin 2.3 L Urine WBC (Auto) Urine Creatinine Crossmatch Chest x-ray: image reviewed
[2016-06-03 13:13] LABS: ISTAT Base Excess -3; ISTAT HCO3 22.3; ISTAT PCO2 38.4 (35-45); ISTAT PH 7.373 (7.35-7.45); ISTAT PO2 90 (80-105); ISTAT SO2 97; ISTAT TCO2 23
--- NOTE | 2016-06-03 13:32 | Progress Note ---
Assessment and Plan Pt status quo. Abd exam unchanged. soft on expiration. no tenderness elicited labs as below. lowering of h/h low ptl rec prbc transf hematology eval awaiting CT of abd Selected Entries 06/03/16 12:00 Pulse Rate 135 H Respiratory 15 Rate Blood Pressure 130/62 Laboratory Tests 06/03/16 04:50 WBC 37.6 H Hgb 7.8 L Hct 24.5 L Plt Count 48 L Objective Vital Signs - 12hr 06/03/16 06/03/16 06/03/16 01:45 01:47 02:00 Temperature Pulse Rate 122 H 120 H 124 H Pulse Rate [ Anterior Bilateral Throughout] Pulse Rate [ From Monitor] Respiratory 18 16 16 Rate Respiratory Rate [Anterior Bilateral Throughout] Blood Pressure 102/56 102/56 98/55 O2 Sat by Pulse 99 98 98 Oximetry 06/03/16 06/03/16 06/03/16 02:15 02:30 02:40 Temperature Pulse Rate 116 H 120 H Pulse Rate [ 118 H Anterior Bilateral Throughout] Pulse Rate [ From Monitor] Respiratory 13 16 Rate Respiratory 19 Rate [Anterior Bilateral Throughout] Blood Pressure 91/46 110/53 O2 Sat by Pulse 99 99 Oximetry 06/03/16 06/03/16 06/03/16 02:45 02:49 03:00 Temperature Pulse Rate 117 H 119 H Pulse Rate [ 121 H Anterior Bilateral Throughout] Pulse Rate [ From Monitor] Respiratory 17 18 Rate Respiratory 17 Rate [Anterior Bilateral Throughout] Blood Pressure 123/54 120/51 O2 Sat by Pulse 100 99 Oximetry 06/03/16 06/03/16 06/03/16 03:15 03:30 03:45 Temperature Pulse Rate 118 H 121 H 113 H Pulse Rate [ Anterior Bilateral Throughout] Pulse Rate [ From Monitor] Respiratory 15 16 14 Rate Respiratory Rate [Anterior Bilateral Throughout] Blood Pressure 114/54 121/56 122/47 O2 Sat by Pulse 99 98 99 Oximetry 06/03/16 06/03/16 06/03/16 04:00 04:15 04:26 Temperature 100.5 F H Pulse Rate 120 H 117 H 119 H Pulse Rate [ Anterior Bilateral Throughout] Pulse Rate [ From Monitor] Respiratory 16 12 Rate Respiratory Rate [Anterior Bilateral Throughout] Blood Pressure 113/49 121/50 117/53 O2 Sat by Pulse 97 98 98 Oximetry 06/03/16 06/03/16 06/03/16 04:30 04:45 05:00 Temperature Pulse Rate 120 H 120 H 117 H Pulse Rate [ Anterior Bilateral Throughout] Pulse Rate [ From Monitor] Respiratory 16 15 Rate Respiratory Rate [Anterior Bilateral Throughout] Blood Pressure 117/53 121/54 O2 Sat by Pulse 99 98 Oximetry 06/03/16 06/03/16 06/03/16 05:01 05:12 05:15 Temperature Pulse Rate 120 H 123 H 121 H Pulse Rate [ Anterior Bilateral Throughout] Pulse Rate [ From Monitor] Respiratory 16 15 16 Rate Respiratory Rate [Anterior Bilateral Throughout] Blood Pressure 132/52 132/52 144/54 O2 Sat by Pulse 98 98 98 Oximetry 06/03/16 06/03/16 06/03/16 05:23 05:31 05:45 Temperature Pulse Rate 117 H 118 H 121 H Pulse Rate [ Anterior Bilateral Throughout] Pulse Rate [ From Monitor] Respiratory 21 14 18 Rate Respiratory Rate [Anterior Bilateral Throughout] Blood Pressure 132/52 110/54 120/56 O2 Sat by Pulse 98 98 98 Oximetry 06/03/16 06/03/16 06/03/16 06:00 06:05 06:15 Temperature Pulse Rate 120 H 123 H 120 H Pulse Rate [ Anterior Bilateral Throughout] Pulse Rate [ From Monitor] Respiratory 14 15 15 Rate Respiratory Rate [Anterior Bilateral Throughout] Blood Pressure 131/57 131/57 119/57 O2 Sat by Pulse 98 98 99 Oximetry 06/03/16 06/03/16 06/03/16 06:30 06:45 07:00 Temperature Pulse Rate 120 H 125 H 122 H Pulse Rate [ Anterior Bilateral Throughout] Pulse Rate [ From Monitor] Respiratory 13 13 15 Rate Respiratory Rate [Anterior Bilateral Throughout] Blood Pressure 118/55 109/57 102/54 O2 Sat by Pulse 98 98 98 Oximetry 06/03/16 06/03/16 06/03/16 07:15 07:30 07:45 Temperature Pulse Rate 124 H 124 H 126 H Pulse Rate [ Anterior Bilateral Throughout] Pulse Rate [ From Monitor] Respiratory 20 20 17 Rate Respiratory Rate [Anterior Bilateral Throughout] Blood Pressure 118/65 108/41 122/47 O2 Sat by Pulse 98 98 97 Oximetry 06/03/16 06/03/16 06/03/16 08:00 08:15 08:30 Temperature 99.6 F Pulse Rate 133 H 135 H 131 H Pulse Rate [ Anterior Bilateral Throughout] Pulse Rate [ 132 H From Monitor] Respiratory 15 14 14 Rate Respiratory Rate [Anterior Bilateral Throughout] Blood Pressure 111/51 115/60 112/60 O2 Sat by Pulse 97 98 98 Oximetry 06/03/16 06/03/16 06/03/16 08:31 08:38 08:45 Temperature Pulse Rate 131 H 129 H Pulse Rate [ 132 H Anterior Bilateral Throughout] Pulse Rate [ From Monitor] Respiratory 25 H Rate Respiratory 18 Rate [Anterior Bilateral Throughout] Blood Pressure 112/60 106/52 O2 Sat by Pulse 98 100 Oximetry 06/03/16 06/03/16 06/03/16 09:00 09:15 09:30 Temperature Pulse Rate 128 H 120 H 133 H Pulse Rate [ Anterior Bilateral Throughout] Pulse Rate [ From Monitor] Respiratory 25 H 25 H 23 Rate Respiratory Rate [Anterior Bilateral Throughout] Blood Pressure 104/45 109/53 104/59 O2 Sat by Pulse 100 100 100 Oximetry 06/03/16 06/03/16 06/03/16 09:45 10:00 10:15 Temperature Pulse Rate 135 H 134 H 134 H Pulse Rate [ Anterior Bilateral Throughout] Pulse Rate [ From Monitor] Respiratory 23 22 16 Rate Respiratory Rate [Anterior Bilateral Throughout] Blood Pressure 120/63 117/56 108/42 O2 Sat by Pulse 100 100 100 Oximetry 06/03/16 06/03/16 06/03/16 10:30 10:45 11:01 Temperature Pulse Rate 131 H 133 H 137 H Pulse Rate [ Anterior Bilateral Throughout] Pulse Rate [ From Monitor] Respiratory 25 H 22 11 L Rate Respiratory Rate [Anterior Bilateral Throughout] Blood Pressure 106/47 110/53 107/56 O2 Sat by Pulse 100 100 100 Oximetry 06/03/16 06/03/16 06/03/16 11:15 11:22 11:30 Temperature Pulse Rate 135 H 135 H 132 H Pulse Rate [ Anterior Bilateral Throughout] Pulse Rate [ From Monitor] Respiratory 22 14 22 Rate Respiratory Rate [Anterior Bilateral Throughout] Blood Pressure 123/65 123/65 129/60 O2 Sat by Pulse 100 100 100 Oximetry 06/03/16 06/03/16 06/03/16 11:31 11:45 11:49 Temperature Pulse Rate 128 H 125 H 124 H Pulse Rate [ Anterior Bilateral Throughout] Pulse Rate [ From Monitor] Respiratory 18 15 11 L Rate Respiratory Rate [Anterior Bilateral Throughout] Blood Pressure 129/60 122/54 122/54 O2 Sat by Pulse 100 98 99 Oximetry 06/03/16 12:00 Temperature Pulse Rate 135 H Pulse Rate [ Anterior Bilateral Throughout] Pulse Rate [ From Monitor] Respiratory 15 Rate Respiratory Rate [Anterior Bilateral Throughout] Blood Pressure 130/62 O2 Sat by Pulse 99 Oximetry - Labs 06/03/16 04:50 06/03/16 04:50 Diabetes panel 06/03/16 Range/Units 04:50 Sodium 144 (137-145) mmol/L Potassium 4.8 (3.6-5.0) mmol/L Chloride 105.8 (98-107) mmol/L Carbon Dioxide 23 (22-30) mmol/L BUN 76 H (9-20) mg/dL Creatinine 3.5 H (0.8-1.5) mg/dL Glucose 84 (75-100) mg/dL Calcium 5.2 L* (8.4-10.2) mg/dL AST 39 (5-40) units/L ALT 307 H (7-56) units/L Alkaline Phosphatase 76 (35-129) units/L Total Protein 4.0 L (6.3-8.2) g/dL Albumin 2.3 L (3.9-5) g/dL Calcium panel 06/03/16 Range/Units 04:50 Calcium 5.2 L* (8.4-10.2) mg/dL Albumin 2.3 L (3.9-5) g/dL Pituitary panel 06/03/16 Range/Units 04:50 Sodium 144 (137-145) mmol/L Potassium 4.8 (3.6-5.0) mmol/L Chloride 105.8 (98-107) mmol/L Carbon Dioxide 23 (22-30) mmol/L BUN 76 H (9-20) mg/dL Creatinine 3.5 H (0.8-1.5) mg/dL Glucose 84 (75-100) mg/dL Calcium 5.2 L* (8.4-10.2) mg/dL Adrenal panel 06/03/16 Range/Units 04:50 Sodium 144 (137-145) mmol/L Potassium 4.8 (3.6-5.0) mmol/L Chloride 105.8 (98-107) mmol/L Carbon Dioxide 23 (22-30) mmol/L BUN 76 H (9-20) mg/dL Creatinine 3.5 H (0.8-1.5) mg/dL Glucose 84 (75-100) mg/dL Calcium 5.2 L* (8.4-10.2) mg/dL Total Bilirubin 0.3 (0.1-1.2) mg/dL AST 39 (5-40) units/L ALT 307 H (7-56) units/L Alkaline Phosphatase 76 (35-129) units/L Total Protein 4.0 L (6.3-8.2) g/dL Albumin 2.3 L (3.9-5) g/dL
[2016-06-03] MEDS: DIFLUCAN 100 ML IV SCH (14:28)
[2016-06-03] MEDS: fentaNYL DRIP Premix 100 ML IV SCH (14:35)
--- NOTE | 2016-06-03 17:53 | Consultation ---
History of Present Illness - Reason for Consult Consult date: 06/03/16 Thrombocytopenia - History of Present Illness Mr Hansen is an 80-year-old male admitted on May 22 2016 with progressive shortness of breath due to COPD exacerbation. He developed sepsis that progressed to septic shock and MODS. Currently on pressors, ventilator, renal failure on dialysis, AMS, and apparent ileus/SBO. He had baseline stage 3 CKD, and had to start HD on May 29. We were asked to see him due to thrombocytopenia. He had a platelet count of 272 on admission; dropped to 171 on May 27, 101 by May 28, and has been in the 40-50 range since May 30. Today' s count is 48. He also came in with normocytic anemia, Hgb 9.5 g/dL, dropped to 6.7 g/dL on May 26, was transfused up to Hgb 10.3 g/dL by May 31, since then Hgb gradually dropping to current value of 8.3 g/dL. Developed very high LFTs and lactic acidosis on May 27, since then gradually dropping. Hepatitis serologies negative. One out of four blood cultures has grown GPC in clusters. Urine culture growing yeasts. He has been receiving Zosyn, vancomycin, metronidazole, and Diflucan. He has been first on prophylactic heparin and now on heparin for HD. He does not have evidence of active bleeding. Past History Past Medical History: COPD, diabetes, hypertension, hyperlipidemia, other ( obesity) Past Surgical History: Other (Cannot obtain, patient intubated) Social history: other (Cannot obtain, patient intubated) Family history: other (Cannot obtain, patient intubated) Medications and Allergies Allergies Allergy/AdvReac Type Severity Reaction Status Date / Time No Known Allergies Allergy Unverified 05/22/16 14:00 Home Medications Medication Instructions Recorded Confirmed Last Taken Type Albuterol Sulfate [Ventolin HFA] 2 puff IH Q4H PRN 05/22/16 05/22/16 05/21/16 History Alendronate Sodium [Fosamax] 70 mg PO QWEEK 05/22/16 05/22/16 05/21/16 History Aspirin [Aspirin TAB] 325 mg PO QDAY 05/22/16 05/22/16 05/21/16 History Diltiazem HCl [Diltiazem ER] 120 mg PO BID 05/22/16 05/22/16 05/21/16 History Ergocalciferol [Vitamin D2] 1 cap PO QWEEK 05/22/16 05/22/16 05/21/16 History Fluticasone [Flonase] 2 spray NS QDAY 05/22/16 05/22/16 05/21/16 History Fluticasone/Salmeterol [Advair 1 puff IH BID 05/22/16 05/22/16 05/21/16 History Diskus 500-50 mcg] Ipratropium/Albuterol Sulfate 1 ampul IH Q6HR PRN 05/22/16 05/22/16 05/21/16 History [Duoneb 0.5 mg-3 mg/3 ml Soln] Ketoconazole 2% [Nizoral] 1 applicatio TP QDAY 05/22/16 05/22/16 05/21/16 History Loratadine [Claritin] 10 mg PO DAILY 05/22/16 05/22/16 05/21/16 History Losartan [Cozaar] 50 mg PO QDAY 05/22/16 05/22/16 05/21/16 History Meclizine HCl [Meclizine CHEW] 25 mg PO QDAY PRN 05/22/16 05/22/16 05/21/16 History Montelukast [Singulair] 10 mg PO QPM 05/22/16 05/22/16 05/21/16 History Pravastatin Sodium [Pravastatin] 40 mg PO QHS 05/22/16 05/22/16 05/21/16 History Triamter/Hctz 37.5-25 mg 1 tab PO QDAY 05/22/16 05/22/16 05/21/16 History [Maxzide-25] metFORMIN [Glucophage] 500 mg PO BID 05/22/16 05/22/16 05/21/16 History Active Meds: Active Medications Acetaminophen (Tylenol) 650 mg PO Q4H PRN PRN Reason: Pain MILD(1-3)/Fever >100.5/PÉREZ Last Admin: 06/01/16 17:35 Dose: 650 mg Albumin Human (Alburx 25% (Albumin)) 25 gm IV RED PRN PRN Reason: Hypotension Albuterol (Proventil) 2.5 mg IH Q4HRT PRN PRN Reason: Shortness Of Breath Albuterol/Ipratropium (Duoneb 0.5 Mg-3 Mg/3 Ml Soln) 1 ampul IH Q6HRT ARLYN Last Admin: 06/03/16 15:42 Dose: 1 ampul Lipase/Protease/Amylase (Pancreaze Dr 10,500 Unit) 1 each FEEDTUBE PRN PRN PRN Reason: For Clogged Feeding Tube Bisacodyl (Dulcolax) 10 mg [place] QDAY PRN PRN Reason: Constipation unrelieved by MOM Budesonide (Pulmicort) 0.5 mg IH Q12HRT ARLYN Last Admin: 06/03/16 08:38 Dose: 0.5 mg Dextrose (D50w (25gm)) 50 ml IV PRN PRN PRN Reason: Hypoglycemia Epoetin Ld (Epogen) 20,000 unit IV RED PRN PRN Reason: hemoglobin Last Admin: 06/02/16 15:01 Dose: 20,000 unit Ergocalciferol (Vitamin D2) 50,000 unit PO Sa ARLYN Last Admin: 05/30/16 09:53 Dose: 50,000 unit Hydrophilic Ointment (Vaseline Lip Therapy) 1 applic TP Q2HR PRN PRN Reason: Dry Lips Fentanyl Citrate (Fentanyl Drip Premix) 100 mls @ 4.1 mls/hr IV TITR ARLYN; 1 MCG /KG/HR PRN Reason: Protocol Last Admin: 06/03/16 14:35 Dose: 4.1 mls/hr Midazolam HCl (Versed/Ns 100mg/100ml) 100 mls @ 1 mls/hr IV TITR ARLYN; 1 MG/HR PRN Reason: Protocol Last Admin: 06/01/16 18:42 Dose: 1 mls/hr Sodium Chloride (Nacl 0.9% 1000 Ml) 1,000 mls @ 75 mls/hr IV DIRECT ARLYN Last Admin: 06/03/16 00:35 Dose: 75 mls/hr Norepinephrine 8 mg/ Sodium (Chloride) 250 mls @ 3.75 mls/hr IV TITR ARLYN; 2 MCG /MIN PRN Reason: Protocol Last Titration: 06/03/16 17:00 Dose: 0 mcg/min Sodium Chloride (Nacl 0.9% 1000 Ml) 100 mls @ 999 mls/hr IV RED PRN PRN Reason: Hypotension Piperacillin Sod/Tazobactam Sod (Zosyn/Ns 2.25 Gm/50ml) 50 mls @ 100 mls/hr IV Q8HR COUNT INCLUDES THE [facility] Last Admin: 06/03/16 14:21 Dose: 100 mls/hr Metronidazole (Flagyl 500 Mg/100 Ml) 100 mls @ 100 mls/hr IV Q8HR COUNT INCLUDES THE [facility] Last Admin: 06/03/16 14:28 Dose: 100 mls/hr Sodium Chloride (Nacl 0.9% 1000 Ml) 100 mls @ 999 mls/hr IV RED PRN PRN Reason: Hypotension Fluconazole (Diflucan) 100 mls @ 100 mls/hr IV Q24HR ARLYN PRN Reason: Protocol Last Admin: 06/03/16 14:28 Dose: 100 mls/hr Sodium Chloride (Nacl 0.9% 500 Ml) 500 mls @ 0 mls/hr IV ONCE COUNT INCLUDES THE [facility] PRN Reason: As Directed Stop: 06/04/16 06:00 Insulin Aspart (Novolog) 0 units SUB-Q Q6HR COUNT INCLUDES THE [facility] PRN Reason: Protocol Last Admin: 06/03/16 12:07 Dose: Not Given Insulin Detemir (Levemir) 35 units SUB-Q DAILY COUNT INCLUDES THE [facility] Last Admin: 06/03/16 12:06 Dose: Not Given Magnesium Hydroxide (Milk Of Magnesia) 30 ml PO Q4H PRN PRN Reason: Constipation Methylprednisolone Sodium Succinate (Solu-Medrol) 60 mg IV Q8HR COUNT INCLUDES THE [facility] Last Admin: 06/03/16 14:21 Dose: 60 mg Montelukast Sodium (Singulair) 10 mg PO QPM COUNT INCLUDES THE [facility] Last Admin: 06/02/16 18:26 Dose: Not Given Multi-Ingred Cream/Lotion/Oil/Oint (Artificial Tears Ophth Oint) 1 applic OU Q4HR PRN PRN Reason: Dry Eye(s) Last Admin: 05/30/16 01:17 Dose: 1 applic Ondansetron HCl (Zofran) 4 mg IV Q8H PRN PRN Reason: N/V unrelieved by Reglan Pantoprazole Sodium (Protonix) 40 mg IV QDAY COUNT INCLUDES THE [facility] Last Admin: 06/03/16 10:36 Dose: 40 mg Simple Syrup (Simple Syrup) 15 ml FEEDTUBE PRN PRN PRN Reason: Hypoglycemia Simple Syrup (Simple Syrup) 30 ml FEEDTUBE PRN PRN PRN Reason: Hypoglycemia Simvastatin (Zocor) 20 mg PO QHS ARLYN Last Admin: 06/02/16 22:39 Dose: Not Given Sodium Bicarbonate (Sodium Bicarbonate) 325 mg FEEDTUBE PRN PRN PRN Reason: For Clogged Feeding Tube Sodium Chloride (Nacl 0.9% 500 Ml) 1 ml IV DIRECT ARLYN Vancomycin HCl (Vancomycin Pharmacy To Dose) 1 each IV PKCONSULT ARLYN PRN Reason: Protocol Review of Systems ROS unobtainable: due to endotracheal tube Exam - Constitutional Vitals: Temp Pulse Resp BP Pulse Ox 102.2 F H 135 H 24 134/66 98 06/03/16 16:46 06/03/16 17:15 06/03/16 17:15 06/03/16 17:15 06/03/16 17:15 General appearance: Present: mild distress, obese, other (orotracheal intubation , on vent) - EENT Eyes: Present: PERRL. Absent: scleral icterus - Neck Neck: Absent: enlarged thyroid, masses or JVD - Respiratory Respiratory effort: other (on ventilator) Respiratory: bilateral: diminished, other (coarse sounds) - Cardiovascular Rhythm: regular Heart Sounds: Present: S1 & S2. Absent: gallop - Extremities Extremity abnormal: edema - Peripheral Assessment Bilateral Lower Extremity Edema Type: Pitting Edema Degree: 2+ Skin Temperature: Warm - Abdominal General gastrointestinal: Present: soft, distended, absent bowel sounds. Absent : hepatomegaly, splenomegaly - Integumentary Integumentary: Present: warm, dry (petechia in BLE and in R forearm) - Musculoskeletal Musculoskeletal: other (4 point restraints) - Neurologic Neurologic: moves all extremities Results - Labs CBC & Chem 7: 06/03/16 19:30 06/03/16 04:50 Labs: Abnormal lab results 06/02/16 06/02/16 06/03/16 Range/Units 16:10 23:57 04:50 WBC 37.6 H (4.5-11.0) K/mm3 RBC 2.72 L (3.65-5.03) M/mm3 Hgb 7.8 L (11.8-15.2) gm/dl Hct 24.5 L (35.5-45.6) % Plt Count 48 L (140-440) K/mm3 Seg Neuts % (Manual) 96.0 H (40.0-70.0) % Lymphocytes % (Manual) 1.5 L (13.4-35.0) % Seg Neutrophils # Man 36.1 H (1.8-7.7) K/mm3 Lymphocytes # (Manual) 0.6 L (1.2-5.4) K/mm3 BUN (9-20) mg/dL Creatinine (0.8-1.5) mg/dL POC Glucose 215 H 162 H (70-105) Calcium (8.4-10.2) mg/dL ALT (7-56) units/L Total Protein (6.3-8.2) g/dL Albumin (3.9-5) g/dL Crossmatch 06/03/16 06/03/16 Range/Units 04:50 13:40 WBC (4.5-11.0) K/mm3 RBC (3.65-5.03) M/mm3 Hgb (11.8-15.2) gm/dl Hct (35.5-45.6) % Plt Count (140-440) K/mm3 Seg Neuts % (Manual) (40.0-70.0) % Lymphocytes % (Manual) (13.4-35.0) % Seg Neutrophils # Man (1.8-7.7) K/mm3 Lymphocytes # (Manual) (1.2-5.4) K/mm3 BUN 76 H (9-20) mg/dL Creatinine 3.5 H (0.8-1.5) mg/dL POC Glucose (70-105) Calcium 5.2 L* (8.4-10.2) mg/dL ALT 307 H (7-56) units/L Total Protein 4.0 L (6.3-8.2) g/dL Albumin 2.3 L (3.9-5) g/dL Crossmatch See Detail - Imaging and Cardiology Chest x-ray: report reviewed Abdominal x-ray: report reviewed Assessment and Plan - Patient Problems (1) Anemia Current Visit: Yes Status: Acute Qualifiers: Other causes of anemia: other cause, not classified Plan to address problem: Patient has anemia of CKD and is receiving Epogen. He has had acute loss of blood and has been transfused. Will get Fe, TIBC, ferritin, B12, folate and treat any deficiencies found. Transfuse PRBC prn Hgb <7.0 g/dL (2) Thrombocytopenia Current Visit: Yes Status: Acute Plan to address problem: Severe thrombocytopenia acquired during hospitalization, most likely multifactorial from sepsis, ?DIC, ?drugs (main suspects are vancomycin, heparin , and beta lactam). 4T score is 4 (odds of HIT 8-29%). Will stop heparin, check PT/PTT/fibrinogen, check blood smear. Consider D/C vancomycin. Monitor CBC daily. Will follow Addendum: Vancomycin was started after thrombocytopenia developed so doubt it is the reason. (3) MODS (multiple organ dysfunction syndrome) Current Visit: Yes Status: Acute Plan to address problem: Management as per primary team. Very poor prognosis for recovery.
--- NOTE | 2016-06-03 18:04 | Cat Scan Report ---
FINAL REPORT PROCEDURE: CT abdomen and pelvis without contrast. TECHNIQUE: Computerized axial tomography of the abdomen and pelvis was performed without intravenous contrast. This study is performed without intravascular contrast material and its sensitivity for abdominal and pelvic pathology, including neoplasms, inflammation, abscess, free fluid, thrombosis, arterial dissection and infarction, is reduced compared with a contrast enhanced study. HISTORY: Abdominal pain, small-bowel obstruction versus ileus. COMPARISON: No prior studies are available for comparison. FINDINGS: There is motion artifact on some of the images. The lung bases are grossly clear. There is a moderate size right pleural effusion and a small left pleural effusion. The heart size is normal. The liver, spleen and pancreas are grossly normal. The gallbladder is present. The adrenal glands are not enlarged. Both kidneys appear normal in size and configuration. There is a cortical rounded mass in the upper pole of the left kidney. This measures 2.6 centimeters in diameter and may represent a simple cyst. It is incompletely evaluated on this unenhanced study however. There is a small nonobstructing calculus in the upper pole of the left kidney. This measures 3.0 millimeters. There is a tiny amount of fluid or infiltration of the fat lateral to the right kidney. This is of doubtful clinical significance. The abdominal aorta has a normal caliber. There is atherosclerotic calcification throughout the abdominal aorta, both common iliac and both external iliac arteries. There is no retroperitoneal adenopathy. There is some amorphous material located predominantly lateral and posterior to the right psoas muscle. This has some high attenuation and I suspect that this represents retroperitoneal hemorrhage. Clinical correlation is recommended. This suspected hematoma measures approximately 11 centimeters in length by 4.7 centimeters in width by 5.1 centimeters in depth. There are diverticula scattered throughout the colon. These are concentrated in the ascending colon, descending colon and sigmoid colon. There are no definite signs of acute diverticulitis. There are no signs of intestinal obstruction. The appendix is not definitely visualized. The bladder is decompressed with a Griffin catheter. The seminal vesicles and prostate are unremarkable. The regional skeleton appears intact. There is a double-lumen right femoral vein catheter that ascends to the level of the lower inferior vena cava. IMPRESSION: Moderate size right pleural effusion and small left pleural effusion. Possible small right renal cyst. Small nonobstructing left renal calculus. Atherosclerosis. Probable right-sided retroperitoneal hemorrhage as described. Colonic diverticulosis. No evidence of intestinal obstruction.
[2016-06-03] MEDS: SINGULAIR PO SCH (18:35)
[2016-06-03] MEDS ORDERED: TYLENOL PR PRN (18:41)
--- NOTE | 2016-06-03 19:42 | Progress Note ---
Assessment and Plan Assessment and plan: Echocardiogram from May 26 shows diastolic dysfunction, systolic dysfunction is grossly normal Patient is a 80-year-old man with a history of type 2 diabetes mellitus, hypertension, dyslipidemia and chronic respiratory failure on 3 L oxygen at home due to COPD who presented with shortness breath and a cough on 05/22/2016. He was admitted for COPD exacerbation, He was placed on BiPAP. And then intubated on May 26, 2016. So, he was treated with iv heparin for suspected thromboembolism while awaiting VQ scan versus CTA chest. During his hospital course hematocrit started dropping, requiring blood transfusion and consultation with gastroenterology, heparin was dc. Also, Renal function is deteriorating questionable needing dialysis Acute on chronic hypoxic respiratory failure/ COPD exacerbation Continue abx, continue steroids and nebulizer treatments, continue daily chest x -ray, continue vent will need VQ scan vs CTA (depening on renal function )when stable enough to do the test Acute blood loss anemia No sign of acute blood loss, most likely due to sepsis/acute illness. will transfuse another 2 units today Patient has been transfused, and heparin was discontinued. Patient will most likely benefit from retroperitoneal CT when clinically stable for study Acute kidney injury- Status post Vas-Cath placement, and has received renal replacement therapy Diabetes mellitus uncontrolled Continuing insulin SBO continue NG Tube to suction, Surgery and GI input appreciated Sepsis continue current abx, ID consult appreciated, Prognosis is poor given multi- organ failure, continue aggressive care for now Critical care time spent: 35 minutes History Interval history: patient continues to spike fevers, has stayed off pressors >3 days, tolerating Cpap trial well all day, not obeying commands, but holds my hand Hospitalist Physical - Physical exam Narrative exam: General: critically ill HEENT: MMM, EOMI cardiac: S1-S2 heard lungs: Bibasilar crackles, ventilated breath sounds abdomen: Distended, bowel sounds positive extremities: 2+ edema in all extremities Skin: no rash or lesion Neuro: Intubated sedated - Constitutional Vitals: Temp Pulse Resp BP Pulse Ox 102.2 F H 135 H 24 134/66 98 06/03/16 16:46 06/03/16 17:15 06/03/16 17:15 06/03/16 17:15 06/03/16 17:15 General appearance: Present: mild distress, obese, other (orotracheal intubation , on vent) Results - Labs CBC & Chem 7: 06/03/16 04:50 06/03/16 04:50 Labs: Laboratory Last Values WBC 37.6 K/mm3 (4.5-11.0) H 06/03/16 04:50 RBC 2.72 M/mm3 (3.65-5.03) L 06/03/16 04:50 Hgb 7.8 gm/dl (11.8-15.2) L 06/03/16 04:50 Hct 24.5 % (35.5-45.6) L 06/03/16 04:50 MCV 90 fl (84-94) 06/03/16 04:50 MCH 29 pg (28-32) 06/03/16 04:50 MCHC 32 % (32-34) 06/03/16 04:50 RDW 15.0 % (13.2-15.2) 06/03/16 04:50 Plt Count 48 K/mm3 (140-440) L 06/03/16 04:50 Lymph % (Auto) 13.0 % (13.4-35.0) L 05/22/16 14:25 Nolan % (Auto) 13.1 % (0.0-7.3) H 05/22/16 14:25 Eos % (Auto) 1.1 % (0.0-4.3) 05/22/16 14:25 Baso % (Auto) 0.6 % (0.0-1.8) 05/22/16 14:25 Lymph # 0.8 K/mm3 (1.2-5.4) L 05/22/16 14:25 Nolan # 0.8 K/mm3 (0.0-0.8) 05/22/16 14:25 Eos # 0.1 K/mm3 (0.0-0.4) 05/22/16 14:25 Baso # 0.0 K/mm3 (0.0-0.1) 05/22/16 14:25 Add Manual Diff Complete 06/03/16 04:50 Total Counted 200 06/03/16 04:50 Seg Neutrophils % Faro Dealer 06/03/16 04:50 Seg Neuts % (Manual) 96.0 % (40.0-70.0) H 06/03/16 04:50 Band Neutrophils % 0 % 06/03/16 04:50 Lymphocytes % (Manual) 1.5 % (13.4-35.0) L 06/03/16 04:50 Reactive Lymphs % (Man) 0 % 06/03/16 04:50 Monocytes % (Manual) 1.5 % (0.0-7.3) 06/03/16 04:50 Eosinophils % (Manual) 0 % (0.0-4.3) 06/03/16 04:50 Basophils % (Manual) 0 % (0.0-1.8) 06/03/16 04:50 Metamyelocytes % 1.0 % 06/03/16 04:50 Myelocytes % 0 % 06/03/16 04:50 Promyelocytes % 0 % 06/03/16 04:50 Blast Cells % 0 % 06/03/16 04:50 Nucleated RBC % Not Reportable 06/03/16 04:50 Seg Neutrophils # 4.4 K/mm3 (1.8-7.7) 05/22/16 14:25 Seg Neutrophils # Man 36.1 K/mm3 (1.8-7.7) H 06/03/16 04:50 Band Neutrophils # 0.0 K/mm3 06/03/16 04:50 Lymphocytes # (Manual) 0.6 K/mm3 (1.2-5.4) L 06/03/16 04:50 Abs React Lymphs (Man) 0.0 K/mm3 06/03/16 04:50 Monocytes # (Manual) 0.6 K/mm3 (0.0-0.8) 06/03/16 04:50 Eosinophils # (Manual) 0.0 K/mm3 (0.0-0.4) 06/03/16 04:50 Basophils # (Manual) 0.0 K/mm3 (0.0-0.1) 06/03/16 04:50 Metamyelocytes # 0.4 K/mm3 06/03/16 04:50 Myelocytes # 0.0 K/mm3 06/03/16 04:50 Promyelocytes # 0.0 K/mm3 06/03/16 04:50 Blast Cells # 0.0 K/mm3 06/03/16 04:50 WBC Morphology Not Reportable 06/03/16 04:50 Hypersegmented Neuts Not Reportable 06/03/16 04:50 Hyposegmented Neuts Not Reportable 06/03/16 04:50 Hypogranular Neuts Not Reportable 06/03/16 04:50 Smudge Cells Not Reportable 06/03/16 04:50 Toxic Granulation Not Reportable 06/03/16 04:50 Toxic Vacuolation Not Reportable 06/03/16 04:50 Dohle Bodies Not Reportable 06/03/16 04:50 Pelger-Huet Anomaly Not Reportable 06/03/16 04:50 Bari Rods Not Reportable 06/03/16 04:50 Platelet Estimate Consistent w auto 06/03/16 04:50 Clumped Platelets Not Reportable 06/03/16 04:50 Plt Clumps, EDTA Not Reportable 06/03/16 04:50 Large Platelets Not Reportable 06/03/16 04:50 Giant Platelets Not Reportable 06/03/16 04:50 Platelet Satelliting Not Reportable 06/03/16 04:50 Plt Morphology Comment Not Reportable 06/03/16 04:50 RBC Morphology Normal 06/03/16 04:50 Dimorphic RBCs Not Reportable 06/03/16 04:50 Polychromasia Not Reportable 06/03/16 04:50 Hypochromasia Not Reportable 06/03/16 04:50 Poikilocytosis Not Reportable 06/03/16 04:50 Anisocytosis Not Reportable 06/03/16 04:50 Microcytosis Not Reportable 06/03/16 04:50 Macrocytosis Not Reportable 06/03/16 04:50 Spherocytes Not Reportable 06/03/16 04:50 Pappenheimer Bodies Not Reportable 06/03/16 04:50 Sickle Cells Not Reportable 06/03/16 04:50 Target Cells Not Reportable 06/03/16 04:50 Tear Drop Cells Not Reportable 06/03/16 04:50 Ovalocytes Not Reportable 06/03/16 04:50 Helmet Cells Not Reportable 06/03/16 04:50 [place] Bodies Not Reportable 06/03/16 04:50 [place] Rings Not Reportable 06/03/16 04:50 [place] Cells Not Reportable 06/03/16 04:50 Bite Cells Not Reportable 06/03/16 04:50 Crenated Cell Not Reportable 06/03/16 04:50 Elliptocytes Not Reportable 06/03/16 04:50 Acanthocytes (Spur) Not Reportable 06/03/16 04:50 Rouleaux Not Reportable 06/03/16 04:50 Hemoglobin C Crystals Not Reportable 06/03/16 04:50 Schistocytes Not Reportable 06/03/16 04:50 Malaria parasites Not Reportable 06/03/16 04:50 Andrea Bodies Not Reportable 06/03/16 04:50 Hem Pathologist Commnt No 06/03/16 04:50 PT 13.4 Sec. (12.2-14.9) 05/25/16 13:38 INR 1.03 (0.87-1.13) 05/25/16 13:38 APTT 29.5 Sec. (24.2-36.6) 05/25/16 13:38 D-Dimer 239.48 ng/mlDDU (0-234) H 05/23/16 14:16 Heparin Anti-Xa Level 1.35 U.I./ml (0.3-0.7) H 05/26/16 15:47 POC ABG pH 7.373 (7.35-7.45) 06/03/16 13:08 POC ABG pCO2 38.4 (35-45) 06/03/16 13:08 POC ABG pO2 90 (80-105) 06/03/16 13:08 POC ABG HCO3 22.3 06/03/16 13:08 POC ABG Total CO2 23 06/03/16 13:08 POC ABG O2 Sat 97 06/03/16 13:08 POC ABG Base Excess -3 06/03/16 13:08 VBG pH 7.403 (7.320-7.420) 05/22/16 14:24 FiO2 35 % 06/03/16 13:08 Sodium 144 mmol/L (137-145) 06/03/16 04:50 Potassium 4.8 mmol/L (3.6-5.0) 06/03/16 04:50 Chloride 105.8 mmol/L (98-107) 06/03/16 04:50 Carbon Dioxide 23 mmol/L (22-30) 06/03/16 04:50 Anion Gap 20 mmol/L 06/03/16 04:50 BUN 76 mg/dL (9-20) H 06/03/16 04:50 Creatinine 3.5 mg/dL (0.8-1.5) H 06/03/16 04:50 Estimated GFR 17 ml/min 06/03/16 04:50 BUN/Creatinine Ratio 21.71 % 06/03/16 04:50 Glucose 84 mg/dL (75-100) 06/03/16 04:50 POC Glucose 80 (70-105) 06/03/16 05:41 Hemoglobin A1c 6.4 % (4-6) H 05/23/16 06:02 Lactic Acid 1.2 mmol/L (0.7-2.0) 05/31/16 13:45 Calcium 5.2 mg/dL (8.4-10.2) L* 06/03/16 04:50 Phosphorus 6.6 mg/dL (2.5-4.5) H 05/30/16 05:30 Magnesium 1.7 mg/dL (1.7-2.3) 06/02/16 20:00 Total Bilirubin 0.3 mg/dL (0.1-1.2) 06/03/16 04:50 Direct Bilirubin 0.2 mg/dL (0-0.2) 05/27/16 18:25 Indirect Bilirubin 0.2 mg/dL 05/27/16 18:25 AST 39 units/L (5-40) 06/03/16 04:50 ALT 307 units/L (7-56) H 06/03/16 04:50 Alkaline Phosphatase 76 units/L (35-129) 06/03/16 04:50 Total Creatine Kinase 1486 units/L (55-170) H 05/31/16 05:50 CK-MB (CK-2) 2.1 ng/mL (0.0-4.0) 05/22/16 14:24 CK-MB (CK-2) Rel Index 3.9 (0-4) 05/22/16 14:24 Troponin T 0.023 ng/mL (0.00-0.029) 05/22/16 14:24 C-Reactive Protein 4.10 mg/dL (0.00-1.30) H 05/31/16 13:45 NT-Pro-B Natriuret Pep 316.0 pg/mL (0-900) 05/22/16 14:24 Total Protein 4.0 g/dL (6.3-8.2) L 06/03/16 04:50 Albumin 2.3 g/dL (3.9-5) L 06/03/16 04:50 Albumin/Globulin Ratio 1.4 % 06/03/16 04:50 Urine Color Yellow (Yellow) 06/01/16 17:15 Urine Turbidity Cloudy (Clear) 06/01/16 17:15 Urine pH 5.0 (5.0-7.0) 06/01/16 17:15 Ur Specific Elizabeth 1.016 (1.003-1.030) 06/01/16 17:15 Urine Protein 30 mg/dl mg/dL (Negative) 06/01/16 17:15 Urine Glucose (UA) Neg mg/dL (Negative) 06/01/16 17:15 Urine Ketones Neg mg/dL (Negative) 06/01/16 17:15 Urine Blood Lg (Negative) 06/01/16 17:15 Urine Nitrite Neg (Negative) 06/01/16 17:15 Urine Bilirubin Neg (Negative) 06/01/16 17:15 Urine Urobilinogen < 2.0 mg/dL (<2.0) 06/01/16 17:15 Ur Leukocyte Esterase Mod (Negative) 06/01/16 17:15 Urine WBC (Auto) 63.0 /HPF (0.0-6.0) H 06/01/16 17:15 Urine RBC (Auto) 83.0 /HPF (0.0-6.0) 06/01/16 17:15 U Epithel Cells (Auto) 1.0 /HPF (0-13.0) 06/01/16 17:15 Urine Bacteria (Auto) 3+ /HPF (Negative) 06/01/16 17:15 Hyaline Casts 4 /LPF 06/01/16 17:15 Granular Casts 30 /LPF 06/01/16 17:15 Urine Mucus Few /HPF 06/01/16 17:15 Urine Yeast (Budding) 3+ /HPF 06/01/16 17:15 Urine Creatinine 69.9 mg/dL (0.1-20.0) H 05/27/16 18:00 Urine Sodium 46 mEq/L 05/27/16 18:00 Random Vancomycin 7.8 ug/mL (0-40.0) 06/03/16 04:50 Hepatitis A IgM Ab -1 (NonReactive) 05/30/16 12:00 Hep Bs Antigen Non-reactive (Negative) 05/30/16 12:00 Hep B Core IgM Ab Non-reactive (NonReactive) 05/30/16 12:00 Hepatitis C Antibody Non-reactive (NonReactive) 05/30/16 12:00 Blood Type O POSITIVE 06/03/16 13:40 Antibody Screen Negative 06/03/16 13:40 Crossmatch See Detail 06/03/16 13:40
[2016-06-03 20:02] LABS: Hematocrit 25.5 % (35.5-45.6); Hemoglobin 8.3 gm/dl (11.8-15.2); Mean Corpuscular HGB Conc 32 % (32-34); Mean Corpuscular Hemoglobin 29 pg (28-32); Mean Corpuscular Volume 89 fl (84-94); Red Blood Count 2.87 M/mm3 (3.65-5.03); Red Cell Distribution Width 15.3 % (13.2-15.2); Reticulocyte % 2.11 % (0.78-2.58)
[2016-06-03 20:09] LABS: Platelet Count 59 K/mm3 (140-440); White Blood Count 38.3 K/mm3 (4.5-11.0)
[2016-06-03 20:15] LABS: INR 1.24 (0.87-1.13); Partial Thromboplastin Time 25.5 Sec. (24.2-36.6)
[2016-06-03 20:23] LABS: Iron 31 ug/dL (49-181); Total Iron Binding Capacity 151 mcg/dL (250-450)
[2016-06-03] MEDS: ZOCOR PO SCH (21:01)
[2016-06-03 21:52] LABS: Blastocytes % (Manual) 0 %
[2016-06-03 21:53] LABS: Basophils % (Manual) 0 % (0.0-1.8); Eosinophils % (Manual) 0 % (0.0-4.3)
[2016-06-03 21:54] LABS: Anisocytosis 1+; Poikilocytosis 1+
[2016-06-03 21:55] LABS: Diff Status Complete; Platelet Estimate Appears Decreased
[2016-06-04] MEDS: DUONEB 0.5 MG-3 MG/3 ML SOLN IH SCH ×4 (02:40→20:48)
[2016-06-04] MEDS: ZOSYN/NS 2.25 GM/50ML 50 ML IV SCH ×3 (05:37→21:27)
[2016-06-04] MEDS: FLAGYL 500 MG/100 ML 100 ML IV SCH ×3 (05:38→21:27)
[2016-06-04] MEDS: NOVOLOG SUB-Q SCH ×3 (06:09→18:17)
[2016-06-04 06:42] LABS: ISTAT Base Excess -6; ISTAT HCO3 20.3; ISTAT PCO2 40.4 (35-45); ISTAT PO2 73 (80-105); ISTAT SO2 93; ISTAT TCO2 22
[2016-06-04 06:44] LABS: Hematocrit 23.7 % (35.5-45.6); Hemoglobin 7.4 gm/dl (11.8-15.2); Mean Corpuscular HGB Conc 31 % (32-34); Mean Corpuscular Hemoglobin 28 pg (28-32); Mean Corpuscular Volume 91 fl (84-94); Platelet Count 63 K/mm3 (140-440); Red Blood Count 2.61 M/mm3 (3.65-5.03); Red Cell Distribution Width 15.4 % (13.2-15.2); White Blood Count 35.9 K/mm3 (4.5-11.0)
[2016-06-04 06:59] LABS: Albumin/Globulin Ratio 1.3 %; BUN/Creatinine Ratio 22.09; Bilirubin,Total 0.4 mg/dL (0.1-1.2); Chloride 105.3 mmol/L (98-107); Potassium 5.5 mmol/L (3.6-5.0); Total Protein 3.5 g/dL (6.3-8.2)
[2016-06-04 07:32] LABS: Anisocytosis 1+; Basophils % (Manual) 0 % (0.0-1.8); Blastocytes % (Manual) 0 %; Eosinophils % (Manual) 0 % (0.0-4.3); Poikilocytosis 1+
[2016-06-04 07:37] LABS: Burr Cells Rare; Diff Status Complete; Elliptocytes Few; Macrocytosis Few; Ovalocytes Few; Platelet Estimate Appears Decreased; Polychromasia Few
[2016-06-04] MEDS: PULMICORT IH SCH ×2 (07:41→20:48)
[2016-06-04] MEDS: fentaNYL DRIP Premix 100 ML IV SCH ×2 (08:04→19:35)
[2016-06-04] MEDS: ARTIFICIAL TEARS OPHTH OINT OU PRN (08:07)
--- NOTE | 2016-06-04 08:50 | Progress Note ---
Assessment and Plan - Patient Problems (1) RUBIA (acute kidney injury) Current Visit: Yes Status: Acute Plan to address problem: Acute Kidney Injury superimposed on CKD stage 3 in the setting of hypotension and anemia. Patient is off levophed. Patient was started on hemodialysis 2 days due to worsening renal function, oliguria and Hyperkalemia. Plan to do hemodialysis today. Monitor for [employer]ULT [employer] needs. Renal prognosis guarded. (2) Shock Current Visit: Yes Status: Acute Plan to address problem: S/p Levophed. (3) Lactic acidosis Current Visit: Yes Status: Acute (4) Acute on chronic respiratory failure with hypoxemia Current Visit: Yes Status: Acute Plan to address problem: On vent. (5) Anemia Current Visit: Yes Status: Acute Qualifiers: Other causes of anemia: other cause, not classified Plan to address problem: Patient is found to have right retroperitoneal hematoma. Monitor H/H. (6) Shock liver Current Visit: Yes Status: Acute Subjective Date of service: 06/04/16 Principal diagnosis: Acute on Chronic Hypoxemic Respiratory Failure Interval history: Patient remain on the vent. Objective - Vital Signs Vital signs: Vital Signs - 12hr 06/03/16 06/03/16 06/03/16 21:00 21:15 21:31 Temperature Pulse Rate 130 H 127 H 134 H Pulse Rate [ Anterior Bilateral Throughout] Pulse Rate [ From Monitor] Respiratory 17 20 21 Rate Respiratory Rate [Anterior Bilateral Throughout] Blood Pressure 110/49 102/58 124/55 O2 Sat by Pulse 97 97 97 Oximetry 06/03/16 06/03/16 06/03/16 21:45 22:00 22:15 Temperature Pulse Rate 126 H 137 H 133 H Pulse Rate [ Anterior Bilateral Throughout] Pulse Rate [ From Monitor] Respiratory 23 20 25 H Rate Respiratory Rate [Anterior Bilateral Throughout] Blood Pressure 124/55 128/53 127/61 O2 Sat by Pulse 97 99 98 Oximetry 06/03/16 06/03/16 06/03/16 22:30 22:45 23:01 Temperature Pulse Rate 130 H 132 H 133 H Pulse Rate [ Anterior Bilateral Throughout] Pulse Rate [ From Monitor] Respiratory 23 25 H 26 H Rate Respiratory Rate [Anterior Bilateral Throughout] Blood Pressure 116/54 109/49 121/55 O2 Sat by Pulse 98 98 98 Oximetry 06/03/16 06/03/16 06/03/16 23:15 23:30 23:45 Temperature Pulse Rate 126 H 125 H 124 H Pulse Rate [ Anterior Bilateral Throughout] Pulse Rate [ From Monitor] Respiratory 25 H 26 H 18 Rate Respiratory Rate [Anterior Bilateral Throughout] Blood Pressure 110/58 117/57 116/59 O2 Sat by Pulse 98 98 98 Oximetry 06/03/16 06/04/16 06/04/16 23:58 00:00 00:15 Temperature 100.6 F H Pulse Rate 124 H 124 H 130 H Pulse Rate [ Anterior Bilateral Throughout] Pulse Rate [ 124 H From Monitor] Respiratory 17 25 H Rate Respiratory Rate [Anterior Bilateral Throughout] Blood Pressure 112/55 112/55 107/58 O2 Sat by Pulse 98 96 97 Oximetry 06/04/16 06/04/16 06/04/16 00:30 00:45 01:00 Temperature Pulse Rate 129 H 123 H 121 H Pulse Rate [ Anterior Bilateral Throughout] Pulse Rate [ From Monitor] Respiratory 18 16 23 Rate Respiratory Rate [Anterior Bilateral Throughout] Blood Pressure 110/55 93/60 107/56 O2 Sat by Pulse 98 98 98 Oximetry 06/04/16 06/04/16 06/04/16 01:15 01:30 01:37 Temperature Pulse Rate 129 H 123 H 121 H Pulse Rate [ Anterior Bilateral Throughout] Pulse Rate [ From Monitor] Respiratory 15 15 24 Rate Respiratory Rate [Anterior Bilateral Throughout] Blood Pressure 121/58 125/57 125/57 O2 Sat by Pulse 98 98 98 Oximetry 06/04/16 06/04/16 06/04/16 01:45 01:47 02:00 Temperature Pulse Rate 124 H 126 H 129 H Pulse Rate [ Anterior Bilateral Throughout] Pulse Rate [ From Monitor] Respiratory 20 21 26 H Rate Respiratory Rate [Anterior Bilateral Throughout] Blood Pressure 127/59 127/59 127/59 O2 Sat by Pulse 99 98 99 Oximetry 06/04/16 06/04/16 06/04/16 02:15 02:30 02:40 Temperature Pulse Rate 130 H 130 H Pulse Rate [ 110 H Anterior Bilateral Throughout] Pulse Rate [ From Monitor] Respiratory 18 18 Rate Respiratory 26 H Rate [Anterior Bilateral Throughout] Blood Pressure 112/63 123/60 O2 Sat by Pulse 98 98 Oximetry 06/04/16 06/04/16 06/04/16 02:45 02:46 03:00 Temperature Pulse Rate 126 H 126 H 128 H Pulse Rate [ 115 H Anterior Bilateral Throughout] Pulse Rate [ From Monitor] Respiratory 21 22 14 Rate Respiratory 28 H Rate [Anterior Bilateral Throughout] Blood Pressure 113/53 123/60 106/61 O2 Sat by Pulse 98 98 98 Oximetry 06/04/16 06/04/16 06/04/16 03:01 03:15 03:30 Temperature Pulse Rate 126 H 128 H 128 H Pulse Rate [ Anterior Bilateral Throughout] Pulse Rate [ From Monitor] Respiratory 15 17 17 Rate Respiratory Rate [Anterior Bilateral Throughout] Blood Pressure 106/61 120/59 114/52 O2 Sat by Pulse 98 99 98 Oximetry 06/04/16 06/04/16 06/04/16 03:45 04:00 04:07 Temperature Pulse Rate 123 H 123 H 125 H Pulse Rate [ Anterior Bilateral Throughout] Pulse Rate [ 111 H From Monitor] Respiratory 18 20 18 Rate Respiratory Rate [Anterior Bilateral Throughout] Blood Pressure 111/49 115/62 115/62 O2 Sat by Pulse 99 97 98 Oximetry 06/04/16 06/04/16 06/04/16 04:15 04:30 04:32 Temperature 100.8 F H Pulse Rate 124 H 124 H Pulse Rate [ Anterior Bilateral Throughout] Pulse Rate [ From Monitor] Respiratory 22 19 Rate Respiratory Rate [Anterior Bilateral Throughout] Blood Pressure 119/54 125/62 O2 Sat by Pulse 99 99 Oximetry 06/04/16 06/04/16 06/04/16 04:45 04:57 05:00 Temperature Pulse Rate 120 H 127 H 131 H Pulse Rate [ Anterior Bilateral Throughout] Pulse Rate [ From Monitor] Respiratory 25 H 19 Rate Respiratory Rate [Anterior Bilateral Throughout] Blood Pressure 121/55 121/55 118/58 O2 Sat by Pulse 98 99 98 Oximetry 06/04/16 06/04/16 06/04/16 05:15 05:30 05:45 Temperature Pulse Rate 122 H 121 H 126 H Pulse Rate [ Anterior Bilateral Throughout] Pulse Rate [ From Monitor] Respiratory 16 18 15 Rate Respiratory Rate [Anterior Bilateral Throughout] Blood Pressure 116/50 111/49 112/51 O2 Sat by Pulse 99 99 99 Oximetry 06/04/16 06/04/16 06/04/16 06:00 06:01 06:15 Temperature Pulse Rate 121 H 125 H 122 H Pulse Rate [ Anterior Bilateral Throughout] Pulse Rate [ From Monitor] Respiratory 25 H 25 H Rate Respiratory Rate [Anterior Bilateral Throughout] Blood Pressure O2 Sat by Pulse 99 100 Oximetry 06/04/16 06/04/1617 06:30 06:45 07:42 Temperature Pulse Rate 119 H 122 H Pulse Rate [ 117 H Anterior Bilateral Throughout] Pulse Rate [ From Monitor] Respiratory 25 H 25 H Rate Respiratory 24 Rate [Anterior Bilateral Throughout] Blood Pressure 80/41 88/49 O2 Sat by Pulse 98 93 Oximetry 06/04/16 06/04/16 07:43 07:51 Temperature 99.4 F Pulse Rate 117 H Pulse Rate [ Anterior Bilateral Throughout] Pulse Rate [ From Monitor] Respiratory Rate Respiratory Rate [Anterior Bilateral Throughout] Blood Pressure 97/52 O2 Sat by Pulse 97 Oximetry - General Appearance General appearance: well-developed, obese, sedated on ventilator (FiO2 35%), intubated, other (right groin hemodialysis catheter noted) EENT: PERRL Neck: no carotid bruit Respiratory: Present: Ronchi, Other (coarse breath sounds) Cardiology: regular, tachycardia, S1S2 Gastrointestinal: normoactive bowel sounds, no tenderness Integumentary: no rash, warm and dry Neurologic: other (sedated) Musculoskeletal: other (no edema) Psychiatric: other (sedated.) - Lab 06/04/16 05:25 06/04/16 05:25 Most recent lab results Calcium 5.0 mg/dL (8.4-10.2) L* 06/04/16 05:25 Phosphorus 6.6 mg/dL (2.5-4.5) H 05/30/16 05:30 Magnesium 1.7 mg/dL (1.7-2.3) 06/02/16 20:00 Urine Creatinine 69.9 mg/dL (0.1-20.0) H 05/27/16 18:00 Urine Sodium 46 mEq/L 05/27/16 18:00
[2016-06-04] MEDS ORDERED: NACL 0.9% 1000 ML 100 ML IV PRN ×3 (09:00→11:23)
--- NOTE | 2016-06-04 09:05 | Progress Note ---
Assessment and Plan Assessment: Mr Hansen is an 80-year-old male followed with a known history of COPD on home O2, HTN, HLD, obesity, and DM2, who presents for admission to [facility] on 05/22/2017 with worsening shortness of breath and probable COPD exacerbation. He has developed sepsis syndrome now and is seen for further ID follow. Antibiotics: Diflucan 200 mg IV daily ( 06/03 - > Vancomycin IV (06/01 -> Zosyn 2.25 g IV every 8 hour ( 06/01 - > Metronidazole 500 mg IV every 8 hour ( 06/02- > s/p: Levaquin 750 mg IV daily (05/22- 05/26) Conclusions: 1. Sepsis syndrome - unclear etiology - Respiratory failure, AMS, pressors, lactic acidosis, RUBIA/HD, marked leukocytosis, elevated liver profile ( ? Shock liver), thrombocytopenia - R/O GI//Respiratory source 2. Leukocytosis -R/O 2nd to above -R/O 2nd to high-dose steroids 3. 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 Ileus versus SBO 5. Anemia- probably multi-factorial - Probable right retroperitoneal bleed - s/p PRBC transfusion 6 Thrombocytopenia - R/O sepsis vs drug toxicity on Vanco., Zosyn 7. Bacteriuria/funguria - Probable colonization with indwelling Griffin catheter 8. Hx COPD, DM, HTN, HLD, obesity Recommendations: - Continue broad-spectrum antibiotics to include vancomycin, Zosyn, metronidazole, and Diflucan for now - Will de-escalate antibiotics based on culture data and clinical findings. Subjective Date of service: 06/04/16 Principal diagnosis: Acute on Chronic Hypoxemic Respiratory Failure Interval history: No significant events overnight. Remains intubated on the ventilator. Off pressors with borderline blood pressure. Low-grade fever noted. CT abdomen 06/03 described probable right retroperitoneal hemorrhage. Objective - Exam Narrative Exam: Obese male. Awakes easily. Following simple commands. Orally intubated on the ventilator. HEENT: Pupils are small and minimally reactive. Conjunctiva clear. Left nares NG tube in place. Orally intubated. NECK: No enlargement of the thyroid gland. No significant cervical lymphadenopathy. No jugular venous distention at 30. LUNGS: Decreased anterior breath sounds. No wheezes or rales.. HEART: Regular rate. S1 and S2 are normal. There are no murmurs, gallops, clicks or rubs heard. ABDOMEN: Soft. Distention improved. Without focal point tenderness. No appreciable organomegaly, masses or ascites. Bowel sounds not heard. Right groin vas cath in place. Griffin catheter in place with dark yellow urine. EXTREMITIES: 1+ generalized edema. No evidence of distal cyanosis. Right upper extremity PICC dressings clean. SKIN: No other rash, ulcers or wounds. Low back with mild erythema. No skin breakdown. NEUROLOGIC: Awakes easily and follows simple commands. ? Left-sided weakness. - Constitutional Vitals: Vital Signs Temp Pulse Resp BP Pulse Ox 99.4 F 117 H 24 97/52 97 06/04/16 07:51 06/04/16 07:43 06/04/16 07:42 06/04/16 07:43 06/04/16 07:43 Temperature -Last 24 Hours Temperature 99.4 F Temperature 100.8 F Temperature 100.6 F Temperature 100.2 F Temperature 102.2 F Temperature 100.4 F - Labs CBC & Chem 7: 06/04/16 05:25 06/04/16 05:25 Labs: Abnormal lab results 06/03/16 06/03/16 06/03/16 Range/Units 13:40 19:30 19:30 WBC 38.3 H (4.5-11.0) K/mm3 RBC 2.87 L (3.65-5.03) M/mm3 Hgb 8.3 L (11.8-15.2) gm/dl Hct 25.5 L (35.5-45.6) % MCHC (32-34) % RDW 15.3 H (13.2-15.2) % Plt Count 59 L (140-440) K/mm3 Seg Neuts % (Manual) 97.0 H (40.0-70.0) % Lymphocytes % (Manual) 1.0 L (13.4-35.0) % Nucleated RBC % 2.0 H (0.0-0.9) % Seg Neutrophils # Man 37.2 H (1.8-7.7) K/mm3 Lymphocytes # (Manual) 0.4 L (1.2-5.4) K/mm3 PT 15.5 H (12.2-14.9) Sec. INR 1.24 H (0.87-1.13) Fibrinogen 191 L (211-480) mg/dl POC ABG pH (7.35-7.45) POC ABG pO2 (80-105) Potassium (3.6-5.0) mmol/L Carbon Dioxide (22-30) mmol/L BUN (9-20) mg/dL Creatinine (0.8-1.5) mg/dL Glucose (75-100) mg/dL POC Glucose (70-105) Calcium (8.4-10.2) mg/dL Iron (49-181) ug/dL TIBC (250-450) mcg/dL AST (5-40) units/L ALT (7-56) units/L Total Protein (6.3-8.2) g/dL Albumin (3.9-5) g/dL Vitamin B12 (211-911) pg/mL Crossmatch See Detail 06/03/16 06/03/16 06/03/16 Range/Units 19:30 19:30 23:28 WBC (4.5-11.0) K/mm3 RBC (3.65-5.03) M/mm3 Hgb (11.8-15.2) gm/dl Hct (35.5-45.6) % MCHC (32-34) % RDW (13.2-15.2) % Plt Count (140-440) K/mm3 Seg Neuts % (Manual) (40.0-70.0) % Lymphocytes % (Manual) (13.4-35.0) % Nucleated RBC % (0.0-0.9) % Seg Neutrophils # Man (1.8-7.7) K/mm3 Lymphocytes # (Manual) (1.2-5.4) K/mm3 PT (12.2-14.9) Sec. INR (0.87-1.13) Fibrinogen (211-480) mg/dl POC ABG pH (7.35-7.45) POC ABG pO2 (80-105) Potassium (3.6-5.0) mmol/L Carbon Dioxide (22-30) mmol/L BUN (9-20) mg/dL Creatinine (0.8-1.5) mg/dL Glucose (75-100) mg/dL POC Glucose 118 H (70-105) Calcium (8.4-10.2) mg/dL Iron 31 L (49-181) ug/dL TIBC 151 L (250-450) mcg/dL AST (5-40) units/L ALT (7-56) units/L Total Protein (6.3-8.2) g/dL Albumin (3.9-5) g/dL Vitamin B12 1851 H (211-911) pg/mL Crossmatch 06/04/16 06/04/16 06/04/16 Range/Units 05:10 05:25 05:25 WBC 35.9 H (4.5-11.0) K/mm3 RBC 2.61 L (3.65-5.03) M/mm3 Hgb 7.4 L (11.8-15.2) gm/dl Hct 23.7 L (35.5-45.6) % MCHC 31 L (32-34) % RDW 15.4 H (13.2-15.2) % Plt Count 63 L (140-440) K/mm3 Seg Neuts % (Manual) 93.0 H (40.0-70.0) % Lymphocytes % (Manual) 0 L (13.4-35.0) % Nucleated RBC % 3.0 H (0.0-0.9) % Seg Neutrophils # Man 33.4 H (1.8-7.7) K/mm3 Lymphocytes # (Manual) 0.0 L (1.2-5.4) K/mm3 PT (12.2-14.9) Sec. INR (0.87-1.13) Fibrinogen 157 L (211-480) mg/dl POC ABG pH 7.310 L (7.35-7.45) POC ABG pO2 73 L (80-105) Potassium (3.6-5.0) mmol/L Carbon Dioxide (22-30) mmol/L BUN (9-20) mg/dL Creatinine (0.8-1.5) mg/dL Glucose (75-100) mg/dL POC Glucose (70-105) Calcium (8.4-10.2) mg/dL Iron (49-181) ug/dL TIBC (250-450) mcg/dL AST (5-40) units/L ALT (7-56) units/L Total Protein (6.3-8.2) g/dL Albumin (3.9-5) g/dL Vitamin B12 (211-911) pg/mL Crossmatch 06/04/16 06/04/16 Range/Units 05:25 05:46 WBC (4.5-11.0) K/mm3 RBC (3.65-5.03) M/mm3 Hgb (11.8-15.2) gm/dl Hct (35.5-45.6) % MCHC (32-34) % RDW (13.2-15.2) % Plt Count (140-440) K/mm3 Seg Neuts % (Manual) (40.0-70.0) % Lymphocytes % (Manual) (13.4-35.0) % Nucleated RBC % (0.0-0.9) % Seg Neutrophils # Man (1.8-7.7) K/mm3 Lymphocytes # (Manual) (1.2-5.4) K/mm3 PT (12.2-14.9) Sec. INR (0.87-1.13) Fibrinogen (211-480) mg/dl POC ABG pH (7.35-7.45) POC ABG pO2 (80-105) Potassium 5.5 H (3.6-5.0) mmol/L Carbon Dioxide 18 L (22-30) mmol/L BUN 95 H (9-20) mg/dL Creatinine 4.3 H (0.8-1.5) mg/dL Glucose 119 H (75-100) mg/dL POC Glucose 136 H (70-105) Calcium 5.0 L* (8.4-10.2) mg/dL Iron (49-181) ug/dL TIBC (250-450) mcg/dL AST 57 H (5-40) units/L ALT 214 H (7-56) units/L Total Protein 3.5 L (6.3-8.2) g/dL Albumin 2.0 L (3.9-5) g/dL Vitamin B12 (211-911) pg/mL Crossmatch
[2016-06-04] MEDS ORDERED: HEPARIN IV PRN (11:23)
--- NOTE | 2016-06-04 11:37 | Progress Note ---
Assessment and Plan Assessment and plan: Echocardiogram from May 26 shows diastolic dysfunction, systolic dysfunction is grossly normal Patient is a 80-year-old man with a history of type 2 diabetes mellitus, hypertension, dyslipidemia and chronic respiratory failure on 3 L oxygen at home due to COPD who presented with shortness breath and a cough on 05/22/2016. He was admitted for COPD exacerbation, He was placed on BiPAP. And then intubated on May 26, 2016. So, he was treated with iv heparin for suspected thromboembolism while awaiting VQ scan versus CTA chest. During his hospital course hematocrit started dropping, requiring blood transfusion and consultation with gastroenterology, heparin was dc. Also, Renal function is deteriorating questionable needing dialysis Acute on chronic hypoxic respiratory failure/ COPD exacerbation Continue abx, continue steroids and nebulizer treatments, continue daily chest x -ray, continue vent will need VQ scan vs CTA (depending on renal function )when stable enough to do the test, unlikely to tolerate blood thinners due to bleeding, will place IVC filter if found to have VTE Acute blood loss anemia sp multiple transfusion -likely due to sepsis and acute blood loss CT shows right retroperitoneal hematoma transfuse one unit prbc today Acute kidney injury- continue renal replacement therapy per nephrology Diabetes mellitus uncontrolled Continuing insulin SBO continue NG Tube to suction, Surgery and GI input appreciated Sepsis with multi organ failure continue current abx broad spectrum, continue pressors, fup cultures, ID consult appreciated, Prognosis is poor given multi-organ failure, continue aggressive care for now Critical care time spent: 35 minutes History Interval history: patient continues to spike fevers, 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, tolerated Cpap trial well yesterday but back on vent , not obeying commands, sedated Hospitalist Physical - Physical exam Narrative exam: General: critically ill HEENT: MMM, EOMI cardiac: S1-S2 heard lungs: Bibasilar crackles, ventilated breath sounds abdomen: Distended, bowel sounds positive extremities: 2+ edema in all extremities, weeping Skin: no rash or lesion Neuro: Intubated sedated - Constitutional Vitals: Temp Pulse Resp BP Pulse Ox 99.4 F 143 H 15 97/37 98 06/04/16 09:45 06/04/16 11:15 06/04/16 10:30 06/04/16 11:15 06/04/16 10:59 General appearance: Present: mild distress, obese, other (orotracheal intubation , on vent) Results - Labs CBC & Chem 7: 06/05/16 22:30 06/06/16 03:48 Labs: Laboratory Last Values WBC 35.9 K/mm3 (4.5-11.0) H 06/04/16 05:25 RBC 2.61 M/mm3 (3.65-5.03) L 06/04/16 05:25 Hgb 7.4 gm/dl (11.8-15.2) L 06/04/16 05:25 Hct 23.7 % (35.5-45.6) L 06/04/16 05:25 MCV 91 fl (84-94) 06/04/16 05:25 MCH 28 pg (28-32) 06/04/16 05:25 MCHC 31 % (32-34) L 06/04/16 05:25 RDW 15.4 % (13.2-15.2) H 06/04/16 05:25 Plt Count 63 K/mm3 (140-440) L 06/04/16 05:25 Lymph % (Auto) 13.0 % (13.4-35.0) L 05/22/16 14:25 [place] % (Auto) 13.1 % (0.0-7.3) H 05/22/16 14:25 Eos % (Auto) 1.1 % (0.0-4.3) 05/22/16 14:25 Baso % (Auto) 0.6 % (0.0-1.8) 05/22/16 14:25 Lymph # 0.8 K/mm3 (1.2-5.4) L 05/22/16 14:25 [place] # 0.8 K/mm3 (0.0-0.8) 05/22/16 14:25 Eos # 0.1 K/mm3 (0.0-0.4) 05/22/16 14:25 Baso # 0.0 K/mm3 (0.0-0.1) 05/22/16 14:25 Add Manual Diff Complete 06/04/16 05:25 Total Counted 100 06/04/16 05:25 Seg Neutrophils % Plate Glass Installer Helper 06/04/16 05:25 Seg Neuts % (Manual) 93.0 % (40.0-70.0) H 06/04/16 05:25 Band Neutrophils % 5.0 % 06/04/16 05:25 Lymphocytes % (Manual) 0 % (13.4-35.0) L 06/04/16 05:25 Reactive Lymphs % (Man) 0 % 06/04/16 05:25 Monocytes % (Manual) 1.0 % (0.0-7.3) 06/04/16 05:25 Eosinophils % (Manual) 0 % (0.0-4.3) 06/04/16 05:25 Basophils % (Manual) 0 % (0.0-1.8) 06/04/16 05:25 Metamyelocytes % 1.0 % 06/04/16 05:25 Myelocytes % 0 % 06/04/16 05:25 Promyelocytes % 0 % 06/04/16 05:25 Blast Cells % 0 % 06/04/16 05:25 Nucleated RBC % 3.0 % (0.0-0.9) H 06/04/16 05:25 Seg Neutrophils # 4.4 K/mm3 (1.8-7.7) 05/22/16 14:25 Seg Neutrophils # Man 33.4 K/mm3 (1.8-7.7) H 06/04/16 05:25 Band Neutrophils # 1.8 K/mm3 06/04/16 05:25 Lymphocytes # (Manual) 0.0 K/mm3 (1.2-5.4) L 06/04/16 05:25 Abs React Lymphs (Man) 0.0 K/mm3 06/04/16 05:25 Monocytes # (Manual) 0.4 K/mm3 (0.0-0.8) 06/04/16 05:25 Eosinophils # (Manual) 0.0 K/mm3 (0.0-0.4) 06/04/16 05:25 Basophils # (Manual) 0.0 K/mm3 (0.0-0.1) 06/04/16 05:25 Metamyelocytes # 0.4 K/mm3 06/04/16 05:25 Myelocytes # 0.0 K/mm3 06/04/16 05:25 Promyelocytes # 0.0 K/mm3 06/04/16 05:25 Blast Cells # 0.0 K/mm3 06/04/16 05:25 WBC Morphology Not Reportable 06/04/16 05:25 Hypersegmented Neuts Not Reportable 06/04/16 05:25 Hyposegmented Neuts Not Reportable 06/04/16 05:25 Hypogranular Neuts Not Reportable 06/04/16 05:25 Smudge Cells Not Reportable 06/04/16 05:25 Toxic Granulation Not Reportable 06/04/16 05:25 Toxic Vacuolation Not Reportable 06/04/16 05:25 Dohle Bodies Not Reportable 06/04/16 05:25 Pelger-Huet Anomaly Not Reportable 06/04/16 05:25 Bari Rods Not Reportable 06/04/16 05:25 Platelet Estimate Appears decreased 06/04/16 05:25 Clumped Platelets Not Reportable 06/04/16 05:25 Plt Clumps, EDTA Not Reportable 06/04/16 05:25 Large Platelets Not Reportable 06/04/16 05:25 Giant Platelets Not Reportable 06/04/16 05:25 Platelet Satelliting Not Reportable 06/04/16 05:25 Plt Morphology Comment Not Reportable 06/04/16 05:25 RBC Morphology Not Reportable 06/04/16 05:25 Dimorphic RBCs Not Reportable 06/04/16 05:25 Polychromasia Few 06/04/16 05:25 Hypochromasia Not Reportable 06/04/16 05:25 Poikilocytosis 1+ 06/04/16 05:25 Anisocytosis 1+ 06/04/16 05:25 Microcytosis Not Reportable 06/04/16 05:25 Macrocytosis Few 06/04/16 05:25 Spherocytes Not Reportable 06/04/16 05:25 Pappenheimer Bodies Not Reportable 06/04/16 05:25 Sickle Cells Not Reportable 06/04/16 05:25 Target Cells Not Reportable 06/04/16 05:25 Tear Drop Cells Not Reportable 06/04/16 05:25 Ovalocytes Few 06/04/16 05:25 Helmet Cells Not Reportable 06/04/16 05:25 [place] Bodies Not Reportable 06/04/16 05:25 Climax Rings Not Reportable 06/04/16 05:25 [place] Cells Rare 06/04/16 05:25 Bite Cells Rare 06/04/16 05:25 Crenated Cell Not Reportable 06/04/16 05:25 Elliptocytes Few 06/04/16 05:25 Acanthocytes (Spur) Not Reportable 06/04/16 05:25 Rouleaux Not Reportable 06/04/16 05:25 Hemoglobin C Crystals Not Reportable 06/04/16 05:25 Schistocytes Not Reportable 06/04/16 05:25 Malaria parasites Not Reportable 06/04/16 05:25 Percent Retic 2.11 % (0.78-2.58) 06/03/16 19:30 Andrea Bodies Not Reportable 06/04/16 05:25 Hem Pathologist Commnt No 06/04/16 05:25 PT 15.5 Sec. (12.2-14.9) H 06/03/16 19:30 INR 1.24 (0.87-1.13) H 06/03/16 19:30 APTT 25.5 Sec. (24.2-36.6) 06/03/16 19:30 Fibrinogen 157 mg/dl (211-480) L 06/04/16 05:25 D-Dimer 239.48 ng/mlDDU (0-234) H 05/23/16 14:16 Heparin Anti-Xa Level 1.35 U.I./ml (0.3-0.7) H 05/26/16 15:47 POC ABG pH 7.310 (7.35-7.45) L 06/04/16 05:10 POC ABG pCO2 40.4 (35-45) 06/04/16 05:10 POC ABG pO2 73 (80-105) L 06/04/16 05:10 POC ABG HCO3 20.3 06/04/16 05:10 POC ABG Total CO2 22 06/04/16 05:10 POC ABG O2 Sat 93 06/04/16 05:10 POC ABG Base Excess -6 06/04/16 05:10 VBG pH 7.403 (7.320-7.420) 05/22/16 14:24 FiO2 35 % 06/04/16 05:10 Sodium 142 mmol/L (137-145) 06/04/16 05:25 Potassium 5.5 mmol/L (3.6-5.0) H 06/04/16 05:25 Chloride 105.3 mmol/L (98-107) 06/04/16 05:25 Carbon Dioxide 18 mmol/L (22-30) L 06/04/16 05:25 Anion Gap 24 mmol/L 06/04/16 05:25 BUN 95 mg/dL (9-20) H 06/04/16 05:25 Creatinine 4.3 mg/dL (0.8-1.5) H 06/04/16 05:25 Estimated GFR 13 ml/min 06/04/16 05:25 BUN/Creatinine Ratio 22.09 % 06/04/16 05:25 Glucose 119 mg/dL (75-100) H 06/04/16 05:25 POC Glucose 136 (70-105) H 06/04/16 05:46 Hemoglobin A1c 6.4 % (4-6) H 05/23/16 06:02 Lactic Acid 1.2 mmol/L (0.7-2.0) 05/31/16 13:45 Calcium 5.0 mg/dL (8.4-10.2) L* 06/04/16 05:25 Phosphorus 6.6 mg/dL (2.5-4.5) H 05/30/16 05:30 Magnesium 1.7 mg/dL (1.7-2.3) 06/02/16 20:00 Iron 31 ug/dL (49-181) L 06/03/16 19:30 TIBC 151 mcg/dL (250-450) L 06/03/16 19:30 Ferritin 285.7 ng/mL (13.0-400.0) 06/03/16 19:30 Total Bilirubin 0.4 mg/dL (0.1-1.2) 06/04/16 05:25 Direct Bilirubin 0.2 mg/dL (0-0.2) 05/27/16 18:25 Indirect Bilirubin 0.2 mg/dL 05/27/16 18:25 AST 57 units/L (5-40) H 06/04/16 05:25 ALT 214 units/L (7-56) H 06/04/16 05:25 Alkaline Phosphatase 67 units/L (35-129) 06/04/16 05:25 Total Creatine Kinase 1486 units/L (55-170) H 05/31/16 05:50 CK-MB (CK-2) 2.1 ng/mL (0.0-4.0) 05/22/16 14:24 CK-MB (CK-2) Rel Index 3.9 (0-4) 05/22/16 14:24 Troponin T 0.023 ng/mL (0.00-0.029) 05/22/16 14:24 C-Reactive Protein 4.10 mg/dL (0.00-1.30) H 05/31/16 13:45 NT-Pro-B Natriuret Pep 316.0 pg/mL (0-900) 05/22/16 14:24 Total Protein 3.5 g/dL (6.3-8.2) L 06/04/16 05:25 Albumin 2.0 g/dL (3.9-5) L 06/04/16 05:25 Albumin/Globulin Ratio 1.3 % 06/04/16 05:25 Vitamin B12 1851 pg/mL (211-911) H 06/03/16 19:30 Folate > 20.00 ng/mL (7.3-26.0) 06/03/16 19:30 Urine Color Yellow (Yellow) 06/01/16 17:15 Urine Turbidity Cloudy (Clear) 06/01/16 17:15 Urine pH 5.0 (5.0-7.0) 06/01/16 17:15 Ur Specific [place] 1.016 (1.003-1.030) 06/01/16 17:15 Urine Protein 30 mg/dl mg/dL (Negative) 06/01/16 17:15 Urine Glucose (UA) Neg mg/dL (Negative) 06/01/16 17:15 Urine Ketones Neg mg/dL (Negative) 06/01/16 17:15 Urine Blood Lg (Negative) 06/01/16 17:15 Urine Nitrite Neg (Negative) 06/01/16 17:15 Urine Bilirubin Neg (Negative) 06/01/16 17:15 Urine Urobilinogen < 2.0 mg/dL (<2.0) 06/01/16 17:15 Ur Leukocyte Esterase Mod (Negative) 06/01/16 17:15 Urine WBC (Auto) 63.0 /HPF (0.0-6.0) H 06/01/16 17:15 Urine RBC (Auto) 83.0 /HPF (0.0-6.0) 06/01/16 17:15 U Epithel Cells (Auto) 1.0 /HPF (0-13.0) 06/01/16 17:15 Urine Bacteria (Auto) 3+ /HPF (Negative) 06/01/16 17:15 Hyaline Casts 4 /LPF 06/01/16 17:15 Granular Casts 30 /LPF 06/01/16 17:15 Urine Mucus Few /HPF 06/01/16 17:15 Urine Yeast (Budding) 3+ /HPF 06/01/16 17:15 Urine Creatinine 69.9 mg/dL (0.1-20.0) H 05/27/16 18:00 Urine Sodium 46 mEq/L 05/27/16 18:00 Random Vancomycin 7.8 ug/mL (0-40.0) 06/03/16 04:50 Hepatitis A IgM Ab -1 (NonReactive) 05/30/16 12:00 Hep Bs Antigen Non-reactive (Negative) 05/30/16 12:00 Hep B Core IgM Ab Non-reactive (NonReactive) 05/30/16 12:00 Hepatitis C Antibody Non-reactive (NonReactive) 05/30/16 12:00 Blood Type O POSITIVE 06/03/16 13:40 Antibody Screen Negative 06/03/16 13:40 Crossmatch See Detail 06/03/16 13:40
--- NOTE | 2016-06-04 12:00 | Progress Note ---
Assessment and Plan - Patient Problems (1) Acute exacerbation of chronic obstructive pulmonary disease (COPD) Current Visit: Yes Status: Acute Plan to address problem: - continue supplemental oxygen to keep sats >/= 92% - continue empiric AB's and follow cultures - continue ALIN and LABA - continue systemic steroids with slow taper - complete VTE w/up (Unable to do VQ or CTA re: azotemia) - repeat ABG prn - Holding on weaning till more stable - failed bedside SBT - added versed and increased sedation for now with daily sedation vacations - continue daily weaning trials (but failed bedside SBT today) (2) Acute on chronic respiratory failure with hypoxemia Current Visit: Yes Status: Acute Plan to address problem: - as above - continue aspiration precautions / VAP bundles - continue bronchodilators and pulmonary toilet - resume fentanyl drip for sedation/analgesia - get KUB and decompress abdomen if necessary (will give simethicone in short term +/- reglan) - added seroquel and prn xanax for anxiolysis - resumed IV versed - weaning tenuously not unexpectedly so far; if does not wean well may need LTAC evaluation but not at this point - continue daily PSV trials as tolerated (3) Obesity Current Visit: Yes Status: Acute Plan to address problem: - weight loss - outpatient PSG (4) Sepsis syndrome Current Visit: Yes Status: Acute Plan to address problem: - CRP unremarkable - Lactate trended down - hold on broadening AB's - get labs and r/o significant bleeding occultly - aggressive volume resuscitation - central venous access obtained - stopped alkalanized fluids - switch to more conservative volume management at this point - continue to follow off AB's - continue to wean levophed to keep MAP > 60-65mmHg - will get ID input - Anti-infectives per ID recs - WBC down today (5) Anemia Current Visit: Yes Status: Acute Qualifiers: Other causes of anemia: other cause, not classified Plan to address problem: - suspect inappropriate rise in Hb post 2 units PRBC's is due to hemodilution - will follow and hold on transfusion except Hb < 7.0 at this point - GI evaluation noted - change to bid PPI dosing - Hb noted but will hold on transfusion and trend - follow CT abd/pelvis - retroperitoneal bleed on CT abd/pelvis - will give cryoprecipitate and vitamin K re: coagulopathy (6) RUBIA (acute kidney injury) Current Visit: Yes Status: Acute Plan to address problem: - will consult nephrology sooner rather than later - likely ATN component in setting of IVVD - nephrology consulted and evaluation ongoing - oliguria developing now - will get vascath - discussed with containers sales representative and will likely need METAL TEMPERER - tolerated Dialysis - still making some urine - continue HD/UF per nephrology recs (7) Thrombocytopenia Current Visit: Yes Status: Acute Plan to address problem: - likely related to sepsis and azotemia - stopped heparinoids - await HIT assay result - will taper solumedrol at this point (8) Tachycardia Current Visit: Yes Status: Acute Plan to address problem: - improved - cardiology on case (9) Small bowel obstruction Current Visit: Yes Status: Acute Plan to address problem: - likely ileus related to retroperitoneal bleed and sepsis (10) Discharge planning issues Current Visit: Yes Status: Acute Plan to address problem: - weaning tenuously but not unexpectedly so far; if does not wean well may need LTAC evaluation but not at this point - will revisit with family in am ...he is critically ill on life sustaining interventions including MVS and at high risk for further deterioration including ...34' CCT Subjective Date of service: 06/04/16 Principal diagnosis: Acute on Chronic Hypoxemic Respiratory Failure Interval history: seen and examined at bedside; 24hour events reviewed; nursing and respiratory care staff consulted; no adverse overnight events reported to me; H&H dropping further but CT abd/pelvis confirms retroperitoneal bleed; coagulopathy also noted re: low fibrinogen levels also; still follows commads during sedation holiday Objective Vital Signs - 12hr 06/04/16 06/04/16 06/04/16 00:15 00:30 00:45 Temperature Pulse Rate 130 H 129 H 123 H Pulse Rate [ Anterior Bilateral Throughout] Pulse Rate [ From Monitor] Respiratory 25 H 18 16 Rate Respiratory Rate [Anterior Bilateral Throughout] Respiratory Rate [ Generalized] Blood Pressure 107/58 110/55 93/60 O2 Sat by Pulse 97 98 98 Oximetry O2 Sat by Pulse Oximetry [ Anterior Bilateral Throughout] 06/04/16 06/04/16 06/04/16 01:00 01:15 01:30 Temperature Pulse Rate 121 H 129 H 123 H Pulse Rate [ Anterior Bilateral Throughout] Pulse Rate [ From Monitor] Respiratory 23 15 15 Rate Respiratory Rate [Anterior Bilateral Throughout] Respiratory Rate [ Generalized] Blood Pressure 107/56 121/58 125/57 O2 Sat by Pulse 98 98 98 Oximetry O2 Sat by Pulse Oximetry [ Anterior Bilateral Throughout] 06/04/16 06/04/16 06/04/16 01:37 01:45 01:47 Temperature Pulse Rate 121 H 124 H 126 H Pulse Rate [ Anterior Bilateral Throughout] Pulse Rate [ From Monitor] Respiratory 24 20 21 Rate Respiratory Rate [Anterior Bilateral Throughout] Respiratory Rate [ Generalized] Blood Pressure 125/57 127/59 127/59 O2 Sat by Pulse 98 99 98 Oximetry O2 Sat by Pulse Oximetry [ Anterior Bilateral Throughout] 06/04/16 06/04/16 06/04/16 02:00 02:15 02:30 Temperature Pulse Rate 129 H 130 H 130 H Pulse Rate [ Anterior Bilateral Throughout] Pulse Rate [ From Monitor] Respiratory 26 H 18 18 Rate Respiratory Rate [Anterior Bilateral Throughout] Respiratory Rate [ Generalized] Blood Pressure 127/59 112/63 123/60 O2 Sat by Pulse 99 98 98 Oximetry O2 Sat by Pulse Oximetry [ Anterior Bilateral Throughout] 06/04/16 06/04/16 06/04/16 02:40 02:45 02:46 Temperature Pulse Rate 126 H 126 H Pulse Rate [ 110 H Anterior Bilateral Throughout] Pulse Rate [ From Monitor] Respiratory 21 22 Rate Respiratory 26 H Rate [Anterior Bilateral Throughout] Respiratory Rate [ Generalized] Blood Pressure 113/53 123/60 O2 Sat by Pulse 98 98 Oximetry O2 Sat by Pulse Oximetry [ Anterior Bilateral Throughout] 06/04/16 06/04/16 06/04/16 03:00 03:01 03:15 Temperature Pulse Rate 128 H 126 H 128 H Pulse Rate [ 115 H Anterior Bilateral Throughout] Pulse Rate [ From Monitor] Respiratory 14 15 17 Rate Respiratory 28 H Rate [Anterior Bilateral Throughout] Respiratory Rate [ Generalized] Blood Pressure 106/61 106/61 120/59 O2 Sat by Pulse 98 98 99 Oximetry O2 Sat by Pulse Oximetry [ Anterior Bilateral Throughout] 06/04/16 06/04/16 06/04/16 03:30 03:45 04:00 Temperature Pulse Rate 128 H 123 H 123 H Pulse Rate [ Anterior Bilateral Throughout] Pulse Rate [ 111 H From Monitor] Respiratory 17 18 20 Rate Respiratory Rate [Anterior Bilateral Throughout] Respiratory Rate [ Generalized] Blood Pressure 114/52 111/49 115/62 O2 Sat by Pulse 98 99 97 Oximetry O2 Sat by Pulse Oximetry [ Anterior Bilateral Throughout] 06/04/16 06/04/16 06/04/16 04:07 04:15 04:30 Temperature Pulse Rate 125 H 124 H 124 H Pulse Rate [ Anterior Bilateral Throughout] Pulse Rate [ From Monitor] Respiratory 18 22 19 Rate Respiratory Rate [Anterior Bilateral Throughout] Respiratory Rate [ Generalized] Blood Pressure 115/62 119/54 125/62 O2 Sat by Pulse 98 99 99 Oximetry O2 Sat by Pulse Oximetry [ Anterior Bilateral Throughout] 06/04/16 06/04/16 06/04/16 04:32 04:45 04:57 Temperature 100.8 F H Pulse Rate 120 H 127 H Pulse Rate [ Anterior Bilateral Throughout] Pulse Rate [ From Monitor] Respiratory 25 H Rate Respiratory Rate [Anterior Bilateral Throughout] Respiratory Rate [ Generalized] Blood Pressure 121/55 121/55 O2 Sat by Pulse 98 99 Oximetry O2 Sat by Pulse Oximetry [ Anterior Bilateral Throughout] 06/04/16 06/04/16 06/04/16 05:00 05:15 05:30 Temperature Pulse Rate 131 H 122 H 121 H Pulse Rate [ Anterior Bilateral Throughout] Pulse Rate [ From Monitor] Respiratory 19 16 18 Rate Respiratory Rate [Anterior Bilateral Throughout] Respiratory Rate [ Generalized] Blood Pressure 118/58 116/50 111/49 O2 Sat by Pulse 98 99 99 Oximetry O2 Sat by Pulse Oximetry [ Anterior Bilateral Throughout] 06/04/16 06/04/16 06/04/16 05:45 06:00 06:01 Temperature Pulse Rate 126 H 121 H 125 H Pulse Rate [ Anterior Bilateral Throughout] Pulse Rate [ From Monitor] Respiratory 15 25 H Rate Respiratory Rate [Anterior Bilateral Throughout] Respiratory Rate [ Generalized] Blood Pressure 112/51 O2 Sat by Pulse 99 99 Oximetry O2 Sat by Pulse Oximetry [ Anterior Bilateral Throughout] 06/04/16 06/04/16 06/04/16 06:15 06:30 06:45 Temperature Pulse Rate 122 H 119 H 122 H Pulse Rate [ Anterior Bilateral Throughout] Pulse Rate [ From Monitor] Respiratory 25 H 25 H 25 H Rate Respiratory Rate [Anterior Bilateral Throughout] Respiratory Rate [ Generalized] Blood Pressure 80/41 88/49 O2 Sat by Pulse 100 98 93 Oximetry O2 Sat by Pulse Oximetry [ Anterior Bilateral Throughout] 06/04/16 06/04/16 06/04/16 06:47 07:00 07:15 Temperature Pulse Rate 122 H 124 H 112 H Pulse Rate [ Anterior Bilateral Throughout] Pulse Rate [ From Monitor] Respiratory 25 H 24 26 H Rate Respiratory Rate [Anterior Bilateral Throughout] Respiratory Rate [ Generalized] Blood Pressure 88/49 89/46 88/43 O2 Sat by Pulse 94 96 97 Oximetry O2 Sat by Pulse Oximetry [ Anterior Bilateral Throughout] 06/04/16 06/04/16 06/04/16 07:30 07:42 07:43 Temperature Pulse Rate 116 H 117 H Pulse Rate [ 117 H Anterior Bilateral Throughout] Pulse Rate [ From Monitor] Respiratory 25 H Rate Respiratory 24 Rate [Anterior Bilateral Throughout] Respiratory Rate [ Generalized] Blood Pressure 97/52 97/52 O2 Sat by Pulse 97 97 Oximetry O2 Sat by Pulse Oximetry [ Anterior Bilateral Throughout] 06/04/16 06/04/16 06/04/16 07:45 07:51 07:55 Temperature 99.4 F Pulse Rate 117 H Pulse Rate [ 96 H Anterior Bilateral Throughout] Pulse Rate [ From Monitor] Respiratory 21 Rate Respiratory 24 Rate [Anterior Bilateral Throughout] Respiratory Rate [ Generalized] Blood Pressure 101/43 O2 Sat by Pulse 98 Oximetry O2 Sat by Pulse Oximetry [ Anterior Bilateral Throughout] 06/04/16 06/04/16 06/04/16 08:00 08:15 08:31 Temperature Pulse Rate 115 H 112 H 115 H Pulse Rate [ Anterior Bilateral Throughout] Pulse Rate [ 114 H From Monitor] Respiratory 20 25 H 25 H Rate Respiratory Rate [Anterior Bilateral Throughout] Respiratory Rate [ Generalized] Blood Pressure 92/44 78/36 83/38 O2 Sat by Pulse 100 100 99 Oximetry O2 Sat by Pulse Oximetry [ Anterior Bilateral Throughout] 06/04/16 06/04/16 06/04/16 08:45 09:01 09:15 Temperature Pulse Rate 119 H 140 H 141 H Pulse Rate [ Anterior Bilateral Throughout] Pulse Rate [ From Monitor] Respiratory 22 25 H 28 H Rate Respiratory Rate [Anterior Bilateral Throughout] Respiratory Rate [ Generalized] Blood Pressure 99/51 152/66 176/57 O2 Sat by Pulse 99 99 99 Oximetry O2 Sat by Pulse Oximetry [ Anterior Bilateral Throughout] 06/04/16 06/04/16 06/04/16 09:28 09:31 09:35 Temperature Pulse Rate 133 H 132 H 126 H Pulse Rate [ Anterior Bilateral Throughout] Pulse Rate [ From Monitor] Respiratory 17 19 25 H Rate Respiratory Rate [Anterior Bilateral Throughout] Respiratory Rate [ Generalized] Blood Pressure 152/66 123/47 123/47 O2 Sat by Pulse 98 98 98 Oximetry O2 Sat by Pulse Oximetry [ Anterior Bilateral Throughout] 06/04/16 06/04/16 06/04/16 09:45 09:53 10:00 Temperature 99.4 F Pulse Rate 135 H 130 H 138 H Pulse Rate [ Anterior Bilateral Throughout] Pulse Rate [ From Monitor] Respiratory 20 20 17 Rate Respiratory Rate [Anterior Bilateral Throughout] Respiratory 26 H Rate [ Generalized] Blood Pressure 129/46 129/46 115/43 O2 Sat by Pulse 98 99 98 Oximetry O2 Sat by Pulse 99 Oximetry [ Anterior Bilateral Throughout] 06/04/16 06/04/16 06/04/16 10:15 10:30 10:45 Temperature Pulse Rate 142 H 131 H 125 H Pulse Rate [ Anterior Bilateral Throughout] Pulse Rate [ From Monitor] Respiratory 20 15 Rate Respiratory Rate [Anterior Bilateral Throughout] Respiratory Rate [ Generalized] Blood Pressure 91/46 94/40 85/44 O2 Sat by Pulse 100 99 Oximetry O2 Sat by Pulse Oximetry [ Anterior Bilateral Throughout] 06/04/16 06/04/16 06/04/16 10:59 11:02 11:15 Temperature Pulse Rate 124 H 145 H 143 H Pulse Rate [ Anterior Bilateral Throughout] Pulse Rate [ From Monitor] Respiratory Rate Respiratory Rate [Anterior Bilateral Throughout] Respiratory Rate [ Generalized] Blood Pressure 85/44 93/43 97/37 O2 Sat by Pulse 98 Oximetry O2 Sat by Pulse Oximetry [ Anterior Bilateral Throughout] 06/04/16 06/04/16 06/04/16 11:30 11:39 11:43 Temperature 98.4 F Pulse Rate 122 H 142 H 120 H Pulse Rate [ Anterior Bilateral Throughout] Pulse Rate [ From Monitor] Respiratory 25 H Rate Respiratory Rate [Anterior Bilateral Throughout] Respiratory Rate [ Generalized] Blood Pressure 85/43 85/43 85/43 O2 Sat by Pulse 98 Oximetry O2 Sat by Pulse Oximetry [ Anterior Bilateral Throughout] 06/04/16 11:59 Temperature Pulse Rate 118 H Pulse Rate [ Anterior Bilateral Throughout] Pulse Rate [ From Monitor] Respiratory Rate Respiratory Rate [Anterior Bilateral Throughout] Respiratory Rate [ Generalized] Blood Pressure 90/48 O2 Sat by Pulse Oximetry O2 Sat by Pulse Oximetry [ Anterior Bilateral Throughout] Constitutional: no acute distress, other (sedated) Eyes: non-icteric ENT: oropharynx moist Neck: supple, no lymphadenopathy Effort: mildly labored Ascultation: Bilateral: diminished breath sounds, rales (bases) Cardiovascular: regular rate and rhythm Gastrointestinal: normoactive bowel sounds, non-tender, other (distended, firm but not tense) Integumentary: normal Extremities: no cyanosis, no edema, pink and warm, pulses normal Neurologic: non-focal exam (grossly), unable to assess Psychiatric: other (sedated) CBC and BMP: 06/04/16 05:25 06/04/16 05:25 ABG, PT/INR, D-dimer: ABG POC ABG pH 7.310 (7.35-7.45) L 06/04/16 05:10 POC ABG pCO2 40.4 (35-45) 06/04/16 05:10 POC ABG pO2 73 (80-105) L 06/04/16 05:10 POC ABG HCO3 20.3 06/04/16 05:10 POC ABG Total CO2 22 06/04/16 05:10 POC ABG O2 Sat 93 06/04/16 05:10 PT/INR, D-dimer PT 15.5 Sec. (12.2-14.9) H 06/03/16 19:30 INR 1.24 (0.87-1.13) H 06/03/16 19:30 D-Dimer 239.48 ng/mlDDU (0-234) H 05/23/16 14:16 Abnormal lab findings: Abnormal Labs 05/23/16 05/23/16 05/23/16 06:02 09:35 11:22 WBC RBC Hgb Hct MCHC RDW Plt Count Seg Neuts % (Manual) Lymphocytes % (Manual) Nucleated RBC % Seg Neutrophils # Man Lymphocytes # (Manual) Monocytes # (Manual) PT INR Fibrinogen D-Dimer Heparin Anti-Xa Level POC ABG pH POC ABG pCO2 POC ABG pO2 Sodium Potassium Chloride Carbon Dioxide BUN Creatinine Glucose POC Glucose 174 H 232 H Hemoglobin A1c 6.4 H Lactic Acid Calcium Phosphorus Iron TIBC AST ALT Total Creatine Kinase C-Reactive Protein Total Protein Albumin Vitamin B12 Urine WBC (Auto) Urine Creatinine Crossmatch 05/23/16 05/23/16 05/23/16 14:16 16:07 22:23 WBC RBC Hgb Hct MCHC RDW Plt Count Seg Neuts % (Manual) Lymphocytes % (Manual) Nucleated RBC % Seg Neutrophils # Man Lymphocytes # (Manual) Monocytes # (Manual) PT INR Fibrinogen D-Dimer 239.48 H Heparin Anti-Xa Level POC ABG pH POC ABG pCO2 POC ABG pO2 Sodium Potassium Chloride Carbon Dioxide BUN Creatinine Glucose POC Glucose 126 H 171 H Hemoglobin A1c Lactic Acid Calcium Phosphorus Iron TIBC AST ALT Total Creatine Kinase C-Reactive Protein Total Protein Albumin Vitamin B12 Urine WBC (Auto) Urine Creatinine Crossmatch 05/24/16 05/24/16 05/24/16 08:08 08:08 08:19 WBC RBC 3.24 L Hgb 9.6 L Hct 28.6 L MCHC RDW 15.7 H Plt Count Seg Neuts % (Manual) 71.0 H Lymphocytes % (Manual) 7.0 L Nucleated RBC % Seg Neutrophils # Man Lymphocytes # (Manual) 0.8 L Monocytes # (Manual) PT INR Fibrinogen D-Dimer Heparin Anti-Xa Level POC ABG pH POC ABG pCO2 POC ABG pO2 Sodium 132 L Potassium Chloride 93.9 L Carbon Dioxide 18 L BUN 39 H Creatinine Glucose 166 H POC Glucose 173 H Hemoglobin A1c Lactic Acid Calcium Phosphorus Iron TIBC AST ALT Total Creatine Kinase C-Reactive Protein Total Protein Albumin Vitamin B12 Urine WBC (Auto) Urine Creatinine Crossmatch 05/24/16 05/24/16 05/24/16 11:55 17:15 22:18 WBC RBC Hgb Hct MCHC RDW Plt Count Seg Neuts % (Manual) Lymphocytes % (Manual) Nucleated RBC % Seg Neutrophils # Man Lymphocytes # (Manual) Monocytes # (Manual) PT INR Fibrinogen D-Dimer Heparin Anti-Xa Level POC ABG pH POC ABG pCO2 POC ABG pO2 Sodium Potassium Chloride Carbon Dioxide BUN Creatinine Glucose POC Glucose 210 H 147 H 163 H Hemoglobin A1c Lactic Acid Calcium Phosphorus Iron TIBC AST ALT Total Creatine Kinase C-Reactive Protein Total Protein Albumin Vitamin B12 Urine WBC (Auto) Urine Creatinine Crossmatch 05/25/16 05/25/16 05/25/16 08:43 13:38 14:19 WBC RBC Hgb 10.0 L Hct 30.4 L MCHC RDW Plt Count Seg Neuts % (Manual) Lymphocytes % (Manual) Nucleated RBC % Seg Neutrophils # Man Lymphocytes # (Manual) Monocytes # (Manual) PT INR Fibrinogen D-Dimer Heparin Anti-Xa Level POC ABG pH POC ABG pCO2 POC ABG pO2 Sodium Potassium Chloride Carbon Dioxide BUN Creatinine Glucose POC Glucose 177 H 180 H Hemoglobin A1c Lactic Acid Calcium Phosphorus Iron TIBC AST ALT Total Creatine Kinase C-Reactive Protein Total Protein Albumin Vitamin B12 Urine WBC (Auto) Urine Creatinine Crossmatch 05/25/16 05/25/16 05/25/16 16:16 16:25 21:32 WBC RBC Hgb Hct MCHC RDW Plt Count Seg Neuts % (Manual) Lymphocytes % (Manual) Nucleated RBC % Seg Neutrophils # Man Lymphocytes # (Manual) Monocytes # (Manual) PT INR Fibrinogen D-Dimer Heparin Anti-Xa Level POC ABG pH POC ABG pCO2 34.3 L POC ABG pO2 114 H Sodium Potassium Chloride Carbon Dioxide BUN Creatinine Glucose POC Glucose 193 H 183 H Hemoglobin A1c Lactic Acid Calcium Phosphorus Iron TIBC AST ALT Total Creatine Kinase C-Reactive Protein Total Protein Albumin Vitamin B12 Urine WBC (Auto) Urine Creatinine Crossmatch 05/26/16 05/26/16 05/26/16 00:06 07:42 10:17 WBC RBC Hgb Hct MCHC RDW Plt Count Seg Neuts % (Manual) Lymphocytes % (Manual) Nucleated RBC % Seg Neutrophils # Man Lymphocytes # (Manual) Monocytes # (Manual) PT INR Fibrinogen D-Dimer Heparin Anti-Xa Level 1.23 H 0.98 H POC ABG pH POC ABG pCO2 POC ABG pO2 Sodium Potassium Chloride Carbon Dioxide BUN Creatinine Glucose POC Glucose 206 H Hemoglobin A1c Lactic Acid Calcium Phosphorus Iron TIBC AST ALT Total Creatine Kinase C-Reactive Protein Total Protein Albumin Vitamin B12 Urine WBC (Auto) Urine Creatinine Crossmatch 05/26/16 05/26/16 05/26/16 11:57 12:38 13:52 WBC 19.7 H RBC 2.56 L Hgb 7.4 L Hct 23.2 L D MCHC RDW 15.8 H Plt Count Seg Neuts % (Manual) Lymphocytes % (Manual) Nucleated RBC % Seg Neutrophils # Man Lymphocytes # (Manual) Monocytes # (Manual) PT INR Fibrinogen D-Dimer Heparin Anti-Xa Level POC ABG pH 7.298 L POC ABG pCO2 27.8 L POC ABG pO2 132 H Sodium Potassium Chloride Carbon Dioxide BUN Creatinine Glucose POC Glucose 338 H Hemoglobin A1c Lactic Acid Calcium Phosphorus Iron TIBC AST ALT Total Creatine Kinase C-Reactive Protein Total Protein Albumin Vitamin B12 Urine WBC (Auto) Urine Creatinine Crossmatch 05/26/16 05/26/16 05/26/16 15:47 15:47 17:06 WBC RBC Hgb Hct MCHC RDW Plt Count Seg Neuts % (Manual) Lymphocytes % (Manual) Nucleated RBC % Seg Neutrophils # Man Lymphocytes # (Manual) Monocytes # (Manual) PT INR Fibrinogen D-Dimer Heparin Anti-Xa Level 1.35 H POC ABG pH 7.108 L POC ABG pCO2 POC ABG pO2 287 H Sodium Potassium Chloride Carbon Dioxide BUN Creatinine Glucose POC Glucose Hemoglobin A1c Lactic Acid 9.0 H* Calcium Phosphorus Iron TIBC AST ALT Total Creatine Kinase C-Reactive Protein Total Protein Albumin Vitamin B12 Urine WBC (Auto) Urine Creatinine Crossmatch 05/26/16 05/26/16 05/26/16 17:12 17:15 17:53 WBC RBC Hgb Hct MCHC RDW Plt Count Seg Neuts % (Manual) Lymphocytes % (Manual) Nucleated RBC % Seg Neutrophils # Man Lymphocytes # (Manual) Monocytes # (Manual) PT INR Fibrinogen D-Dimer Heparin Anti-Xa Level POC ABG pH 7.061 L POC ABG pCO2 47.3 H POC ABG pO2 35 L Sodium Potassium Chloride Carbon Dioxide BUN Creatinine Glucose POC Glucose 275 H Hemoglobin A1c Lactic Acid Calcium Phosphorus Iron TIBC AST ALT Total Creatine Kinase C-Reactive Protein Total Protein Albumin Vitamin B12 Urine WBC (Auto) Urine Creatinine Crossmatch See Detail 05/26/16 05/26/16 05/26/16 17:53 22:08 23:00 WBC RBC Hgb 6.7 L Hct 22.3 L MCHC RDW Plt Count Seg Neuts % (Manual) Lymphocytes % (Manual) Nucleated RBC % Seg Neutrophils # Man Lymphocytes # (Manual) Monocytes # (Manual) PT INR Fibrinogen D-Dimer Heparin Anti-Xa Level POC ABG pH 7.195 L POC ABG pCO2 POC ABG pO2 129 H Sodium Potassium Chloride Carbon Dioxide BUN Creatinine Glucose POC Glucose 250 H Hemoglobin A1c Lactic Acid Calcium Phosphorus Iron TIBC AST ALT Total Creatine Kinase C-Reactive Protein Total Protein Albumin Vitamin B12 Urine WBC (Auto) Urine Creatinine Crossmatch 05/27/16 05/27/16 05/27/16 00:26 01:00 05:13 WBC RBC Hgb 8.0 L Hct 24.6 L MCHC RDW Plt Count Seg Neuts % (Manual) Lymphocytes % (Manual) Nucleated RBC % Seg Neutrophils # Man Lymphocytes # (Manual) Monocytes # (Manual) PT INR Fibrinogen D-Dimer Heparin Anti-Xa Level POC ABG pH 7.273 L POC ABG pCO2 POC ABG pO2 62 L Sodium Potassium Chloride Carbon Dioxide BUN Creatinine Glucose POC Glucose Hemoglobin A1c Lactic Acid Calcium Phosphorus Iron TIBC AST ALT Total Creatine Kinase C-Reactive Protein Total Protein Albumin Vitamin B12 Urine WBC (Auto) Urine Creatinine Crossmatch 05/27/16 05/27/16 05/27/16 05:50 05:50 07:54 WBC RBC Hgb 7.6 L Hct 23.1 L MCHC RDW Plt Count Seg Neuts % (Manual) Lymphocytes % (Manual) Nucleated RBC % Seg Neutrophils # Man Lymphocytes # (Manual) Monocytes # (Manual) PT INR Fibrinogen D-Dimer Heparin Anti-Xa Level POC ABG pH POC ABG pCO2 POC ABG pO2 Sodium Potassium Chloride Carbon Dioxide BUN Creatinine Glucose POC Glucose 385 H Hemoglobin A1c Lactic Acid 4.0 H* Calcium Phosphorus Iron TIBC AST ALT Total Creatine Kinase C-Reactive Protein Total Protein Albumin Vitamin B12 Urine WBC (Auto) Urine Creatinine Crossmatch 05/27/16 05/27/16 05/27/16 08:30 11:57 16:04 WBC RBC Hgb Hct MCHC RDW Plt Count Seg Neuts % (Manual) Lymphocytes % (Manual) Nucleated RBC % Seg Neutrophils # Man Lymphocytes # (Manual) Monocytes # (Manual) PT INR Fibrinogen D-Dimer Heparin Anti-Xa Level POC ABG pH POC ABG pCO2 POC ABG pO2 Sodium Potassium Chloride 94.8 L Carbon Dioxide BUN 61 H Creatinine 2.9 H D Glucose 411 H POC Glucose 394 H 292 H Hemoglobin A1c Lactic Acid Calcium 6.3 L D Phosphorus Iron TIBC AST 7200 H ALT 4300 H Total Creatine Kinase C-Reactive Protein Total Protein 4.5 L D Albumin 3.0 L Vitamin B12 Urine WBC (Auto) Urine Creatinine Crossmatch 05/27/16 05/27/16 05/27/16 17:15 18:00 18:25 WBC RBC Hgb 7.5 L Hct 22.5 L MCHC RDW Plt Count Seg Neuts % (Manual) Lymphocytes % (Manual) Nucleated RBC % Seg Neutrophils # Man Lymphocytes # (Manual) Monocytes # (Manual) PT INR Fibrinogen D-Dimer Heparin Anti-Xa Level POC ABG pH POC ABG pCO2 POC ABG pO2 Sodium Potassium Chloride Carbon Dioxide BUN Creatinine Glucose POC Glucose Hemoglobin A1c Lactic Acid Calcium Phosphorus Iron TIBC AST 8515 H ALT 4517 H Total Creatine Kinase C-Reactive Protein Total Protein 4.6 L Albumin 2.8 L Vitamin B12 Urine WBC (Auto) Urine Creatinine 69.9 H Crossmatch 05/27/16 05/28/16 05/28/16 21:44 04:50 04:50 WBC 19.9 H RBC 2.66 L Hgb 7.6 L Hct 23.3 L MCHC RDW 15.4 H Plt Count 101 L Seg Neuts % (Manual) Lymphocytes % (Manual) Nucleated RBC % Seg Neutrophils # Man Lymphocytes # (Manual) Monocytes # (Manual) PT INR Fibrinogen D-Dimer Heparin Anti-Xa Level POC ABG pH POC ABG pCO2 POC ABG pO2 Sodium Potassium Chloride Carbon Dioxide BUN 79 H Creatinine 3.9 H Glucose 166 H POC Glucose 176 H Hemoglobin A1c Lactic Acid Calcium 6.3 L Phosphorus Iron TIBC AST 5609 H ALT 4060 H Total Creatine Kinase 929 H C-Reactive Protein Total Protein 4.8 L Albumin 2.9 L Vitamin B12 Urine WBC (Auto) Urine Creatinine Crossmatch 05/28/16 05/28/16 05/28/16 05:17 07:38 12:41 WBC RBC Hgb Hct MCHC RDW Plt Count Seg Neuts % (Manual) Lymphocytes % (Manual) Nucleated RBC % Seg Neutrophils # Man Lymphocytes # (Manual) Monocytes # (Manual) PT INR Fibrinogen D-Dimer Heparin Anti-Xa Level POC ABG pH POC ABG pCO2 POC ABG pO2 115 H Sodium Potassium Chloride Carbon Dioxide BUN Creatinine Glucose POC Glucose 168 H 173 H Hemoglobin A1c Lactic Acid Calcium Phosphorus Iron TIBC AST ALT Total Creatine Kinase C-Reactive Protein Total Protein Albumin Vitamin B12 Urine WBC (Auto) Urine Creatinine Crossmatch 05/28/16 05/28/16 05/29/16 16:12 21:45 04:15 WBC RBC Hgb Hct MCHC RDW Plt Count 71 L Seg Neuts % (Manual) Lymphocytes % (Manual) Nucleated RBC % Seg Neutrophils # Man Lymphocytes # (Manual) Monocytes # (Manual) PT INR Fibrinogen D-Dimer Heparin Anti-Xa Level POC ABG pH POC ABG pCO2 POC ABG pO2 Sodium Potassium Chloride Carbon Dioxide BUN Creatinine Glucose POC Glucose 210 H 221 H Hemoglobin A1c Lactic Acid Calcium Phosphorus Iron TIBC AST ALT Total Creatine Kinase C-Reactive Protein Total Protein Albumin Vitamin B12 Urine WBC (Auto) Urine Creatinine Crossmatch 05/29/16 05/29/16 05/29/16 04:15 06:14 07:28 WBC RBC Hgb Hct MCHC RDW Plt Count Seg Neuts % (Manual) Lymphocytes % (Manual) Nucleated RBC % Seg Neutrophils # Man Lymphocytes # (Manual) Monocytes # (Manual) PT INR Fibrinogen D-Dimer Heparin Anti-Xa Level POC ABG pH 7.285 L POC ABG pCO2 POC ABG pO2 63 L Sodium Potassium Chloride Carbon Dioxide 21 L BUN 98 H Creatinine 4.7 H Glucose 220 H POC Glucose 232 H Hemoglobin A1c Lactic Acid Calcium 5.8 L* Phosphorus Iron TIBC AST 1464 H ALT 2628 H Total Creatine Kinase 792 H C-Reactive Protein Total Protein 4.5 L Albumin 2.8 L Vitamin B12 Urine WBC (Auto) Urine Creatinine Crossmatch 05/29/16 05/29/16 05/29/16 11:33 11:58 15:22 WBC RBC Hgb Hct MCHC RDW Plt Count Seg Neuts % (Manual) Lymphocytes % (Manual) Nucleated RBC % Seg Neutrophils # Man Lymphocytes # (Manual) Monocytes # (Manual) PT INR Fibrinogen D-Dimer Heparin Anti-Xa Level POC ABG pH 7.291 L POC ABG pCO2 45.3 H POC ABG pO2 Sodium Potassium Chloride Carbon Dioxide BUN Creatinine Glucose POC Glucose 196 H 184 H Hemoglobin A1c Lactic Acid Calcium Phosphorus Iron TIBC AST ALT Total Creatine Kinase C-Reactive Protein Total Protein Albumin Vitamin B12 Urine WBC (Auto) Urine Creatinine Crossmatch 05/29/16 05/30/16 05/30/16 22:16 04:53 05:30 WBC RBC Hgb Hct MCHC RDW Plt Count Seg Neuts % (Manual) Lymphocytes % (Manual) Nucleated RBC % Seg Neutrophils # Man Lymphocytes # (Manual) Monocytes # (Manual) PT INR Fibrinogen D-Dimer Heparin Anti-Xa Level POC ABG pH 7.303 L POC ABG pCO2 POC ABG pO2 Sodium Potassium 5.5 H Chloride Carbon Dioxide BUN 113 H Creatinine 5.3 H Glucose 240 H POC Glucose 274 H Hemoglobin A1c Lactic Acid Calcium 5.5 L* Phosphorus 6.6 H Iron TIBC AST 380 H ALT 1647 H Total Creatine Kinase 2131 H C-Reactive Protein Total Protein 4.4 L Albumin 2.8 L Vitamin B12 Urine WBC (Auto) Urine Creatinine Crossmatch 05/30/16 05/30/16 05/30/16 05:30 06:01 08:25 WBC 15.4 H RBC 2.45 L Hgb 7.0 L Hct 22.0 L MCHC RDW 16.1 H Plt Count 51 L Seg Neuts % (Manual) Lymphocytes % (Manual) 9.0 L Nucleated RBC % 7.0 H Seg Neutrophils # Man 8.5 H Lymphocytes # (Manual) Monocytes # (Manual) PT INR Fibrinogen D-Dimer Heparin Anti-Xa Level POC ABG pH POC ABG pCO2 POC ABG pO2 Sodium Potassium Chloride Carbon Dioxide BUN Creatinine Glucose POC Glucose 268 H Hemoglobin A1c Lactic Acid Calcium Phosphorus Iron TIBC AST ALT Total Creatine Kinase C-Reactive Protein Total Protein Albumin Vitamin B12 Urine WBC (Auto) Urine Creatinine Crossmatch See Detail 05/30/16 05/30/16 05/30/16 12:04 18:54 22:23 WBC RBC Hgb Hct MCHC RDW Plt Count Seg Neuts % (Manual) Lymphocytes % (Manual) Nucleated RBC % Seg Neutrophils # Man Lymphocytes # (Manual) Monocytes # (Manual) PT INR Fibrinogen D-Dimer Heparin Anti-Xa Level POC ABG pH POC ABG pCO2 POC ABG pO2 Sodium Potassium Chloride Carbon Dioxide BUN Creatinine Glucose POC Glucose 251 H 210 H 199 H Hemoglobin A1c Lactic Acid Calcium Phosphorus Iron TIBC AST ALT Total Creatine Kinase C-Reactive Protein Total Protein Albumin Vitamin B12 Urine WBC (Auto) Urine Creatinine Crossmatch 05/31/16 05/31/16 05/31/16 05:50 05:50 06:19 WBC 22.0 H RBC 3.61 L Hgb 10.3 L D Hct 31.9 L D MCHC RDW 15.6 H Plt Count 42 L Seg Neuts % (Manual) Lymphocytes % (Manual) Nucleated RBC % Seg Neutrophils # Man Lymphocytes # (Manual) Monocytes # (Manual) PT INR Fibrinogen D-Dimer Heparin Anti-Xa Level POC ABG pH 7.320 L POC ABG pCO2 45.2 H POC ABG pO2 Sodium 134 L Potassium 5.1 H Chloride 97.0 L Carbon Dioxide BUN 77 H Creatinine 3.6 H Glucose 225 H POC Glucose Hemoglobin A1c Lactic Acid Calcium 6.0 L Phosphorus Iron TIBC AST 133 H ALT 1165 H Total Creatine Kinase 1486 H C-Reactive Protein Total Protein 4.5 L Albumin 2.7 L Vitamin B12 Urine WBC (Auto) Urine Creatinine Crossmatch 05/31/16 05/31/16 05/31/16 07:42 12:13 12:34 WBC RBC Hgb Hct MCHC RDW Plt Count Seg Neuts % (Manual) Lymphocytes % (Manual) Nucleated RBC % Seg Neutrophils # Man Lymphocytes # (Manual) Monocytes # (Manual) PT INR Fibrinogen D-Dimer Heparin Anti-Xa Level POC ABG pH 7.298 L POC ABG pCO2 POC ABG pO2 Sodium Potassium Chloride Carbon Dioxide BUN Creatinine Glucose POC Glucose 250 H 209 H Hemoglobin A1c Lactic Acid Calcium Phosphorus Iron TIBC AST ALT Total Creatine Kinase C-Reactive Protein Total Protein Albumin Vitamin B12 Urine WBC (Auto) Urine Creatinine Crossmatch 05/31/16 05/31/16 05/31/16 13:45 17:43 21:38 WBC RBC Hgb Hct MCHC RDW Plt Count Seg Neuts % (Manual) Lymphocytes % (Manual) Nucleated RBC % Seg Neutrophils # Man Lymphocytes # (Manual) Monocytes # (Manual) PT INR Fibrinogen D-Dimer Heparin Anti-Xa Level POC ABG pH POC ABG pCO2 POC ABG pO2 Sodium Potassium Chloride Carbon Dioxide BUN Creatinine Glucose POC Glucose 242 H 248 H Hemoglobin A1c Lactic Acid Calcium Phosphorus Iron TIBC AST ALT Total Creatine Kinase C-Reactive Protein 4.10 H Total Protein Albumin Vitamin B12 Urine WBC (Auto) Urine Creatinine Crossmatch 06/01/16 06/01/16 06/01/16 03:35 03:35 04:16 WBC 28.8 H RBC 3.51 L Hgb 10.0 L Hct 31.2 L MCHC RDW 15.3 H Plt Count 42 L Seg Neuts % (Manual) 74.0 H Lymphocytes % (Manual) 3.0 L Nucleated RBC % 2.0 H Seg Neutrophils # Man 21.3 H Lymphocytes # (Manual) 0.9 L Monocytes # (Manual) 1.7 H PT INR Fibrinogen D-Dimer Heparin Anti-Xa Level POC ABG pH 7.332 L POC ABG pCO2 POC ABG pO2 56 L Sodium Potassium Chloride Carbon Dioxide 21 L BUN 97 H Creatinine 3.9 H Glucose 206 H POC Glucose Hemoglobin A1c Lactic Acid Calcium 5.4 L* Phosphorus Iron TIBC AST 70 H ALT 732 H Total Creatine Kinase C-Reactive Protein Total Protein 4.3 L Albumin 2.4 L Vitamin B12 Urine WBC (Auto) Urine Creatinine Crossmatch 06/01/16 06/01/16 06/01/16 07:31 11:38 15:23 WBC RBC Hgb Hct MCHC RDW Plt Count Seg Neuts % (Manual) Lymphocytes % (Manual) Nucleated RBC % Seg Neutrophils # Man Lymphocytes # (Manual) Monocytes # (Manual) PT INR Fibrinogen D-Dimer Heparin Anti-Xa Level POC ABG pH POC ABG pCO2 POC ABG pO2 Sodium Potassium Chloride Carbon Dioxide BUN Creatinine Glucose POC Glucose 232 H 230 H 239 H Hemoglobin A1c Lactic Acid Calcium Phosphorus Iron TIBC AST ALT Total Creatine Kinase C-Reactive Protein Total Protein Albumin Vitamin B12 Urine WBC (Auto) Urine Creatinine Crossmatch 06/01/16 06/02/16 06/02/16 17:15 00:32 03:17 WBC RBC Hgb Hct MCHC RDW Plt Count Seg Neuts % (Manual) Lymphocytes % (Manual) Nucleated RBC % Seg Neutrophils # Man Lymphocytes # (Manual) Monocytes # (Manual) PT INR Fibrinogen D-Dimer Heparin Anti-Xa Level POC ABG pH 7.341 L POC ABG pCO2 POC ABG pO2 Sodium Potassium Chloride Carbon Dioxide BUN Creatinine Glucose POC Glucose 256 H Hemoglobin A1c Lactic Acid Calcium Phosphorus Iron TIBC AST ALT Total Creatine Kinase C-Reactive Protein Total Protein Albumin Vitamin B12 Urine WBC (Auto) 63.0 H Urine Creatinine Crossmatch 06/02/16 06/02/16 06/02/16 04:00 04:00 07:51 WBC 37.1 H RBC 3.18 L Hgb 9.2 L Hct 28.5 L MCHC RDW Plt Count 49 L Seg Neuts % (Manual) Lymphocytes % (Manual) Nucleated RBC % Seg Neutrophils # Man Lymphocytes # (Manual) Monocytes # (Manual) PT INR Fibrinogen D-Dimer Heparin Anti-Xa Level POC ABG pH POC ABG pCO2 POC ABG pO2 Sodium Potassium Chloride Carbon Dioxide BUN 124 H Creatinine 5.0 H Glucose 242 H POC Glucose 245 H Hemoglobin A1c Lactic Acid Calcium 5.3 L* Phosphorus Iron TIBC AST 50 H ALT 458 H Total Creatine Kinase C-Reactive Protein Total Protein 4.1 L Albumin 2.3 L Vitamin B12 Urine WBC (Auto) Urine Creatinine Crossmatch 06/02/16 06/02/16 06/02/16 11:41 16:10 23:57 WBC RBC Hgb Hct MCHC RDW Plt Count Seg Neuts % (Manual) Lymphocytes % (Manual) Nucleated RBC % Seg Neutrophils # Man Lymphocytes # (Manual) Monocytes # (Manual) PT INR Fibrinogen D-Dimer Heparin Anti-Xa Level POC ABG pH POC ABG pCO2 POC ABG pO2 Sodium Potassium Chloride Carbon Dioxide BUN Creatinine Glucose POC Glucose 254 H 215 H 162 H Hemoglobin A1c Lactic Acid Calcium Phosphorus Iron TIBC AST ALT Total Creatine Kinase C-Reactive Protein Total Protein Albumin Vitamin B12 Urine WBC (Auto) Urine Creatinine Crossmatch 06/03/16 06/03/16 06/03/16 04:50 04:50 13:40 WBC 37.6 H RBC 2.72 L Hgb 7.8 L Hct 24.5 L MCHC RDW Plt Count 48 L Seg Neuts % (Manual) 96.0 H Lymphocytes % (Manual) 1.5 L Nucleated RBC % Seg Neutrophils # Man 36.1 H Lymphocytes # (Manual) 0.6 L Monocytes # (Manual) PT INR Fibrinogen D-Dimer Heparin Anti-Xa Level POC ABG pH POC ABG pCO2 POC ABG pO2 Sodium Potassium Chloride Carbon Dioxide BUN 76 H Creatinine 3.5 H Glucose POC Glucose Hemoglobin A1c Lactic Acid Calcium 5.2 L* Phosphorus Iron TIBC AST ALT 307 H Total Creatine Kinase C-Reactive Protein Total Protein 4.0 L Albumin 2.3 L Vitamin B12 Urine WBC (Auto) Urine Creatinine Crossmatch See Detail 06/03/16 06/03/16 06/03/16 19:30 19:30 19:30 WBC 38.3 H RBC 2.87 L Hgb 8.3 L Hct 25.5 L MCHC RDW 15.3 H Plt Count 59 L Seg Neuts % (Manual) 97.0 H Lymphocytes % (Manual) 1.0 L Nucleated RBC % 2.0 H Seg Neutrophils # Man 37.2 H Lymphocytes # (Manual) 0.4 L Monocytes # (Manual) PT 15.5 H INR 1.24 H Fibrinogen 191 L D-Dimer Heparin Anti-Xa Level POC ABG pH POC ABG pCO2 POC ABG pO2 Sodium Potassium Chloride Carbon Dioxide BUN Creatinine Glucose POC Glucose Hemoglobin A1c Lactic Acid Calcium Phosphorus Iron 31 L TIBC 151 L AST ALT Total Creatine Kinase C-Reactive Protein Total Protein Albumin Vitamin B12 Urine WBC (Auto) Urine Creatinine Crossmatch 06/03/16 06/03/16 06/04/16 19:30 23:28 05:10 WBC RBC Hgb Hct MCHC RDW Plt Count Seg Neuts % (Manual) Lymphocytes % (Manual) Nucleated RBC % Seg Neutrophils # Man Lymphocytes # (Manual) Monocytes # (Manual) PT INR Fibrinogen D-Dimer Heparin Anti-Xa Level POC ABG pH 7.310 L POC ABG pCO2 POC ABG pO2 73 L Sodium Potassium Chloride Carbon Dioxide BUN Creatinine Glucose POC Glucose 118 H Hemoglobin A1c Lactic Acid Calcium Phosphorus Iron TIBC AST ALT Total Creatine Kinase C-Reactive Protein Total Protein Albumin Vitamin B12 1851 H Urine WBC (Auto) Urine Creatinine Crossmatch 06/04/16 06/04/16 06/04/16 05:25 05:25 05:25 WBC 35.9 H RBC 2.61 L Hgb 7.4 L Hct 23.7 L MCHC 31 L RDW 15.4 H Plt Count 63 L Seg Neuts % (Manual) 93.0 H Lymphocytes % (Manual) 0 L Nucleated RBC % 3.0 H Seg Neutrophils # Man 33.4 H Lymphocytes # (Manual) 0.0 L Monocytes # (Manual) PT INR Fibrinogen 157 L D-Dimer Heparin Anti-Xa Level POC ABG pH POC ABG pCO2 POC ABG pO2 Sodium Potassium 5.5 H Chloride Carbon Dioxide 18 L BUN 95 H Creatinine 4.3 H Glucose 119 H POC Glucose Hemoglobin A1c Lactic Acid Calcium 5.0 L* Phosphorus Iron TIBC AST 57 H ALT 214 H Total Creatine Kinase C-Reactive Protein Total Protein 3.5 L Albumin 2.0 L Vitamin B12 Urine WBC (Auto) Urine Creatinine Crossmatch 06/04/16 06/04/16 05:46 11:24 WBC RBC Hgb Hct MCHC RDW Plt Count Seg Neuts % (Manual) Lymphocytes % (Manual) Nucleated RBC % Seg Neutrophils # Man Lymphocytes # (Manual) Monocytes # (Manual) PT INR Fibrinogen D-Dimer Heparin Anti-Xa Level POC ABG pH POC ABG pCO2 POC ABG pO2 Sodium Potassium Chloride Carbon Dioxide BUN Creatinine Glucose POC Glucose 136 H 184 H Hemoglobin A1c Lactic Acid Calcium Phosphorus Iron TIBC AST ALT Total Creatine Kinase C-Reactive Protein Total Protein Albumin Vitamin B12 Urine WBC (Auto) Urine Creatinine Crossmatch
[2016-06-04] MEDS: LEVEMIR SUB-Q SCH (12:38)
[2016-06-04] MEDS: DIFLUCAN 100 ML IV SCH (13:00)
--- NOTE | 2016-06-04 13:09 | Progress Note ---
Assessment and Plan Pt status quo. lntubated. Abd exam - unchanged still hypotensive & tachycardic h/h down CT abd - large retroperitoneal hematoma. no evidence of sbo low plts, elevated PT rec 2 unit prbc transfusion SENG vit K consider plt transfusion as per [employer] & hematology Selected Entries 06/04/16 06/04/16 12:32 12:45 Temperature 98.3 F Pulse Rate 115 H Blood Pressure 83/36 Laboratory Tests 06/03/16 06/04/16 06/04/16 19:30 05:25 05:25 WBC 35.9 H Hgb 7.4 L Hct 23.7 L PT 15.5 H INR 1.24 H APTT 25.5 Fibrinogen 157 L Objective Vital Signs - 12hr 06/04/16 06/04/16 06/04/16 01:15 01:30 01:37 Temperature Pulse Rate 129 H 123 H 121 H Pulse Rate [ Anterior Bilateral Throughout] Pulse Rate [ From Monitor] Respiratory 15 15 24 Rate Respiratory Rate [Anterior Bilateral Throughout] Respiratory Rate [ Generalized] Blood Pressure 121/58 125/57 125/57 O2 Sat by Pulse 98 98 98 Oximetry O2 Sat by Pulse Oximetry [ Anterior Bilateral Throughout] 06/04/16 06/04/16 06/04/16 01:45 01:47 02:00 Temperature Pulse Rate 124 H 126 H 129 H Pulse Rate [ Anterior Bilateral Throughout] Pulse Rate [ From Monitor] Respiratory 20 21 26 H Rate Respiratory Rate [Anterior Bilateral Throughout] Respiratory Rate [ Generalized] Blood Pressure 127/59 127/59 127/59 O2 Sat by Pulse 99 98 99 Oximetry O2 Sat by Pulse Oximetry [ Anterior Bilateral Throughout] 06/04/16 06/04/16 06/04/16 02:15 02:30 02:40 Temperature Pulse Rate 130 H 130 H Pulse Rate [ 110 H Anterior Bilateral Throughout] Pulse Rate [ From Monitor] Respiratory 18 18 Rate Respiratory 26 H Rate [Anterior Bilateral Throughout] Respiratory Rate [ Generalized] Blood Pressure 112/63 123/60 O2 Sat by Pulse 98 98 Oximetry O2 Sat by Pulse Oximetry [ Anterior Bilateral Throughout] 06/04/16 06/04/16 06/04/16 02:45 02:46 03:00 Temperature Pulse Rate 126 H 126 H 128 H Pulse Rate [ 115 H Anterior Bilateral Throughout] Pulse Rate [ From Monitor] Respiratory 21 22 14 Rate Respiratory 28 H Rate [Anterior Bilateral Throughout] Respiratory Rate [ Generalized] Blood Pressure 113/53 123/60 106/61 O2 Sat by Pulse 98 98 98 Oximetry O2 Sat by Pulse Oximetry [ Anterior Bilateral Throughout] 06/04/16 06/04/16 06/04/16 03:01 03:15 03:30 Temperature Pulse Rate 126 H 128 H 128 H Pulse Rate [ Anterior Bilateral Throughout] Pulse Rate [ From Monitor] Respiratory 15 17 17 Rate Respiratory Rate [Anterior Bilateral Throughout] Respiratory Rate [ Generalized] Blood Pressure 106/61 120/59 114/52 O2 Sat by Pulse 98 99 98 Oximetry O2 Sat by Pulse Oximetry [ Anterior Bilateral Throughout] 06/04/16 06/04/16 06/04/16 03:45 04:00 04:07 Temperature Pulse Rate 123 H 123 H 125 H Pulse Rate [ Anterior Bilateral Throughout] Pulse Rate [ 111 H From Monitor] Respiratory 18 20 18 Rate Respiratory Rate [Anterior Bilateral Throughout] Respiratory Rate [ Generalized] Blood Pressure 111/49 115/62 115/62 O2 Sat by Pulse 99 97 98 Oximetry O2 Sat by Pulse Oximetry [ Anterior Bilateral Throughout] 06/04/16 06/04/16 06/04/16 04:15 04:30 04:32 Temperature 100.8 F H Pulse Rate 124 H 124 H Pulse Rate [ Anterior Bilateral Throughout] Pulse Rate [ From Monitor] Respiratory 22 19 Rate Respiratory Rate [Anterior Bilateral Throughout] Respiratory Rate [ Generalized] Blood Pressure 119/54 125/62 O2 Sat by Pulse 99 99 Oximetry O2 Sat by Pulse Oximetry [ Anterior Bilateral Throughout] 06/04/16 06/04/16 06/04/16 04:45 04:57 05:00 Temperature Pulse Rate 120 H 127 H 131 H Pulse Rate [ Anterior Bilateral Throughout] Pulse Rate [ From Monitor] Respiratory 25 H 19 Rate Respiratory Rate [Anterior Bilateral Throughout] Respiratory Rate [ Generalized] Blood Pressure 121/55 121/55 118/58 O2 Sat by Pulse 98 99 98 Oximetry O2 Sat by Pulse Oximetry [ Anterior Bilateral Throughout] 06/04/16 06/04/16 06/04/16 05:15 05:30 05:45 Temperature Pulse Rate 122 H 121 H 126 H Pulse Rate [ Anterior Bilateral Throughout] Pulse Rate [ From Monitor] Respiratory 16 18 15 Rate Respiratory Rate [Anterior Bilateral Throughout] Respiratory Rate [ Generalized] Blood Pressure 116/50 111/49 112/51 O2 Sat by Pulse 99 99 99 Oximetry O2 Sat by Pulse Oximetry [ Anterior Bilateral Throughout] 06/04/16 06/04/16 06/04/16 06:00 06:01 06:15 Temperature Pulse Rate 121 H 125 H 122 H Pulse Rate [ Anterior Bilateral Throughout] Pulse Rate [ From Monitor] Respiratory 25 H 25 H Rate Respiratory Rate [Anterior Bilateral Throughout] Respiratory Rate [ Generalized] Blood Pressure O2 Sat by Pulse 99 100 Oximetry O2 Sat by Pulse Oximetry [ Anterior Bilateral Throughout] 06/04/16 06/04/16 06/04/16 06:30 06:45 06:47 Temperature Pulse Rate 119 H 122 H 122 H Pulse Rate [ Anterior Bilateral Throughout] Pulse Rate [ From Monitor] Respiratory 25 H 25 H 25 H Rate Respiratory Rate [Anterior Bilateral Throughout] Respiratory Rate [ Generalized] Blood Pressure 80/41 88/49 88/49 O2 Sat by Pulse 98 93 94 Oximetry O2 Sat by Pulse Oximetry [ Anterior Bilateral Throughout] 06/04/16 06/04/16 06/04/16 07:00 07:15 07:30 Temperature Pulse Rate 124 H 112 H 116 H Pulse Rate [ Anterior Bilateral Throughout] Pulse Rate [ From Monitor] Respiratory 24 26 H 25 H Rate Respiratory Rate [Anterior Bilateral Throughout] Respiratory Rate [ Generalized] Blood Pressure 89/46 88/43 97/52 O2 Sat by Pulse 96 97 97 Oximetry O2 Sat by Pulse Oximetry [ Anterior Bilateral Throughout] 06/04/16 06/04/16 06/04/16 07:42 07:43 07:45 Temperature Pulse Rate 117 H 117 H Pulse Rate [ 117 H Anterior Bilateral Throughout] Pulse Rate [ From Monitor] Respiratory 21 Rate Respiratory 24 Rate [Anterior Bilateral Throughout] Respiratory Rate [ Generalized] Blood Pressure 97/52 101/43 O2 Sat by Pulse 97 98 Oximetry O2 Sat by Pulse Oximetry [ Anterior Bilateral Throughout] 06/04/16 06/04/16 06/04/16 07:51 07:55 08:00 Temperature 99.4 F Pulse Rate 115 H Pulse Rate [ 96 H Anterior Bilateral Throughout] Pulse Rate [ 114 H From Monitor] Respiratory 20 Rate Respiratory 24 Rate [Anterior Bilateral Throughout] Respiratory Rate [ Generalized] Blood Pressure 92/44 O2 Sat by Pulse 100 Oximetry O2 Sat by Pulse Oximetry [ Anterior Bilateral Throughout] 06/04/16 06/04/16 06/04/16 08:15 08:31 08:45 Temperature Pulse Rate 112 H 115 H 119 H Pulse Rate [ Anterior Bilateral Throughout] Pulse Rate [ From Monitor] Respiratory 25 H 25 H 22 Rate Respiratory Rate [Anterior Bilateral Throughout] Respiratory Rate [ Generalized] Blood Pressure 78/36 83/38 99/51 O2 Sat by Pulse 100 99 99 Oximetry O2 Sat by Pulse Oximetry [ Anterior Bilateral Throughout] 06/04/16 06/04/16 06/04/16 09:01 09:15 09:28 Temperature Pulse Rate 140 H 141 H 133 H Pulse Rate [ Anterior Bilateral Throughout] Pulse Rate [ From Monitor] Respiratory 25 H 28 H 17 Rate Respiratory Rate [Anterior Bilateral Throughout] Respiratory Rate [ Generalized] Blood Pressure 152/66 176/57 152/66 O2 Sat by Pulse 99 99 98 Oximetry O2 Sat by Pulse Oximetry [ Anterior Bilateral Throughout] 06/04/16 06/04/16 06/04/16 09:31 09:35 09:45 Temperature 99.4 F Pulse Rate 132 H 126 H 135 H Pulse Rate [ Anterior Bilateral Throughout] Pulse Rate [ From Monitor] Respiratory 19 25 H 20 Rate Respiratory Rate [Anterior Bilateral Throughout] Respiratory Rate [ Generalized] Blood Pressure 123/47 123/47 129/46 O2 Sat by Pulse 98 98 98 Oximetry O2 Sat by Pulse 99 Oximetry [ Anterior Bilateral Throughout] 06/04/16 06/04/16 06/04/16 09:53 10:00 10:15 Temperature Pulse Rate 130 H 138 H 142 H Pulse Rate [ Anterior Bilateral Throughout] Pulse Rate [ From Monitor] Respiratory 20 17 20 Rate Respiratory Rate [Anterior Bilateral Throughout] Respiratory 26 H Rate [ Generalized] Blood Pressure 129/46 115/43 91/46 O2 Sat by Pulse 99 98 100 Oximetry O2 Sat by Pulse Oximetry [ Anterior Bilateral Throughout] 06/04/16 06/04/16 06/04/16 10:30 10:45 10:59 Temperature Pulse Rate 131 H 125 H 124 H Pulse Rate [ Anterior Bilateral Throughout] Pulse Rate [ From Monitor] Respiratory 15 Rate Respiratory Rate [Anterior Bilateral Throughout] Respiratory Rate [ Generalized] Blood Pressure 94/40 85/44 85/44 O2 Sat by Pulse 99 98 Oximetry O2 Sat by Pulse Oximetry [ Anterior Bilateral Throughout] 06/04/16 06/04/16 06/04/16 11:02 11:15 11:30 Temperature Pulse Rate 145 H 143 H 122 H Pulse Rate [ Anterior Bilateral Throughout] Pulse Rate [ From Monitor] Respiratory Rate Respiratory Rate [Anterior Bilateral Throughout] Respiratory Rate [ Generalized] Blood Pressure 93/43 97/37 85/43 O2 Sat by Pulse Oximetry O2 Sat by Pulse Oximetry [ Anterior Bilateral Throughout] 06/04/16 06/04/16 06/04/16 11:39 11:43 11:54 Temperature 98.4 F 98.4 F Pulse Rate 142 H 120 H 117 H Pulse Rate [ Anterior Bilateral Throughout] Pulse Rate [ From Monitor] Respiratory 25 H 25 H Rate Respiratory Rate [Anterior Bilateral Throughout] Respiratory Rate [ Generalized] Blood Pressure 85/43 85/43 90/48 O2 Sat by Pulse 98 99 Oximetry O2 Sat by Pulse Oximetry [ Anterior Bilateral Throughout] 06/04/16 06/04/16 06/04/16 11:59 12:01 12:14 Temperature 98.4 F 98.0 F Pulse Rate 118 H 126 H Pulse Rate [ Anterior Bilateral Throughout] Pulse Rate [ From Monitor] Respiratory 21 Rate Respiratory Rate [Anterior Bilateral Throughout] Respiratory Rate [ Generalized] Blood Pressure 90/48 97/46 O2 Sat by Pulse 99 Oximetry O2 Sat by Pulse Oximetry [ Anterior Bilateral Throughout] 06/04/16 06/04/16 06/04/16 12:32 12:33 12:45 Temperature 98.3 F Pulse Rate 116 H 115 H 115 H Pulse Rate [ Anterior Bilateral Throughout] Pulse Rate [ From Monitor] Respiratory 17 Rate Respiratory Rate [Anterior Bilateral Throughout] Respiratory Rate [ Generalized] Blood Pressure 97/46 99/42 83/36 O2 Sat by Pulse 99 Oximetry O2 Sat by Pulse Oximetry [ Anterior Bilateral Throughout] - Labs 06/04/16 05:25 06/04/16 05:25 Diabetes panel 06/04/16 Range/Units 05:25 Sodium 142 (137-145) mmol/L Potassium 5.5 H (3.6-5.0) mmol/L Chloride 105.3 (98-107) mmol/L Carbon Dioxide 18 L (22-30) mmol/L BUN 95 H (9-20) mg/dL Creatinine 4.3 H (0.8-1.5) mg/dL Glucose 119 H (75-100) mg/dL Calcium 5.0 L* (8.4-10.2) mg/dL AST 57 H (5-40) units/L ALT 214 H (7-56) units/L Alkaline Phosphatase 67 (35-129) units/L Total Protein 3.5 L (6.3-8.2) g/dL Albumin 2.0 L (3.9-5) g/dL Calcium panel 06/04/16 Range/Units 05:25 Calcium 5.0 L* (8.4-10.2) mg/dL Albumin 2.0 L (3.9-5) g/dL Pituitary panel 06/04/16 Range/Units 05:25 Sodium 142 (137-145) mmol/L Potassium 5.5 H (3.6-5.0) mmol/L Chloride 105.3 (98-107) mmol/L Carbon Dioxide 18 L (22-30) mmol/L BUN 95 H (9-20) mg/dL Creatinine 4.3 H (0.8-1.5) mg/dL Glucose 119 H (75-100) mg/dL Calcium 5.0 L* (8.4-10.2) mg/dL Adrenal panel 06/04/16 Range/Units 05:25 Sodium 142 (137-145) mmol/L Potassium 5.5 H (3.6-5.0) mmol/L Chloride 105.3 (98-107) mmol/L Carbon Dioxide 18 L (22-30) mmol/L BUN 95 H (9-20) mg/dL Creatinine 4.3 H (0.8-1.5) mg/dL Glucose 119 H (75-100) mg/dL Calcium 5.0 L* (8.4-10.2) mg/dL Total Bilirubin 0.4 (0.1-1.2) mg/dL AST 57 H (5-40) units/L ALT 214 H (7-56) units/L Alkaline Phosphatase 67 (35-129) units/L Total Protein 3.5 L (6.3-8.2) g/dL Albumin 2.0 L (3.9-5) g/dL
[2016-06-04] MEDS ORDERED: PITRESSin 20 UNIT in NACL 0.9% 100 ML IV SCH (14:00)
[2016-06-04] MEDS: PROTONIX IV SCH (14:14)
[2016-06-04] MEDS: SINGULAIR PO SCH (18:18)
--- NOTE | 2016-06-04 18:23 | Consultation ---
History of Present Illness - Reason for Consult Consult date: 06/04/16 Right retroperitoneal bleed - History of Present Illness 80-year-old white male with a known history of COPD on home O2, HTN, HLD, obesity, and DM2, who presents for admission to [facility] on 05/22/2017 with worsening shortness of breath and probable COPD exacerbation. During his hospitalization he has been intubated, has multiple possible infectious related issues, has ileus versus small bowel obstruction, acute renal failure requiring vascath placement and was recently found to have a retroperitoneal bleed requiring 5 unit packed red blood cell transfusion. Past History Past Medical History: COPD, diabetes, hypertension, hyperlipidemia, other ( obesity) Past Surgical History: Other (Cannot obtain, patient intubated) Social history: other (Cannot obtain, patient intubated) Family history: other (Cannot obtain, patient intubated) Medications and Allergies Allergies Allergy/AdvReac Type Severity Reaction Status Date / Time No Known Allergies Allergy Unverified 05/22/16 14:00 Home Medications Medication Instructions Recorded Confirmed Last Taken Type Albuterol Sulfate [Ventolin HFA] 2 puff IH Q4H PRN 05/22/16 05/22/16 05/21/16 History Alendronate Sodium [Fosamax] 70 mg PO QWEEK 05/22/16 05/22/16 05/21/16 History Aspirin [Aspirin TAB] 325 mg PO QDAY 05/22/16 05/22/16 05/21/16 History Diltiazem HCl [Diltiazem ER] 120 mg PO BID 05/22/16 05/22/16 05/21/16 History Ergocalciferol [Vitamin D2] 1 cap PO QWEEK 05/22/16 05/22/16 05/21/16 History Fluticasone [Flonase] 2 spray NS QDAY 05/22/16 05/22/16 05/21/16 History Fluticasone/Salmeterol [Advair 1 puff IH BID 05/22/16 05/22/16 05/21/16 History Diskus 500-50 mcg] Ipratropium/Albuterol Sulfate 1 ampul IH Q6HR PRN 05/22/16 05/22/16 05/21/16 History [Duoneb 0.5 mg-3 mg/3 ml Soln] Ketoconazole 2% [Nizoral] 1 applicatio TP QDAY 05/22/16 05/22/16 05/21/16 History Loratadine [Claritin] 10 mg PO DAILY 05/22/16 05/22/16 05/21/16 History Losartan [Cozaar] 50 mg PO QDAY 05/22/16 05/22/16 05/21/16 History Meclizine HCl [Meclizine CHEW] 25 mg PO QDAY PRN 05/22/16 05/22/16 05/21/16 History Montelukast [Singulair] 10 mg PO QPM 05/22/16 05/22/16 05/21/16 History Pravastatin Sodium [Pravastatin] 40 mg PO QHS 05/22/16 05/22/16 05/21/16 History Triamter/Hctz 37.5-25 mg 1 tab PO QDAY 05/22/16 05/22/16 05/21/16 History [Maxzide-25] metFORMIN [Glucophage] 500 mg PO BID 05/22/16 05/22/16 05/21/16 History Active Meds: Active Medications Acetaminophen (Tylenol) 650 mg PO Q4H PRN PRN Reason: Pain MILD(1-3)/Fever >100.5/PÉREZ Last Admin: 06/01/16 17:35 Dose: 650 mg Acetaminophen (Tylenol) 650 mg VT Q6H PRN PRN Reason: Pain, Mild (1-3), T >100.5 Albumin Human (Alburx 25% (Albumin)) 25 gm IV RED PRN PRN Reason: Hypotension Last Admin: 06/04/16 10:28 Dose: 25 gm Albuterol (Proventil) 2.5 mg IH Q4HRT PRN PRN Reason: Shortness Of Breath Albuterol/Ipratropium (Duoneb 0.5 Mg-3 Mg/3 Ml Soln) 1 ampul IH Q6HRT ARLYN Last Admin: 06/04/16 14:37 Dose: 1 ampul Lipase/Protease/Amylase (Denise Hernandez 10,500 Unit) 1 each FEEDTUBE PRN PRN PRN Reason: For Clogged Feeding Tube Bisacodyl (Dulcolax) 10 mg VT QDAY PRN PRN Reason: Constipation unrelieved by MOM Budesonide (Pulmicort) 0.5 mg IH Q12HRT ARLYN Last Admin: 06/04/16 07:41 Dose: 0.5 mg Dextrose (D50w (25gm)) 50 ml IV PRN PRN PRN Reason: Hypoglycemia Epoetin Ld (Epogen) 20,000 unit IV RED PRN PRN Reason: hemoglobin Last Admin: 06/04/16 11:51 Dose: 20,000 unit Ergocalciferol (Vitamin D2) 50,000 unit PO Sa ARLYN Last Admin: 05/30/16 09:53 Dose: 50,000 unit Heparin Sodium (Porcine) (Heparin) 5,000 unit IV RED PRN PRN Reason: hemodialysis Last Admin: 06/04/16 13:14 Dose: 5,000 unit Hydrophilic Ointment (Vaseline Lip Therapy) 1 applic TP Q2HR PRN PRN Reason: Dry Lips Fentanyl Citrate (Fentanyl Drip Premix) 100 mls @ 4.1 mls/hr IV TITR ARLYN; 1 MCG /KG/HR PRN Reason: Protocol Last Titration: 06/04/16 09:25 Dose: 2 mcg/kg/hr Midazolam HCl (Versed/Ns 100mg/100ml) 100 mls @ 1 mls/hr IV TITR ARLYN; 1 MG/HR PRN Reason: Protocol Last Admin: 06/01/16 18:42 Dose: 1 mls/hr Sodium Chloride (Nacl 0.9% 1000 Ml) 1,000 mls @ 75 mls/hr IV DIRECT ARLYN Last Admin: 06/03/16 21:00 Dose: 75 mls/hr Norepinephrine 8 mg/ Sodium (Chloride) 250 mls @ 3.75 mls/hr IV TITR ARLYN; 2 MCG /MIN PRN Reason: Protocol Last Titration: 06/04/16 11:35 Dose: 5 mcg/min Piperacillin Sod/Tazobactam Sod (Zosyn/Ns 2.25 Gm/50ml) 50 mls @ 100 mls/hr IV Q8HR ARLYN Last Admin: 06/04/16 14:15 Dose: 100 mls/hr Metronidazole (Flagyl 500 Mg/100 Ml) 100 mls @ 100 mls/hr IV Q8HR ARLYN Last Admin: 06/04/16 14:13 Dose: 100 mls/hr Fluconazole (Diflucan) 100 mls @ 100 mls/hr IV Q24HR ARLYN PRN Reason: Protocol Last Admin: 06/04/16 13:00 Dose: 100 mls/hr Sodium Chloride (Nacl 0.9% 1000 Ml) 100 mls @ 999 mls/hr IV RED PRN PRN Reason: Hypotension Vasopressin 20 unit/ Sodium (Chloride) 101 mls @ 9.09 mls/hr IV TITR ARLYN; 0.03 UNITS/MIN PRN Reason: Protocol Insulin Aspart (Novolog) 0 units SUB-Q Q6HR ARLYN PRN Reason: Protocol Last Admin: 06/04/16 18:17 Dose: 1 units Insulin Detemir (Levemir) 35 units SUB-Q DAILY [facility] Last Admin: 06/04/16 12:38 Dose: Not Given Magnesium Hydroxide (Milk Of Magnesia) 30 ml PO Q4H PRN PRN Reason: Constipation Methylprednisolone Sodium Succinate (Solu-Medrol) 60 mg IV Q8HR [facility] Last Admin: 06/04/16 14:13 Dose: 60 mg Montelukast Sodium (Singulair) 10 mg PO QPM [facility] Last Admin: 06/04/16 18:18 Dose: 10 mg Multi-Ingred Cream/Lotion/Oil/Oint (Artificial Tears Ophth Oint) 1 applic OU Q4HR PRN PRN Reason: Dry Eye(s) Last Admin: 06/04/16 08:07 Dose: 1 applic Ondansetron HCl (Zofran) 4 mg IV Q8H PRN PRN Reason: N/V unrelieved by Reglan Pantoprazole Sodium (Protonix) 40 mg IV QDAY [facility] Last Admin: 06/04/16 14:14 Dose: 40 mg Simple Syrup (Simple Syrup) 15 ml FEEDTUBE PRN PRN PRN Reason: Hypoglycemia Simple Syrup (Simple Syrup) 30 ml FEEDTUBE PRN PRN PRN Reason: Hypoglycemia Simvastatin (Zocor) 20 mg PO QHS [facility] Last Admin: 06/03/16 21:01 Dose: Not Given Sodium Bicarbonate (Sodium Bicarbonate) 325 mg FEEDTUBE PRN PRN PRN Reason: For Clogged Feeding Tube Sodium Chloride (Nacl 0.9% 500 Ml) 1 ml IV DIRECT [facility] Vancomycin HCl (Vancomycin Pharmacy To Dose) 1 each IV PKCONSULT [facility] PRN Reason: Protocol Review of Systems All systems: negative (see HPI) Exam - Constitutional Vitals: Temp Pulse Resp BP Pulse Ox 99.1 F 114 H 25 H 118/68 97 06/04/16 16:00 06/04/16 17:11 06/04/16 16:00 06/04/16 17:11 06/04/16 17:11 General appearance: Present: other (intubated) - Extremities Extremities: normal temperature, normal color Extremity abnormal: other (evaluated right vascath, no hematoma or bruising) - Abdominal General gastrointestinal: Present: other (severe obese ; appears to have anasarca) - Psychiatric Psychiatric: appropriate mood/affect, cooperative Results - Labs CBC & Chem 7: 06/04/16 05:25 06/04/16 05:25 Labs: Abnormal lab results 06/03/16 06/03/16 06/03/16 Range/Units 13:40 19:30 19:30 WBC 38.3 H (4.5-11.0) K/mm3 RBC 2.87 L (3.65-5.03) M/mm3 Hgb 8.3 L (11.8-15.2) gm/dl Hct 25.5 L (35.5-45.6) % MCHC (32-34) % RDW 15.3 H (13.2-15.2) % Plt Count 59 L (140-440) K/mm3 Seg Neuts % (Manual) 97.0 H (40.0-70.0) % Lymphocytes % (Manual) 1.0 L (13.4-35.0) % Nucleated RBC % 2.0 H (0.0-0.9) % Seg Neutrophils # Man 37.2 H (1.8-7.7) K/mm3 Lymphocytes # (Manual) 0.4 L (1.2-5.4) K/mm3 PT 15.5 H (12.2-14.9) Sec. INR 1.24 H (0.87-1.13) Fibrinogen 191 L (211-480) mg/dl POC ABG pH (7.35-7.45) POC ABG pO2 (80-105) Potassium (3.6-5.0) mmol/L Carbon Dioxide (22-30) mmol/L BUN (9-20) mg/dL Creatinine (0.8-1.5) mg/dL Glucose (75-100) mg/dL POC Glucose (70-105) Calcium (8.4-10.2) mg/dL Iron (49-181) ug/dL TIBC (250-450) mcg/dL AST (5-40) units/L ALT (7-56) units/L Total Protein (6.3-8.2) g/dL Albumin (3.9-5) g/dL Vitamin B12 (211-911) pg/mL Crossmatch See Detail 06/03/16 06/03/16 06/03/16 Range/Units 19:30 19:30 23:28 WBC (4.5-11.0) K/mm3 RBC (3.65-5.03) M/mm3 Hgb (11.8-15.2) gm/dl Hct (35.5-45.6) % MCHC (32-34) % RDW (13.2-15.2) % Plt Count (140-440) K/mm3 Seg Neuts % (Manual) (40.0-70.0) % Lymphocytes % (Manual) (13.4-35.0) % Nucleated RBC % (0.0-0.9) % Seg Neutrophils # Man (1.8-7.7) K/mm3 Lymphocytes # (Manual) (1.2-5.4) K/mm3 PT (12.2-14.9) Sec. INR (0.87-1.13) Fibrinogen (211-480) mg/dl POC ABG pH (7.35-7.45) POC ABG pO2 (80-105) Potassium (3.6-5.0) mmol/L Carbon Dioxide (22-30) mmol/L BUN (9-20) mg/dL Creatinine (0.8-1.5) mg/dL Glucose (75-100) mg/dL POC Glucose 118 H (70-105) Calcium (8.4-10.2) mg/dL Iron 31 L (49-181) ug/dL TIBC 151 L (250-450) mcg/dL AST (5-40) units/L ALT (7-56) units/L Total Protein (6.3-8.2) g/dL Albumin (3.9-5) g/dL Vitamin B12 1851 H (211-911) pg/mL Crossmatch 06/04/16 06/04/16 06/04/16 Range/Units 05:10 05:25 05:25 WBC 35.9 H (4.5-11.0) K/mm3 RBC 2.61 L (3.65-5.03) M/mm3 Hgb 7.4 L (11.8-15.2) gm/dl Hct 23.7 L (35.5-45.6) % MCHC 31 L (32-34) % RDW 15.4 H (13.2-15.2) % Plt Count 63 L (140-440) K/mm3 Seg Neuts % (Manual) 93.0 H (40.0-70.0) % Lymphocytes % (Manual) 0 L (13.4-35.0) % Nucleated RBC % 3.0 H (0.0-0.9) % Seg Neutrophils # Man 33.4 H (1.8-7.7) K/mm3 Lymphocytes # (Manual) 0.0 L (1.2-5.4) K/mm3 PT (12.2-14.9) Sec. INR (0.87-1.13) Fibrinogen 157 L (211-480) mg/dl POC ABG pH 7.310 L (7.35-7.45) POC ABG pO2 73 L (80-105) Potassium (3.6-5.0) mmol/L Carbon Dioxide (22-30) mmol/L BUN (9-20) mg/dL Creatinine (0.8-1.5) mg/dL Glucose (75-100) mg/dL POC Glucose (70-105) Calcium (8.4-10.2) mg/dL Iron (49-181) ug/dL TIBC (250-450) mcg/dL AST (5-40) units/L ALT (7-56) units/L Total Protein (6.3-8.2) g/dL Albumin (3.9-5) g/dL Vitamin B12 (211-911) pg/mL Crossmatch 06/04/16 06/04/16 06/04/16 Range/Units 05:25 05:46 11:24 WBC (4.5-11.0) K/mm3 RBC (3.65-5.03) M/mm3 Hgb (11.8-15.2) gm/dl Hct (35.5-45.6) % MCHC (32-34) % RDW (13.2-15.2) % Plt Count (140-440) K/mm3 Seg Neuts % (Manual) (40.0-70.0) % Lymphocytes % (Manual) (13.4-35.0) % Nucleated RBC % (0.0-0.9) % Seg Neutrophils # Man (1.8-7.7) K/mm3 Lymphocytes # (Manual) (1.2-5.4) K/mm3 PT (12.2-14.9) Sec. INR (0.87-1.13) Fibrinogen (211-480) mg/dl POC ABG pH (7.35-7.45) POC ABG pO2 (80-105) Potassium 5.5 H (3.6-5.0) mmol/L Carbon Dioxide 18 L (22-30) mmol/L BUN 95 H (9-20) mg/dL Creatinine 4.3 H (0.8-1.5) mg/dL Glucose 119 H (75-100) mg/dL POC Glucose 136 H 184 H (70-105) Calcium 5.0 L* (8.4-10.2) mg/dL Iron (49-181) ug/dL TIBC (250-450) mcg/dL AST 57 H (5-40) units/L ALT 214 H (7-56) units/L Total Protein 3.5 L (6.3-8.2) g/dL Albumin 2.0 L (3.9-5) g/dL Vitamin B12 (211-911) pg/mL Crossmatch 06/04/16 Range/Units 17:35 WBC (4.5-11.0) K/mm3 RBC (3.65-5.03) M/mm3 Hgb (11.8-15.2) gm/dl Hct (35.5-45.6) % MCHC (32-34) % RDW (13.2-15.2) % Plt Count (140-440) K/mm3 Seg Neuts % (Manual) (40.0-70.0) % Lymphocytes % (Manual) (13.4-35.0) % Nucleated RBC % (0.0-0.9) % Seg Neutrophils # Man (1.8-7.7) K/mm3 Lymphocytes # (Manual) (1.2-5.4) K/mm3 PT (12.2-14.9) Sec. INR (0.87-1.13) Fibrinogen (211-480) mg/dl POC ABG pH (7.35-7.45) POC ABG pO2 (80-105) Potassium (3.6-5.0) mmol/L Carbon Dioxide (22-30) mmol/L BUN (9-20) mg/dL Creatinine (0.8-1.5) mg/dL Glucose (75-100) mg/dL POC Glucose 223 H (70-105) Calcium (8.4-10.2) mg/dL Iron (49-181) ug/dL TIBC (250-450) mcg/dL AST (5-40) units/L ALT (7-56) units/L Total Protein (6.3-8.2) g/dL Albumin (3.9-5) g/dL Vitamin B12 (211-911) pg/mL Crossmatch - Imaging and Cardiology CT scan - abdomen: report reviewed, image reviewed Assessment and Plan 80-year-old male with multiple medical problems including right retroperitoneal bleeding currently with renal failure requiring dialysis. Patient was found to have severe thrombocytopenia during this hospitalization. Retroperitoneal bleeds are most commonly related to coagulopathy such as in this patient with severe thrombocytopenia. Thrombocytopenia has improved somewhat. Agree with recommendations by Gen. surgery. Patient requires correction of underlying coagulopathy. Defer coagulopathy correction to hematology who is already seeing the patient. Aggressive endovascular care of retroperitoneal bleeding (endovascular angiography and embolization) can be considered, but the risks in this patient are further damage to renal function in a patient who is acutely on dialysis. Therefore highly recommend conservative care.
--- NOTE | 2016-06-04 20:03 | XRay Report ---
FINAL REPORT PROCEDURE: Abdomen. TECHNIQUE: Supine AP view. HISTORY: Nasogastric tube placement. COMPARISON: No prior studies are available for comparison. FINDINGS: The radiograph is centered on the diaphragm. There is a nasogastric tube that enters the stomach and terminates near the gastric pylorus. The bowel gas pattern is normal as far as visualized. The soft tissues are unremarkable. The regional skeleton appears intact. IMPRESSION: Satisfactory placement of a nasogastric tube.
[2016-06-04] MEDS: ZOCOR PO SCH (21:27)
[2016-06-04 23:09] LABS: Hematocrit 26.5 % (35.5-45.6); Hemoglobin 8.6 gm/dl (11.8-15.2); Mean Corpuscular HGB Conc 33 % (32-34); Mean Corpuscular Hemoglobin 29 pg (28-32); Mean Corpuscular Volume 90 fl (84-94); Red Blood Count 2.94 M/mm3 (3.65-5.03); Red Cell Distribution Width 14.9 % (13.2-15.2)
[2016-06-04 23:11] LABS: White Blood Count 38.5 K/mm3 (4.5-11.0)
[2016-06-05] MEDS: NOVOLOG SUB-Q SCH ×5 (00:06→23:54)
[2016-06-05 02:27] LABS: Anisocytosis 1+; Basophils % (Manual) 0 % (0.0-1.8); Blastocytes % (Manual) 0 %; Eosinophils % (Manual) 0 % (0.0-4.3); Hypochromasia 1+; Polychromasia 1+
[2016-06-05 02:28] LABS: Diff Status Complete; Elliptocytes Rare; Platelet Estimate Consistent w Auto
[2016-06-05 02:29] LABS: Platelet Count 62 K/mm3 (140-440)
[2016-06-05] MEDS: DUONEB 0.5 MG-3 MG/3 ML SOLN IH SCH ×4 (02:42→19:37)
[2016-06-05] MEDS: FLAGYL 500 MG/100 ML 100 ML IV SCH ×3 (05:37→21:43)
[2016-06-05] MEDS: ZOSYN/NS 2.25 GM/50ML 50 ML IV SCH ×3 (05:37→21:43)
[2016-06-05 05:56] LABS: Albumin 2.6 g/dL (3.9-5); Albumin/Globulin Ratio 1.6 %; BUN/Creatinine Ratio 20.29; Bilirubin,Total 0.5 mg/dL (0.1-1.2); Calcium 6.4 mg/dL (8.4-10.2); Chloride 100.8 mmol/L (98-107); Potassium 5.2 mmol/L (3.6-5.0); Total Protein 4.2 g/dL (6.3-8.2)
[2016-06-05] MEDS: PULMICORT IH SCH ×2 (07:58→19:38)
--- NOTE | 2016-06-05 08:37 | Progress Note ---
Assessment and Plan - Patient Problems (1) RUBIA (acute kidney injury) Current Visit: Yes Status: Acute Plan to address problem: Acute Kidney Injury superimposed on CKD stage 3 in the setting of hypotension and anemia. Patient is off levophed. Patient was started on hemodialysis 3 days due to worsening renal function, oliguria and Hyperkalemia. Plan to do hemodialysis tomorrow. Monitor for [employer] needs. Renal prognosis guarded. (2) Hyperkalemia Current Visit: Yes Status: Acute Plan to address problem: Kayexalate ordered. Monitor K level. (3) Shock Current Visit: Yes Status: Acute Plan to address problem: S/p Levophed. (4) Lactic acidosis Current Visit: Yes Status: Acute (5) Acute on chronic respiratory failure with hypoxemia Current Visit: Yes Status: Acute Plan to address problem: On vent. (6) Anemia Current Visit: Yes Status: Acute Qualifiers: Other causes of anemia: other cause, not classified Plan to address problem: S/p transfusion. (7) Shock liver Current Visit: Yes Status: Acute Subjective Date of service: 06/05/16 Principal diagnosis: Acute on Chronic Hypoxemic Respiratory Failure Interval history: Patient remain on the vent. Objective - Vital Signs Vital signs: Vital Signs - 12hr 06/04/16 06/04/16 06/04/16 20:45 20:58 21:00 Temperature Pulse Rate 119 H 122 H Pulse Rate [ 118 H Anterior Bilateral Throughout] Respiratory 21 17 Rate Respiratory 27 H Rate [Anterior Bilateral Throughout] Respiratory Rate [ Generalized] Blood Pressure 132/65 145/63 O2 Sat by Pulse 99 100 Oximetry 06/04/16 06/04/16 06/04/16 21:15 21:30 21:35 Temperature Pulse Rate 124 H 126 H Pulse Rate [ Anterior Bilateral Throughout] Respiratory 25 H 19 26 H Rate Respiratory Rate [Anterior Bilateral Throughout] Respiratory 26 H Rate [ Generalized] Blood Pressure 147/53 135/60 O2 Sat by Pulse 100 100 98 Oximetry 06/04/16 06/04/16 06/04/16 21:45 21:46 21:52 Temperature Pulse Rate 123 H 125 H 125 H Pulse Rate [ Anterior Bilateral Throughout] Respiratory 25 H 19 26 H Rate Respiratory Rate [Anterior Bilateral Throughout] Respiratory Rate [ Generalized] Blood Pressure 124/54 124/54 124/54 O2 Sat by Pulse 100 100 100 Oximetry 06/04/16 06/04/16 06/04/16 21:54 22:00 22:15 Temperature Pulse Rate 135 H 125 H 120 H Pulse Rate [ Anterior Bilateral Throughout] Respiratory 25 H 25 H 25 H Rate Respiratory Rate [Anterior Bilateral Throughout] Respiratory Rate [ Generalized] Blood Pressure 124/54 124/54 130/57 O2 Sat by Pulse 100 98 96 Oximetry 06/04/16 06/04/16 06/04/16 22:30 22:42 22:45 Temperature Pulse Rate 120 H 120 H 123 H Pulse Rate [ Anterior Bilateral Throughout] Respiratory 25 H 19 25 H Rate Respiratory Rate [Anterior Bilateral Throughout] Respiratory Rate [ Generalized] Blood Pressure 133/56 91/40 131/49 O2 Sat by Pulse 96 98 98 Oximetry 06/04/16 06/04/16 06/04/16 22:46 22:47 22:53 Temperature Pulse Rate 123 H 117 H 121 H Pulse Rate [ Anterior Bilateral Throughout] Respiratory 19 25 H 25 H Rate Respiratory Rate [Anterior Bilateral Throughout] Respiratory Rate [ Generalized] Blood Pressure 131/49 131/49 131/49 O2 Sat by Pulse 97 96 98 Oximetry 06/04/16 06/04/16 06/04/16 23:00 23:15 23:29 Temperature Pulse Rate 114 H 119 H 121 H Pulse Rate [ Anterior Bilateral Throughout] Respiratory 26 H 25 H 22 Rate Respiratory Rate [Anterior Bilateral Throughout] Respiratory Rate [ Generalized] Blood Pressure 120/62 109/53 121/55 O2 Sat by Pulse 98 99 99 Oximetry 06/04/16 06/04/16 06/04/16 23:30 23:31 23:35 Temperature Pulse Rate 117 H 113 H Pulse Rate [ Anterior Bilateral Throughout] Respiratory 25 H 25 H 25 H Rate Respiratory Rate [Anterior Bilateral Throughout] Respiratory Rate [ Generalized] Blood Pressure 121/55 121/55 O2 Sat by Pulse 98 98 98 Oximetry 06/04/16 06/05/16 06/05/16 23:45 00:00 00:15 Temperature 99.3 F Pulse Rate 123 H 111 H 115 H Pulse Rate [ Anterior Bilateral Throughout] Respiratory 24 25 H 25 H Rate Respiratory Rate [Anterior Bilateral Throughout] Respiratory Rate [ Generalized] Blood Pressure 131/64 109/49 121/58 O2 Sat by Pulse 99 98 99 Oximetry 06/05/16 06/05/16 06/05/16 00:21 00:31 00:35 Temperature Pulse Rate 118 H 124 H 115 H Pulse Rate [ Anterior Bilateral Throughout] Respiratory 25 H 18 25 H Rate Respiratory Rate [Anterior Bilateral Throughout] Respiratory Rate [ Generalized] Blood Pressure 121/58 143/56 143/56 O2 Sat by Pulse 98 98 98 Oximetry 06/05/16 06/05/16 06/05/16 00:45 01:00 01:15 Temperature Pulse Rate 117 H 109 H 112 H Pulse Rate [ Anterior Bilateral Throughout] Respiratory 25 H 25 H 26 H Rate Respiratory Rate [Anterior Bilateral Throughout] Respiratory Rate [ Generalized] Blood Pressure 133/45 93/41 98/47 O2 Sat by Pulse 98 97 98 Oximetry 06/05/16 06/05/16 06/05/16 01:30 01:45 02:00 Temperature Pulse Rate 115 H 113 H Pulse Rate [ 110 H Anterior Bilateral Throughout] Respiratory 25 H 25 H Rate Respiratory 25 H Rate [Anterior Bilateral Throughout] Respiratory Rate [ Generalized] Blood Pressure 152/63 139/50 O2 Sat by Pulse 99 98 Oximetry 06/05/16 06/05/16 06/05/16 02:01 02:15 02:17 Temperature Pulse Rate 126 H 123 H 112 H Pulse Rate [ Anterior Bilateral Throughout] Respiratory 22 20 25 H Rate Respiratory Rate [Anterior Bilateral Throughout] Respiratory Rate [ Generalized] Blood Pressure 139/50 137/56 137/56 O2 Sat by Pulse 98 99 99 Oximetry 06/05/16 06/05/16 06/05/16 02:20 02:31 02:45 Temperature Pulse Rate 112 H 106 H 112 H Pulse Rate [ Anterior Bilateral Throughout] Respiratory 25 H 25 H 21 Rate Respiratory Rate [Anterior Bilateral Throughout] Respiratory Rate [ Generalized] Blood Pressure 107/23 98/53 O2 Sat by Pulse 98 99 100 Oximetry 06/05/16 06/05/16 06/05/16 02:51 03:00 03:15 Temperature Pulse Rate 110 H 112 H 112 H Pulse Rate [ Anterior Bilateral Throughout] Respiratory 25 H 25 H 25 H Rate Respiratory Rate [Anterior Bilateral Throughout] Respiratory Rate [ Generalized] Blood Pressure 98/53 100/47 88/41 O2 Sat by Pulse 100 100 98 Oximetry 06/05/16 06/05/16 06/05/16 03:17 03:31 03:43 Temperature Pulse Rate 112 H 103 H 114 H Pulse Rate [ Anterior Bilateral Throughout] Respiratory 25 H 25 H 26 H Rate Respiratory Rate [Anterior Bilateral Throughout] Respiratory Rate [ Generalized] Blood Pressure 88/41 95/30 95/30 O2 Sat by Pulse 99 99 99 Oximetry 06/05/16 06/05/16 06/05/16 03:45 04:00 04:15 Temperature 97.5 F L Pulse Rate 121 H 114 H 112 H Pulse Rate [ Anterior Bilateral Throughout] Respiratory 25 H 25 H 25 H Rate Respiratory Rate [Anterior Bilateral Throughout] Respiratory Rate [ Generalized] Blood Pressure 95/30 103/46 103/46 O2 Sat by Pulse 99 99 99 Oximetry 06/05/16 06/05/16 06/05/16 04:20 04:30 04:45 Temperature Pulse Rate 115 H 121 H Pulse Rate [ Anterior Bilateral Throughout] Respiratory 24 24 Rate Respiratory Rate [Anterior Bilateral Throughout] Respiratory Rate [ Generalized] Blood Pressure 104/27 91/56 O2 Sat by Pulse 98 98 98 Oximetry 06/05/16 06/05/16 06/05/16 04:51 05:00 05:15 Temperature Pulse Rate 120 H 127 H 131 H Pulse Rate [ Anterior Bilateral Throughout] Respiratory 25 H 15 20 Rate Respiratory Rate [Anterior Bilateral Throughout] Respiratory Rate [ Generalized] Blood Pressure 91/56 114/55 119/50 O2 Sat by Pulse 93 98 97 Oximetry 06/05/16 06/05/16 06/05/16 05:31 05:45 05:49 Temperature Pulse Rate 131 H 127 H 129 H Pulse Rate [ Anterior Bilateral Throughout] Respiratory 17 16 15 Rate Respiratory Rate [Anterior Bilateral Throughout] Respiratory Rate [ Generalized] Blood Pressure 119/50 126/46 119/50 O2 Sat by Pulse 98 97 98 Oximetry 06/05/16 06/05/16 06/05/16 05:56 05:57 06:01 Temperature Pulse Rate 131 H 132 H Pulse Rate [ Anterior Bilateral Throughout] Respiratory 18 20 19 Rate Respiratory Rate [Anterior Bilateral Throughout] Respiratory Rate [ Generalized] Blood Pressure 119/50 115/42 O2 Sat by Pulse 98 98 98 Oximetry 06/05/16 06/05/16 06/05/16 06:15 06:16 06:17 Temperature Pulse Rate 133 H 132 H 129 H Pulse Rate [ Anterior Bilateral Throughout] Respiratory 21 20 16 Rate Respiratory Rate [Anterior Bilateral Throughout] Respiratory Rate [ Generalized] Blood Pressure 104/43 104/43 104/43 O2 Sat by Pulse 98 98 97 Oximetry 06/05/16 06/05/16 06/05/16 06:24 06:29 06:31 Temperature Pulse Rate 129 H 129 H 130 H Pulse Rate [ Anterior Bilateral Throughout] Respiratory 15 20 15 Rate Respiratory Rate [Anterior Bilateral Throughout] Respiratory Rate [ Generalized] Blood Pressure 119/50 104/43 125/44 O2 Sat by Pulse 98 98 98 Oximetry 06/05/16 06/05/16 06/05/16 06:45 07:00 07:45 Temperature Pulse Rate 132 H 130 H 128 H Pulse Rate [ Anterior Bilateral Throughout] Respiratory 20 17 20 Rate Respiratory Rate [Anterior Bilateral Throughout] Respiratory Rate [ Generalized] Blood Pressure 122/37 129/45 109/37 O2 Sat by Pulse 97 97 97 Oximetry 06/05/16 06/05/16 06/05/16 07:58 08:00 08:10 Temperature 99.6 F Pulse Rate Pulse Rate [ 125 H 126 H Anterior Bilateral Throughout] Respiratory Rate Respiratory 13 21 Rate [Anterior Bilateral Throughout] Respiratory Rate [ Generalized] Blood Pressure O2 Sat by Pulse Oximetry - General Appearance General appearance: well-developed, obese, sedated on ventilator (FiO2 37%), intubated, other (right groin hemodialysis catheter noted) EENT: PERRL Neck: supple Respiratory: Present: Other (coarse breath sounds) Cardiology: regular, tachycardia, no murmurs Gastrointestinal: normoactive bowel sounds, obese Integumentary: no rash Neurologic: other (barely arousable) Musculoskeletal: other (trace pedal edema of both LEs noted) Psychiatric: other (on vent) - Lab 06/05/16 14:00 06/05/16 05:00 Most recent lab results Calcium 6.4 mg/dL (8.4-10.2) L D 06/05/16 05:00 Phosphorus 6.6 mg/dL (2.5-4.5) H 05/30/16 05:30 Magnesium 1.7 mg/dL (1.7-2.3) 06/02/16 20:00 Urine Creatinine 69.9 mg/dL (0.1-20.0) H 05/27/16 18:00 Urine Sodium 46 mEq/L 05/27/16 18:00
[2016-06-05] MEDS: PROTONIX IV SCH (09:38)
[2016-06-05] MEDS: fentaNYL DRIP Premix 100 ML IV SCH (09:39)
[2016-06-05] MEDS: DIFLUCAN 100 ML IV SCH (09:39)
[2016-06-05] MEDS: KAYEXALATE PO SCH ×2 (09:40→13:24)
[2016-06-05 09:52] LABS: ISTAT Base Excess -4; ISTAT HCO3 22.2; ISTAT PCO2 44.1 (35-45); ISTAT PO2 87 (80-105); ISTAT SO2 96; ISTAT TCO2 24
--- NOTE | 2016-06-05 09:56 | Progress Note ---
Assessment and Plan Current antibiotics: Fluconazole 200 mg IV q24h 06/03 --> Vancomycin IV 06/01 --> Zosyn 2.25 g IV q8h 06/01 --> Metronidazole 500 mg IV q8h 05/24 --> Previous antibiotics: Levaquin 750 mg IV q24h 05/22-05/26 Corticosteroids: Solu-Medrol 60 mg IV q6h 05/23 --> ASSESSMENT: Avery Hansen is an 80-year-old male with COPD on home O2, HTN, HLD, obesity and DM2, who was admitted to [facility] on 2016 with worsening shortness of breath and probable COPD exacerbation and developed a sepsis syndrome. Problem list: 1. Sepsis syndrome -Unclear etiology -Respiratory failure, AMS, hypotension, lactic acidosis, RUBIA/HD, marked leukocytosis, elevated liver tests (? shock liver), thrombocytopenia -Rule out pulmonary source although chest x-ray without pneumonia -Rule out intra-abdominal source -Rule out secondary to retroperitoneal hematoma 2. Fever -Tmax 102.2 on 06/03 -Afebrile on steriods -Likely same etiology as #1 3. Leukocytosis -Leukemoid reaction -Secondary to sepsis +/- corticosteroids 4. Positive blood culture -05/31 bottles on 06/01/16 with QUALITY CONTROL TECH = contaminant 5. Ileus versus SBO 6. Anemia - probably multi-factorial - Probable right retroperitoneal bleed - s/p PRBC transfusion 6 Thrombocytopenia - R/O sepsis +/-drug toxicity ? vancomycin and/or Zosyn 7. Bacteriuria/funguria - Probable colonization with indwelling Griffin catheter -Rule out UTI 8. COPD 9. Type 2 DM 10. HTN PLAN: 1. Continue current therapy for now 2. If no new positive culture data will de-escalate therapy 06/06 3. Continue intensive supportive measures 4. May need to consider repeat CT of the abdomen and pelvis to evaluate retroperitoneal bleed 5. Follow platelets and WBC -We will stop Zosyn if platelets continue to fall -Hematology on board (discussed with Dr. Camara) Troy Pierson MD [facility] Office: [phone] Subjective Date of service: 06/05/16 Principal diagnosis: Acute on Chronic Hypoxemic Respiratory Failure Interval history: Somewhat agitated on the ventilator. Eyes open and at times will shake or nod head to questions. Objective - Exam Narrative Exam: GENERAL: Well-developed, obese male who is alert but somewhat agitated on the ventilator. He will follow some simple commands. He is in moderate respiratory distress. HEENT: Pupils are small and minimally reactive. Conjunctiva clear. Left nares NG tube in place. Orally intubated. NECK: No enlargement of the thyroid gland. No significant cervical lymphadenopathy. No jugular venous distention at 30. LUNGS: Decreased breath sounds throughout. No wheezes or rales. HEART: Regular rate. Tachycardic. S1 and S2 are normal. There are no murmurs , gallops, clicks or rubs heard. ABDOMEN: Soft. Mildly distended. Mild generalized tenderness without guarding or rebound. No enlargement of the liver or spleen, palpable masses or ascites. Bowel sounds are present but decreased. : Griffin catheter in place with dark yellow urine. Marked scrotal edema. EXTREMITIES: 2+ generalized edema. No evidence of distal cyanosis. Right upper extremity PICC dressings clean. SKIN: Lower back with mild erythema. No skin breakdown. NEUROLOGIC: Awakes easily and follows simple commands. No definite focal findings but ? left-sided weakness. - Constitutional Vitals: Vital Signs Temp Pulse Resp BP Pulse Ox 99.6 F 126 H 21 109/37 97 06/05/16 08:00 06/05/16 08:10 06/05/16 08:10 06/05/16 07:45 06/05/16 07:45 Temperature -Last 24 Hours Temperature 99.6 F Temperature 97.5 F Temperature 99.3 F Temperature 98.2 F Temperature 99.1 F Temperature 98.3 F Temperature 98.3 F Temperature 98.0 F Temperature 98.4 F Temperature 98.4 F Temperature 98.4 F - Labs CBC & Chem 7: 06/04/16 21:00 06/05/16 05:00 Labs: Abnormal lab results Microbiology 06/02/16 14:50 Urine,Catheterized - Indwelling Catheter Urine Culture - NGTD 06/01/16 17:06 Peripheral/Venous Blood Culture - Preliminary NO GROWTH AFTER 72 HOURS 06/01/16 16:52 Peripheral/Venous Blood Culture - Preliminary NO GROWTH AFTER 72 HOURS 06/01/16 13:06 Peripheral/Venous Blood Culture - Preliminary NO GROWTH AFTER 72 HOURS 06/01/16 14:05 Peripheral/Venous Blood Culture - Preliminary Coag Negative Staphylococcus in 1/2 bottles 06/01/16 17:15 Urine,Griffin Port Urine Culture - > 100,000 multiple organisms consistent with contamination 05/26/16 17:35 Tracheal Aspirate Sputum Culture - Final 05/22/16 14:15 Peripheral/Venous Blood Culture - Final NO GROWTH AFTER 5 DAYS 05/22/16 14:15 Peripheral/Venous Blood Culture - Final NO GROWTH AFTER 5 DAYS 05/22/16 22:30 Urine,Clean Catch Urine Culture - Final Imagin/11: CT abdomen/pelvis: Moderate right sided pleural effusion and small left pleural effusion. Some amorphous material located predominantly lateral and posterior to the right psoas muscle suggestive of a retroperitoneal hemorrhage 06/02 CXR with no signs of pneumonia
[2016-06-05] MEDS ORDERED: VANCOMYCIN/NS 500 MG/100 ML 100 ML IV ONE (10:00)
--- NOTE | 2016-06-05 10:32 | Hem/Onc Progress Note ---
Assessment and Plan - Patient Problems (1) Thrombocytopenia, idiopathic Current Visit: Yes Status: Acute Plan to address problem: Likely multifactorial - sepsis, iatrogenic (spoke to ID regarding modifying antibx). Platelets 76 up from 62. Supportive. Monitor for clinical evidence of bleeding. Follow CBC.HIT negative. (2) Acute on chronic respiratory failure with hypoxemia Current Visit: Yes Status: Acute Plan to address problem: Pulmonary following. (3) Sepsis Current Visit: Yes Status: Acute Plan to address problem: Antibx per ID. Check culture results. Supportive. (4) Anemia Current Visit: Yes Status: Acute Qualifiers: Other causes of anemia: other cause, not classified Plan to address problem: Continue on Epogen 20,000 3 times a week. Follow CBC Subjective Date of service: 06/05/16 Interval history: RN at bedside. No family in room. Pt intubated and unable to provide history. Eyes opened. Objective - Constitutional Vitals: Last Vital Signs Temp 99.6 F 06/05/16 08:00 Pulse 124 H 06/05/16 09:45 Resp 23 06/05/16 09:45 BP 96/49 06/05/16 09:45 Pulse Ox 98 06/05/16 09:45 General appearance: other (Intubated) - Respiratory Respiratory effort: Positive: other (Intubated) Respiratory: bilateral: diminished (Ventilated) - Cardiovascular Rhythm: other (Tachycardic) Extremity abnormal: edema (UE wheeping), erythema (Left arm) - Gastrointestinal General gastrointestinal: Present: distended, hypoactive bowel sounds Rectal Exam: deferred - Genitourinary Male genitourinary: Present: scrotal edema - Integumentary Integumentary: erythema (UE) - Musculoskeletal Musculoskeletal: generalized weakness - Neurologic Neurologic: other (Sedated) - Labs Lab Results: Laboratory Results - last 24 hr 06/03/16 06/04/16 06/04/16 13:40 11:24 17:35 WBC RBC Hgb Hct MCV MCH MCHC RDW Plt Count Add Manual Diff Total Counted Seg Neutrophils % Seg Neuts % (Manual) Band Neutrophils % Lymphocytes % (Manual) Reactive Lymphs % (Man) Monocytes % (Manual) Eosinophils % (Manual) Basophils % (Manual) Metamyelocytes % Myelocytes % Promyelocytes % Blast Cells % Nucleated RBC % Seg Neutrophils # Man Band Neutrophils # Lymphocytes # (Manual) Abs React Lymphs (Man) Monocytes # (Manual) Eosinophils # (Manual) Basophils # (Manual) Metamyelocytes # Myelocytes # Promyelocytes # Blast Cells # WBC Morphology Hypersegmented Neuts Hyposegmented Neuts Hypogranular Neuts Smudge Cells Toxic Granulation Toxic Vacuolation Dohle Bodies Pelger-Huet Anomaly Bari Rods Platelet Estimate Clumped Platelets Plt Clumps, EDTA Large Platelets Giant Platelets Platelet Satelliting Plt Morphology Comment RBC Morphology Dimorphic RBCs Polychromasia Hypochromasia Poikilocytosis Anisocytosis Microcytosis Macrocytosis Spherocytes Pappenheimer Bodies Sickle Cells Target Cells Tear Drop Cells Ovalocytes Helmet Cells [place] Bodies [place] Rings Benny Cells Bite Cells Crenated Cell Elliptocytes Acanthocytes (Spur) Rouleaux Hemoglobin C Crystals Schistocytes Malaria parasites Andrea Bodies Hem Pathologist Commnt POC ABG pH POC ABG pCO2 POC ABG pO2 POC ABG HCO3 POC ABG Total CO2 POC ABG O2 Sat POC ABG Base Excess FiO2 Sodium Potassium Chloride Carbon Dioxide Anion Gap BUN Creatinine Estimated GFR BUN/Creatinine Ratio Glucose POC Glucose 184 H 223 H Calcium Total Bilirubin AST ALT Alkaline Phosphatase Total Protein Albumin Albumin/Globulin Ratio Random Vancomycin Blood Type O POSITIVE Antibody Screen Negative Crossmatch See Detail 06/04/16 06/04/16 06/05/16 21:00 23:43 05:00 WBC 38.5 H RBC 2.94 L Hgb 8.6 L Hct 26.5 L MCV 90 MCH 29 MCHC 33 RDW 14.9 Plt Count 62 L Add Manual Diff Complete Total Counted 100 Seg Neutrophils % Nurse Practitioner Physician Assistant Seg Neuts % (Manual) 71.0 H Band Neutrophils % 15.0 Lymphocytes % (Manual) 4.0 L Reactive Lymphs % (Man) 0 Monocytes % (Manual) 3.0 Eosinophils % (Manual) 0 Basophils % (Manual) 0 Metamyelocytes % 2.0 Myelocytes % 0 Promyelocytes % 5.0 Blast Cells % 0 Nucleated RBC % Not Reportable Seg Neutrophils # Man 27.3 H Band Neutrophils # 5.8 Lymphocytes # (Manual) 1.5 Abs React Lymphs (Man) 0.0 Monocytes # (Manual) 1.2 H Eosinophils # (Manual) 0.0 Basophils # (Manual) 0.0 Metamyelocytes # 0.8 Myelocytes # 0.0 Promyelocytes # 1.9 Blast Cells # 0.0 WBC Morphology Not Reportable Hypersegmented Neuts Not Reportable Hyposegmented Neuts Not Reportable Hypogranular Neuts Not Reportable Smudge Cells Not Reportable Toxic Granulation Not Reportable Toxic Vacuolation Not Reportable Dohle Bodies Not Reportable Pelger-Huet Anomaly Not Reportable Bari Rods Not Reportable Platelet Estimate Consistent w auto Clumped Platelets Not Reportable Plt Clumps, EDTA Not Reportable Large Platelets Not Reportable Giant Platelets Not Reportable Platelet Satelliting Not Reportable Plt Morphology Comment Not Reportable RBC Morphology Not Reportable Dimorphic RBCs Not Reportable Polychromasia 1+ Hypochromasia 1+ Poikilocytosis Not Reportable Anisocytosis 1+ Microcytosis Not Reportable Macrocytosis Not Reportable Spherocytes Not Reportable Pappenheimer Bodies Not Reportable Sickle Cells Not Reportable Target Cells Not Reportable Tear Drop Cells Not Reportable Ovalocytes Not Reportable Helmet Cells Not Reportable [place] Bodies Not Reportable [place] Rings Not Reportable Benny Cells Not Reportable Bite Cells Rare Crenated Cell Not Reportable Elliptocytes Rare Acanthocytes (Spur) Not Reportable Rouleaux Not Reportable Hemoglobin C Crystals Not Reportable Schistocytes Not Reportable Malaria parasites Not Reportable Andrea Bodies Not Reportable Hem Pathologist Commnt No POC ABG pH POC ABG pCO2 POC ABG pO2 POC ABG HCO3 POC ABG Total CO2 POC ABG O2 Sat POC ABG Base Excess FiO2 Sodium 141 Potassium 5.2 H Chloride 100.8 Carbon Dioxide 22 Anion Gap 23 BUN 69 H Creatinine 3.4 H Estimated GFR 17 BUN/Creatinine Ratio 20.29 Glucose 192 H POC Glucose 167 H Calcium 6.4 L D Total Bilirubin 0.5 AST 57 H ALT 189 H Alkaline Phosphatase 77 Total Protein 4.2 L Albumin 2.6 L Albumin/Globulin Ratio 1.6 Random Vancomycin Blood Type Antibody Screen Crossmatch 06/05/16 06/05/16 06/05/16 05:00 05:53 08:03 WBC RBC Hgb Hct MCV MCH MCHC RDW Plt Count Add Manual Diff Total Counted Seg Neutrophils % Seg Neuts % (Manual) Band Neutrophils % Lymphocytes % (Manual) Reactive Lymphs % (Man) Monocytes % (Manual) Eosinophils % (Manual) Basophils % (Manual) Metamyelocytes % Myelocytes % Promyelocytes % Blast Cells % Nucleated RBC % Seg Neutrophils # Man Band Neutrophils # Lymphocytes # (Manual) Abs React Lymphs (Man) Monocytes # (Manual) Eosinophils # (Manual) Basophils # (Manual) Metamyelocytes # Myelocytes # Promyelocytes # Blast Cells # WBC Morphology Hypersegmented Neuts Hyposegmented Neuts Hypogranular Neuts Smudge Cells Toxic Granulation Toxic Vacuolation Dohle Bodies Pelger-Huet Anomaly Bari Rods Platelet Estimate Clumped Platelets Plt Clumps, EDTA Large Platelets Giant Platelets Platelet Satelliting Plt Morphology Comment RBC Morphology Dimorphic RBCs Polychromasia Hypochromasia Poikilocytosis Anisocytosis Microcytosis Macrocytosis Spherocytes Pappenheimer Bodies Sickle Cells Target Cells Tear Drop Cells Ovalocytes Helmet Cells [place] Bodies [place] Rings [place] Cells Bite Cells Crenated Cell Elliptocytes Acanthocytes (Spur) Rouleaux Hemoglobin C Crystals Schistocytes Malaria parasites Andrea Bodies Hem Pathologist Commnt POC ABG pH 7.310 L POC ABG pCO2 44.1 POC ABG pO2 87 POC ABG HCO3 22.2 POC ABG Total CO2 24 POC ABG O2 Sat 96 POC ABG Base Excess -4 FiO2 35 Sodium Potassium Chloride Carbon Dioxide Anion Gap BUN Creatinine Estimated GFR BUN/Creatinine Ratio Glucose POC Glucose 226 H Calcium Total Bilirubin AST ALT Alkaline Phosphatase Total Protein Albumin Albumin/Globulin Ratio Random Vancomycin 14.8 Blood Type Antibody Screen Crossmatch
[2016-06-05] MEDS: LEVEMIR SUB-Q SCH (12:41)
[2016-06-05] MEDS: REGLAN IV SCH ×3 (13:20→23:55)
--- NOTE | 2016-06-05 13:59 | Progress Note ---
Assessment and Plan Pt intubated. Abd unchanged surgically status quo h/h & coagulation correction as per [facility] & hematology Selected Entries 06/05/16 06/05/16 09:30 11:52 Pulse Rate 130 H Respiratory 25 H Rate Blood Pressure 109/47 143/68 Objective Vital Signs - 12hr 06/05/16 06/05/16 06/05/16 02:00 02:01 02:15 Temperature Pulse Rate 126 H 123 H Pulse Rate [ 110 H Anterior Bilateral Throughout] Pulse Rate [ From Monitor] Respiratory 22 20 Rate Respiratory 25 H Rate [Anterior Bilateral Throughout] Respiratory Rate [ Generalized] Blood Pressure 139/50 137/56 O2 Sat by Pulse 98 99 Oximetry 06/05/16 06/05/16 06/05/16 02:17 02:20 02:31 Temperature Pulse Rate 112 H 112 H 106 H Pulse Rate [ Anterior Bilateral Throughout] Pulse Rate [ From Monitor] Respiratory 25 H 25 H 25 H Rate Respiratory Rate [Anterior Bilateral Throughout] Respiratory Rate [ Generalized] Blood Pressure 137/56 107/23 O2 Sat by Pulse 99 98 99 Oximetry 06/05/16 06/05/16 06/05/16 02:45 02:51 03:00 Temperature Pulse Rate 112 H 110 H 112 H Pulse Rate [ Anterior Bilateral Throughout] Pulse Rate [ From Monitor] Respiratory 21 25 H 25 H Rate Respiratory Rate [Anterior Bilateral Throughout] Respiratory Rate [ Generalized] Blood Pressure 98/53 98/53 100/47 O2 Sat by Pulse 100 100 100 Oximetry 06/05/16 06/05/16 06/05/16 03:15 03:17 03:31 Temperature Pulse Rate 112 H 112 H 103 H Pulse Rate [ Anterior Bilateral Throughout] Pulse Rate [ From Monitor] Respiratory 25 H 25 H 25 H Rate Respiratory Rate [Anterior Bilateral Throughout] Respiratory Rate [ Generalized] Blood Pressure 88/41 88/41 95/30 O2 Sat by Pulse 98 99 99 Oximetry 06/05/16 06/05/16 06/05/16 03:43 03:45 04:00 Temperature 97.5 F L Pulse Rate 114 H 121 H 114 H Pulse Rate [ Anterior Bilateral Throughout] Pulse Rate [ From Monitor] Respiratory 26 H 25 H 25 H Rate Respiratory Rate [Anterior Bilateral Throughout] Respiratory Rate [ Generalized] Blood Pressure 95/30 95/30 103/46 O2 Sat by Pulse 99 99 99 Oximetry 06/05/16 06/05/16 06/05/16 04:15 04:20 04:30 Temperature Pulse Rate 112 H 115 H Pulse Rate [ Anterior Bilateral Throughout] Pulse Rate [ From Monitor] Respiratory 25 H 24 Rate Respiratory Rate [Anterior Bilateral Throughout] Respiratory Rate [ Generalized] Blood Pressure 103/46 104/27 O2 Sat by Pulse 99 98 98 Oximetry 06/05/16 06/05/16 06/05/16 04:45 04:51 05:00 Temperature Pulse Rate 121 H 120 H 127 H Pulse Rate [ Anterior Bilateral Throughout] Pulse Rate [ From Monitor] Respiratory 24 25 H 15 Rate Respiratory Rate [Anterior Bilateral Throughout] Respiratory Rate [ Generalized] Blood Pressure 91/56 91/56 114/55 O2 Sat by Pulse 98 93 98 Oximetry 06/05/16 06/05/16 06/05/16 05:15 05:31 05:45 Temperature Pulse Rate 131 H 131 H 127 H Pulse Rate [ Anterior Bilateral Throughout] Pulse Rate [ From Monitor] Respiratory 20 17 16 Rate Respiratory Rate [Anterior Bilateral Throughout] Respiratory Rate [ Generalized] Blood Pressure 119/50 119/50 126/46 O2 Sat by Pulse 97 98 97 Oximetry 06/05/16 06/05/16 06/05/16 05:49 05:56 05:57 Temperature Pulse Rate 129 H 131 H Pulse Rate [ Anterior Bilateral Throughout] Pulse Rate [ From Monitor] Respiratory 15 18 20 Rate Respiratory Rate [Anterior Bilateral Throughout] Respiratory Rate [ Generalized] Blood Pressure 119/50 119/50 O2 Sat by Pulse 98 98 98 Oximetry 06/05/16 06/05/16 06/05/16 06:01 06:15 06:16 Temperature Pulse Rate 132 H 133 H 132 H Pulse Rate [ Anterior Bilateral Throughout] Pulse Rate [ From Monitor] Respiratory 19 21 20 Rate Respiratory Rate [Anterior Bilateral Throughout] Respiratory Rate [ Generalized] Blood Pressure 115/42 104/43 104/43 O2 Sat by Pulse 98 98 98 Oximetry 06/05/16 06/05/16 06/05/16 06:17 06:24 06:29 Temperature Pulse Rate 129 H 129 H 129 H Pulse Rate [ Anterior Bilateral Throughout] Pulse Rate [ From Monitor] Respiratory 16 15 20 Rate Respiratory Rate [Anterior Bilateral Throughout] Respiratory Rate [ Generalized] Blood Pressure 104/43 119/50 104/43 O2 Sat by Pulse 97 98 98 Oximetry 06/05/16 06/05/16 06/05/16 06:31 06:45 07:00 Temperature Pulse Rate 130 H 132 H 130 H Pulse Rate [ Anterior Bilateral Throughout] Pulse Rate [ From Monitor] Respiratory 15 20 17 Rate Respiratory Rate [Anterior Bilateral Throughout] Respiratory Rate [ Generalized] Blood Pressure 125/44 122/37 129/45 O2 Sat by Pulse 98 97 97 Oximetry 06/05/16 06/05/16 06/05/16 07:01 07:15 07:30 Temperature Pulse Rate 128 H 126 H 129 H Pulse Rate [ Anterior Bilateral Throughout] Pulse Rate [ From Monitor] Respiratory 15 13 19 Rate Respiratory Rate [Anterior Bilateral Throughout] Respiratory Rate [ Generalized] Blood Pressure 129/45 121/37 121/37 O2 Sat by Pulse 97 97 97 Oximetry 06/05/16 06/05/16 06/05/16 07:45 07:58 08:00 Temperature 99.6 F Pulse Rate 128 H 126 H Pulse Rate [ 125 H Anterior Bilateral Throughout] Pulse Rate [ From Monitor] Respiratory 14 14 Rate Respiratory 13 Rate [Anterior Bilateral Throughout] Respiratory Rate [ Generalized] Blood Pressure 112/39 102/48 O2 Sat by Pulse 97 100 Oximetry 06/05/16 06/05/16 06/05/16 08:10 08:15 08:30 Temperature Pulse Rate 126 H 127 H Pulse Rate [ 126 H Anterior Bilateral Throughout] Pulse Rate [ From Monitor] Respiratory 14 16 Rate Respiratory 21 Rate [Anterior Bilateral Throughout] Respiratory Rate [ Generalized] Blood Pressure 92/50 105/48 O2 Sat by Pulse 100 98 Oximetry 06/05/16 06/05/16 06/05/16 08:45 09:00 09:01 Temperature Pulse Rate 124 H 126 H Pulse Rate [ Anterior Bilateral Throughout] Pulse Rate [ 126 H From Monitor] Respiratory 13 25 H 15 Rate Respiratory Rate [Anterior Bilateral Throughout] Respiratory Rate [ Generalized] Blood Pressure 108/46 102/38 O2 Sat by Pulse 98 97 97 Oximetry 06/05/16 06/05/16 06/05/16 09:15 09:30 09:45 Temperature Pulse Rate 123 H 124 H Pulse Rate [ Anterior Bilateral Throughout] Pulse Rate [ From Monitor] Respiratory 15 23 Rate Respiratory Rate [Anterior Bilateral Throughout] Respiratory Rate [ Generalized] Blood Pressure 104/45 109/47 96/49 O2 Sat by Pulse 98 98 98 Oximetry 06/05/16 06/05/16 06/05/16 09:53 10:00 10:15 Temperature Pulse Rate 123 H 122 H 124 H Pulse Rate [ Anterior Bilateral Throughout] Pulse Rate [ From Monitor] Respiratory 14 13 16 Rate Respiratory Rate [Anterior Bilateral Throughout] Respiratory 22 Rate [ Generalized] Blood Pressure 96/49 115/31 111/36 O2 Sat by Pulse 98 98 98 Oximetry 06/05/16 06/05/16 06/05/16 10:31 10:45 11:00 Temperature Pulse Rate 126 H 119 H 131 H Pulse Rate [ Anterior Bilateral Throughout] Pulse Rate [ From Monitor] Respiratory 23 19 16 Rate Respiratory Rate [Anterior Bilateral Throughout] Respiratory Rate [ Generalized] Blood Pressure 101/45 123/46 122/76 O2 Sat by Pulse 99 99 99 Oximetry 06/05/16 06/05/16 11:15 11:52 Temperature Pulse Rate 130 H 130 H Pulse Rate [ Anterior Bilateral Throughout] Pulse Rate [ From Monitor] Respiratory 21 25 H Rate Respiratory Rate [Anterior Bilateral Throughout] Respiratory Rate [ Generalized] Blood Pressure 122/76 143/68 O2 Sat by Pulse 99 99 Oximetry - Labs 06/04/16 21:00 06/05/16 05:00 Diabetes panel 06/05/16 Range/Units 05:00 Sodium 141 (137-145) mmol/L Potassium 5.2 H (3.6-5.0) mmol/L Chloride 100.8 (98-107) mmol/L Carbon Dioxide 22 (22-30) mmol/L BUN 69 H (9-20) mg/dL Creatinine 3.4 H (0.8-1.5) mg/dL Glucose 192 H (75-100) mg/dL Calcium 6.4 L D (8.4-10.2) mg/dL AST 57 H (5-40) units/L ALT 189 H (7-56) units/L Alkaline Phosphatase 77 (35-129) units/L Total Protein 4.2 L (6.3-8.2) g/dL Albumin 2.6 L (3.9-5) g/dL Calcium panel 06/05/16 Range/Units 05:00 Calcium 6.4 L D (8.4-10.2) mg/dL Albumin 2.6 L (3.9-5) g/dL Pituitary panel 06/05/16 Range/Units 05:00 Sodium 141 (137-145) mmol/L Potassium 5.2 H (3.6-5.0) mmol/L Chloride 100.8 (98-107) mmol/L Carbon Dioxide 22 (22-30) mmol/L BUN 69 H (9-20) mg/dL Creatinine 3.4 H (0.8-1.5) mg/dL Glucose 192 H (75-100) mg/dL Calcium 6.4 L D (8.4-10.2) mg/dL Adrenal panel 06/05/16 Range/Units 05:00 Sodium 141 (137-145) mmol/L Potassium 5.2 H (3.6-5.0) mmol/L Chloride 100.8 (98-107) mmol/L Carbon Dioxide 22 (22-30) mmol/L BUN 69 H (9-20) mg/dL Creatinine 3.4 H (0.8-1.5) mg/dL Glucose 192 H (75-100) mg/dL Calcium 6.4 L D (8.4-10.2) mg/dL Total Bilirubin 0.5 (0.1-1.2) mg/dL AST 57 H (5-40) units/L ALT 189 H (7-56) units/L Alkaline Phosphatase 77 (35-129) units/L Total Protein 4.2 L (6.3-8.2) g/dL Albumin 2.6 L (3.9-5) g/dL
--- NOTE | 2016-06-05 14:00 | Physician Progress Note ---
SUBJECTIVE: The patient on mechanical ventilation, sedated, appears comfortable, not in apparent discomfort or pain. He is not fighting the respirator. OBJECTIVE: VITAL SIGNS: Temperature 99.1, blood pressure has been around 118/68. He is on low dose vasopressors. Heart rate 114, respirations 25 per minute on mechanical ventilation. GENERAL: The patient on mechanical ventilation, sedated, appears comfortable, not fighting the respirator. SKIN: No new bruises, no petechia. HEENT: Pale conjunctivae. NECK: No adenopathy. No facial swelling, no neck swelling. CHEST: Moving in symmetrical fashion during inspiration and expiration. LUNGS: Minimal basal rhonchi, minimal wheezing. HEART: Regular rate and rhythm. No S3 gallop. ABDOMEN: Obese, soft, nontender. No palpable masses. No palpable liver or spleen. Normal bowel sounds. EXTREMITIES: 1+ edema. CENTRAL NERVOUS SYSTEM: The patient is sedated. MUSCULOSKELETAL: No acute joint swelling. BLOOD-LYMPHATICS: No ecchymosis, no bruises, no petechiae. No adenopathy. No palpable liver or spleen. LABORATORY DATA: Follow up CBC today, hemoglobin 7.4, hematocrit 23.7 (had one unit of blood transfused today as per nurse stated). Platelets today 63,000 (no active bleeding, no platelet transfusions). Yesterday, PT 15.45, INR 1.2, PTT 25. Fibrinogen yesterday 191, today 157. BUN today 95, creatinine 4.3 (dialyzed today). Iron 31, total iron binding capacity 151, and ferritin 285 (consistent with a chronic disease, acute illness). B12 1851. Folic acid more than 20. HIT antibodies pending. CT scan of the abdomen and pelvis, moderate size right pleural effusion and a small left pleural effusion. Possible small right renal cyst. Small nonobstructing left renal calculus. Atherosclerosis, probable right-sided retroperitoneal hemorrhage. The suspected hematoma measures 11 cm in length and 4.7 cm in width and 5.1 cm in depth. ASSESSMENT: 1. Thrombocytopenia, severe, acquired during this hospitalization, multifactorial, acute illness, sepsis, retroperitoneal hematoma-consumption (HIT pending), acute renal failure, the patient off heparin now. Platelets today stable, today 63,000, yesterday 59,000. Continue to monitor, no platelet transfusion today. 2. Anemia, multifactorial, including anemia of chronic kidney disease, on Epogen. Also, anemia of blood loss, retroperitoneal hematoma. Could not rule out a gastrointestinal blood loss in my understanding. GI consulted. 3. Chronic obstructive pulmonary disease exacerbation, respiratory failure, mechanical ventilation. 4. Retroperitoneal hematoma, probably secondary to recent heparin use. Currently, the patient off heparin. 5. Sepsis syndrome. 6. Acute kidney injury, the patient had dialysis today. 5. ? Ileus. PLAN: Review additional studies when they are available (HIT). Continue to monitor hematology picture. Continue supportive therapy. Management of underlying disease. Review additional input from consultants requested. Results will be reviewed when it is available. JOB# [id number] ASA/NTS MTDD
[2016-06-05 14:36] LABS: Hemoglobin 9.3 gm/dl (11.8-15.2); Mean Corpuscular HGB Conc 32 % (32-34); Mean Corpuscular Hemoglobin 29 pg (28-32); Mean Corpuscular Volume 90 fl (84-94); Red Blood Count 3.24 M/mm3 (3.65-5.03); Red Cell Distribution Width 15.4 % (13.2-15.2)
--- NOTE | 2016-06-05 14:36 | Progress Note ---
Assessment and Plan - Patient Problems (1) Acute exacerbation of chronic obstructive pulmonary disease (COPD) Current Visit: Yes Status: Acute Plan to address problem: - continue supplemental oxygen to keep sats >/= 92% - continue empiric AB's and follow cultures - continue ALIN and LABA - continue systemic steroids with slow taper - complete VTE w/up (Unable to do VQ or CTA re: azotemia) - repeat ABG prn - Holding on weaning till more stable - failed bedside SBT - added versed and increased sedation for now with daily sedation vacations - continue daily weaning trials (but failed bedside SBT today) - explained to family that he will need a tracheostomy and will consult for same (2) Acute on chronic respiratory failure with hypoxemia Current Visit: Yes Status: Acute Plan to address problem: - as above - continue aspiration precautions / VAP bundles - continue bronchodilators and pulmonary toilet - resume fentanyl drip for sedation/analgesia - get KUB and decompress abdomen if necessary (will give simethicone in short term +/- reglan) - added seroquel and prn xanax for anxiolysis - resumed IV versed - weaning tenuously not unexpectedly so far; if does not wean well may need LTAC evaluation but not at this point - continue daily PSV trials as tolerated - for tracheostomy (3) Obesity Current Visit: Yes Status: Acute Plan to address problem: - weight loss - outpatient PSG (4) Sepsis syndrome Current Visit: Yes Status: Acute Plan to address problem: - CRP unremarkable - Lactate trended down - hold on broadening AB's - get labs and r/o significant bleeding occultly - aggressive volume resuscitation - central venous access obtained - stopped alkalanized fluids - switch to more conservative volume management at this point - continue to follow off AB's - continue to wean levophed to keep MAP > 60-65mmHg - will get ID input - Anti-infectives per ID recs - WBC increased further today - will get AM lactate and CRP level (5) Anemia Current Visit: Yes Status: Acute Qualifiers: Other causes of anemia: other cause, not classified Plan to address problem: - suspect inappropriate rise in Hb post 2 units PRBC's is due to hemodilution - will follow and hold on transfusion except Hb < 7.0 at this point - GI evaluation noted - change to bid PPI dosing - Hb noted but will hold on transfusion and trend - follow CT abd/pelvis - retroperitoneal bleed on CT abd/pelvis - will give cryoprecipitate (if trends further down) and vitamin K re: coagulopathy - Hb 9.3 today and holding (6) RUBIA (acute kidney injury) Current Visit: Yes Status: Acute Plan to address problem: - will consult nephrology sooner rather than later - likely ATN component in setting of IVVD - nephrology consulted and evaluation ongoing - oliguria developing now - will get vascath - 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 - tolerated Dialysis - still making some urine - continue HD/UF per nephrology recs (7) Thrombocytopenia Current Visit: Yes Status: Acute Plan to address problem: - likely related to sepsis and azotemia - stopped heparinoids - await HIT assay result - will taper solumedrol at this point - hematology consulted (8) Tachycardia Current Visit: Yes Status: Acute Plan to address problem: - improved - seen by cardiology (9) Small bowel obstruction Current Visit: Yes Status: Acute Plan to address problem: - likely ileus related to retroperitoneal bleed and sepsis (10) Discharge planning issues Current Visit: Yes Status: Acute Plan to address problem: - weaning tenuously but not unexpectedly so far; if does not wean well may need LTAC evaluation but not at this point - spoke with two sons and will consult for tracheostomy ...he is critically ill on life sustaining interventions including MVS and at high risk for further deterioration including ...34' CCT Subjective Date of service: 06/05/16 Principal diagnosis: Acute on Chronic Hypoxemic Respiratory Failure Interval history: seen and examined at bedside; 24hour events reviewed; nursing and respiratory care staff consulted; no adverse overnight events reported to me; remains on MVS ; tenuously tolerating PSV trials but no overt decompensation; no emesis or overt aspiration; son in room Objective Vital Signs - 12hr 06/05/16 06/05/16 06/05/16 02:45 02:51 03:00 Temperature Pulse Rate 112 H 110 H 112 H Pulse Rate [ Anterior Bilateral Throughout] Pulse Rate [ From Monitor] Respiratory 21 25 H 25 H Rate Respiratory Rate [Anterior Bilateral Throughout] Respiratory Rate [ Generalized] Blood Pressure 98/53 98/53 100/47 O2 Sat by Pulse 100 100 100 Oximetry 06/05/16 06/05/16 06/05/16 03:15 03:17 03:31 Temperature Pulse Rate 112 H 112 H 103 H Pulse Rate [ Anterior Bilateral Throughout] Pulse Rate [ From Monitor] Respiratory 25 H 25 H 25 H Rate Respiratory Rate [Anterior Bilateral Throughout] Respiratory Rate [ Generalized] Blood Pressure 88/41 88/41 95/30 O2 Sat by Pulse 98 99 99 Oximetry 06/05/16 06/05/16 06/05/16 03:43 03:45 04:00 Temperature 97.5 F L Pulse Rate 114 H 121 H 114 H Pulse Rate [ Anterior Bilateral Throughout] Pulse Rate [ From Monitor] Respiratory 26 H 25 H 25 H Rate Respiratory Rate [Anterior Bilateral Throughout] Respiratory Rate [ Generalized] Blood Pressure 95/30 95/30 103/46 O2 Sat by Pulse 99 99 99 Oximetry 06/05/16 06/05/16 06/05/16 04:15 04:20 04:30 Temperature Pulse Rate 112 H 115 H Pulse Rate [ Anterior Bilateral Throughout] Pulse Rate [ From Monitor] Respiratory 25 H 24 Rate Respiratory Rate [Anterior Bilateral Throughout] Respiratory Rate [ Generalized] Blood Pressure 103/46 104/27 O2 Sat by Pulse 99 98 98 Oximetry 06/05/16 06/05/16 06/05/16 04:45 04:51 05:00 Temperature Pulse Rate 121 H 120 H 127 H Pulse Rate [ Anterior Bilateral Throughout] Pulse Rate [ From Monitor] Respiratory 24 25 H 15 Rate Respiratory Rate [Anterior Bilateral Throughout] Respiratory Rate [ Generalized] Blood Pressure 91/56 91/56 114/55 O2 Sat by Pulse 98 93 98 Oximetry 06/05/16 06/05/16 06/05/16 05:15 05:31 05:45 Temperature Pulse Rate 131 H 131 H 127 H Pulse Rate [ Anterior Bilateral Throughout] Pulse Rate [ From Monitor] Respiratory 20 17 16 Rate Respiratory Rate [Anterior Bilateral Throughout] Respiratory Rate [ Generalized] Blood Pressure 119/50 119/50 126/46 O2 Sat by Pulse 97 98 97 Oximetry 06/05/16 06/05/16 06/05/16 05:49 05:56 05:57 Temperature Pulse Rate 129 H 131 H Pulse Rate [ Anterior Bilateral Throughout] Pulse Rate [ From Monitor] Respiratory 15 18 20 Rate Respiratory Rate [Anterior Bilateral Throughout] Respiratory Rate [ Generalized] Blood Pressure 119/50 119/50 O2 Sat by Pulse 98 98 98 Oximetry 06/05/16 06/05/16 06/05/16 06:01 06:15 06:16 Temperature Pulse Rate 132 H 133 H 132 H Pulse Rate [ Anterior Bilateral Throughout] Pulse Rate [ From Monitor] Respiratory 19 21 20 Rate Respiratory Rate [Anterior Bilateral Throughout] Respiratory Rate [ Generalized] Blood Pressure 115/42 104/43 104/43 O2 Sat by Pulse 98 98 98 Oximetry 06/05/16 06/05/16 06/05/16 06:17 06:24 06:29 Temperature Pulse Rate 129 H 129 H 129 H Pulse Rate [ Anterior Bilateral Throughout] Pulse Rate [ From Monitor] Respiratory 16 15 20 Rate Respiratory Rate [Anterior Bilateral Throughout] Respiratory Rate [ Generalized] Blood Pressure 104/43 119/50 104/43 O2 Sat by Pulse 97 98 98 Oximetry 06/05/16 06/05/16 06/05/16 06:31 06:45 07:00 Temperature Pulse Rate 130 H 132 H 130 H Pulse Rate [ Anterior Bilateral Throughout] Pulse Rate [ From Monitor] Respiratory 15 20 17 Rate Respiratory Rate [Anterior Bilateral Throughout] Respiratory Rate [ Generalized] Blood Pressure 125/44 122/37 129/45 O2 Sat by Pulse 98 97 97 Oximetry 06/05/16 06/05/16 06/05/16 07:01 07:15 07:30 Temperature Pulse Rate 128 H 126 H 129 H Pulse Rate [ Anterior Bilateral Throughout] Pulse Rate [ From Monitor] Respiratory 15 13 19 Rate Respiratory Rate [Anterior Bilateral Throughout] Respiratory Rate [ Generalized] Blood Pressure 129/45 121/37 121/37 O2 Sat by Pulse 97 97 97 Oximetry 06/05/16 06/05/16 06/05/16 07:45 07:58 08:00 Temperature 99.6 F Pulse Rate 128 H 126 H Pulse Rate [ 125 H Anterior Bilateral Throughout] Pulse Rate [ From Monitor] Respiratory 14 14 Rate Respiratory 13 Rate [Anterior Bilateral Throughout] Respiratory Rate [ Generalized] Blood Pressure 112/39 102/48 O2 Sat by Pulse 97 100 Oximetry 06/05/16 06/05/16 06/05/16 08:10 08:15 08:30 Temperature Pulse Rate 126 H 127 H Pulse Rate [ 126 H Anterior Bilateral Throughout] Pulse Rate [ From Monitor] Respiratory 14 16 Rate Respiratory 21 Rate [Anterior Bilateral Throughout] Respiratory Rate [ Generalized] Blood Pressure 92/50 105/48 O2 Sat by Pulse 100 98 Oximetry 06/05/16 06/05/16 06/05/16 08:45 09:00 09:01 Temperature Pulse Rate 124 H 126 H Pulse Rate [ Anterior Bilateral Throughout] Pulse Rate [ 126 H From Monitor] Respiratory 13 25 H 15 Rate Respiratory Rate [Anterior Bilateral Throughout] Respiratory Rate [ Generalized] Blood Pressure 108/46 102/38 O2 Sat by Pulse 98 97 97 Oximetry 06/05/16 06/05/16 06/05/16 09:15 09:30 09:45 Temperature Pulse Rate 123 H 124 H Pulse Rate [ Anterior Bilateral Throughout] Pulse Rate [ From Monitor] Respiratory 15 23 Rate Respiratory Rate [Anterior Bilateral Throughout] Respiratory Rate [ Generalized] Blood Pressure 104/45 109/47 96/49 O2 Sat by Pulse 98 98 98 Oximetry 06/05/16 06/05/16 06/05/16 09:53 10:00 10:15 Temperature Pulse Rate 123 H 122 H 124 H Pulse Rate [ Anterior Bilateral Throughout] Pulse Rate [ From Monitor] Respiratory 14 13 16 Rate Respiratory Rate [Anterior Bilateral Throughout] Respiratory 22 Rate [ Generalized] Blood Pressure 96/49 115/31 111/36 O2 Sat by Pulse 98 98 98 Oximetry 06/05/16 06/05/16 06/05/16 10:31 10:45 11:00 Temperature Pulse Rate 126 H 119 H 131 H Pulse Rate [ Anterior Bilateral Throughout] Pulse Rate [ From Monitor] Respiratory 23 19 16 Rate Respiratory Rate [Anterior Bilateral Throughout] Respiratory Rate [ Generalized] Blood Pressure 101/45 123/46 122/76 O2 Sat by Pulse 99 99 99 Oximetry 06/05/16 06/05/16 06/05/16 11:15 11:52 14:00 Temperature Pulse Rate 130 H 130 H Pulse Rate [ 132 H Anterior Bilateral Throughout] Pulse Rate [ From Monitor] Respiratory 21 25 H Rate Respiratory 23 Rate [Anterior Bilateral Throughout] Respiratory Rate [ Generalized] Blood Pressure 122/76 143/68 O2 Sat by Pulse 99 99 Oximetry 06/05/16 14:15 Temperature Pulse Rate Pulse Rate [ 134 H Anterior Bilateral Throughout] Pulse Rate [ From Monitor] Respiratory Rate Respiratory 19 Rate [Anterior Bilateral Throughout] Respiratory Rate [ Generalized] Blood Pressure O2 Sat by Pulse Oximetry Constitutional: no acute distress, other (sedated) Eyes: non-icteric ENT: oropharynx moist Neck: supple, no lymphadenopathy Effort: mildly labored Ascultation: Bilateral: diminished breath sounds, rales Cardiovascular: regular rate and rhythm Gastrointestinal: normoactive bowel sounds, soft, non-tender, other (distended) Integumentary: normal Extremities: no cyanosis, no edema, pink and warm, pulses normal Neurologic: non-focal exam (grossly), pupils equal and round, unable to assess Psychiatric: other (sedated) CBC and BMP: 06/05/16 14:00 06/05/16 05:00 ABG, PT/INR, D-dimer: ABG POC ABG pH 7.310 (7.35-7.45) L 06/05/16 08:03 POC ABG pCO2 44.1 (35-45) 06/05/16 08:03 POC ABG pO2 87 (80-105) 06/05/16 08:03 POC ABG HCO3 22.2 06/05/16 08:03 POC ABG Total CO2 24 06/05/16 08:03 POC ABG O2 Sat 96 06/05/16 08:03 PT/INR, D-dimer PT 15.5 Sec. (12.2-14.9) H 06/03/16 19:30 INR 1.24 (0.87-1.13) H 06/03/16 19:30 D-Dimer 239.48 ng/mlDDU (0-234) H 05/23/16 14:16 Abnormal lab findings: Abnormal Labs 05/23/16 05/23/16 05/23/16 06:02 09:35 11:22 WBC RBC Hgb Hct MCHC RDW Plt Count Seg Neuts % (Manual) Lymphocytes % (Manual) Nucleated RBC % Seg Neutrophils # Man Lymphocytes # (Manual) Monocytes # (Manual) PT INR Fibrinogen D-Dimer Heparin Anti-Xa Level POC ABG pH POC ABG pCO2 POC ABG pO2 Sodium Potassium Chloride Carbon Dioxide BUN Creatinine Glucose POC Glucose 174 H 232 H Hemoglobin A1c 6.4 H Lactic Acid Calcium Phosphorus Iron TIBC AST ALT Total Creatine Kinase C-Reactive Protein Total Protein Albumin Vitamin B12 Urine WBC (Auto) Urine Creatinine Crossmatch 05/23/16 05/23/16 05/23/16 14:16 16:07 22:23 WBC RBC Hgb Hct MCHC RDW Plt Count Seg Neuts % (Manual) Lymphocytes % (Manual) Nucleated RBC % Seg Neutrophils # Man Lymphocytes # (Manual) Monocytes # (Manual) PT INR Fibrinogen D-Dimer 239.48 H Heparin Anti-Xa Level POC ABG pH POC ABG pCO2 POC ABG pO2 Sodium Potassium Chloride Carbon Dioxide BUN Creatinine Glucose POC Glucose 126 H 171 H Hemoglobin A1c Lactic Acid Calcium Phosphorus Iron TIBC AST ALT Total Creatine Kinase C-Reactive Protein Total Protein Albumin Vitamin B12 Urine WBC (Auto) Urine Creatinine Crossmatch 05/24/16 05/24/16 05/24/16 08:08 08:08 08:19 WBC RBC 3.24 L Hgb 9.6 L Hct 28.6 L MCHC RDW 15.7 H Plt Count Seg Neuts % (Manual) 71.0 H Lymphocytes % (Manual) 7.0 L Nucleated RBC % Seg Neutrophils # Man Lymphocytes # (Manual) 0.8 L Monocytes # (Manual) PT INR Fibrinogen D-Dimer Heparin Anti-Xa Level POC ABG pH POC ABG pCO2 POC ABG pO2 Sodium 132 L Potassium Chloride 93.9 L Carbon Dioxide 18 L BUN 39 H Creatinine Glucose 166 H POC Glucose 173 H Hemoglobin A1c Lactic Acid Calcium Phosphorus Iron TIBC AST ALT Total Creatine Kinase C-Reactive Protein Total Protein Albumin Vitamin B12 Urine WBC (Auto) Urine Creatinine Crossmatch 05/24/16 05/24/16 05/24/16 11:55 17:15 22:18 WBC RBC Hgb Hct MCHC RDW Plt Count Seg Neuts % (Manual) Lymphocytes % (Manual) Nucleated RBC % Seg Neutrophils # Man Lymphocytes # (Manual) Monocytes # (Manual) PT INR Fibrinogen D-Dimer Heparin Anti-Xa Level POC ABG pH POC ABG pCO2 POC ABG pO2 Sodium Potassium Chloride Carbon Dioxide BUN Creatinine Glucose POC Glucose 210 H 147 H 163 H Hemoglobin A1c Lactic Acid Calcium Phosphorus Iron TIBC AST ALT Total Creatine Kinase C-Reactive Protein Total Protein Albumin Vitamin B12 Urine WBC (Auto) Urine Creatinine Crossmatch 05/25/16 05/25/16 05/25/16 08:43 13:38 14:19 WBC RBC Hgb 10.0 L Hct 30.4 L MCHC RDW Plt Count Seg Neuts % (Manual) Lymphocytes % (Manual) Nucleated RBC % Seg Neutrophils # Man Lymphocytes # (Manual) Monocytes # (Manual) PT INR Fibrinogen D-Dimer Heparin Anti-Xa Level POC ABG pH POC ABG pCO2 POC ABG pO2 Sodium Potassium Chloride Carbon Dioxide BUN Creatinine Glucose POC Glucose 177 H 180 H Hemoglobin A1c Lactic Acid Calcium Phosphorus Iron TIBC AST ALT Total Creatine Kinase C-Reactive Protein Total Protein Albumin Vitamin B12 Urine WBC (Auto) Urine Creatinine Crossmatch 05/25/16 05/25/16 05/25/16 16:16 16:25 21:32 WBC RBC Hgb Hct MCHC RDW Plt Count Seg Neuts % (Manual) Lymphocytes % (Manual) Nucleated RBC % Seg Neutrophils # Man Lymphocytes # (Manual) Monocytes # (Manual) PT INR Fibrinogen D-Dimer Heparin Anti-Xa Level POC ABG pH POC ABG pCO2 34.3 L POC ABG pO2 114 H Sodium Potassium Chloride Carbon Dioxide BUN Creatinine Glucose POC Glucose 193 H 183 H Hemoglobin A1c Lactic Acid Calcium Phosphorus Iron TIBC AST ALT Total Creatine Kinase C-Reactive Protein Total Protein Albumin Vitamin B12 Urine WBC (Auto) Urine Creatinine Crossmatch 05/26/16 05/26/16 05/26/16 00:06 07:42 10:17 WBC RBC Hgb Hct MCHC RDW Plt Count Seg Neuts % (Manual) Lymphocytes % (Manual) Nucleated RBC % Seg Neutrophils # Man Lymphocytes # (Manual) Monocytes # (Manual) PT INR Fibrinogen D-Dimer Heparin Anti-Xa Level 1.23 H 0.98 H POC ABG pH POC ABG pCO2 POC ABG pO2 Sodium Potassium Chloride Carbon Dioxide BUN Creatinine Glucose POC Glucose 206 H Hemoglobin A1c Lactic Acid Calcium Phosphorus Iron TIBC AST ALT Total Creatine Kinase C-Reactive Protein Total Protein Albumin Vitamin B12 Urine WBC (Auto) Urine Creatinine Crossmatch 05/26/16 05/26/16 05/26/16 11:57 12:38 13:52 WBC 19.7 H RBC 2.56 L Hgb 7.4 L Hct 23.2 L D MCHC RDW 15.8 H Plt Count Seg Neuts % (Manual) Lymphocytes % (Manual) Nucleated RBC % Seg Neutrophils # Man Lymphocytes # (Manual) Monocytes # (Manual) PT INR Fibrinogen D-Dimer Heparin Anti-Xa Level POC ABG pH 7.298 L POC ABG pCO2 27.8 L POC ABG pO2 132 H Sodium Potassium Chloride Carbon Dioxide BUN Creatinine Glucose POC Glucose 338 H Hemoglobin A1c Lactic Acid Calcium Phosphorus Iron TIBC AST ALT Total Creatine Kinase C-Reactive Protein Total Protein Albumin Vitamin B12 Urine WBC (Auto) Urine Creatinine Crossmatch 05/26/16 05/26/16 05/26/16 15:47 15:47 17:06 WBC RBC Hgb Hct MCHC RDW Plt Count Seg Neuts % (Manual) Lymphocytes % (Manual) Nucleated RBC % Seg Neutrophils # Man Lymphocytes # (Manual) Monocytes # (Manual) PT INR Fibrinogen D-Dimer Heparin Anti-Xa Level 1.35 H POC ABG pH 7.108 L POC ABG pCO2 POC ABG pO2 287 H Sodium Potassium Chloride Carbon Dioxide BUN Creatinine Glucose POC Glucose Hemoglobin A1c Lactic Acid 9.0 H* Calcium Phosphorus Iron TIBC AST ALT Total Creatine Kinase C-Reactive Protein Total Protein Albumin Vitamin B12 Urine WBC (Auto) Urine Creatinine Crossmatch 05/26/16 05/26/16 05/26/16 17:12 17:15 17:53 WBC RBC Hgb Hct MCHC RDW Plt Count Seg Neuts % (Manual) Lymphocytes % (Manual) Nucleated RBC % Seg Neutrophils # Man Lymphocytes # (Manual) Monocytes # (Manual) PT INR Fibrinogen D-Dimer Heparin Anti-Xa Level POC ABG pH 7.061 L POC ABG pCO2 47.3 H POC ABG pO2 35 L Sodium Potassium Chloride Carbon Dioxide BUN Creatinine Glucose POC Glucose 275 H Hemoglobin A1c Lactic Acid Calcium Phosphorus Iron TIBC AST ALT Total Creatine Kinase C-Reactive Protein Total Protein Albumin Vitamin B12 Urine WBC (Auto) Urine Creatinine Crossmatch See Detail 05/26/16 05/26/16 05/26/16 17:53 22:08 23:00 WBC RBC Hgb 6.7 L Hct 22.3 L MCHC RDW Plt Count Seg Neuts % (Manual) Lymphocytes % (Manual) Nucleated RBC % Seg Neutrophils # Man Lymphocytes # (Manual) Monocytes # (Manual) PT INR Fibrinogen D-Dimer Heparin Anti-Xa Level POC ABG pH 7.195 L POC ABG pCO2 POC ABG pO2 129 H Sodium Potassium Chloride Carbon Dioxide BUN Creatinine Glucose POC Glucose 250 H Hemoglobin A1c Lactic Acid Calcium Phosphorus Iron TIBC AST ALT Total Creatine Kinase C-Reactive Protein Total Protein Albumin Vitamin B12 Urine WBC (Auto) Urine Creatinine Crossmatch 05/27/16 05/27/16 05/27/16 00:26 01:00 05:13 WBC RBC Hgb 8.0 L Hct 24.6 L MCHC RDW Plt Count Seg Neuts % (Manual) Lymphocytes % (Manual) Nucleated RBC % Seg Neutrophils # Man Lymphocytes # (Manual) Monocytes # (Manual) PT INR Fibrinogen D-Dimer Heparin Anti-Xa Level POC ABG pH 7.273 L POC ABG pCO2 POC ABG pO2 62 L Sodium Potassium Chloride Carbon Dioxide BUN Creatinine Glucose POC Glucose Hemoglobin A1c Lactic Acid Calcium Phosphorus Iron TIBC AST ALT Total Creatine Kinase C-Reactive Protein Total Protein Albumin Vitamin B12 Urine WBC (Auto) Urine Creatinine Crossmatch 05/27/16 05/27/16 05/27/16 05:50 05:50 07:54 WBC RBC Hgb 7.6 L Hct 23.1 L MCHC RDW Plt Count Seg Neuts % (Manual) Lymphocytes % (Manual) Nucleated RBC % Seg Neutrophils # Man Lymphocytes # (Manual) Monocytes # (Manual) PT INR Fibrinogen D-Dimer Heparin Anti-Xa Level POC ABG pH POC ABG pCO2 POC ABG pO2 Sodium Potassium Chloride Carbon Dioxide BUN Creatinine Glucose POC Glucose 385 H Hemoglobin A1c Lactic Acid 4.0 H* Calcium Phosphorus Iron TIBC AST ALT Total Creatine Kinase C-Reactive Protein Total Protein Albumin Vitamin B12 Urine WBC (Auto) Urine Creatinine Crossmatch 05/27/16 05/27/16 05/27/16 08:30 11:57 16:04 WBC RBC Hgb Hct MCHC RDW Plt Count Seg Neuts % (Manual) Lymphocytes % (Manual) Nucleated RBC % Seg Neutrophils # Man Lymphocytes # (Manual) Monocytes # (Manual) PT INR Fibrinogen D-Dimer Heparin Anti-Xa Level POC ABG pH POC ABG pCO2 POC ABG pO2 Sodium Potassium Chloride 94.8 L Carbon Dioxide BUN 61 H Creatinine 2.9 H D Glucose 411 H POC Glucose 394 H 292 H Hemoglobin A1c Lactic Acid Calcium 6.3 L D Phosphorus Iron TIBC AST 7200 H ALT 4300 H Total Creatine Kinase C-Reactive Protein Total Protein 4.5 L D Albumin 3.0 L Vitamin B12 Urine WBC (Auto) Urine Creatinine Crossmatch 05/27/16 05/27/16 05/27/16 17:15 18:00 18:25 WBC RBC Hgb 7.5 L Hct 22.5 L MCHC RDW Plt Count Seg Neuts % (Manual) Lymphocytes % (Manual) Nucleated RBC % Seg Neutrophils # Man Lymphocytes # (Manual) Monocytes # (Manual) PT INR Fibrinogen D-Dimer Heparin Anti-Xa Level POC ABG pH POC ABG pCO2 POC ABG pO2 Sodium Potassium Chloride Carbon Dioxide BUN Creatinine Glucose POC Glucose Hemoglobin A1c Lactic Acid Calcium Phosphorus Iron TIBC AST 8515 H ALT 4517 H Total Creatine Kinase C-Reactive Protein Total Protein 4.6 L Albumin 2.8 L Vitamin B12 Urine WBC (Auto) Urine Creatinine 69.9 H Crossmatch 0105/28/16 05/28/16 21:44 04:50 04:50 WBC 19.9 H RBC 2.66 L Hgb 7.6 L Hct 23.3 L MCHC RDW 15.4 H Plt Count 101 L Seg Neuts % (Manual) Lymphocytes % (Manual) Nucleated RBC % Seg Neutrophils # Man Lymphocytes # (Manual) Monocytes # (Manual) PT INR Fibrinogen D-Dimer Heparin Anti-Xa Level POC ABG pH POC ABG pCO2 POC ABG pO2 Sodium Potassium Chloride Carbon Dioxide BUN 79 H Creatinine 3.9 H Glucose 166 H POC Glucose 176 H Hemoglobin A1c Lactic Acid Calcium 6.3 L Phosphorus Iron TIBC AST 5609 H ALT 4060 H Total Creatine Kinase 929 H C-Reactive Protein Total Protein 4.8 L Albumin 2.9 L Vitamin B12 Urine WBC (Auto) Urine Creatinine Crossmatch 05/28/16 05/28/16 05/28/16 05:17 07:38 12:41 WBC RBC Hgb Hct MCHC RDW Plt Count Seg Neuts % (Manual) Lymphocytes % (Manual) Nucleated RBC % Seg Neutrophils # Man Lymphocytes # (Manual) Monocytes # (Manual) PT INR Fibrinogen D-Dimer Heparin Anti-Xa Level POC ABG pH POC ABG pCO2 POC ABG pO2 115 H Sodium Potassium Chloride Carbon Dioxide BUN Creatinine Glucose POC Glucose 168 H 173 H Hemoglobin A1c Lactic Acid Calcium Phosphorus Iron TIBC AST ALT Total Creatine Kinase C-Reactive Protein Total Protein Albumin Vitamin B12 Urine WBC (Auto) Urine Creatinine Crossmatch 05/28/16 05/28/16 05/29/16 16:12 21:45 04:15 WBC RBC Hgb Hct MCHC RDW Plt Count 71 L Seg Neuts % (Manual) Lymphocytes % (Manual) Nucleated RBC % Seg Neutrophils # Man Lymphocytes # (Manual) Monocytes # (Manual) PT INR Fibrinogen D-Dimer Heparin Anti-Xa Level POC ABG pH POC ABG pCO2 POC ABG pO2 Sodium Potassium Chloride Carbon Dioxide BUN Creatinine Glucose POC Glucose 210 H 221 H Hemoglobin A1c Lactic Acid Calcium Phosphorus Iron TIBC AST ALT Total Creatine Kinase C-Reactive Protein Total Protein Albumin Vitamin B12 Urine WBC (Auto) Urine Creatinine Crossmatch 05/29/16 05/29/16 05/29/16 04:15 06:14 07:28 WBC RBC Hgb Hct MCHC RDW Plt Count Seg Neuts % (Manual) Lymphocytes % (Manual) Nucleated RBC % Seg Neutrophils # Man Lymphocytes # (Manual) Monocytes # (Manual) PT INR Fibrinogen D-Dimer Heparin Anti-Xa Level POC ABG pH 7.285 L POC ABG pCO2 POC ABG pO2 63 L Sodium Potassium Chloride Carbon Dioxide 21 L BUN 98 H Creatinine 4.7 H Glucose 220 H POC Glucose 232 H Hemoglobin A1c Lactic Acid Calcium 5.8 L* Phosphorus Iron TIBC AST 1464 H ALT 2628 H Total Creatine Kinase 792 H C-Reactive Protein Total Protein 4.5 L Albumin 2.8 L Vitamin B12 Urine WBC (Auto) Urine Creatinine Crossmatch 05/29/16 05/29/16 05/29/16 11:33 11:58 15:22 WBC RBC Hgb Hct MCHC RDW Plt Count Seg Neuts % (Manual) Lymphocytes % (Manual) Nucleated RBC % Seg Neutrophils # Man Lymphocytes # (Manual) Monocytes # (Manual) PT INR Fibrinogen D-Dimer Heparin Anti-Xa Level POC ABG pH 7.291 L POC ABG pCO2 45.3 H POC ABG pO2 Sodium Potassium Chloride Carbon Dioxide BUN Creatinine Glucose POC Glucose 196 H 184 H Hemoglobin A1c Lactic Acid Calcium Phosphorus Iron TIBC AST ALT Total Creatine Kinase C-Reactive Protein Total Protein Albumin Vitamin B12 Urine WBC (Auto) Urine Creatinine Crossmatch 05/29/16 05/30/16 05/30/16 22:16 04:53 05:30 WBC RBC Hgb Hct MCHC RDW Plt Count Seg Neuts % (Manual) Lymphocytes % (Manual) Nucleated RBC % Seg Neutrophils # Man Lymphocytes # (Manual) Monocytes # (Manual) PT INR Fibrinogen D-Dimer Heparin Anti-Xa Level POC ABG pH 7.303 L POC ABG pCO2 POC ABG pO2 Sodium Potassium 5.5 H Chloride Carbon Dioxide BUN 113 H Creatinine 5.3 H Glucose 240 H POC Glucose 274 H Hemoglobin A1c Lactic Acid Calcium 5.5 L* Phosphorus 6.6 H Iron TIBC AST 380 H ALT 1647 H Total Creatine Kinase 2131 H C-Reactive Protein Total Protein 4.4 L Albumin 2.8 L Vitamin B12 Urine WBC (Auto) Urine Creatinine Crossmatch 05/30/16 05/30/16 05/30/16 05:30 06:01 08:25 WBC 15.4 H RBC 2.45 L Hgb 7.0 L Hct 22.0 L MCHC RDW 16.1 H Plt Count 51 L Seg Neuts % (Manual) Lymphocytes % (Manual) 9.0 L Nucleated RBC % 7.0 H Seg Neutrophils # Man 8.5 H Lymphocytes # (Manual) Monocytes # (Manual) PT INR Fibrinogen D-Dimer Heparin Anti-Xa Level POC ABG pH POC ABG pCO2 POC ABG pO2 Sodium Potassium Chloride Carbon Dioxide BUN Creatinine Glucose POC Glucose 268 H Hemoglobin A1c Lactic Acid Calcium Phosphorus Iron TIBC AST ALT Total Creatine Kinase C-Reactive Protein Total Protein Albumin Vitamin B12 Urine WBC (Auto) Urine Creatinine Crossmatch See Detail 05/30/16 05/30/16 05/30/16 12:04 18:54 22:23 WBC RBC Hgb Hct MCHC RDW Plt Count Seg Neuts % (Manual) Lymphocytes % (Manual) Nucleated RBC % Seg Neutrophils # Man Lymphocytes # (Manual) Monocytes # (Manual) PT INR Fibrinogen D-Dimer Heparin Anti-Xa Level POC ABG pH POC ABG pCO2 POC ABG pO2 Sodium Potassium Chloride Carbon Dioxide BUN Creatinine Glucose POC Glucose 251 H 210 H 199 H Hemoglobin A1c Lactic Acid Calcium Phosphorus Iron TIBC AST ALT Total Creatine Kinase C-Reactive Protein Total Protein Albumin Vitamin B12 Urine WBC (Auto) Urine Creatinine Crossmatch 05/31/16 05/31/16 05/31/16 05:50 05:50 06:19 WBC 22.0 H RBC 3.61 L Hgb 10.3 L D Hct 31.9 L D MCHC RDW 15.6 H Plt Count 42 L Seg Neuts % (Manual) Lymphocytes % (Manual) Nucleated RBC % Seg Neutrophils # Man Lymphocytes # (Manual) Monocytes # (Manual) PT INR Fibrinogen D-Dimer Heparin Anti-Xa Level POC ABG pH 7.320 L POC ABG pCO2 45.2 H POC ABG pO2 Sodium 134 L Potassium 5.1 H Chloride 97.0 L Carbon Dioxide BUN 77 H Creatinine 3.6 H Glucose 225 H POC Glucose Hemoglobin A1c Lactic Acid Calcium 6.0 L Phosphorus Iron TIBC AST 133 H ALT 1165 H Total Creatine Kinase 1486 H C-Reactive Protein Total Protein 4.5 L Albumin 2.7 L Vitamin B12 Urine WBC (Auto) Urine Creatinine Crossmatch 05/31/16 05/31/16 05/31/16 07:42 12:13 12:34 WBC RBC Hgb Hct MCHC RDW Plt Count Seg Neuts % (Manual) Lymphocytes % (Manual) Nucleated RBC % Seg Neutrophils # Man Lymphocytes # (Manual) Monocytes # (Manual) PT INR Fibrinogen D-Dimer Heparin Anti-Xa Level POC ABG pH 7.298 L POC ABG pCO2 POC ABG pO2 Sodium Potassium Chloride Carbon Dioxide BUN Creatinine Glucose POC Glucose 250 H 209 H Hemoglobin A1c Lactic Acid Calcium Phosphorus Iron TIBC AST ALT Total Creatine Kinase C-Reactive Protein Total Protein Albumin Vitamin B12 Urine WBC (Auto) Urine Creatinine Crossmatch 05/31/16 05/31/16 05/31/16 13:45 17:43 21:38 WBC RBC Hgb Hct MCHC RDW Plt Count Seg Neuts % (Manual) Lymphocytes % (Manual) Nucleated RBC % Seg Neutrophils # Man Lymphocytes # (Manual) Monocytes # (Manual) PT INR Fibrinogen D-Dimer Heparin Anti-Xa Level POC ABG pH POC ABG pCO2 POC ABG pO2 Sodium Potassium Chloride Carbon Dioxide BUN Creatinine Glucose POC Glucose 242 H 248 H Hemoglobin A1c Lactic Acid Calcium Phosphorus Iron TIBC AST ALT Total Creatine Kinase C-Reactive Protein 4.10 H Total Protein Albumin Vitamin B12 Urine WBC (Auto) Urine Creatinine Crossmatch 06/01/16 06/01/16 06/01/16 03:35 03:35 04:16 WBC 28.8 H RBC 3.51 L Hgb 10.0 L Hct 31.2 L MCHC RDW 15.3 H Plt Count 42 L Seg Neuts % (Manual) 74.0 H Lymphocytes % (Manual) 3.0 L Nucleated RBC % 2.0 H Seg Neutrophils # Man 21.3 H Lymphocytes # (Manual) 0.9 L Monocytes # (Manual) 1.7 H PT INR Fibrinogen D-Dimer Heparin Anti-Xa Level POC ABG pH 7.332 L POC ABG pCO2 POC ABG pO2 56 L Sodium Potassium Chloride Carbon Dioxide 21 L BUN 97 H Creatinine 3.9 H Glucose 206 H POC Glucose Hemoglobin A1c Lactic Acid Calcium 5.4 L* Phosphorus Iron TIBC AST 70 H ALT 732 H Total Creatine Kinase C-Reactive Protein Total Protein 4.3 L Albumin 2.4 L Vitamin B12 Urine WBC (Auto) Urine Creatinine Crossmatch 06/01/16 06/01/16 06/01/16 07:31 11:38 15:23 WBC RBC Hgb Hct MCHC RDW Plt Count Seg Neuts % (Manual) Lymphocytes % (Manual) Nucleated RBC % Seg Neutrophils # Man Lymphocytes # (Manual) Monocytes # (Manual) PT INR Fibrinogen D-Dimer Heparin Anti-Xa Level POC ABG pH POC ABG pCO2 POC ABG pO2 Sodium Potassium Chloride Carbon Dioxide BUN Creatinine Glucose POC Glucose 232 H 230 H 239 H Hemoglobin A1c Lactic Acid Calcium Phosphorus Iron TIBC AST ALT Total Creatine Kinase C-Reactive Protein Total Protein Albumin Vitamin B12 Urine WBC (Auto) Urine Creatinine Crossmatch 06/01/16 06/02/16 06/02/16 17:15 00:32 03:17 WBC RBC Hgb Hct MCHC RDW Plt Count Seg Neuts % (Manual) Lymphocytes % (Manual) Nucleated RBC % Seg Neutrophils # Man Lymphocytes # (Manual) Monocytes # (Manual) PT INR Fibrinogen D-Dimer Heparin Anti-Xa Level POC ABG pH 7.341 L POC ABG pCO2 POC ABG pO2 Sodium Potassium Chloride Carbon Dioxide BUN Creatinine Glucose POC Glucose 256 H Hemoglobin A1c Lactic Acid Calcium Phosphorus Iron TIBC AST ALT Total Creatine Kinase C-Reactive Protein Total Protein Albumin Vitamin B12 Urine WBC (Auto) 63.0 H Urine Creatinine Crossmatch 06/02/16 06/02/16 06/02/16 04:00 04:00 07:51 WBC 37.1 H RBC 3.18 L Hgb 9.2 L Hct 28.5 L MCHC RDW Plt Count 49 L Seg Neuts % (Manual) Lymphocytes % (Manual) Nucleated RBC % Seg Neutrophils # Man Lymphocytes # (Manual) Monocytes # (Manual) PT INR Fibrinogen D-Dimer Heparin Anti-Xa Level POC ABG pH POC ABG pCO2 POC ABG pO2 Sodium Potassium Chloride Carbon Dioxide BUN 124 H Creatinine 5.0 H Glucose 242 H POC Glucose 245 H Hemoglobin A1c Lactic Acid Calcium 5.3 L* Phosphorus Iron TIBC AST 50 H ALT 458 H Total Creatine Kinase C-Reactive Protein Total Protein 4.1 L Albumin 2.3 L Vitamin B12 Urine WBC (Auto) Urine Creatinine Crossmatch 06/02/16 06/02/16 06/02/16 11:41 16:10 23:57 WBC RBC Hgb Hct MCHC RDW Plt Count Seg Neuts % (Manual) Lymphocytes % (Manual) Nucleated RBC % Seg Neutrophils # Man Lymphocytes # (Manual) Monocytes # (Manual) PT INR Fibrinogen D-Dimer Heparin Anti-Xa Level POC ABG pH POC ABG pCO2 POC ABG pO2 Sodium Potassium Chloride Carbon Dioxide BUN Creatinine Glucose POC Glucose 254 H 215 H 162 H Hemoglobin A1c Lactic Acid Calcium Phosphorus Iron TIBC AST ALT Total Creatine Kinase C-Reactive Protein Total Protein Albumin Vitamin B12 Urine WBC (Auto) Urine Creatinine Crossmatch 06/03/16 06/03/16 06/03/16 04:50 04:50 13:40 WBC 37.6 H RBC 2.72 L Hgb 7.8 L Hct 24.5 L MCHC RDW Plt Count 48 L Seg Neuts % (Manual) 96.0 H Lymphocytes % (Manual) 1.5 L Nucleated RBC % Seg Neutrophils # Man 36.1 H Lymphocytes # (Manual) 0.6 L Monocytes # (Manual) PT INR Fibrinogen D-Dimer Heparin Anti-Xa Level POC ABG pH POC ABG pCO2 POC ABG pO2 Sodium Potassium Chloride Carbon Dioxide BUN 76 H Creatinine 3.5 H Glucose POC Glucose Hemoglobin A1c Lactic Acid Calcium 5.2 L* Phosphorus Iron TIBC AST ALT 307 H Total Creatine Kinase C-Reactive Protein Total Protein 4.0 L Albumin 2.3 L Vitamin B12 Urine WBC (Auto) Urine Creatinine Crossmatch See Detail 06/03/16 06/03/16 06/03/16 19:30 19:30 19:30 WBC 38.3 H RBC 2.87 L Hgb 8.3 L Hct 25.5 L MCHC RDW 15.3 H Plt Count 59 L Seg Neuts % (Manual) 97.0 H Lymphocytes % (Manual) 1.0 L Nucleated RBC % 2.0 H Seg Neutrophils # Man 37.2 H Lymphocytes # (Manual) 0.4 L Monocytes # (Manual) PT 15.5 H INR 1.24 H Fibrinogen 191 L D-Dimer Heparin Anti-Xa Level POC ABG pH POC ABG pCO2 POC ABG pO2 Sodium Potassium Chloride Carbon Dioxide BUN Creatinine Glucose POC Glucose Hemoglobin A1c Lactic Acid Calcium Phosphorus Iron 31 L TIBC 151 L AST ALT Total Creatine Kinase C-Reactive Protein Total Protein Albumin Vitamin B12 Urine WBC (Auto) Urine Creatinine Crossmatch 06/03/16 06/03/16 06/04/16 19:30 23:28 05:10 WBC RBC Hgb Hct MCHC RDW Plt Count Seg Neuts % (Manual) Lymphocytes % (Manual) Nucleated RBC % Seg Neutrophils # Man Lymphocytes # (Manual) Monocytes # (Manual) PT INR Fibrinogen D-Dimer Heparin Anti-Xa Level POC ABG pH 7.310 L POC ABG pCO2 POC ABG pO2 73 L Sodium Potassium Chloride Carbon Dioxide BUN Creatinine Glucose POC Glucose 118 H Hemoglobin A1c Lactic Acid Calcium Phosphorus Iron TIBC AST ALT Total Creatine Kinase C-Reactive Protein Total Protein Albumin Vitamin B12 1851 H Urine WBC (Auto) Urine Creatinine Crossmatch 06/04/16 06/04/16 06/04/16 05:25 05:25 05:25 WBC 35.9 H RBC 2.61 L Hgb 7.4 L Hct 23.7 L MCHC 31 L RDW 15.4 H Plt Count 63 L Seg Neuts % (Manual) 93.0 H Lymphocytes % (Manual) 0 L Nucleated RBC % 3.0 H Seg Neutrophils # Man 33.4 H Lymphocytes # (Manual) 0.0 L Monocytes # (Manual) PT INR Fibrinogen 157 L D-Dimer Heparin Anti-Xa Level POC ABG pH POC ABG pCO2 POC ABG pO2 Sodium Potassium 5.5 H Chloride Carbon Dioxide 18 L BUN 95 H Creatinine 4.3 H Glucose 119 H POC Glucose Hemoglobin A1c Lactic Acid Calcium 5.0 L* Phosphorus Iron TIBC AST 57 H ALT 214 H Total Creatine Kinase C-Reactive Protein Total Protein 3.5 L Albumin 2.0 L Vitamin B12 Urine WBC (Auto) Urine Creatinine Crossmatch 06/04/16 06/04/16 06/04/16 05:46 11:24 17:35 WBC RBC Hgb Hct MCHC RDW Plt Count Seg Neuts % (Manual) Lymphocytes % (Manual) Nucleated RBC % Seg Neutrophils # Man Lymphocytes # (Manual) Monocytes # (Manual) PT INR Fibrinogen D-Dimer Heparin Anti-Xa Level POC ABG pH POC ABG pCO2 POC ABG pO2 Sodium Potassium Chloride Carbon Dioxide BUN Creatinine Glucose POC Glucose 136 H 184 H 223 H Hemoglobin A1c Lactic Acid Calcium Phosphorus Iron TIBC AST ALT Total Creatine Kinase C-Reactive Protein Total Protein Albumin Vitamin B12 Urine WBC (Auto) Urine Creatinine Crossmatch 06/04/16 06/04/16 06/05/16 21:00 23:43 05:00 WBC 38.5 H RBC 2.94 L Hgb 8.6 L Hct 26.5 L MCHC RDW Plt Count 62 L Seg Neuts % (Manual) 71.0 H Lymphocytes % (Manual) 4.0 L Nucleated RBC % Seg Neutrophils # Man 27.3 H Lymphocytes # (Manual) Monocytes # (Manual) 1.2 H PT INR Fibrinogen D-Dimer Heparin Anti-Xa Level POC ABG pH POC ABG pCO2 POC ABG pO2 Sodium Potassium 5.2 H Chloride Carbon Dioxide BUN 69 H Creatinine 3.4 H Glucose 192 H POC Glucose 167 H Hemoglobin A1c Lactic Acid Calcium 6.4 L D Phosphorus Iron TIBC AST 57 H ALT 189 H Total Creatine Kinase C-Reactive Protein Total Protein 4.2 L Albumin 2.6 L Vitamin B12 Urine WBC (Auto) Urine Creatinine Crossmatch 06/05/16 06/05/16 05:53 08:03 WBC RBC Hgb Hct MCHC RDW Plt Count Seg Neuts % (Manual) Lymphocytes % (Manual) Nucleated RBC % Seg Neutrophils # Man Lymphocytes # (Manual) Monocytes # (Manual) PT INR Fibrinogen D-Dimer Heparin Anti-Xa Level POC ABG pH 7.310 L POC ABG pCO2 POC ABG pO2 Sodium Potassium Chloride Carbon Dioxide BUN Creatinine Glucose POC Glucose 226 H Hemoglobin A1c Lactic Acid Calcium Phosphorus Iron TIBC AST ALT Total Creatine Kinase C-Reactive Protein Total Protein Albumin Vitamin B12 Urine WBC (Auto) Urine Creatinine Crossmatch
[2016-06-05 14:54] LABS: Platelet Count 76 K/mm3 (140-440); White Blood Count 53.4 K/mm3 (4.5-11.0)
[2016-06-05 15:29] LABS: Blastocytes % (Manual) 0 %
[2016-06-05 15:30] LABS: Anisocytosis 1+; Basophils % (Manual) 0 % (0.0-1.8); Eosinophils % (Manual) 0 % (0.0-4.3); Hypochromasia Few; Polychromasia Few; Total Cells Counted Percent 0
[2016-06-05 15:31] LABS: Diff Status Complete; Ovalocytes Rare; Platelet Estimate Appears Decreased; Poikilocytosis Rare
--- NOTE | 2016-06-05 16:39 | Progress Note ---
Assessment and Plan Assessment and plan: Echocardiogram from May 26 shows diastolic dysfunction, systolic dysfunction is grossly normal Patient is a 80-year-old man with a history of type 2 diabetes mellitus, hypertension, dyslipidemia and chronic respiratory failure on 3 L oxygen at home due to COPD who presented with shortness breath and a cough on 05/22/2016. He was admitted for COPD exacerbation, He was placed on BiPAP. And then intubated on May 26, 2016. So, he was treated with iv heparin for suspected thromboembolism while awaiting VQ scan versus CTA chest. During his hospital course hematocrit started dropping, requiring blood transfusion and consultation with gastroenterology, heparin was dc. Also, Renal function is deteriorating questionable needing dialysis Acute on chronic hypoxic respiratory failure/ COPD exacerbation Continue abx, continue steroids and nebulizer treatments, continue daily chest x -ray, will need VQ scan vs CTA (depening on renal function )when stable enough to do the test, will need IVC filter is positive Acute blood loss anemia due to retoperitoneal hematoma, transfuse as needed, avoid blood thinners Acute kidney injury- Status post Vas-Cath placement, continue renal replacement therapy Diabetes mellitus uncontrolled Continuing insulin SBO/Ileus continue NG Tube to suction, surgery input appreciated [employer] consult for TPN Sepsis continue current abx, ID input appreciated, fup cultures Critical care time spent: 35 minutes History Interval history: continues to have hypotension on and off needing pressors, signs of multi-organ failure, Hospitalist Physical - Physical exam Narrative exam: General: Moderate respiratory distress, taking deep breaths with sighs HEENT: MMM, EOMI cardiac: S1-S2 heard lungs: Bibasilar crackles, ventilated breath sounds abdomen: Distended, bowel sounds positive extremities: 2+ edema in all extremities Skin: no rash or lesion Neuro: Intubated sedated - Constitutional Vitals: Temp Pulse Resp BP Pulse Ox 99.6 F 137 H 30 H 159/97 98 06/05/16 08:00 06/05/16 16:06 06/05/16 16:06 06/05/16 16:06 06/05/16 16:06 General appearance: Present: other (intubated) Results - Labs CBC & Chem 7: 06/05/16 22:30 06/06/16 03:48 Labs: Laboratory Last Values WBC 53.4 K/mm3 (4.5-11.0) H* 06/05/16 14:00 RBC 3.24 M/mm3 (3.65-5.03) L 06/05/16 14:00 Hgb 9.3 gm/dl (11.8-15.2) L 06/05/16 14:00 Hct 29.0 % (35.5-45.6) L 06/05/16 14:00 MCV 90 fl (84-94) 06/05/16 14:00 MCH 29 pg (28-32) 06/05/16 14:00 MCHC 32 % (32-34) 06/05/16 14:00 RDW 15.4 % (13.2-15.2) H 06/05/16 14:00 Plt Count 76 K/mm3 (140-440) L 06/05/16 14:00 Lymph % (Auto) 13.0 % (13.4-35.0) L 05/22/16 14:25 [place] % (Auto) 13.1 % (0.0-7.3) H 05/22/16 14:25 Eos % (Auto) 1.1 % (0.0-4.3) 05/22/16 14:25 Baso % (Auto) 0.6 % (0.0-1.8) 05/22/16 14:25 Lymph # 0.8 K/mm3 (1.2-5.4) L 05/22/16 14:25 [place] # 0.8 K/mm3 (0.0-0.8) 05/22/16 14:25 Eos # 0.1 K/mm3 (0.0-0.4) 05/22/16 14:25 Baso # 0.0 K/mm3 (0.0-0.1) 05/22/16 14:25 Add Manual Diff Complete 06/05/16 14:00 Total Counted 200 06/05/16 14:00 Seg Neutrophils % [employer] 06/05/16 14:00 Seg Neuts % (Manual) 100.0 % (40.0-70.0) H 06/05/16 14:00 Band Neutrophils % 0 % 06/05/16 14:00 Lymphocytes % (Manual) 0 % (13.4-35.0) L 06/05/16 14:00 Reactive Lymphs % (Man) 0 % 06/05/16 14:00 Monocytes % (Manual) 0 % (0.0-7.3) 06/05/16 14:00 Eosinophils % (Manual) 0 % (0.0-4.3) 06/05/16 14:00 Basophils % (Manual) 0 % (0.0-1.8) 06/05/16 14:00 Metamyelocytes % 0 % 06/05/16 14:00 Myelocytes % 0 % 06/05/16 14:00 Promyelocytes % 0 % 06/05/16 14:00 Blast Cells % 0 % 06/05/16 14:00 Nucleated RBC % Not Reportable 06/05/16 14:00 Seg Neutrophils # 4.4 K/mm3 (1.8-7.7) 05/22/16 14:25 Seg Neutrophils # Man 53.4 K/mm3 (1.8-7.7) H 06/05/16 14:00 Band Neutrophils # 0.0 K/mm3 06/05/16 14:00 Lymphocytes # (Manual) 0.0 K/mm3 (1.2-5.4) L 06/05/16 14:00 Abs React Lymphs (Man) 0.0 K/mm3 06/05/16 14:00 Monocytes # (Manual) 0.0 K/mm3 (0.0-0.8) 06/05/16 14:00 Eosinophils # (Manual) 0.0 K/mm3 (0.0-0.4) 06/05/16 14:00 Basophils # (Manual) 0.0 K/mm3 (0.0-0.1) 06/05/16 14:00 Metamyelocytes # 0.0 K/mm3 06/05/16 14:00 Myelocytes # 0.0 K/mm3 06/05/16 14:00 Promyelocytes # 0.0 K/mm3 06/05/16 14:00 Blast Cells # 0.0 K/mm3 06/05/16 14:00 WBC Morphology Not Reportable 06/05/16 14:00 Hypersegmented Neuts Not Reportable 06/05/16 14:00 Hyposegmented Neuts Not Reportable 06/05/16 14:00 Hypogranular Neuts Not Reportable 06/05/16 14:00 Smudge Cells Not Reportable 06/05/16 14:00 Toxic Granulation Not Reportable 06/05/16 14:00 Toxic Vacuolation Not Reportable 06/05/16 14:00 Dohle Bodies Not Reportable 06/05/16 14:00 Pelger-Huet Anomaly Not Reportable 06/05/16 14:00 Bari Rods Not Reportable 06/05/16 14:00 Platelet Estimate Appears decreased 06/05/16 14:00 Clumped Platelets Not Reportable 06/05/16 14:00 Plt Clumps, EDTA Not Reportable 06/05/16 14:00 Large Platelets Not Reportable 06/05/16 14:00 Giant Platelets Not Reportable 06/05/16 14:00 Platelet Satelliting Not Reportable 06/05/16 14:00 Plt Morphology Comment Not Reportable 06/05/16 14:00 RBC Morphology Not Reportable 06/05/16 14:00 Dimorphic RBCs Not Reportable 06/05/16 14:00 Polychromasia Few 06/05/16 14:00 Hypochromasia Few 06/05/16 14:00 Poikilocytosis Rare 06/05/16 14:00 Anisocytosis 1+ 06/05/16 14:00 Microcytosis Not Reportable 06/05/16 14:00 Macrocytosis Not Reportable 06/05/16 14:00 Spherocytes Not Reportable 06/05/16 14:00 Pappenheimer Bodies Not Reportable 06/05/16 14:00 Sickle Cells Not Reportable 06/05/16 14:00 Target Cells Not Reportable 06/05/16 14:00 Tear Drop Cells Not Reportable 06/05/16 14:00 Ovalocytes Rare 06/05/16 14:00 Helmet Cells Not Reportable 06/05/16 14:00 [place] Bodies Not Reportable 06/05/16 14:00 Philipp Rings Not Reportable 06/05/16 14:00 Benny Cells Not Reportable 06/05/16 14:00 Bite Cells Not Reportable 06/05/16 14:00 Crenated Cell Not Reportable 06/05/16 14:00 Elliptocytes Not Reportable 06/05/16 14:00 Acanthocytes (Spur) Not Reportable 06/05/16 14:00 Rouleaux Not Reportable 06/05/16 14:00 Hemoglobin C Crystals Not Reportable 06/05/16 14:00 Schistocytes Not Reportable 06/05/16 14:00 Malaria parasites Not Reportable 06/05/16 14:00 Percent Retic 2.11 % (0.78-2.58) 06/03/16 19:30 Andrea Bodies Not Reportable 06/05/16 14:00 Hem Pathologist Commnt No 06/05/16 14:00 PT 15.5 Sec. (12.2-14.9) H 06/03/16 19:30 INR 1.24 (0.87-1.13) H 06/03/16 19:30 APTT 25.5 Sec. (24.2-36.6) 06/03/16 19:30 Fibrinogen 157 mg/dl (211-480) L 06/04/16 05:25 D-Dimer 239.48 ng/mlDDU (0-234) H 05/23/16 14:16 Heparin Anti-Xa Level 1.35 U.I./ml (0.3-0.7) H 05/26/16 15:47 POC ABG pH 7.310 (7.35-7.45) L 06/05/16 08:03 POC ABG pCO2 44.1 (35-45) 06/05/16 08:03 POC ABG pO2 87 (80-105) 06/05/16 08:03 POC ABG HCO3 22.2 06/05/16 08:03 POC ABG Total CO2 24 06/05/16 08:03 POC ABG O2 Sat 96 06/05/16 08:03 POC ABG Base Excess -4 06/05/16 08:03 VBG pH 7.403 (7.320-7.420) 05/22/16 14:24 FiO2 35 % 06/05/16 08:03 Sodium 141 mmol/L (137-145) 06/05/16 05:00 Potassium 5.2 mmol/L (3.6-5.0) H 06/05/16 05:00 Chloride 100.8 mmol/L (98-107) 06/05/16 05:00 Carbon Dioxide 22 mmol/L (22-30) 06/05/16 05:00 Anion Gap 23 mmol/L 06/05/16 05:00 BUN 69 mg/dL (9-20) H 06/05/16 05:00 Creatinine 3.4 mg/dL (0.8-1.5) H 06/05/16 05:00 Estimated GFR 17 ml/min 06/05/16 05:00 BUN/Creatinine Ratio 20.29 % 06/05/16 05:00 Glucose 192 mg/dL (75-100) H 06/05/16 05:00 POC Glucose 226 (70-105) H 06/05/16 05:53 Hemoglobin A1c 6.4 % (4-6) H 05/23/16 06:02 Lactic Acid 1.2 mmol/L (0.7-2.0) 05/31/16 13:45 Calcium 6.4 mg/dL (8.4-10.2) L D 06/05/16 05:00 Phosphorus 6.6 mg/dL (2.5-4.5) H 05/30/16 05:30 Magnesium 1.7 mg/dL (1.7-2.3) 06/02/16 20:00 Iron 31 ug/dL (49-181) L 06/03/16 19:30 TIBC 151 mcg/dL (250-450) L 06/03/16 19:30 Ferritin 285.7 ng/mL (13.0-400.0) 06/03/16 19:30 Total Bilirubin 0.5 mg/dL (0.1-1.2) 06/05/16 05:00 Direct Bilirubin 0.2 mg/dL (0-0.2) 05/27/16 18:25 Indirect Bilirubin 0.2 mg/dL 05/27/16 18:25 AST 57 units/L (5-40) H 06/05/16 05:00 ALT 189 units/L (7-56) H 06/05/16 05:00 Alkaline Phosphatase 77 units/L (35-129) 06/05/16 05:00 Total Creatine Kinase 1486 units/L (55-170) H 05/31/16 05:50 CK-MB (CK-2) 2.1 ng/mL (0.0-4.0) 05/22/16 14:24 CK-MB (CK-2) Rel Index 3.9 (0-4) 05/22/16 14:24 Troponin T 0.023 ng/mL (0.00-0.029) 05/22/16 14:24 C-Reactive Protein 4.10 mg/dL (0.00-1.30) H 05/31/16 13:45 NT-Pro-B Natriuret Pep 316.0 pg/mL (0-900) 05/22/16 14:24 Total Protein 4.2 g/dL (6.3-8.2) L 06/05/16 05:00 Albumin 2.6 g/dL (3.9-5) L 06/05/16 05:00 Albumin/Globulin Ratio 1.6 % 06/05/16 05:00 Vitamin B12 1851 pg/mL (211-911) H 06/03/16 19:30 Folate > 20.00 ng/mL (7.3-26.0) 06/03/16 19:30 Urine Color Yellow (Yellow) 06/01/16 17:15 Urine Turbidity Cloudy (Clear) 06/01/16 17:15 Urine pH 5.0 (5.0-7.0) 06/01/16 17:15 Ur Specific [place] 1.016 (1.003-1.030) 06/01/16 17:15 Urine Protein 30 mg/dl mg/dL (Negative) 06/01/16 17:15 Urine Glucose (UA) Neg mg/dL (Negative) 06/01/16 17:15 Urine Ketones Neg mg/dL (Negative) 06/01/16 17:15 Urine Blood Lg (Negative) 06/01/16 17:15 Urine Nitrite Neg (Negative) 06/01/16 17:15 Urine Bilirubin Neg (Negative) 06/01/16 17:15 Urine Urobilinogen < 2.0 mg/dL (<2.0) 06/01/16 17:15 Ur Leukocyte Esterase Mod (Negative) 06/01/16 17:15 Urine WBC (Auto) 63.0 /HPF (0.0-6.0) H 06/01/16 17:15 Urine RBC (Auto) 83.0 /HPF (0.0-6.0) 06/01/16 17:15 U Epithel Cells (Auto) 1.0 /HPF (0-13.0) 06/01/16 17:15 Urine Bacteria (Auto) 3+ /HPF (Negative) 06/01/16 17:15 Hyaline Casts 4 /LPF 06/01/16 17:15 Granular Casts 30 /LPF 06/01/16 17:15 Urine Mucus Few /HPF 06/01/16 17:15 Urine Yeast (Budding) 3+ /HPF 06/01/16 17:15 Urine Creatinine 69.9 mg/dL (0.1-20.0) H 05/27/16 18:00 Urine Sodium 46 mEq/L 05/27/16 18:00 Random Vancomycin 14.8 ug/mL (0-40.0) 06/05/16 05:00 Hepatitis A IgM Ab -1 (NonReactive) 05/30/16 12:00 Hep Bs Antigen Non-reactive (Negative) 05/30/16 12:00 Hep B Core IgM Ab Non-reactive (NonReactive) 05/30/16 12:00 Hepatitis C Antibody Non-reactive (NonReactive) 05/30/16 12:00 Blood Type O POSITIVE 06/03/16 13:40 Antibody Screen Negative 06/03/16 13:40 Crossmatch See Detail 06/03/16 13:40
[2016-06-05 16:58] LABS: Heparin-Induced Platelet Antib Negative (Negative); Unfractionated Heparin Negative (Negative)
[2016-06-05] MEDS: SINGULAIR PO SCH (19:07)
[2016-06-05] MEDS: CALCIUM CARBONATE FEEDTUBE SCH (21:49)
[2016-06-05] MEDS: ZOCOR PO SCH (21:50)
[2016-06-05] MEDS: LEVOPHED 8 MG in NACL 0.9% 250ML 242 ML IV SCH (22:15)
[2016-06-05 23:24] LABS: Hematocrit 25.9 % (35.5-45.6); Hemoglobin 8.4 gm/dl (11.8-15.2)
[2016-06-06] MEDS: DUONEB 0.5 MG-3 MG/3 ML SOLN IH SCH ×4 (01:37→19:41)
[2016-06-06 04:46] LABS: BUN/Creatinine Ratio 20.46; Calcium 6.6 mg/dL (8.4-10.2); Magnesium 1.9 mg/dL (1.7-2.3); Phosphorous 8.3 mg/dL (2.5-4.5); Potassium 5.3 mmol/L (3.6-5.0)
[2016-06-06 05:30] LABS: ISTAT Base Excess -4; ISTAT HCO3 21.3; ISTAT PCO2 37.2 (35-45); ISTAT PH 7.365 (7.35-7.45); ISTAT PO2 88 (80-105); ISTAT SO2 96; ISTAT TCO2 22
[2016-06-06] MEDS: NOVOLOG SUB-Q SCH ×2 (05:54→11:53)
[2016-06-06] MEDS: REGLAN IV SCH (05:59)
[2016-06-06] MEDS: FLAGYL 500 MG/100 ML 100 ML IV SCH (06:00)
[2016-06-06] MEDS: ZOSYN/NS 2.25 GM/50ML 50 ML IV SCH (06:00)
[2016-06-06] MEDS: fentaNYL DRIP Premix 100 ML IV SCH (07:28)
--- NOTE | 2016-06-06 08:14 | Progress Note ---
Assessment and Plan - Patient Problems (1) RUBIA (acute kidney injury) Current Visit: Yes Status: Acute Plan to address problem: Acute Kidney Injury superimposed on CKD stage 3 in the setting of hypotension and anemia. Patient is back on levophed. Patient was started on hemodialysis due to worsening renal function, oliguria and Hyperkalemia. Plan to do hemodialysis today, orders written. Urine output fluctuates. Monitor for AWS CONSULTANT needs. Renal prognosis guarded. On phos binders. (2) Hyperkalemia Current Visit: Yes Status: Acute Plan to address problem: Hemodialysis today. (3) Shock Current Visit: Yes Status: Acute Plan to address problem: On Levophed. (4) Lactic acidosis Current Visit: Yes Status: Acute (5) Acute on chronic respiratory failure with hypoxemia Current Visit: Yes Status: Acute Plan to address problem: On vent. (6) Anemia Current Visit: Yes Status: Acute Qualifiers: Other causes of anemia: other cause, not classified Plan to address problem: S/p transfusion. (7) Shock liver Current Visit: Yes Status: Acute Subjective Date of service: 06/06/16 Principal diagnosis: Acute on Chronic Hypoxemic Respiratory Failure Interval history: Patient remain on the vent. Objective - Vital Signs Vital signs: Vital Signs - 12hr 06/05/16 06/05/16 06/05/16 20:15 20:30 20:45 Temperature Pulse Rate 127 H 121 H 126 H Pulse Rate [ Anterior Bilateral Throughout] Pulse Rate [ From Monitor] Respiratory 22 25 H 19 Rate Respiratory Rate [Anterior Bilateral Throughout] Blood Pressure 89/42 100/37 74/48 O2 Sat by Pulse 99 99 99 Oximetry 06/05/16 06/05/16 06/05/16 21:00 21:06 21:15 Temperature Pulse Rate 121 H 123 H 115 H Pulse Rate [ Anterior Bilateral Throughout] Pulse Rate [ From Monitor] Respiratory 25 H 25 H 25 H Rate Respiratory Rate [Anterior Bilateral Throughout] Blood Pressure 84/45 84/45 69/46 O2 Sat by Pulse 99 99 98 Oximetry 06/05/16 06/05/16 06/05/16 21:30 21:45 22:00 Temperature Pulse Rate 119 H 117 H 115 H Pulse Rate [ Anterior Bilateral Throughout] Pulse Rate [ From Monitor] Respiratory 25 H 25 H 25 H Rate Respiratory Rate [Anterior Bilateral Throughout] Blood Pressure 88/48 84/36 74/36 O2 Sat by Pulse 98 99 98 Oximetry 06/05/16 06/05/16 06/05/16 22:15 22:30 22:45 Temperature Pulse Rate 121 H 119 H 115 H Pulse Rate [ Anterior Bilateral Throughout] Pulse Rate [ From Monitor] Respiratory 25 H 19 25 H Rate Respiratory Rate [Anterior Bilateral Throughout] Blood Pressure 91/43 122/58 106/52 O2 Sat by Pulse 99 99 99 Oximetry 06/05/16 06/05/16 06/05/16 23:00 23:15 23:29 Temperature Pulse Rate 118 H 123 H 117 H Pulse Rate [ Anterior Bilateral Throughout] Pulse Rate [ From Monitor] Respiratory 25 H 24 25 H Rate Respiratory Rate [Anterior Bilateral Throughout] Blood Pressure 113/55 107/65 107/65 O2 Sat by Pulse 99 99 99 Oximetry 06/05/16 06/05/16 06/05/16 23:30 23:33 23:45 Temperature 101.1 F H Pulse Rate 121 H 115 H 116 H Pulse Rate [ Anterior Bilateral Throughout] Pulse Rate [ 121 H From Monitor] Respiratory 25 H 25 H 25 H Rate Respiratory Rate [Anterior Bilateral Throughout] Blood Pressure 121/47 121/47 102/60 O2 Sat by Pulse 99 99 99 Oximetry 06/06/16 06/06/16 06/06/16 00:00 00:03 00:07 Temperature Pulse Rate 121 H 121 H 123 H Pulse Rate [ Anterior Bilateral Throughout] Pulse Rate [ From Monitor] Respiratory 25 H 25 H 25 H Rate Respiratory Rate [Anterior Bilateral Throughout] Blood Pressure 121/53 121/53 121/53 O2 Sat by Pulse 99 99 100 Oximetry 06/06/16 06/06/16 06/06/16 00:13 00:16 00:22 Temperature Pulse Rate 123 H 119 H 123 H Pulse Rate [ Anterior Bilateral Throughout] Pulse Rate [ From Monitor] Respiratory 25 H 25 H 25 H Rate Respiratory Rate [Anterior Bilateral Throughout] Blood Pressure 121/53 121/53 O2 Sat by Pulse 98 98 99 Oximetry 06/06/16 06/06/16 06/06/16 00:23 00:25 00:30 Temperature Pulse Rate 119 H 116 H 120 H Pulse Rate [ Anterior Bilateral Throughout] Pulse Rate [ From Monitor] Respiratory 25 H 25 H Rate Respiratory Rate [Anterior Bilateral Throughout] Blood Pressure 101/57 120/57 O2 Sat by Pulse 99 98 98 Oximetry 06/06/16 06/06/16 06/06/16 00:45 01:00 01:15 Temperature Pulse Rate 118 H 115 H 116 H Pulse Rate [ Anterior Bilateral Throughout] Pulse Rate [ From Monitor] Respiratory 25 H 25 H 25 H Rate Respiratory Rate [Anterior Bilateral Throughout] Blood Pressure 101/57 93/51 101/57 O2 Sat by Pulse 99 98 98 Oximetry 06/06/16 06/06/16 06/06/16 01:30 01:37 01:45 Temperature Pulse Rate 113 H 113 H Pulse Rate [ 120 H Anterior Bilateral Throughout] Pulse Rate [ From Monitor] Respiratory 25 H 25 H Rate Respiratory 24 Rate [Anterior Bilateral Throughout] Blood Pressure 99/48 113/38 O2 Sat by Pulse 99 100 Oximetry 06/06/16 06/06/16 06/06/16 01:46 02:01 02:05 Temperature Pulse Rate 111 H 113 H Pulse Rate [ 118 H Anterior Bilateral Throughout] Pulse Rate [ From Monitor] Respiratory 25 H 18 Rate Respiratory 23 Rate [Anterior Bilateral Throughout] Blood Pressure 86/54 86/54 O2 Sat by Pulse 98 99 Oximetry 06/06/16 06/06/16 06/06/16 02:07 02:15 02:31 Temperature Pulse Rate 112 H 115 H 110 H Pulse Rate [ Anterior Bilateral Throughout] Pulse Rate [ From Monitor] Respiratory 25 H 24 25 H Rate Respiratory Rate [Anterior Bilateral Throughout] Blood Pressure 86/54 93/60 90/51 O2 Sat by Pulse 99 98 99 Oximetry 06/06/16 06/06/16 06/06/16 02:45 03:00 03:09 Temperature Pulse Rate 114 H 111 H 110 H Pulse Rate [ Anterior Bilateral Throughout] Pulse Rate [ From Monitor] Respiratory 25 H 24 25 H Rate Respiratory Rate [Anterior Bilateral Throughout] Blood Pressure 90/51 99/53 99/53 O2 Sat by Pulse 99 98 99 Oximetry 06/06/16 06/06/16 06/06/16 03:15 03:30 03:35 Temperature Pulse Rate 121 H 119 H 122 H Pulse Rate [ Anterior Bilateral Throughout] Pulse Rate [ From Monitor] Respiratory 16 18 Rate Respiratory Rate [Anterior Bilateral Throughout] Blood Pressure 99/53 118/65 118/65 O2 Sat by Pulse 98 99 99 Oximetry 06/06/16 06/06/16 06/06/16 03:47 04:00 04:01 Temperature 100.0 F H Pulse Rate 124 H 115 H Pulse Rate [ Anterior Bilateral Throughout] Pulse Rate [ From Monitor] Respiratory 26 H 25 H Rate Respiratory Rate [Anterior Bilateral Throughout] Blood Pressure 112/56 114/34 O2 Sat by Pulse 99 98 Oximetry 06/06/16 06/06/16 06/06/16 04:15 04:30 04:45 Temperature Pulse Rate 119 H 134 H 121 H Pulse Rate [ Anterior Bilateral Throughout] Pulse Rate [ From Monitor] Respiratory 25 H 22 25 H Rate Respiratory Rate [Anterior Bilateral Throughout] Blood Pressure 114/34 138/68 138/68 O2 Sat by Pulse 99 99 98 Oximetry 06/06/16 06/06/16 06/06/16 05:00 05:03 05:15 Temperature Pulse Rate 126 H 130 H 123 H Pulse Rate [ Anterior Bilateral Throughout] Pulse Rate [ From Monitor] Respiratory 21 26 H 22 Rate Respiratory Rate [Anterior Bilateral Throughout] Blood Pressure 123/68 123/68 124/59 O2 Sat by Pulse 98 98 99 Oximetry 06/06/16 06/06/16 06/06/16 05:31 05:45 06:00 Temperature Pulse Rate 124 H 118 H 129 H Pulse Rate [ Anterior Bilateral Throughout] Pulse Rate [ From Monitor] Respiratory 25 H 25 H 18 Rate Respiratory Rate [Anterior Bilateral Throughout] Blood Pressure 129/60 129/60 138/62 O2 Sat by Pulse 99 98 99 Oximetry 06/06/16 06/06/16 06/06/16 06:15 06:17 06:20 Temperature Pulse Rate 126 H 122 H Pulse Rate [ Anterior Bilateral Throughout] Pulse Rate [ From Monitor] Respiratory 15 25 H 22 Rate Respiratory Rate [Anterior Bilateral Throughout] Blood Pressure 138/62 136/57 O2 Sat by Pulse 98 98 98 Oximetry 06/06/16 06/06/16 06/06/16 06:23 06:30 06:45 Temperature Pulse Rate 121 H 121 H 125 H Pulse Rate [ Anterior Bilateral Throughout] Pulse Rate [ From Monitor] Respiratory 25 H 21 25 H Rate Respiratory Rate [Anterior Bilateral Throughout] Blood Pressure 136/57 112/44 116/75 O2 Sat by Pulse 98 98 98 Oximetry 06/06/16 06/06/16 06/06/16 07:01 07:13 07:15 Temperature 101.2 F H Pulse Rate 126 H 127 H Pulse Rate [ Anterior Bilateral Throughout] Pulse Rate [ From Monitor] Respiratory 25 H 25 H Rate Respiratory Rate [Anterior Bilateral Throughout] Blood Pressure 130/65 130/65 O2 Sat by Pulse 98 98 Oximetry 06/06/16 06/06/16 06/06/16 07:31 07:45 08:00 Temperature Pulse Rate 127 H 117 H 131 H Pulse Rate [ Anterior Bilateral Throughout] Pulse Rate [ From Monitor] Respiratory 20 25 H 25 H Rate Respiratory Rate [Anterior Bilateral Throughout] Blood Pressure 143/57 143/57 111/53 O2 Sat by Pulse 98 98 98 Oximetry - General Appearance General appearance: well-developed, obese, sedated on ventilator (FiO2 35%), intubated, other (right groin hemodialysis catheter) EENT: PERRL, other Neck: supple Respiratory: Present: Other (coarse breath sounds) Cardiology: regular, S1S2, no murmurs Gastrointestinal: normoactive bowel sounds Integumentary: no rash Neurologic: other (sedated) Musculoskeletal: other (1+ edema of all 4 extremities) Psychiatric: other (sedated) - Lab 06/05/16 22:30 06/06/16 03:48 Most recent lab results Calcium 6.6 mg/dL (8.4-10.2) L 06/06/16 03:48 Phosphorus 8.3 mg/dL (2.5-4.5) H 06/06/16 03:48 Magnesium 1.9 mg/dL (1.7-2.3) 06/06/16 03:48 Urine Creatinine 69.9 mg/dL (0.1-20.0) H 05/27/16 18:00 Urine Sodium 46 mEq/L 05/27/16 18:00
[2016-06-06] MEDS: PULMICORT IH SCH ×2 (09:01→19:41)
[2016-06-06] MEDS ORDERED: NACL 0.9% 1000 ML 100 ML IV PRN (09:29)
[2016-06-06] MEDS: LEVEMIR SUB-Q SCH (11:49)
[2016-06-06] MEDS: CALCIUM CARBONATE FEEDTUBE SCH (11:54)
--- NOTE | 2016-06-06 12:02 | Progress Note ---
Assessment and Plan Assessment and plan: Echocardiogram from May 26 shows diastolic dysfunction, systolic dysfunction is grossly normal Patient is a 80-year-old man with a history of type 2 diabetes mellitus, hypertension, dyslipidemia and chronic respiratory failure on 3 L oxygen at home due to COPD who presented with shortness breath and a cough on 05/22/2016. He was admitted for COPD exacerbation, He was placed on BiPAP. And then intubated on May 26, 2016. So, he was treated with iv heparin for suspected thromboembolism while awaiting VQ scan versus CTA chest. During his hospital course hematocrit started dropping, requiring blood transfusion and consultation with gastroenterology, heparin was dc. Also, Renal function is deteriorating questionable needing dialysis Acute on chronic hypoxic respiratory failure/ COPD exacerbation Continue abx, continue steroids and nebulizer treatments, continue daily chest x -ray, will need VQ scan vs CTA (depening on renal function )when stable enough to do the test, will need IVC filter is positive Acute blood loss anemia due to retoperitoneal hematoma, transfuse as needed, avoid blood thinners Acute kidney injury- Status post Vas-Cath placement, continue renal replacement therapy Diabetes mellitus uncontrolled Continuing insulin SBO/Ileus continue NG Tube to suction, surgery input appreciated Copy Holder consult for TPN Sepsis continue current abx, continue pressors, ID input appreciated, fup cultures Prognosis is guarded, discussed with his family, Critical care time spent: 35 minutes History Interval history: continues to have hypotension on and off needing pressors, signs of multi-organ failure, Hospitalist Physical - Physical exam Narrative exam: General: Moderate respiratory distress, taking deep breaths with sighs HEENT: MMM, EOMI cardiac: S1-S2 heard lungs: Bibasilar crackles, ventilated breath sounds abdomen: Distended, bowel sounds positive extremities: 2+ edema in all extremities Skin: no rash or lesion Neuro: Intubated sedated - Constitutional Vitals: Temp Pulse Resp BP Pulse Ox 101.2 F H 114 H 23 104/46 99 06/06/16 09:45 06/06/16 11:30 06/06/16 10:01 06/06/16 11:30 06/06/16 10:01 General appearance: Present: other (intubated) Results - Labs CBC & Chem 7: 06/06/16 12:10 06/06/16 12:10 Labs: Laboratory Last Values WBC 53.4 K/mm3 (4.5-11.0) H* 06/05/16 14:00 RBC 3.24 M/mm3 (3.65-5.03) L 06/05/16 14:00 Hgb 8.4 gm/dl (11.8-15.2) L 06/05/16 22:30 Hct 25.9 % (35.5-45.6) L 06/05/16 22:30 MCV 90 fl (84-94) 06/05/16 14:00 MCH 29 pg (28-32) 06/05/16 14:00 MCHC 32 % (32-34) 06/05/16 14:00 RDW 15.4 % (13.2-15.2) H 06/05/16 14:00 Plt Count 76 K/mm3 (140-440) L 06/05/16 14:00 Lymph % (Auto) 13.0 % (13.4-35.0) L 05/22/16 14:25 [place] % (Auto) 13.1 % (0.0-7.3) H 05/22/16 14:25 Eos % (Auto) 1.1 % (0.0-4.3) 05/22/16 14:25 Baso % (Auto) 0.6 % (0.0-1.8) 05/22/16 14:25 Lymph # 0.8 K/mm3 (1.2-5.4) L 05/22/16 14:25 Murray # 0.8 K/mm3 (0.0-0.8) 05/22/16 14:25 Eos # 0.1 K/mm3 (0.0-0.4) 05/22/16 14:25 Baso # 0.0 K/mm3 (0.0-0.1) 05/22/16 14:25 Add Manual Diff Complete 06/05/16 14:00 Total Counted 200 06/05/16 14:00 Seg Neutrophils % Elevator Erector Helper 06/05/16 14:00 Seg Neuts % (Manual) 100.0 % (40.0-70.0) H 06/05/16 14:00 Band Neutrophils % 0 % 06/05/16 14:00 Lymphocytes % (Manual) 0 % (13.4-35.0) L 06/05/16 14:00 Reactive Lymphs % (Man) 0 % 06/05/16 14:00 Monocytes % (Manual) 0 % (0.0-7.3) 06/05/16 14:00 Eosinophils % (Manual) 0 % (0.0-4.3) 06/05/16 14:00 Basophils % (Manual) 0 % (0.0-1.8) 06/05/16 14:00 Metamyelocytes % 0 % 06/05/16 14:00 Myelocytes % 0 % 06/05/16 14:00 Promyelocytes % 0 % 06/05/16 14:00 Blast Cells % 0 % 06/05/16 14:00 Nucleated RBC % Not Reportable 06/05/16 14:00 Seg Neutrophils # 4.4 K/mm3 (1.8-7.7) 05/22/16 14:25 Seg Neutrophils # Man 53.4 K/mm3 (1.8-7.7) H 06/05/16 14:00 Band Neutrophils # 0.0 K/mm3 06/05/16 14:00 Lymphocytes # (Manual) 0.0 K/mm3 (1.2-5.4) L 06/05/16 14:00 Abs React Lymphs (Man) 0.0 K/mm3 06/05/16 14:00 Monocytes # (Manual) 0.0 K/mm3 (0.0-0.8) 06/05/16 14:00 Eosinophils # (Manual) 0.0 K/mm3 (0.0-0.4) 06/05/16 14:00 Basophils # (Manual) 0.0 K/mm3 (0.0-0.1) 06/05/16 14:00 Metamyelocytes # 0.0 K/mm3 06/05/16 14:00 Myelocytes # 0.0 K/mm3 06/05/16 14:00 Promyelocytes # 0.0 K/mm3 06/05/16 14:00 Blast Cells # 0.0 K/mm3 06/05/16 14:00 WBC Morphology Not Reportable 06/05/16 14:00 Hypersegmented Neuts Not Reportable 06/05/16 14:00 Hyposegmented Neuts Not Reportable 06/05/16 14:00 Hypogranular Neuts Not Reportable 06/05/16 14:00 Smudge Cells Not Reportable 06/05/16 14:00 Toxic Granulation Not Reportable 06/05/16 14:00 Toxic Vacuolation Not Reportable 06/05/16 14:00 Dohle Bodies Not Reportable 06/05/16 14:00 Pelger-Huet Anomaly Not Reportable 06/05/16 14:00 Bari Rods Not Reportable 06/05/16 14:00 Platelet Estimate Appears decreased 06/05/16 14:00 Clumped Platelets Not Reportable 06/05/16 14:00 Plt Clumps, EDTA Not Reportable 06/05/16 14:00 Large Platelets Not Reportable 06/05/16 14:00 Giant Platelets Not Reportable 06/05/16 14:00 Platelet Satelliting Not Reportable 06/05/16 14:00 Plt Morphology Comment Not Reportable 06/05/16 14:00 RBC Morphology Not Reportable 06/05/16 14:00 Dimorphic RBCs Not Reportable 06/05/16 14:00 Polychromasia Few 06/05/16 14:00 Hypochromasia Few 06/05/16 14:00 Poikilocytosis Rare 06/05/16 14:00 Anisocytosis 1+ 06/05/16 14:00 Microcytosis Not Reportable 06/05/16 14:00 Macrocytosis Not Reportable 06/05/16 14:00 Spherocytes Not Reportable 06/05/16 14:00 Pappenheimer Bodies Not Reportable 06/05/16 14:00 Sickle Cells Not Reportable 06/05/16 14:00 Target Cells Not Reportable 06/05/16 14:00 Tear Drop Cells Not Reportable 06/05/16 14:00 Ovalocytes Rare 06/05/16 14:00 Helmet Cells Not Reportable 06/05/16 14:00 [place] Bodies Not Reportable 06/05/16 14:00 [place] Rings Not Reportable 06/05/16 14:00 [place] Cells Not Reportable 06/05/16 14:00 Bite Cells Not Reportable 06/05/16 14:00 Crenated Cell Not Reportable 06/05/16 14:00 Elliptocytes Not Reportable 06/05/16 14:00 Acanthocytes (Spur) Not Reportable 06/05/16 14:00 Rouleaux Not Reportable 06/05/16 14:00 Hemoglobin C Crystals Not Reportable 06/05/16 14:00 Schistocytes Not Reportable 06/05/16 14:00 Malaria parasites Not Reportable 06/05/16 14:00 Percent Retic 2.11 % (0.78-2.58) 06/03/16 19:30 Andrea Bodies Not Reportable 06/05/16 14:00 Hem Pathologist Commnt No 06/05/16 14:00 PT 15.5 Sec. (12.2-14.9) H 06/03/16 19:30 INR 1.24 (0.87-1.13) H 06/03/16 19:30 APTT 25.5 Sec. (24.2-36.6) 06/03/16 19:30 Fibrinogen 157 mg/dl (211-480) L 06/04/16 05:25 D-Dimer 239.48 ng/mlDDU (0-234) H 05/23/16 14:16 Heparin Anti-Xa Level 1.35 U.I./ml (0.3-0.7) H 05/26/16 15:47 Heparin Anti-Xa, Unfract Negative (Negative) 06/02/16 13:30 POC ABG pH 7.365 (7.35-7.45) 06/06/16 04:57 POC ABG pCO2 37.2 (35-45) 06/06/16 04:57 POC ABG pO2 88 (80-105) 06/06/16 04:57 POC ABG HCO3 21.3 06/06/16 04:57 POC ABG Total CO2 22 06/06/16 04:57 POC ABG O2 Sat 96 06/06/16 04:57 POC ABG Base Excess -4 06/06/16 04:57 VBG pH 7.403 (7.320-7.420) 05/22/16 14:24 FiO2 35 % 06/06/16 04:57 Sodium 143 mmol/L (137-145) 06/06/16 03:48 Potassium 5.3 mmol/L (3.6-5.0) H 06/06/16 03:48 Chloride 102.0 mmol/L (98-107) 06/06/16 03:48 Carbon Dioxide 21 mmol/L (22-30) L 06/06/16 03:48 Anion Gap 25 mmol/L 06/06/16 03:48 BUN 88 mg/dL (9-20) H 06/06/16 03:48 Creatinine 4.3 mg/dL (0.8-1.5) H 06/06/16 03:48 Estimated GFR 13 ml/min 06/06/16 03:48 BUN/Creatinine Ratio 20.46 % 06/06/16 03:48 Glucose 225 mg/dL (75-100) H 06/06/16 03:48 POC Glucose 248 (70-105) H 06/06/16 05:28 Hemoglobin A1c 6.4 % (4-6) H 05/23/16 06:02 Lactic Acid 1.2 mmol/L (0.7-2.0) 05/31/16 13:45 Calcium 6.6 mg/dL (8.4-10.2) L 06/06/16 03:48 Phosphorus 8.3 mg/dL (2.5-4.5) H 06/06/16 03:48 Magnesium 1.9 mg/dL (1.7-2.3) 06/06/16 03:48 Iron 31 ug/dL (49-181) L 06/03/16 19:30 TIBC 151 mcg/dL (250-450) L 06/03/16 19:30 Ferritin 285.7 ng/mL (13.0-400.0) 06/03/16 19:30 Total Bilirubin 0.5 mg/dL (0.1-1.2) 06/05/16 05:00 Direct Bilirubin 0.2 mg/dL (0-0.2) 05/27/16 18:25 Indirect Bilirubin 0.2 mg/dL 05/27/16 18:25 AST 57 units/L (5-40) H 06/05/16 05:00 ALT 189 units/L (7-56) H 06/05/16 05:00 Alkaline Phosphatase 77 units/L (35-129) 06/05/16 05:00 Total Creatine Kinase 1486 units/L (55-170) H 05/31/16 05:50 CK-MB (CK-2) 2.1 ng/mL (0.0-4.0) 05/22/16 14:24 CK-MB (CK-2) Rel Index 3.9 (0-4) 05/22/16 14:24 Troponin T 0.023 ng/mL (0.00-0.029) 05/22/16 14:24 C-Reactive Protein 4.10 mg/dL (0.00-1.30) H 05/31/16 13:45 NT-Pro-B Natriuret Pep 316.0 pg/mL (0-900) 05/22/16 14:24 Total Protein 4.2 g/dL (6.3-8.2) L 06/05/16 05:00 Albumin 2.6 g/dL (3.9-5) L 06/05/16 05:00 Albumin/Globulin Ratio 1.6 % 06/05/16 05:00 Vitamin B12 1851 pg/mL (211-911) H 06/03/16 19:30 Folate > 20.00 ng/mL (7.3-26.0) 06/03/16 19:30 Urine Color Yellow (Yellow) 06/01/16 17:15 Urine Turbidity Cloudy (Clear) 06/01/16 17:15 Urine pH 5.0 (5.0-7.0) 06/01/16 17:15 Ur Specific [place] 1.016 (1.003-1.030) 06/01/16 17:15 Urine Protein 30 mg/dl mg/dL (Negative) 06/01/16 17:15 Urine Glucose (UA) Neg mg/dL (Negative) 06/01/16 17:15 Urine Ketones Neg mg/dL (Negative) 06/01/16 17:15 Urine Blood Lg (Negative) 06/01/16 17:15 Urine Nitrite Neg (Negative) 06/01/16 17:15 Urine Bilirubin Neg (Negative) 06/01/16 17:15 Urine Urobilinogen < 2.0 mg/dL (<2.0) 06/01/16 17:15 Ur Leukocyte Esterase Mod (Negative) 06/01/16 17:15 Urine WBC (Auto) 63.0 /HPF (0.0-6.0) H 06/01/16 17:15 Urine RBC (Auto) 83.0 /HPF (0.0-6.0) 06/01/16 17:15 U Epithel Cells (Auto) 1.0 /HPF (0-13.0) 06/01/16 17:15 Urine Bacteria (Auto) 3+ /HPF (Negative) 06/01/16 17:15 Hyaline Casts 4 /LPF 06/01/16 17:15 Granular Casts 30 /LPF 06/01/16 17:15 Urine Mucus Few /HPF 06/01/16 17:15 Urine Yeast (Budding) 3+ /HPF 06/01/16 17:15 Urine Creatinine 69.9 mg/dL (0.1-20.0) H 05/27/16 18:00 Urine Sodium 46 mEq/L 05/27/16 18:00 Random Vancomycin 14.8 ug/mL (0-40.0) 06/05/16 05:00 Heparin-induced Plt Ab Negative (Negative) 06/02/16 13:30 UF Heparin High Dose 0 % Release (()) 06/02/16 13:30 [place] UFH Low Dose 0.1 0 % Release (()) 06/02/16 13:30 [place] UFH Low Dose 0.5 0 % Release (()) 06/02/16 13:30 Hepatitis A IgM Ab -1 (NonReactive) 05/30/16 12:00 Hep Bs Antigen Non-reactive (Negative) 05/30/16 12:00 Hep B Core IgM Ab Non-reactive (NonReactive) 05/30/16 12:00 Hepatitis C Antibody Non-reactive (NonReactive) 05/30/16 12:00 Blood Type O POSITIVE 06/03/16 13:40 Antibody Screen Negative 06/03/16 13:40 Crossmatch See Detail 06/03/16 13:40
[2016-06-06 12:23] LABS: Hematocrit 31.6 % (35.5-45.6); Hemoglobin 10.4 gm/dl (11.8-15.2); Mean Corpuscular HGB Conc 33 % (32-34); Mean Corpuscular Hemoglobin 30 pg (28-32); Mean Corpuscular Volume 91 fl (84-94); Red Blood Count 3.47 M/mm3 (3.65-5.03); Red Cell Distribution Width 15.2 % (13.2-15.2)
[2016-06-06 12:28] LABS: Platelet Count 30 K/mm3 (140-440); White Blood Count 46.1 K/mm3 (4.5-11.0)
[2016-06-06 12:34] LABS: INR 1.68 (0.87-1.13)
[2016-06-06 12:35] LABS: Partial Thromboplastin Time 48.5 Sec. (24.2-36.6)
[2016-06-06 12:48] LABS: Creatine Kinase MB 5.8 ng/mL (0.0-4.0)
[2016-06-06 12:50] LABS: Albumin 2.8 g/dL (3.9-5); Albumin/Globulin Ratio 1.8 %; BUN/Creatinine Ratio 16.29; Bilirubin,Total 0.9 mg/dL (0.1-1.2); Calcium 6.5 mg/dL (8.4-10.2); Chloride 95.4 mmol/L (98-107); Magnesium 1.8 mg/dL (1.7-2.3); Potassium 5.4 mmol/L (3.6-5.0); Total Protein 4.4 g/dL (6.3-8.2)
--- NOTE | 2016-06-06 13:02 | Progress Note ---
Assessment and Plan Patient coded during hemodialysis.Patient developed asystoli. Patient resucitated. Rhytham came back. Patient unresponsive. Patient is on pressors.Patients prognosis is poor. Talked to the patients family. Patients prognosis is very poor. Family planning to make him DNR. I spent critical care time of 1 hour on this patient,Post code in examining,the patient review the chart, review the labs. Ordering chest xray and necessasary labs, talking to the nursing staff, respiratory therapy and work out plan of treatment. - Patient Problems (1) Acute exacerbation of chronic obstructive pulmonary disease (COPD) Current Visit: Yes Status: Acute Plan to address problem: Albuterol/atrovent aerosol treatments q 6 hours. Continue I/V solumedral. (2) Acute on chronic respiratory failure with hypoxemia Current Visit: Yes Status: Acute Plan to address problem: Patient coded, resucitated and placed him on assist control rate 25, tidal volume 500, FIO2 100%,PEEP5 O2 [id number] Continue S/C Lovenox. Continue Pepcid. (3) Elevated d-dimer Current Visit: Yes Status: Acute Plan to address problem: V/Q scan Venous doppler studies of legs. Reported No DVT. (4) Hypotension Current Visit: Yes Status: Acute Plan to address problem: On levophed and vasopressin. Subjective Date of service: 06/06/16 Principal diagnosis: Acute on Chronic Hypoxemic Respiratory Failure Interval history: Patient coded during hemodialysis.Patient developed asystoli. Patient resucitated. Rhytham came back. Patient unresponsive. Patient is on pressors.Patients prognosis is poor. Talked to the patients family. Objective Vital Signs - 12hr 06/06/16 06/06/16 06/06/16 01:00 01:15 01:30 Temperature Pulse Rate 115 H 116 H 113 H Pulse Rate [ Anterior Bilateral Throughout] Pulse Rate [ From Monitor] Respiratory 25 H 25 H 25 H Rate Respiratory Rate [Anterior Bilateral Throughout] Blood Pressure 93/51 101/57 99/48 O2 Sat by Pulse 98 98 99 Oximetry O2 Sat by Pulse Oximetry [ Anterior Bilateral Throughout] 06/06/16 06/06/16 06/06/16 01:37 01:45 01:46 Temperature Pulse Rate 113 H Pulse Rate [ 120 H 118 H Anterior Bilateral Throughout] Pulse Rate [ From Monitor] Respiratory 25 H Rate Respiratory 24 23 Rate [Anterior Bilateral Throughout] Blood Pressure 113/38 O2 Sat by Pulse 100 Oximetry O2 Sat by Pulse Oximetry [ Anterior Bilateral Throughout] 06/06/16 06/06/16 06/06/16 02:01 02:05 02:07 Temperature Pulse Rate 111 H 113 H 112 H Pulse Rate [ Anterior Bilateral Throughout] Pulse Rate [ From Monitor] Respiratory 25 H 18 25 H Rate Respiratory Rate [Anterior Bilateral Throughout] Blood Pressure 86/54 86/54 86/54 O2 Sat by Pulse 98 99 99 Oximetry O2 Sat by Pulse Oximetry [ Anterior Bilateral Throughout] 06/06/16 06/06/16 06/06/16 02:15 02:31 02:45 Temperature Pulse Rate 115 H 110 H 114 H Pulse Rate [ Anterior Bilateral Throughout] Pulse Rate [ From Monitor] Respiratory 24 25 H 25 H Rate Respiratory Rate [Anterior Bilateral Throughout] Blood Pressure 93/60 90/51 90/51 O2 Sat by Pulse 98 99 99 Oximetry O2 Sat by Pulse Oximetry [ Anterior Bilateral Throughout] 06/06/16 06/06/16 06/06/16 03:00 03:09 03:15 Temperature Pulse Rate 111 H 110 H 121 H Pulse Rate [ Anterior Bilateral Throughout] Pulse Rate [ From Monitor] Respiratory 24 25 H 16 Rate Respiratory Rate [Anterior Bilateral Throughout] Blood Pressure 99/53 99/53 99/53 O2 Sat by Pulse 98 99 98 Oximetry O2 Sat by Pulse Oximetry [ Anterior Bilateral Throughout] 06/06/16 06/06/16 06/06/16 03:30 03:35 03:47 Temperature Pulse Rate 119 H 122 H 124 H Pulse Rate [ Anterior Bilateral Throughout] Pulse Rate [ From Monitor] Respiratory 18 26 H Rate Respiratory Rate [Anterior Bilateral Throughout] Blood Pressure 118/65 118/65 112/56 O2 Sat by Pulse 99 99 99 Oximetry O2 Sat by Pulse Oximetry [ Anterior Bilateral Throughout] 06/06/16 06/06/16 06/06/16 04:00 04:01 04:15 Temperature 100.0 F H Pulse Rate 115 H 119 H Pulse Rate [ Anterior Bilateral Throughout] Pulse Rate [ From Monitor] Respiratory 25 H 25 H Rate Respiratory Rate [Anterior Bilateral Throughout] Blood Pressure 114/34 114/34 O2 Sat by Pulse 98 99 Oximetry O2 Sat by Pulse Oximetry [ Anterior Bilateral Throughout] 06/06/16 06/06/16 06/06/16 04:30 04:45 05:00 Temperature Pulse Rate 134 H 121 H 126 H Pulse Rate [ Anterior Bilateral Throughout] Pulse Rate [ From Monitor] Respiratory 22 25 H 21 Rate Respiratory Rate [Anterior Bilateral Throughout] Blood Pressure 138/68 138/68 123/68 O2 Sat by Pulse 99 98 98 Oximetry O2 Sat by Pulse Oximetry [ Anterior Bilateral Throughout] 06/06/16 06/06/16 06/06/16 05:03 05:15 05:31 Temperature Pulse Rate 130 H 123 H 124 H Pulse Rate [ Anterior Bilateral Throughout] Pulse Rate [ From Monitor] Respiratory 26 H 22 25 H Rate Respiratory Rate [Anterior Bilateral Throughout] Blood Pressure 123/68 124/59 129/60 O2 Sat by Pulse 98 99 99 Oximetry O2 Sat by Pulse Oximetry [ Anterior Bilateral Throughout] 06/06/16 06/06/16 06/06/16 05:45 06:00 06:15 Temperature Pulse Rate 118 H 129 H 126 H Pulse Rate [ Anterior Bilateral Throughout] Pulse Rate [ From Monitor] Respiratory 25 H 18 15 Rate Respiratory Rate [Anterior Bilateral Throughout] Blood Pressure 129/60 138/62 138/62 O2 Sat by Pulse 98 99 98 Oximetry O2 Sat by Pulse Oximetry [ Anterior Bilateral Throughout] 06/06/16 06/06/16 06/06/16 06:17 06:20 06:23 Temperature Pulse Rate 122 H 121 H Pulse Rate [ Anterior Bilateral Throughout] Pulse Rate [ From Monitor] Respiratory 25 H 22 25 H Rate Respiratory Rate [Anterior Bilateral Throughout] Blood Pressure 136/57 136/57 O2 Sat by Pulse 98 98 98 Oximetry O2 Sat by Pulse Oximetry [ Anterior Bilateral Throughout] 06/06/16 06/06/16 06/06/16 06:30 06:45 07:01 Temperature Pulse Rate 121 H 125 H 126 H Pulse Rate [ Anterior Bilateral Throughout] Pulse Rate [ From Monitor] Respiratory 21 25 H 25 H Rate Respiratory Rate [Anterior Bilateral Throughout] Blood Pressure 112/44 116/75 130/65 O2 Sat by Pulse 98 98 98 Oximetry O2 Sat by Pulse Oximetry [ Anterior Bilateral Throughout] 06/06/16 06/06/16 06/06/16 07:13 07:15 07:31 Temperature 101.2 F H Pulse Rate 127 H 127 H Pulse Rate [ Anterior Bilateral Throughout] Pulse Rate [ From Monitor] Respiratory 25 H 20 Rate Respiratory Rate [Anterior Bilateral Throughout] Blood Pressure 130/65 143/57 O2 Sat by Pulse 98 98 Oximetry O2 Sat by Pulse Oximetry [ Anterior Bilateral Throughout] 06/06/16 06/06/16 06/06/16 07:45 08:00 08:01 Temperature Pulse Rate 117 H 115 H 120 H Pulse Rate [ Anterior Bilateral Throughout] Pulse Rate [ From Monitor] Respiratory 25 H 25 H 25 H Rate Respiratory Rate [Anterior Bilateral Throughout] Blood Pressure 143/57 118/57 111/53 O2 Sat by Pulse 98 99 98 Oximetry O2 Sat by Pulse Oximetry [ Anterior Bilateral Throughout] 06/06/16 06/06/16 06/06/16 08:15 08:31 08:45 Temperature Pulse Rate 118 H 114 H 109 H Pulse Rate [ Anterior Bilateral Throughout] Pulse Rate [ From Monitor] Respiratory 25 H 25 H 25 H Rate Respiratory Rate [Anterior Bilateral Throughout] Blood Pressure 117/60 135/47 135/47 O2 Sat by Pulse 99 99 98 Oximetry O2 Sat by Pulse Oximetry [ Anterior Bilateral Throughout] 06/06/16 06/06/16 06/06/16 09:01 09:02 09:15 Temperature Pulse Rate 117 H 107 H Pulse Rate [ 115 H Anterior Bilateral Throughout] Pulse Rate [ From Monitor] Respiratory 25 H 25 H Rate Respiratory 25 H Rate [Anterior Bilateral Throughout] Blood Pressure 118/57 118/57 O2 Sat by Pulse 99 100 Oximetry O2 Sat by Pulse Oximetry [ Anterior Bilateral Throughout] 06/06/16 06/06/16 06/06/16 09:31 09:38 09:45 Temperature 101.2 F H Pulse Rate 110 H 127 H Pulse Rate [ 109 H Anterior Bilateral Throughout] Pulse Rate [ From Monitor] Respiratory 25 H 25 H Rate Respiratory 25 H Rate [Anterior Bilateral Throughout] Blood Pressure 129/45 101/61 O2 Sat by Pulse 100 98 Oximetry O2 Sat by Pulse 98 Oximetry [ Anterior Bilateral Throughout] 06/06/16 06/06/16 06/06/16 10:00 10:01 10:15 Temperature Pulse Rate 122 H 127 H 133 H Pulse Rate [ Anterior Bilateral Throughout] Pulse Rate [ 133 H From Monitor] Respiratory 25 H 23 Rate Respiratory Rate [Anterior Bilateral Throughout] Blood Pressure 101/61 127/55 127/55 O2 Sat by Pulse 98 99 Oximetry O2 Sat by Pulse Oximetry [ Anterior Bilateral Throughout] 06/06/16 06/06/16 06/06/16 10:30 10:45 11:00 Temperature Pulse Rate 141 H 137 H 133 H Pulse Rate [ Anterior Bilateral Throughout] Pulse Rate [ From Monitor] Respiratory Rate Respiratory Rate [Anterior Bilateral Throughout] Blood Pressure 99/53 100/50 95/46 O2 Sat by Pulse Oximetry O2 Sat by Pulse Oximetry [ Anterior Bilateral Throughout] 06/06/16 06/06/16 06/06/16 11:15 11:30 12:00 Temperature 97.4 F L Pulse Rate 119 H 114 H Pulse Rate [ Anterior Bilateral Throughout] Pulse Rate [ From Monitor] Respiratory Rate Respiratory Rate [Anterior Bilateral Throughout] Blood Pressure 92/47 104/46 O2 Sat by Pulse Oximetry O2 Sat by Pulse Oximetry [ Anterior Bilateral Throughout] Constitutional: other (Patient coded. Resucitated, unresponsive.) Eyes: non-icteric ENT: oropharynx moist Neck: supple, no lymphadenopathy Effort: mildly labored Ascultation: Bilateral: diminished breath sounds, rales, rhonchi Cardiovascular: regular rate and rhythm Gastrointestinal: normoactive bowel sounds, soft, non-tender, other (distended) Integumentary: normal Extremities: no cyanosis, no edema, pink and warm, pulses normal Neurologic: non-focal exam (grossly), pupils equal and round, unable to assess Psychiatric: other (sedated) CBC and BMP: 06/06/16 12:10 06/06/16 12:10 ABG, PT/INR, D-dimer: ABG POC ABG pH 7.365 (7.35-7.45) 06/06/16 04:57 POC ABG pCO2 37.2 (35-45) 06/06/16 04:57 POC ABG pO2 88 (80-105) 06/06/16 04:57 POC ABG HCO3 21.3 06/06/16 04:57 POC ABG Total CO2 22 06/06/16 04:57 POC ABG O2 Sat 96 06/06/16 04:57 PT/INR, D-dimer PT 19.8 Sec. (12.2-14.9) H 06/06/16 12:10 INR 1.68 (0.87-1.13) H 06/06/16 12:10 D-Dimer 239.48 ng/mlDDU (0-234) H 05/23/16 14:16 Abnormal lab findings: Abnormal Labs 05/23/16 05/23/16 05/23/16 06:02 09:35 11:22 WBC RBC Hgb Hct MCHC RDW Plt Count Seg Neuts % (Manual) Lymphocytes % (Manual) Nucleated RBC % Seg Neutrophils # Man Lymphocytes # (Manual) Monocytes # (Manual) PT INR APTT Fibrinogen D-Dimer Heparin Anti-Xa Level POC ABG pH POC ABG pCO2 POC ABG pO2 Sodium Potassium Chloride Carbon Dioxide BUN Creatinine Glucose POC Glucose 174 H 232 H Hemoglobin A1c 6.4 H Lactic Acid Calcium Phosphorus Iron TIBC AST ALT Alkaline Phosphatase Total Creatine Kinase CK-MB (CK-2) C-Reactive Protein Total Protein Albumin Vitamin B12 Urine WBC (Auto) Urine Creatinine Crossmatch 05/23/16 05/23/16 05/23/16 14:16 16:07 22:23 WBC RBC Hgb Hct MCHC RDW Plt Count Seg Neuts % (Manual) Lymphocytes % (Manual) Nucleated RBC % Seg Neutrophils # Man Lymphocytes # (Manual) Monocytes # (Manual) PT INR APTT Fibrinogen D-Dimer 239.48 H Heparin Anti-Xa Level POC ABG pH POC ABG pCO2 POC ABG pO2 Sodium Potassium Chloride Carbon Dioxide BUN Creatinine Glucose POC Glucose 126 H 171 H Hemoglobin A1c Lactic Acid Calcium Phosphorus Iron TIBC AST ALT Alkaline Phosphatase Total Creatine Kinase CK-MB (CK-2) C-Reactive Protein Total Protein Albumin Vitamin B12 Urine WBC (Auto) Urine Creatinine Crossmatch 05/24/16 05/24/16 05/24/16 08:08 08:08 08:19 WBC RBC 3.24 L Hgb 9.6 L Hct 28.6 L MCHC RDW 15.7 H Plt Count Seg Neuts % (Manual) 71.0 H Lymphocytes % (Manual) 7.0 L Nucleated RBC % Seg Neutrophils # Man Lymphocytes # (Manual) 0.8 L Monocytes # (Manual) PT INR APTT Fibrinogen D-Dimer Heparin Anti-Xa Level POC ABG pH POC ABG pCO2 POC ABG pO2 Sodium 132 L Potassium Chloride 93.9 L Carbon Dioxide 18 L BUN 39 H Creatinine Glucose 166 H POC Glucose 173 H Hemoglobin A1c Lactic Acid Calcium Phosphorus Iron TIBC AST ALT Alkaline Phosphatase Total Creatine Kinase CK-MB (CK-2) C-Reactive Protein Total Protein Albumin Vitamin B12 Urine WBC (Auto) Urine Creatinine Crossmatch 05/24/16 05/24/16 05/24/16 11:55 17:15 22:18 WBC RBC Hgb Hct MCHC RDW Plt Count Seg Neuts % (Manual) Lymphocytes % (Manual) Nucleated RBC % Seg Neutrophils # Man Lymphocytes # (Manual) Monocytes # (Manual) PT INR APTT Fibrinogen D-Dimer Heparin Anti-Xa Level POC ABG pH POC ABG pCO2 POC ABG pO2 Sodium Potassium Chloride Carbon Dioxide BUN Creatinine Glucose POC Glucose 210 H 147 H 163 H Hemoglobin A1c Lactic Acid Calcium Phosphorus Iron TIBC AST ALT Alkaline Phosphatase Total Creatine Kinase CK-MB (CK-2) C-Reactive Protein Total Protein Albumin Vitamin B12 Urine WBC (Auto) Urine Creatinine Crossmatch 05/25/16 05/25/16 05/25/16 08:43 13:38 14:19 WBC RBC Hgb 10.0 L Hct 30.4 L MCHC RDW Plt Count Seg Neuts % (Manual) Lymphocytes % (Manual) Nucleated RBC % Seg Neutrophils # Man Lymphocytes # (Manual) Monocytes # (Manual) PT INR APTT Fibrinogen D-Dimer Heparin Anti-Xa Level POC ABG pH POC ABG pCO2 POC ABG pO2 Sodium Potassium Chloride Carbon Dioxide BUN Creatinine Glucose POC Glucose 177 H 180 H Hemoglobin A1c Lactic Acid Calcium Phosphorus Iron TIBC AST ALT Alkaline Phosphatase Total Creatine Kinase CK-MB (CK-2) C-Reactive Protein Total Protein Albumin Vitamin B12 Urine WBC (Auto) Urine Creatinine Crossmatch 05/25/16 05/25/16 05/25/16 16:16 16:25 21:32 WBC RBC Hgb Hct MCHC RDW Plt Count Seg Neuts % (Manual) Lymphocytes % (Manual) Nucleated RBC % Seg Neutrophils # Man Lymphocytes # (Manual) Monocytes # (Manual) PT INR APTT Fibrinogen D-Dimer Heparin Anti-Xa Level POC ABG pH POC ABG pCO2 34.3 L POC ABG pO2 114 H Sodium Potassium Chloride Carbon Dioxide BUN Creatinine Glucose POC Glucose 193 H 183 H Hemoglobin A1c Lactic Acid Calcium Phosphorus Iron TIBC AST ALT Alkaline Phosphatase Total Creatine Kinase CK-MB (CK-2) C-Reactive Protein Total Protein Albumin Vitamin B12 Urine WBC (Auto) Urine Creatinine Crossmatch 05/26/16 05/26/16 05/26/16 00:06 07:42 10:17 WBC RBC Hgb Hct MCHC RDW Plt Count Seg Neuts % (Manual) Lymphocytes % (Manual) Nucleated RBC % Seg Neutrophils # Man Lymphocytes # (Manual) Monocytes # (Manual) PT INR APTT Fibrinogen D-Dimer Heparin Anti-Xa Level 1.23 H 0.98 H POC ABG pH POC ABG pCO2 POC ABG pO2 Sodium Potassium Chloride Carbon Dioxide BUN Creatinine Glucose POC Glucose 206 H Hemoglobin A1c Lactic Acid Calcium Phosphorus Iron TIBC AST ALT Alkaline Phosphatase Total Creatine Kinase CK-MB (CK-2) C-Reactive Protein Total Protein Albumin Vitamin B12 Urine WBC (Auto) Urine Creatinine Crossmatch 05/26/16 05/26/16 05/26/16 11:57 12:38 13:52 WBC 19.7 H RBC 2.56 L Hgb 7.4 L Hct 23.2 L D MCHC RDW 15.8 H Plt Count Seg Neuts % (Manual) Lymphocytes % (Manual) Nucleated RBC % Seg Neutrophils # Man Lymphocytes # (Manual) Monocytes # (Manual) PT INR APTT Fibrinogen D-Dimer Heparin Anti-Xa Level POC ABG pH 7.298 L POC ABG pCO2 27.8 L POC ABG pO2 132 H Sodium Potassium Chloride Carbon Dioxide BUN Creatinine Glucose POC Glucose 338 H Hemoglobin A1c Lactic Acid Calcium Phosphorus Iron TIBC AST ALT Alkaline Phosphatase Total Creatine Kinase CK-MB (CK-2) C-Reactive Protein Total Protein Albumin Vitamin B12 Urine WBC (Auto) Urine Creatinine Crossmatch 05/26/16 05/26/16 05/26/16 15:47 15:47 17:06 WBC RBC Hgb Hct MCHC RDW Plt Count Seg Neuts % (Manual) Lymphocytes % (Manual) Nucleated RBC % Seg Neutrophils # Man Lymphocytes # (Manual) Monocytes # (Manual) PT INR APTT Fibrinogen D-Dimer Heparin Anti-Xa Level 1.35 H POC ABG pH 7.108 L POC ABG pCO2 POC ABG pO2 287 H Sodium Potassium Chloride Carbon Dioxide BUN Creatinine Glucose POC Glucose Hemoglobin A1c Lactic Acid 9.0 H* Calcium Phosphorus Iron TIBC AST ALT Alkaline Phosphatase Total Creatine Kinase CK-MB (CK-2) C-Reactive Protein Total Protein Albumin Vitamin B12 Urine WBC (Auto) Urine Creatinine Crossmatch 05/26/16 05/26/16 05/26/16 17:12 17:15 17:53 WBC RBC Hgb Hct MCHC RDW Plt Count Seg Neuts % (Manual) Lymphocytes % (Manual) Nucleated RBC % Seg Neutrophils # Man Lymphocytes # (Manual) Monocytes # (Manual) PT INR APTT Fibrinogen D-Dimer Heparin Anti-Xa Level POC ABG pH 7.061 L POC ABG pCO2 47.3 H POC ABG pO2 35 L Sodium Potassium Chloride Carbon Dioxide BUN Creatinine Glucose POC Glucose 275 H Hemoglobin A1c Lactic Acid Calcium Phosphorus Iron TIBC AST ALT Alkaline Phosphatase Total Creatine Kinase CK-MB (CK-2) C-Reactive Protein Total Protein Albumin Vitamin B12 Urine WBC (Auto) Urine Creatinine Crossmatch See Detail 05/26/16 05/26/16 05/26/16 17:53 22:08 23:00 WBC RBC Hgb 6.7 L Hct 22.3 L MCHC RDW Plt Count Seg Neuts % (Manual) Lymphocytes % (Manual) Nucleated RBC % Seg Neutrophils # Man Lymphocytes # (Manual) Monocytes # (Manual) PT INR APTT Fibrinogen D-Dimer Heparin Anti-Xa Level POC ABG pH 7.195 L POC ABG pCO2 POC ABG pO2 129 H Sodium Potassium Chloride Carbon Dioxide BUN Creatinine Glucose POC Glucose 250 H Hemoglobin A1c Lactic Acid Calcium Phosphorus Iron TIBC AST ALT Alkaline Phosphatase Total Creatine Kinase CK-MB (CK-2) C-Reactive Protein Total Protein Albumin Vitamin B12 Urine WBC (Auto) Urine Creatinine Crossmatch 05/27/16 05/27/16 05/27/16 00:26 01:00 05:13 WBC RBC Hgb 8.0 L Hct 24.6 L MCHC RDW Plt Count Seg Neuts % (Manual) Lymphocytes % (Manual) Nucleated RBC % Seg Neutrophils # Man Lymphocytes # (Manual) Monocytes # (Manual) PT INR APTT Fibrinogen D-Dimer Heparin Anti-Xa Level POC ABG pH 7.273 L POC ABG pCO2 POC ABG pO2 62 L Sodium Potassium Chloride Carbon Dioxide BUN Creatinine Glucose POC Glucose Hemoglobin A1c Lactic Acid Calcium Phosphorus Iron TIBC AST ALT Alkaline Phosphatase Total Creatine Kinase CK-MB (CK-2) C-Reactive Protein Total Protein Albumin Vitamin B12 Urine WBC (Auto) Urine Creatinine Crossmatch 05/27/16 05/27/16 05/27/16 05:50 05:50 07:54 WBC RBC Hgb 7.6 L Hct 23.1 L MCHC RDW Plt Count Seg Neuts % (Manual) Lymphocytes % (Manual) Nucleated RBC % Seg Neutrophils # Man Lymphocytes # (Manual) Monocytes # (Manual) PT INR APTT Fibrinogen D-Dimer Heparin Anti-Xa Level POC ABG pH POC ABG pCO2 POC ABG pO2 Sodium Potassium Chloride Carbon Dioxide BUN Creatinine Glucose POC Glucose 385 H Hemoglobin A1c Lactic Acid 4.0 H* Calcium Phosphorus Iron TIBC AST ALT Alkaline Phosphatase Total Creatine Kinase CK-MB (CK-2) C-Reactive Protein Total Protein Albumin Vitamin B12 Urine WBC (Auto) Urine Creatinine Crossmatch 05/27/16 05/27/16 05/27/16 08:30 11:57 16:04 WBC RBC Hgb Hct MCHC RDW Plt Count Seg Neuts % (Manual) Lymphocytes % (Manual) Nucleated RBC % Seg Neutrophils # Man Lymphocytes # (Manual) Monocytes # (Manual) PT INR APTT Fibrinogen D-Dimer Heparin Anti-Xa Level POC ABG pH POC ABG pCO2 POC ABG pO2 Sodium Potassium Chloride 94.8 L Carbon Dioxide BUN 61 H Creatinine 2.9 H D Glucose 411 H POC Glucose 394 H 292 H Hemoglobin A1c Lactic Acid Calcium 6.3 L D Phosphorus Iron TIBC AST 7200 H ALT 4300 H Alkaline Phosphatase Total Creatine Kinase CK-MB (CK-2) C-Reactive Protein Total Protein 4.5 L D Albumin 3.0 L Vitamin B12 Urine WBC (Auto) Urine Creatinine Crossmatch 05/27/16 05/27/16 05/27/16 17:15 18:00 18:25 WBC RBC Hgb 7.5 L Hct 22.5 L MCHC RDW Plt Count Seg Neuts % (Manual) Lymphocytes % (Manual) Nucleated RBC % Seg Neutrophils # Man Lymphocytes # (Manual) Monocytes # (Manual) PT INR APTT Fibrinogen D-Dimer Heparin Anti-Xa Level POC ABG pH POC ABG pCO2 POC ABG pO2 Sodium Potassium Chloride Carbon Dioxide BUN Creatinine Glucose POC Glucose Hemoglobin A1c Lactic Acid Calcium Phosphorus Iron TIBC AST 8515 H ALT 4517 H Alkaline Phosphatase Total Creatine Kinase CK-MB (CK-2) C-Reactive Protein Total Protein 4.6 L Albumin 2.8 L Vitamin B12 Urine WBC (Auto) Urine Creatinine 69.9 H Crossmatch 05/27/16 05/28/16 05/28/16 21:44 04:50 04:50 WBC 19.9 H RBC 2.66 L Hgb 7.6 L Hct 23.3 L MCHC RDW 15.4 H Plt Count 101 L Seg Neuts % (Manual) Lymphocytes % (Manual) Nucleated RBC % Seg Neutrophils # Man Lymphocytes # (Manual) Monocytes # (Manual) PT INR APTT Fibrinogen D-Dimer Heparin Anti-Xa Level POC ABG pH POC ABG pCO2 POC ABG pO2 Sodium Potassium Chloride Carbon Dioxide BUN 79 H Creatinine 3.9 H Glucose 166 H POC Glucose 176 H Hemoglobin A1c Lactic Acid Calcium 6.3 L Phosphorus Iron TIBC AST 5609 H ALT 4060 H Alkaline Phosphatase Total Creatine Kinase 929 H CK-MB (CK-2) C-Reactive Protein Total Protein 4.8 L Albumin 2.9 L Vitamin B12 Urine WBC (Auto) Urine Creatinine Crossmatch 05/28/16 05/28/16 05/28/16 05:17 07:38 12:41 WBC RBC Hgb Hct MCHC RDW Plt Count Seg Neuts % (Manual) Lymphocytes % (Manual) Nucleated RBC % Seg Neutrophils # Man Lymphocytes # (Manual) Monocytes # (Manual) PT INR APTT Fibrinogen D-Dimer Heparin Anti-Xa Level POC ABG pH POC ABG pCO2 POC ABG pO2 115 H Sodium Potassium Chloride Carbon Dioxide BUN Creatinine Glucose POC Glucose 168 H 173 H Hemoglobin A1c Lactic Acid Calcium Phosphorus Iron TIBC AST ALT Alkaline Phosphatase Total Creatine Kinase CK-MB (CK-2) C-Reactive Protein Total Protein Albumin Vitamin B12 Urine WBC (Auto) Urine Creatinine Crossmatch 05/28/16 05/28/16 05/29/16 16:12 21:45 04:15 WBC RBC Hgb Hct MCHC RDW Plt Count 71 L Seg Neuts % (Manual) Lymphocytes % (Manual) Nucleated RBC % Seg Neutrophils # Man Lymphocytes # (Manual) Monocytes # (Manual) PT INR APTT Fibrinogen D-Dimer Heparin Anti-Xa Level POC ABG pH POC ABG pCO2 POC ABG pO2 Sodium Potassium Chloride Carbon Dioxide BUN Creatinine Glucose POC Glucose 210 H 221 H Hemoglobin A1c Lactic Acid Calcium Phosphorus Iron TIBC AST ALT Alkaline Phosphatase Total Creatine Kinase CK-MB (CK-2) C-Reactive Protein Total Protein Albumin Vitamin B12 Urine WBC (Auto) Urine Creatinine Crossmatch 05/29/16 05/29/16 05/29/16 04:15 06:14 07:28 WBC RBC Hgb Hct MCHC RDW Plt Count Seg Neuts % (Manual) Lymphocytes % (Manual) Nucleated RBC % Seg Neutrophils # Man Lymphocytes # (Manual) Monocytes # (Manual) PT INR APTT Fibrinogen D-Dimer Heparin Anti-Xa Level POC ABG pH 7.285 L POC ABG pCO2 POC ABG pO2 63 L Sodium Potassium Chloride Carbon Dioxide 21 L BUN 98 H Creatinine 4.7 H Glucose 220 H POC Glucose 232 H Hemoglobin A1c Lactic Acid Calcium 5.8 L* Phosphorus Iron TIBC AST 1464 H ALT 2628 H Alkaline Phosphatase Total Creatine Kinase 792 H CK-MB (CK-2) C-Reactive Protein Total Protein 4.5 L Albumin 2.8 L Vitamin B12 Urine WBC (Auto) Urine Creatinine Crossmatch 05/29/16 05/29/16 05/29/16 11:33 11:58 15:22 WBC RBC Hgb Hct MCHC RDW Plt Count Seg Neuts % (Manual) Lymphocytes % (Manual) Nucleated RBC % Seg Neutrophils # Man Lymphocytes # (Manual) Monocytes # (Manual) PT INR APTT Fibrinogen D-Dimer Heparin Anti-Xa Level POC ABG pH 7.291 L POC ABG pCO2 45.3 H POC ABG pO2 Sodium Potassium Chloride Carbon Dioxide BUN Creatinine Glucose POC Glucose 196 H 184 H Hemoglobin A1c Lactic Acid Calcium Phosphorus Iron TIBC AST ALT Alkaline Phosphatase Total Creatine Kinase CK-MB (CK-2) C-Reactive Protein Total Protein Albumin Vitamin B12 Urine WBC (Auto) Urine Creatinine Crossmatch 05/29/16 05/30/16 05/30/16 22:16 04:53 05:30 WBC RBC Hgb Hct MCHC RDW Plt Count Seg Neuts % (Manual) Lymphocytes % (Manual) Nucleated RBC % Seg Neutrophils # Man Lymphocytes # (Manual) Monocytes # (Manual) PT INR APTT Fibrinogen D-Dimer Heparin Anti-Xa Level POC ABG pH 7.303 L POC ABG pCO2 POC ABG pO2 Sodium Potassium 5.5 H Chloride Carbon Dioxide BUN 113 H Creatinine 5.3 H Glucose 240 H POC Glucose 274 H Hemoglobin A1c Lactic Acid Calcium 5.5 L* Phosphorus 6.6 H Iron TIBC AST 380 H ALT 1647 H Alkaline Phosphatase Total Creatine Kinase 2131 H CK-MB (CK-2) C-Reactive Protein Total Protein 4.4 L Albumin 2.8 L Vitamin B12 Urine WBC (Auto) Urine Creatinine Crossmatch 05/30/16 05/30/16 05/30/16 05:30 06:01 08:25 WBC 15.4 H RBC 2.45 L Hgb 7.0 L Hct 22.0 L MCHC RDW 16.1 H Plt Count 51 L Seg Neuts % (Manual) Lymphocytes % (Manual) 9.0 L Nucleated RBC % 7.0 H Seg Neutrophils # Man 8.5 H Lymphocytes # (Manual) Monocytes # (Manual) PT INR APTT Fibrinogen D-Dimer Heparin Anti-Xa Level POC ABG pH POC ABG pCO2 POC ABG pO2 Sodium Potassium Chloride Carbon Dioxide BUN Creatinine Glucose POC Glucose 268 H Hemoglobin A1c Lactic Acid Calcium Phosphorus Iron TIBC AST ALT Alkaline Phosphatase Total Creatine Kinase CK-MB (CK-2) C-Reactive Protein Total Protein Albumin Vitamin B12 Urine WBC (Auto) Urine Creatinine Crossmatch See Detail 05/30/16 05/30/16 05/30/16 12:04 18:54 22:23 WBC RBC Hgb Hct MCHC RDW Plt Count Seg Neuts % (Manual) Lymphocytes % (Manual) Nucleated RBC % Seg Neutrophils # Man Lymphocytes # (Manual) Monocytes # (Manual) PT INR APTT Fibrinogen D-Dimer Heparin Anti-Xa Level POC ABG pH POC ABG pCO2 POC ABG pO2 Sodium Potassium Chloride Carbon Dioxide BUN Creatinine Glucose POC Glucose 251 H 210 H 199 H Hemoglobin A1c Lactic Acid Calcium Phosphorus Iron TIBC AST ALT Alkaline Phosphatase Total Creatine Kinase CK-MB (CK-2) C-Reactive Protein Total Protein Albumin Vitamin B12 Urine WBC (Auto) Urine Creatinine Crossmatch 05/31/16 05/31/16 05/31/16 05:50 05:50 06:19 WBC 22.0 H RBC 3.61 L Hgb 10.3 L D Hct 31.9 L D MCHC RDW 15.6 H Plt Count 42 L Seg Neuts % (Manual) Lymphocytes % (Manual) Nucleated RBC % Seg Neutrophils # Man Lymphocytes # (Manual) Monocytes # (Manual) PT INR APTT Fibrinogen D-Dimer Heparin Anti-Xa Level POC ABG pH 7.320 L POC ABG pCO2 45.2 H POC ABG pO2 Sodium 134 L Potassium 5.1 H Chloride 97.0 L Carbon Dioxide BUN 77 H Creatinine 3.6 H Glucose 225 H POC Glucose Hemoglobin A1c Lactic Acid Calcium 6.0 L Phosphorus Iron TIBC AST 133 H ALT 1165 H Alkaline Phosphatase Total Creatine Kinase 1486 H CK-MB (CK-2) C-Reactive Protein Total Protein 4.5 L Albumin 2.7 L Vitamin B12 Urine WBC (Auto) Urine Creatinine Crossmatch 05/31/16 05/31/16 05/31/16 07:42 12:13 12:34 WBC RBC Hgb Hct MCHC RDW Plt Count Seg Neuts % (Manual) Lymphocytes % (Manual) Nucleated RBC % Seg Neutrophils # Man Lymphocytes # (Manual) Monocytes # (Manual) PT INR APTT Fibrinogen D-Dimer Heparin Anti-Xa Level POC ABG pH 7.298 L POC ABG pCO2 POC ABG pO2 Sodium Potassium Chloride Carbon Dioxide BUN Creatinine Glucose POC Glucose 250 H 209 H Hemoglobin A1c Lactic Acid Calcium Phosphorus Iron TIBC AST ALT Alkaline Phosphatase Total Creatine Kinase CK-MB (CK-2) C-Reactive Protein Total Protein Albumin Vitamin B12 Urine WBC (Auto) Urine Creatinine Crossmatch 05/31/16 05/31/16 05/31/16 13:45 17:43 21:38 WBC RBC Hgb Hct MCHC RDW Plt Count Seg Neuts % (Manual) Lymphocytes % (Manual) Nucleated RBC % Seg Neutrophils # Man Lymphocytes # (Manual) Monocytes # (Manual) PT INR APTT Fibrinogen D-Dimer Heparin Anti-Xa Level POC ABG pH POC ABG pCO2 POC ABG pO2 Sodium Potassium Chloride Carbon Dioxide BUN Creatinine Glucose POC Glucose 242 H 248 H Hemoglobin A1c Lactic Acid Calcium Phosphorus Iron TIBC AST ALT Alkaline Phosphatase Total Creatine Kinase CK-MB (CK-2) C-Reactive Protein 4.10 H Total Protein Albumin Vitamin B12 Urine WBC (Auto) Urine Creatinine Crossmatch 06/01/16 06/01/16 06/01/16 03:35 03:35 04:16 WBC 28.8 H RBC 3.51 L Hgb 10.0 L Hct 31.2 L MCHC RDW 15.3 H Plt Count 42 L Seg Neuts % (Manual) 74.0 H Lymphocytes % (Manual) 3.0 L Nucleated RBC % 2.0 H Seg Neutrophils # Man 21.3 H Lymphocytes # (Manual) 0.9 L Monocytes # (Manual) 1.7 H PT INR APTT Fibrinogen D-Dimer Heparin Anti-Xa Level POC ABG pH 7.332 L POC ABG pCO2 POC ABG pO2 56 L Sodium Potassium Chloride Carbon Dioxide 21 L BUN 97 H Creatinine 3.9 H Glucose 206 H POC Glucose Hemoglobin A1c Lactic Acid Calcium 5.4 L* Phosphorus Iron TIBC AST 70 H ALT 732 H Alkaline Phosphatase Total Creatine Kinase CK-MB (CK-2) C-Reactive Protein Total Protein 4.3 L Albumin 2.4 L Vitamin B12 Urine WBC (Auto) Urine Creatinine Crossmatch 06/01/16 06/01/16 06/01/16 07:31 11:38 15:23 WBC RBC Hgb Hct MCHC RDW Plt Count Seg Neuts % (Manual) Lymphocytes % (Manual) Nucleated RBC % Seg Neutrophils # Man Lymphocytes # (Manual) Monocytes # (Manual) PT INR APTT Fibrinogen D-Dimer Heparin Anti-Xa Level POC ABG pH POC ABG pCO2 POC ABG pO2 Sodium Potassium Chloride Carbon Dioxide BUN Creatinine Glucose POC Glucose 232 H 230 H 239 H Hemoglobin A1c Lactic Acid Calcium Phosphorus Iron TIBC AST ALT Alkaline Phosphatase Total Creatine Kinase CK-MB (CK-2) C-Reactive Protein Total Protein Albumin Vitamin B12 Urine WBC (Auto) Urine Creatinine Crossmatch 06/01/16 06/02/16 06/02/16 17:15 00:32 03:17 WBC RBC Hgb Hct MCHC RDW Plt Count Seg Neuts % (Manual) Lymphocytes % (Manual) Nucleated RBC % Seg Neutrophils # Man Lymphocytes # (Manual) Monocytes # (Manual) PT INR APTT Fibrinogen D-Dimer Heparin Anti-Xa Level POC ABG pH 7.341 L POC ABG pCO2 POC ABG pO2 Sodium Potassium Chloride Carbon Dioxide BUN Creatinine Glucose POC Glucose 256 H Hemoglobin A1c Lactic Acid Calcium Phosphorus Iron TIBC AST ALT Alkaline Phosphatase Total Creatine Kinase CK-MB (CK-2) C-Reactive Protein Total Protein Albumin Vitamin B12 Urine WBC (Auto) 63.0 H Urine Creatinine Crossmatch 06/02/16 06/02/16 06/02/16 04:00 04:00 07:51 WBC 37.1 H RBC 3.18 L Hgb 9.2 L Hct 28.5 L MCHC RDW Plt Count 49 L Seg Neuts % (Manual) Lymphocytes % (Manual) Nucleated RBC % Seg Neutrophils # Man Lymphocytes # (Manual) Monocytes # (Manual) PT INR APTT Fibrinogen D-Dimer Heparin Anti-Xa Level POC ABG pH POC ABG pCO2 POC ABG pO2 Sodium Potassium Chloride Carbon Dioxide BUN 124 H Creatinine 5.0 H Glucose 242 H POC Glucose 245 H Hemoglobin A1c Lactic Acid Calcium 5.3 L* Phosphorus Iron TIBC AST 50 H ALT 458 H Alkaline Phosphatase Total Creatine Kinase CK-MB (CK-2) C-Reactive Protein Total Protein 4.1 L Albumin 2.3 L Vitamin B12 Urine WBC (Auto) Urine Creatinine Crossmatch 06/02/16 06/02/16 06/02/16 11:41 16:10 23:57 WBC RBC Hgb Hct MCHC RDW Plt Count Seg Neuts % (Manual) Lymphocytes % (Manual) Nucleated RBC % Seg Neutrophils # Man Lymphocytes # (Manual) Monocytes # (Manual) PT INR APTT Fibrinogen D-Dimer Heparin Anti-Xa Level POC ABG pH POC ABG pCO2 POC ABG pO2 Sodium Potassium Chloride Carbon Dioxide BUN Creatinine Glucose POC Glucose 254 H 215 H 162 H Hemoglobin A1c Lactic Acid Calcium Phosphorus Iron TIBC AST ALT Alkaline Phosphatase Total Creatine Kinase CK-MB (CK-2) C-Reactive Protein Total Protein Albumin Vitamin B12 Urine WBC (Auto) Urine Creatinine Crossmatch 06/03/16 06/03/16 06/03/16 04:50 04:50 13:40 WBC 37.6 H RBC 2.72 L Hgb 7.8 L Hct 24.5 L MCHC RDW Plt Count 48 L Seg Neuts % (Manual) 96.0 H Lymphocytes % (Manual) 1.5 L Nucleated RBC % Seg Neutrophils # Man 36.1 H Lymphocytes # (Manual) 0.6 L Monocytes # (Manual) PT INR APTT Fibrinogen D-Dimer Heparin Anti-Xa Level POC ABG pH POC ABG pCO2 POC ABG pO2 Sodium Potassium Chloride Carbon Dioxide BUN 76 H Creatinine 3.5 H Glucose POC Glucose Hemoglobin A1c Lactic Acid Calcium 5.2 L* Phosphorus Iron TIBC AST ALT 307 H Alkaline Phosphatase Total Creatine Kinase CK-MB (CK-2) C-Reactive Protein Total Protein 4.0 L Albumin 2.3 L Vitamin B12 Urine WBC (Auto) Urine Creatinine Crossmatch See Detail 06/03/16 06/03/16 06/03/16 19:30 19:30 19:30 WBC 38.3 H RBC 2.87 L Hgb 8.3 L Hct 25.5 L MCHC RDW 15.3 H Plt Count 59 L Seg Neuts % (Manual) 97.0 H Lymphocytes % (Manual) 1.0 L Nucleated RBC % 2.0 H Seg Neutrophils # Man 37.2 H Lymphocytes # (Manual) 0.4 L Monocytes # (Manual) PT 15.5 H INR 1.24 H APTT Fibrinogen 191 L D-Dimer Heparin Anti-Xa Level POC ABG pH POC ABG pCO2 POC ABG pO2 Sodium Potassium Chloride Carbon Dioxide BUN Creatinine Glucose POC Glucose Hemoglobin A1c Lactic Acid Calcium Phosphorus Iron 31 L TIBC 151 L AST ALT Alkaline Phosphatase Total Creatine Kinase CK-MB (CK-2) C-Reactive Protein Total Protein Albumin Vitamin B12 Urine WBC (Auto) Urine Creatinine Crossmatch 01/11/17 01/11/17 01/12/17 19:30 23:28 05:10 WBC RBC Hgb Hct MCHC RDW Plt Count Seg Neuts % (Manual) Lymphocytes % (Manual) Nucleated RBC % Seg Neutrophils # Man Lymphocytes # (Manual) Monocytes # (Manual) PT INR APTT Fibrinogen D-Dimer Heparin Anti-Xa Level POC ABG pH 7.310 L POC ABG pCO2 POC ABG pO2 73 L Sodium Potassium Chloride Carbon Dioxide BUN Creatinine Glucose POC Glucose 118 H Hemoglobin A1c Lactic Acid Calcium Phosphorus Iron TIBC AST ALT Alkaline Phosphatase Total Creatine Kinase CK-MB (CK-2) C-Reactive Protein Total Protein Albumin Vitamin B12 1851 H Urine WBC (Auto) Urine Creatinine Crossmatch 06/04/16 06/04/16 06/04/16 05:25 05:25 05:25 WBC 35.9 H RBC 2.61 L Hgb 7.4 L Hct 23.7 L MCHC 31 L RDW 15.4 H Plt Count 63 L Seg Neuts % (Manual) 93.0 H Lymphocytes % (Manual) 0 L Nucleated RBC % 3.0 H Seg Neutrophils # Man 33.4 H Lymphocytes # (Manual) 0.0 L Monocytes # (Manual) PT INR APTT Fibrinogen 157 L D-Dimer Heparin Anti-Xa Level POC ABG pH POC ABG pCO2 POC ABG pO2 Sodium Potassium 5.5 H Chloride Carbon Dioxide 18 L BUN 95 H Creatinine 4.3 H Glucose 119 H POC Glucose Hemoglobin A1c Lactic Acid Calcium 5.0 L* Phosphorus Iron TIBC AST 57 H ALT 214 H Alkaline Phosphatase Total Creatine Kinase CK-MB (CK-2) C-Reactive Protein Total Protein 3.5 L Albumin 2.0 L Vitamin B12 Urine WBC (Auto) Urine Creatinine Crossmatch 06/04/16 06/04/16 06/04/16 05:46 11:24 17:35 WBC RBC Hgb Hct MCHC RDW Plt Count Seg Neuts % (Manual) Lymphocytes % (Manual) Nucleated RBC % Seg Neutrophils # Man Lymphocytes # (Manual) Monocytes # (Manual) PT INR APTT Fibrinogen D-Dimer Heparin Anti-Xa Level POC ABG pH POC ABG pCO2 POC ABG pO2 Sodium Potassium Chloride Carbon Dioxide BUN Creatinine Glucose POC Glucose 136 H 184 H 223 H Hemoglobin A1c Lactic Acid Calcium Phosphorus Iron TIBC AST ALT Alkaline Phosphatase Total Creatine Kinase CK-MB (CK-2) C-Reactive Protein Total Protein Albumin Vitamin B12 Urine WBC (Auto) Urine Creatinine Crossmatch 06/04/16 06/04/16 06/05/16 21:00 23:43 05:00 WBC 38.5 H RBC 2.94 L Hgb 8.6 L Hct 26.5 L MCHC RDW Plt Count 62 L Seg Neuts % (Manual) 71.0 H Lymphocytes % (Manual) 4.0 L Nucleated RBC % Seg Neutrophils # Man 27.3 H Lymphocytes # (Manual) Monocytes # (Manual) 1.2 H PT INR APTT Fibrinogen D-Dimer Heparin Anti-Xa Level POC ABG pH POC ABG pCO2 POC ABG pO2 Sodium Potassium 5.2 H Chloride Carbon Dioxide BUN 69 H Creatinine 3.4 H Glucose 192 H POC Glucose 167 H Hemoglobin A1c Lactic Acid Calcium 6.4 L D Phosphorus Iron TIBC AST 57 H ALT 189 H Alkaline Phosphatase Total Creatine Kinase CK-MB (CK-2) C-Reactive Protein Total Protein 4.2 L Albumin 2.6 L Vitamin B12 Urine WBC (Auto) Urine Creatinine Crossmatch 06/05/16 06/05/16 06/05/16 05:53 08:03 12:21 WBC RBC Hgb Hct MCHC RDW Plt Count Seg Neuts % (Manual) Lymphocytes % (Manual) Nucleated RBC % Seg Neutrophils # Man Lymphocytes # (Manual) Monocytes # (Manual) PT INR APTT Fibrinogen D-Dimer Heparin Anti-Xa Level POC ABG pH 7.310 L POC ABG pCO2 POC ABG pO2 Sodium Potassium Chloride Carbon Dioxide BUN Creatinine Glucose POC Glucose 226 H 188 H Hemoglobin A1c Lactic Acid Calcium Phosphorus Iron TIBC AST ALT Alkaline Phosphatase Total Creatine Kinase CK-MB (CK-2) C-Reactive Protein Total Protein Albumin Vitamin B12 Urine WBC (Auto) Urine Creatinine Crossmatch 06/05/16 06/05/16 06/05/16 14:00 18:22 22:30 WBC 53.4 H* RBC 3.24 L Hgb 9.3 L 8.4 L Hct 29.0 L 25.9 L MCHC RDW 15.4 H Plt Count 76 L Seg Neuts % (Manual) 100.0 H Lymphocytes % (Manual) 0 L Nucleated RBC % Seg Neutrophils # Man 53.4 H Lymphocytes # (Manual) 0.0 L Monocytes # (Manual) PT INR APTT Fibrinogen D-Dimer Heparin Anti-Xa Level POC ABG pH POC ABG pCO2 POC ABG pO2 Sodium Potassium Chloride Carbon Dioxide BUN Creatinine Glucose POC Glucose 256 H Hemoglobin A1c Lactic Acid Calcium Phosphorus Iron TIBC AST ALT Alkaline Phosphatase Total Creatine Kinase CK-MB (CK-2) C-Reactive Protein Total Protein Albumin Vitamin B12 Urine WBC (Auto) Urine Creatinine Crossmatch 06/05/16 06/06/16 06/06/16 23:48 03:48 05:28 WBC RBC Hgb Hct MCHC RDW Plt Count Seg Neuts % (Manual) Lymphocytes % (Manual) Nucleated RBC % Seg Neutrophils # Man Lymphocytes # (Manual) Monocytes # (Manual) PT INR APTT Fibrinogen D-Dimer Heparin Anti-Xa Level POC ABG pH POC ABG pCO2 POC ABG pO2 Sodium Potassium 5.3 H Chloride Carbon Dioxide 21 L BUN 88 H Creatinine 4.3 H Glucose 225 H POC Glucose 258 H 248 H Hemoglobin A1c Lactic Acid Calcium 6.6 L Phosphorus 8.3 H Iron TIBC AST ALT Alkaline Phosphatase Total Creatine Kinase CK-MB (CK-2) C-Reactive Protein Total Protein Albumin Vitamin B12 Urine WBC (Auto) Urine Creatinine Crossmatch 06/06/16 06/06/16 06/06/16 12:10 12:10 12:10 WBC 46.1 H* RBC 3.47 L Hgb 10.4 L Hct 31.6 L MCHC RDW Plt Count 30 L Seg Neuts % (Manual) Lymphocytes % (Manual) Nucleated RBC % Seg Neutrophils # Man Lymphocytes # (Manual) Monocytes # (Manual) PT 19.8 H INR 1.68 H APTT 48.5 H Fibrinogen D-Dimer Heparin Anti-Xa Level POC ABG pH POC ABG pCO2 POC ABG pO2 Sodium Potassium Chloride Carbon Dioxide 21 L BUN 44 H Creatinine 2.7 H Glucose 209 H POC Glucose Hemoglobin A1c Lactic Acid Calcium 6.5 L Phosphorus Iron TIBC AST 640 H ALT 446 H Alkaline Phosphatase 139 H Total Creatine Kinase 1753 H CK-MB (CK-2) 5.8 H C-Reactive Protein Total Protein 4.4 L Albumin 2.8 L Vitamin B12 Urine WBC (Auto) Urine Creatinine Crossmatch
--- NOTE | 2016-06-06 13:18 | Progress Note ---
Assessment and Plan Current antibiotics: Fluconazole 200 mg IV q24h 06/03 --> Vancomycin IV 06/01 --> Zosyn 2.25 g IV q8h 06/01 --> Metronidazole 500 mg IV q8h 05/24 --> Previous antibiotics: Levaquin 750 mg IV q24h 05/22-05/26 Corticosteroids: Solu-Medrol 60 mg IV q6h 05/23 --> ASSESSMENT: Avery Hansen is an 80-year-old male with COPD on home O2, HTN, HLD, obesity and DM2, who was admitted to [facility] on 2016 with worsening shortness of breath and probable COPD exacerbation and developed a sepsis syndrome. Problem list: 1. Sepsis syndrome -Unclear etiology -Respiratory failure, AMS, hypotension, lactic acidosis, RUBIA/HD, marked leukocytosis, elevated liver tests (? shock liver), thrombocytopenia -Rule out pulmonary source although chest x-ray without pneumonia -Rule out intra-abdominal source -Rule out secondary to retroperitoneal hematoma --patient decompensated, went into asystole and was resuscitated, he is now hypotensive requiring blood pressure support --all blood cultures remain negative -family is at bedside, decisions to be made regarding further care 2. Fever -Tmax 102.2 on 06/03 -Afebrile on steriods -Likely same etiology as #1 3. Leukocytosis -Leukemoid reaction -Secondary to sepsis +/- corticosteroids 4. Positive blood culture -05/31 bottles on 06/01/16 with [employer] = contaminant 5. Ileus versus SBO 6. Anemia - probably multi-factorial - Probable right retroperitoneal bleed - s/p PRBC transfusion 6 Thrombocytopenia - R/O sepsis +/-drug toxicity ? vancomycin and/or Zosyn 7. Bacteriuria/funguria - Probable colonization with indwelling Griffin catheter -Rule out UTI PLAN: 1. Continue current therapy for now 2. won't make changes until family meeting today, will continue current aggressive antibiotic course 3. Continue intensive supportive measures Subjective Date of service: 06/06/16 Principal diagnosis: Acute on Chronic Hypoxemic Respiratory Failure Interval history: Patient is unresponsive, he coded this morning during hemodialysis with asystole and was resuscitated, now on blood pressure support Objective - Constitutional Vitals: Selected Entries 06/06/16 06/06/16 06/06/16 07:13 09:45 12:00 Temperature 101.2 F H 101.2 F H 97.4 F L Pulse Rate O2 Sat by Pulse Oximetry Blood Pressure 06/06/16 06/06/16 06/06/16 12:07 12:15 12:30 Temperature Pulse Rate 103 H O2 Sat by Pulse 98 Oximetry Blood Pressure 162/55 66/38 General appearance: Present: other (intubated) - EENT Eyes: no scleral icterus, no conjunctival injection ENT: other (sedated) - Neck Neck: no enlarged thyroid - Breasts Breasts: deferred - Cardiovascular Rhythm: regular Heart Sounds: Present: systolic murmur - Gastrointestinal General gastrointestinal: Present: soft, hypoactive bowel sounds - Labs CBC & Chem 7: 06/06/16 12:10 06/06/16 12:10 Labs: Microbiology 06/02/16 14:50 Urine,Catheterized - Indwelling Catheter Urine Culture - Final 06/01/16 17:06 Peripheral/Venous Blood Culture - Preliminary NO GROWTH AFTER 4 DAYS 06/01/16 16:52 Peripheral/Venous Blood Culture - Preliminary NO GROWTH AFTER 4 DAYS 06/01/16 14:05 Peripheral/Venous Blood Culture - Preliminary Coag Negative Staphylococcus Laboratory Tests 06/05/16 06/05/16 06/06/16 05:00 14:00 03:48 WBC 53.4 H* Hgb Plt Count Creatinine 4.3 H AST ALT Alkaline Phosphatase Random Vancomycin 14.8 06/06/16 06/06/16 12:10 12:10 WBC 46.1 H* Hgb 10.4 L Plt Count 30 L Creatinine 2.7 H AST 640 H ALT 446 H Alkaline Phosphatase 139 H Random Vancomycin
[2016-06-06 13:35] LABS: Anisocytosis 1+; Basophils % (Manual) 0 % (0.0-1.8); Blastocytes % (Manual) 0 %; Eosinophils % (Manual) 0 % (0.0-4.3)
[2016-06-06 13:37] LABS: Diff Status Complete; Platelet Estimate Consistent w Auto
--- NOTE | 2016-06-06 14:00 | XRay Report ---
AP CHEST : 06/06/16 13:38 CLINICAL: Status post cardiac arrest. COMPARISON:06/02/16 FINDINGS: Endotracheal tube is in satisfactory position. A large right pneumothorax has developed since the previous exam. Shift of the heart to the left. Suspect right-sided rib fractures. The heart and vasculature are normal and unchanged . IMPRESSION: Large right pneumothorax. I spoke to his nurse Rebecca Caraballo regarding this finding at 13:59 on 06/06/16. She is going to relay the message to his physician.
--- NOTE | 2016-06-06 15:11 | Event Note ---
Date: 06/06/16 Patients chest xray post code reported large right Pneumothorax. Planned to insert chest tube. Patients family does not want any interventions.Family thinking off with drawing from the Life support.
[2016-06-06 16:18] VITALS: BP 157/98
[2016-06-06] MEDS ORDERED: ATIVAN IV PRN (17:16)
[2016-06-06] MEDS ORDERED: ROBINUL IV PRN (17:16)
[2016-06-06] MEDS ORDERED: MORPHINE IV PRN (17:16)
--- NOTE | 2016-06-06 19:09 | Event Note ---
Date: 06/06/16 Was called to assess patient No vital signs Patient was pronounced at533 pm Time of expiration 533 pm
[2016-06-06] MEDS ORDERED: ADRENALIN ONE (19:28)
[2016-06-06] MEDS ORDERED: CORDARONE IV ONE (19:28)
[2016-06-06] MEDS ORDERED: TPN ADULT 2,016 ML IV SCH (20:00)
--- NOTE | 2016-06-07 19:39 | Discharge Summary ---
Providers - Providers Date of Admission: 05/22/16 15:37 Attending physician: ZELDA SUMMERS MD 05/26/16 12:31 PICC Line Insertion [Consult to PICC Line RN] [CONS] Stat Reason For Exam: hypotension Type Line:: PICC 05/26/16 14:36 Consult to Dietitian/Nutrition [CONS] Routine Physician Instructions: Reason For Exam: Reason for Consult: Write/Manage Tube Feeding 05/26/16 16:34 Consult to Physician [CONS] Routine Consulting Provider: ZULEIMA PORTILLO Reason For Exam: suspect GI bleed Place consult to:: Notified:: yes Phone number called:: [phone] Was contact made?: Yes If yes, spoke with:: laith Time called:: 16:45 05/27/16 12:11 Consult to Physician [CONS] Routine Consulting Provider: RAZA FLYNN Reason For Exam: RUBIA Place consult to:: DR. FLYNN Notified:: YES 05/30/16 11:36 Consult to Interventional Radiology [CONS] Urgent Consulting Provider: LOREE GIL Reason For Exam: Vascath placement Notified:: no 06/02/16 11:24 Consult to Physician [CONS] Routine Consulting Provider: SRIRAM URENA Reason For Exam: SBO Place consult to:: answering service Notified:: yes If yes, spoke with:: adair Dillon called:: 12:15 06/02/16 12:09 Consult to Physician [CONS] Urgent Consulting Provider: MARIANELA MAGAÑA Reason For Exam: Small bowel obstruction Place consult to:: surgery [facility] Notified:: no 06/02/16 12:10 Consult to Physician [CONS] Urgent Consulting Provider: NOAH RAMIREZ Reason For Exam: infectious disease Place consult to:: sepsis Notified:: no 06/03/16 13:32 Consult to Physician [CONS] Routine Consulting Provider: NICOLE WARNER Reason For Exam: low plts Place consult to:: dr warner Notified:: office Phone number called:: [phone] Was contact made?: Yes If yes, spoke with:: jeanna;abdiel Time called:: 13:38 Comment:: dr solomon blood bank calendar control clerk 06/04/16 10:01 Consult to Wound/ET Nurse [CONS] Routine Reason For Exam: wound eval- R heel and sacrum 06/05/16 15:06 Consult to Dietitian/Nutrition [CONS] Stat Physician Instructions: Reason For Exam: Reason for Consult: Write/Manage TPN/PPN 06/05/16 15:55 Consult to Physician [CONS] Routine Consulting Provider: MARIANELA MAGAÑA Reason For Exam: tracheostomy placement Place consult to:: Notified:: yes Was contact made?: Yes 05/23/16 04:22 Consult to Physician [CONS] Routine Consulting Provider: TIM DUBON Reason For Exam: copd exacerbation Place consult to:: DR FINE Notified:: DR FINE Primary care physician: VEST BASTER Hospitalization Condition: Stable Hospital course: Patient is a 80-year-old man with a history of type 2 diabetes mellitus, hypertension, dyslipidemia and chronic respiratory failure on 3 L oxygen at home due to COPD who presented with shortness breath and a cough on 05/22/2016. He was admitted for COPD exacerbation, He was placed on BiPAP. And then intubated on May 26, 2016. So, he was treated with iv heparin for suspected thromboembolism while awaiting VQ scan versus CTA chest. During his hospital course hematocrit started dropping, requiring blood transfusion and consultation with gastroenterology, heparin was dc. He was found to have retroperitoneal hematoma, all blood thinners were held and he received multiple transfusions. His renal function deteriorated required renal replacement therapy , His suffered multi organ damage due to severe sepsis (which required pressors ) which included respiratory failure kidney failure and shock liver, he was was maintained on vent, he developed SBO due to ileus that was rx conservatively with NG tube to suction. He was put on broad spectrum abx and antifungals, He had extensive aggresive therapy but continued to deteriorate until he was found pulseless, his cardiac rythym varied between asystole, V-tach, he received CPR x 1 and regained his pulse. His family came by and then decided to make him DNR and withdraw care. ID, Surgery, GI, and Pulmonology comanaged this patient, He shortly after vent was withdrawn Discharge Dx Acute on chronic hypoxic respiratory failure/ COPD exacerbation Acute blood loss anemia Acute kidney injury- Diabetes mellitus uncontrolled SBO/Ileus Severe Sepsis with multi-organ failure Disposition: Time spent for discharge: 35 minutes Core Measure Documentation - Palliative Care Palliative Care/ Comfort Measures: Not Applicable - Core Measures Any of the following diagnoses?: none Exam - Physical Exam Narrative exam: NOt applicable, - Constitutional Vitals: Temp Pulse Resp BP Pulse Ox 97.4 F L 120 H 23 157/98 98 06/06/16 16:54 06/06/16 16:01 06/06/16 16:01 06/06/16 16:01 06/06/16 16:01 Plan Follow up with: PRIMARY CARE, [Primary Care Provider] - 3-5 Days
== END 2016-06-06 17:33 | DRG 207 ==
LOC: ED 13:51 → 4A 15:37 → CC1 05-26 12:50
PROVIDERS: ADMIT Internal Medicine; ATTEND Internal Medicine
PROC: 30233N1 Transfusion of Nonautologous Red Blood Cells into Peripheral Vein, Percutaneous Approach (ICD-10-PCS; 2016-05-26)
PROC: 02HV33Z Insertion of Infusion Device into Superior Vena Cava, Percutaneous Approach (ICD-10-PCS; 2016-05-26)
PROC: 06HM33Z Insertion of Infusion Device into Right Femoral Vein, Percutaneous Approach (ICD-10-PCS; principal; 2016-05-30)
PROC: 5A1955Z Respiratory Ventilation, Greater than 96 Consecutive Hours (ICD-10-PCS; 2016-05-30)
PROC: 0BH17EZ Insertion of Endotracheal Airway into Trachea, Via Natural or Artificial Opening (ICD-10-PCS; 2016-05-30)
PROC: B54BZZA Ultrasonography of Right Lower Extremity Veins, Guidance (ICD-10-PCS; 2016-05-30)
PROC: 5A1D60Z (ICD-10-PCS; 2016-05-30)
DX: J96.21 Acute and chronic respiratory failure with hypoxia (principal); A41.9 Sepsis, unspecified organism; K72.00 Acute and subacute hepatic failure without coma; K66.1 Hemoperitoneum; R65.20 Severe sepsis without septic shock; J44.1 Chronic obstructive pulmonary disease with (acute) exacerbation; E87.2 Acidosis; D62 Acute posthemorrhagic anemia; N17.9 Acute kidney failure, unspecified; I74.9 Embolism and thrombosis of unspecified artery; K56.69 Other intestinal obstruction; E78.5 Hyperlipidemia, unspecified; J30.9 Allergic rhinitis, unspecified; E11.65 Type 2 diabetes mellitus with hyperglycemia; I12.9 Hypertensive chronic kidney disease with stage 1 through stage 4 chronic kidney disease, or unspecified chronic kidney disease; N18.3 Chronic kidney disease, stage 3 (moderate); E11.22 Type 2 diabetes mellitus with diabetic chronic kidney disease; Z66 Do not resuscitate; E87.5 Hyperkalemia; D69.6 Thrombocytopenia, unspecified; E83.51 Hypocalcemia; E66.01 Morbid (severe) obesity due to excess calories; Z68.27 Body mass index [BMI] 27.0-27.9, adult; D63.1 Anemia in chronic kidney disease; Z99.81 Dependence on supplemental oxygen; Z79.899 Other long term (current) drug therapy; Z79.82 Long term (current) use of aspirin; Z87.891 Personal history of nicotine dependence; Z51.5 Encounter for palliative care
CPT/HCPCS: 31500; 36415; 36430; 36600; 71010; 74000; 74176; 76770; 80048; 80053; 80061; 80074; 80202; 81001; 82140; 82550; 82553; 82570; 82607; 82728; 82747; 82803; 82805; 82962; 83036; 83550; 83735; 83880; 84100; 84300; 84484; 85007; 85014; 85018; 85025; 85027; 85045; 85049; 85240; 85379; 85384; 85520; 85610; 85730; 86022; 86140; 86850; 86900; 86901; 86920; 87040; 87070; 87086; 87205; 93005; 93010; 93306; 93970; 94002; 94003; 94640; 94644; 94660; 94760; 96361; 96365; 96366; C9113; J0171; J0282; J0885; J1170; J1265; J1450; J1644; J1650; J1815; J1818; J1940; J1956; J2060; J2250; J2370; J2543; J2765; J2920; J3010; J3246; J3370; J7030; J7040; J7050; J7070; P9016; P9045; P9047